=== PATIENT | male | born 1955 | race Caucasian/White ===

== ENCOUNTER 2019-03-15 01:48 | Inpatient (IN) | payer MEDICAID, SELFPAY ==
[2019-03-15] VITALS (15 sets, daily range): BP systolic 125–173; BP diastolic 61–91; PULSE 55–171; RESP 16–24; TEMP 36.6–36.9; O2SAT 92–100; BMI 35.2
--- NOTE | 2019-03-15 02:04 | ED_ITS ---
Entered by Perri Zaidi, acting as scribe for Gali Manrique HPI - Altered Mental Status General: Chief Complaint: Back Pain/Injury Stated Complaint: CONFUSION/AMS Time Seen by Provider: 03/15/19 02:03 Source: EMS Mode of arrival: EMS History of Present Illness: HPI narrative: 63 y/o male presents to the ED with some mental status changes. EMS states he was slow to respond and sluggish upon their arrival. He is a known diabetic and his sugar was 63. Pt has not been eating and drinking much, per EMS. Upon arrival at [facility], pt is complaining of left flank pain. Pt has audible wheezes upon triage. MD complaint: altered mental status and confusion Severity: mild Treatments prior to arrival: oxygen and other (OJ) Review of Systems Const: Denies: fever, chills, body aches or diaphoresis Eyes: Denies: change in vision or blurry vision ENMT: Denies: throat pain, painful swallowing, hoarseness, ear pain, ear discharge, Change in hearing or nasal discharge Card: Denies: chest pain, palpitations, irregular heart rhythm, syncope, pre-syncope, shortness of breath on exertion or shortness of breath when lying down GI: Denies: abdominal pain, nausea, vomiting, vomiting blood, coffee grounds in vomit, diarrhea, constipation, cramping, blood in stool or black tarry stool : Denies: difficulty urinating, painful urination, urinary frequency, urinary urgency, decreased urine ouput, urinary incontinence or blood in urine Musc: Denies: neck pain, back pain, extremity pain, extremity swelling, joint pain, joint swelling, joint warmth or joint stiffness Skin/Breast: Denies: rash, skin tenderness or yellow skin Neuro: Denies: headache, numbness in extremities, weakness in extremities, changes in sensation, lack of coordination, difficulty walking, dizziness, v ertigo or confusion Endo: Denies: excessive thirst, tired all the time, cold intolerance, excessive sweating, flushing or hot flashes Alfonso/Lymph: Denies: easy bruising, easy bleeding, petechiae or enlarged lymph nodes All/Imm: Denies: hives, throat swelling, tongue swelling, facial swelling or acute wheezing PFSH ED PFSH: Statuses (acute, chronic, etc) shown below reflect problem list status as previously entered and may not be historically accurate Medical History (Updated 03/15/19 @ 02:09 by Perri Zaidi) COPD (chronic obstructive pulmonary disease) (Acute) Social History Smoking and tobacco status: never smoked Physical Exam HENMT: COMMON NORMALS: normocephalic, head/scalp atraumatic, hearing grossly normal bilaterally, external ears normal, EAC's normal, external nose normal and moist oral mucous membranes HEAD & SCALP: normal to inspection, normocephalic and atraumatic FACE & SINUS: normal facial exam and face symmetric NOSE: external nose normal and nares normal EXTERNAL EAR: Yes external ears normal EXTERNAL AUDITORY CANAL: EAC's normal MOUTH: oral and palatal mucosa normal and tongue normal Eye: COMMON NORMALS: PERRL, EOMs intact bilaterally, conjunctivae normal and no scleral icterus GENERAL EYE: normal appearance of both eyes and normal light reflex CONJUNCTIVA: Yes conjunctivae normal SCLERA: sclerae normal CORNEA: Yes corneas normal PUPIL: Yes PERRL DIRECT OPHTHALMOSCOPY: Yes normal light reflex Neck/C-Spine: COMMON NORMALS: full ROM, no lymphadenopathy, supple, no meningeal signs and no JVD GENERAL: Yes normal visual inspection and Yes trachea midline CERVICAL SPINE: Yes cervical ROM normal Chest: COMMONS NORMALS: inspection of chest normal and palpation of chest normal Cardio: COMMON NORMALS: no JVD, regular rate, regular rhythm, S1 normal heart sound, S2 normal heart sound, no gallops, no clicks, no murmurs and no rub JUGULAR VENOUS DISTENTION: no JVD RATE: regular rate RHYTHM: regular rhythm HEART SOUNDS: S1 normal and S2 normal GI: COMMON NORMALS: soft to palpation, non-tender, no hepatosplenomegaly and no masses INSPECTION: Yes normal to inspection PALPATION: Yes soft and Yes no hepatosplenomegaly : COMMON NORMALS: Yes no CVA tenderness BLADDER/KIDNEY EXAM: Yes no CVA tenderness Back/Pelvis: COMMON NORMALS: no CVA tenderness, thoracic and lumbar spine normal to inspection, no thoracic nor lumbar tenderness and thoraco-lumbar ROM normal Extremity: COMMON NORMALS: normal to inspection, full ROM, normal capillary refill, no joint enlargement, no clubbing, cyanosis or edema and no calf tenderness Neuro: COMMON NORMALS: CN's II-XII intact bilaterally, moves all extremities, no focal motor deficits and no sensory deficits noted MENINGEAL SIGNS: Yes no meningeal signs Psych: COMMON NORMALS: mental status grossly normal, thought process normal, cooperative, affect normal, speech normal and activity/motor behavior normal SPEECH: Yes normal speech THOUGHT PROCESS: normal thought process Skin: COMMON NORMALS: no rashes or lesions noted, skin turgor normal, no jaundice, no petechiae and no mottling GENERAL SKIN EXAM: no rashes or lesions noted and turgor normal Course Vital Signs: Vital signs: Vital Signs Temperature 98.4 F 03/15/19 02:07 Pulse Rate 55 L 03/15/19 03:09 Respiratory Rate 20 H 03/15/19 03:05 Blood Pressure 142/81 03/15/19 02:07 Pulse Oximetry 98 03/15/19 03:05 MDM - Altered Mental Status MDM Narrative: Medical decision making narrative: Dilcia comes in with altered mental status. EMS reports low blood sugar and improvement with oral replacement of sugar. Upon my examination the patient appears as though he is in respiratory distress. After starting him on nitroglycerin he is greatly improved. He looks as though he has a metabolic acidosis I think this is secondary to his uremia. He has acute on chronic renal failure. Family has arrived and state the patient is at his baseline as far as breathing and mental function. Is unclear what caused the patient's hypoglycemia or his acute on chronic renal failure but I believe he will need to be admitted for further evaluation. I reviewed the case in full with , who is agreeable to admission for further evaluation and care. Lab Data: Attestation: I reviewed the patient's lab results. Labs: Lab Results 03/15/19 03/15/19 03/15/19 Range/Units 01:30 01:30 01:30 WBC 11.4 H (4.0-10.0) 10^3/ uL RBC 3.98 L (4.1-5.3) 10^6/u L Hgb 11.5 L (11.7-16.6) g/dL Hct 35.3 L (42.0-52.0) % MCV 88.7 (80-94) fL MCH 28.9 (28.0-34.0) pg MCHC 32.6 (30.0-36.0) g/dL RDW 13.7 (12.1-15.1) % Plt Count 364 (130-400) 10^3/c mm MPV 9.5 (7.4-10.4) fL Neut % (Auto) 81.7 % Lymph % (Auto) 12.9 % [place] % (Auto) 4.8 % Eos % (Auto) 0.1 % Baso % (Auto) 0.3 % Neut # (Auto) 9.3 H (1.8-7.7) 10^3/u L Lymph # (Auto) 1.5 (0.8-4.8) 10^3/u L [place] # (Auto) 0.6 (0.2-0.9) 10^3/u L Eos # (Auto) 0.0 (0.0-0.8) 10^3/u L Baso # (Auto) 0.0 (0.0-0.1) 10^3/u L Nucleated RBC % (a uto) 0 % Nucleated RBCs # 0.0 /100WBC PT 13.70 H (10.5-13.3) SECO NDS INR 1.02 (0.8-1.2) Specimen Type Sample Site ABG pH (7.35-7.45) ABG pCO2 (35-45) mmHg ABG pO2 (80.0-100.0) mmH g ABG HCO3 (22-26) mmol/L ABG Base Excess (-2.0-2.0) mmol/ L Ted Test Hematocrit (42-52) % O2 Delivery Device O2 Liters/Min % Mailroom Personnel ID Sodium 135 L (136-145) mmol/L Potassium 5.1 (3.5-5.1) mmol/L Chloride 91 L (98-107) mmol/L Carbon Dioxide 21 L (22-29) mmol/L Anion Gap 28.1 H (5-19) BUN 149 H* (8-23) mg/dL Creatinine 5.9 H* (0.7-1.2) mg/dL GFR Calculation 9.7 L (90-130) mL/min Glucose 104 (74-106) mg/dL Lactic Acid (0.5-2.2) mmol/L Calcium 9.1 (8.8-10.2) mg/Dl Magnesium 2.7 H (1.7-2.3) mg/dL Total Bilirubin 0.2 (0.15-1.2) mg/dL AST 26 (0-40) U/L ALT 23 (0-41) U/L Alkaline Phosphata se 69 (40-130) IU/L Ammonia (16-60) umol/L Troponin T Baselin e (0-15) ng/mL Troponin T 120 Min swati (0-15) ng/mL Delta Troponin T (0-10) ABS# NT-Pro-B Natriuret Pep 1862 H (0-125) pg/mL Total Protein 8.0 (6.6-8.7) g/dL Albumin 4.2 (3.5-5.2) g/dL Globulin 3.8 (1.3-4.6) g/dL Lipase 57 (13-60) U/L Ethyl Alcohol < 10 (0-10) mg/dL 03/15/19 03/15/19 03/15/19 Range/Units 01:30 02:58 02:58 WBC (4.0-10.0) 10^3/ uL RBC (4.1-5.3) 10^6/u L Hgb (11.7-16.6) g/dL Hct (42.0-52.0) % MCV (80-94) fL MCH (28.0-34.0) pg MCHC (30.0-36.0) g/dL RDW (12.1-15.1) % Plt Count (130-400) 10^3/c mm MPV (7.4-10.4) fL Neut % (Auto) % Lymph % (Auto) % [place] % (Auto) % Eos % (Auto) % Baso % (Auto) % Neut # (Auto) (1.8-7.7) 10^3/u L Lymph # (Auto) (0.8-4.8) 10^3/u L [place] # (Auto) (0.2-0.9) 10^3/u L Eos # (Auto) (0.0-0.8) 10^3/u L Baso # (Auto) (0.0-0.1) 10^3/u L Nucleated RBC % (a uto) % Nucleated RBCs # /100WBC PT (10.5-13.3) SECO NDS INR (0.8-1.2) Specimen Type Sample Site ABG pH (7.35-7.45) ABG pCO2 (35-45) mmHg ABG pO2 (80.0-100.0) mmH g ABG HCO3 (22-26) mmol/L ABG Base Excess (-2.0-2.0) mmol/ L Ted Test Hematocrit (42-52) % O2 Delivery Device O2 Liters/Min % Mailroom Personnel ID Sodium (136-145) mmol/L Potassium (3.5-5.1) mmol/L Chloride (98-107) mmol/L Carbon Dioxide (22-29) mmol/L Anion Gap (5-19) BUN (8-23) mg/dL Creatinine (0.7-1.2) mg/dL GFR Calculation (90-130) mL/min Glucose (74-106) mg/dL Lactic Acid 0.9 (0.5-2.2) mmol/L Calcium (8.8-10.2) mg/Dl Magnesium (1.7-2.3) mg/dL Total Bilirubin (0.15-1.2) mg/dL AST (0-40) U/L ALT (0-41) U/L Alkaline Phosphata se (40-130) IU/L Ammonia 12 L (16-60) umol/L Troponin T Baselin e 245 H* (0-15) ng/mL Troponin T 120 Min swati (0-15) ng/mL Delta Troponin T (0-10) ABS# NT-Pro-B Natriuret Pep (0-125) pg/mL Total Protein (6.6-8.7) g/dL Albumin (3.5-5.2) g/dL Globulin (1.3-4.6) g/dL Lipase (13-60) U/L Ethyl Alcohol (0-10) mg/dL 03/15/19 03/15/19 Range/Units 03:20 04:00 WBC (4.0-10.0) 10^3/ uL RBC (4.1-5.3) 10^6/u L Hgb (11.7-16.6) g/dL Hct (42.0-52.0) % MCV (80-94) fL MCH (28.0-34.0) pg MCHC (30.0-36.0) g/dL RDW (12.1-15.1) % Plt Count (130-400) 10^3/c mm MPV (7.4-10.4) fL Neut % (Auto) % Lymph % (Auto) % [place] % (Auto) % Eos % (Auto) % Baso % (Auto) % Neut # (Auto) (1.8-7.7) 10^3/u L Lymph # (Auto) (0.8-4.8) 10^3/u L [place] # (Auto) (0.2-0.9) 10^3/u L Eos # (Auto) (0.0-0.8) 10^3/u L Baso # (Auto) (0.0-0.1) 10^3/u L Nucleated RBC % (a uto) % Nucleated RBCs # /100WBC PT (10.5-13.3) SECO NDS INR (0.8-1.2) Specimen Type Arterial Sample Site Radial, left ABG pH 7.27 L (7.35-7.45) ABG pCO2 45.2 H (35-45) mmHg ABG pO2 105.0 H (80.0-100.0) mmH g ABG HCO3 20.8 L (22-26) mmol/L ABG Base Excess -5.9 L (-2.0-2.0) mmol/ L Ted Test Pos Hematocrit 31.6 L (42-52) % O2 Delivery Device Nc O2 Liters/Min 5.0 % Mailroom Personnel ID [email or web address] Sodium (136-145) mmol/L Potassium (3.5-5.1) mmol/L Chloride (98-107) mmol/L Carbon Dioxide (22-29) mmol/L Anion Gap (5-19) BUN (8-23) mg/dL Creatinine (0.7-1.2) mg/dL GFR Calculation (90-130) mL/min Glucose (74-106) mg/dL Lactic Acid (0.5-2.2) mmol/L Calcium (8.8-10.2) mg/Dl Magnesium (1.7-2.3) mg/dL Total Bilirubin (0.15-1.2) mg/dL AST (0-40) U/L ALT (0-41) U/L Alkaline Phosphata se (40-130) IU/L Ammonia (16-60) umol/L Troponin T Baselin e (0-15) ng/mL Troponin T 120 Min swati 214.50 H (0-15) ng/mL Delta Troponin T -30.50 L (0-10) ABS# NT-Pro-B Natriuret Pep (0-125) pg/mL Total Protein (6.6-8.7) g/dL Albumin (3.5-5.2) g/dL Globulin (1.3-4.6) g/dL Lipase (13-60) U/L Ethyl Alcohol (0-10) mg/dL Imaging Data^: CXR: My impression: Cardiomegaly and mild pulmonary vascular congestion. CT Head: Radiologist's impression: [place] [address] CT Scan Report Signed Patient: Helio Reynoso Unit #: [id number] : 1955 Age/Sex: 63 / M ADM Date: 03/15/19 Loc: ER Room/Bed: Attending Dr: Ordering Provider/Ordering MD: Gali Manrique DO Date of Service: 03/15/19 Procedure(s): CT head wo con* [id number] Accession Number(s): [id number] Report Number: [id number] PROCEDURE INFORMATION: Exam: CT Head Without Contrast Exam date and time: 03/15/2019 2:47 AM Age: 63 years old Clinical indication: Pain; Altered mental status/memory loss; Headache not specified; Additional info: Phan/ams TECHNIQUE: Imaging protocol: Computed tomography of the head without contrast. Total DLP: 1630.24 mGy-cm Radiation optimization: All CT scans at this facility use at least one of these dose optimization techniques: automated exposure control; mA and/or kV adjustment per patient size (includes targeted exams where dose is matched to clinical indication); or iterative reconstruction. COMPARISON: MRI IAC'S w/wo* [id number] 01/05/2017 8:35 AM FINDINGS: Brain: Few chronic lacunar infarcts bilaterally. Brain atrophy with hypodensities in the periventricular/deep white matter that suggest chronic microvascular ischemia. Ventricles: No hydrocephalus. Bones/joints: No acute fracture. Sinuses: Trace chronic paranasal sinus disease. Mastoid air cells: No significant mastoid effusion. Soft tissues: Unremarkable. Vasculature: Vascular calcifications. CT/CT head wo con* [id number] IMPRESSION: No acute intracranial abnormality. Radiation Dose CTDIVOL = (mGy): DLP = 1630.24 (mGy-cm) Dictated By: Misael Small MD Signed By: Misael Small MD Signed Date/Time: 03/15/19421 DD/ 0 CT Abd/Pel: Radiologist's impression: [address] [address] [address] Scan Report Signed Patient: Helio Reynoso Unit #: [id number] : 1955 Age/Sex: 63 / M ADM Date: 02/23 04/13 Loc: ER Room/Bed: Attending Dr: Ordering Provider/Ordering MD: Gali Manrique DO Date of Service: 03/15/19 Procedure(s): CT kidney stone [id number] Accession Number(s): [id number] Report Number: [id number] PROCEDURE INFORMATION: Exam: CT Abdomen And Pelvis Without Contrast Exam date and time: 03/15/2019 2:46 AM Age: 63 years old Clinical indication: Abdominal pain; Flank; Left; Additional info: Flank/abdominal pain TECHNIQUE: Imaging protocol: Computed tomography of the abdomen and pelvis without contrast. Total DLP: 1858.2 mGy-cm Radiation optimization: All CT scans at this facility use at least one of these dose optimization techniques: automated exposure control; mA and/or kV adjustment per patient size (includes targeted exams where dose is matched to clinical indication); or iterative reconstruction. COMPARISON: US Renal Kidney Structu* [id number] 01/15/2019 7:41 AM FINDINGS: Mediastinum: Small hiatal hernia. Liver: Normal. No mass. Gallbladder and bile ducts: Cholelithiasis without pericholecystic inflammatory changes. Pancreas: Normal. No ductal dilation. Spleen: Calcified splenic granulomas. Adrenals: Normal. No mass. Kidneys and ureters: Normal. No hydronephrosis. Stomach and bowel: Large right lumbar hernia containing colon without inflammation or obstruction. Appendix: Normal appendix. Intraperitoneal space: No free air. No significant fluid collection. Vasculature: No abdominal aortic aneurysm. Lymph nodes: No enlarged lymph nodes. Bladder: Unremarkable as visualized. Reproductive: Unremarkable as visualized. Bones/joints: Postsurgical changes affect the right iliac bone. Soft tissues: Unremarkable. CT/CT kidney stone [id number] IMPRESSION: 1. Large right lumbar hernia containing colon without inflammation or obstruction. 2. Cholelithiasis without pericholecystic inflammatory changes. Radiation Dose CTDIVOL = (mGy): DLP = 1858.2 (mGy-cm) Dictated By: Misael Small MD Signed By: Misael Small MD Signed Date/Time: 03/15/19438 DD/ 7 EKG Data^: EKG 1: Attestation: I personally reviewed and interpreted this EKG as follows: Computer generated interpretation: 0238 -normal sinus rhythm at 61 beats a minute, no acute ST or T wave changes. Prolonged QT. EKG 2: Attestation: I personally reviewed and interpreted this EKG as follows: Interpretation: EKG at 0424 -normal sinus rhythm at 64 beats a minute, no acute ST or T wave changes, normal HI interval, normal QTC. Discharge Plan Discharge Prescriptions: No Action Daily Multi-Vitamin Tablet 1 tab PO DAILY RF: 0 furosemide 40 mg tablet 80 mg PO BID RF: 0 Lantus U-100 Insulin 100 unit/mL solution 40 unit SUBCUT BID RF: 0 metoprolol succinate 100 mg tablet extended release 24 hr 200 mg PO DAILY RF: 0 metolazone 5 mg tablet 5 mg PO DAILY RF: 0 aspirin 81 mg tablet,delayed release (DR/EC) 81 mg PO DAILY RF: 0 levothyroxine 88 mcg tablet 88 mcg PO DAILY RF: 0 clonidine HCl 0.2 mg tablet 0.2 mg PO TID RF: 0 amlodipine 10 mg tablet 10 mg PO DAILY RF: 0 ferrous sulfate 325 mg (65 mg iron) tablet,delayed release (DR/EC) 325 mg PO DAILY RF: 0 Novolog Flexpen U-100 Insulin 100 unit/mL (3 mL) insulin pen 18 unit SUBCUT BID RF: 0 Vitamin D3 25 mcg (1,000 unit) tablet 1,000 unit PO DAILY RF: 0 Symbicort 160-4.5 mcg/actuation HFA aerosol inhaler 2 puff INHALATION BID RF: 0 Fish Oil 360-1,200 mg capsule 1 cap PO DAILY RF: 0 Coding Level of Care Code ED Asset Analyst for Chg Fwd The documentation recorded by the roxieibDejuan harper Ashley, accurately reflects the service I personally performed and the decisions made by Hilaria welch Eli N Mar 15, 2019 01:48
--- NOTE | 2019-03-15 02:07 | ECG_ITS ---
Measurements Intervals [place] Rate: 70 P: 136 PA: 162 QRS: 33 QRSD: 105 T: 65 QT: 425 QTc: 460 Possible ECTOPIC ATRIAL RHYTHM-ABNORMAL RHYTHM ECG Compared to ECG 01/11/2019 16:42:34 Ectopic atrial rhythm now present Sinus rhythm no longer present T-wave abnormality no longer present Baseline artifact, need to repeat the study Electronically Signed On 03-15-2019 20:24:23 TELLER SUPERVISOR by Lam Murguia M.D. [email or web address]
--- NOTE | 2019-03-15 02:07 | XR_ITS ---
WS: [id number] CHEST XRAY TECHNIQUE: Portable chest. CLINICAL INFORMATION: cough COMPARISON: January 12, 2019 FINDINGS: Heart: Cardiomegaly. Lungs: Chronic emphysematous changes. No acute-appearing pulmonary infiltrates. Chronic interstitial thickening. No focal pneumonia. Bones: Normal visualized bony structures. XR/XR chest 1V portable [id number] IMPRESSION: No acute chest findings
[2019-03-15 02:17] LABS: Basophils % 0.3 %; Eosinophils % 0.1 %; Hematocrit 35.3 % (42.0-52.0); Hemoglobin 11.5 g/dL (11.7-16.6); Lymphocytes # 1.5 10^3/uL (0.8-4.8); Lymphocytes % 12.9 %; Mean Corpuscular HGB Conc 32.6 g/dL (30.0-36.0); Mean Corpuscular Hemoglobin 28.9 pg (28.0-34.0); Mean Corpuscular Volume 88.7 fL (80-94); Mean Platelet Volume 9.5 fL (7.4-10.4); Monocytes # 0.6 10^3/uL (0.2-0.9); Monocytes % 4.8 %; Neutrophils # 9.3 10^3/uL (1.8-7.7); Neutrophils % 81.7 %; Nucleated Red Blood Cells % 0 %; Platelet Count 364 10^3/cmm (130-400); Red Blood Count 3.98 10^6/uL (4.1-5.3); Red Cell Distribution Width 13.7 % (12.1-15.1); White Blood Count 11.4 10^3/uL (4.0-10.0)
[2019-03-15 02:21] LABS: INR 1.02 (0.8-1.2)
[2019-03-15 02:31] LABS: Troponin(5th) Baseline 245 ng/mL (0-15)
[2019-03-15 02:38] LABS: Alanine Aminotransferase 23 U/L (0-41); Albumin Level 4.2 g/dL (3.5-5.2); Alkaline Phosphatase 69 IU/L (40-130); Anion Gap 28.1 (5-19); Aspartate Amino Transferase 26 U/L (0-40); Calcium 9.1 mg/Dl (8.8-10.2); Carbon Dioxide 21 mmol/L (22-29); Chloride 91 mmol/L (98-107); Globulin 3.8 g/dL (1.3-4.6); Glomerular Filtration Rate 9.7 mL/min (90-130); Glucose 104 mg/dL (74-106); Lipase 57 U/L (13-60); Magnesium 2.7 mg/dL (1.7-2.3); NT Pro B Type Natriuretic Pept 1862 pg/mL (0-125); Potassium 5.1 mmol/L (3.5-5.1); Sodium 135 mmol/L (136-145); Total Bilirubin 0.2 mg/dL (0.15-1.2)
[2019-03-15 02:44] LABS: Alcohol Level < 10 mg/dL (0-10)
[2019-03-15 02:45] LABS: Blood Urea Nitrogen 149 mg/dL (8-23)
[2019-03-15] MEDS: levalbuterol 1.25 mg/3 mL Neb 3.75 MG INHALATION (02:49)
[2019-03-15] MEDS: sodium chloride 0.9% 1,000 ML 100 ML IV (02:56)
[2019-03-15] MEDS: nitroglycerin drip 50 MG/250 ML PREMIX 6 MG (02:57)
[2019-03-15 03:20] LABS: Lactic Sepsis W/Reflex 0.9 mmol/L (0.5-2.2)
[2019-03-15 03:31] LABS: ABG PCO2 45.2 mmHg (35-45); ABG PH Result 7.27 (7.35-7.45); Arterial Blood Gas Hematocrit 31.6 % (42-52); Base Excess ABG -5.9 mmol/L (-2.0-2.0); Blood Gas Allen Test Pos; Blood Gas Sample Site Radial, left; Blood Gas Sample Type Arterial; HCO3 ABG 20.8 mmol/L (22-26); Oxygen Device NC
--- NOTE | 2019-03-15 04:07 | ECG_ITS ---
Measurements Intervals [place] Rate: 64 P: 75 SC: 164 QRS: 66 QRSD: 102 T: 87 QT: 424 QTc: 438 SINUS RHYTHM Compared to ECG 01/11/2019 16:42:34 T-wave abnormality no longer present Electronically Signed On 03-15-2019 20:33:38 TELEVISION TECHNICIAN by Lam Murguia M.D. [email or web address]
[2019-03-15 04:21] LABS: Ammonia 12 umol/L (16-60)
--- NOTE | 2019-03-15 04:31 | PC.NURSE ---
2 HOUR TROPONIN 214.5
--- NOTE | 2019-03-15 05:30 | P.HP_ITS ---
Providers/Chief Complaint Primary Care Provider: Carla Ceballos MD Chief Complaint: CONFUSION/AMS History of Present Illness Helio Reynoso is a 63 year old male who carries diagnoses of chronic kidney disease stage IV was scheduled to see Dr. Reyes and Dr. Rapp for fistula placement and initiation of dialysis came in with chief complaint of altered mental status. He was brought in by his family members after altered mental status which was confusion and slurred speech blood sugar was checked it was 62, he was given couple of juices and blood sugar was fluctuating between 60-70 he was brought to ER for further evaluation, his mentation improved by the time he was evaluated in ER, patient is stating that he is compliant with his medication and is not yet ready for dialysis. He is taking metolazone and Lasix and is making urine without any difficulty, he has been having chronic back pains especially left side hip pain because of his abnormal gait(1 leg is shorter than the other). He has been using 4 L of oxygen [id number] for his oxygen dependent COPD, he has been gaining weight however able to lay flat and sleep supine. Hospital service was requested to admit the patient because of recent hypoglyc emic event and high troponin without any ischemic changes on EKG, He was hypertensive systolic blood pressure 180s, he was started on nitroglycerin drip which I have discontinued On my evaluation systolic blood pressure was 152/90, patient was awake alert oriented x3, able to give me all the details Review of Systems Const: Reports: body aches, change in appetite, change in weight, fatigue and malaise; Denies: fever or chills Eyes: Denies: change in vision ENMT: Denies: throat pain Card: Reports: edema and swelling of feet/ankles; Denies: chest pain, palpitations or irregular heart rhythm Resp: Denies: shortness of breath GI: Denies: abdominal pain, nausea or coffee grounds in vomit : Reports: flank pain and decreased urine ouput; Denies: difficulty urinating or urinary frequency Musc: Reports: back pain and joint pain; Denies: neck pain Skin/Breast: Reports: new lesion, dry skin and nail changes; Denies: rash or redness Neuro: Denies: headache Psych: Reports: anxiety Endo: Denies: excessive urination or excessive thirst Alfonso/Lymph: Reports: easy bruising, easy bleeding and petechiae All/Imm: Denies: hives Medications/Allergies Home Medications Medication Instructions Recorded Confirmed Last Taken Type amlodipine 10 mg PO DAILY 03/15/19 03/15/19 03/14/19 History aspirin 81 mg PO DAILY 03/15/19 03/15/19 03/14/19 History budesonide-formoterol [Symbicort] 2 puff INHALATION BID 03/15/19 03/15/19 03/14/19 History cholecalciferol (vitamin D3) 1,000 unit PO DAILY 03/15/19 03/15/19 03/14/19 History [Vitamin D3] clonidine HCl 0.2 mg PO TID 03/15/19 03/15/19 03/14/19 History ferrous sulfate 325 mg PO DAILY 03/15/19 03/15/19 03/14/19 History furosemide 80 mg PO BID 03/15/19 03/15/19 1 Day Ago History ~03/14/19 insulin aspart U-100 [Novolog 18 unit SUBCUT BID 03/15/19 03/15/19 03/14/19 History Flexpen U-100 Insulin] insulin glargine [Lantus U-100 40 unit SUBCUT BID 03/15/19 03/15/19 03/14/19 History Insulin] levothyroxine 88 mcg PO DAILY 03/15/19 03/15/19 03/14/19 History metolazone 5 mg PO DAILY 03/15/19 03/15/19 03/14/19 History metoprolol succinate 200 mg PO DAILY 03/15/19 03/15/19 03/14/19 History multivitamin [Daily Multi-Vitamin] 1 tab PO DAILY 03/15/19 03/15/19 03/14/19 History omega-3 fatty acids-fish oil [Fish 1 cap PO DAILY 03/15/19 03/15/19 03/14/19 History Oil] Allergies Allergy/AdvReac Type Severity Reaction Status Date / Time No Known Allergies Allergy Verified 03/15/19 02:38 PFSH Acute PFSH: Statuses (acute, chronic, etc) shown below reflect problem list status as previously entered and may not be historically accurate Medical History (Updated 03/15/19 @ 06:19 by Rosita Madera MD) Blood transfusion abn reaction or complication, no procedure mishap (Acute) Cataract disorder type 14 (Acute) CKD (chronic kidney disease), stage IV (Acute) COPD (chronic obstructive pulmonary disease) (Acute) COPD (chronic obstructive pulmonary disease) (Acute) Diastolic congestive heart failure (Acute) Hypothyroidism (Acute) Insulin dependent type 2 diabetes mellitus (Acute) Iron deficiency anemia (Acute) Morbid obesity (Acute) Nonalcoholic liver disease, chronic (Acute) Surgical History (Updated 03/15/19 @ 05:34 by Rosita Madera MD) History of open reduction and internal fixation (ORIF) procedure (Acute) Family History (Updated 03/15/19 @ 05:34 by Rosita Madera MD) Other CAD (coronary artery disease) Hyperlipidemia Hypertension Denies family history of Cancer Social History (Updated 03/15/19 @ 05:34 by Rosita Madera MD) Smoking and tobacco status: former smoker Alcohol intake: never Substance/Drug Use: never Household members: family Vitals/I&O/Wt Last Vital Signs Temp 98.4 F 03/15/19 02:07 Pulse 55 L 03/15/19 03:09 Resp 20 H 03/15/19 03:05 BP 142/81 03/15/19 02:07 Pulse Ox 98 03/15/19 03:05 Weight last 48 hrs Weight 102.058 kg Physical Exam Narrative: EXAM NARRATIVE: Patient was sitting in his bed without any active distress Morbidly obese male Awake alert oriented x3 GCS 15 No focal deficit Bilateral lower extremity edema with visible skin wrinkling dorsalis pedis pulses 1+ bilaterally S1, S2 mild positive JVD Abdomen soft, distended, with obesity, bowel sounds present Lung auscultation reveals bilateral adequate air movement without adventitious sounds Skin shows multiple petechiae and purpura Yellow nails Pallor positive Impaired cognition however able to comprehend my questions give relevant answers Data : 03/15/19 01:30 03/15/19 01:30 Micro: Microbiology 03/15/19 02:58 Blood Culture - Preliminary Blood SPECIMEN COLLECTED 03/15/19 02:57 Blood Culture - Preliminary Blood SPECIMEN COLLECTED A&P Assessment and plan (1) Acute kidney injury superimposed on chronic kidney disease: Status: Acute Code(s): N17.9 - Acute kidney failure, unspecified; N18.9 - Chronic kidney disease, unspecified (2) Hypoglycemia: Status: Acute Code(s): E16.2 - Hypoglycemia, unspecified (3) Polypharmacy: Status: Acute Code(s): Z79.899 - Other intermediate (current) drug therapy (4) Hypertensive urgency: Status: Acute Code(s): I16.0 - Hypertensive urgency Additional A&P Information Acute on chronic kidney disease stage IV progressing towards stage V He is on Lasix and metolazone and is making good amount of urine Because of his worsening kidney function his medications needs to be readjusted Considering high BUN and metabolic acidosis he will be given 1 amp of bicarb No acute indications for urgent dialysis Patient will follow-up with Dr. Reyes for fistula placement and Dr. Rapp on outpatient settings Hypertensive urgency: Currently blood pressure 154/90 on nitroglycerin drip which I have discontinued, I will resume his home medication including clonidine prevent rebound hypertension Type 2 diabetes Insulin dose will be reduced to 40 once a day instead of twice a day for long- acting insulin Because of kidney failure dose adjustment is required Hypothyroidism: Continue thyroxine 88 mcg Oxygen dependent COPD: 4 L [id number], no active exacerbation no active wheezing High troponins are most likely secondary to fluid overload due to renal failure His EF was preserved without diastolic dysfunction Patient is DNR/DNI Attestations Medical Necessity Statement*: Anticipating his discharge in less than 48 hours, he was admitted for management of hypoglycemia and dose readjustment of insulin because of worsening kidney function Time Spent in Patient Care: (>than 50% of time spent in counselling and/or direct pt care on unit) . 50 Coding Level of Care Code Acute Supervisor [employer] for Brynn Castro Diagnoses Acute kidney injury superimposed on chronic kidney disease N17.9; N18.9 Hypoglycemia E16.2 Polypharmacy Z79.899 Hypertensive urgency I16.0
[2019-03-15] MEDS: FUROsemide 10 mg/mL SDV 4mL 40 MG IVP ×2 (06:07→06:14)
--- NOTE | 2019-03-15 06:16 | PC.NURSE ---
Sodium Bicarb NOT GIVEN. (Santy) will reorder with D5.
[2019-03-15 06:58] LABS: Urine Appearance Clear (CLEAR); Urine Color Yellow (Yellow); pH Urine 5 (5-7)
[2019-03-15 06:59] LABS: Bilirubin Urine Neg (NEGATIVE); Blood Urine 2+ (Negative); Glucose Urine UA Norm (Normal); Ketones Urine Negative (Negative); Leukocyte Esterase Urine Negative (Negative); Nitrate Urine Negative (Negative); Protein Urine 3+ (Negative); Specific Gravity, Urine 1.015 (1.005-1.030); Urobilinogen Urine Norm (Negative)
[2019-03-15 07:05] LABS: Amorphous Sediment Urine 1+; Bacteria Urine 1+; RBC Urine 0-4 /hpf (0-2); WBC Urine RARE /hpf (0-5)
[2019-03-15 07:06] LABS: Add Urine Culture? No; Coarse Granular Casts Urine 0-4 /lpf
--- NOTE | 2019-03-15 08:07 | ECG_ITS ---
Measurements Intervals [place] Rate: 61 P: 89 UT: 160 QRS: 67 QRSD: 105 T: 73 QT: 470 QTc: 476 SINUS RHYTHM PROLONGED QT INTERVAL Compared to ECG 01/11/2019 16:42:34 Prolonged QT interval now present T-wave abnormality no longer present Electronically Signed On 03-15-2019 20:33:12 CAN CAPPER by Lam Murguia M.D. [id number]
[2019-03-15 08:09] LABS: Troponin 5 6HR 218.3 ng/L (0-15); Troponin 5 6HR Delta -26.7 ng/L (0-12)
--- NOTE | 2019-03-15 09:14 | PC.NURSE ---
BREAKFAST TRAY HAS BEEN DELIVERED AND PT ATE.
[2019-03-15 09:27] LABS: Amphetamines Screen Urine Negative (Negative); Barbiturates Screen Urine Negative (Negative); Benzodiazepines Screen Urine Negative (Negative); Cocaine Screen Urine Negative (Negative); Opiate Screen Urine Negative (Negative); PCP Screen Urine Negative (Negative); THC Screen Urine Negative (Negative)
[2019-03-15 11:04] LABS: Glucose Point of Care 421 mg/dL (70-110)
[2019-03-15 11:05] LABS: Estmated Average Glucose 151; Hemoglobin A1C 6.9 % (4.0-6.0)
--- NOTE | 2019-03-15 11:05 | PC.NURSE ---
ACCU-CHEK done 421
--- NOTE | 2019-03-15 12:14 | PM.CONSULT ---
Providers/Reason For Consult Consulting Physican/Specialty*: felicia kay md telenephrology Reason for Consult*: carter on ckd, hyperkalemia, AMS Requesting Physcian: Dr. Madera Primary Care Provider: Carla Ceballos MD History of Present Illness History of Present Illness Helio Reynoso is a 63 year old male CKD stage 4. was last here around 2018. lost 30 lbs since then and cr has risen above 5. he is now less sob, less swollen, but is confused, weak, nauseated. Review of Systems Const: Reports: change in appetite, change in weight, fatigue and malaise Card: Reports: edema Resp: Reports: shortness of breath Neuro: Reports: weakness in extremities, dizziness and confusion Psych: Reports: change in appetite Endo: Reports: other (diabeyic) Meds/Allergies Home Medications and Allergies Home Medications Medication Instructions Recorded Confirmed Type amlodipine 10 mg PO DAILY 03/15/19 03/15/19 History aspirin 81 mg PO DAILY 03/15/19 03/15/19 History budesonide-formoterol [Symbicort] 2 puff INHALATION BID 03/15/19 03/15/19 History cholecalciferol (vitamin D3) 1,000 unit PO DAILY 03/15/19 03/15/19 History [Vitamin D3] clonidine HCl 0.2 mg PO TID 03/15/19 03/15/19 History ferrous sulfate 325 mg PO DAILY 03/15/19 03/15/19 History furosemide 80 mg PO BID 03/15/19 03/15/19 History insulin aspart U-100 [Novolog 18 unit SUBCUT BID 03/15/19 03/15/19 History Flexpen U-100 Insulin] insulin glargine [Lantus U-100 40 unit SUBCUT BID 03/15/19 03/15/19 History Insulin] levothyroxine 88 mcg PO DAILY 03/15/19 03/15/19 History metolazone 5 mg PO DAILY 03/15/19 03/15/19 History metoprolol succinate 200 mg PO DAILY 03/15/19 03/15/19 History multivitamin [Daily Multi-Vitamin] 1 tab PO DAILY 03/15/19 03/15/19 History omega-3 fatty acids-fish oil [Fish 1 cap PO DAILY 03/15/19 03/15/19 History Oil] Allergies Allergy/AdvReac Type Severity Reaction Status Date / Time No Known Allergies Allergy Verified 03/15/19 02:38 PFSH Acute PFSH: Statuses (acute, chronic, etc) shown below reflect problem list status as previously entered and may not be historically accurate Medical History (Updated 03/15/19 @ 06:19 by Rosita Madera MD) Blood transfusion abn reaction or complication, no procedure mishap (Acute) Cataract disorder type 14 (Acute) CKD (chronic kidney disease), stage IV (Acute) COPD (chronic obstructive pulmonary disease) (Acute) COPD (chronic obstructive pulmonary disease) (Acute) Diastolic congestive heart failure (Acute) Hypothyroidism (Acute) Insulin dependent type 2 diabetes mellitus (Acute) Iron deficiency anemia (Acute) Morbid obesity (Acute) Nonalcoholic liver disease, chronic (Acute) Surgical History (Updated 03/15/19 @ 05:34 by Rosita Madera MD) History of open reduction and internal fixation (ORIF) procedure (Acute) Family History (Updated 03/15/19 @ 05:34 by Rosita Madera MD) Other CAD (coronary artery disease) Hyperlipidemia Hypertension Denies family history of Cancer Social History (Updated 03/15/19 @ 05:34 by Rosita Madera MD) Smoking and tobacco status: former smoker Alcohol intake: never Household members: family Vitals/I&O/Wt Last Vital Signs Temp 98.4 F 03/15/19 02:07 Pulse 75 03/15/19 08:38 Resp 16 03/15/19 08:38 BP 168/86 03/15/19 07:23 Pulse Ox 98 03/15/19 08:38 Weight last 48 hrs Weight 102.058 kg Physical Exam Narrative: EXAM NARRATIVE: obese sob, sitting in chair, using 2 l nc o2 heent- nc/at, eomi neck- no jvp lungs crackles heart reg +SALINA abd soft, nt, nd +BS ext + edema neuro- a,a, o x 2, asterixis, weak Data Micro: Micro: Microbiology 03/15/19 02:58 Blood Culture - Pr eliminary Blood SPECIMEN [facility] SHERIE 03/15/19 02:57 Blood Culture - Pr eliminary Blood SPECIMEN [facility] SHERIE Other Data: Attestation for Other Data: I personally reviewed and interpreted the following: Other data: Abnormal lab results 03/15/19 03/15/19 03/15/19 Range/Units 01:30 01:30 01:30 WBC 11.4 H (4.0-10.0) 10^3/ uL RBC 3.98 L (4.1-5.3) 10^6/u L Hgb 11.5 L (11.7-16.6) g/dL Hct 35.3 L (42.0-52.0) % Neut # (Auto) 9.3 H (1.8-7.7) 10^3/u L PT 13.70 H (10.5-13.3) SECO NDS ABG pH (7.35-7.45) ABG pCO2 (35-45) mmHg ABG pO2 (80.0-100.0) mmH g ABG HCO3 (22-26) mmol/L ABG Base Excess (-2.0-2.0) mmol/ L Hematocrit (42-52) % Sodium 135 L (136-145) mmol/L Chloride 91 L (98-107) mmol/L Carbon Dioxide 21 L (22-29) mmol/L Anion Gap 28.1 H (5-19) BUN 149 H* (8-23) mg/dL Creatinine 5.9 H* (0.7-1.2) mg/dL GFR Calculation 9.7 L (90-130) mL/min Hemoglobin A1c (4.0-6.0) % Magnesium 2.7 H (1.7-2.3) mg/dL Ammonia (16-60) umol/L Troponin I 6 Hour (0-15) ng/L Troponin I Hi Sens Del (0-12) ng/L Troponin T Baselin e (0-15) ng/mL Troponin T 120 Min [place] (0-15) ng/mL Delta Troponin T (0-10) ABS# NT-Pro-B Natriuret Pep 1862 H (0-125) pg/mL Urine Protein (Negative) Urine Occult Blood (Negative) Urine RBC (0-2) /hpf Urine Bacteria (NONE) Coarse Granular Ca sts /lpf 03/15/19 03/15/19 03/15/19 Range/Units 01:30 01:30 02:58 WBC (4.0-10.0) 10^3/ uL RBC (4.1-5.3) 10^6/u L Hgb (11.7-16.6) g/dL Hct (42.0-52.0) % Neut # (Auto) (1.8-7.7) 10^3/u L PT (10.5-13.3) SECO NDS ABG pH (7.35-7.45) ABG pCO2 (35-45) mmHg ABG pO2 (80.0-100.0) mmH g ABG HCO3 (22-26) mmol/L ABG Base Excess (-2.0-2.0) mmol/ L Hematocrit (42-52) % Sodium (136-145) mmol/L Chloride (98-107) mmol/L Carbon Dioxide (22-29) mmol/L Anion Gap (5-19) BUN (8-23) mg/dL Creatinine (0.7-1.2) mg/dL GFR Calculation (90-130) mL/min Hemoglobin A1c 6.9 H (4.0-6.0) % Magnesium (1.7-2.3) mg/dL Ammonia 12 L (16-60) umol/L Troponin I 6 Hour (0-15) ng/L Troponin I Hi Sens Del (0-12) ng/L Troponin T Baselin e 245 H* (0-15) ng/mL Troponin T 120 Min [place] (0-15) ng/mL Delta Troponin T (0-10) ABS# NT-Pro-B Natriuret Pep (0-125) pg/mL Urine Protein (Negative) Urine Occult Blood (Negative) Urine RBC (0-2) /hpf Urine Bacteria (NONE) Coarse Granular Ca sts /lpf 03/15/19 03/15/19 03/15/19 Range/Units 03:20 04:00 06:40 WBC (4.0-10.0) 10^3/ uL RBC (4.1-5.3) 10^6/u L Hgb (11.7-16.6) g/dL Hct (42.0-52.0) % Neut # (Auto) (1.8-7.7) 10^3/u L PT (10.5-13.3) SECO NDS ABG pH 7.27 L (7.35-7.45) ABG pCO2 45.2 H (35-45) mmHg ABG pO2 105.0 H (80.0-100.0) mmH g ABG HCO3 20.8 L (22-26) mmol/L ABG Base Excess -5.9 L (-2.0-2.0) mmol/ L Hematocrit 31.6 L (42-52) % Sodium (136-145) mmol/L Chloride (98-107) mmol/L Carbon Dioxide (22-29) mmol/L Anion Gap (5-19) BUN (8-23) mg/dL Creatinine (0.7-1.2) mg/dL GFR Calculation (90-130) mL/min Hemoglobin A1c (4.0-6.0) % Magnesium (1.7-2.3) mg/dL Ammonia (16-60) umol/L Troponin I 6 Hour (0-15) ng/L Troponin I Hi Sens Del (0-12) ng/L Troponin T Baselin e (0-15) ng/mL Troponin T 120 Min [place] 214.50 H (0-15) ng/mL Delta Troponin T -30.50 L (0-10) ABS# NT-Pro-B Natriuret Pep (0-125) pg/mL Urine Protein 3+ H (Negative) Urine Occult Blood 2+ H (Negative) Urine RBC 0-4 H (0-2) /hpf Urine Bacteria 1+ H (NONE) Coarse Granular Ca sts 0-4 H /lpf 03/15/19 Range/Units 07:29 WBC (4.0-10.0) 10^3/ uL RBC (4.1-5.3) 10^6/u L Hgb (11.7-16.6) g/dL Hct (42.0-52.0) % Neut # (Auto) (1.8-7.7) 10^3/u L PT (10.5-13.3) SECO NDS ABG pH (7.35-7.45) ABG pCO2 (35-45) mmHg ABG pO2 (80.0-100.0) mmH g ABG HCO3 (22-26) mmol/L ABG Base Excess (-2.0-2.0) mmol/ L Hematocrit (42-52) % Sodium (136-145) mmol/L Chloride (98-107) mmol/L Carbon Dioxide (22-29) mmol/L Anion Gap (5-19) BUN (8-23) mg/dL Creatinine (0.7-1.2) mg/dL GFR Calculation (90-130) mL/min Hemoglobin A1c (4.0-6.0) % Magnesium (1.7-2.3) mg/dL Ammonia (16-60) umol/L Troponin I 6 Hour 218.3 H (0-15) ng/L Troponin I Hi Sens Del -26.7 L (0-12) ng/L Troponin T Baselin e (0-15) ng/mL Troponin T 120 Min [place] (0-15) ng/mL Delta Troponin T (0-10) ABS# NT-Pro-B Natriuret Pep (0-125) pg/mL Urine Protein (Negative) Urine Occult Blood (Negative) Urine RBC (0-2) /hpf Urine Bacteria (NONE) Coarse Granular Ca sts /lpf A&P Additional A&P Information 63 yr old man w/ CKD stage 4 from dm, htn. CRS, obesity. pt has been diuresed and progressed to CKD stage 5/ ESRD. Given his symptoms and underlying renal dysfunction- I feel the best idea would be to place a tunneled catheter and initiate HD. can then have cardiology and pulmonary optimize the patient for AVF placement. -once start hd- hold metolazone and lasix. -repeat stat chem 7 now. rx k medically till access is placed. htn- should improve w/ dialysis anemia eval dm control AMS- should improve off of diuretics and with dialysis. Dr. Reyse called to place a line discussed w/ pt, family, hospitalist- Dr. Gordon, and w/ Dr. Bui Consult Attestations Medical Necessity Statement: carter, hyperkalemia, chf, htn, sob Time Spent in Patient Care: Greater than 35 minutes (>than 50% of time spent in counselling and/or direct pt care on unit). Coding Level of Care Code Acute [employer] for Brynn Castro
[2019-03-15] MEDS: metoprolol succinate ER (24 HR) 100 mg Tablet 200 MG PO (12:17)
[2019-03-15] MEDS: metOLazone 5 MG Tablet PO (12:19)
[2019-03-15] MEDS: levothyroxine 88 mcg Tablet PO (12:21)
[2019-03-15] MEDS: ferrous sulfate EC 325 mg Tablet PO (12:22)
[2019-03-15] MEDS: amlodipine 10 mg Tablet PO (12:24)
[2019-03-15] MEDS: aspirin 81 mg EC Tablet PO (12:24)
[2019-03-15] MEDS: FUROsemide 40 mg Tablet 80 MG PO (12:59)
[2019-03-15] MEDS: heparin 5,000 unit/mL INJ 1 mL 5000 UNIT SUBCUT ×2 (13:01→20:51)
[2019-03-15] MEDS: sodium bicarbonate 150 MEQ in dextrose 5% 1,000 ML 100 MEQ IV (13:05)
[2019-03-15] MEDS: cloNIDine 0.1 mg Tablet 0.2 MG PO (13:10)
[2019-03-15 13:26] LABS: Alanine Aminotransferase 20 U/L (0-41); Albumin Level 3.9 g/dL (3.5-5.2); Alkaline Phosphatase 64 IU/L (40-130); Anion Gap 29.9 (5-19); Aspartate Amino Transferase 21 U/L (0-40); Calcium 8.5 mg/Dl (8.8-10.2); Carbon Dioxide 18 mmol/L (22-29); Chloride 87 mmol/L (98-107); Globulin 3.6 g/dL (1.3-4.6); Glomerular Filtration Rate 9.7 mL/min (90-130); Potassium 5.9 mmol/L (3.5-5.1); Sodium 129 mmol/L (136-145); Total Bilirubin 0.2 mg/dL (0.15-1.2); Total Protein 7.5 g/dL (6.6-8.7)
[2019-03-15 13:45] LABS: Blood Urea Nitrogen 149 mg/dL (8-23); Glucose 523 mg/dL (74-106)
[2019-03-15 13:56] LABS: Glucose Point of Care 427 mg/dL (70-110)
--- NOTE | 2019-03-15 14:17 | PC.NURSE ---
Dr Knight to room for possible placement of dialysis port
--- NOTE | 2019-03-15 14:39 | P.CONIM_ITS ---
Providers/Reason For Consult Consulting Physican/Specialty*: Dr. Reyes/cardiothoracic surgery Reason for Consult*: Request for temporary dialysis catheter for urgent hemodialysis Requesting Physcian: Dr. Fierro Attending Physician: Rosita Madera MD Primary Care Provider: Carla Ceballos MD History of Present Illness History of Present Illness Helio Reynoso is a 63 year old male with progressive renal dysfunction and diabetes mellitus for the past several years. He has been followed by Dr. Rapp for the past 2 years. He has re-presented with volume overload hyperkalemia to 5.9 and moderate acidosis. He has been seen by Dr. Fierro and expeditious hemodialysis have been recommended. He has requested we place a temporary dialysis catheter to allow for dialysis this afternoon. Mr. Reynoso has a long history of tobacco use for over 40 years, though has not smoked in over 2 years. He reports he has had lunch about 2 hours ago. Therefore, we will make preparations for expeditious temporary dialysis catheter placement utilizing local anesthesia only. I will tentatively plan to place this catheter in the right internal jugular vein. Review of Systems Eyes: Denies: change in vision ENMT: Denies: painful swallowing or hoarseness Card: Reports: edema, swelling of feet/ankles and shortness of breath when lying down; Denies: chest pain, palpitations or syncope Resp: Reports: shortness of breath and non-productive cough; Denies: coughing up blood GI: Denies: abdominal pain, nausea or vomiting Psych: Denies: anxiety or depression Meds/Allergies Home Medications and Allergies Home Medications Medication Instructions Recorded Confirmed Type amlodipine 10 mg PO DAILY 03/15/19 03/15/19 History aspirin 81 mg PO DAILY 03/15/19 03/15/19 History budesonide-formoterol [Symbicort] 2 puff INHALATION BID 03/15/19 03/15/19 History cholecalciferol (vitamin D3) 1,000 unit PO DAILY 03/15/19 03/15/19 History [Vitamin D3] clonidine HCl 0.2 mg PO TID 03/15/19 03/15/19 History ferrous sulfate 325 mg PO DAILY 03/15/19 03/15/19 History furosemide 80 mg PO BID 03/15/19 03/15/19 History insulin aspart U-100 [Novolog 18 unit SUBCUT BID 03/15/19 03/15/19 History Flexpen U-100 Insulin] insulin glargine [Lantus U-100 40 unit SUBCUT BID 03/15/19 03/15/19 History Insulin] levothyroxine 88 mcg PO DAILY 03/15/19 03/15/19 History metolazone 5 mg PO DAILY 03/15/19 03/15/19 History metoprolol succinate 200 mg PO DAILY 03/15/19 03/15/19 History multivitamin [Daily Multi-Vitamin] 1 tab PO DAILY 03/15/19 03/15/19 History omega-3 fatty acids-fish oil [Fish 1 cap PO DAILY 03/15/19 03/15/19 History Oil] Allergies Allergy/AdvReac Type Severity Reaction Status Date / Time No Known Allergies Allergy Verified 03/15/19 02:38 Current Medications Current Medications Generic Name Dose Route Start Last Admin Trade Name Freq PRN Reason Stop Dose Admin Amlodipine Besylate 10 mg 03/15/19 12:00 03/15/19 12:24 Norvasc PO 10 mg DAILY LENNIE Administration Aspirin 81 mg 03/15/19 12:00 03/15/19 12:24 Aspirin Ec PO 81 mg DAILY LENNIE Administration Clonidine HCl 0.2 mg 03/15/19 12:00 03/15/19 13:10 Catapres PO 0.2 mg TID LENNIE Administration Ferrous Sulfate 325 mg 03/15/19 12:00 03/15/19 12:22 Ferrous Sulfate PO 325 mg DAILY LENNIE Administration Furosemide 80 mg 03/15/19 12:00 03/15/19 12:59 Lasix PO 80 mg BID LENNIE Administration Heparin Sodium (Beef Lung) 5,000 unit 03/15/19 12:00 03/15/19 13:01 Heparin SUBCUT 5,000 unit Q8H LENNIE Administration Sodium Bicarbonate 150 meq/ 1,150 mls @ 100 mls/hr 03/15/19 09:53 03/15/19 13:05 Dextrose IV 03/15/19 21:22 100 mls/hr .[id number] ONE Administration Insulin Aspart 0 unit 03/15/19 08:00 03/15/19 12:48 Novolog SUBCUT Not Given TIDWM LENNIE Protocol Insulin Aspart 20 unit 03/15/19 12:00 03/15/19 12:26 Novolog SUBCUT 20 unit BID LENNIE Administration Insulin Detemir 30 unit 03/15/19 12:00 03/15/19 12:41 Levemir SUBCUT 30 unit BID LENNIE Administration Levothyroxine Sodium 88 mcg 03/15/19 12:00 03/15/19 12:21 Synthroid PO 88 mcg DAILY LENNIE Administration Metolazone 5 mg 03/15/19 12:00 03/15/19 12:19 Zaroxolyn PO 5 mg DAILY LENNIE Administration Metoprolol Succinate 200 mg 03/15/19 12:00 03/15/19 12:17 Toprol Xl PO 200 mg DAILY LENNIE Administration PFSH Acute PFSH: Statuses (acute, chronic, etc) shown below reflect problem list status as previously entered and may not be historically accurate Medical History (Updated 03/15/19 @ 06:19 by Rosita Madera MD) Blood transfusion abn reaction or complication, no procedure mishap (Acute) Cataract disorder type 14 (Acute) CKD (chronic kidney disease), stage IV (Acute) COPD (chronic obstructive pulmonary disease) (Acute) COPD (chronic obstructive pulmonary disease) (Acute) Diastolic congestive heart failure (Acute) Hypothyroidism (Acute) Insulin dependent type 2 diabetes mellitus (Acute) Iron deficiency anemia (Acute) Morbid obesity (Acute) Nonalcoholic liver disease, chronic (Acute) Surgical History (Updated 03/15/19 @ 05:34 by Rosita Madera MD) History of open reduction and internal fixation (ORIF) procedure (Acute) Family History (Updated 03/15/19 @ 05:34 by Rosita Madera MD) Other CAD (coronary artery disease) Hyperlipidemia Hypertension Denies family history of Cancer Social History (Updated 03/15/19 @ 05:34 by Rosita Madera MD) Smoking and tobacco status: former smoker Alcohol intake: never Substance/Drug Use: never Household members: family Vitals/I&O/Wt Last Vital Signs Temp 98.4 F 03/15/19 02:07 Pulse 75 03/15/19 08:38 Resp 16 03/15/19 08:38 BP 173/71 03/15/19 13:10 Pulse Ox 98 03/15/19 08:38 Weight last 48 hrs Weight 225 lb Physical Exam HENMT: COMMON NORMALS: normocephalic HEAD & SCALP: normocephalic Chest: COMMONS NORMALS: inspection of chest normal and palpation of chest normal Resp: EFFORT & INSPECTION: Yes symmetric chest movement, Yes tachypneic, No decreased respiratory effort and Yes uses accessory muscles AUSCULTATION: crackles, rales and wheezes Cardio: COMMON NORMALS: S1 normal heart sound and S2 normal heart sound JUGULAR VENOUS DISTENTION: JVD PALPATION: normal PMI HEART SOUNDS: S1 normal and S2 normal BRUITS: no carotid bruits PERIPHERAL PULSES: radial pulses present and femoral pulses present Extremity: GENERAL: Yes edema Data Micro: Micro: Microbiology 03/15/19 02:58 Blood Culture - Pr eliminary Blood SPECIMEN [facility]LE SHERIE 03/15/19 02:57 Blood Culture - Pr eliminary Blood SPECIMEN [facility] A&P Assessment and plan (1) Acute kidney injury superimposed on chronic kidney disease: 63-year-old gentleman with progressive renal dysfunction now requiring expeditious hemodialysis as determined by our nephrology colleagues. They have requested to place a temporary dialysis catheter to allow for dialysis this afternoon. He has had lunch about 2 hours ago. Therefore I will plan for temporary dialysis catheter in the neck under local anesthesia to be performed in the emergency department so that he may be transported directly to our dialysis unit for treatment this afternoon. Rationale for this was carefully discussed with Mr. Reynoso and his who was present during the interview. Risk of bleeding, major infection, pneumothorax requiring chest tube, inability to place a catheter, major vascular injury requiring major intrathoracic procedure for repair attempt were all frankly discussed. He stated understanding and wishes to proceed. Consent is being prepared for his review and signature. Status: Acute Code(s): N17.9 - Acute kidney failure, unspecified; N18.9 - Chronic kidney disease, unspecified Consult Attestations Medical Necessity Statement: Acute on chronic renal failure necessitating expeditious hemodialysis requiring dialysis catheter placement Time Spent in Patient Care: Greater than 35 minutes Coding Level of Care Code [facility] Diagnoses Acute kidney injury superimposed on chronic kidney disease N17.9; N18.9
--- NOTE | 2019-03-15 15:02 | PC.NURSE ---
Pt moved to room [address] Reyes to room with surgery staff to perform dialysis shunt placement
--- NOTE | 2019-03-15 15:32 | XRR_ITS ---
PROCEDURE INFORMATION: Exam: XR Chest, 1 View Exam date and time: 03/15/2019 3:39 PM Age: 63 years old Clinical indication: Other non-vascualr catheter or device placement; Dialysis; Additional info: Confirm dialysis placement TECHNIQUE: Imaging protocol: XR of the chest Views: 1 view. COMPARISON: CR XR chest 1V portable [id number] 03/15/2019 2:56 AM FINDINGS: Lungs: Unremarkable. No consolidation. Pleural space: Unremarkable. No pleural effusion. No pneumothorax. Heart/Mediastinum: Unremarkable. No cardiomegaly. Bones/joints: Unremarkable. A catheter central line is in place on the right side extending into the SVC. XR/XR chest 1V portable [id number] IMPRESSION: No acute findings. Right central line extends into the SVC
--- NOTE | 2019-03-15 17:42 | PM.OP ---
Operative Report Date of procedure: 03/15/19 Pre-op Diagnosis: Acute on chronic renal failure Post-op diagnosis: same Procedure Done: Right subclavian temporary dialysis catheter placement Implants: March subclavian dialysis catheter Pathology: none sent Surgeon: Horace Reyes Anesthesia: Local (10 cc) Estimated blood loss (mL): 30 Complications: None: Post procedure chest x-ray reveals appropriate catheter placement without evidence for pneumothorax, effusion, or infiltrate Condition: stable Disposition: floor Brief History: Mr. Reynoso is a 63-year-old gentleman with chronic renal insufficiency followed by Dr. Rapp. He has now developed episodes of acute on chronic renal failure. At this presentation it is felt by nephrology that he would benefit from acute dialysis due to modest acidosis and hyperkalemia up to 5.9. A temporary dialysis catheter placement was requested for acute hemodialysis. Rationale was carefully discussed with Mr. Reynoso and his . Appropriate consents have been provided for review and signature. Details and risks of the surgery were carefully discussed. Procedure: Axillary roll was placed and Mr. Reynoso was positioned in reverse Trendelenburg position as he is upper chest and neck were sterilely prepped and draped bilaterally. Handheld ultrasonography was performed initially at the base of the neck though it was somewhat difficult to appropriately isolate the right internal jugular vein. Therefore, elected to proceed with subclavian placement. 1% lidocaine was infiltrated in the right subclavicular region and utilizing modified shoulder technique the right subclavian vein was engaged and guidewire was placed. #11 scalpel blade was used to incise the skin. A series of progressive larger dilators were utilized to dilate the tract over the guidewire. Next, the dual-lumen catheter was placed over the guidewire and advanced into position without difficulty or resistance. Guidewire was removed intact. Each lumen of the catheter easily aspirated of blood and was flushed with heparin solution. Securing caps were placed. Catheter was secured to the skin with 2-0 silk suture. Sterile dressing was applied. There are equal breath sounds bilaterally at the completion the procedure with stable vital signs. Post procedure chest x-ray revealed no evidence for pneumothorax and appropriate catheter placement. I counseled with his at the completion of the procedure.
--- NOTE | 2019-03-15 19:23 | PM.PN ---
Subjective Subjective: Interval history: This morning, patient's seen in the ICU, sitting up in bed, states that he has no complaints this morning, denies chest pain, palpitations, lightheadedness, dizziness, nausea, vomiting, does have bilateral tremors, complains of dry skin, no falls, no injuries Patient is not sure why he is in the emergency room, states that he was brought in by family members, because he said he passed out States that he has a history of type 2 diabetes mellitus, is on glargine 40 units twice daily, NovoLog 18 units twice daily, states that his blood sugars are really well controlled, blood sugars are anywhere between the 100s to 200s. no blood sugar greater than 400, no blood sugar less than 100 patient states that his hemoglobin A1c is 6.7. States that the last thing he remembers, he had dinner, he gave himself 40 units of Lantus, he sat in his chair to watch TV, not for the last thing he can remember. Vitals/I&O/Wt Last Vital Signs Temp 97.8 F 03/15/19 18:33 Pulse 81 03/15/19 18:33 Resp 20 H 03/15/19 18:33 BP 131/71 03/15/19 18:33 Pulse Ox 99 03/15/19 18:33 Weight last 48 hrs Weight 102.058 kg Physical Exam Const: COMMON NORMALS: no apparent distress and oriented x3 HENMT: COMMON NORMALS: normocephalic HEAD & SCALP: normocephalic Neck/C-Spine: COMMON NORMALS: no JVD Resp: COMMON NORMALS: normal respiratory effort, no retractions, no use of accessory muscles and clear to auscultation bilaterally AUSCULTATION: clear to auscultation bilaterally Cardio: COMMON NORMALS: no JVD, regular rate, regular rhythm, S1 normal heart sound and S2 normal heart sound RATE: regular rate RHYTHM: regular rhythm HEART SOUNDS: S1 normal and S2 normal GI: COMMON NORMALS: normal to inspection, nondistended, normoactive bowel sounds, soft to palpation, non-tender, no hepatosplenomegaly, no masses and no bruits PALPATION: Yes soft and Yes no hepatosplenomegaly Extremity: COMMON NORMALS: normal capillary refill, no clubbing, cyanosis or edema, no calf tenderness and no pedal edema Neuro: COMMON NORMALS: oriented x3 Psych: COMMON NORMALS: mental status grossly normal Data : 03/15/19 01:30 03/15/19 12:45 Micro: Microbiology 03/15/19 02:58 Blood Culture - Preliminary Blood SPECIMEN COLLECTED 03/15/19 02:57 Blood Culture - Preliminary Blood SPECIMEN COLLECTED A&P Assessment and plan (1) Hypertensive urgency: -Continue home medications Status: Acute Code(s): I16.0 - Hypertensive urgency (2) Hypoglycemia: -Likely secondary to CKD stage V, decrease elimination of insulin -Continue Levemir 30 units twice daily -Lantus 10 units twice daily -Monitor blood sugars closely Status: Acute Code(s): E16.2 - Hypoglycemia, unspecified (3) Acute kidney injury superimposed on chronic kidney disease: -Possibly patient's passing out spells and altered mental status could be uremic symptoms given his BUN of 149, creatinine 5.9 -There were plans on placing a dialysis fistula, but this was delayed -I have consulted nephrology, who recommended dialysis -Dr. Reyes from cardiothoracic surgery has been consulted, and has graciously placed a temporary dialysis catheter for acute hemodialysis Status: Acute Code(s): N17.9 - Acute kidney failure, unspecified; N18.9 - Chronic kidney disease, unspecified (4) COPD (chronic obstructive pulmonary disease): Stable Status: Acute Code(s): J44.9 - Chronic obstructive pulmonary disease, unspecified (5) Altered mental status: Multifactorial, likely listed related to hypoglycemia and uremic symptoms Status: Acute Code(s): R41.82 - Altered mental status, unspecified (6) Diastolic congestive heart failure: Weight is down roughly 10 pounds since last admission Does not look fluid overloaded Status: Acute Code(s): I50.30 - Unspecified diastolic (congestive) heart failure Attestations Medical Necessity Statement*: Patient requires hospitalization, greater than 2 minutes, altered mental status secondary to uremia and hypoglycemia, requiring urgent dialysis Coding Level of Care Code Acute Big Data Admin for Chg Fwd Diagnoses Hypertensive urgency I16.0 Hypoglycemia E16.2 Acute kidney injury superimposed on chronic kidney disease N17.9; N18.9 COPD (chronic obstructive pulmonary disease) J44.9 Altered mental status R41.82 Diastolic congestive heart failure I50.30
[2019-03-15 21:03] LABS: Hepatitis C Virus Antibody Non-Reactive (Nonreactive)
[2019-03-15 21:11] LABS: Hepatitis B Surface AB. 3.5 (0-8.5); Hepatitis B Surface Antigen. Non-Reactive (Nonreactive)
[2019-03-15 21:19] LABS: Glucose Point of Care 86 mg/dL (70-110)
[2019-03-15 22:14] LABS: Glucose Point of Care 369 mg/dL (70-110)
[2019-03-16] VITALS (15 sets, daily range): BP systolic 118–168; BP diastolic 62–78; PULSE 70–107; RESP 18–24; TEMP 36.4–37.1; O2SAT 92–98
--- NOTE | 2019-03-16 | SCC_ITS ---
Procedure Done: Tunneled left IJ dual-lumen dialysis catheter placement Removal of right subclavian temporary dialysis catheter 96.1 seconds of fluoroscopic guidance, for a cumulative dose of 15.85 mGy, was provided to Dr. Reyes by the radiology department. C-arm images of the chest were saved for the patient's permanent record. [facility]
[2019-03-16] MEDS: heparin 5,000 unit/mL INJ 1 mL 5000 UNIT SUBCUT ×2 (04:24→21:55)
[2019-03-16 05:34] LABS: Hematocrit 28.5 % (42.0-52.0); Hemoglobin 9.4 g/dL (11.7-16.6); Lymphocytes # 1.3 10^3/uL (0.8-4.8); Lymphocytes % 9.5 %; Mean Corpuscular Hemoglobin 29.6 pg (28.0-34.0); Mean Corpuscular Volume 89.6 fL (80-94); Mean Platelet Volume 9.2 fL (7.4-10.4); Monocytes # 0.8 10^3/uL (0.2-0.9); Monocytes % 6.3 %; Neutrophils # 11.1 10^3/uL (1.8-7.7); Neutrophils % 83.7 %; Nucleated Red Blood Cells % 0 %; Platelet Count 273 10^3/cmm (130-400); Red Blood Count 3.18 10^6/uL (4.1-5.3); Red Cell Distribution Width 13.8 % (12.1-15.1); White Blood Count 13.2 10^3/uL (4.0-10.0)
[2019-03-16 06:00] LABS: Alanine Aminotransferase 18 U/L (0-41); Albumin Level 3.8 g/dL (3.5-5.2); Alkaline Phosphatase 56 IU/L (40-130); Anion Gap 22.5 (5-19); Aspartate Amino Transferase 24 U/L (0-40); Calcium 8.5 mg/Dl (8.8-10.2); Carbon Dioxide 26 mmol/L (22-29); Chloride 93 mmol/L (98-107); Globulin 2.6 g/dL (1.3-4.6); Glomerular Filtration Rate 12.1 mL/min (90-130); Glucose 111 mg/dL (74-106); Magnesium 2.3 mg/dL (1.7-2.3); Phosphorus 7.2 mg/dL (2.5-4.5); Potassium 4.5 mmol/L (3.5-5.1); Sodium 137 mmol/L (136-145); Total Bilirubin 0.2 mg/dL (0.15-1.2); Total Protein 6.4 g/dL (6.6-8.7)
[2019-03-16 06:23] LABS: Blood Urea Nitrogen 109 mg/dL (8-23)
[2019-03-16 06:29] LABS: Influenza A by IFA Negative (Negative); Influenza B by IFA Negative (Negative)
--- NOTE | 2019-03-16 09:12 | PC.RESP ---
Pt refuses to wear omc Bipap, wears his own at home, but cannot sleep on ours.
[2019-03-16] MEDS: amlodipine 10 mg Tablet 5 MG PO (10:58)
[2019-03-16] MEDS: ferrous sulfate EC 325 mg Tablet PO (10:59)
[2019-03-16] MEDS: cloNIDine 0.1 mg Tablet PO ×2 (10:59→21:52)
[2019-03-16] MEDS: aspirin 81 mg EC Tablet PO (11:00)
[2019-03-16] MEDS: levothyroxine 88 mcg Tablet PO (11:00)
[2019-03-16] MEDS: metoprolol succinate ER (24 HR) 100 mg Tablet 200 MG PO (11:00)
[2019-03-16 11:09] LABS: Glucose Point of Care 191 mg/dL (70-110)
[2019-03-16] MEDS: multivitamin therapeutic Tablet 1 TAB PO (11:10)
[2019-03-16] MEDS: cholecalciferol (vitamin D3) 1,000 unit Tablet 1000 UNIT PO (11:10)
[2019-03-16] MEDS: metOLazone 5 MG Tablet PO (11:10)
--- NOTE | 2019-03-16 11:11 | PM.PN ---
Subjective Subjective: Interval history: Patient has no complaints. He is breathing a bit easier. Apparently, they were having some difficulties with flow from the temporary dialysis catheter during plan dialysis today, though it did seem to work reasonably well last evening. Vitals/I&O/Wt Last Vital Signs Temp 97.5 F L 03/16/19 09:00 Pulse 88 03/16/19 09:10 Resp 22 H 03/16/19 09:10 BP 168/71 03/16/19 10:59 Pulse Ox 92 03/16/19 09:10 03/15/19 03/16/19 03/16/19 22:59 06:59 14:59 Output Total 150 / 150 250 / 400 Balance -150 / -150 -250 / -400 Weight last 48 hrs Weight 225 lb Physical Exam Chest: COMMONS NORMALS: inspection of chest normal (Dialysis catheter insertion site appears to be clean and dry. No apparent difficulties visual.) Data : 03/16/19 05:20 03/16/19 05:20 Micro: Microbiology 03/15/19 02:58 Blood Culture - Preliminary Blood NEGATIVE TO DATE 03/15/19 02:57 Blood Culture - Preliminary Blood NEGATIVE TO DATE A&P Assessment and plan (1) Acute kidney injury superimposed on chronic kidney disease: Acute on chronic renal failure requiring urgent hemodialysis yesterday evening. Temporary dialysis catheter appears to be having some difficulties with flow today as reported by nursing service I will plan to exchange for a tunneled dialysis catheter later today. This will be a catheter of larger dimensions, so hopefully will provide better flow. Status: Acute Code(s): N17.9 - Acute kidney failure, unspecified; N18.9 - Chronic kidney disease, unspecified Attestations Medical Necessity Statement*: Acute on chronic renal failure requiring hemodialysis Time Spent in Patient Care: less than 15 minutes Coding Level of Care Code Acute Psychologist Clinical [facility] Diagnoses Acute kidney injury superimposed on chronic kidney disease N17.9; N18.9
--- NOTE | 2019-03-16 11:51 | PC.CHAP ---
Pastoral Care Encounter/Spiritual Assessment Type of Contact [] Declined prison officer visit [] Patient/Family/Request visit [] Outpatient visit [] Follow-up visit [] Physician referral [] Code/Alert [x] Routine visit [] Staff referral [] Actively dying [] Patient sleeping [] Family support [] [] Out of room [] Palliative care [] [] Receiving care in room [] Pre-surgical visit [] Trauma [] Long length of stay [] ICU visit [] Other: Relational/Emotional Strength [x] Patient feels connected with others/family/visitors/staff [] Distress [] Loneliness/isolation [] Abandonment Spirituality of Patient [] Person of Bhavana [] Attends Tenriism of their Bhavana [] Believes in Prayer [] Reads Bible or Mormon materials [] There are Spiritual issues to be addressed Melter Supervisor Interventions [x] Prayer [x] Active listening [x] Non-anxious presence x[] Spiritual/emotional support [] Crisis/trauma care [] Spiritual counseling [] Bereavement support [] Provided bereavement packet [] Provided Bible/devotional materials [] Provided toy/stuffed animal, coloring book to patient or family member [x] Completed spiritual assessment [] Provided Communion [] Anointing/[place] [] Salvation [] Other: Impact on Illness or Injury [] Angry [] Fearful [] Anxious [] Often cries [] Exhaustion [] Unable to work [] Unable to attend rastafarian [] Unable to walk/stand [] Unable to read [] Unable to drive [] Unable to eat/drink [] Unable to sleep [] Unable to be with family [] Other: Summary patient not interested in conversation at this time only prayer Time spent with patient 5 min
--- NOTE | 2019-03-16 14:51 | P.PN_ITS ---
Subjective Subjective: Interval history: This morning patient is in is in the dialysis suite, has no significant complaints, no chest pain, no shortness of breath, no lightheadedness, no dizziness, no current episodes of confusion, no headaches, mild tremor persists According to the dialysis nurse, catheter that was placed yesterday has had poor flow, 1 hour of dialysis took 2 hours, I spoke to Dr. Reyes, who was kind enough to take the patient to the OR to place a permanent pigtail catheter later on this evening Vitals/I&O/Wt Last Vital Signs Temp 98.8 F 03/16/19 11:34 Pulse 81 03/16/19 11:34 Resp 18 03/16/19 11:34 BP 159/68 03/16/19 11:34 Pulse Ox 92 03/16/19 11:34 03/15/19 03/16/19 03/16/19 22:59 06:59 14:59 Intake Total 120 / 120 Output Total 150 / 150 250 / 400 100 / 100 Balance -150 / -150 -250 / -400 Weight last 48 hrs Weight 102.058 kg Physical Exam Narrative: EXAM NARRATIVE: Right catheter in place Const: COMMON NORMALS: no apparent distress and oriented x3 HENMT: COMMON NORMALS: normocephalic HEAD & SCALP: normocephalic Neck/C-Spine: COMMON NORMALS: no JVD Resp: COMMON NORMALS: normal respiratory effort, no retractions, no use of accessory muscles and clear to auscultation bilaterally AUSCULTATION: clear to auscultation bilaterally Cardio: COMMON NORMALS: no JVD, regular rate, regular rhythm, S1 normal heart sound and S2 normal heart sound RATE: regular rate RHYTHM: regular rhythm HEART SOUNDS: S1 normal and S2 normal GI: COMMON NORMALS: normal to inspection, nondistended, normoactive bowel sounds, soft to palpation, non-tender, no hepatosplenomegaly, no masses and no bruits PALPATION: Yes soft and Yes no hepatosplenomegaly Extremity: COMMON NORMALS: normal capillary refill, no clubbing, cyanosis or edema, no calf tenderness and no pedal edema Neuro: COMMON NORMALS: oriented x3 Psych: COMMON NORMALS: mental status grossly normal Data : 03/16/19 05:20 03/16/19 05:20 Micro: Microbiology 03/15/19 02:58 Blood Culture - Preliminary Blood NEGATIVE TO DATE 03/15/19 02:57 Blood Culture - Preliminary Blood NEGATIVE TO DATE A&P Assessment and plan (1) Hypertensive urgency: -Continue home medications Status: Acute Code(s): I16.0 - Hypertensive urgency (2) Hypoglycemia: -Likely secondary to CKD stage V, decrease elimination of insulin -Continue Levemir 30 units twice daily -Lantus 20 units twice daily -Monitor blood sugars closely Status: Acute Code(s): E16.2 - Hypoglycemia, unspecified (3) Acute kidney injury superimposed on chronic kidney disease: -Possibly patient's passing out spells and altered mental status could be uremic symptoms given his BUN of 109, creatinine 4.9 -There were plans on placing a dialysis fistula, but this was delayed -I have consulted nephrology, possible dialysis tomorrow -Dr. Reyes from cardiothoracic surgery has been consulted, and has graciously agreed to place pigtail catheter later on tonight Status: Acute Code(s): N17.9 - Acute kidney failure, unspecified; N18.9 - Chronic kidney disease, unspecified (4) COPD (chronic obstructive pulmonary disease): Stable Status: Acute Code(s): J44.9 - Chronic obstructive pulmonary disease, unspecified (5) Altered mental status: Multifactorial, likely listed related to hypoglycemia and uremic symptoms Status: Acute Code(s): R41.82 - Altered mental status, unspecified (6) Diastolic congestive heart failure: Weight is down roughly 10 pounds since last admission Does not look fluid overloaded Status: Acute Code(s): I50.30 - Unspecified diastolic (congestive) heart failure Additional A&P Information Hypothyroidism: Continue thyroxine 88 mcg Oxygen dependent COPD: 4 L [id number], no active exacerbation no active wheezing High troponins are most likely secondary to fluid overload due to renal failure His EF was preserved without diastolic dysfunction Patient is DNR/DNI Attestations Medical Necessity Statement*: Patient requires continued hospitalization, for uremia, requiring dialysis Coding Level of Care Code Acute Supervisor [employer] for Chg Fwd Diagnoses Hypertensive urgency I16.0 Hypoglycemia E16.2 Acute kidney injury superimposed on chronic kidney disease N17.9; N18.9 COPD (chronic obstructive pulmonary disease) J44.9 Altered mental status R41.82 Diastolic congestive heart failure I50.30
--- NOTE | 2019-03-16 15:31 | ANES.PREANES ---
Pre-Anesthetic Assessment Pre-Anesthetic Assessment: Height/Weight: Height 1.7 m Weight 102.058 kg Temp Pulse Resp BP Pulse Ox 97.6 F 75 20 H 135/78 98 03/16/19 15:22 03/16/19 15:22 03/16/19 15:22 03/16/19 15:22 03/16/19 15:22 Preop Diagnosis: Acute on chronic renal failure Proposed Procedure: Operation Date: 03/16/19 16:00 Proposed Procedures p Dialysis Catheter Placement(Not Applicable) - Horace Reyes MD Last intake: Intake Last Liquid Date 03/16/19 Last Liquid Time 10:00 Last Solid Date 03/16/19 Last Solid Time 10:00 Social: Pack years: 80 Comment: quit 2 y ago Exam: Pre-Anes Outpt Exam: alert, oriented x 3, clear to auscultation bilaterally and regular rate & rhythm Additional Exam Findings (including area of procedure): date 03/16/19 Place [place] Airway: Submandibular: Other Cervical ROM: Other MP: 3 Dentition: Full Pulmonary: Pulmonary: COPD Comments: breathing feels good Home 02 @ 4 lpm x 4 years CV/HEM: CV/HEM: CHF : : Chronic renal failure Metabolic: Metabolic: DM (rx'd x 9 years, normally 100-200) Comments: Thyroid x 9y Neuropsych: Comments: Altered mental status on admission, oriented x3 today Meds/Allergies Current Medications: Current Medications Generic Name Dose Route Start Last Admin Trade Name Freq PRN Reason Stop Dose Admin Amlodipine Besylat e 5 mg 03/16/19 09:00 03/16/19 10:58 Norvasc PO 5 mg DAILY LENNIE Administration Aspirin 81 mg 03/15/19 12:00 03/16/19 11:00 Aspirin Ec PO 81 mg DAILY LENNIE Administration Clonidine HCl 0.1 mg 03/16/19 09:00 03/16/19 10:59 Catapres PO 0.1 mg TID LENNIE Administration Ferrous Sulfate 325 mg 03/15/19 12:00 03/16/19 10:59 Ferrous Sulfate PO 325 mg DAILY LENNIE Administration Heparin Sodium (Be ef Lung) 5,000 unit 03/15/19 12:00 03/16/19 11:32 Heparin SUBCUT Not Given Q8H LENNIE Insulin Aspart 0 unit 03/15/19 08:00 03/16/19 11:32 Novolog SUBCUT Not Given TIDWM [facility] Protocol Insulin Aspart 20 unit 03/15/19 12:00 03/16/19 11:13 Novolog SUBCUT Not Given BID LENNIE Insulin Detemir 30 unit 03/15/19 12:00 03/16/19 11:14 Levemir SUBCUT Not Given BID LENNIE Levothyroxine Sodi um 88 mcg 03/15/19 12:00 03/16/19 11:00 Synthroid PO 88 mcg DAILY LENNIE Administration Metolazone 5 mg 03/15/19 12:00 03/16/19 11:10 Zaroxolyn PO 5 mg DAILY LENNIE Administration Metoprolol Succina te 200 mg 03/15/19 12:00 03/16/19 11:00 Toprol Xl PO 200 mg DAILY LENNIE Administration Multivitamins Ther apeutic 1 tab 03/16/19 12:00 03/16/19 11:10 Multivitamin Tab PO 1 tab DAILY LENNIE Administration Fluticasone/Salmet gwendolyn 1 puff 03/15/19 12:00 03/16/19 09:08 Advair Diskus 50 0-50 INHALATION 1 puff BID LENNIE Administration Vitamin D 1,000 unit 03/16/19 12:00 03/16/19 11:10 Vitamin D3 PO 1,000 unit DAILY LENNIE Administration PFSH Anesthesia PFSH: Family History (Updated 03/15/19 @ 05:34 by Rosita Madera MD) Other CAD (coronary artery disease) Hyperlipidemia Hypertension Denies family history of Cancer Social History (Updated 03/15/19 @ 05:34 by Rosita Madera MD) Smoking and tobacco status: former smoker Alcohol intake: never Substance/Drug Use: never Household members: family Data Anesthesia CBC & Chem 7: 03/16/19 05:20 03/16/19 05:20 Other Labs: Laboratory Results - last 48 hr 03/15/19 03/15/19 03/15/19 01:30 01:30 01:30 WBC 11.4 H RBC 3.98 L Hgb 11.5 L Hct 35.3 L MCV 88.7 MCH 28.9 MCHC 32.6 RDW 13.7 Plt Count 364 MPV 9.5 Neut % (Auto) 81.7 Lymph % (Auto) 12.9 Churchill % (Auto) 4.8 Eos % (Auto) 0.1 Baso % (Auto) 0.3 Neut # (Auto) 9.3 H Lymph # (Auto) 1.5 Churchill # (Auto) 0.6 Eos # (Auto) 0.0 Baso # (Auto) 0.0 Nucleated RBC % (auto) 0 Nucleated RBCs # 0.0 PT 13.70 H INR 1.02 Specimen Type Sample Site ABG pH ABG pCO2 ABG pO2 ABG HCO3 ABG Base Excess Ted Test Hematocrit O2 Delivery Device O2 Liters/Min Hammer Mill Operator ID Sodium 135 L Potassium 5.1 Chloride 91 L Carbon Dioxide 21 L Anion Gap 28.1 H BUN 149 H* Creatinine 5.9 H* GFR Calculation 9.7 L Glucose 104 POC Glucose Estimat Average Glucose Hemoglobin A1c Lactic Acid Calcium 9.1 Phosphorus Magnesium 2.7 H Total Bilirubin 0.2 AST 26 ALT 23 Alkaline Phosphatase 69 Ammonia Troponin I 6 Hour Troponin I Hi Sens Del Troponin T Baseline Troponin T 120 Minute Delta Troponin T NT-Pro-B Natriuret Pep 1862 H Total Protein 8.0 Albumin 4.2 Globulin 3.8 Lipase 57 Urine Color Urine Appearance Urine pH Ur Specific Agency Urine Protein Urine Glucose (UA) Urine Ketones Urine Occult Blood Urine Nitrate Urine Bilirubin Urine Urobilinogen Ur Leukocyte Esterase Urine RBC Urine WBC Ur Squamous Epith Cells Amorphous Sediment Urine Bacteria Coarse Granular Casts Urine Opiates Screen Ur Barbiturates Screen Ur Phencyclidine Scrn Ur Amphetamines Screen U Benzodiazepines Scrn Urine Cocaine Screen U Marijuana (THC) Screen Ethyl Alcohol < 10 Hep Bs Antigen Hep Bs Antibody Hep B Core Total Ab Hepatitis C Antibody Influenza Type A Ag POC Influenza B Ag 03/15/19 03/15/19 03/15/19 01:30 01:30 01:30 WBC RBC Hgb Hct MCV MCH MCHC RDW Plt Count MPV Neut % (Auto) Lymph % (Auto) [place] % (Auto) Eos % (Auto) Baso % (Auto) Neut # (Auto) Lymph # (Auto) [place] # (Auto) Eos # (Auto) Baso # (Auto) Nucleated RBC % (auto) Nucleated RBCs # PT INR Specimen Type Sample Site ABG pH ABG pCO2 ABG pO2 ABG HCO3 ABG Base Excess Ted Test Hematocrit O2 Delivery Device O2 Liters/Min Hammer [employer] Operator ID Sodium Potassium Chloride Carbon Dioxide Anion Gap BUN Creatinine GFR Calculation Glucose POC Glucose Estimat Average Glucose 151 Hemoglobin A1c 6.9 H Lactic Acid Calcium Phosphorus Magnesium Total Bilirubin AST ALT Alkaline Phosphatase Ammonia Troponin I 6 Hour Troponin I Hi Sens Del Troponin T Baseline 245 H* Troponin T 120 Minute Delta Troponin T NT-Pro-B Natriuret Pep Total Protein Albumin Globulin Lipase Urine Color Urine Appearance Urine pH Ur Specific Agency Urine Protein Urine Glucose (UA) Urine Ketones Urine Occult Blood Urine Nitrate Urine Bilirubin Urine Urobilinogen Ur Leukocyte Esterase Urine RBC Urine WBC Ur Squamous Epith Cells Amorphous Sediment Urine Bacteria Coarse Granular Casts Urine Opiates Screen Ur Barbiturates Screen Ur Phencyclidine Scrn Ur Amphetamines Screen U Benzodiazepines Scrn Urine Cocaine Screen U Marijuana (THC) Screen Ethyl Alcohol Hep Bs Antigen Non-reactive Hep Bs Antibody 3.5 Hep B Core Total Ab Non-reactive Hepatitis C Antibody Influenza Type A Ag POC Influenza B Ag 03/15/19 03/15/19 03/15/19 01:30 02:58 02:58 WBC RBC Hgb Hct MCV MCH MCHC RDW Plt Count MPV Neut % (Auto) Lymph % (Auto) [place] % (Auto) Eos % (Auto) Baso % (Auto) Neut # (Auto) Lymph # (Auto) [place] # (Auto) Eos # (Auto) Baso # (Auto) Nucleated RBC % (auto) Nucleated RBCs # PT INR Specimen Type Sample Site ABG pH ABG pCO2 ABG pO2 ABG HCO3 ABG Base Excess Ted Test Hematocrit O2 Delivery Device O2 Liters/Min Hammer [employer] Operator ID Sodium Potassium Chloride Carbon Dioxide Anion Gap BUN Creatinine GFR Calculation Glucose POC Glucose Estimat Average Glucose Hemoglobin A1c Lactic Acid 0.9 Calcium Phosphorus Magnesium Total Bilirubin AST ALT Alkaline Phosphatase Ammonia 12 L Troponin I 6 Hour Troponin I Hi Sens Del Troponin T Baseline Troponin T 120 Minute Delta Troponin T NT-Pro-B Natriuret Pep Total Protein Albumin Globulin Lipase Urine Color Urine Appearance Urine pH Ur Specific Agency Urine Protein Urine Glucose (UA) Urine Ketones Urine Occult Blood Urine Nitrate Urine Bilirubin Urine Urobilinogen Ur Leukocyte Esterase Urine RBC Urine WBC Ur Squamous Epith Cells Amorphous Sediment Urine Bacteria Coarse Granular Casts Urine Opiates Screen Ur Barbiturates Screen Ur Phencyclidine Scrn Ur Amphetamines Screen U Benzodiazepines Scrn Urine Cocaine Screen U Marijuana (THC) Screen Ethyl Alcohol Hep Bs Antigen Hep Bs Antibody Hep B Core Total Ab Hepatitis C Antibody Non-reactive Influenza Type A Ag POC Influenza B Ag 03/15/19 03/15/19 03/15/19 03:20 04:00 06:40 WBC RBC Hgb Hct MCV MCH MCHC RDW Plt Count MPV Neut % (Auto) Lymph % (Auto) [place] % (Auto) Eos % (Auto) Baso % (Auto) Neut # (Auto) Lymph # (Auto) [place] # (Auto) Eos # (Auto) Baso # (Auto) Nucleated RBC % (auto) Nucleated RBCs # PT INR Specimen Type Arterial Sample Site Radial, left ABG pH 7.27 L ABG pCO2 45.2 H ABG pO2 105.0 H ABG HCO3 20.8 L ABG Base Excess -5.9 L Ted Test Pos Hematocrit 31.6 L O2 Delivery Device Nc O2 Liters/Min 5.0 Hammer Mill Operator ID [email or web address] Sodium Potassium Chloride Carbon Dioxide Anion Gap BUN Creatinine GFR Calculation Glucose POC Glucose Estimat Average Glucose Hemoglobin A1c Lactic Acid Calcium Phosphorus Magnesium Total Bilirubin AST ALT Alkaline Phosphatase Ammonia Troponin I 6 Hour Troponin I Hi Sens Del Troponin T Baseline Troponin T 120 Minute 214.50 H Delta Troponin T -30.50 L NT-Pro-B Natriuret Pep Total Protein Albumin Globulin Lipase Urine Color Yellow Urine Appearance Clear Urine pH 5 Ur Specific Agency 1.015 Urine Protein 3+ H Urine Glucose (UA) Norm Urine Ketones Negative Urine Occult Blood 2+ H Urine Nitrate Negative Urine Bilirubin Neg Urine Urobilinogen Norm Ur Leukocyte Esterase Negative Urine RBC 0-4 H Urine WBC Rare Ur Squamous Epith Cells None Amorphous Sediment 1+ Urine Bacteria 1+ H Coarse Granular Casts 0-4 H Urine Opiates Screen Ur Barbiturates Screen Ur Phencyclidine Scrn Ur Amphetamines Screen U Benzodiazepines Scrn Urine Cocaine Screen U Marijuana (THC) Screen Ethyl Alcohol Hep Bs Antigen Hep Bs Antibody Hep B Core Total Ab Hepatitis C Antibody Influenza Type A Ag POC Influenza B Ag 03/15/19 03/15/19 03/15/19 07:29 09:01 11:01 WBC RBC Hgb Hct MCV MCH MCHC RDW Plt Count MPV Neut % (Auto) Lymph % (Auto) [place] % (Auto) Eos % (Auto) Baso % (Auto) Neut # (Auto) Lymph # (Auto) Churchill # (Auto) Eos # (Auto) Baso # (Auto) Nucleated RBC % (auto) Nucleated RBCs # PT INR Specimen Type Sample Site ABG pH ABG pCO2 ABG pO2 ABG HCO3 ABG Base Excess Ted Test Hematocrit O2 Delivery Device O2 Liters/Min Hammer [employer] Operator ID Sodium Potassium Chloride Carbon Dioxide Anion Gap BUN Creatinine GFR Calculation Glucose POC Glucose 421 Estimat Average Glucose Hemoglobin A1c Lactic Acid Calcium Phosphorus Magnesium Total Bilirubin AST ALT Alkaline Phosphatase Ammonia Troponin I 6 Hour 218.3 H Troponin I Hi Sens Del -26.7 L Troponin T Baseline Troponin T 120 Minute Delta Troponin T NT-Pro-B Natriuret Pep Total Protein Albumin Globulin Lipase Urine Color Urine Appearance Urine pH Ur Specific Agency Urine Protein Urine Glucose (UA) Urine Ketones Urine Occult Blood Urine Nitrate Urine Bilirubin Urine Urobilinogen Ur Leukocyte Esterase Urine RBC Urine WBC Ur Squamous Epith Cells Amorphous Sediment Urine Bacteria Coarse Granular Casts Urine Opiates Screen Negative Ur Barbiturates Screen Negative Ur Phencyclidine Scrn Negative Ur Amphetamines Screen Negative U Benzodiazepines Scrn Negative Urine Cocaine Screen Negative U Marijuana (THC) Screen Negative Ethyl Alcohol Hep Bs Antigen Hep Bs Antibody Hep B Core Total Ab Hepatitis C Antibody Influenza Type A Ag POC Influenza B Ag 03/15/19 03/15/19 03/15/19 12:45 13:53 15:58 WBC RBC Hgb Hct MCV MCH MCHC RDW Plt Count MPV Neut % (Auto) Lymph % (Auto) [place] % (Auto) Eos % (Auto) Baso % (Auto) Neut # (Auto) Lymph # (Auto) [place] # (Auto) Eos # (Auto) Baso # (Auto) Nucleated RBC % (auto) Nucleated RBCs # PT INR Specimen Type Sample Site ABG pH ABG pCO2 ABG pO2 ABG HCO3 ABG Base Excess Ted Test Hematocrit O2 Delivery Device O2 Liters/Min Hammer [employer] Operator ID Sodium 129 L Potassium 5.9 H Chloride 87 L Carbon Dioxide 18 L Anion Gap 29.9 H BUN 149 H* Creatinine 5.9 H* GFR Calculation 9.7 L Glucose 523 H* POC Glucose 427 369 Estimat Average Glucose Hemoglobin A1c Lactic Acid Calcium 8.5 L Phosphorus Magnesium Total Bilirubin 0.2 AST 21 ALT 20 Alkaline Phosphatase 64 Ammonia Troponin I 6 Hour Troponin I Hi Sens Del Troponin T Baseline Troponin T 120 Minute Delta Troponin T NT-Pro-B Natriuret Pep Total Protein 7.5 Albumin 3.9 Globulin 3.6 Lipase Urine Color Urine Appearance Urine pH Ur Specific Agency Urine Protein Urine Glucose (UA) Urine Ketones Urine Occult Blood Urine Nitrate Urine Bilirubin Urine Urobilinogen Ur Leukocyte Esterase Urine RBC Urine WBC Ur Squamous Epith Cells Amorphous Sediment Urine Bacteria Coarse Granular Casts Urine Opiates Screen Ur Barbiturates Screen Ur Phencyclidine Scrn Ur Amphetamines Screen U Benzodiazepines Scrn Urine Cocaine Screen U Marijuana (THC) Screen Ethyl Alcohol Hep Bs Antigen Hep Bs Antibody Hep B Core Total Ab Hepatitis C Antibody Influenza Type A Ag POC Influenza B Ag 03/15/19 03/16/19 03/16/19 21:06 04:40 05:20 WBC 13.2 H RBC 3.18 L Hgb 9.4 L Hct 28.5 L MCV 89.6 MCH 29.6 MCHC 33.0 RDW 13.8 Plt Count 273 MPV 9.2 Neut % (Auto) 83.7 Lymph % (Auto) 9.5 Churchill % (Auto) 6.3 Eos % (Auto) 0.0 Baso % (Auto) 0.0 Neut # (Auto) 11.1 H Lymph # (Auto) 1.3 [place] # (Auto) 0.8 Eos # (Auto) 0.0 Baso # (Auto) 0.0 Nucleated RBC % (auto) 0 Nucleated RBCs # 0.0 PT INR Specimen Type Sample Site ABG pH ABG pCO2 ABG pO2 ABG HCO3 ABG Base Excess Ted Test Hematocrit O2 Delivery Device O2 Liters/Min Hammer [employer] Operator ID Sodium Potassium Chloride Carbon Dioxide Anion Gap BUN Creatinine GFR Calculation Glucose POC Glucose 86 Estimat Average Glucose Hemoglobin A1c Lactic Acid Calcium Phosphorus Magnesium Total Bilirubin AST ALT Alkaline Phosphatase Ammonia Troponin I 6 Hour Troponin I Hi Sens Del Troponin T Baseline Troponin T 120 Minute Delta Troponin T NT-Pro-B Natriuret Pep Total Protein Albumin Globulin Lipase Urine Color Urine Appearance Urine pH Ur Specific Agency Urine Protein Urine Glucose (UA) Urine Ketones Urine Occult Blood Urine Nitrate Urine Bilirubin Urine Urobilinogen Ur Leukocyte Esterase Urine RBC Urine WBC Ur Squamous Epith Cells Amorphous Sediment Urine Bacteria Coarse Granular Casts Urine Opiates Screen Ur Barbiturates Screen Ur Phencyclidine Scrn Ur Amphetamines Screen U Benzodiazepines Scrn Urine Cocaine Screen U Marijuana (THC) Screen Ethyl Alcohol Hep Bs Antigen Hep Bs Antibody Hep B Core Total Ab Hepatitis C Antibody Influenza Type A Ag Negative POC Influenza B Ag Negative 03/16/19 03/16/19 05:20 10:57 WBC RBC Hgb Hct MCV MCH MCHC RDW Plt Count MPV Neut % (Auto) Lymph % (Auto) [place] % (Auto) Eos % (Auto) Baso % (Auto) Neut # (Auto) Lymph # (Auto) [place] # (Auto) Eos # (Auto) Baso # (Auto) Nucleated RBC % (auto) Nucleated RBCs # PT INR Specimen Type Sample Site ABG pH ABG pCO2 ABG pO2 ABG HCO3 ABG Base Excess Ted Test Hematocrit O2 Delivery Device O2 Liters/Min Hammer Mill Operator ID Sodium 137 Potassium 4.5 Chloride 93 L Carbon Dioxide 26 Anion Gap 22.5 H BUN 109 H* Creatinine 4.9 H GFR Calculation 12.1 L Glucose 111 H POC Glucose 191 Estimat Average Glucose Hemoglobin A1c Lactic Acid Calcium 8.5 L Phosphorus 7.2 H Magnesium 2.3 Total Bilirubin 0.2 AST 24 ALT 18 Alkaline Phosphatase 56 Ammonia Troponin I 6 Hour Troponin I Hi Sens Del Troponin T Baseline Troponin T 120 Minute Delta Troponin T NT-Pro-B Natriuret Pep Total Protein 6.4 L Albumin 3.8 Globulin 2.6 Lipase Urine Color Urine Appearance Urine pH Ur Specific Agency Urine Protein Urine Glucose (UA) Urine Ketones Urine Occult Blood Urine Nitrate Urine Bilirubin Urine Urobilinogen Ur Leukocyte Esterase Urine RBC Urine WBC Ur Squamous Epith Cells Amorphous Sediment Urine Bacteria Coarse Granular Casts Urine Opiates Screen Ur Barbiturates Screen Ur Phencyclidine Scrn Ur Amphetamines Screen U Benzodiazepines Scrn Urine Cocaine Screen U Marijuana (THC) Screen Ethyl Alcohol Hep Bs Antigen Hep Bs Antibody Hep B Core Total Ab Hepatitis C Antibody Influenza Type A Ag POC Influenza B Ag Micro: Microbiology 03/15/19 02:58 Blood Culture - Preliminary Blood NEGATIVE TO DATE 03/15/19 02:57 Blood Culture - Preliminary Blood NEGATIVE TO DATE Cardiac Studies: No Data to Display
--- NOTE | 2019-03-16 15:44 | SC_ITS ---
WS: [id number] C-ARM RADIOGRAPHS CHEST; 2 IMAGES HISTORY: dialysis catheter COMPARISON: None available. Intraoperative imaging during dialysis catheter placement. Dialysis catheter is noted over the upper thorax. SC/C-arm FL for CVA [id number] IMPRESSION: Intraoperative imaging during dialysis catheter placement.
[2019-03-16] MEDS: sodium chloride 0.9% 1,000 ML 30 ML IV (15:58)
[2019-03-16] MEDS: lidocaine 1% INJ 20 mL IM (16:47)
[2019-03-16] MEDS: ceFAZolin 1,000 mg SDV 1000 MG IRRIGATION (16:53)
[2019-03-16] MEDS: heparin, porcine 1,000 unit/mL INJ 10 mL 6000 UNIT INJECTION (16:57)
--- NOTE | 2019-03-16 17:28 | XRR_ITS ---
PROCEDURE INFORMATION: Exam: XR Chest, 1 View Exam date and time: 03/16/2019 5:43 PM Age: 63 years old Clinical indication: Other vascular access device placement or adjustment; Other: Dialysis catheter; Additional info: Post dialysis cath TECHNIQUE: Imaging protocol: XR of the chest Views: 1 view. COMPARISON: CR XR chest 1V portable [id number] 03/15/2019 3:31 PM FINDINGS: Tubes, catheters and devices: Termination central venous catheter in the right atrium. Lungs: Incomplete visualization of the apices warranting repeat chest radiograph. Hyperinflation and interstitial prominence. Pleural space: No significant pneumothorax or pleural effusion in the incompletely visualized chest. Heart/Mediastinum: Borderline cardiomegaly and prominent epicardial fat. Bones/joints: Osteopenia and degenerative change. XR/XR chest 1V portable [id number] IMPRESSION: 1. Incomplete visualization of the apices warranting repeat chest radiograph. 2. Termination of central venous catheter in the right atrium.
--- NOTE | 2019-03-16 17:50 | P.OP_ITS ---
Operative Report Date of procedure: 03/16/19 Pre-op Diagnosis: Acute on chronic renal failure Post-op diagnosis: same Procedure Done: Tunneled left IJ dual-lumen dialysis catheter placement Removal of right subclavian temporary dialysis catheter Specimens removed/disposition: Temporary right subclavian dialysis catheter removed intact Surgeon: Horace Reyes Anesthesia: MAC and Local Estimated blood loss (mL): 30 Complications: None: Post procedure chest x-ray reveals appropriate catheter placement without evidence for pneumothorax Condition: stable Disposition: PACU Brief History: 63-year-old gentleman presents with acute on chronic renal insufficiency. Nephrology requested urgent hemodialysis yesterday, therefore a temporary right subclavian dialysis catheter was placed in the emergency room and he underwent hemodialysis last night. Hemodialysis was again performed this morning though flow was not as well as night. We recommended exchange to a more consistent tunnel dialysis catheter. This was carefully discussed with the patient and . Appropriate signs have been reviewed and signed. Procedure: The entire chest was sterilely prepped and draped. With the patient in Trendelenburg position, and utilizing a modified Seldinger technique, the left internal jugular vein was engaged with a needle and easily aspirated of blood utilizing handheld ultrasound guidance for identification and needle advancement.. Guidewire was placed and advanced without difficulty under fluoroscopic guidance. The patient was returned to the supine position. The fluoroscopy was then used to confirm appropriate placement of the guidewire during exchanges. Next, the dialysis catheter was measured to the appropriate length. A small incision was made in the left subclavicular region. The dialysis catheter was then tunneled from this point medially to the point of exit of the guidewire at the base of the left neck after the tunnel had been infiltrated with 1% lidocaine. Velcro cuff was placed in this tunnel. Next, utilizing a series of dilators over the guidewire, under fluoroscopic guidance, the subcutaneous tract was dilated. Next, a dilator and tear-away sheath was placed over the guidewire and advanced under fluoroscopic guidance. Dilator and guidewire were removed. The dual-lumen dialysis catheter was then placed in the tear-away sheath as the tear-away sheath was removed. The entire system was interrogated with fluoroscopy to confirm appropriate position. Next, each lumen of the catheter was aspirated of air and blood and flushed with heparin solution. Securing caps and clamps were applied. The superior wound was closed with 4-0 Monocryll suture in a subcuticular fashion. The dialysis catheter was secured to the skin with 2-0 silk suture. A sterile dressing was applied. There were equal breath sounds bilaterally at the completion of the procedure. Next, the right subclavian temporary dialysis catheter was removed with the patient's chest elevated at 30 degrees. Chest x-ray revealed appropriate catheter placement and without evidence for pneumothorax. I did travel counselor automobile club with the family at the completion of the procedure.
[2019-03-16 18:20] LABS: Glucose Point of Care 129 mg/dL (70-110)
[2019-03-16 20:55] LABS: Glucose Point of Care 266 mg/dL (70-110)
[2019-03-17] VITALS (8 sets, daily range): BP systolic 156–175; BP diastolic 68–75; PULSE 71–90; RESP 16–21; TEMP 36.5–36.8; O2SAT 92–99
[2019-03-17 05:53] LABS: Basophils % 0.2 %; Eosinophils # 0.2 10^3/uL (0.0-0.8); Eosinophils % 1.4 %; Hematocrit 28.7 % (42.0-52.0); Hemoglobin 9.1 g/dL (11.7-16.6); Lymphocytes # 1.5 10^3/uL (0.8-4.8); Lymphocytes % 12.9 %; Mean Corpuscular HGB Conc 31.7 g/dL (30.0-36.0); Mean Corpuscular Volume 91.4 fL (80-94); Mean Platelet Volume 9.7 fL (7.4-10.4); Monocytes # 1.3 10^3/uL (0.2-0.9); Monocytes % 10.8 %; Neutrophils # 8.8 10^3/uL (1.8-7.7); Neutrophils % 74.4 %; Nucleated Red Blood Cells % 0 %; Platelet Count 263 10^3/cmm (130-400); Red Blood Count 3.14 10^6/uL (4.1-5.3); White Blood Count 11.8 10^3/uL (4.0-10.0)
[2019-03-17] MEDS: heparin 5,000 unit/mL INJ 1 mL 5000 UNIT SUBCUT (05:53)
[2019-03-17] MEDS: HYDROcodone-acetaminophen 5-325 mg Tablet 1 TAB PO (06:01)
[2019-03-17 06:20] LABS: Alanine Aminotransferase 14 U/L (0-41); Albumin Level 3.7 g/dL (3.5-5.2); Alkaline Phosphatase 52 IU/L (40-130); Aspartate Amino Transferase 24 U/L (0-40); Carbon Dioxide 25 mmol/L (22-29); Chloride 97 mmol/L (98-107); Globulin 2.7 g/dL (1.3-4.6); Glomerular Filtration Rate 14.8 mL/min (90-130); Glucose 113 mg/dL (74-106); Magnesium 2.2 mg/dL (1.7-2.3); Phosphorus 6.1 mg/dL (2.5-4.5); Sodium 138 mmol/L (136-145); Total Bilirubin 0.2 mg/dL (0.15-1.2); Total Protein 6.4 g/dL (6.6-8.7)
[2019-03-17 06:34] LABS: Blood Urea Nitrogen 82 mg/dL (8-23)
[2019-03-17 06:36] LABS: Glucose Point of Care 105 mg/dL (70-110)
[2019-03-17 12:16] LABS: Glucose Point of Care 134 mg/dL (70-110)
[2019-03-17] MEDS: aspirin 81 mg EC Tablet PO (12:22)
[2019-03-17] MEDS: levothyroxine 88 mcg Tablet PO (12:22)
[2019-03-17] MEDS: cholecalciferol (vitamin D3) 1,000 unit Tablet 1000 UNIT PO (12:22)
[2019-03-17] MEDS: ferrous sulfate EC 325 mg Tablet PO (12:22)
[2019-03-17] MEDS: metoprolol succinate ER (24 HR) 100 mg Tablet 200 MG PO (12:22)
[2019-03-17] MEDS: multivitamin therapeutic Tablet 1 TAB PO (12:22)
[2019-03-17] MEDS: amlodipine 10 mg Tablet 5 MG PO (12:23)
[2019-03-17] MEDS: cloNIDine 0.1 mg Tablet PO (12:23)
[2019-03-17] MEDS: metOLazone 5 MG Tablet PO (12:30)
--- NOTE | 2019-03-17 13:53 | P.DS_ITS ---
Discharge Providers Date of Admission: 03/15/19 19:25 Date of Discharge: 03/17/19 Attending Provider at Admission: Rosita Madera MD Attending Provider at Discharge: Arnaldo Samson MD Primary Care Provider: Carla Ceballos MD Diagnoses at Discharge Discharge Diagnosis (1) Hypertensive urgency: Status: Acute (2) Hypoglycemia: Status: Acute (3) Acute kidney injury superimposed on chronic kidney disease: Status: Acute (4) COPD (chronic obstructive pulmonary disease): Status: Acute (5) Altered mental status: Status: Acute (6) Diastolic congestive heart failure: Status: Acute Reason for Visit Reason for Visit: Reason For Visit: CONFUSION/AMS Hospital Course Discharge Summary: This is a 63-year-old male with a past medical history of insulin-dependent type 2 diabetes mellitus, hypothyroidism, COPD 4 L oxygen at baseline, CKD stage V, diastolic CHF, hypertension who presented to the emergency room due to complaints of altered mental status Patient was admitted for altered mental status secondary to hypoglycemia and uremic encephalopathy. Patient's blood sugar at home was in the 60s, he was actually hyperglycemic here, patient's insulin requirements have likely decreased due to his declining renal function. Patient was discharged on Lantus 10 units twice daily, and NovoLog sliding scale. Patient was advised to check blood sugars 3 times daily, record them in a blood sugar log, call primary care if blood sugar greater than 500, if blood sugar less than 60 drink orange juice, and call primary care. For patient's uremia, BUN on admission was 149, creatinine 5.9. Patient sees Dr. Rapp as outpatient, and there were plans on placing a AV fistula eventually. Nephrology was consulted who recommended urgent dialysis, patient had a right subclavian temporary dialysis catheter placed by Dr. Reyes. However due to flow issues in dialysis through the temporary dialysis catheter, this was removed removed, and a tunneled left IJ dual-lumen dialysis catheter was placed by Dr. Reyes. Patient received dialysis using this new catheter, had good flow, tolerated it well, was discharged home with home health care, with instructions to start dialysis on Wednesday. Physical Exam Const: COMMON NORMALS: no apparent distress and oriented x3 GENERAL APPEARANCE: cooperative and comfortable Eye: COMMON NORMALS: PERRL, EOMs intact bilaterally and no papilledema GENERAL EYE: normal appearance of both eyes PUPIL: Yes PERRL DIRECT OPHTHALMOSCOPY: Yes no papilledema Neck/C-Spine: COMMON NORMALS: full ROM, no lymphadenopathy, no JVD and thyroid normal THYROID: thyroid normal OTHER: left IJ dual-lumen dialysis catheter Lymph: LYMPHATIC: no lymphadenopathy noted Resp: COMMON NORMALS: normal respiratory effort, no retractions, no use of accessory muscles and clear to auscultation bilaterally AUSCULTATION: clear to auscultation bilaterally Cardio: COMMON NORMALS: no JVD, regular rate, regular rhythm, S1 normal heart sound, S2 normal heart sound, no gallops, no clicks and no murmurs RATE: regular rate RHYTHM: regular rhythm HEART SOUNDS: S1 normal and S2 normal GI: COMMON NORMALS: normal to inspection, nondistended, normoactive bowel sounds, soft to palpation, non-tender and no hepatosplenomegaly PALPATION: Yes soft and Yes no hepatosplenomegaly Neuro: COMMON NORMALS: oriented x3 Discharge Data Data Completed and Pending: Completed Studies During Hospitalization Category Date Time Status CT head wo con* 7 0450 Urgent Cat Scan 03/15/19 02:[address] kidney stone 7 4176 Urgent Cat Scan 03/15/19 02:06 Completed XR chest 1V franki ble [id number] Routine Exams 03/15/19 15:32 Completed XR chest 1V franki ble [id number] Routine Exams 03/16/19 17:28 Completed XR chest 1V franki ble [id number] Stat Exams 03/15/19 02:07 Completed Pending at discharge Category Date Time Status Blood Culture Sta t Lab 03/15/19 02:58 Results Complete Blood Co unt w/Auto AM LABS Lab 03/18/19 04:00 Ordered Comprehensive Met abolic Panel AM LA BS Lab 03/18/19 04:00 Ordered Magnesium AM LABS Lab 03/18/19 04:00 Ordered Phosphorus AM LAB S Lab 03/18/19 04:00 Ordered Labs from last 24 hours 03/17/19 03/17/19 03/17/19 12:13 06:29 05:30 WBC RBC Hgb Hct MCV MCH MCHC RDW Plt Count MPV Neut % (Auto) Lymph % (Auto) [place] % (Auto) Eos % (Auto) Baso % (Auto) Neut # (Auto) Lymph # (Auto) [place] # (Auto) Eos # (Auto) Baso # (Auto) Nucleated RBC % (a uto) Nucleated RBCs # Sodium 138 Potassium 4.0 Chloride 97 L Carbon Dioxide 25 Anion Gap 20.0 H BUN 82 H* Creatinine 4.1 H GFR Calculation 14.8 L Glucose 113 H POC Glucose 134 105 Calcium 9.0 Phosphorus 6.1 H Magnesium 2.2 Total Bilirubin 0.2 AST 24 ALT 14 Alkaline Phosphata se 52 Total Protein 6.4 L Albumin 3.7 Globulin 2.7 03/17/19 03/16/19 03/16/19 05:30 20:51 18:17 WBC 11.8 H RBC 3.14 L Hgb 9.1 L Hct 28.7 L MCV 91.4 MCH 29.0 MCHC 31.7 RDW 14.0 Plt Count 263 MPV 9.7 Neut % (Auto) 74.4 Lymph % (Auto) 12.9 [place] % (Auto) 10.8 Eos % (Auto) 1.4 Baso % (Auto) 0.2 Neut # (Auto) 8.8 H Lymph # (Auto) 1.5 [place] # (Auto) 1.3 H Eos # (Auto) 0.2 Baso # (Auto) 0.0 Nucleated RBC % (a uto) 0 Nucleated RBCs # 0.0 Sodium Potassium Chloride Carbon Dioxide Anion Gap BUN Creatinine GFR Calculation Glucose POC Glucose 266 129 Calcium Phosphorus Magnesium Total Bilirubin AST ALT Alkaline Phosphata se Total Protein Albumin Globulin Vitals: Last Vital Signs Temp 98.3 F 03/17/19 13:17 Pulse 90 03/17/19 13:17 Resp 18 03/17/19 13:17 BP 157/75 03/17/19 13:17 Pulse Ox 97 03/17/19 13:17 Discharge Plan Discharge Patient Disposition: Home Health Service Condition: Stable Prescriptions: New clonidine HCl 0.1 mg Tablet 0.1 mg PO TID 30 Days Qty: 90 RF: 0 amlodipine 10 mg Tablet 5 mg PO DAILY 30 Days Qty: 30 RF: 0 Novolog Flexpen U-100 Insulin 100 unit/mL (3 mL) insulin pen See Rx Instructions .ROUTE .COMPLEX Qty: 15 RF: 0 Continued Daily Multi-Vitamin Tablet 1 tab PO DAILY RF: 0 metoprolol succinate 100 mg tablet extended release 24 hr 200 mg PO DAILY RF: 0 metolazone 5 mg tablet 5 mg PO DAILY RF: 0 aspirin 81 mg tablet,delayed release (DR/EC) 81 mg PO DAILY RF: 0 levothyroxine 88 mcg tablet 88 mcg PO DAILY RF: 0 ferrous sulfate 325 mg (65 mg iron) tablet,delayed release (DR/EC) 325 mg PO DAILY RF: 0 Vitamin D3 25 mcg (1,000 unit) tablet 1,000 unit PO DAILY RF: 0 Symbicort 160-4.5 mcg/actuation HFA aerosol inhaler 2 puff INHALATION BID RF: 0 Fish Oil 360-1,200 mg capsule 1 cap PO DAILY RF: 0 Changed Lantus U-100 Insulin 100 unit/mL solution 10 unit SUBCUT BID 30 Days Qty: 6 RF: 0 Held furosemide 40 mg tablet 80 mg PO BID RF: 0 Hold Instructions: Resume on 03/24/19. HOLD UNTILE SEEN BY Discontinued clonidine HCl 0.2 mg tablet 0.2 mg PO TID RF: 0 amlodipine 10 mg tablet 10 mg PO DAILY RF: 0 Novolog Flexpen U-100 Insulin 100 unit/mL (3 mL) insulin pen 18 unit SUBCUT BID RF: 0 Discharge Orders: Discharge Order (Routine); Ordered 03/17/19 Ordered By: Arnaldo Samson Referrals: Liu Rapp MD [Referring] - 1-3 days (You have a appoinment with Dr. Rapp on at 11am. -[address] [place] [address]) Discharge Diet: Cardiac Discharge Activity: Resume usual activity Patient Instructions: Clonidine (By mouth), Amlodipine (By mouth), Insulin Aspart, Recombinant (Injection), Diabetic Hypoglycemia (DC), How to Give a Subcutaneous Injection (GEN) Activity Restrictions/Additional Instructions: -Patient needs to have dialysis scheduled for Wednesday03/20/2019 -Check blood sugars 3 times daily -If blood sugar less than 60, drink or juice,, call primary care -If blood sugar greater than 500 call primary care -Your Lantus dose has been decreased to 10 units twice daily -Your short acting NovoLog, inject based on sliding scale provided in prescription, inject before meals Discharge Attestations Time Spent in Discharge Care*: less than 30 min Quality Metrics Clinical Quality Measures During this hospital stay, did patient experience: None Coding Level of Care Code Acute Fishing Captain for Chg Fwd Exam Problem Focused Diagnoses Hypertensive urgency I16.0 Hypoglycemia E16.2 Acute kidney injury superimposed on chronic kidney disease N17.9; N18.9 COPD (chronic obstructive pulmonary disease) J44.9 Altered mental status R41.82 Diastolic congestive heart failure I50.30
--- NOTE | 2019-03-17 15:21 | P.PN_ITS ---
Vitals/I&O/Wt Last Vital Signs Temp 98.3 F 03/17/19 13:17 Pulse 90 03/17/19 13:17 Resp 18 03/17/19 13:17 BP 157/75 03/17/19 13:17 Pulse Ox 97 03/17/19 13:17 03/17/19 03/17/19 03/17/19 06:59 14:59 22:59 Intake Total 60 / 60 Output Total 700 / 810 100 / 100 Balance -700 / -325 -40 / -40 Data : 03/17/19 05:30 03/17/19 05:30 A&P Additional A&P Information Uneventful dialysis treatment today. Permcath worked well. He feels well for discharge; outpatient dialysis has been arranged under direction of Dr Rapp for Wednesday at 6:30 am anemia management will continue at dialysis he has appointment to see vascular surgeon for AVF Attestations Medical Necessity Statement*: discharge today Coding Level of Care Code Acute Ostomy Nurse for Brynn Castro
== END 2019-03-17 15:52 | disposition home health service (06) | DRG 673 ==
LOC: ER 14:13 → MEDSURG 15:48
PROVIDERS: Internal Medicine Nephrology; Thoracic Surgery (Cardiothoracic Vascular Surgery); Admitting Provider Internal Medicine; Emergency Provider Emergency Medicine; Family Provider Internal Medicine; PCP Internal Medicine; Visit Provider Family Medicine
PROC: 0JH63XZ Insertion of Tunneled Vascular Access Device into Chest Subcutaneous Tissue and Fascia, Percutaneous Approach (ICD-10-PCS; principal; 2019-03-16 16:00)
DX: N17.9 Acute kidney failure, unspecified (principal); I50.31 Acute diastolic (congestive) heart failure; E87.2 Acidosis; I13.2 Hypertensive heart and chronic kidney disease with heart failure and with stage 5 chronic kidney disease, or end stage renal disease; G93.49 Other encephalopathy; I16.0 Hypertensive urgency; Z79.899 Other long term (current) drug therapy; E03.9 Hypothyroidism, unspecified; E66.01 Morbid (severe) obesity due to excess calories; E11.22 Type 2 diabetes mellitus with diabetic chronic kidney disease; Z79.4 Long term (current) use of insulin; K76.9 Liver disease, unspecified; Z79.82 Long term (current) use of aspirin; Z79.890 Hormone replacement therapy; E87.5 Hyperkalemia; E11.649 Type 2 diabetes mellitus with hypoglycemia without coma; N18.5 Chronic kidney disease, stage 5; M25.552 Pain in left hip; G89.29 Other chronic pain; M54.9 Dorsalgia, unspecified; Z99.81 Dependence on supplemental oxygen; J44.9 Chronic obstructive pulmonary disease, unspecified; Z66 Do not resuscitate
CPT/HCPCS: 12345; 36415; 36416; 36600; 70450; 71045; 74176; 76000; 77001; 80053; 80307; 81001; 82140; 82803; 82962; 83036; 83605; 83690; 83735; 83880; 84100; 84484; 85025; 85610; 86705; 86706; 86803; 87040; 87340; 87804; 90935; 93005; 94640; 96365; 96372; 96374; 99283; C1750; C1752; G0378; J0690; J1644; J1815; J1940; J2001; J2704; J2930; J3490; J7030; J7614; Q3014

== ENCOUNTER 2019-03-15 01:48 | Emergency (ER) | payer MEDICAID, SELFPAY | END 2019-03-15 14:06 | disposition admitted as inpatient to this hospital (09) | LOC: ER 04-07 13:02 | PROVIDERS: Emergency Provider Emergency Medicine; Family Provider Internal Medicine; PCP Internal Medicine | DX: E11.649 Type 2 diabetes mellitus with hypoglycemia without coma (principal); R41.82 Altered mental status, unspecified; R10.9 Unspecified abdominal pain; J44.9 Chronic obstructive pulmonary disease, unspecified; Z79.4 Long term (current) use of insulin; Z79.82 Long term (current) use of aspirin | CPT/HCPCS: 12345; 36415; 36416; 36600; 70450; 71045; 74176; 80053; 80307; 81001; 82140; 82803; 82962; 83036; 83605; 83690; 83735; 83880; 84484; 85025; 85610; 86705; 86706; 86803; 87040; 87340; 93005; 94640; 96361; 96372; 96374; 96375; 99283; 99285; G0378; J1644; J1815; J1940; J2930; J3490; J7030; J7614; Q3014 ==

== ENCOUNTER 2019-03-23 13:56 | Outpatient (CLI) | payer MEDICAID, SELFPAY ==
--- NOTE | 2019-03-23 14:15 | USCV_ITS ---
Helio Reynoso Age: 63 Gender: M : 1955 Exam Date: 03/23/2019 14:05 Ordering Phys: Liu Rapp MD Technologist: Marilyn Moreno Exam Location: [facility] [place] Indication: PRE OP FOR DIALYSIS GRAFT Findings RT PRE OP RIGHT AX V 5.7mm RIGHT AX A 6.0 mm RIGHT CEPH V UA 2.6mm RIGHT CEPH V FA 2.4mm RIGHT CEPH V WR 1.5mm RIGHT BAS V UA 2.8mm RIGHT BAS V AC 3.3mm RIGHT BR 2.4mm RIGHT BR V2 3.4mm RIGHT BR A 6.7mm RIGHT RAD A 2.6mm RIGHT ULN A 1.9mm LT PRE OO LEFT AX V 5.7mm LEFT AX A 7.7mm LEFT CEPH V UA 3.4mm LEFT CEPH V FA 4.0mm LEFT CEPH V WR 1.9mm LEFT BAS V UA 3.2mm LEFT BAS V AC 3.6mm LEFT MED BAS V 3.2mm LEFT BR V1 3.2mm LEFT BR V2 3.4mm LEFT BR A 6.3mm LEFT RAD A 3.2mm LEFT ULN A 2.3 Conclusions 1. Patent veins in the arteries of the upper extremities bilaterally 2. Relatively small caliber superficial veins on the left side 3. No evidence of venous thrombosis 4. The venous dimensions as mentioned above Dr Lam Murguia MD [facility] (Electronically Signed) Final Date: 24 March 2019 08:53 S
== END 2019-03-23 13:57 | disposition home or self-care (01) ==
LOC: US 13:58
PROVIDERS: Family Provider Internal Medicine; PCP Internal Medicine; Visit Provider Internal Medicine Nephrology
DX: N18.4 Chronic kidney disease, stage 4 (severe) (principal)
CPT/HCPCS: 93970

== ENCOUNTER 2019-04-10 10:08 | Day surgery (SDC) | payer MEDICAID, SELFPAY ==
[2019-04-07 11:32] VITALS: BMI 31.3
--- NOTE | 2019-04-10 | SCC_ITS ---
Procedure Done: Removal of dialysis catheter from the left internal jugular vein 110.7 seconds of fluoroscopic guidance, for a cumulative dose of 16.12 mGy, was provided to Dr. Steinberg by the radiology department. C-arm images of the chest were saved for the patient's permanent record. [facility]
[2019-04-10 10:53] VITALS: BP 151/67; PULSE 72; RESP 20; TEMP 36.4; O2SAT 100
[2019-04-10] MEDS: sodium chloride 0.9% 1,000 ML 15 ML IV (11:07)
--- NOTE | 2019-04-10 11:14 | ANES.PREANE2 ---
Pre-Anesthetic Assessment Pre-Anesthetic Assessment: Height/Weight: Height 1.7 m Weight 90.718 kg Temp Pulse Resp BP Pulse Ox 97.5 F L 72 20 H 151/67 100 04/10/19 10:53 04/10/19 10:53 04/10/19 10:53 04/10/19 10:53 04/10/19 10:53 Preop Diagnosis: Acute renal failure Proposed Procedure: Operation Date: 04/10/19 11:45 Proposed Procedures p Hemodialysis Dialysis Catheter [id number](Not Applicable) - Giovanni Steinberg MD Was Beta Veronica taken within 24 hours: Yes Last intake: Intake Last Liquid Date 04/09/19 Last Liquid Time 20:00 Last Solid Date 04/09/19 Last Solid Time 18:00 Social: Social History: Tobacco (quit 2016) and No alcohol Exam: Pre-Anes Outpt Exam: alert, oriented x 3, clear to auscultation bilaterally and regular rate & rhythm Airway: Submandibular: WNL Cervical ROM: WNL MP: 2 Dentition: Other (very poor dentation) History/ROS: No significant history except as noted Pulmonary: Pulmonary: COPD, REYEZ and Sleep apnea CV/HEM: CV/HEM: CHF and HTN : : Chronic renal failure Hepatic: Hepatic: None reported GI: GI: None reported Metabolic: Metabolic: DM, Hyperlipidemia, Morbid obesity and Thyroid Musc/skel: Musc/skel: OA/DJD Neuropsych: Neuropsych: None reported Anesthetic Plan: ASA status: 3 Anesthesia: Anesthesia Evaluation and MAC Risk of > 500 ml blood loss (7ml/kg in children): No Meds/Allergies Current Medications: Current Medications Generic Name Dose Route Start Last Admin Trade Name Freq PRN Reason Stop Dose Admin Sodium Chloride 1,000 mls @ 30 ml s/hr 04/10/19 10:30 04/10/19 11:07 Sodium Chloride 0.9% IV 04/11/19 10:29 15 mls/hr .Q24H LENNIE Administration PFSH Anesthesia PFSH: Medical History Blood transfusion abn reaction or complication, no procedure mishap Cataract disorder type 14 CKD (chronic kidney disease), stage IV COPD (chronic obstructive pulmonary disease) COPD (chronic obstructive pulmonary disease) Diastolic congestive heart failure Hypothyroidism Insulin dependent type 2 diabetes mellitus Iron deficiency anemia Morbid obesity Nonalcoholic liver disease, chronic Surgical History History of open reduction and internal fixation (ORIF) procedure S/P dialysis catheter insertion Family History Other CAD (coronary artery disease) Hyperlipidemia Hypertension Denies family history of Cancer Social History Smoking and tobacco status: former smoker Alcohol intake: never Household members: family History of recent travel: No Data Anesthesia Cardiac Studies: No Data to Display
--- NOTE | 2019-04-10 11:38 | W.PM.OPSUD ---
Surgery/Procedure H&P Update DATE OF PROCEDURE: April 10, 2019 DATE H&P PERFORMED: 03/28/19 H&P UPDATE INFORMATION: H&P completed within last 30 days and No changes to prior documentation PREOP DIAGNOSIS: Acute renal failure PLANNED PROCEDURE: Operation Date: 04/10/19 11:45 Proposed Procedures p Hemodialysis Dialysis Catheter [id number]/N18.9(Not Applicable) - Giovanni Steinberg MD
--- NOTE | 2019-04-10 13:01 | PM.OP ---
Operative Report Date of procedure: April 10, 2019 Pre-op Diagnosis: Acute renal failure Pre-op Diagnosis: Nonfunctioning left IJ tunneled dialysis catheter Post-op diagnosis: same Procedure Done: Removal of dialysis catheter from the left internal jugular vein Placement of tunneled AshSplit hemodialysis catheter in the right internal jugular vein Fluoroscopic guidance and interpretation for placement of catheter in the distal superior vena cava Ultrasound guidance to access the right internal jugular vein Pathology: none sent Surgeon: Giovanni Steinberg Anesthesia: MAC Estimated blood loss (mL): 10 Condition: stable Disposition: PACU Procedure: The patient was taken to the operating room and placed under MAC after IV antibiotic had been administered. The chest and neck were prepped and draped in a sterile manner bilaterally. An ultrasound of the right internal jugular vein revealed patent flow, no thrombus identified. Using introducer needle the internal jugular vein on the right side was accessed and guidewire passed into the right atrium under fluoroscopy. Under fluoroscopy the location for the dialysis catheter was marked. Using 11 blade a skin incision was extended at the vein access site as well as the previously marked location on the left chest wall. The dialysis catheter was attached to the tunneler and passed subcutaneously, exiting at the venous access site. Serial dilators were passed over the guidewire under fluoroscopy. Finally the dilator peel-away sheath was passed over the guidewire and the inner dilator and guidewire was removed and the dialysis catheter was introduced into the left internal jugular vein as the peel-away sheath was removed. The tip of the catheter was noted to be in the right atrium. Both ports of the catheter courtney blood and flushed easily. The catheter was sutured to the skin using 2-0 Prolene and the venous access site was closed with 4-0 Monocryl and Dermabond. A total of 5 mL of 1:10,000 heparin was injected into the 2 ports under dialysis catheter. After confirming good position and functioning right IJ tunneled dialysis catheter, the sutures of the left tunneled IJ dialysis catheter was cut and the catheter was dissected from the surrounding subcutaneous tissue up to the cuff and removed intact without difficulty. Pressure dressings were applied Fluoroscopic guidance and interpretation for passage of guidewire and dilator and placement of catheter in the right atrium.
--- NOTE | 2019-04-10 13:06 | SC_ITS ---
WS: [id number] C-arm FL for CVA [id number] REASON FOR EXAM: dialysis cath FINDINGS: A triple-lumen dialysis catheter is seen extending from the side the tip is down below in t he inferior vena cava. No complications of the chest no pneumothorax or fluid is seen. SC/C-arm FL for CVA [id number] IMPRESSION: Dialysis catheter in the inferior vena cava.
[2019-04-10] MEDS: lidocaine 1% INJ 20 mL 5 ML INJECTION (13:30)
[2019-04-10] MEDS: heparin, porcine 1,000 unit/mL INJ 10 mL 6000 UNIT IRRIGATION (13:33)
[2019-04-10] MEDS: lidocaine 1% INJ 20 mL 5 ML IM (13:44)
[2019-04-10 13:54] VITALS: BP 138/72; PULSE 66; RESP 66; TEMP 36.2; O2SAT 100
[2019-04-10 14:36] VITALS: BP 155/77; PULSE 70; RESP 20; TEMP 36.3; O2SAT 99
== END 2019-04-10 15:25 | disposition home or self-care (01) ==
PROVIDERS: Family Provider Internal Medicine; PCP Internal Medicine; Visit Provider Surgery
PROC: (CPT 36590; principal; 2019-04-10 11:45)
DX: Z49.01 Encounter for fitting and adjustment of extracorporeal dialysis catheter (principal); Z79.82 Long term (current) use of aspirin; Z79.4 Long term (current) use of insulin; J44.9 Chronic obstructive pulmonary disease, unspecified; E03.9 Hypothyroidism, unspecified; E66.01 Morbid (severe) obesity due to excess calories; Z68.31 Body mass index [BMI] 31.0-31.9, adult; Z82.49 Family history of ischemic heart disease and other diseases of the circulatory system; Z87.891 Personal history of nicotine dependence; E11.22 Type 2 diabetes mellitus with diabetic chronic kidney disease; I13.0 Hypertensive heart and chronic kidney disease with heart failure and stage 1 through stage 4 chronic kidney disease, or unspecified chronic kidney disease; N18.4 Chronic kidney disease, stage 4 (severe); I50.30 Unspecified diastolic (congestive) heart failure; E78.5 Hyperlipidemia, unspecified; M19.90 Unspecified osteoarthritis, unspecified site; I11.0 Hypertensive heart disease with heart failure
CPT/HCPCS: 36590; 12345; 36415; 76000; 77001; 85025; 96365; C1750; J0690; J1644; J2001; J2704; J3010; J3490; J7030

== ENCOUNTER 2019-05-03 06:15 | Day surgery (SDC) | payer MEDICAID, SELFPAY ==
[2019-05-02 09:01] VITALS: BMI 30.4
[2019-05-03] VITALS (7 sets, daily range): BP systolic 90–120; BP diastolic 44–61; PULSE 66–77; RESP 17–20; TEMP 36.1–37.1; O2SAT 94–100
--- NOTE | 2019-05-03 06:44 | W.PM.OPSUD ---
Surgery/Procedure H&P Update DATE OF PROCEDURE: May 03, 2019 DATE H&P PERFORMED: 04/13/19 H&P UPDATE INFORMATION: I have reviewed H&P completed within last 30 days, I have examined patient prior to procedure and No changes to prior documentation PREOP DIAGNOSIS: Left forearm av fistula PRIMARY INDICATION FOR PROCEDURE: Chronic renal insufficiency PLANNED PROCEDURE: Operation Date: 05/03/19 07:00 Proposed Procedures p AV Fistula Dialysis Catheter(Not Applicable) - Horace Reyes MD
[2019-05-03 06:53] LABS: Glucose Point of Care 185 mg/dL (70-110)
--- NOTE | 2019-05-03 07:04 | ANES.PREANE2 ---
Pre-Anesthetic Assessment Pre-Anesthetic Assessment: Height/Weight: Height 1.73 m Weight 90.718 kg Temp Pulse Resp BP Pulse Ox 97 F L 66 20 H 120/61 99 05/03/19 06:26 05/03/19 06:26 05/03/19 06:26 05/03/19 06:26 05/03/19 06:26 Preop Diagnosis: Left forearm av fistula Proposed Procedure: Operation Date: 05/03/19 07:00 Proposed Procedures p AV Fistula Dialysis Catheter(Not Applicable) - Horace Reyes MD Was Beta Veronica taken within 24 hours: Yes Last intake: Intake Last Liquid Date 05/02/19 Last Liquid Time 17:00 Last Solid Date 05/02/19 Last Solid Time 17:00 Social: Social History: No alcohol and No tobacco (h/o smoking) Exam: Pre-Anes Outpt Exam: alert, oriented x 3, clear to auscultation bilaterally and regular rate & rhythm Airway: Submandibular: WNL MP: 3 Additional comments: Poor dentition Pulmonary: Pulmonary: COPD CV/HEM: CV/HEM: Anemia and HTN : : Chronic renal failure Hepatic: Comments: Nonalcoholic liver dz GI: GI: None reported Metabolic: Metabolic: Morbid obesity Musc/skel: Musc/skel: None reported Neuropsych: Neuropsych: None reported Anesthetic Plan: ASA status: 3 Anesthesia: General Risk of > 500 ml blood loss (7ml/kg in children): No PFSH Anesthesia PFSH: Social History Smoking and tobacco status: former smoker Alcohol intake: never Household members: family History of recent travel: No Data Anesthesia Other Labs: Laboratory Results - last 48 hr 05/03/19 06:46 POC Glucose 185 Cardiac Studies: No Data to Display
[2019-05-03 07:05] LABS: Basophils # 0.1 10^3/uL (0.0-0.1); Basophils % 0.5 %; Eosinophils # 0.2 10^3/uL (0.0-0.8); Eosinophils % 2.3 %; Hematocrit 34.3 % (42.0-52.0); Lymphocytes # 2.1 10^3/uL (0.8-4.8); Lymphocytes % 21.9 %; Mean Corpuscular HGB Conc 32.1 g/dL (30.0-36.0); Mean Corpuscular Hemoglobin 29.3 pg (28.0-34.0); Mean Corpuscular Volume 91.2 fL (80-94); Mean Platelet Volume 9.7 fL (7.4-10.4); Monocytes # 0.9 10^3/uL (0.2-0.9); Monocytes % 9.3 %; Neutrophils # 6.4 10^3/uL (1.8-7.7); Neutrophils % 65.6 %; Nucleated Red Blood Cells % 0 %; Platelet Count 326 10^3/cmm (130-400); Red Blood Count 3.76 10^6/uL (4.1-5.3); Red Cell Distribution Width 14.8 % (12.1-15.1); White Blood Count 9.7 10^3/uL (4.0-10.0)
[2019-05-03] MEDS: sodium chloride 0.9% 1,000 ML 30 ML IV (07:07)
[2019-05-03 07:18] LABS: Anion Gap 21.5 (5-19); Blood Urea Nitrogen 50 mg/dL (8-23); Calcium 8.9 mg/dL (8.5-10.5); Carbon Dioxide 25 mmol/L (22-29); Chloride 90 mmol/L (98-107); Glomerular Filtration Rate 9.9 mL/min (90-130); Glucose 210 mg/dL (65-115); Osmolality Calculated 278 mOsm/kg (285-295); Potassium 4.5 mmol/L (3.5-5.1); Sodium 132 mmol/L (136-145)
[2019-05-03] MEDS: ceFAZolin 1,000 mg SDV 1000 MG IRRIGATION (07:52)
[2019-05-03] MEDS: heparin,porcine 1,000 unit/mL INJ 1 mL 1750 UNIT INJECTION (07:53)
[2019-05-03] MEDS: sodium bicarbonate 1 mEq/mL SDV 50mL 0.7 MEQ IRRIGATION (07:56)
[2019-05-03] MEDS: lidocaine 1% INJ 20 mL SUBCUT (09:13)
--- NOTE | 2019-05-03 09:46 | SUR.PHASEI ---
0904 PATIENT TO PACU AT THIS TIME. RR EVEN AND UNLABORED. PLACED ON SIMPLE MASK AT 8L, SPO2 100%. DRESSING CDI, TO RIGHT CHEST AND LEFT WRIST. PATIENT DENIES PAIN.
--- NOTE | 2019-05-03 09:48 | P.OP_ITS ---
Operative Report Date of procedure: May 03, 2019 Pre-op Diagnosis: Left forearm av fistula Post-op diagnosis: same Procedure Done: Left wrist radiocephalic AV fistula creation Pathology: none sent Surgeon: Horace Reyes Anesthesia: MAC and Local (7 cc) Complications: None Condition: stable Disposition: PACU Brief History: 63-year-old gentleman with progressive renal dysfunction currently being hemodialyzed through a right IJ tunneled dialysis catheter. He underwent preop review and interrogation. I recommended attempt at a left forearm autogenous AV fistula. Details the risk of procedure carefully and frankly discussed including potential need for further revisions or failure for maturation of the AV fistula. Procedure: Mr. Reynoso was taken operating room theater and carefully positioned. Appropriate timeout was administered. He underwent IV conscious sedation anesthesia monitoring. His entire left arm forearm and shoulder and lateral chest wall was sterilely prepped and draped. With interrogation by handheld ultrasound I felt that the distal cephalic vein may be of adequate size to allow for a left wrist fistula. 1% lidocaine was infiltrated longitudinally at the left wrist over the radial pulse. #15 scalpel utilized to incise the skin and carefully continue down with cautery and Metzenbaum scissors toward the flexor fascia. Dissection was then continued laterally identifying the cephalic vein. Vessel was dissected free proximally and distally to allow for mobilization. I then opened up the fascia exposing the radial artery and mobi lized it proximally distally as well. Patient received 5000 units of heparin. The cephalic vein was clipped quite distally and then divided. The more proximal end was brought over for the radial artery where it was able to reach without tension. There was excellent backbleeding. Small vascular clamps were placed on the proximal cephalic vein as well as the radial artery proximally distally. A generous spatulated venous end was created and radial arteriotomy also created. An end to side anastomosis was then perform utilizing 7-0 Prolene suture. Vascular clamps were removed and flow was reestablished. Hand-held Doppler revealed a brisk bruit extending up to the proximal arm over the basilic region. Hemostasis was confirmed with anastomosis. We elected not to reverse heparin. Surgicel was applied. Wound was closed with 3-0 Vicryl suture in 2 layers followed by adhesive. Sterile dressing was applied. Mr. Reynoso told procedure well and was taken to the postoperative care unit in stable condition. We counseled with the family at completion of the procedure.
--- NOTE | 2019-05-03 09:52 | PM.PACU ---
PACU note Post-Anesthesia Exam: awake and vital signs stable Disposition: discharged
--- NOTE | 2019-05-03 09:58 | SUR.PHASEI ---
0956 PATIENT TO OPS AT THIS TIME. NO DISTRESS. DENIES PAIN. DRESSING TO RIGHT CHEST AND LEFT WRIST, CDI.
== END 2019-05-03 10:35 | disposition home or self-care (01) ==
PROVIDERS: Family Provider Internal Medicine; PCP Internal Medicine; Visit Provider Thoracic Surgery (Cardiothoracic Vascular Surgery)
PROC: (CPT 36818; principal; 2019-05-03 07:00)
DX: E11.22 Type 2 diabetes mellitus with diabetic chronic kidney disease (principal); I13.2 Hypertensive heart and chronic kidney disease with heart failure and with stage 5 chronic kidney disease, or end stage renal disease; I50.30 Unspecified diastolic (congestive) heart failure; N18.6 End stage renal disease; J44.9 Chronic obstructive pulmonary disease, unspecified; E66.01 Morbid (severe) obesity due to excess calories; Z82.49 Family history of ischemic heart disease and other diseases of the circulatory system; Z87.891 Personal history of nicotine dependence; Z79.82 Long term (current) use of aspirin; Z79.4 Long term (current) use of insulin; Z99.81 Dependence on supplemental oxygen
CPT/HCPCS: 36818; 12345; 36416; 80048; 82962; 85025; J0690; J1644; J2001; J2250; J2370; J2405; J2704; J2765; J3010; J3535; J7030

== ENCOUNTER 2019-08-19 14:34 | Inpatient (IN) | payer MEDICARE, MEDICAID, SELFPAY ==
[2019-08-19] VITALS (21 sets, daily range): BP systolic 101–158; BP diastolic 44–97; PULSE 72–83; RESP 8–29; TEMP 36.4–36.8; O2SAT 92–100; BMI 31.1
--- NOTE | 2019-08-19 14:55 | PC.NURSE ---
EKG done at 1440 and shown to ER doctor
--- NOTE | 2019-08-19 14:57 | XRR_ITS ---
PROCEDURE INFORMATION: Exam: XR Chest, 1 View Exam date and time: 08/19/2019 2:57 PM Age: 64 years old Clinical indication: Shortness of breath TECHNIQUE: Imaging protocol: XR of the chest Views: 1 view. COMPARISON: CR XR chest 1V portable [id number] 03/16/2019 5:25 PM FINDINGS: Tubes, catheters and devices: Dual lumen central venous catheter with the distal tips projecting over the right atrium. Lungs: There is scarring and/or atelectasis along the horizontal fissure. Pleural space: Unremarkable. No pleural effusion. No pneumothorax. Heart/Mediastinum: Unremarkable. No cardiomegaly. Bones/joints: Unremarkable. XR/XR chest 1V portable [id number] IMPRESSION: No acute findings.
[2019-08-19 15:43] LABS: Basophils # 0.1 10^3/uL (0.0-0.1); Basophils % 0.2 %; Lymphocytes # 1.9 10^3/uL (0.8-4.8); Lymphocytes % 8.8 %; Mean Corpuscular HGB Conc 31.2 g/dL (30.0-36.0); Mean Corpuscular Hemoglobin 32.1 pg (28.0-34.0); Mean Platelet Volume 9.8 fL (7.4-10.4); Monocytes # 1.4 10^3/uL (0.2-0.9); Monocytes % 6.4 %; Neutrophils # 17.1 10^3/uL (1.8-7.7); Neutrophils % 80.9 %; Nucleated Red Blood Cells # 0.2 /100WBC; Nucleated Red Blood Cells % 0.8 %; Platelet Count 379 10^3/cmm (130-400); Red Blood Count 1.68 10^6/uL (4.1-5.3); Red Cell Distribution Width 16.3 % (12.1-15.1); White Blood Count 21.1 10^3/uL (4.0-10.0)
[2019-08-19 15:53] LABS: Hematocrit 17.3 % (42.0-52.0); Hemoglobin 5.4 g/dL (11.7-16.6)
--- NOTE | 2019-08-19 15:56 | CTR_ITS ---
PROCEDURE INFORMATION: Exam: CT Abdomen And Pelvis Without Contrast Exam date and time: 08/19/2019 3:59 PM Age: 64 years old Clinical indication: Abdominal pain; Additional info: Diarrhea, leucocytosis, anemia TECHNIQUE: Imaging protocol: Computed tomography of the abdomen and pelvis without contrast. Radiation optimization: All CT scans at this facility use at least one of these dose optimization techniques: automated exposure control; mA and/or kV adjustment per patient size (includes targeted exams where dose is matched to clinical indication); or iterative reconstruction. COMPARISON: CT kidney stone [id number] 03/15/2019 4:01 AM RADIATION DOSE METRICS: Total DLP (mGy-cm): 1199.36 FINDINGS: Lungs: Multifocal small patchy opacities at the left lung base the larger of which measures 9 mm. Liver: Normal. No mass. Gallbladder and bile ducts: Cholelithiasis. Pancreas: Normal. No ductal dilation. Spleen: Normal. No splenomegaly. Adrenals: Normal. No mass. Kidneys and ureters: Normal. No hydronephrosis. Stomach and bowel: Large right lumbar hernia containing large and small bowel was seen the prior study as well. There is minimal inflammatory stranding in the herniated mesentery raising concern for strangulation. A normal appendix is identified in the right lumbar hernia. Appendix: See Stomach and bowel finding. Intraperitoneal space: See Stomach and bowel finding. Vasculature: Multivessel atherosclerotic disease which involves the coronary arteries. Lymph nodes: Unremarkable. No enlarged lymph nodes. Bladder: Unremarkable as visualized. Reproductive: There are calcifications in the prostate gland. Bones/joints: Unremarkable. No acute fracture. Soft tissues: Tiny fat containing umbilical hernia. CT/CT abdomen pelvis wo con [id number] IMPRESSION: 1. Large right lumbar hernia containing large and small bowel with mild associated mesenteric inflammatory stranding raising concern for inflammation or strangulation. 2. Multifocal small patchy opacities at the left lung base the larger of which measures 9 mm.For patients at low risk (minimal or absent history of smoking and of other known risk factors), recommend CT at 3-6 months, then consider CT at 18-24 months. For patients at high risk (history of smoking or of other known risk factors), recommend CT at 3-6 months, then CT at 18-24 months. (marc Sanders al., Fleischner Society, 2017) 3. Multivessel atherosclerotic disease which involves the coronary arteries. 4. Cholelithiasis. Radiation Dose CTDIVOL = (mGy): DLP = 1199.36 (mGy-cm)
[2019-08-19 15:57] LABS: Alanine Aminotransferase 12 U/L (0-41); Albumin Level 3.5 g/dL (3.5-5.2); Alkaline Phosphatase 54 IU/L (40-130); Anion Gap 28.1 (5-19); Aspartate Amino Transferase 26 U/L (0-40); Calcium 7.9 mg/dL (8.5-10.5); Carbon Dioxide 24 mmol/L (22-29); Chloride 88 mmol/L (98-107); Globulin 2.3 g/dL (1.3-4.6); Glomerular Filtration Rate 8.8 mL/min (90-130); Glucose 285 mg/dL (65-115); Lactate (Lactic Acid level) 2.6 mmol/L (0.5-2.2); Lipase 33 U/L (13-60); Osmolality Calculated 291 mOsm/kg (285-295); Potassium 5.1 mmol/L (3.5-5.1); Sodium 135 mmol/L (136-145); Total Bilirubin 0.2 mg/dL (0.15-1.2); Total Protein 5.8 g/dL (6.6-8.7)
[2019-08-19 16:08] LABS: Blood Urea Nitrogen 101 mg/dL (8-23)
--- NOTE | 2019-08-19 16:18 | PC.NURSE ---
On bed mullen that the moment
--- NOTE | 2019-08-19 16:28 | ED_ITS ---
HPI - Weakness General: Chief complaint: Weakness Stated complaint: SOB Time Seen by Provider: 08/19/19 14:44 Source: patient and EMS Mode of arrival: EMS Limitations: no limitations History of Present Illness: HPI Narrative: 64-year-old male with a history of end-stage renal disease on hemodialysis Wednesday and Wednesday presents to the emergency department by EMS. Per EMS the patient complained of weakness and diarrhea. After his dialysis session yesterday he developed diarrhea and has had several episodes so far. He then became weak today. When the ambulance got to his house they said the patient was hypoxic with oxygen saturations in the 70s on his regular 4 L of oxygen. They then placed him on oxygen at 8 L and valuable to get saturations up to the 80s. He was also said to be hypotensive. He apparently had difficulty walking to the cot. The patient admits to diarrhea, but states he has no complaints. He denies weakness, chest pain, abdominal pain, difficulty breathing, dizziness. He is alert and oriented and in no distress. Associated symptoms: Denies dysuria or headache(s) Review of Systems General: Reports: 10 or more systems reviewed and unremarkable except in HPI and below Const: Reports: fatigue Eyes: Denies: change in vision or blurry vision ENMT: Denies: throat pain, enlarged tonsils, odynophagia, hoarseness, mouth pain or swelling of lips/tongue Card: Denies: palpitations, irregular heart rhythm, edema or swelling of feet/ankles Resp: Denies: dyspnea, productive cough or non-productive cough GI: Reports: diarrhea : Denies: flank pain, dysuria, urinary frequency, urinary urgency or urinary hesitancy Musc: Denies: neck pain, back pain or extremity swelling Skin/Breast: Denies: rash, pruritus or erythema Neuro: Denies: headache(s), numbness in extremities or weakness in extremities Endo: Denies: polyuria, polydipsia or tired all the time PFSH ED PFSH: Medical History Blood transfusion abn reaction or complication, no procedure mishap Cataract disorder type 14 CKD (chronic kidney disease), stage IV COPD (chronic obstructive pulmonary disease) COPD (chronic obstructive pulmonary disease) Diastolic congestive heart failure ESRD (end stage renal disease) Hypothyroidism Insulin dependent type 2 diabetes mellitus Iron deficiency anemia Morbid obesity Nonalcoholic liver disease, chronic Surgical History History of open reduction and internal fixation (ORIF) procedure S/P dialysis catheter insertion Status post creation of arteriovenous fistula Family History Other CAD (coronary artery disease) Hyperlipidemia Hypertension Denies family history of Cancer Social History Smoking and tobacco status: former smoker Alcohol intake: never Substance/Drug Use: never Household members: family and other Details: Lives with his mother History of recent travel: No Physical Exam Const: COMMON NORMALS: no acute distress, average body habitus, patient oriented x3, no limitations, healthy appearing, alert and well nourished HENMT: COMMON NORMALS: normocephalic, atraumatic and moist oral mucous membranes HEAD & SCALP: normocephalic and atraumatic Neck/C-Spine: COMMON NORMALS: no meningeal signs and no JVD Resp: COMMON NORMALS: normal respiratory effort, No retractions, No use of accessory muscles, clear to auscultation bilaterally and percussion normal AUSCULTATION: clear to auscultation bilaterally PERCUSSION: percussion normal Cardio: COMMON NORMALS: no JVD, regular rate, regular rhythm, S1 normal heart sound present, S2 normal heart sound present, No gallops present (Cardio), No clicks present (Cardio), No murmurs present (Cardio), No rub (Cardio) and Peripheral pulses 2+ throughout RATE: regular rate RHYTHM: regular rhythm HEART SOUNDS: S1 normal heart sound present and S2 normal heart sound present PERIPHERAL PULSES: Peripheral pulses 2+ throughout GI: COMMON NORMALS: Normal to inspection, nondistended, normoactive bowel sounds present, Soft to palpation, non-tender, No hepatosplenomegaly present, no masses and no bruits PALPATION: Yes Soft to palpation and Yes No hepatosplenomegaly present OTHER: He has a hernial swelling in his right flank region. Nontender, no firm. : COMMON NORMALS: Yes no CVA tenderness BLADDER/KIDNEY EXAM: Yes no CVA tenderness Back/Pelvis: COMMON NORMALS: no CVA tenderness Extremity: COMMON NORMALS: normal to inspection, full ROM, capillary refill normal, no calf tenderness and no pedal edema Neuro: COMMON NORMALS: patient oriented x3 SENSORIUM/ORIENTATION: Yes alert MENINGEAL SIGNS: Yes no meningeal signs Skin: COMMON NORMALS: no rashes or lesions noted, no wounds, turgor normal, no jaundice, no petechiae and no mottling GENERAL SKIN EXAM: no rashes or lesions noted, turgor normal and pallor Course Reevaluation(s): Reevaluation #1: I have discussed his lab findings with him throughout the day. He is severely anemic and requires PRBC transfusion, he also has signs of an infective process with leucocytosis and mesenteric inflammatory stranding on CT of his abdomen. He will benefit from IV antibiotics and other evaluation and management. He voiced understanding and all questions answered. Time: 19:00 Consultations: Consultation #1: Discussed the case with Dr. Steinberg, CT scan findings of mesenteric inflammatory stranding in the lumbar hernia. Concerns for either strangulation or inflammation. He looked at the images and said the hernial mouth is a large and so quite unlikely to be strangulated. He believes this is an inflammatory process that needs medical management. Time: 18:01 Consultation #2: Dr. Madera, hospitalist. He kindly accepted the patient to his service. Time: 19:10 Vital Signs: Vital signs: Vital Signs Temperature 98 F 08/19/19 23:51 Pulse Rate 78 08/19/19 23:51 Respiratory Rate 19 H 08/19/19 23:51 Blood Pressure 140/62 08/19/19 23:51 Pulse Oximetry 100 08/19/19 23:51 MDM - Weakness MDM Narrative: Medical decision making narrative: 64-year-old gentleman who was brought into the emergency department with complaints of weakness and diarrhea. Evaluation in the ED shows the patient is severely anemic, and CT scan findings are suggestive of mesenteric inflammatory stranding. He has leukocytosis also. Because of all this the patient is admitted to the ICU for further evaluation and management. He was started on packed red blood cell transfusion in the emergency department Medical Records: Attestation: I reviewed the patient's medical records. Lab Data: Attestation: I reviewed the patient's lab results. Labs: Lab Results 08/19/19 08/19/19 08/19/19 Range/Units 15:34 15:34 15:34 WBC 21.1 H (4.0-10.0) 10^3/ uL RBC 1.68 L (4.1-5.3) 10^6/u L Hgb 5.4 L* (11.7-16.6) g/dL Hct 17.3 L* (42.0-52.0) % MCV 103.0 H (80-94) fL MCH 32.1 (28.0-34.0) pg MCHC 31.2 (30.0-36.0) g/dL RDW 16.3 H (12.1-15.1) % Plt Count 379 (130-400) 10^3/c mm MPV 9.8 (7.4-10.4) fL Neut % (Auto) 80.9 % Lymph % (Auto) 8.8 % [place] % (Auto) 6.4 % Eos % (Auto) 0.0 % Baso % (Auto) 0.2 % Neut # (Auto) 17.1 H (1.8-7.7) 10^3/u L Lymph # (Auto) 1.9 (0.8-4.8) 10^3/u L [place] # (Auto) 1.4 H (0.2-0.9) 10^3/u L Eos # (Auto) 0.0 (0.0-0.8) 10^3/u L Baso # (Auto) 0.1 (0.0-0.1) 10^3/u L Nucleated RBC % (a uto) 0.8 % Nucleated RBCs # 0.2 /100WBC Sodium 135 L (136-145) mmol/L Potassium 5.1 (3.5-5.1) mmol/L Chloride 88 L (98-107) mmol/L Carbon Dioxide 24 (22-29) mmol/L Anion Gap 28.1 H (5-19) BUN 101 H* D (8-23) mg/dL Creatinine 6.4 H* (0.7-1.2) mg/dL GFR Calculation 8.8 L (90-130) mL/min Glucose 285 H (65-115) mg/dL Calculated Osmolal ity 291 (285-295) mOsm/k g Lactate 2.6 H (0.5-2.2) mmol/L Calcium 7.9 L (8.5-10.5) mg/dL Total Bilirubin 0.2 (0.15-1.2) mg/dL AST 26 (0-40) U/L ALT 12 (0-41) U/L Alkaline Phosphata se 54 (40-130) IU/L Total Protein 5.8 L (6.6-8.7) g/dL Albumin 3.5 (3.5-5.2) g/dL Globulin 2.3 (1.3-4.6) g/dL Lipase 33 (13-60) U/L Vitamin B12 (232-1245) pg/mL Blood Type Rho(D) Type Antibody Screen Crossmatch 08/19/19 08/19/19 Range/Units 15:34 16:25 WBC (4.0-10.0) 10^3/ uL RBC (4.1-5.3) 10^6/u L Hgb (11.7-16.6) g/dL Hct (42.0-52.0) % MCV (80-94) fL MCH (28.0-34.0) pg MCHC (30.0-36.0) g/dL RDW (12.1-15.1) % Plt Count (130-400) 10^3/c mm MPV (7.4-10.4) fL Neut % (Auto) % Lymph % (Auto) % [place] % (Auto) % Eos % (Auto) % Baso % (Auto) % Neut # (Auto) (1.8-7.7) 10^3/u L Lymph # (Auto) (0.8-4.8) 10^3/u L [place] # (Auto) (0.2-0.9) 10^3/u L Eos # (Auto) (0.0-0.8) 10^3/u L Baso # (Auto) (0.0-0.1) 10^3/u L Nucleated RBC % (a uto) % Nucleated RBCs # /100WBC Sodium (136-145) mmol/L Potassium (3.5-5.1) mmol/L Chloride (98-107) mmol/L Carbon Dioxide (22-29) mmol/L Anion Gap (5-19) BUN (8-23) mg/dL Creatinine (0.7-1.2) mg/dL GFR Calculation (90-130) mL/min Glucose (65-115) mg/dL Calculated Osmolal ity (285-295) mOsm/k g Lactate (0.5-2.2) mmol/L Calcium (8.5-10.5) mg/dL Total Bilirubin (0.15-1.2) mg/dL AST (0-40) U/L ALT (0-41) U/L Alkaline Phosphata se (40-130) IU/L Total Protein (6.6-8.7) g/dL Albumin (3.5-5.2) g/dL Globulin (1.3-4.6) g/dL Lipase (13-60) U/L Vitamin B12 388 (232-1245) pg/mL Blood Type A Positive Rho(D) Type Positive Antibody Screen Negative Crossmatch See Detail Imaging Data^: CXR: Radiologist's impression: [place] [address] XRay Report Signed Patient: Helio Reynoso #: [id number] : 6Acct#:[id number] Age/Sex: 64 / MADM Date: 08/19/19 Loc: [facility]/Bed: Attending Dr: Ordering Provider/Ordering MD: Shubham Clark MD, [facility] Date of Service: 08/19/19 Procedure(s): XR chest 1V portable [id number] Accession Number(s): [id number] Report Number: [id number] PROCEDURE INFORMATION: Exam: XR Chest, 1 View Exam date and time: 08/19/2019 2:57 PM Age: 64 years old Clinical indication: Shortness of breath TECHNIQUE: Imaging protocol: XR of the chest Views: 1 view. COMPARISON: CR XR chest 1V portable [id number] 03/16/2019 5:25 PM FINDINGS: Tubes, catheters and devices: Dual lumen central venous catheter with the distal tips projecting over the right atrium. Lungs: There is scarring and/or atelectasis along the horizontal fissure. Pleural space: Unremarkable. No pleural effusion. No pneumothorax. Heart/Mediastinum: Unremarkable. No cardiomegaly. Bones/joints: Unremarkable. XR/XR chest 1V portable [id number] IMPRESSION: No acute findings. Dictated By:Razia Harman MD Signed By:Razia Harman MDSigned Date/Time:08/19/19 1606 DD/ 1604 CT Abd/Pel: Radiologist's impression: [address] [place] [address] CT Scan Report Signed Patient: Helio Reynoso #: [id number] : 6Acct#:[id number] Age/Sex: 64 / MADM Date: 08/19/19 Loc: [facility]/Bed: Attending Dr: Ordering Provider/Ordering MD: Shubham Clark MD, [facility] Date of Service: 08/19/19 Procedure(s): CT abdomen pelvis wo con [id number] Accession Number(s): [id number] Report Number: [id number] PROCEDURE INFORMATION: Exam: CT Abdomen And Pelvis Without Contrast Exam date and time: 08/19/2019 3:59 PM Age: 64 years old Clinical indication: Abdominal pain; Additional info: Diarrhea, leucocytosis, anemia TECHNIQUE: Imaging protocol: Computed tomography of the abdomen and pelvis without contrast. Radiation optimization: All CT scans at this facility use at least one of these dose optimization techniques: automated exposure control; mA and/or kV adjustment per patient size (includes targeted exams where dose is matched to clinical indication); or iterative reconstruction. COMPARISON: CT kidney stone [id number] 03/15/2019 4:01 AM RADIATION DOSE METRICS: Total DLP (mGy-cm): 1199.36 FINDINGS: Lungs: Multifocal small patchy opacities at the left lung base the larger of which measures 9 mm. Liver: Normal. No mass. Gallbladder and bile ducts: Cholelithiasis. Pancreas: Normal. No ductal dilation. Spleen: Normal. No splenomegaly. Adrenals: Normal. No mass. Kidneys and ureters: Normal. No hydronephrosis. Stomach and bowel: Large right lumbar hernia containing large and small bowel was seen the prior study as well. There is minimal inflammatory stranding in the herniated mesentery raising concern for strangulation. A normal appendix is identified in the right lumbar hernia. Appendix: See Stomach and bowel finding. Intraperitoneal space: See Stomach and bowel finding. Vasculature: Multivessel atherosclerotic disease which involves the coronary arteries. Lymph nodes: Unremarkable. No enlarged lymph nodes. Bladder: Unremarkable as visualized. Reproductive: There are calcifications in the prostate gland. Bones/joints: Unremarkable. No acute fracture. Soft tissues: Tiny fat containing umbilical hernia. CT/CT abdomen pelvis wo con [id number] IMPRESSION: 1. Large right lumbar hernia containing large and small bowel with mild associated mesenteric inflammatory stranding raising concern for inflammation or strangulation. 2. Multifocal small patchy opacities at the left lung base the larger of which measures 9 mm.For patients at low risk (minimal or absent history of smoking and of other known risk factors), recommend CT at 3-6 months, then consider CT at 18-24 months. For patients at high risk (history of smoking or of other known risk factors), recommend CT at 3-6 months, then CT at 18-24 months. (Tommy et al., Fleischner Society, 2017) 3. Multivessel atherosclerotic disease which involves the coronary arteries. 4. Cholelithiasis. Radiation Dose CTDIVOL = (mGy): DLP = 1199.36 (mGy-cm) Dictated By:Razia Harman MD Signed By:Razia Harmanigned Date/Time:08/19/191737 DD/ 36 EKG Data^: EKG 1: Attestation: I personally reviewed and interpreted this EKG as follows: EKG interpretation date: 08/19/19 EKG interpretation time: 14:52 Prior EKG tracings: not available for review Interpretation: Normal sinus rhythm. Heart rate [address] changes. Normal axis. EKG 2: Attestation: I personally reviewed and interpreted this EKG as follows: EKG interpretation date: 08/19/19 EKG interpretation time: 17:45 Prior EKG tracings: available for review Interpretation: Normal sinus rhythm. Heart rate 73 beats per minutes. Normal axis. No ST changes. Unchanged from earlier today. Discharge Plan Discharge Patient Disposition: Admitted As Inpatient Admit Provider: Rosita Madera Clinical Impression: Colitis, Anemia Condition: Stable Interventions: ED Discharge Assessment Last Done: 08/19/19 20:30 ED Charges Last Done: 08/19/19 20:30 Discharge Date/Time: 08/19/19 20:43 Coding Level of Care Code ED Weed Controller for Chg Fwd Exam Comprehensive
--- NOTE | 2019-08-19 16:51 | ECG_ITS ---
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 Measurements Intervals [place] Rate: 70 P: 93 [place]: 152 QRS: 40 QRSD: 86 T: 53 QT: 420 QTc: 454 Interpretive Statements SINUS RHYTHM Compared to ECG 03/15/2019 07:52:26 No significant changes Electronically Signed On 08-20-2019 15:10:46 CDT by Bryn Moses M.D. [id number] f
--- NOTE | 2019-08-19 17:40 | PC.NURSE ---
EKG done at 1740 and shown to ER doctor
--- NOTE | 2019-08-19 17:42 | PC.NURSE ---
Pt first unit of blood started with Dennise Correa RN. Consent signed prior to procedure. Pt verified with SULMA Bowden. Unit# [id number], BB [id number]. Pt started at 50ml per hour. See transfusion record for beginning VS.
[2019-08-19] MEDS: sodium chloride 0.9% (100 ml) 100 ML 50 ML (17:48)
--- NOTE | 2019-08-19 17:57 | PC.NURSE ---
Stayed with pt for first 15 min of blood administration. No transfusion reaction noted. Pt rate increased to 90ml/hr. 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
--- NOTE | 2019-08-19 19:04 | PC.NURSE ---
Report received from SULMA Bowden and care transferred to SULMA Flores
--- NOTE | 2019-08-19 19:12 | P.HP_ITS ---
Providers/Chief Complaint Primary Care Provider: Carla Ceballos MD Chief Complaint: SOB History of Present Illness Helio Reynoso is a 64 year old male who has a history of end-stage renal disease Wednesday hemodialysis dependent, hypothyroidism, hypertension, type 2 diabetes came in with chief complaint of profuse diarrhea. Patient is stating that after dialysis on Wednesday he started experiencing profuse diarrhea at home, he had to get up at night as well for his bowel movements. He noticed dark-colored stools which are new for him, he did not notice any fresh red bleed per rectum. He did not experience any fever, abdominal pain, chills, nausea or vomiting. In last 48 hours he has had 5-6 episodes of profuse diarrhea. He has not used any antibiotics recently, no chills, shortness of breath orthopnea PND. Diagnostics in the ER showed leukocytosis, high lactic acid, profuse drop in hemoglobin from 9-5.4, hemodynamically he was stable, afebrile, CT abdomen revealed lumbar hernia with inflammatory changes, CT scan and findings have been discussed with Dr. Steinberg twice, no signs of strangulation, on clinical exam there are no signs of peritonitis, patient is hemodynamically stable. In the ER patient has received Zosyn, first unit of PRBC and fluid resuscitation. Review of Systems Const: Reports: body aches, change in appetite and fatigue; Denies: fever(s) or chills Eyes: Denies: change in vision ENMT: Denies: throat pain Card: Denies: chest pain, palpitations, swelling of feet/ankles, lighthea dedness, pre-syncope, dyspnea on exertion or orthopnea Resp: Denies: dyspnea GI: Reports: nausea and diarrhea; Denies: abdominal pain, vomiting or constipation : Denies: flank pain Musc: Denies: neck pain Skin/Breast: Denies: rash Neuro: Denies: headache(s) Psych: Denies: anxiety Endo: Denies: polyuria Alfonso/Lymph: Denies: easy bruising All/Imm: Denies: urticaria Medications/Allergies Home Medications Medication Instructions Recorded Confirmed Last Taken Type aspirin 81 mg PO DAILY 03/15/19 08/19/19 08/19/19 History budesonide-formoterol [Symbicort] 2 puff INHALATION BID 03/15/19 08/19/19 08/19/19 History furosemide 80 mg PO BID 03/15/19 08/19/19 08/19/19 History levothyroxine 88 mcg PO DAILY 03/15/19 08/19/19 08/19/19 History metolazone 5 mg PO DAILY 03/15/19 08/19/19 08/19/19 History metoprolol succinate 200 mg PO DAILY 03/15/19 08/19/19 08/19/19 History omega-3 fatty acids-fish oil [Fish 1 cap PO DAILY 03/15/19 08/19/19 08/19/19 History Oil] Lantus U-100 Insulin 10 unit SUBCUT BID 30 Days #6 ml 03/17/19 08/19/19 08/18/19 Rx clonidine HCl 0.1 mg tablet 0.2 mg PO TID tab 04/13/19 08/19/19 08/19/19 History insulin aspart U-100 100 unit/mL 18 unit SUBCUT BID ml 04/13/19 08/19/19 08/18/19 History (3 mL) subcutaneous pen oxygen-air delivery systems #1 04/13/19 08/19/19 Unknown History amlodipine 10 mg tablet 10 mg PO DAILY tab 06/22/19 08/19/19 08/19/19 History ferric citrate [Auryxia] See Rx Instructions .ROUTE .COMPLEX 08/19/19 08/19/19 Unknown History lanthanum 1,500 mg PO TID 08/19/19 08/19/19 08/18/19 History vit B,O-MD-tozz-selen-vit D3-E 1 tab PO QPM 08/19/19 08/19/19 08/18/19 History [RenaPlex-D] Allergies Allergy/AdvReac Type Severity Reaction Status Date / Time No Known Allergies Allergy Verified 08/19/19 17:01 PFSH Acute PFSH: Medical History Blood transfusion abn reaction or complication, no procedure mishap Cataract disorder type 14 CKD (chronic kidney disease), stage IV COPD (chronic obstructive pulmonary disease) COPD (chronic obstructive pulmonary disease) Diastolic congestive heart failure ESRD (end stage renal disease) Hypothyroidism Insulin dependent type 2 diabetes mellitus Iron deficiency anemia Morbid obesity Nonalcoholic liver disease, chronic Surgical History History of open reduction and internal fixation (ORIF) procedure S/P dialysis catheter insertion Status post creation of arteriovenous fistula Family History Other CAD (coronary artery disease) Hyperlipidemia Hypertension Denies family history of Cancer Social History (Updated 08/19/19 @ 20:02 by Rosita Madera MD) Smoking and tobacco status: former smoker Alcohol intake: never Substance/Drug Use: never Household members: family and other Details: Lives with his mother History of recent travel: No Vitals/I&O/Wt Last Vital Signs Temp 97.6 F 08/19/19 18:10 Pulse 76 08/19/19 18:10 Resp 20 H 08/19/19 18:10 BP 113/50 08/19/19 18:10 Pulse Ox 94 08/19/19 18:10 08/19/19 08/19/19 08/19/19 06:59 14:59 22:59 Intake Total 0 / 0 Balance 0 / 0 Weight last 48 hrs Weight 92.986 kg Physical Exam Narrative: EXAM NARRATIVE: Head to toe examination Patient is laying supine in the bed without any active distress Saturating well on room air No active abdominal pain Hemodynamically stable S1, S2 no tachycardia or signs of heart failure Lungs are clear to auscultation with mild crackles at the bases no active respiratory distress Abdomen is distended, visceral obesity, right lower quadrant, lumbar hernia without focal signs of peritonitis, abdomen is soft, bowel sounds present, No active nausea or vomiting Lower extremity venous stasis dermatitis no active edema No sign of ischemia gangrene or ulcer EOMI, PERRLA, appropriate mood and affect Neurologically nonfocal exam Pertinent negatives: No active signs of peritonitis Data : 08/19/19 15:34 08/19/19 15:34 A&P Assessment and plan (1) Nonocclusive mesenteric ischemia: Status: Acute (2) Anemia: Status: Acute (3) Lumbar hernia: Status: Acute (4) Hypothyroidism: Status: Acute (5) Diastolic congestive heart failure: Status: Acute (6) COPD (chronic obstructive pulmonary disease): Status: Acute (7) DNR (do not resuscitate): Status: Acute Additional A&P Information Nonocclusive mesenteric ischemia acute profuse diarrhea Patient is endorsing dark-colored stool started on Wednesday No active fever, abdominal pain nausea or vomiting Leukocytosis, positive lactic acid and anemia without active signs of strangulation are concerning factors for nonocclusive mesenteric ischemia Is not a candidate of anticoagulation I believe these findings are secondary to hypoperfusion, I have discussed his findings and clinical exam with Dr. Steinberg as well who has recommended conservative management I will admit patient to ICU, start him on fluids, antibiotic and transfusion with 2 units, currently he is hemodynamically stable, will update Dr. Steinberg if his symptoms worsens. I am holding off on CTA abdomen for now. Acute on chronic macrocytic anemia Acute blood loss anemia with underlying anemia of chronic disease Etiology most likely is blood loss during dialysis versus new mesenteric nonocclusive ischemia Not a candidate to be on any kind of anticoagulation because of active anemia No active signs of peritonitis Check FOBT Transfuse 2 unit End-stage renal disease Hemodialysis dependent Wednesday No acute indication for dialysis Renal tele consult placed Diastolic congestive heart failure: No acute decompensation Hypothyroidism: P.o. meds currently on hold I have discussed goals of care with the patient he adamantly wants to stay DNR /DNI, discussed goals of care in front of ER nurse N.p.o. Dr. Steinberg has been consulted DVT prophylaxis not indicated: Will use SCDs for now Attestations Medical Necessity Statement*: Anticipating stay in the hospital cross more than 2 midnights continued ICU for management of nonocclusive mesenteric isc hemia, currently needing antibiotics and IV fluids along with blood transfusion Time Spent in Patient Care: (>than 50% of time spent in counselling and/or direct pt care on unit) . 60mins Coding Level of Care Code Acute Domestic Cleaner for [facility] Fwd Diagnoses Nonocclusive mesenteric ischemia K55.059 Anemia D64.9 Lumbar hernia K45.8 Hypothyroidism E03.9 Diastolic congestive heart failure I50.30 COPD (chronic obstructive pulmonary disease) J44.9 DNR (do not resuscitate) Z66
[2019-08-19] MEDS: piperacillin-tazobactam 3.375 GM in sodium chloride 0.9% (plus) 50 ML IV (19:39)
--- NOTE | 2019-08-19 20:59 | PC.NURSE ---
Patient arrived to ICU room 9 from ED. Patient A&O, resting quietly on 4L [place] which is his home setting. No acute signs of distress. Blood transfusion in progress. Hospitalists notified.
[2019-08-19] MEDS: sodium chloride 0.9% 1,000 ML 75 ML IV (21:30)
[2019-08-19 22:13] LABS: Vitamin B12 388 pg/mL (232-1245)
[2019-08-19] MEDS: ibuprofen 200 mg Tablet 400 MG PO (22:14)
[2019-08-20] VITALS (31 sets, daily range): BP systolic 112–168; BP diastolic 41–115; PULSE 70–87; RESP 9–27; TEMP 36.4–36.8; O2SAT 97–100
[2019-08-20 04:02] LABS: Basophils # 0.1 10^3/uL (0.0-0.1); Basophils % 0.5 %; Eosinophils # 0.2 10^3/uL (0.0-0.8); Eosinophils % 0.7 %; Lymphocytes # 1.9 10^3/uL (0.8-4.8); Lymphocytes % 7.5 %; Mean Corpuscular HGB Conc 31.6 g/dL (30.0-36.0); Mean Corpuscular Hemoglobin 29.9 pg (28.0-34.0); Mean Corpuscular Volume 94.7 fL (80-94); Monocytes # 1.5 10^3/uL (0.2-0.9); Monocytes % 5.8 %; Neutrophils # 21.6 10^3/uL (1.8-7.7); Neutrophils % 83.8 %; Nucleated Red Blood Cells # 0.1 /100WBC; Nucleated Red Blood Cells % 0.5 %; Platelet Count 379 10^3/cmm (130-400); Red Blood Count 2.64 10^6/uL (4.1-5.3); Red Cell Distribution Width 17.9 % (12.1-15.1); White Blood Count 25.8 10^3/uL (4.0-10.0)
[2019-08-20 04:19] LABS: Lactate (Lactic Acid level) 0.9 mmol/L (0.5-2.2)
[2019-08-20 04:25] LABS: Hemoglobin 7.9 g/dL (11.7-16.6)
[2019-08-20 06:21] LABS: Bilirubin Urine 1+ (NEGATIVE); Blood Urine 2+ (Negative); Glucose Urine UA Trace (Normal); Ketones Urine Negative (Negative); Nitrate Urine Negative (Negative); Protein Urine 1+ (Negative); Urine Appearance Cloudy (CLEAR); Urine Color Yellow (Yellow); Urobilinogen Urine Norm (Negative); pH Urine 5 (5-7)
[2019-08-20 06:22] LABS: Add Urine Microscopic? YES; Leukocyte Esterase Urine Negative (Negative)
[2019-08-20 06:23] LABS: Bacteria Urine 1+; Mucus Urine TRACE; RBC Urine 0-4 /hpf (0-2); Squamous Epithelial Cell Urine 0-4 (0-5)
[2019-08-20 06:24] LABS: Add Urine Culture? No; Amorphous Sediment Urine 1+
[2019-08-20 07:00] LABS: Anion Gap 29.6 (5-19); Calcium 8.1 mg/dL (8.5-10.5); Carbon Dioxide 21 mmol/L (22-29); Chloride 92 mmol/L (98-107); Glomerular Filtration Rate 8.1 mL/min (90-130); Glucose 141 mg/dL (65-115); Potassium 4.6 mmol/L (3.5-5.1); Sodium 138 mmol/L (136-145)
[2019-08-20 07:15] LABS: Osmolality Calculated 290 mOsm/kg (285-295)
[2019-08-20 07:16] LABS: Blood Urea Nitrogen 120 mg/dL (8-23)
[2019-08-20] MEDS: piperacillin-tazobactam 3.375 GM in sodium chloride 0.9% (plus) 50 ML IV ×2 (08:36→20:42)
[2019-08-20] MEDS: pantoprazole 40 MG in sodium chloride 0.9% (plus) 100 ML 20 MG IV ×4 (08:36→23:33)
[2019-08-20] MEDS: levothyroxine 88 mcg Tablet PO (08:36)
[2019-08-20] MEDS: sodium chloride 0.9% 1,000 ML 75 ML IV (08:37)
[2019-08-20 08:50] LABS: Hematocrit 24.3 % (42.0-52.0); Hemoglobin 7.8 g/dL (11.7-16.6)
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
[2019-08-20] MEDS: insulin glargine 100 units/1 mL 5 UNIT SUBCUT (09:04)
[2019-08-20 11:13] LABS: Glucose Point of Care 150 mg/dL (70-110)
[2019-08-20] MEDS: vancomycin 1,000 MG in sodium chloride 0.9% 250 ML 250 MG IV (11:22)
--- NOTE | 2019-08-20 12:06 | PM.PN ---
Subjective Subjective: Interval history: History and physical reviewed in detail. Patient reported no significant abdominal pain. He denies any nausea. While he was in the room he had a large bowel movement of black tarry stool. There was no evidence of bright red blood. Medications: Reviewed: Yes Vitals/I&O/Wt Last Vital Signs Temp 98.2 F 08/20/19 04:00 Pulse 76 08/20/19 11:16 Resp 16 08/20/19 09:01 BP 144/56 08/20/19 06:00 Pulse Ox 97 08/20/19 11:16 08/19/19 08/20/19 08/20/19 22:59 06:59 14:59 Intake Total 400 / 400 350 / 750 833.75 / 833.75 Output Total 50 / 50 Balance 400 / 400 300 / 700 833.75 / 833.75 Weight last 48 hrs Weight 92.986 kg Physical Exam Narrative: EXAM NARRATIVE: General exam is a conversive patient, reporting no pain Cardiovascular regular rate and rhythm without murmur Lungs clear Abdomen is soft, positive bowel sounds, obese Extremities no cyanosis clubbing Data : 08/20/19 08:41 08/20/19 03:27 Micro: Microbiology 08/20/19 10:00 Blood Culture - Preliminary Blood SPECIMEN COLLECTED 08/20/19 08:41 Blood Culture - Preliminary Blood SPECIMEN COLLECTED 08/19/19 16:36 C.difficile Toxin B Gene (PCR) - Final Stool A&P Assessment and plan (1) Nonocclusive mesenteric ischemia: Although possible, less likely than upper GI bleed from gastric or duodenal source. Lactate has improved. He has no abdominal pain. Surgery has evaluated as well. Initiate Protonix drip Placed on Zosyn on admission. Continue currently. Status: Acute (2) Anemia: Consistent with upper GI bleeding. Continue to monitor hemoglobin serially. Transfuse as needed. He has already received 2 units packed red blood cells during this hospital course. Status: Acute (3) Lumbar hernia: Surgery evaluating. Nontender currently. Status: Acute (4) Hypothyroidism: Status: Acute (5) Diastolic congestive heart failure: Compensated Status: Acute (6) COPD (chronic obstructive pulmonary disease): No evidence of exacerbation Status: Acute (7) DNR (do not resuscitate): Status: Acute Additional A&P Information Marked leukocytosis. Cannot rule out infection on presentation even though no fever was present. Vancomycin per pharmacy, culture blood as well as culture from dialysis catheter. End-stage renal disease on hemodialysis. Nephrology consulted. Hypothyroidism Hypertension. Holding some blood pressure medicine secondary to bleeding. Will initiate metoprolol lower dose to prevent withdrawal and increase as tolerated. SCDs for DVT prophylaxis. Anticoagulation held secondary to GI bleeding Attestations Medical Necessity Statement*: Needs continued hospital stay for evaluation of upper GI bleeding Critical Care Time: 34 minutes spent in care near bedside for evaluation of patient, discussion with nursing and specialists, review of multiple laboratories, and this patient with life-threatening illness, requiring transfusion. Prognosis guarded. Coding Level of Care Code Acute Auto Body Estimator for [facility] Fwd Diagnoses Nonocclusive mesenteric ischemia K55.059 Anemia D64.9 Lumbar hernia K45.8 Hypothyroidism E03.9 Diastolic congestive heart failure I50.30 COPD (chronic obstructive pulmonary disease) J44.9 DNR (do not resuscitate) Z66
[2019-08-20] MEDS: acetaminophen 325 mg Tablet 650 MG PO (12:41)
[2019-08-20 14:22] LABS: Add Urine Microscopic? YES; Bilirubin Urine Neg (NEGATIVE); Blood Urine 2+ (Negative); Glucose Urine UA Norm (Normal); Ketones Urine Negative (Negative); Leukocyte Esterase Urine Negative (Negative); Nitrate Urine Negative (Negative); Protein Urine 1+ (Negative); Urine Appearance Clear (CLEAR); Urine Color Yellow (Yellow); Urobilinogen Urine Norm (Negative); pH Urine 5 (5-7)
[2019-08-20 14:29] LABS: RBC Urine 0-4 /hpf (0-2); Squamous Epithelial Cell Urine RARE (0-5); WBC Urine 0-4 /hpf (0-5)
[2019-08-20 14:31] LABS: Bacteria Urine 1+
[2019-08-20 14:32] LABS: Add Urine Culture? No; Amorphous Sediment Urine TRACE
[2019-08-20] MEDS: metoprolol tartrate 25 mg Tablet 12.5 MG PO (16:37)
[2019-08-20 17:10] LABS: Hematocrit 23.6 % (42.0-52.0); Hemoglobin 7.6 g/dL (11.7-16.6)
--- NOTE | 2019-08-20 18:38 | PM.CONSULT ---
Providers/Reason For Consult Consulting Physican/Specialty*: Podaralla/Telenephrology Reason for Consult*: ESRD Management and dialysis need Attending Physician: Denny Koenig MD Primary Care Provider: Carla Ceballos MD History of Present Illness History of Present Illness Helio Reynoso is a 64 year old male with h/o ESRD presented with diarrhea and black colored stools, so admitted for further work up. No nausea or vomiting. Last dialysis was on wednesday. No chest pain or shortness of breath Review of Systems Card: Denies: chest pain or dyspnea on exertion Resp: Denies: dyspnea or productive cough GI: Reports: diarrhea and melena; Denies: abdominal pain, nausea or vomiting Skin/Breast: Denies: rash Neuro: Denies: weakness in extremities Meds/Allergies Home Medications and Allergies Home Medications Medication Instructions Recorded Confirmed Last Taken Type aspirin 81 mg PO DAILY 03/15/19 08/19/19 08/19/19 History budesonide-formoterol [Symbicort] 2 puff INHALATION BID 03/15/19 08/19/19 08/19/19 History furosemide 80 mg PO BID 03/15/19 08/19/19 08/19/19 History levothyroxine 88 mcg PO DAILY 03/15/19 08/19/19 08/19/19 History metolazone 5 mg PO DAILY 03/15/19 08/19/19 08/19/19 History metoprolol succinate 200 mg PO DAILY 03/15/19 08/19/19 08/19/19 History omega-3 fatty acids-fish oil [Fish 1 cap PO DAILY 03/15/19 08/19/19 08/19/19 History Oil] Lantus U-100 Insulin 10 unit SUBCUT BID 30 Days #6 ml 03/17/19 08/19/19 08/18/19 Rx clonidine HCl 0.1 mg tablet 0.2 mg PO TID tab 04/13/19 08/19/19 08/19/19 History insulin aspart U-100 100 unit/mL 18 unit SUBCUT BID ml 04/13/19 08/19/19 08/18/19 History (3 mL) subcutaneous pen oxygen-air delivery systems #1 04/13/19 08/19/19 Unknown History amlodipine 10 mg tablet 10 mg PO DAILY tab 04/08/19/19 08/19/19 History ferric citrate [Auryxia] See Rx Instructions .ROUTE .COMPLEX 08/19/19 08/19/19 Unknown History lanthanum 1,500 mg PO TID 08/19/19 08/19/19 08/18/19 History vit B,J-UG-jqbs-selen-vit D3-E 1 tab PO QPM 08/19/19 08/19/19 08/18/19 History [RenaPlex-D] Allergies Allergy/AdvReac Type Severity Reaction Status Date / Time No Known Allergies Allergy Verified 08/19/19 17:01 Current Medications Current Medications Generic Name Dose Route Start Last Admin Trade Name Freq PRN Reason Stop Dose Admin Acetaminophen 650 mg 08/20/19 12:26 08/20/19 12:41 Tylenol PO 650 mg Q6H PRN Administration MILD PAIN Piperacillin Sod/Tazobactam 50 mls @ 12.5 mls/hr 08/20/19 08:00 08/20/19 12:41 Sod 3.375 gm/ Sodium Chloride IV Infused Q12H LENNIE Infusion Protocol As Directed Pantoprazole Sodium 40 mg/ 100 mls @ 20 mls/hr 08/20/19 08:00 08/20/19 16:36 Sodium Chloride IV 20 mls/hr Q5H LENNIE Administration Sodium Chloride 1,000 mls @ 30 mls/hr 08/20/19 08:30 08/20/19 11:21 Sodium Chloride 0.9% IV Not Given .Q24H LENNIE Insulin Glargine 5 unit 08/20/19 09:00 08/20/19 09:04 Lantus SUBCUT 5 unit DAILY LENNIE Administration Levothyroxine Sodium 88 mcg 08/20/19 09:00 08/20/19 08:36 Synthroid PO 88 mcg DAILY LENNIE Administration Metoprolol Tartrate 12.5 mg 08/20/19 18:00 08/20/19 16:37 Lopressor PO 12.5 mg BID LENNIE Administration Fluticasone/Salmeterol 1 puff 08/20/19 08:15 08/20/19 09:00 Advair Diskus 250-50 INHALATION 1 puff BID.RESPIRATORY LENNIE Administration PFSH Acute PFSH: Medical History (Updated 08/20/19 @ 18:49 by Barrett Wright) Blood transfusion abn reaction or complication, no procedure mishap Cataract disorder type 14 COPD (chronic obstructive pulmonary disease) COPD (chronic obstructive pulmonary disease) Diastolic congestive heart failure ESRD (end stage renal disease) Hypertension Hypothyroidism Insulin dependent type 2 diabetes mellitus Iron deficiency anemia Morbid obesity Nonalcoholic liver disease, chronic Secondary hyperparathyroidism Surgical History History of open reduction and internal fixation (ORIF) procedure S/P dialysis catheter insertion Status post creation of arteriovenous fistula Family History Other CAD (coronary artery disease) Hyperlipidemia Hypertension Denies family history of Cancer Social History Smoking and tobacco status: former smoker Alcohol intake: never Substance/Drug Use: never Household members: family and other Details: Lives with his mother History of recent travel: No Vitals/I&O/Wt Last Vital Signs Temp 97.8 F 08/20/19 14:00 Pulse 71 08/20/19 18:00 Resp 16 08/20/19 18:00 BP 141/41 08/20/19 18:00 Pulse Ox 100 08/20/19 18:00 08/20/19 08/20/19 08/20/19 06:59 14:59 22:59 Intake Total 350 / 750 1015.083 / 1015.083 103.667 / 1118.750 Output Total 50 / 50 803 / 803 Balance 300 / 700 212.083 / 212.083 103.667 / 315.750 Weight last 48 hrs Weight 92.986 kg Physical Exam Narrative: EXAM NARRATIVE: Pt sleepy, not in distress Resp: AUSCULTATION: crackles Cardio: COMMON NORMALS: S1 normal heart sound present and S2 normal heart sound present HEART SOUNDS: S1 normal heart sound present and S2 normal heart sound present GI: AUSCULTATION: Yes normoactive bowel sounds Extremity: GENERAL: Yes edema Skin: COMMON NORMALS: no rashes or lesions noted GENERAL SKIN EXAM: no rashes or lesions noted Data Micro: Micro: Microbiology 08/20/19 10:00 Blood Culture - Pr eliminary Blood SPECIMEN [facility] SHERIE 08/20/19 08:41 Blood Culture - Pr eliminary Blood SPECIMEN [facility] 08/19/19 16:36 C.difficile Toxin B Gene (PCR) - Daniel crandall Stool A&P Assessment and plan (1) ESRD (end stage renal disease): No acute indication for dialysis today. Will plan on doing hemodialysis tommorrow Status: Acute (2) Anemia: Transfuse as needed due to active GI bleed Status: Acute Qualifiers: Anemia type: due to chronic kidney disease Chronic kidney disease stage: on chronic dialysis Qualified Code(s): N18.6 - End stage renal disease; D63.1 - Anemia in chronic kidney disease; Z99.2 - Dependence on renal dialysis (3) Hypertension: Monitor BP closely Status: Acute (4) Secondary hyperparathyroidism: Continue phos binders( lanthanum) Status: Acute Consult Attestations Medical Necessity Statement: GI bleed Coding Level of Care Code Acute Marketing Outreach Coordinator for [facility] Fwd Diagnoses ESRD (end stage renal disease) N18.6 Anemia N18.6; D63.1; Z99.2 Anemia type: due to chronic kidney disease Chronic kidney disease stage: on chronic dialysis Hypertension I10 Secondary hyperparathyroidism N25.81
--- NOTE | 2019-08-20 23:55 | PC.NURSE ---
Patient Transfer: Patient transferred to [facility]-1. Report given to Luisa RN. Transferred on 4L/NC. resting comfortable in bed. No further questions or concerns.
[2019-08-21] VITALS (23 sets, daily range): BP systolic 91–185; BP diastolic 54–103; PULSE 62–94; RESP 16–22; TEMP 36.2–36.8; O2SAT 4–100
[2019-08-21] MEDS: acetaminophen 325 mg Tablet 650 MG PO ×3 (00:15→22:21)
--- NOTE | 2019-08-21 00:17 | PC.NURSE ---
Pt brought to floor from icu. Placed on tele sr at 89. No complaints of pain. oriented to room call button.
[2019-08-21 03:37] LABS: Basophils # 0.1 10^3/uL (0.0-0.1); Basophils % 0.5 %; Eosinophils # 0.4 10^3/uL (0.0-0.8); Eosinophils % 2.2 %; Hematocrit 21.4 % (42.0-52.0); Hemoglobin 6.8 g/dL (11.7-16.6); Lymphocytes # 1.9 10^3/uL (0.8-4.8); Lymphocytes % 9.3 %; Mean Corpuscular HGB Conc 31.8 g/dL (30.0-36.0); Mean Corpuscular Hemoglobin 30.5 pg (28.0-34.0); Mean Platelet Volume 9.8 fL (7.4-10.4); Monocytes # 1.2 10^3/uL (0.2-0.9); Monocytes % 5.7 %; Neutrophils # 16.5 10^3/uL (1.8-7.7); Neutrophils % 80.7 %; Nucleated Red Blood Cells # 0.1 /100WBC; Nucleated Red Blood Cells % 0.5 %; Platelet Count 358 10^3/cmm (130-400); Red Blood Count 2.23 10^6/uL (4.1-5.3); Red Cell Distribution Width 19.1 % (12.1-15.1); White Blood Count 20.4 10^3/uL (4.0-10.0)
[2019-08-21 04:00] LABS: Alanine Aminotransferase 18 U/L (0-41); Albumin Level 2.9 g/dL (3.5-5.2); Alkaline Phosphatase 61 IU/L (40-130); Anion Gap 28.3 (5-19); Aspartate Amino Transferase 27 U/L (0-40); Calcium 8.2 mg/dL (8.5-10.5); Carbon Dioxide 18 mmol/L (22-29); Chloride 97 mmol/L (98-107); Glomerular Filtration Rate 6.9 mL/min (90-130); Glucose 112 mg/dL (65-115); Magnesium 2.2 mg/dL (1.7-2.3); Phosphorus 5.7 mg/dL (2.5-4.5); Potassium 4.3 mmol/L (3.5-5.1); Sodium 139 mmol/L (136-145); Total Bilirubin 0.2 mg/dL (0.15-1.2); Total Protein 5.9 g/dL (6.6-8.7)
[2019-08-21 04:09] LABS: Blood Urea Nitrogen 116 mg/dL (8-23); Osmolality Calculated 291 mOsm/kg (285-295)
[2019-08-21] MEDS: pantoprazole 40 MG in sodium chloride 0.9% (plus) 100 ML 20 MG IV (04:49)
--- NOTE | 2019-08-21 07:54 | P.ANESASSM_ITS ---
Pre-Anesthetic Assessment Pre-Anesthetic Assessment: Height/Weight: Height 1.73 m Weight 92.986 kg Temp Pulse Resp BP Pulse Ox 97.4 F L 81 18 150/71 93 08/21/19 04:00 08/21/19 07:31 08/21/19 07:31 08/21/19 04:00 08/21/19 07:31 Preop Diagnosis: GI FISTULA Proposed Procedure: Operation Date: 08/21/19 07:30 Proposed Procedures p EGD(Not Applicable) - Giovanni Steinberg MD Was Beta Veronica taken within 24 hours: Yes Last intake: Intake Last Liquid Date 08/20/19 Last Liquid Time 23:45 Social: Social History: Tobacco (quit 5 yrs ago) Exam: Pre-Anes Outpt Exam: alert, oriented x 3, clear to auscultation bilaterally (wheezing) and regular rate & rhythm Airway: Submandibular: WNL Cervical ROM: Other (limited) MP: 4 (small mouth ) Dentition: Chipped History/ROS: No significant history except as noted Pulmonary: Pulmonary: COPD (4 liters O2 all the time), REYEZ, Sleep apnea (CPAP) and SOB CV/HEM: CV/HEM: Anemia and HTN : Comments: ESRD, dialysis on Wednesday Hepatic: Hepatic: None reported GI: GI: None reported Metabolic: Metabolic: DM, Hyperlipidemia and Thyroid Musc/skel: Musc/skel: OA/DJD (hip pain) Neuropsych: Neuropsych: None reported Anesthetic Plan: ASA status: 3 Anesthesia: Anesthesia Evaluation and MAC Risk of > 500 ml blood loss (7ml/kg in children): No Meds/Allergies Current Medications: Current Medications Generic Name Dose Route Start Last Admin Trade Name Freq PRN Reason Stop Dose Admin Acetaminophen 650 mg 08/20/19 12:26 08/21/19 00:15 Tylenol PO 650 mg Q6H PRN Administration MILD PAIN Piperacillin Sod/T azobactam 50 mls @ 12.5 mls /hr 08/20/19 08:00 08/20/19 20:42 Sod 3.375 gm/ So dium Chloride IV 12.5 mls/hr Q12H LENNIE Administration Protocol As Directed Pantoprazole Sodiu m 40 mg/ 100 mls @ 20 mls/ hr 08/20/19 08:00 08/21/19 04:49 Sodium Chloride IV 20 mls/hr Q5H LENNIE Administration Sodium Chloride 1,000 mls @ 30 ml s/hr 08/20/19 08:30 08/20/19 11:21 Sodium Chloride 0.9% IV Not Given .Q24H LENNIE Insulin Glargine 5 unit 08/20/19 09:00 08/20/19 09:04 Lantus SUBCUT 5 unit DAILY LENNIE Administration Levothyroxine Sodi um 88 mcg 08/20/19 09:00 08/20/19 08:36 Synthroid PO 88 mcg DAILY LENNIE Administration Metoprolol Tartrat e 12.5 mg 08/20/19 18:00 08/20/19 16:37 Lopressor PO 12.5 mg BID LENNIE Administration Fluticasone/Salmet gwendolyn 1 puff 08/20/19 08:15 08/21/19 07:29 Advair Diskus 25 0-50 INHALATION 1 puff BID.RESPIRATORY S CH Administration PFSH Anesthesia PFSH: Medical History (Updated 08/20/19 @ 18:49 by Barrett Wright) Blood transfusion abn reaction or complication, no procedure mishap Cataract disorder type 14 COPD (chronic obstructive pulmonary disease) COPD (chronic obstructive pulmonary disease) Diastolic congestive heart failure ESRD (end stage renal disease) Hypertension Hypothyroidism Insulin dependent type 2 diabetes mellitus Iron deficiency anemia Morbid obesity Nonalcoholic liver disease, chronic Secondary hyperparathyroidism Surgical History History of open reduction and internal fixation (ORIF) procedure S/P dialysis catheter insertion Status post creation of arteriovenous fistula Family History Other CAD (coronary artery disease) Hyperlipidemia Hypertension Denies family history of Cancer Social History Smoking and tobacco status: former smoker Alcohol intake: never Substance/Drug Use: never Household members: family and other Details: Lives with his mother History of recent travel: No Data Anesthesia CBC & Chem 7: 08/21/19 03:05 08/21/19 03:05 Other Labs: Laboratory Results - last 48 hr 08/19/19 08/19/19 08/19/19 15:34 15:34 15:34 WBC 21.1 H RBC 1.68 L Hgb 5.4 L* Hct 17.3 L* MCV 103.0 H MCH 32.1 MCHC 31.2 RDW 16.3 H Plt Count 379 MPV 9.8 Neut % (Auto) 80.9 Lymph % (Auto) 8.8 Cooper % (Auto) 6.4 Eos % (Auto) 0.0 Baso % (Auto) 0.2 Neut # (Auto) 17.1 H Lymph # (Auto) 1.9 Cooper # (Auto) 1.4 H Eos # (Auto) 0.0 Baso # (Auto) 0.1 Nucleated RBC % (auto) 0.8 Nucleated RBCs # 0.2 Sodium 135 L Potassium 5.1 Chloride 88 L Carbon Dioxide 24 Anion Gap 28.1 H BUN 101 H* D Creatinine 6.4 H* GFR Calculation 8.8 L Glucose 285 H POC Glucose Calculated Osmolality 291 Lactate 2.6 H Calcium 7.9 L Phosphorus Magnesium Total Bilirubin 0.2 AST 26 ALT 12 Alkaline Phosphatase 54 Total Protein 5.8 L Albumin 3.5 Globulin 2.3 Lipase 33 Vitamin B12 Urine Color Urine Appearance Urine pH Ur Specific Reserve Urine Protein Urine Glucose (UA) Urine Ketones Urine Blood Urine Nitrate Urine Bilirubin Urine Urobilinogen Ur Leukocyte Esterase Urine RBC Urine WBC Ur Squamous Epith Cells Amorphous Sediment Urine Bacteria Urine Mucus Blood Type Rho(D) Type Antibody Screen Crossmatch 08/19/19 08/19/19 08/20/19 15:34 16:25 03:27 WBC 25.8 H RBC 2.64 L Hgb 7.9 L D Hct 25.0 L D MCV 94.7 H D MCH 29.9 MCHC 31.6 RDW 17.9 H Plt Count 379 MPV 10.0 Neut % (Auto) 83.8 Lymph % (Auto) 7.5 Cooper % (Auto) 5.8 Eos % (Auto) 0.7 Baso % (Auto) 0.5 Neut # (Auto) 21.6 H Lymph # (Auto) 1.9 Cooper # (Auto) 1.5 H Eos # (Auto) 0.2 Baso # (Auto) 0.1 Nucleated RBC % (auto) 0.5 Nucleated RBCs # 0.1 Sodium Potassium Chloride Carbon Dioxide Anion Gap BUN Creatinine GFR Calculation Glucose POC Glucose Calculated Osmolality Lactate Calcium Phosphorus Magnesium Total Bilirubin AST ALT Alkaline Phosphatase Total Protein Albumin Globulin Lipase Vitamin B12 388 Urine Color Urine Appearance Urine pH Ur Specific Reserve Urine Protein Urine Glucose (UA) Urine Ketones Urine Blood Urine Nitrate Urine Bilirubin Urine Urobilinogen Ur Leukocyte Esterase Urine RBC Urine WBC Ur Squamous Epith Cells Amorphous Sediment Urine Bacteria Urine Mucus Blood Type A Positive Rho(D) Type Positive Antibody Screen Negative Crossmatch See Detail 08/20/19 08/20/19 08/20/19 03:27 03:27 04:30 WBC RBC Hgb Hct MCV MCH MCHC RDW Plt Count MPV Neut % (Auto) Lymph % (Auto) Cooper % (Auto) Eos % (Auto) Baso % (Auto) Neut # (Auto) Lymph # (Auto) Cooper # (Auto) Eos # (Auto) Baso # (Auto) Nucleated RBC % (auto) Nucleated RBCs # Sodium 138 Potassium 4.6 Chloride 92 L Carbon Dioxide 21 L Anion Gap 29.6 H BUN 120 H* Creatinine 6.9 H* GFR Calculation 8.1 L Glucose 141 H POC Glucose Calculated Osmolality 290 Lactate 0.9 Calcium 8.1 L Phosphorus Magnesium Total Bilirubin AST ALT Alkaline Phosphatase Total Protein Albumin Globulin Lipase Vitamin B12 Urine Color Yellow Urine Appearance Cloudy Urine pH 5 Ur Specific Reserve 1.010 Urine Protein 1+ H Urine Glucose (UA) Trace H Urine Ketones Negative Urine Blood 2+ H Urine Nitrate Negative Urine Bilirubin 1+ H Urine Urobilinogen Norm Ur Leukocyte Esterase Negative Urine RBC 0-4 H Urine WBC 5-10 H Ur Squamous Epith Cells 0-4 H Amorphous Sediment 1+ Urine Bacteria 1+ H Urine Mucus Trace Blood Type Rho(D) Type Antibody Screen Crossmatch 08/20/19 08/20/19 08/20/19 08:41 11:00 11:05 WBC RBC Hgb 7.8 L Hct 24.3 L MCV MCH MCHC RDW Plt Count MPV Neut % (Auto) Lymph % (Auto) Cooper % (Auto) Eos % (Auto) Baso % (Auto) Neut # (Auto) Lymph # (Auto) Cooper # (Auto) Eos # (Auto) Baso # (Auto) Nucleated RBC % (auto) Nucleated RBCs # Sodium Potassium Chloride Carbon Dioxide Anion Gap BUN Creatinine GFR Calculation Glucose POC Glucose 150 Calculated Osmolality Lactate Calcium Phosphorus Magnesium Total Bilirubin AST ALT Alkaline Phosphatase Total Protein Albumin Globulin Lipase Vitamin B12 Urine Color Yellow Urine Appearance Clear Urine pH 5 Ur Specific Reserve 1.010 Urine Protein 1+ H Urine Glucose (UA) Norm Urine Ketones Negative Urine Blood 2+ H Urine Nitrate Negative Urine Bilirubin Neg Urine Urobilinogen Norm Ur Leukocyte Esterase Negative Urine RBC 0-4 H Urine WBC 0-4 H Ur Squamous Epith Cells Rare Amorphous Sediment Trace Urine Bacteria 1+ H Urine Mucus Blood Type Rho(D) Type Antibody Screen Crossmatch 08/20/19 08/21/19 08/21/19 17:05 03:05 03:05 WBC 20.4 H RBC 2.23 L Hgb 7.6 L 6.8 L Hct 23.6 L 21.4 L MCV 96.0 H MCH 30.5 MCHC 31.8 RDW 19.1 H Plt Count 358 MPV 9.8 Neut % (Auto) 80.7 Lymph % (Auto) 9.3 Cooper % (Auto) 5.7 Eos % (Auto) 2.2 Baso % (Auto) 0.5 Neut # (Auto) 16.5 H Lymph # (Auto) 1.9 Cooper # (Auto) 1.2 H Eos # (Auto) 0.4 Baso # (Auto) 0.1 Nucleated RBC % (auto) 0.5 Nucleated RBCs # 0.1 Sodium 139 Potassium 4.3 Chloride 97 L Carbon Dioxide 18 L Anion Gap 28.3 H BUN 116 H* Creatinine 7.9 H* GFR Calculation 6.9 L Glucose 112 POC Glucose Calculated Osmolality 291 Lactate Calcium 8.2 L Phosphorus 5.7 H Magnesium 2.2 Total Bilirubin 0.2 AST 27 ALT 18 Alkaline Phosphatase 61 Total Protein 5.9 L Albumin 2.9 L Globulin 3.0 Lipase Vitamin B12 Urine Color Urine Appearance Urine pH Ur Specific Reserve Urine Protein Urine Glucose (UA) Urine Ketones Urine Blood Urine Nitrate Urine Bilirubin Urine Urobilinogen Ur Leukocyte Esterase Urine RBC Urine WBC Ur Squamous Epith Cells Amorphous Sediment Urine Bacteria Urine Mucus Blood Type Rho(D) Type Antibody Screen Crossmatch Micro: Microbiology 08/19/19 20:00 Occult Blood (FIT) - Final Stool 08/20/19 10:00 Blood Culture - Preliminary Blood SPECIMEN COLLECTED 08/20/19 08:41 Blood Culture - Preliminary Blood SPECIMEN COLLECTED Cardiac Studies: No Data to Display
--- NOTE | 2019-08-21 07:57 | PC.NURSE ---
PT OFF FLOOR IN GI LAB FOR EGD PROCEDURE @ 8233
--- NOTE | 2019-08-21 07:57 | PM.PN ---
Subjective Subjective: Interval history: No issues overnight Hemoglobin is down to 6.8 Vitals/I&O/Wt Last Vital Signs Temp 97.4 F L 08/21/19 04:00 Pulse 81 08/21/19 07:31 Resp 18 08/21/19 07:31 BP 150/71 08/21/19 04:00 Pulse Ox 93 08/21/19 07:31 08/20/19 08/21/19 08/21/19 22:59 06:59 14:59 Intake Total 203.667 / 1318.750 100 / 1318.750 Output Total 200 / 1003 Balance 203.667 / 315.750 -100 / 315.750 Weight last 48 hrs Weight 205 lb Physical Exam Narrative: EXAM NARRATIVE: Abdomen: Soft Data : 08/21/19 03:05 08/21/19 03:05 Micro: Microbiology 08/19/19 20:00 Occult Blood (FIT) - Final Stool 08/20/19 10:00 Blood Culture - Preliminary Blood SPECIMEN COLLECTED 08/20/19 08:41 Blood Culture - Preliminary Blood SPECIMEN COLLECTED A&P Assessment and plan (1) Anemia: Plan for EGD under MAC today Procedure, risks, benefits and alternatives have been discussed with the patient who wishes to proceed with surgery. Status: Acute Qualifiers: Anemia type: due to chronic kidney disease Chronic kidney disease stage: on chronic dialysis Qualified Code(s): N18.6 - End stage renal disease; D63.1 - Anemia in chronic kidney disease; Z99.2 - Dependence on renal dialysis Attestations Medical Necessity Statement*: GI bleed Coding Level of Care Code Acute Inter Fold Roll Cutter for [facility] Fwd Diagnoses Anemia N18.6; D63.1; Z99.2 Anemia type: due to chronic kidney disease Chronic kidney disease stage: on chronic dialysis
[2019-08-21 08:12] LABS: Glucose Point of Care 123 mg/dL (70-110)
--- NOTE | 2019-08-21 09:59 | ANE.PACU2 ---
Inpatient post-anesthesia follow up: Airway intact: Yes Vital signs: Temperature 97.1 F Pulse Rate 86 Respiratory Rate 20 Blood Pressure 161/63 Pulse Oximetry 90 Oxygen Delivery Me thod [ Nasal Cannula Current Rate & Del nadja] Oxygen Delivery Me thod Nasal Cannula Oxygen Flow Rate [ Current Rate 3.5 & Delivery] Oxygen Flow Rate 4 Fraction of Inspir ed Oxygen Hydration adequate: Yes Nausea and vomiting: No Mental status: Baseline
[2019-08-21] MEDS: cetylpyridinium Lozenge 1 EACH MUCOUS MEM (10:10)
[2019-08-21] MEDS: sodium chloride 0.9% 1,000 ML 30 ML IV (10:14)
--- NOTE | 2019-08-21 13:59 | PM.PN ---
Subjective Subjective: Interval history: Feels ok on dialysis S/p EGD; report pending Hemodynamics stable Some pain in the hips Medications: Reviewed: Yes Vitals/I&O/Wt Last Vital Signs Temp 98.3 F 08/21/19 11:08 Pulse 94 08/21/19 11:08 Resp 22 H 08/21/19 11:08 BP 178/60 08/21/19 11:08 Pulse Ox 92 08/21/19 11:08 08/20/19 08/21/19 08/21/19 22:59 06:59 14:59 Intake Total 203.667 / 1218.750 100 / 1318.750 480 / 480 Output Total 200 / 1003 0 / 0 Balance 203.667 / 415.750 -100 / 315.750 480 / 480 Weight last 48 hrs Weight 92.986 kg Physical Exam Narrative: EXAM NARRATIVE: comfortable Resp: AUSCULTATION: crackles Cardio: COMMON NORMALS: S1 normal heart sound present and S2 normal heart sound present HEART SOUNDS: S1 normal heart sound present and S2 normal heart sound present GI: AUSCULTATION: Yes normoactive bowel sounds Extremity: GENERAL: Yes edema Skin: COMMON NORMALS: no rashes or lesions noted GENERAL SKIN EXAM: no rashes or lesions noted Data : 08/21/19 03:05 08/21/19 03:05 Micro: Microbiology 08/20/19 10:00 Blood Culture - Preliminary Blood NEGATIVE TO DATE 08/20/19 08:41 Blood Culture - Preliminary Blood NEGATIVE TO DATE 08/19/19 20:00 Occult Blood (FIT) - Final Stool A&P Additional A&P Information 1. ESRD - on dialysis today; 2K, UF 2L - am eval, but will likely cont MWF schedule - dose meds for eGFR < 15 on dialysis 2. Anemia - for 2 units of PRBCs on dialysis - s/po EGD report pending 3. Lytes ok 4. Hemodynamic s stable Attestations Medical Necessity Statement*: eval for ESRD mgmt Coding Level of Care Code Acute Well Drill Operator Rotary Drill for Brynn Castro
--- NOTE | 2019-08-21 14:57 | PC.NURSE ---
PT RECEIVED BLOOD TRANSFUSION DURING DIALYSIS
[2019-08-21] MEDS: morphine 4 mg/mL SDV 1 mL 2 MG IVP ×2 (16:00→22:21)
--- NOTE | 2019-08-21 17:42 | PM.PN ---
Subjective Subjective: Interval history: S/p EGD this morning with gastric and duodenal ulcers without signs of active bleeding. Undergoing dialysis. Ordered for 2PRBC transfusion Medications: Reviewed: Yes Vitals/I&O/Wt Last Vital Signs Temp 97.6 F 08/21/19 16:24 Pulse 88 08/21/19 16:24 Resp 18 08/21/19 16:24 BP 180/69 08/21/19 16:24 Pulse Ox 94 08/21/19 16:24 08/21/19 08/21/19 08/21/19 06:59 14:59 22:59 Intake Total 100 / 1318.750 830 / 830 350 / 1180 Output Total 200 / 1003 0 / 0 Balance -100 / 315.750 830 / 830 350 / 1180 Physical Exam Narrative: EXAM NARRATIVE: GEN: Awake, alert and oriented, no acute distress CVS: S1S2 N RS: CTA B/L Abd: Soft, nt/nd , bs+ SUPERVISOR LEAD BURNING: no focal neuro deficits Data : 08/21/19 03:05 08/21/19 03:05 Micro: Microbiology 08/20/19 10:00 Blood Culture - Preliminary Blood NEGATIVE TO DATE 08/20/19 08:41 Blood Culture - Preliminary Blood NEGATIVE TO DATE 08/19/19 20:00 Occult Blood (FIT) - Final Stool A&P Assessment and plan (1) Nonocclusive mesenteric ischemia: Although possible, less likely than upper GI bleed from gastric or duodenal source. Lactate has improved. He has no abdominal pain. Surgery has evaluated as well. Placed on Zosyn on admission. Continue currently. Status: Acute (2) Anemia: Consistent with upper GI bleeding. S/p EGD with results as above . protonix changd to 40mg po q12h Status: Acute (3) Lumbar hernia: Surgery evaluating. Nontender currently. Status: Acute (4) Hypothyroidism: Status: Acute (5) Diastolic congestive heart failure: Compensated Status: Acute (6) COPD (chronic obstructive pulmonary disease): No evidence of exacerbation Status: Acute (7) DNR (do not resuscitate): Status: Acute Additional A&P Information Marked leukocytosis. Cannot rule out infection on presentation even though no fever was present. Vancomycin per pharmacy, culture blood as well as culture from dialysis catheter. Thus far no growth End-stage renal disease on hemodialysis. Nephrology consulted. Hypothyroidism Hypertension. Holding some blood pressure medicine secondary to bleeding. Will initiate metoprolol lower dose to prevent withdrawal and increase as tolerated. SCDs for DVT prophylaxis. Anticoagulation held secondary to GI bleeding Attestations Medical Necessity Statement*: needs PRBC transfusion, ongoing evaluation for leukocytosis Coding Level of Care Code Acute Manager Field Investigations for [facility] Fwd Diagnoses Nonocclusive mesenteric ischemia K55.059 Anemia D64.9 Lumbar hernia K45.8 Hypothyroidism E03.9 Diastolic congestive heart failure I50.30 COPD (chronic obstructive pulmonary disease) J44.9 DNR (do not resuscitate) Z66
[2019-08-21] MEDS: metoprolol tartrate 25 mg Tablet 12.5 MG PO (18:35)
[2019-08-21] MEDS: pantoprazole DR 40 mg Tablet PO (18:43)
[2019-08-21] MEDS: vancomycin 1,000 MG in sodium chloride 0.9% 250 ML 250 MG IV (19:49)
[2019-08-21] MEDS: piperacillin-tazobactam 3.375 GM in sodium chloride 0.9% (plus) 50 ML IV (21:01)
[2019-08-21] MEDS: ipratropium-albuterol 3 mL Neb INHALATION (23:06)
[2019-08-22] VITALS (12 sets, daily range): BP systolic 152–177; BP diastolic 64–72; PULSE 72–89; RESP 16–20; TEMP 36.5–37; O2SAT 90–96
[2019-08-22] MEDS: hyDRALAzine 20 mg/mL INJ 1 mL 10 MG IVP (04:42)
[2019-08-22] MEDS: morphine 4 mg/mL SDV 1 mL 2 MG IVP (04:42)
[2019-08-22 04:53] LABS: Basophils # 0.1 10^3/uL (0.0-0.1); Basophils % 0.5 %; Eosinophils # 0.4 10^3/uL (0.0-0.8); Eosinophils % 2.8 %; Hematocrit 28.7 % (42.0-52.0); Hemoglobin 9.3 g/dL (11.7-16.6); Lymphocytes # 1.4 10^3/uL (0.8-4.8); Lymphocytes % 9.6 %; Mean Corpuscular HGB Conc 32.4 g/dL (30.0-36.0); Mean Corpuscular Hemoglobin 30.2 pg (28.0-34.0); Mean Corpuscular Volume 93.2 fL (80-94); Mean Platelet Volume 9.4 fL (7.4-10.4); Monocytes # 1.1 10^3/uL (0.2-0.9); Monocytes % 7.8 %; Neutrophils # 11.1 10^3/uL (1.8-7.7); Neutrophils % 77.8 %; Nucleated Red Blood Cells # 0.1 /100WBC; Nucleated Red Blood Cells % 0.6 %; Platelet Count 330 10^3/cmm (130-400); Red Blood Count 3.08 10^6/uL (4.1-5.3); Red Cell Distribution Width 17.3 % (12.1-15.1); White Blood Count 14.2 10^3/uL (4.0-10.0)
[2019-08-22 05:04] LABS: Alanine Aminotransferase 21 U/L (0-41); Albumin Level 3.7 g/dL (3.5-5.2); Alkaline Phosphatase 102 IU/L (40-130); Anion Gap 20.4 (5-19); Aspartate Amino Transferase 32 U/L (0-40); Blood Urea Nitrogen 37 mg/dL (8-23); Calcium 8.4 mg/dL (8.5-10.5); Carbon Dioxide 25 mmol/L (22-29); Chloride 97 mmol/L (98-107); Globulin 2.4 g/dL (1.3-4.6); Glomerular Filtration Rate 15.2 mL/min (90-130); Glucose 101 mg/dL (65-115); Magnesium 1.7 mg/dL (1.7-2.3); Osmolality Calculated 286 mOsm/kg (285-295); Phosphorus 3.9 mg/dL (2.5-4.5); Potassium 3.4 mmol/L (3.5-5.1); Sodium 139 mmol/L (136-145); Total Bilirubin 0.2 mg/dL (0.15-1.2); Total Protein 6.1 g/dL (6.6-8.7)
[2019-08-22] MEDS: piperacillin-tazobactam 3.375 GM in sodium chloride 0.9% (plus) 50 ML IV ×2 (09:00→20:20)
[2019-08-22] MEDS: insulin glargine 100 units/1 mL 5 UNIT SUBCUT (09:01)
[2019-08-22] MEDS: metoprolol tartrate 25 mg Tablet 12.5 MG PO ×2 (09:02→18:15)
[2019-08-22] MEDS: levothyroxine 88 mcg Tablet PO (09:02)
[2019-08-22] MEDS: pantoprazole DR 40 mg Tablet PO ×2 (09:02→18:15)
--- NOTE | 2019-08-22 10:40 | PC.SOCIAL ---
Pg 2 IMM Explained to pt Pg 2 IMM. Pt verbally understands. No questions voiced. Provided pt a copy & left on pt's bedside table. Signed, dated, & timed a copy & placed in pt's chart.
--- NOTE | 2019-08-22 11:01 | PM.PN ---
Subjective Subjective: Interval history: Feels ok, hips still ache. No melena/hematochezia. No edema and no other volume assoc Sx. No uremic Sx. Medications: Reviewed: Yes Vitals/I&O/Wt Last Vital Signs Temp 98.4 F 08/22/19 10:51 Pulse 81 08/22/19 10:51 Resp 18 08/22/19 10:51 BP 158/71 08/22/19 10:51 Pulse Ox 96 08/22/19 10:51 08/21/19 08/22/19 08/22/19 22:59 06:59 14:59 Intake Total 1153.750 / 1983.750 26.250 / 2010.000 480 / 480 Output Total 250 / 250 200 / 450 Balance 903.750 / 1733.750 -173.750 / 1560.000 480 / 480 Physical Exam Narrative: EXAM NARRATIVE: comfortable Resp: AUSCULTATION: crackles Cardio: COMMON NORMALS: S1 normal heart sound present and S2 normal heart sound present HEART SOUNDS: S1 normal heart sound present and S2 normal heart sound present GI: AUSCULTATION: Yes normoactive bowel sounds Extremity: GENERAL: Yes edema Skin: COMMON NORMALS: no rashes or lesions noted GENERAL SKIN EXAM: no rashes or lesions noted Data : 08/22/19 04:00 08/22/19 04:00 Micro: Microbiology 08/20/19 10:00 Blood Culture - Preliminary Blood NEGATIVE TO DATE 08/20/19 08:41 Blood Culture - Preliminary Blood NEGATIVE TO DATE A&P Additional A&P Information 1. ESRD - cont MWF schedule - 2K, UF 3L - dose meds for eGFR < 15 on dialysis 2. Anemia - s/p 2 units of PRBCs on dialysis - s/p EGD yesterday with numerous ulcers seen; on PPI 3. Lytes ok; slightly low K, monitor for now without replacement therapy 4. Hemodynamic s stable Attestations Medical Necessity Statement*: eval for ESRD mgmt Coding Level of Care Code Acute Medical Records Field Technician for [facility] Fwd Exam Detailed
--- NOTE | 2019-08-22 12:26 | ANE.PACU2 ---
Inpatient post-anesthesia follow up: Airway intact: Yes Vital signs: Temperature 98.4 F Pulse Rate 81 Respiratory Rate 18 Blood Pressure 158/71 Pulse Oximetry 96 Oxygen Delivery Me thod [ Nasal Cannula Current Rate & Del nadja] Oxygen Delivery Me thod Nasal Cannula Oxygen Flow Rate [ Current Rate 3.5 & Delivery] Oxygen Flow Rate 4 Fraction of Inspir ed Oxygen Hydration adequate: Yes Nausea and vomiting: No Pain level: 7 Mental status: Baseline
[2019-08-22] MEDS: ipratropium-albuterol 3 mL Neb INHALATION ×2 (14:48→19:25)
[2019-08-22] MEDS: acetaminophen 325 mg Tablet 650 MG PO (20:26)
--- NOTE | 2019-08-22 21:54 | P.PN_ITS ---
Subjective Subjective: Interval history: seen and evaluted earlier this afternoon. No new complaints today. Hb improved at 9.3 toda. Blood cx negative to date. WBC trending down to 14.3 Medications: Reviewed: Yes Vitals/I&O/Wt Last Vital Signs Temp 98.6 F 08/22/19 19:23 Pulse 80 08/22/19 19:32 Resp 18 08/22/19 19:32 BP 157/66 08/22/19 19:23 Pulse Ox 93 08/22/19 19:32 08/22/19 08/22/19 08/22/19 06:59 14:59 22:59 Intake Total 26.250 / 2010.000 1010 / 1010 120 / 1130 Output Total 200 / 450 225 / 225 Balance -173.750 / 3494.464 2055 / 1010 -105 / 905 Physical Exam Narrative: EXAM NARRATIVE: GEN: Awake, alert and oriented, no acute distress CVS: S1S2 N RS: CTA B/L Abd: Soft, nt/nd , bs+ CARDIOTHORACIC ANESTHESIA TECHNICIAN: no focal neuro deficits Data : 08/22/19 04:00 08/22/19 04:00 A&P Assessment and plan (1) Nonocclusive mesenteric ischemia: Noted to have leukocytosis and possible strangulated lumbar hernia initially upon admission, however no compatible clinical symptoms with this. Evaluted by surgery- more likely to have had enteritis. Currently improving on empiric zosyn day 3. Also on vancomycin due to concern for possible line infection from HD cathter. Thus far blood cx negative, if remains negative will d/c iv vancomycin. Status: Acute (2) Anemia: Consistent with upper GI bleeding. S/p EGD with findings of gastric ulceration . protonix changd to 40mg po q12h s/p PRBC transfsion, now stable at 9.4 Likely ulceration relate dto excessive NSAID use. Status: Acute (3) Lumbar hernia: Surgery evaluating. Nontender currently. no clinical signs of strangulation Status: Acute (4) Hypothyroidism: Status: Acute (5) Diastolic congestive heart failure: Compensated Status: Acute (6) COPD (chronic obstructive pulmonary disease): No evidence of exacerbation Status: Acute (7) DNR (do not resuscitate): Status: Acute Additional A&P Information Marked leukocytosis. Cannot rule out infection on presentation even though no fever was present. Vancomycin per pharmacy, culture blood as well as culture from dialysis catheter. Thus far no growth End-stage renal disease on hemodialysis. Nephrology consulted. CUrrently his fistula is functional and he gets outpatient HD via the same. Will remove HD catheter prior to discharge Hypothyroidism Hypertension. Resume amlodipine 10mg po qd SCDs for DVT prophylaxis. Anticoagulation held secondary to GI bleeding. Attestations Medical Necessity Statement*: Planned for discharge after HD tomorrow. will need removal of tunneled cath prior to discharge. Coding Level of Care Code Acute Sand System Operator for [facility] Fwd Diagnoses Nonocclusive mesenteric ischemia K55.059 Anemia D64.9 Lumbar hernia K45.8 Hypothyroidism E03.9 Diastolic congestive heart failure I50.30 COPD (chronic obstructive pulmonary disease) J44.9 DNR (do not resuscitate) Z66
[2019-08-23] VITALS (15 sets, daily range): BP systolic 112–168; BP diastolic 53–80; PULSE 57–92; RESP 17–20; TEMP 36.5–36.9; O2SAT 90–95
[2019-08-23] MEDS: ipratropium-albuterol 3 mL Neb INHALATION ×3 (02:22→14:28)
[2019-08-23 05:52] LABS: Basophils # 0.1 10^3/uL (0.0-0.1); Basophils % 0.4 %; Eosinophils # 0.3 10^3/uL (0.0-0.8); Eosinophils % 2.5 %; Hematocrit 31.3 % (42.0-52.0); Hemoglobin 10.1 g/dL (11.7-16.6); Lymphocytes # 1.1 10^3/uL (0.8-4.8); Lymphocytes % 8.1 %; Mean Corpuscular HGB Conc 32.3 g/dL (30.0-36.0); Mean Corpuscular Hemoglobin 30.4 pg (28.0-34.0); Mean Corpuscular Volume 94.3 fL (80-94); Mean Platelet Volume 9.6 fL (7.4-10.4); Monocytes # 1.1 10^3/uL (0.2-0.9); Monocytes % 8.5 %; Neutrophils # 10.6 10^3/uL (1.8-7.7); Neutrophils % 79.3 %; Nucleated Red Blood Cells % 0.1 %; Platelet Count 340 10^3/cmm (130-400); Red Blood Count 3.32 10^6/uL (4.1-5.3); Red Cell Distribution Width 17.9 % (12.1-15.1); White Blood Count 13.4 10^3/uL (4.0-10.0)
[2019-08-23 06:01] LABS: Alanine Aminotransferase 20 U/L (0-41); Albumin Level 3.8 g/dL (3.5-5.2); Alkaline Phosphatase 74 IU/L (40-130); Anion Gap 20.2 (5-19); Aspartate Amino Transferase 24 U/L (0-40); Blood Urea Nitrogen 41 mg/dL (8-23); Calcium 8.9 mg/dL (8.5-10.5); Carbon Dioxide 27 mmol/L (22-29); Chloride 95 mmol/L (98-107); Globulin 2.7 g/dL (1.3-4.6); Glucose 136 mg/dL (65-115); Magnesium 1.7 mg/dL (1.7-2.3); Osmolality Calculated 288 mOsm/kg (285-295); Phosphorus 4.5 mg/dL (2.5-4.5); Potassium 3.2 mmol/L (3.5-5.1); Sodium 139 mmol/L (136-145); Total Bilirubin 0.2 mg/dL (0.15-1.2); Total Protein 6.5 g/dL (6.6-8.7)
[2019-08-23] MEDS: morphine 4 mg/mL SDV 1 mL 2 MG IVP (07:45)
[2019-08-23] MEDS: levothyroxine 88 mcg Tablet PO (07:47)
[2019-08-23] MEDS: amlodipine 10 mg Tablet PO (07:47)
[2019-08-23] MEDS: insulin glargine 100 units/1 mL 5 UNIT SUBCUT (07:47)
--- NOTE | 2019-08-23 10:30 | PM.PN ---
Subjective Subjective: Interval history: Seen on dialysis; tolerating the procedure well. No complaints. No pain. No melena, no hematochezia. Bps on dialysis fluctuant but largely stable Medications: Reviewed: Yes Vitals/I&O/Wt Last Vital Signs Temp 98.5 F 08/23/19 08:00 Pulse 92 08/23/19 08:00 Resp 17 08/23/19 08:00 BP 168/75 08/23/19 08:00 Pulse Ox 90 08/23/19 08:00 08/22/19 08/23/19 08/23/19 22:59 06:59 14:59 Intake Total 120 / 1130 250 / 1380 180 / 180 Output Total 225 / 225 200 / 425 Balance -105 / 905 50 / 955 180 / 180 Physical Exam Narrative: EXAM NARRATIVE: comfortable Resp: AUSCULTATION: crackles Cardio: COMMON NORMALS: S1 normal heart sound present and S2 normal heart sound present HEART SOUNDS: S1 normal heart sound present and S2 normal heart sound present GI: AUSCULTATION: Yes normoactive bowel sounds Extremity: GENERAL: Yes edema Skin: COMMON NORMALS: no rashes or lesions noted GENERAL SKIN EXAM: no rashes or lesions noted Data : 08/23/19 04:33 08/23/19 04:33 A&P Additional A&P Information 1. ESRD - cont MWF schedule - seen on dialysis today - 3K, UF 3L - dose meds for eGFR < 15 on dialysis 2. Anemia - s/p 2 units of PRBCs on dialysis on Wednesday - s/p EGD yesterday with numerous ulcers seen; on PPI 3. Lytes ok; slightly low K, 3K bath (the highest concentration we have), am labs 4. Hemodynamic are stable - ok for DC after dialysis from my perspective Attestations Medical Necessity Statement*: eval for ESRD mgmt Coding Level of Care Code Acute Ammonia Refrigeration Technician for Brynn Castro
[2019-08-23] MEDS: piperacillin-tazobactam 3.375 GM in sodium chloride 0.9% (plus) 50 ML IV (11:59)
[2019-08-23] MEDS: acetaminophen 325 mg Tablet 650 MG PO (12:00)
[2019-08-23] MEDS: pantoprazole DR 40 mg Tablet PO ×2 (12:00→17:22)
--- NOTE | 2019-08-23 13:27 | PM.DCS ---
Discharge Providers Date of Admission: 08/19/19 19:53 Date of Discharge: August 23, 2019 Attending Provider at Admission: Rosita Madera MD Attending Provider at Discharge: Lian Zarate MD Primary Care Provider: Carla Ceballos MD Diagnoses at Discharge Discharge Diagnosis (1) Nonocclusive mesenteric ischemia: Status: Acute (2) Anemia: Status: Acute (3) Lumbar hernia: Status: Acute (4) Hypothyroidism: Status: Acute (5) Diastolic congestive heart failure: Status: Acute (6) COPD (chronic obstructive pulmonary disease): Status: Acute (7) DNR (do not resuscitate): Status: Acute Reason for Visit Reason for Visit: SOB Hospital Course Discharge Summary: Helio Reynoso is a 64 year old male who has a history of end-stage renal disease Wednesday hemodialysis dependent, hypothyroidism, hypertension, type 2 diabetes came in with chief complaint of profuse diarrhea. Patient is stating that after dialysis on Wednesday he started experiencing profuse diarrhea at home, he had to get up at night as well for his bowel movements. He noticed dark-colored stools which are new for him, he did not notice any fresh red bleed per rectum.Diagnostics in the ER showed leukocytosis, high lactic acid, profuse drop in hemoglobin from 9-5.4, hemodynamically he was stable, afebrile, CT abdomen revealed lumbar hernia with inflammatory changes. White blood cell count was initially very high at greater than 20. During the course of admission he underwent blood transfusion with packed red blood cells and underwent his usual course of dialysis. He underwent an EGD given ongoing melena which showed several gastric ulcerations. He has been initiated on Protonix. Per history from his mother, patient takes an excessive amount of Aleve every day to the tune of at least 7 to 8 tablets on a daily basis. He has been advised to stop taking these now. His hemoglobin is now stable at 10 at the time of discharge. He has not had any further melanotic bowel movements over the last 2 days. Of note his blood leukocytosis says of 20 initially upon admission. On initial CAT scan there was a concern for possibility of strangulated lumbar hernia, this was evaluated by surgery and overall he had no clinical signs compatible with strangulated hernia. His symptoms may have been related to some degree of enteritis. No surgical intervention was indicated at the time. He received empiric antibiotic treatment with Zosyn and vancomycin and the white blood cell count has trended down to 13 at the time of discharge. Blood cultures remain negative. He is overall feeling well. Recently he has received an AV fistula through which she was getting HD as an outpatient. It is relatively new and therefore tunneled hemodialysis catheter had been left in place also through which she received dialysis here. He was scheduled for removal of this catheter as an outpatient however this has been removed today in the hospital. He is being discharged today in an improved state. He has thus far received 4 days of IV antibiotics and is recommended to continue Augmentin for another week for possible enterocolitis. Of note several of his medications were readjusted. Amlodipine was continued at 10 mg p.o. daily. Metoprolol was changed from 200 mg extended release a day to 12.5 mg p.o. twice daily. His blood pressure and heart rate were maintained on this above combination. His clonidine also remain on hold during the course of admission and his blood pressure was well maintained. Regarding his insulin, he had episodes of hypoglycemia with his usual home dose of insulin, therefore the dose was reduced to 5 units of Levemir every day and fingersticks were well maintained between 105-280. Physical Exam Narrative: EXAM NARRATIVE: GEN: Awake, alert and oriented, no acute distress CVS: S1S2 N RS: CTA B/L Abd: Soft, nt/nd , bs+ TOOLS AND PARTS ATTENDANT: no focal neuro deficits Discharge Data Data Completed and Pending: Completed Studies During Hospitalization Category Date Time Status CT abdomen pelvis wo con [id number] Urge nt Cat Scan 08/19/19 15:56 Completed XR chest 1V franki ble [id number] Stat Exams 08/19/19 14:57 Completed Pending at discharge Category Date Time Status Blood Culture Sta t Lab 08/20/19 10:00 Results Labs from last 24 hours 08/23/19 08/23/19 04:33 04:33 WBC 13.4 H RBC 3.32 L Hgb 10.1 L Hct 31.3 L MCV 94.3 H MCH 30.4 MCHC 32.3 RDW 17.9 H Plt Count 340 MPV 9.6 Neut % (Auto) 79.3 Lymph % (Auto) 8.1 Kershaw % (Auto) 8.5 Eos % (Auto) 2.5 Baso % (Auto) 0.4 Neut # (Auto) 10.6 H Lymph # (Auto) 1.1 Kershaw # (Auto) 1.1 H Eos # (Auto) 0.3 Baso # (Auto) 0.1 Nucleated RBC % (a uto) 0.1 Nucleated RBCs # 0.0 Sodium 139 Potassium 3.2 L Chloride 95 L Carbon Dioxide 27 Anion Gap 20.2 H BUN 41 H Creatinine 4.9 H GFR Calculation 12.0 L Glucose 136 H Calculated Osmolal ity 288 Calcium 8.9 Phosphorus 4.5 Magnesium 1.7 Total Bilirubin 0.2 AST 24 ALT 20 Alkaline Phosphata se 74 Total Protein 6.5 L Albumin 3.8 Globulin 2.7 Vitals: Last Vital Signs Temp 98.5 F 08/23/19 08:00 Pulse 57 L 08/23/19 12:00 Resp 18 08/23/19 12:00 BP 130/56 08/23/19 12:00 Pulse Ox 90 08/23/19 08:00 Discharge Plan Discharge Patient Disposition: Home Health Service Condition: Stable Prescriptions: New amoxicillin-pot clavulanate [Augmentin] 875-125 mg tablet 1 tab PO BID 7 Days Qty: 14 RF: 0 metoprolol tartrate 25 mg Tablet 12.5 mg PO BID 30 Days Qty: 30 RF: 0 pantoprazole 40 mg Tablet,Delayed Release (Dr/Ec) 40 mg PO BID 30 Days Qty: 60 RF: 0 Continued (DME) oxygen-air delivery systems Device See Rx Instructions .ROUTE .MEDSUPPLY Qty: 1 RF: 0 amlodipine 10 mg tablet 10 mg PO DAILY RF: 0 furosemide 40 mg tablet 80 mg PO BID RF: 0 Hold Instructions: Resume on 03/24/19. HOLD UNTILE SEEN BY metolazone 5 mg tablet 5 mg PO DAILY RF: 0 levothyroxine 88 mcg tablet 88 mcg PO DAILY RF: 0 budesonide-formoterol [Symbicort] 160-4.5 mcg/actuation HFA aerosol inhaler 2 puff INHALATION BID RF: 0 lanthanum 750 mg tablet,chewable 1,500 mg PO TID RF: 0 Auryxia 210 mg iron tablet See Rx Instructions .ROUTE .COMPLEX RF: 0 Changed Lantus U-100 Insulin 100 unit/mL solution 5 unit SUBCUT BID 30 Days Qty: 6 RF: 0 Discontinued insulin aspart U-100 [Novolog Flexpen U-100 Insulin] 100 unit/mL (3 mL) insulin pen 18 unit SUBCUT BID RF: 0 metoprolol succinate 100 mg tablet extended release 24 hr 200 mg PO DAILY RF: 0 aspirin 81 mg tablet,delayed release (DR/EC) 81 mg PO DAILY RF: 0 No Action clonidine HCl 0.1 mg tablet 0.2 mg PO TID RF: 0 omega-3 fatty acids-fish oil [Fish Oil] 360-1,200 mg capsule 1 cap PO DAILY RF: 0 RenaPlex-D 800 mcg-12.5 mg -2,000 unit tablet 1 tab PO QPM RF: 0 Discharge Orders: Discharge Order (Routine); Ordered 08/23/19 Ordered By: Lian Zarate Referrals: Carla Ceballos MD [Primary Care Provider] - 4-7 days (Post hospital discharge follow-up. Several hypertensive and diabetic medications have been changed would need to be closely monitored with your primary care provider) Giovanni Steinberg MD [Physician] - 2 weeks Discharge Diet: Usual diet Discharge Activity: Resume usual activity Patient Instructions: GI Discharge Instructions Activity Restrictions/Additional Instructions: Did not take Aleve that has led to several gastric ulcerations. Protonix 40 mg twice daily is a new medication for your ulcers. Discharge Attestations Time Spent in Discharge Care*: less than 30 min Quality Metrics Clinical Quality Measures During this hospital stay, did patient experience: None Coding Level of Care Code Acute Lumber Mover for Chg Fwd Diagnoses Nonocclusive mesenteric ischemia K55.059 Anemia D64.9 Lumbar hernia K45.8 Hypothyroidism E03.9 Diastolic congestive heart failure I50.30 COPD (chronic obstructive pulmonary disease) J44.9 DNR (do not resuscitate) Z66
--- NOTE | 2019-08-23 13:56 | PC.NURSE ---
DR LARIOS OKAYED TO NOT GIVE PT DOSE OF METOPROLOL
--- NOTE | 2019-08-23 14:59 | PM.ACPR ---
Procedure/Consent Time out: Time Out Performed: Yes Consent: Consent for Procedure: Consent obtained from patient Additional Consent Information: The patient's right chest was prepped and draped in a sterile manner. 1% lidocaine was infiltrated at the catheter entry site. Using hemostats the catheter along with the associated cuff was surgically dissected free from the surrounding subcutaneous tissue and removed intact without difficulty. Pressure was held for 5 minutes and pressure dressings were applied. Patient tolerated the procedure well. Acute Procedures Epistaxis Control: Time out performed: Yes
[2019-08-23] MEDS: lidocaine 1% INJ 20 mL 5 ML IV (15:09)
[2019-08-23] MEDS: metoprolol tartrate 25 mg Tablet 12.5 MG PO (17:19)
== END 2019-08-23 18:50 | disposition home health service (06) | DRG 393 ==
LOC: ER 15:57 → ICU 20:17 → MEDSURG 08-20 23:53
PROVIDERS: Internal Medicine; Surgery; Admitting Provider Internal Medicine; Emergency Provider Family Medicine; PCP Internal Medicine; Visit Provider Student in an Organized Health Care Education/Training Program
PROC: 0DJ08ZZ Inspection of Upper Intestinal Tract, Via Natural or Artificial Opening Endoscopic (ICD-10-PCS; CPT 43235; principal; 2019-08-21 07:30)
DX: K55.059 Acute (reversible) ischemia of intestine, part and extent unspecified (principal); I50.31 Acute diastolic (congestive) heart failure; N18.6 End stage renal disease; I13.2 Hypertensive heart and chronic kidney disease with heart failure and with stage 5 chronic kidney disease, or end stage renal disease; K92.2 Gastrointestinal hemorrhage, unspecified; Z66 Do not resuscitate; J44.9 Chronic obstructive pulmonary disease, unspecified; K45.8 Other specified abdominal hernia without obstruction or gangrene; E03.9 Hypothyroidism, unspecified; Z99.2 Dependence on renal dialysis; Z79.4 Long term (current) use of insulin; Z79.82 Long term (current) use of aspirin; D63.1 Anemia in chronic kidney disease; K52.9 Noninfective gastroenteritis and colitis, unspecified; Z87.891 Personal history of nicotine dependence
CPT/HCPCS: 12345; 36415; 36416; 36430; 43239; 71045; 74176; 80048; 80053; 81001; 82274; 82607; 82962; 83605; 83690; 83735; 84100; 85014; 85018; 85025; 86850; 86900; 86920; 87040; 87493; 88305; 93005; 94640; 96372; 96375; 99284; C9113; J0360; J1815; J2001; J2270; J2543; J2704; J3370; J7030; J7050; P9016; Q3014

== ENCOUNTER 2019-08-30 06:28 | Day surgery (SDC) | payer MEDICARE, MEDICAID, SELFPAY ==
--- NOTE | 2019-08-30 | SCC_ITS ---
Procedure Done: Placement of 27 cm long AshSplit tunneled hemodialysis catheter right internal jugular vein 180.3 seconds of fluoroscopic guidance, for a cumulative dose of 21.39 mGy, was provided to Dr. Steinberg by the radiology department. C-arm images of the chest were saved for the patient's permanent record. [facility]
[2019-08-30 06:52] VITALS: BP 144/63; PULSE 75; RESP 18; TEMP 36.2; O2SAT 95
--- NOTE | 2019-08-30 06:52 | P.HP_ITS ---
Providers/Chief Complaint Primary Care Provider: Carla Ceballos MD Chief Complaint: CKD History of Present Illness Helio Reynoso is a 64 year old male who was recently admitted to the hospital with severe diarrhea and was just discharged a few days prior. Patient had his hemodialysis catheter removed on his day of discharged.. His AV fistula has been functioning well but apparently it stopped working and now needs anothe r tunneled dialysis catheter in place. Review of Systems General: Reports: 10 or more systems reviewed and unremarkable except in HPI and below Medications/Allergies Home Medications Medication Instructions Recorded Confirmed Last Taken Type budesonide-formoterol [Symbicort] 2 puff INHALATION BID 03/15/19 08/29/19 08/19/19 History furosemide 80 mg PO BID 03/15/19 08/19/19 08/19/19 History levothyroxine 88 mcg PO DAILY 03/15/19 08/29/19 08/19/19 History metolazone 5 mg PO DAILY 03/15/19 08/29/19 08/19/19 History omega-3 fatty acids-fish oil [Fish 1 cap PO DAILY 03/15/19 08/29/19 08/19/19 History Oil] oxygen-air delivery systems #1 04/13/19 08/19/19 Unknown History amlodipine 10 mg tablet 10 mg PO DAILY tab 06/22/19 08/29/19 08/19/19 History RenaPlex-D 1 tab PO QPM 08/19/19 08/29/19 08/18/19 History lanthanum 1,500 mg PO TID 08/19/19 08/29/19 08/18/19 History Lantus U-100 Insulin 5 unit SUBCUT BID 30 Days #6 ml 08/23/19 08/29/19 08/18/19 Rx metoprolol tartrate 12.5 mg PO BID 30 Days #30 tab 08/23/19 08/29/19 Unknown Rx pantoprazole 40 mg PO BID 30 Days #60 tab 08/23/19 08/29/19 Unknown Rx Allergies Allergy/AdvReac Type Severity Reaction Status Date / Time No Known Allergies Allergy Verified 08/19/19 17:01 PFSH PFSH: Medical History Blood transfusion abn reaction or complication, no procedure mishap Cataract disorder type 14 COPD (chronic obstructive pulmonary disease) COPD (chronic obstructive pulmonary disease) Diastolic congestive heart failure ESRD (end stage renal disease) Hypertension Hypothyroidism Insulin dependent type 2 diabetes mellitus Iron deficiency anemia Morbid obesity Nonalcoholic liver disease, chronic Secondary hyperparathyroidism Surgical History History of open reduction and internal fixation (ORIF) procedure S/P dialysis catheter insertion Status post creation of arteriovenous fistula Family History Other CAD (coronary artery disease) Hyperlipidemia Hypertension Denies family history of Cancer Social History Smoking and tobacco status: former smoker Alcohol intake: never Household members: family and other Details: Lives with his mother History of recent travel: No Dietary Habits: Caffeine: Yes Vital Signs Vitals Signs: Last Vital Signs Temp 97.2 F L 08/30/19 06:52 Pulse 75 08/30/19 06:52 Resp 18 08/30/19 06:52 BP 144/63 08/30/19 06:52 Pulse Ox 95 08/30/19 06:52 Weight: Weight last 48 hrs Weight 198 lb Physical Exam Narrative: EXAM NARRATIVE: HEENT: Normocephalic Eye: Sclera /conjunctiva normal Respiratory and chest: Bilateral clear breath sounds on auscultation Cardiovascular: Normal S1 and S2 heart sounds Abdomen: Soft to palpation Neurological: Oriented to place person and time Skin: Intact, AV fistula left arm A&P Assessment and plan (1) ESRD (end stage renal disease): 64-year-old gentleman with ESRD with nonfunctioning AV fistula that now requires a tunneled hemodialysis catheter for dialysis. Plan for placement of tunneled dialysis catheter under MAC on 08/30/2019 Procedure, risks, benefits and alternatives have been discussed with the patient who wishes to proceed with surgery. Status: Acute Coding Level of Care Code Acute Glass Finisher for [facility] Terence Diagnoses ESRD (end stage renal disease) N18.6
[2019-08-30 06:58] VITALS: BMI 30.1
[2019-08-30 07:08] LABS: Glucose Point of Care 127 mg/dL (70-110)
[2019-08-30] MEDS: sodium chloride 0.9% 1,000 ML 30 ML IV (07:20)
--- NOTE | 2019-08-30 07:43 | ANES.PREANE2 ---
Pre-Anesthetic Assessment Pre-Anesthetic Assessment: Height/Weight: Height 1.73 m Weight 89.811 kg Temp Pulse Resp BP Pulse Ox 97.2 F L 75 18 144/63 95 08/30/19 06:52 08/30/19 06:52 08/30/19 06:52 08/30/19 06:52 08/30/19 06:52 Preop Diagnosis: ESRD Proposed Procedure: Operation Date: 08/30/19 08:00 Proposed Procedures p Dialysis Catheter Insertion 45431 N18.6(Not Applicable) - Giovanni Steinberg MD Was Beta Veronica taken within 24 hours: Yes Last intake: Intake Last Liquid Date 08/29/19 Last Solid Date 08/29/19 Social: Social History: No alcohol and No tobacco Exam: Pre-Anes Outpt Exam: alert and oriented x 3 Airway: Submandibular: WNL Cervical ROM: WNL MP: 4 Dentition: Chipped and Full Pulmonary: Pulmonary: COPD (home o2 ), REYEZ, Sleep apnea (cpap) and SOB CV/HEM: CV/HEM: HTN : : Chronic renal failure Hepatic: Hepatic: None reported GI: GI: None reported Metabolic: Metabolic: DM and Morbid obesity Musc/skel: Musc/skel: None reported Neuropsych: Neuropsych: None reported Anesthetic Plan: ASA status: 4 Anesthesia: MAC Meds/Allergies Current Medications: Current Medications Generic Name Dose Route Start Last Admin Trade Name Freq PRN Reason Stop Dose Admin Sodium Chloride 1,000 mls @ 30 ml s/hr 08/29/19 14:00 08/30/19 07:20 Sodium Chloride 0.9% IV 08/30/19 13:59 30 mls/hr .Q24H LENNIE Administration PFSH Anesthesia PFSH: Medical History Blood transfusion abn reaction or complication, no procedure mishap Cataract disorder type 14 COPD (chronic obstructive pulmonary disease) COPD (chronic obstructive pulmonary disease) Diastolic congestive heart failure ESRD (end stage renal disease) Hypertension Hypothyroidism Insulin dependent type 2 diabetes mellitus Iron deficiency anemia Morbid obesity Nonalcoholic liver disease, chronic Secondary hyperparathyroidism Surgical History History of open reduction and internal fixation (ORIF) procedure S/P dialysis catheter insertion Status post creation of arteriovenous fistula Family History Other CAD (coronary artery disease) Hyperlipidemia Hypertension Denies family history of Cancer Social History Smoking and tobacco status: former smoker Alcohol intake: never Household members: family and other Details: Lives with his mother History of recent travel: No Data Anesthesia Other Labs: Laboratory Results - last 48 hr 08/30/19 07:01 POC Glucose 127 Cardiac Studies: No Data to Display
--- NOTE | 2019-08-30 07:47 | SC_ITS ---
WS: [id number] C-ARM RADIOGRAPHS CHEST; 3 IMAGES HISTORY: dialysis catheter placement COMPARISON: None available. Dialysis catheter placement with intraoperative imaging. SC/C-arm FL for CVA [id number] IMPRESSION: Intraoperative imaging during dialysis catheter placement through the RIGHT sub clavian vein.
[2019-08-30] MEDS: ipratropium-albuterol 3 mL Neb INHALATION (08:00)
[2019-08-30 08:03] VITALS: PULSE 71; RESP 18; O2SAT 94
[2019-08-30 08:07] VITALS: PULSE 74
[2019-08-30] MEDS: heparin, porcine 1,000 unit/mL INJ 10 mL 10000 UNIT IRRIGATION (08:35)
[2019-08-30] MEDS: lidocaine 1% INJ 20 mL SUBCUT (08:39)
[2019-08-30] MEDS: heparin,porcine 1,000 unit/mL INJ 1 mL 1000 UNIT IRRIGATION (09:03)
--- NOTE | 2019-08-30 09:16 | PM.OP ---
Operative Report Date of procedure: August 30, 2019 Pre-op Diagnosis: ESRD, nonfunctioning AV fistula Post-op Findings: Same Procedure Done: Placement of 27 cm long AshSplit tunneled hemodialysis catheter right internal jugular vein ultrasound guidance to access right internal jugular vein Fluoroscopic guidance and interpretation for placement of catheter Surgeon: Giovanni Steinberg Anesthesia: MAC Estimated blood loss (mL): 25 Condition: stable Disposition: same day Procedure: The patient was taken to the operating room and placed under MAC after IV antibiotic had been administered. The chest and neck were prepped and draped in a sterile manner bilaterally. An ultrasound of the right internal jugular vein revealed patent flow, no thrombus identified. Using introducer needle the internal jugular vein on the right side was accessed and guidewire passed into the right atrium under fluoroscopy. Under fluoroscopy the location for the dialysis catheter was marked. Using 11 blade a skin incision was extended at the vein access site as well as the previously marked location on the right chest wall. The dialysis catheter was attached to the tunneler and passed subcutaneously, exiting at the venous access site. Serial dilators were passed over the guidewire under fluoroscopy. Finally the dilator peel-away sheath was passed over the guidewire and the inner dilator and guidewire was removed and the dialysis catheter was introduced into the right internal jugular vein as the peel-away sheath was removed. The tip of the catheter was noted to be in the right atrium. The arterial port did not draw blood easily. The catheter was grasped through the skin incision was made in the neck and cut after hemostat was placed and the distal end of the catheter was removed. A 27 cm long AshSplit catheter was attached to the tunneler and passed through the skin incision on the chest and pulled out through the skin incision on the neck. A guidewire was passed under fluoroscopy and the distal portion of the catheter was removed and a dilator sheath was placed over the guidewire and the guidewire and the inner dilator was removed. The AshSplit catheter was then introduced into the superior vena cava and the peel-away sheath was removed. The tip of the catheter was noted at the junction of the atrium and the superior vena cava. Both ports withdrew blood and flushed easily. The catheter was sutured to the skin using 2-0 Prolene and the venous access site was closed with 4-0 Monocryl and Dermabond. A total of 5 mL of 1:10,000 heparin was injected into the 2 ports under dialysis catheter. Fluoroscopic guidance and interpretation for passage of guidewire and dilator and placement of catheter in the right atrium.
[2019-08-30 09:25] VITALS: BP 125/70; PULSE 75; RESP 18; TEMP 36.1; O2SAT 97
[2019-08-30 10:05] VITALS: BP 127/71; PULSE 77; RESP 18; O2SAT 94
== END 2019-08-30 10:30 | disposition home or self-care (01) ==
PROVIDERS: PCP Internal Medicine; Visit Provider Surgery
PROC: (CPT 36558; principal; 2019-08-30 08:00)
DX: T82.590A Other mechanical complication of surgically created arteriovenous fistula, initial encounter (principal); I13.2 Hypertensive heart and chronic kidney disease with heart failure and with stage 5 chronic kidney disease, or end stage renal disease; I50.30 Unspecified diastolic (congestive) heart failure; N18.6 End stage renal disease; J44.9 Chronic obstructive pulmonary disease, unspecified; Z99.81 Dependence on supplemental oxygen; G47.30 Sleep apnea, unspecified; E11.9 Type 2 diabetes mellitus without complications; E66.01 Morbid (severe) obesity due to excess calories; Z68.30 Body mass index [BMI] 30.0-30.9, adult; E03.9 Hypothyroidism, unspecified; Z79.4 Long term (current) use of insulin; Z82.49 Family history of ischemic heart disease and other diseases of the circulatory system; Z83.3 Family history of diabetes mellitus; Z87.891 Personal history of nicotine dependence
CPT/HCPCS: 36558; 12345; 36416; 76000; 77001; 82962; 94640; C1750; J0690; J1644; J2001; J3490; J7030

== ENCOUNTER 2019-08-30 15:50 | Emergency (ER) | payer MEDICARE, MEDICAID, SELFPAY ==
--- NOTE | 2019-08-30 16:22 | W.ED.WOUNDLC ---
HPI - Wound/Laceration General: Stated Complaint: post procedure problems Time Seen by Provider: 08/30/19 16:12 Source: patient Mode of arrival: ambulatory Limitations: no limitations History of Present Illness: HPI narrative: 64-year-old male who had a dialysis catheter placed this morning. Patient does have a small less than 1 cm wound to his upper neck away from the dialysis catheter. Patient had oozing from that site since this morning. Patient sent over here from dialysis clinic as he is still been bleeding from the site. He denies any weakness. He denies any worsening improving factors. Associated symptoms: Denies chills, fever(s), nausea or vomiting Review of Systems Const: Denies: fever(s), chills, body aches or change in appetite Eyes: Denies: blurry vision or eye discomfort ENMT: Denies: throat pain or dental pain Card: Denies: chest pain Resp: Denies: dyspnea GI: Denies: abdominal pain, nausea, vomiting or diarrhea : Denies: dysuria Musc: Denies: neck pain or back pain Skin/Breast: Denies: rash Neuro: Denies: headache(s) Psych: Denies: depression Alfonso/Lymph: Denies: easy bruising All/Imm: Denies: urticaria PFSH ED PFSH: Medical History Blood transfusion abn reaction or complication, no procedure mishap Cataract disorder type 14 COPD (chronic obstructive pulmonary disease) COPD (chronic obstructive pulmonary disease) Diastolic congestive heart failure ESRD (end stage renal disease) Hypertension Hypothyroidism Insulin dependent type 2 diabetes mellitus Iron deficiency anemia Morbid obesity Nonalcoholic liver disease, chronic Secondary hyperparathyroidism Surgical History History of open reduction and internal fixation (ORIF) procedure S/P dialysis catheter insertion (08/30/19) Status post creation of arteriovenous fistula Family History Other CAD (coronary artery disease) Hyperlipidemia Hypertension Denies family history of Cancer Social History Smoking and tobacco status: former smoker Alcohol intake: never Household members: family and other Details: Lives with his mother History of recent travel: No Physical Exam Const: COMMON NORMALS: no acute distress, patient oriented x3 and healthy appearing HENMT: COMMON NORMALS: normocephalic and atraumatic HEAD & SCALP: normocephalic and atraumatic Eye: COMMON NORMALS: Equal, round and reactive pupils present and EOMs intact bilaterally PUPIL: Yes Equal, round and reactive pupils present Neck/C-Spine: COMMON NORMALS: full ROM and supple Chest: COMMONS NORMALS: normal inspection of the chest and normal palpation of entire chest wall Resp: COMMON NORMALS: normal respiratory effort, No retractions, No use of accessory muscles and clear to auscultation bilaterally AUSCULTATION: clear to auscultation bilaterally Cardio: COMMON NORMALS: regular rate, regular rhythm and No murmurs present (Cardio) RATE: regular rate RHYTHM: regular rhythm GI: COMMON NORMALS: Normal to inspection, nondistended, normoactive bowel sounds present, Soft to palpation, non-tender and no masses PALPATION: Yes Soft to palpation Extremity: COMMON NORMALS: normal to inspection and full ROM Neuro: COMMON NORMALS: patient oriented x3, moves all extremities and no focal motor deficits Psych: COMMON NORMALS: mental status grossly normal, Normal thought process present and cooperative THOUGHT PROCESS: Normal thought process present Skin: NARRATIVE SKIN EXAM: To right side of neck patient has what appears to be a less than 1 cm laceration superficial that is currently bleeding Procedures Laceration Laceration 1: Site: neck Side (If applicable): right Size (cm): 1 Description: linear Depth: simple, single layer Local Anesthetic: lidocaine 1% and with epi Amount of anesthesia used (mL): 2 Size (cm): 3-0 and 5-0 Number of sutures: 1 Technique: other ([id number]) Course Vital Signs: Vital signs: Vital Signs Temperature 98.1 F 08/30/19 16:38 Pulse Rate 80 08/30/19 16:38 Respiratory Rate 18 08/30/19 16:38 Blood Pressure 153/66 08/30/19 16:38 Pulse Oximetry 93 08/30/19 16:38 MDM - Wound/Laceration MDM Narrative: Medical decision making narrative: Patient presents here with slight wound to right neck and I did a [id number] stitch with absorbable sutures. Patient has had no more bleeding here and is stable for discharge. He is return if worsening. Discharge Plan Discharge Patient Disposition: Home, Self-Care Clinical Impression: Laceration Condition: Stable Prescriptions: No Action (DME) oxygen-air delivery systems Device See Rx Instructions .ROUTE .MEDSUPPLY Qty: 1 RF: 0 amlodipine 10 mg tablet 10 mg PO DAILY RF: 0 furosemide 40 mg tablet 80 mg PO BID RF: 0 Hold Instructions: Resume on 03/24/19. HOLD UNTILE SEEN BY metolazone 5 mg tablet 5 mg PO DAILY RF: 0 levothyroxine 88 mcg tablet 88 mcg PO DAILY RF: 0 budesonide-formoterol [Symbicort] 160-4.5 mcg/actuation HFA aerosol inhaler 2 puff INHALATION BID RF: 0 omega-3 fatty acids-fish oil [Fish Oil] 360-1,200 mg capsule 1 cap PO DAILY RF: 0 Rose 5-325 mg tablet 1 tab PO Q6H 7 Days Qty: 20 RF: 0 lanthanum 750 mg tablet,chewable 1,500 mg PO TID RF: 0 RenaPlex-D 800 mcg-12.5 mg -2,000 unit tablet 1 tab PO QPM RF: 0 pantoprazole 40 mg Tablet,Delayed Release (Dr/Ec) 40 mg PO BID 30 Days Qty: 60 RF: 0 metoprolol tartrate 25 mg Tablet 12.5 mg PO BID 30 Days Qty: 30 RF: 0 Lantus U-100 Insulin 100 unit/mL solution 5 unit SUBCUT BID 30 Days Qty: 6 RF: 0 Discharge Orders: Discharge Order (Routine); Ordered 08/30/19 Ordered By: Mariella Ann Referrals: Carla Ceballos MD [Primary Care Provider] - 1-3 days Discharge Diet: Advance as tolerated Discharge Activity: Resume usual activity Patient Instructions: Laceration (ED) Coding Level of Care Code ED Workers' Compensation Hearings Officer for Chg Fwd Exam Comprehensive
[2019-08-30 16:38] VITALS: BP 153/66; PULSE 80; RESP 18; TEMP 36.7; O2SAT 93
[2019-08-30 16:51] VITALS: BP 156/66; PULSE 86; RESP 16; TEMP 36.7; O2SAT 95; BMI 30.1
--- NOTE | 2019-08-30 16:57 | PC.NURSE ---
4X4 DRESSING APPLIED TO SURGICAL INCISION ON NECK PER DR. DEMI WILKS.
== END 2019-08-30 17:06 | disposition home or self-care (01) ==
PROVIDERS: Emergency Provider Emergency Medicine; PCP Internal Medicine
DX: S11.91XA Laceration without foreign body of unspecified part of neck, initial encounter (principal); X58.XXXA Exposure to other specified factors, initial encounter; J44.9 Chronic obstructive pulmonary disease, unspecified; I11.0 Hypertensive heart disease with heart failure; I50.30 Unspecified diastolic (congestive) heart failure; E11.22 Type 2 diabetes mellitus with diabetic chronic kidney disease; I13.2 Hypertensive heart and chronic kidney disease with heart failure and with stage 5 chronic kidney disease, or end stage renal disease; N18.6 End stage renal disease; Z99.2 Dependence on renal dialysis; Z79.4 Long term (current) use of insulin; Z87.891 Personal history of nicotine dependence
CPT/HCPCS: 12001; 12002; 12345; 99281; 99282

== ENCOUNTER 2019-10-23 12:43 | Inpatient (IN) | payer MEDICARE, MEDICAID, SELFPAY ==
[2019-10-23] VITALS (15 sets, daily range): BP systolic 110–189; BP diastolic 61–104; PULSE 66–85; RESP 16–22; TEMP 36.4–37.1; O2SAT 94–100; BMI 29.2
--- NOTE | 2019-10-23 12:52 | XRR_ITS ---
PROCEDURE INFORMATION: Exam: XR Chest, 1 View Exam date and time: 10/23/2019 1:06 PM Age: 64 years old Clinical indication: Other: Weakness; Prior surgery; Surgery type: Port; Patient HX: No chest complaints TECHNIQUE: Imaging protocol: XR of the chest Views: 1 view. COMPARISON: CR XR chest 1V portable [id number] 08/19/2019 3:01 PM FINDINGS: Tubes, catheters and devices: A right side central line is in place extending into the right atrium. Lungs: Unremarkable. No consolidation. Pleural space: Unremarkable. No pleural effusion. No pneumothorax. Heart/Mediastinum: Unremarkable. No cardiomegaly. Bones/joints: Unremarkable. Other findings: Comparison to prior examination this finding appears to have been exchanged. XR/XR chest 1V portable [id number] IMPRESSION: 1. No acute findings. 2. Right central line in good position
--- NOTE | 2019-10-23 12:53 | ECG_ITS ---
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 Measurements Intervals [place] Rate: 82 P: 83 TN: 153 QRS: 7 QRSD: 84 T: 77 QT: 370 QTc: 434 Interpretive Statements SINUS RHYTHM Compared to ECG 08/19/2019 14:52:37 No significant changes Electronically Signed On 10-23-2019 23:43:02 CDT by Lam Murguia M.D. [id number] f
--- NOTE | 2019-10-23 13:25 | W.ED.WEAKNES ---
HPI - Weakness General: Chief complaint: Weakness Stated complaint: WEAKNESS AND LEFT SIDED HIP PAIN Time Seen by Provider: 10/23/19 12:48 Source: patient Mode of arrival: ambulatory Limitations: no limitations History of Present Illness: HPI Narrative: Dilcia is a 64-year-old male who comes in with complaint of generalized weakness. Patient stated he felt fine today and then went for a dialysis treatment and started to feel weak during the dialysis treatment. He did not report this to anyone but then was able to drive himself home but when walking from his car to his home he became tired and weak. The patient is to be on oxygen at all times but was not wearing his oxygen. EMS noted the patient to have a pulse ox at 89% on room air. Patient's been placed on oxygen and had a line established by EMS currently he states he feels better but still has mild weakness. He is not certain if they took off too much fluid today at dialysis. He denies chest pain, shortness of breath, fever, headache, cough, abdominal pain, back pain, extremity pain, rashes or any other complaint. Associated symptoms: Denies chest pain, chills, confusion, melena, diaphoresis, dysuria, easy bruising, fever(s), headache(s), nausea, syncope or vomiting Review of Systems Const: Denies: fever(s), chills, body aches, fatigue, malaise or diaphoresis Eyes: Denies: change in vision, blurry vision, photophobia, eye discomfort, eye discharge or eye redness ENMT: Denies: throat pain, odynophagia, hoarseness, swelling of lips/tongue, ear or mastoid pain, ear discharge, change in hearing or nasal discharge Card: Denies: chest pain, palpitations, irregular heart rhythm, edema, lightheadedness, syncope, pre-syncope, dyspnea on exertion or orthopnea Resp: Denies: dyspnea, productive cough, non-productive cough, wheezing, hemoptysis or chest congestion GI: Denies: abdominal pain, nausea, vomiting, hematemesis, coffee ground emesis, heartburn, diarrhea, constipation, GI cramping, hematochezia or melena : Denies: flank pain, dysuria, urinary frequency, urinary urgency or hematuria Musc: Denies: neck pain, back pain, extremity pain, extremity swelling, joint pain, joint swelling, joint redness, joint warmth or joint stiffness Skin/Breast: Denies: rash, pruritus, erythema or skin tenderness Neuro: Denies: headache(s), numbness in extremities, weakness in extremities, sensory changes, lack of coordination, difficulty walking, dizziness, vertigo, confusion, Slurred speech present or seizure-like activity Alfonso/Lymph: Denies: easy bruising, easy bleeding, petechiae, purpura or enlarged lymph nodes All/Imm: Denies: urticaria, throat swelling, tongue swelling, facial swelling or acute wheezing PFSH ED PFSH: Medical History Blood transfusion abn reaction or complication, no procedure mishap Cataract disorder type 14 COPD (chronic obstructive pulmonary disease) COPD (chronic obstructive pulmonary disease) Diastolic congestive heart failure ESRD (end stage renal disease) Hypertension Hypothyroidism Insulin dependent type 2 diabetes mellitus Iron deficiency anemia Morbid obesity Nonalcoholic liver disease, chronic Secondary hyperparathyroidism Surgical History History of open reduction and internal fixation (ORIF) procedure S/P dialysis catheter insertion (08/30/19) Status post creation of arteriovenous fistula Family History Other CAD (coronary artery disease) Hyperlipidemia Hypertension Denies family history of Cancer Social History Smoking and tobacco status: former smoker Alcohol intake: never Household members: family and other Details: Lives with his mother History of recent travel: No Physical Exam Const: COMMON NORMALS: no acute distress, patient oriented x3, no limitations, healthy appearing and well nourished GENERAL APPEARANCE: cooperative, well kempt and well developed HENMT: COMMON NORMALS: normocephalic, atraumatic, external ears normal, EAC's normal and Normal external nose present HEAD & SCALP: normal to inspection, normocephalic and atraumatic FACE & SINUS: normal facial exam and face symmetric NOSE: Normal external nose present and Normal nares present EXTERNAL EAR: Yes external ears normal EXTERNAL AUDITORY CANAL: EAC's normal MOUTH: Normal oral and palatal mucosa present, lip normal and tongue normal Eye: COMMON NORMALS: Equal, round and reactive pupils present and conjunctivae normal GENERAL EYE: appearance normal, both eyes and all related structures ALIGNMENT: Yes alignment normal PERIORBITAL: periorbital findings normal EYELID: eyelids normal CONJUNCTIVA: Yes conjunctivae normal SCLERA: sclerae normal PUPIL: Yes Equal, round and reactive pupils present Neck/C-Spine: COMMON NORMALS: full ROM, no lymphadenopathy, supple, no meningeal signs and no JVD GENERAL: Yes normal visual inspection and Yes trachea midline Chest: COMMONS NORMALS: normal inspection of the chest and normal palpation of entire chest wall Resp: COMMON NORMALS: normal respiratory effort, No retractions, No use of accessory muscles and clear to auscultation bilaterally EFFORT & INSPECTION: Yes able to speak in complete sentences and Yes symmetric chest movement AUSCULTATION: clear to auscultation bilaterally, no crackles, no rales, no rhonchi and no wheezes Cardio: COMMON NORMALS: no JVD, regular rate, regular rhythm, S1 normal heart sound present and S2 normal heart sound present RATE: regular rate RHYTHM: regular rhythm HEART SOUNDS: S1 normal heart sound present, S2 normal heart sound present, no click, no gallops, no murmurs, no rubs and abnormal split S2 GI: COMMON NORMALS: Soft to palpation and No hepatosplenomegaly present PALPATION: Yes Soft to palpation, No Tenderness to palpation present (GI), No Guarding due to palpation present (GI), No Rigid due to palpation, Yes No hepatosplenomegaly present, No Hernia present, No Palpable mass present and No Pulsatile mass present : COMMON NORMALS: Yes no CVA tenderness BLADDER/KIDNEY EXAM: Yes no CVA tenderness Back/Pelvis: COMMON NORMALS: no CVA tenderness, thoracic and lumbar spine normal to inspection, no thoracic nor lumbar tenderness and thoraco-lumbar ROM normal Extremity: COMMON NORMALS: normal to inspection, full ROM, capillary refill normal, no joint enlargement, no clubbing, cyanosis or edema and no calf tenderness Neuro: COMMON NORMALS: patient oriented x3, CN's II-XII intact bilaterally, moves all extremities, no focal motor deficits and no sensory deficits noted MENINGEAL SIGNS: Yes no meningeal signs SPEECH: speech normal Psych: COMMON NORMALS: mental status grossly normal, Normal thought process present, cooperative, normal affect, speech normal and activity/motor behavior normal APPEARANCE: Yes well kempt SPEECH: Yes normal speech THOUGHT PROCESS: Normal thought process present Skin: COMMON NORMALS: no rashes or lesions noted, turgor normal, no jaundice, no petechiae and no mottling GENERAL SKIN EXAM: no rashes or lesions noted and turgor normal Course Vital Signs: Vital signs: Vital Signs Temperature 97.8 F 10/23/19 16:05 Pulse Rate 67 10/23/19 16:45 Respiratory Rate 18 10/23/19 16:45 Blood Pressure 180/104 10/23/19 16:45 Pulse Oximetry 98 10/23/19 16:45 MDM - Weakness MDM Narrative: Medical decision making narrative: Mr. Reynoso is a nice 64-year-old male who claims that he got weak during dialysis and then when he went home he was so weak he could not walk to the door. He is changed his story now to say that his left hip is hurting him so bad he cannot bear weight on it. 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 He denies any new trauma or injury to his hip. We tried to ambulate him here but he was unable to bear any weight. The patient's troponins are within his normal range and is not having chest pain and he has normal EKGs. His story changes each time you ask him but ultimately he is unable to bear weight secondary to pain here. I reviewed the case with Dr. Zarate who agrees to admit the patient for observation we will consult Dr. Mar to evaluate him for his hip pain. I will go ahead and add further imaging here and an ultrasound but the patient has a good pulse intact and again he denies any trauma or new injuries. Lab Data: Attestation: I reviewed the patient's lab results. Labs: Lab Results 10/23/19 10/23/19 10/23/19 Range/Units 13:15 13:15 13:15 WBC 8.5 (4.0-10.0) 10^3/ uL RBC 3.81 L (4.1-5.3) 10^6/u L Hgb 12.1 (11.7-16.6) g/dL Hct 36.6 L (42.0-52.0) % MCV 96.1 H (80-94) fL MCH 31.8 (28.0-34.0) pg MCHC 33.1 (30.0-36.0) g/dL RDW 15.2 H (12.1-15.1) % Plt Count 261 (130-400) 10^3/c mm MPV 8.8 (7.4-10.4) fL Neut % (Auto) 73.9 % Lymph % (Auto) 16.6 % [place] % (Auto) 7.5 % Eos % (Auto) 1.4 % Baso % (Auto) 0.2 % Neut # (Auto) 6.29 (1.8-7.7) 10^3/u L Lymph # (Auto) 1.4 (0.8-4.8) 10^3/u L [place] # (Auto) 0.6 (0.2-0.9) 10^3/u L Eos # (Auto) 0.1 (0.0-0.8) 10^3/u L Baso # (Auto) 0.0 (0.0-0.1) 10^3/u L Nucleated RBC % (a uto) 0 % Nucleated RBCs # 0.0 /100WBC PT 11.90 L (12.1-14.9) SECO NDS INR 0.85 (0.8-1.2) Sodium 138 (136-145) mmol/L Potassium 4.4 (3.5-5.1) mmol/L Chloride 98 (98-107) mmol/L Carbon Dioxide 31 H (22-29) mmol/L Anion Gap 13.4 (5-19) BUN 13 (8-23) mg/dL Creatinine 2.2 H (0.7-1.2) mg/dL GFR Calculation 30.3 L (90-130) mL/min Glucose 130 H (65-115) mg/dL Calculated Osmolal ity 284 L (285-295) mOsm/k g Calcium 9.1 (8.5-10.5) mg/dL Magnesium 1.7 (1.7-2.3) mg/dL Total Bilirubin 0.2 (0.15-1.2) mg/dL AST 16 (0-40) U/L ALT 21 (0-41) U/L Alkaline Phosphata se 82 (40-130) IU/L Troponin T Baselin e (0-15) ng/L Troponin T 120 Min [place] (0-15) ng/L Delta Troponin T (0-10) ABS# Total Protein 6.9 (6.6-8.7) g/dL Albumin 4.0 (3.5-5.2) g/dL Globulin 2.9 (1.3-4.6) g/dL Urine Color (Yellow) Urine Appearance (CLEAR) Urine pH (5-7) Ur Specific Gravit y (1.005-1.030) Urine Protein (Negative) Urine Glucose (UA) (Normal) Urine Ketones (Negative) Urine Blood (Negative) Urine Nitrate (Negative) Urine Bilirubin (NEGATIVE) Prot Sulfosalicyli c Acd (Negative) Urine Urobilinogen (Negative) mg/dL Ur Leukocyte Darshana ase (Negative) Urine RBC (0-2) /hpf Urine WBC (0-5) /hpf Ur Squamous Epith Cells (0-5) Amorphous Sediment Urine Bacteria (NONE) Hyaline Casts Fine Granular Cast s /lpf 10/23/19 10/23/19 10/23/19 Range/Units 13:15 13:35 15:30 WBC (4.0-10.0) 10^3/ uL RBC (4.1-5.3) 10^6/u L Hgb (11.7-16.6) g/dL Hct (42.0-52.0) % MCV (80-94) fL MCH (28.0-34.0) pg MCHC (30.0-36.0) g/dL RDW (12.1-15.1) % Plt Count (130-400) 10^3/c mm MPV (7.4-10.4) fL Neut % (Auto) % Lymph % (Auto) % [place] % (Auto) % Eos % (Auto) % Baso % (Auto) % Neut # (Auto) (1.8-7.7) 10^3/u L Lymph # (Auto) (0.8-4.8) 10^3/u L [place] # (Auto) (0.2-0.9) 10^3/u L Eos # (Auto) (0.0-0.8) 10^3/u L Baso # (Auto) (0.0-0.1) 10^3/u L Nucleated RBC % (a uto) % Nucleated RBCs # /100WBC PT (12.1-14.9) SECO NDS INR (0.8-1.2) Sodium (136-145) mmol/L Potassium (3.5-5.1) mmol/L Chloride (98-107) mmol/L Carbon Dioxide (22-29) mmol/L Anion Gap (5-19) BUN (8-23) mg/dL Creatinine (0.7-1.2) mg/dL GFR Calculation (90-130) mL/min Glucose (65-115) mg/dL Calculated Osmolal ity (285-295) mOsm/k g Calcium (8.5-10.5) mg/dL Magnesium (1.7-2.3) mg/dL Total Bilirubin (0.15-1.2) mg/dL AST (0-40) U/L ALT (0-41) U/L Alkaline Phosphata se (40-130) IU/L Troponin T Baselin e 181 H* (0-15) ng/L Troponin T 120 Min [place] 188.8 H (0-15) ng/L Delta Troponin T 7.8 (0-10) ABS# Total Protein (6.6-8.7) g/dL Albumin (3.5-5.2) g/dL Globulin (1.3-4.6) g/dL Urine Color Yellow (Yellow) Urine Appearance Clear (CLEAR) Urine pH 5 (5-7) Ur Specific Gravit y 1.015 (1.005-1.030) Urine Protein 3+ H (Negative) Urine Glucose (UA) Norm (Normal) Urine Ketones Negative (Negative) Urine Blood Neg (Negative) Urine Nitrate Negative (Negative) Urine Bilirubin Neg (NEGATIVE) Prot Sulfosalicyli c Acd Negative (Negative) Urine Urobilinogen Norm (Negative) mg/dL Ur Leukocyte Darshana ase Negative (Negative) Urine RBC 0-4 H (0-2) /hpf Urine WBC None (0-5) /hpf Ur Squamous Epith Cells 0-4 H (0-5) Amorphous Sediment Not Reportable Urine Bacteria Trace (NONE) Hyaline Casts 5-10 H Fine Granular Cast s 0-4 H /lpf Imaging Data^: CXR: Attestation: I personally reviewed and interpreted this imaging study as follows: My impression: No acute cardiopulmonary findings. No pulmonary vascular congestion. Dialysis catheter with appropriate placement. Pelvis w/ Left Hip: Attestation: I personally reviewed and interpreted this imaging study as follows: My impression: No acute fractures dislocations. Degenerative changes to the left femoral head. Left femur: Attestation: I personally reviewed and interpreted this imaging study as follows: My impression: No acute fractures or other lesions noted Left knee: Attestation: I personally reviewed and interpreted this imaging study as follows: My impression: No acute fractures dislocations US venous Doppler left lower extremity: My impression: Tech interpretation -negative for DVT EKG Data^: EKG 1: Attestation: I personally reviewed and interpreted this EKG as follows: EKG interpretation date: 10/23/19 EKG interpretation time: 12:59 Interpretation: Normal sinus rhythm at 82 beats a minute, no blocks, normal intervals, no acute ST-T wave changes. EKG 2: Attestation: I personally reviewed and interpreted this EKG as follows: EKG interpretation date: 10/23/19 EKG interpretation time: 14:43 Interpretation: Normal sinus rhythm at 77 beats a minute, normal axis, no blocks, normal intervals, no acute ST-T wave changes Discharge Plan Discharge Patient Disposition: Placed in Observation Clinical Impression: Intractable pain, Inability to ambulate due to hip, Generalized weakness Condition: Stable Referrals: Carla Ceballos MD [Primary Care Provider] - Coding Level of Care Code ED Mail List Processor for Chg Fwd Exam Comprehensive
[2019-10-23 13:30] LABS: Basophils % 0.2 %; Eosinophils # 0.1 10^3/uL (0.0-0.8); Eosinophils % 1.4 %; Hematocrit 36.6 % (42.0-52.0); Hemoglobin 12.1 g/dL (11.7-16.6); Lymphocytes # 1.4 10^3/uL (0.8-4.8); Lymphocytes % 16.6 %; Mean Corpuscular HGB Conc 33.1 g/dL (30.0-36.0); Mean Corpuscular Hemoglobin 31.8 pg (28.0-34.0); Mean Corpuscular Volume 96.1 fL (80-94); Mean Platelet Volume 8.8 fL (7.4-10.4); Monocytes # 0.6 10^3/uL (0.2-0.9); Monocytes % 7.5 %; Neutrophils # 6.29 10^3/uL (1.8-7.7); Neutrophils % 73.9 %; Nucleated Red Blood Cells % 0 %; Platelet Count 261 10^3/cmm (130-400); Red Blood Count 3.81 10^6/uL (4.1-5.3); Red Cell Distribution Width 15.2 % (12.1-15.1); White Blood Count 8.5 10^3/uL (4.0-10.0)
[2019-10-23 13:42] LABS: INR 0.85 (0.8-1.2)
[2019-10-23 13:49] LABS: Alanine Aminotransferase 21 U/L (0-41); Alkaline Phosphatase 82 IU/L (40-130); Anion Gap 13.4 (5-19); Aspartate Amino Transferase 16 U/L (0-40); Blood Urea Nitrogen 13 mg/dL (8-23); Calcium 9.1 mg/dL (8.5-10.5); Carbon Dioxide 31 mmol/L (22-29); Chloride 98 mmol/L (98-107); Globulin 2.9 g/dL (1.3-4.6); Glomerular Filtration Rate 30.3 mL/min (90-130); Glucose 130 mg/dL (65-115); Magnesium 1.7 mg/dL (1.7-2.3); Osmolality Calculated 284 mOsm/kg (285-295); Potassium 4.4 mmol/L (3.5-5.1); Sodium 138 mmol/L (136-145); Total Bilirubin 0.2 mg/dL (0.15-1.2); Total Protein 6.9 g/dL (6.6-8.7)
[2019-10-23 13:52] LABS: Troponin(5th) Baseline 181 ng/L (0-15)
[2019-10-23 14:25] LABS: Specific Gravity, Urine 1.015 (1.005-1.030); Urine Appearance Clear (CLEAR); Urine Color Yellow (Yellow); pH Urine 5 (5-7)
[2019-10-23 14:26] LABS: Bilirubin Urine Neg (NEGATIVE); Blood Urine Neg (Negative); Glucose Urine UA Norm (Normal); Ketones Urine Negative (Negative); Leukocyte Esterase Urine Negative (Negative); Nitrate Urine Negative (Negative); Protein Urine 3+ (Negative); Sulfosalicylic Acid Urine Negative (Negative); Urobilinogen Urine Norm (Negative)
[2019-10-23 14:27] LABS: Add Urine Culture? No; Bacteria Urine TRACE; Fine Granular Casts Urine 0-4 /lpf; RBC Urine 0-4 /hpf (0-2); Squamous Epithelial Cell Urine 0-4 (0-5)
--- NOTE | 2019-10-23 14:53 | ECG_ITS ---
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 Measurements Intervals [place] Rate: 77 P: 80 [place]: 147 QRS: 27 QRSD: 94 T: 56 QT: 394 QTc: 446 Interpretive Statements SINUS RHYTHM Compared to ECG 10/23/2019 12:59:00 No significant changes Electronically Signed On 10-23-2019 23:48:07 CDT by Lam Murguia M.D. [id number]
--- NOTE | 2019-10-23 15:15 | XRR_ITS ---
PROCEDURE INFORMATION: Exam: XR Left Hip with Pelvis when Performed Exam date and time: 10/23/2019 3:16 PM Age: 64 years old Clinical indication: Hip pain; Left hip; Patient HX: No known injury TECHNIQUE: Imaging protocol: XR Left hip with pelvis when performed. Views: 2 or 3 views. COMPARISON: CT abdomen pelvis wo con [id number] 08/19/2019 5:01 PM FINDINGS: Bones/joints: There is chronic remodeling and sclerosis involving the left hip. There is symmetrical joint joint space narrowing seen. Multiple subchondral cyst is seen in the left femoral head. Generalized osteopenia is present. No acute fracture. The potential for avascular necrosis of the left femoral head cannot be ruled out. If clinical syndrome is persistent consider left hip MRI examination. Soft tissues: Vascular calcifications are seen in the left leg XR/XR hip LT 2-3V wo/w pel* [id number] IMPRESSION: 1. Chronic sclerosis and deformity left hip osteoarthritis. Rule out AVN. 2. Negative for acute fracture 3. Otherwise negative examination
--- NOTE | 2019-10-23 16:08 | PC.NURSE ---
Changed into gown, clothes in a personal garment bag.
[2019-10-23 16:15] LABS: Troponin 5 2HR Delta 7.8 ABS# (0-10)
[2019-10-23 16:19] LABS: Troponin 5 2HR 188.8 ng/L (0-15)
--- NOTE | 2019-10-23 16:23 | PC.NURSE ---
Tried to walk pt per Dr Manrique. Used a wheelchair for support. Pt stood only on right leg. Left leg stiffened straight and crossing over on top of right foot. States he can not use his left leg.
--- NOTE | 2019-10-23 16:36 | USCV_ITS ---
Helio Reynoso Age: 64 Gender: M : 1955 Exam Date: 10/23/2019 17:13 Ordering Phys: Gali Manrique DO Technologist: Mariah Stevenson Exam Location: [facility] [place] Indication: LLE PAIN HISTORY: LLE pain PROCEDURES: On the left side, the common femoral, superficial femoral, profunda femoral, popliteal, posterior tibial, greater saphenous veins, and the peroneal trunk were identified and interrogated in the standard fashion. These veins were found to be easily compressible with spontaneous blood flow. FINDINGS: Normal 2-D Doppler and augmentation and compressibility throughout the lower extremity venous structures. Additional imaging through the proximal calf veins also reveals no thrombus. Limited evaluation of the greater saphenous vein is patent with no thrombus.. Acute GSV thrombophlebitis. CONCLUSIONS No DVT left lower extremity. Superficial thrombophlebitis GSV. Dr. Tatyana Victor DO (Electronically Signed) Final Date: 24 October 2019 07:07 S
--- NOTE | 2019-10-23 16:36 | XRR_ITS ---
PROCEDURE INFORMATION: Exam: XR Left Femur Exam date and time: 10/23/2019 5:08 PM Age: 64 years old Clinical indication: Injury or trauma; Fall; Initial encounter; Blunt trauma; Thigh or upper leg; Left; Additional info: Pain TECHNIQUE: Imaging protocol: XR Left femur. Views: 2 views. COMPARISON: CR XR knee LT 3V* [id number] 10/23/2019 4:44 PM FINDINGS: Bones/joints: Severe degenerative change involving the left hip along with subchondral sclerosis and cyst. No acute bony injury or malalignment in the visualized left femur. Soft tissues: Skin folds. Vasculature: Vascular calcification. XR/XR femur LT min 2V* [id number] IMPRESSION: No acute bony injury or malalignment in the visualized left femur.
--- NOTE | 2019-10-23 16:36 | XRR_ITS ---
PROCEDURE INFORMATION: Exam: XR Left Knee Exam date and time: 10/23/2019 4:56 PM Age: 64 years old Clinical indication: Pain; Knee; Left TECHNIQUE: Imaging protocol: XR Left knee. Views: 3 views. COMPARISON: No relevant prior studies available. FINDINGS: Bones/joints: Negative for acute bony abnormality Soft tissues: Normal. XR/XR knee LT 3V* [id number] IMPRESSION: No acute findings.
--- NOTE | 2019-10-23 16:46 | PC.NURSE ---
Use venous doppler to find pedal pulse on left foot then was able to palpated weak pulse. Place an X on location of pulse on left foot.
[2019-10-23] MEDS: ipratropium-albuterol 3 mL Neb INHALATION ×2 (17:33→20:15)
[2019-10-23 18:06] LABS: NT Pro B Type Natriuretic Pept 2493 pg/mL (0-125)
[2019-10-23 18:07] LABS: Thyroid Stimulating Hormone 1.88 uIU/mL (0.27-4.20)
[2019-10-23 18:20] LABS: D Dimer 0.67 ug/mIFEU (0-0.59)
[2019-10-23 18:52] LABS: Iron 142 ug/dL (59-158); Percent Saturation 77.1 % (20-50); Procalcitonin 0.15 ng/mL (0-0.5); Total Iron Binding Capacity 184 mcg/dl; Unsaturated Iron Binding 42 ug/dL (112-347)
--- NOTE | 2019-10-23 18:53 | ECG_ITS ---
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 Measurements Intervals [place] Rate: 77 P: 84 MT: 146 QRS: 22 QRSD: 90 T: 67 QT: 390 QTc: 444 Interpretive Statements SINUS RHYTHM Compared to ECG 10/23/2019 14:43:15 No significant changes Nonspecific T wave changes [email or web address]'); Electronically Signed On 10-23-2019 23:54:32 CDT by Lam Murguia M.D. [id number]
[2019-10-23 19:33] LABS: Troponin 5 6HR Delta 3.2 ng/L (0-12)
[2019-10-23 19:34] LABS: Troponin 5 6HR 184.2 ng/L (0-15)
[2019-10-23] MEDS: budesonide 0.5 mg/2 mL Neb INHALATION (20:15)
--- NOTE | 2019-10-23 20:21 | PM.HP ---
Providers/Chief Complaint Admitting Physician: Lian Zarate MD Primary Care Provider: Carla Ceballos MD Chief Complaint: WEAKNESS AND LEFT SIDED HIP PAIN History of Present Illness Helio Reynoso is a 64 year old male with a past medical history of end-stage renal disease on dialysis Wednesday, hypothyroidism, hypertension, type 2 diabetes, who presented today after undergoing his dialysis session, returning home and then being unable to get up. He states he was extremely unsteady on his feet. This happened all of a sudden. There was no preceding trauma. Imaging in the ER was obtained which showed avascular necrosis of the hip. Dr. Monk from orthopedic service has been consulted. He denies any complaints of chest pain dyspnea palpitations or syncope at this present time. There is no complaint of loss of consciousness at any point. No focal weakness. Review of Systems General: Reports: 10 or more systems reviewed and unremarkable except in HPI and below Const: Denies: fever(s), chills or body aches Eyes: Denies: change in vision, blurry vision or photophobia ENMT: Reports: hoarseness; Denies: throat pain, enlarged tonsils, odynophagia or nasal congestion Card: Denies: chest pain, palpitations, irregular heart rhythm, edema, swelling of feet/ankles, lightheadedness, pre-syncope, dyspnea on exertion or orthopnea Resp: Denies: dyspnea, productive cough, non-productive cough, wheezing, stridor, pain on inspiration, change in phlegm color, hemoptysis or chest congestion GI: Denies: abdominal pain, nausea, vomiting, hematemesis, coffee ground emesis, dysphagia, heartburn, diarrhea, constipation, GI cramping, change in stool character, hematochezia or melena : Denies: flank pain, dysuria, urinary frequency, urinary urgency, urinary hesitancy or hematuria Musc: Denies: neck pain, back pain, extremity pain, joint swelling, joint warmth or deformity Neuro: Denies: headache(s), numbness in extremities, weakness in extremities, sensory changes, difficulty walking, frequent falls, dizziness, vertigo, behavioral changes, Slurred speech present or seizure-like activity Psych: Denies: anxiety, depression, suicidal ideation or homicidal ideation Endo: Denies: polyuria, polydipsia, tired all the time, cold intolerance or hot flashes Alfonso/Lymph: Denies: easy bruising or easy bleeding Medications/Allergies Home Medications Medication Instructions Recorded Confirmed Last Taken Type budesonide-formoterol [Symbicort] 2 puff INHALATION BID 03/15/19 10/23/19 10/23/19 History furosemide 80 mg PO BID 03/15/19 10/23/19 10/22/19 History levothyroxine 88 mcg PO DAILY 03/15/19 10/23/19 10/22/19 History metolazone 5 mg PO DAILY 03/15/19 10/23/19 10/22/19 History omega-3 fatty acids-fish oil [Fish 1 cap PO DAILY 03/15/19 10/23/19 10/22/19 History Oil] oxygen-air delivery systems #1 04/13/19 10/23/19 Unknown History amlodipine 10 mg tablet 10 mg PO DAILY tab 06/22/19 10/23/19 10/22/19 History RenaPlex-D 1 tab PO QPM 08/19/19 10/23/19 10/22/19 History lanthanum 1,500 mg PO TID 08/19/19 10/23/19 10/22/19 History Lantus U-100 Insulin 5 unit SUBCUT BID 30 Days #6 ml 08/23/19 10/23/19 10/22/19 Rx pantoprazole 80 mg PO BID 10/23/19 10/23/19 10/22/19 History Allergies Allergy/AdvReac Type Severity Reaction Status Date / Time No Known Allergies Allergy Verified 08/19/19 17:01 PFSH Acute PFSH: Medical History Blood transfusion abn reaction or complication, no procedure mishap Cataract disorder type 14 COPD (chronic obstructive pulmonary disease) COPD (chronic obstructive pulmonary disease) Diastolic congestive heart failure ESRD (end stage renal disease) Hypertension Hypothyroidism Insulin dependent type 2 diabetes mellitus Iron deficiency anemia Morbid obesity Nonalcoholic liver disease, chronic Secondary hyperparathyroidism Surgical History History of open reduction and internal fixation (ORIF) procedure S/P dialysis catheter insertion (08/30/19) Status post creation of arteriovenous fistula Family History Other CAD (coronary artery disease) Hyperlipidemia Hypertension Denies family history of Cancer Social History Smoking and tobacco status: former smoker Alcohol intake: never Household members: family and other Details: Lives with his mother History of recent travel: No Vitals/I&O/Wt Last Vital Signs Temp 97.6 F 10/23/19 18:46 Pulse 81 10/23/19 20:15 Resp 18 10/23/19 20:15 BP 168/92 10/23/19 18:46 Pulse Ox 95 10/23/19 20:15 Weight last 48 hrs Weight 87.09 kg Physical Exam Narrative: EXAM NARRATIVE: GEN: Awake, alert and oriented, no acute distress CVS: S1S2 N RS: CTA B/L Abd: Soft, nt/nd , bs+ 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 Data : 10/24/19 04:20 10/24/19 04:20 Micro: Microbiology 10/23/19 13:25 Blood Culture - Preliminary Blood SPECIMEN COLLECTED 10/23/19 13:15 Blood Culture - Preliminary Blood SPECIMEN COLLECTED A&P Assessment and plan (1) Inability to ambulate due to hip: Patient presented today with sudden inability to stand up. He was noted to have left hip osteoarthritis and suspicion for of avascular necrosis of the left hip. Awaiting evaluation by orthopedics Dr. Mar. Further recommendations for PT OT after orthopedics evaluation. Status: Acute (2) Osteoarthritis of left hip: Status: Acute (3) Hypertension: Currently well controlled, continue amlodipine Status: Acute (4) ESRD (end stage renal disease): Renal consulted to continue hemodialysis while patient remains inpatient. Status: Acute (5) Anemia: Status: Acute Qualifiers: Anemia type: due to chronic kidney disease Chronic kidney disease stage: on chronic dialysis Qualified Code(s): N18.6 - End stage renal disease; D63.1 - Anemia in chronic kidney disease; Z99.2 - Dependence on renal dialysis (6) Hypothyroidism: Continue home dose of levothyroxine Status: Acute (7) Diastolic congestive heart failure: Status: Acute (8) Altered mental status: Status: Acute Attestations Medical Necessity Statement*: Admitted in observation for further evaluation of the left hip, concern for avascular necrosis, awaiting orthopedic recommendations. Coding Level of Care Code Acute [employer] [place] Clerk for Chg Fwd Diagnoses Inability to ambulate due to hip R26.2 Osteoarthritis of left hip M16.12 Hypertension I10 ESRD (end stage renal disease) N18.6 Anemia N18.6; D63.1; Z99.2 Anemia type: due to chronic kidney disease Chronic kidney disease stage: on chronic dialysis Hypothyroidism E03.9 Diastolic congestive heart failure I50.30 Altered mental status R41.82
[2019-10-23] MEDS: heparin 5,000 unit/mL INJ 1 mL 5000 UNIT SUBCUT (21:10)
[2019-10-24] VITALS (12 sets, daily range): BP systolic 163–183; BP diastolic 70–77; PULSE 75–93; RESP 16–18; TEMP 36.7–37.2; O2SAT 92–96
[2019-10-24] MEDS: ipratropium-albuterol 3 mL Neb INHALATION ×3 (02:55→21:00)
[2019-10-24] MEDS: HYDROcodone-acetaminophen 5-325 mg Tablet 1 TAB PO ×3 (03:56→23:54)
[2019-10-24 04:56] LABS: Basophils % 0.3 %; Eosinophils # 0.2 10^3/uL (0.0-0.8); Eosinophils % 2.5 %; Hematocrit 36.8 % (42.0-52.0); Lymphocytes # 1.8 10^3/uL (0.8-4.8); Lymphocytes % 20.1 %; Mean Corpuscular HGB Conc 32.6 g/dL (30.0-36.0); Mean Corpuscular Hemoglobin 31.5 pg (28.0-34.0); Mean Corpuscular Volume 96.6 fL (80-94); Mean Platelet Volume 9.1 fL (7.4-10.4); Monocytes # 0.8 10^3/uL (0.2-0.9); Monocytes % 9.3 %; Neutrophils # 5.94 10^3/uL (1.8-7.7); Neutrophils % 67.5 %; Nucleated Red Blood Cells % 0 %; Platelet Count 275 10^3/cmm (130-400); Red Blood Count 3.81 10^6/uL (4.1-5.3); White Blood Count 8.8 10^3/uL (4.0-10.0)
[2019-10-24 05:27] LABS: Estmated Average Glucose 114; Hemoglobin A1C 5.6 % (4.0-6.0)
[2019-10-24 05:39] LABS: Alanine Aminotransferase 21 U/L (0-41); Albumin Level 3.8 g/dL (3.5-5.2); Alkaline Phosphatase 76 IU/L (40-130); Anion Gap 15.1 (5-19); Aspartate Amino Transferase 22 U/L (0-40); Blood Urea Nitrogen 19 mg/dL (8-23); Calcium 9.1 mg/dL (8.5-10.5); Carbon Dioxide 26 mmol/L (22-29); Chloride 101 mmol/L (98-107); Globulin 2.8 g/dL (1.3-4.6); Glucose 79 mg/dL (65-115); Osmolality Calculated 281 mOsm/kg (285-295); Potassium 4.1 mmol/L (3.5-5.1); Sodium 138 mmol/L (136-145); Total Bilirubin 0.3 mg/dL (0.15-1.2); Total Protein 6.6 g/dL (6.6-8.7)
--- NOTE | 2019-10-24 07:55 | PM.CONSULT ---
Providers/Reason For Consult Consulting Physican/Specialty*: Vin Mar MD; orthopedic surgery Reason for Consult*: Osteoarthritis left hip Attending Physician: Lian Zarate MD Primary Care Provider: Carla Ceballos MD History of Present Illness History of Present Illness Helio Reynoso is a 64 year old male presents with generalized weakness and pain in his left hip. He is a chronic dialysis patient and apparently after dialysis yesterday became weak and tired. He allegedly drove himself home but had difficulty walking from his car. EMS was called and he was transferred by EMS to our emergency room. In the emergency room he began complaining of increasing pain in his left hip. 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 He states he is always had some pain over the past 2 weeks it is been more of a problem. He alleges that he uses a walker during dialysis but not at home. He denies any recent trauma. Review of Systems Const: Denies: fever(s) or chills Meds/Allergies Home Medications and Allergies Home Medications Medication Instructions Recorded Confirmed Last Taken Type budesonide-formoterol [Symbicort] 2 puff INHALATION BID 03/15/19 10/23/19 10/23/19 History furosemide 80 mg PO BID 03/15/19 10/23/19 10/22/19 History levothyroxine 88 mcg PO DAILY 03/15/19 10/23/19 10/22/19 History metolazone 5 mg PO DAILY 03/15/19 10/23/19 10/22/19 History omega-3 fatty acids-fish oil [Fish 1 cap PO DAILY 03/15/19 10/23/19 10/22/19 History Oil] oxygen-air delivery systems #1 04/13/19 10/23/19 Unknown History amlodipine 10 mg tablet 10 mg PO DAILY tab 06/22/19 10/23/19 10/22/19 History RenaPlex-D 1 tab PO QPM 08/19/19 10/23/19 10/22/19 History lanthanum 1,500 mg PO TID 08/19/19 10/23/19 10/22/19 History Lantus U-100 Insulin 5 unit SUBCUT BID 30 Days #6 ml 08/23/19 10/23/19 10/22/19 Rx pantoprazole 80 mg PO BID 10/23/19 10/23/19 10/22/19 History Allergies Allergy/AdvReac Type Severity Reaction Status Date / Time No Known Allergies Allergy Verified 08/19/19 17:01 Current Medications Current Medications Generic Name Dose Route Start Last Admin Trade Name Freq PRN Reason Stop Dose Admin Hydrocodone Bitart/Acetaminophen 1 tab 10/23/19 19:36 10/24/19 03:56 [place] 5-325 Mg PO 1 tab Q4H PRN Administration MODERATE TO SEVERE PAIN Albuterol/Ipratropium 3 ml 10/23/19 21:00 10/24/19 02:55 Duoneb INHALATION 3 ml Q6H.RESPIRATORY LENNIE Administration Budesonide 0.5 mg 10/23/19 20:00 10/23/19 20:15 Pulmicort INHALATION 0.5 mg BID.RESPIRATORY LENNIE Administration Heparin Sodium (Beef Lung) 5,000 unit 10/23/19 21:00 10/23/19 21:10 Heparin SUBCUT 5,000 unit Q12H LENNIE Administration PFSH Acute PFSH: Medical History Blood transfusion abn reaction or complication, no procedure mishap Cataract disorder type 14 COPD (chronic obstructive pulmonary disease) COPD (chronic obstructive pulmonary disease) Diastolic congestive heart failure ESRD (end stage renal disease) Hypertension Hypothyroidism Insulin dependent type 2 diabetes mellitus Iron deficiency anemia Morbid obesity Nonalcoholic liver disease, chronic Secondary hyperparathyroidism Surgical History History of open reduction and internal fixation (ORIF) procedure S/P dialysis catheter insertion (08/30/19) Status post creation of arteriovenous fistula Family History Other CAD (coronary artery disease) Hyperlipidemia Hypertension Denies family history of Cancer Social History Smoking and tobacco status: former smoker Alcohol intake: never Household members: family and other Details: Lives with his mother History of recent travel: No Vitals/I&O/Wt Last Vital Signs Temp 98.1 F 10/24/19 07:49 Pulse 84 10/24/19 07:49 Resp 18 10/24/19 07:49 BP 183/77 10/24/19 07:49 Pulse Ox 92 10/24/19 07:49 Weight last 48 hrs Weight 192 lb Physical Exam Narrative: EXAM NARRATIVE: Mr. Reynoso is a supine in bed sitting comfortably with his left hip flexed. He answers questions appropriately. His left hip can be flexed to 90 degrees, he can be externally rotated 30 degrees. He can be internally rotated to approximately 20 degrees short of neutral. There is some mild pain with extremes of motion. Skin is intact over the left hip. He will flex and extend his left toes and ankle without any motor deficits. There is no pain with motion or palpation of his right lower or upper extremities. Data Micro: Micro: Microbiology 10/23/19 13:25 Blood Culture - Pr eliminary Blood SPECIMEN [facility] 10/23/19 13:15 Blood Culture - Pr eliminary Blood SPECIMEN [facility] A&P Assessment and plan (1) Osteoarthritis of left hip: I told the patient the only option I really would have for him be left total hip arthroplasty. This would be an elective procedure that could be considered perhaps as an outpatient procedure. Patient has multiple medical comorbidities including end-stage renal failure and diabetes. This would best be handled at a referring facility. Once medically optimized and discharged he can consider evaluation in [place] or [place] for candidacy. For now I will get him a walker for discharge. Medical management of pain can be addressed by the primary team if they feel warranted Status: Acute Coding Level of Care Code Acute Policy Value Calculator for Brynn Castro Diagnoses Osteoarthritis of left hip M16.12
[2019-10-24] MEDS: heparin 5,000 unit/mL INJ 1 mL 5000 UNIT SUBCUT ×2 (08:03→19:27)
[2019-10-24] MEDS: levothyroxine 88 mcg Tablet PO (08:03)
[2019-10-24] MEDS: amlodipine 10 mg Tablet PO (08:03)
[2019-10-24] MEDS: FUROsemide 40 mg Tablet 80 MG PO ×2 (08:03→17:04)
[2019-10-24] MEDS: pantoprazole DR 40 mg Tablet 80 MG PO ×2 (08:03→17:04)
[2019-10-24] MEDS: metOLazone 5 MG Tablet PO (08:03)
[2019-10-24 08:38] LABS: Glucose Point of Care 80 mg/dL (70-110)
--- NOTE | 2019-10-24 09:50 | P.CONIM_ITS ---
Providers/Reason For Consult Consulting Physican/Specialty*: telenephrology/ felicia kay md Reason for Consult*: ESRD care Attending Physician: Lian Zarate MD Primary Care Provider: Carla Ceballos MD History of Present Illness History of Present Illness Helio Reynoso is a 64 year old male ESRD, dm, hypothyroidiam, copd, diastolic dysfunction, anemia, secondary hyperparathyroidism. Pt admitted w/ hip pain. renal called for ESRD care. Review of Systems General: Reports: 10 or more systems reviewed and unremarkable except in HPI and below Narrative: left hip pain- says hip locked, cant walk. has chroinic sob, edema, htn Meds/Allergies Home Medications and Allergies Home Medications Medication Instructions Recorded Confirmed Last Taken Type budesonide-formoterol [Symbicort] 2 puff INHALATION BID 03/15/19 10/23/19 10/23/19 History furosemide 80 mg PO BID 03/15/19 10/23/19 10/22/19 History levothyroxine 88 mcg PO DAILY 03/15/19 10/23/19 10/22/19 History metolazone 5 mg PO DAILY 03/15/19 10/23/19 10/22/19 History omega-3 fatty acids-fish oil [Fish 1 cap PO DAILY 03/15/19 10/23/19 10/22/19 History Oil] oxygen-air delivery systems #1 04/13/19 10/23/19 Unknown History amlodipine 10 mg tablet 10 mg PO DAILY tab 06/22/19 10/23/19 10/22/19 History RenaPlex-D 1 tab PO QPM 08/19/19 10/23/19 10/22/19 History lanthanum 1,500 mg PO TID 08/19/19 10/23/19 10/22/19 History Lantus U-100 Insulin 5 unit SUBCUT BID 30 Days #6 ml 08/23/19 10/23/19 10/22/19 Rx pantoprazole 80 mg PO BID 10/23/19 10/23/19 10/22/19 History Allergies Allergy/AdvReac Type Severity Reaction Status Date / Time No Known Allergies Allergy Verified 08/19/19 17:01 Current Medications Current Medications Generic Name Dose Route Start Last Admin Trade Name Freq PRN Reason Stop Dose Admin Hydrocodone Bitart/Acetaminophen 1 tab 10/23/19 19:36 10/24/19 09:33 [place] 5-325 Mg PO 1 tab Q4H PRN Administration MODERATE TO SEVERE PAIN Albuterol/Ipratropium 3 ml 10/23/19 21:00 10/24/19 02:55 Duoneb INHALATION 3 ml Q6H.RESPIRATORY LENNIE Administration Amlodipine Besylate 10 mg 10/24/19 09:00 10/24/19 08:03 Norvasc PO 10 mg DAILY LENNIE Administration Budesonide 0.5 mg 10/23/19 20:00 10/23/19 20:15 Pulmicort INHALATION 0.5 mg BID.RESPIRATORY LENNIE Administration Furosemide 80 mg 10/24/19 09:00 10/24/19 08:03 Lasix PO 80 mg BID LENNIE Administration Heparin Sodium (Beef Lung) 5,000 unit 10/23/19 21:00 10/24/19 08:03 Heparin SUBCUT 5,000 unit Q12H LENNIE Administration Insulin Glargine 5 unit 10/24/19 09:00 10/24/19 08:02 Lantus SUBCUT Not Given BID LENNIE Levothyroxine Sodium 88 mcg 10/24/19 09:00 10/24/19 08:03 Synthroid PO 88 mcg DAILY LENNIE Administration Metolazone 5 mg 10/24/19 09:00 10/24/19 08:03 Zaroxolyn PO 5 mg DAILY LENNIE Administration Non-Formulary Medication 1 cap 10/24/19 09:00 10/24/19 08:05 [place]-3 Fatty Acids-Fish Oil [Fish Oil] PO Not Given DAILY LENNIE Pantoprazole Sodium 80 mg 10/24/19 09:00 10/24/19 08:03 Protonix PO 80 mg BID LENNIE Administration PFSH Acute PFSH: Medical History Blood transfusion abn reaction or complication, no procedure mishap Cataract disorder type 14 COPD (chronic obstructive pulmonary disease) COPD (chronic obstructive pulmonary disease) Diastolic congestive heart failure ESRD (end stage renal disease) Hypertension Hypothyroidism Insulin dependent type 2 diabetes mellitus Iron deficiency anemia Morbid obesity Nonalcoholic liver disease, chronic Secondary hyperparathyroidism Surgical History History of open reduction and internal fixation (ORIF) procedure S/P dialysis catheter insertion (08/30/19) Status post creation of arteriovenous fistula Family History Other CAD (coronary artery disease) Hyperlipidemia Hypertension Denies family history of Cancer Social History Smoking and tobacco status: former smoker Alcohol intake: never Household members: family and other Details: Lives with his mother History of recent travel: No Vitals/I&O/Wt Last Vital Signs Temp 98.1 F 10/24/19 07:49 Pulse 84 10/24/19 07:49 Resp 18 10/24/19 07:49 BP 183/77 10/24/19 07:49 Pulse Ox 92 10/24/19 07:49 10/23/19 10/24/19 10/24/19 22:59 06:59 14:59 Intake Total 120 / 120 Balance 120 / 120 Weight last 48 hrs Weight 87.09 kg Physical Exam Narrative: EXAM NARRATIVE: obese, comfortable in chair, NARD VS noted exam by RN as telemedicine visit bp eleavted heent- nc/at, eomi, anicteric neck supple lungs dull bases RT ACW PC heart reg abd soft, nt, nd, +BS ext edema neuro- a,a, o x 3 Data Micro: Micro: Microbiology 10/23/19 13:25 Blood Culture - Pr eliminary Blood SPECIMEN [facility] SHERIE 10/23/19 13:15 Blood Culture - Pr eliminary Blood SPECIMEN [facility] A&P Additional A&P Information 64 yr old man 1. ESRD- HD MWF 2. hgb excellent 3. hip pain as per orthopedics 4. htn- cont outpt meds. challenge fluid removal on HD in am 5. check tsh on levothyroxine Consult Attestations Medical Necessity Statement: per hospitalist Time Spent in Patient Care: Greater than 35 minutes Coding Level of Care Code Acute Electronics Engineering Technician for Brynn Castro
[2019-10-24 10:51] LABS: Hepatitis B Surface AB 3.5 (0-8.5); Hepatitis B Surface Antigen Non-Reactive (Nonreactive); Hepatitis C Virus Antibody Non-Reactive (Nonreactive)
--- NOTE | 2019-10-24 11:02 | PC.CHAP ---
Pastoral Care Encounter/Spiritual Assessment Type of Contact [] Declined tube winder visit [] Patient/Family/Request visit [] Outpatient visit [] Follow-up visit [] Physician referral [] Code/Alert [x] Routine visit [] Staff referral [] Actively dying [] Patient sleeping [] Family support [] [] Out of room [] Palliative care [] [] Receiving care in room [] Pre-surgical visit [] Trauma [] Long length of stay [] ICU visit [] Other: Relational/Emotional Strength [x] Patient feels connected with others/family/visitors/staff [] Distress [] Loneliness/isolation [] Abandonment Spirituality of Patient [x] Person of Bhavana [] Attends Yazidism of their Bhavana [x] Believes in Prayer [] Reads Bible or Pentecostal materials [] There are Spiritual issues to be addressed Overnight Cashier Interventions [x] Prayer [x] Active listening [x] Non-anxious presence [x] Spiritual/emotional support [] Crisis/trauma care [] Spiritual counseling [] Bereavement support [] Provided bereavement packet [] Provided Bible/devotional materials [] Provided toy/stuffed animal, coloring book to patient or family member [] Provided Communion [] Anointing/Hanna [] Salvation [x] Completed spiritual assessment [] Other: Impact on Illness or Injury [] Angry [] Fearful [] Anxious [] Often cries [] Exhaustion [] Unable to work [] Unable to attend pentecostalism [] Unable to walk/stand [] Unable to read [] Unable to drive [] Unable to eat/drink [] Unable to sleep [] Unable to be with family [] Patient intubated [] Other: Summary Chaplains Jesús prayed with patient. Time spent with patient 8 minutes.
--- NOTE | 2019-10-24 15:46 | P.PN_ITS ---
Subjective Subjective: Interval history: No new complaints today. Continues to complain of pain at the left hip. Seen by physical therapy this morning, recommended SNF due to severe deficits and weakness. Per Ortho would need left hip arthroplasty down the line as an outpatient, referred him to a higher referral center for the above in view of multiple comorbidities. 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 He was noted to have left hip osteoarthritis and suspicion for of avascular necrosis of the left hip. Appreciate orthopedics evaluation. Patient will need a left hip he miarthroplasty as an outpatient, he has been referred from orthopedics site to a higher center in view of multiple comorbidities. PT OT assessment done today. Recommended SNF given severity of deficits. Care coordination working on getting patient placed at a rehab facility. Status: Acute (2) Osteoarthritis of left hip: Status: Acute (3) Hypertension: Currently well controlled, continue amlodipine Status: Acute (4) ESRD (end stage renal disease): Renal consulted to continue hemodialysis while patient remains inpatient. Status: Acute (5) Anemia: Status: Acute Qualifiers: Anemia type: due to chronic kidney disease Chronic kidney disease stage: on chronic dialysis Qualified Code(s): N18.6 - End stage renal disease; D63.1 - Anemia in chronic kidney disease; Z99.2 - Dependence on renal dialysis (6) Hypothyroidism: Continue home dose of levothyroxine Status: Acute (7) Diastolic congestive heart failure: Status: Acute Attestations Medical Necessity Statement*: Change patient to inpatient status as he will need 3 midnights to qualify for Medicare to be [facility] a [facility] facility. Coding Level of Care Code Acute Director Of People for g Fwd Diagnoses Inability to ambulate due to hip R26.2 Osteoarthritis of left hip M16.12 Hypertension I10 ESRD (end stage renal disease) N18.6 Anemia N18.6; D63.1; Z99.2 Anemia type: due to chronic kidney disease Chronic kidney disease stage: on chronic dialysis Hypothyroidism E03.9 Diastolic congestive heart failure I50.30
[2019-10-24 16:46] LABS: Glucose Point of Care 115 mg/dL (70-110)
[2019-10-24] MEDS: insulin glargine 100 units/1 mL 5 UNIT SUBCUT (17:05)
--- NOTE | 2019-10-24 18:07 | PC.NURSE ---
SHIFT SUMMARY PATIENT HAS COMPLAINED OF MINIMAL PAIN TODAY. BLOOD PRESSURE HAS BEEN ELEVATED, PHYSICIAN NOTIFIED. PATIENT STATED I HAVEN'T BEEN TAKING MY BLOOD PRESSURE MEDICATION FOR AT LEAST A COUPLE OF DAYS. CASSIA OZUNA ADMINISTERED BLOOD PRESSURE MEDICATIONS. CONTINUING TO MONITOR. PATIENT WORKED WITH PHYSICAL THERAPY. WILL NEED ASSISTANCE AMBULATING AT THIS TIME. GOOD URINE OUTPUT. PLAN IS FOR DIALYSIS TOMORROW. CURRENTLY RESTING IN BED. NO COMPLAINTS AT THIS TIME.
[2019-10-24] MEDS: budesonide 0.5 mg/2 mL Neb INHALATION (21:00)
[2019-10-25] VITALS (11 sets, daily range): BP systolic 119–173; BP diastolic 64–78; PULSE 82–105; RESP 16–18; TEMP 36.4–37.2; O2SAT 93–99
[2019-10-25] MEDS: ipratropium-albuterol 3 mL Neb INHALATION ×3 (03:50→20:43)
[2019-10-25 05:09] LABS: Basophils % 0.4 %; Eosinophils # 0.3 10^3/uL (0.0-0.8); Eosinophils % 2.7 %; Hematocrit 36.4 % (42.0-52.0); Hemoglobin 11.8 g/dL (11.7-16.6); Lymphocytes # 2.4 10^3/uL (0.8-4.8); Lymphocytes % 25.7 %; Mean Corpuscular HGB Conc 32.4 g/dL (30.0-36.0); Mean Corpuscular Hemoglobin 31.6 pg (28.0-34.0); Mean Corpuscular Volume 97.6 fL (80-94); Monocytes # 0.8 10^3/uL (0.2-0.9); Neutrophils # 5.68 10^3/uL (1.8-7.7); Neutrophils % 61.8 %; Nucleated Red Blood Cells % 0 %; Platelet Count 288 10^3/cmm (130-400); Red Blood Count 3.73 10^6/uL (4.1-5.3); White Blood Count 9.2 10^3/uL (4.0-10.0)
[2019-10-25 05:30] LABS: Alanine Aminotransferase 22 U/L (0-41); Alkaline Phosphatase 81 IU/L (40-130); Aspartate Amino Transferase 21 U/L (0-40); Blood Urea Nitrogen 28 mg/dL (8-23); Calcium 9.3 mg/dL (8.5-10.5); Carbon Dioxide 28 mmol/L (22-29); Chloride 99 mmol/L (98-107); Glomerular Filtration Rate 17.2 mL/min (90-130); Glucose 132 mg/dL (65-115); Magnesium 1.7 mg/dL (1.7-2.3); Osmolality Calculated 287 mOsm/kg (285-295); Sodium 139 mmol/L (136-145); Total Bilirubin 0.3 mg/dL (0.15-1.2)
[2019-10-25 05:45] LABS: Calcium 9.3 mg/dL (8.5-10.5); Parathyroid Hormone 73.3 pg/mL (15-65)
[2019-10-25 07:00] LABS: Glucose Point of Care 136 mg/dL (70-110)
--- NOTE | 2019-10-25 07:28 | PM.PN ---
Subjective Subjective: Interval history: c/o hip pain. no n/v/f/cp/blankenship Medications: Reviewed: Yes Medication Review Details: Current Medications Hydrocodone Bitart/Acetaminophen ([place] 5-325 Mg) 1 tab PO Q4H PRN PRN Reason: MODERATE TO SEVERE PAIN Last Admin: 10/24/19 23:54 Dose: 1 tab Documented by: Albuterol/Ipratropium (Duoneb) 3 ml INHALATION Q6H.RESPIRATORY [facility] Last Admin: 10/25/19 03:50 Dose: 3 ml Documented by: Amlodipine Besylate (Norvasc) 10 mg PO DAILY [facility] Last Admin: 10/24/19 08:03 Dose: 10 mg Documented by: Bisacodyl (Dulcolax) 10 mg PO DAILY PRN PRN Reason: CONSTIPATION Budesonide (Pulmicort) 0.5 mg INHALATION BID.RESPIRATORY [facility] Last Admin: 10/24/19 21:00 Dose: 0.5 mg Documented by: Furosemide (Lasix) 80 mg PO BID [facility] Last Admin: 10/24/19 17:04 Dose: 80 mg Documented by: Heparin Sodium (Beef Lung) (Heparin) 5,000 unit SUBCUT Q12H [facility] Last Admin: 10/24/19 19:27 Dose: 5,000 unit Documented by: Insulin Glargine (Lantus) 5 unit SUBCUT BID [facility] Last Admin: 10/24/19 17:05 Dose: 5 unit Documented by: Levothyroxine Sodium (Synthroid) 88 mcg PO DAILY [facility] Last Admin: 10/24/19 08:03 Dose: 88 mcg Documented by: Metolazone (Zaroxolyn) 5 mg PO DAILY [facility] Last Admin: 10/24/19 08:03 Dose: 5 mg Documented by: Non-Formulary Medication (Vit B,L-Wa-Hqzt-Selen-Vit D3-E [Renaplex-D]) 1 tab PO QPM [facility] Last Admin: 10/24/19 17:34 Dose: Not Given Documented by: Non-Formulary Medication ([place]-3 Fatty Acids-Fish Oil [Fish Oil]) 1 cap PO DAILY [facility] Last Admin: 10/24/19 08:05 Dose: Not Given Documented by: Ondansetron HCl (Zofran) 4 mg IVP Q6H PRN PRN Reason: NAUSEA AND VOMITING Pantoprazole Sodium (Protonix) 80 mg PO BID [facility] Last Admin: 10/24/19 17:04 Dose: 80 mg Documented by: Vitals/I&O/Wt Last Vital Signs Temp 98.0 F 10/25/19 03:41 Pulse 90 10/25/19 03:55 Resp 18 10/25/19 03:50 BP 173/78 10/25/19 03:41 Pulse Ox 94 10/25/19 03:50 10/24/19 10/25/19 10/25/19 22:59 06:59 14:59 Intake Total 240 / 680 60 / 740 Output Total 300 / 500 500 / 1000 Balance -60 / 180 -440 / -260 Weight last 48 hrs Weight 87.09 kg Physical Exam Narrative: EXAM NARRATIVE: obese, comfortable in bed, NARD VS noted exam by RN as telemedicine visit bp eleavted heent- nc/at, eomi, anicteric neck supple lungs dull bases RT ACW PC heart reg abd soft, nt, nd, +BS ext edema, left hip pain neuro- a,a, o x 3 Data : 10/25/19 04:37 10/25/19 04:37 Micro: Microbiology 10/23/19 13:25 Blood Culture - Preliminary Blood NEGATIVE TO DATE 10/23/19 13:15 Blood Culture - Preliminary Blood NEGATIVE TO DATE A&P Additional A&P Information 64 yr old man 1. ESRD- HD MWF- 3.5 hrs, 3k, 2l fluid removal 2. hgb excellent 3. hip pain as per orthopedics 4. htn- cont outpt meds. challenge fluid removal on HD 5. normal tsh on levothyroxine 6. pth -73- no vit d analouge Attestations Medical Necessity Statement*: hip pain per pmd Time Spent in Patient Care: 16 - 35 minutes Coding Level of Care Code Acute Pulverizer Tender for Brynn Castro
[2019-10-25] MEDS: amlodipine 10 mg Tablet PO (08:30)
[2019-10-25] MEDS: FUROsemide 40 mg Tablet 80 MG PO ×2 (08:30→17:57)
[2019-10-25] MEDS: pantoprazole DR 40 mg Tablet 80 MG PO ×2 (08:30→17:57)
[2019-10-25] MEDS: levothyroxine 88 mcg Tablet PO (08:31)
[2019-10-25] MEDS: HYDROcodone-acetaminophen 5-325 mg Tablet 1 TAB PO ×2 (08:31→20:54)
[2019-10-25] MEDS: heparin 5,000 unit/mL INJ 1 mL 5000 UNIT SUBCUT ×2 (08:33→20:54)
[2019-10-25] MEDS: insulin glargine 100 units/1 mL 5 UNIT SUBCUT ×2 (08:39→17:56)
--- NOTE | 2019-10-25 15:28 | PM.PN ---
Subjective Subjective: Interval history: No new complaints today. Patient underwent dialysis this morning. 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 He was noted to have left hip osteoarthritis and suspicion for of avascular necrosis of the left hip. Appreciate orthopedics evaluation. Patient will need a left hip hemiarthroplasty as an outpatient, he has been referred from orthopedics site to a higher center in view of multiple comorbidities. PT OT assessment done today. Recommended SNF given severity of deficits. Care coordination working on getting patient placed at a rehab facility for PT Status: Acute (2) Osteoarthritis of left hip: Status: Acute (3) Hypertension: Currently well controlled, continue amlodipine Status: Acute (4) ESRD (end stage renal disease): Renal consulted to continue hemodialysis while patient remains inpatient. scheduled MWF Status: Acute (5) Anemia: Status: Acute Qualifiers: Anemia type: due to chronic kidney disease Chronic kidney disease stage: on chronic dialysis Qualified Code(s): N18.6 - End stage renal disease; D63.1 - Anemia in chronic kidney disease; Z99.2 - Dependence on renal dialysis (6) Hypothyroidism: Continue home dose of levothyroxine Status: Acute (7) Diastolic congestive heart failure: Status: Acute Attestations Medical Necessity Statement*: Awaiting placement at alf facility for rehab. Coding Level of Care Code Acute Key Carrier for Brynn Castro Diagnoses Inability to ambulate due to hip R26.2 Osteoarthritis of left hip M16.12 Hypertension I10 ESRD (end stage renal disease) N18.6 Anemia N18.6; D63.1; Z99.2 Anemia type: due to chronic kidney disease Chronic kidney disease stage: on chronic dialysis Hypothyroidism E03.9 Diastolic congestive heart failure I50.30
[2019-10-25 17:15] LABS: Glucose Point of Care 143 mg/dL (70-110)
[2019-10-25] MEDS: budesonide 0.5 mg/2 mL Neb INHALATION (20:43)
[2019-10-25 21:15] LABS: Glucose Point of Care 134 mg/dL (70-110)
[2019-10-26] VITALS (14 sets, daily range): BP systolic 122–158; BP diastolic 64–79; PULSE 78–109; RESP 16–18; TEMP -13.4–37.2; O2SAT 92–99
[2019-10-26] MEDS: ipratropium-albuterol 3 mL Neb INHALATION ×2 (02:33→08:57)
[2019-10-26 05:00] LABS: Basophils # 0.1 10^3/uL (0.0-0.1); Basophils % 0.5 %; Eosinophils # 0.2 10^3/uL (0.0-0.8); Eosinophils % 2.3 %; Hematocrit 39.8 % (42.0-52.0); Hemoglobin 12.6 g/dL (11.7-16.6); Lymphocytes # 2.1 10^3/uL (0.8-4.8); Lymphocytes % 20.6 %; Mean Corpuscular HGB Conc 31.7 g/dL (30.0-36.0); Mean Corpuscular Hemoglobin 31.7 pg (28.0-34.0); Mean Corpuscular Volume 100.3 fL (80-94); Neutrophils # 6.76 10^3/uL (1.8-7.7); Neutrophils % 66.1 %; Nucleated Red Blood Cells % 0 %; Platelet Count 265 10^3/cmm (130-400); Red Blood Count 3.97 10^6/uL (4.1-5.3); Red Cell Distribution Width 15.1 % (12.1-15.1); White Blood Count 10.2 10^3/uL (4.0-10.0)
[2019-10-26 05:30] LABS: Alanine Aminotransferase 25 U/L (0-41); Alkaline Phosphatase 85 IU/L (40-130); Anion Gap 17.1 (5-19); Aspartate Amino Transferase 21 U/L (0-40); Blood Urea Nitrogen 21 mg/dL (8-23); Calcium 9.5 mg/dL (8.5-10.5); Carbon Dioxide 27 mmol/L (22-29); Chloride 97 mmol/L (98-107); Globulin 3.1 g/dL (1.3-4.6); Glomerular Filtration Rate 14.8 mL/min (90-130); Glucose 140 mg/dL (65-115); Magnesium 1.9 mg/dL (1.7-2.3); Osmolality Calculated 283 mOsm/kg (285-295); Phosphorus 3.9 mg/dL (2.5-4.5); Potassium 4.1 mmol/L (3.5-5.1); Sodium 137 mmol/L (136-145); Total Bilirubin 0.3 mg/dL (0.15-1.2); Total Protein 7.1 g/dL (6.6-8.7)
[2019-10-26] MEDS: HYDROcodone-acetaminophen 5-325 mg Tablet 1 TAB PO ×2 (06:16→19:55)
--- NOTE | 2019-10-26 07:01 | PM.PN ---
Subjective Subjective: Interval history: c/o hip pain. no other complaints Medications: Reviewed: Yes Medication Review Details: Current Medications Hydrocodone Bitart/Acetaminophen ([place] 5-325 Mg) 1 tab PO Q4H PRN PRN Reason: MODERATE TO SEVERE PAIN Last Admin: 10/26/19 06:16 Dose: 1 tab Documented by: Albuterol/Ipratropium (Duoneb) 3 ml INHALATION Q6H.RESPIRATORY [facility] Last Admin: 10/26/19 02:33 Dose: 3 ml Documented by: Amlodipine Besylate (Norvasc) 10 mg PO DAILY [facility] Last Admin: 10/25/19 08:30 Dose: 10 mg Documented by: Bisacodyl (Dulcolax) 10 mg PO DAILY PRN PRN Reason: CONSTIPATION Budesonide (Pulmicort) 0.5 mg INHALATION BID.RESPIRATORY [facility] Last Admin: 10/25/19 20:43 Dose: 0.5 mg Documented by: Furosemide (Lasix) 80 mg PO BID [facility] Last Admin: 10/25/19 17:57 Dose: 80 mg Documented by: Heparin Sodium (Beef Lung) (Heparin) 5,000 unit SUBCUT Q12H [facility] Last Admin: 10/25/19 20:54 Dose: 5,000 unit Documented by: Insulin Glargine (Lantus) 5 unit SUBCUT BID [facility] Last Admin: 10/25/19 17:56 Dose: 5 unit Documented by: Levothyroxine Sodium (Synthroid) 88 mcg PO DAILY [facility] Last Admin: 10/25/19 08:31 Dose: 88 mcg Documented by: Non-Formulary Medication (Vit B,F-If-Aunj-Selen-Vit D3-E [Renaplex-D]) 1 tab PO QPM [facility] Last Admin: 10/25/19 17:15 Dose: Not Given Documented by: Non-Formulary Medication ([place]-3 Fatty Acids-Fish Oil [Fish Oil]) 1 cap PO DAILY [facility] Last Admin: 10/25/19 08:40 Dose: Not Given Documented by: Ondansetron HCl (Zofran) 4 mg IVP Q6H PRN PRN Reason: NAUSEA AND VOMITING Pantoprazole Sodium (Protonix) 80 mg PO BID [facility] Last Admin: 10/25/19 17:57 Dose: 80 mg Documented by: Vitals/I&O/Wt Last Vital Signs Temp 98.9 F 10/26/19 04:00 Pulse 94 10/26/19 04:00 Resp 18 10/26/19 04:00 BP 134/64 10/26/19 04:00 Pulse Ox 98 10/26/19 04:00 10/25/19 10/26/19 10/26/19 22:59 06:59 14:59 Intake Total 390 / 870 Output Total 350 / 350 Balance 40 / 520 Physical Exam Narrative: EXAM NARRATIVE: obese, comfortable in bed, NARD VS noted and stable exam by RN as telemedicine visit heent- nc/at, eomi, anicteric neck supple lungs CTA b/l RT ACW PC heart reg +SALINA abd soft, nt, nd, +BS ext edema, left hip pain neuro- a,a, o x 3 Data : 10/26/19 04:28 10/26/19 04:28 Micro: Microbiology 10/23/19 21:16 Eye/Ear/Nose/Throat Culture - Preliminary Nose A&P Additional A&P Information 64 yr old man 1. ESRD- HD MWF- repeat HD in am 3.5 hrs, 3k, 2l fluid removal 2. hgb excellent 3. hip pain as per orthopedics 4. htn- cont outpt meds. improved w/ fluid removal on HD 5. normal tsh on levothyroxine 6. pth -73- no vit d analouge 7. for outpt left ekta-arthroplasty Attestations Medical Necessity Statement*: per hospitalist Time Spent in Patient Care: 16 - 35 minutes Coding Level of Care Code Acute Director Of Solutions Architecture for Bassamg Matthew
[2019-10-26 07:31] LABS: Glucose Point of Care 145 mg/dL (70-110)
[2019-10-26] MEDS: FUROsemide 40 mg Tablet 80 MG PO ×2 (08:17→17:41)
[2019-10-26] MEDS: insulin glargine 100 units/1 mL 5 UNIT SUBCUT ×2 (08:17→17:41)
[2019-10-26] MEDS: amlodipine 10 mg Tablet PO (08:17)
[2019-10-26] MEDS: heparin 5,000 unit/mL INJ 1 mL 5000 UNIT SUBCUT ×2 (08:17→20:03)
[2019-10-26] MEDS: levothyroxine 88 mcg Tablet PO (08:18)
[2019-10-26] MEDS: pantoprazole DR 40 mg Tablet 80 MG PO ×2 (08:18→17:41)
[2019-10-26] MEDS: budesonide 0.5 mg/2 mL Neb INHALATION (08:57)
[2019-10-26 11:32] LABS: Glucose Point of Care 274 mg/dL (70-110)
[2019-10-26 11:32] LABS: Glucose Point of Care 321 mg/dL (70-110)
[2019-10-26 17:02] LABS: Glucose Point of Care 218 mg/dL (70-110)
--- NOTE | 2019-10-26 17:03 | PM.PN ---
Subjective Subjective: Interval history: Patient feels weaker today compared to yesetrday, has been particpiating with PT, but increased difficulty ambulating today, intermittently noted to be tachycardic with HR 100-120. No dizziness, chest pain, palpitations. Medications: Reviewed: Yes Vitals/I&O/Wt Last Vital Signs Temp 97.9 F 10/26/19 15:53 Pulse 102 H 10/26/19 15:53 Resp 18 10/26/19 15:53 BP 129/71 10/26/19 15:53 Pulse Ox 92 10/26/19 15:35 10/26/19 10/26/19 10/26/19 06:59 14:59 22:59 Intake Total 360 / 360 Balance 360 / 360 Physical Exam Narrative: EXAM NARRATIVE: GEN: Awake, alert and oriented, no acute distress CVS: S1S2 N RS: CTA B/L Abd: Soft, nt/nd , bs+ Data : 10/26/19 04:28 10/26/19 04:28 Micro: Microbiology 10/23/19 21:16 Eye/Ear/Nose/Throat Culture - Final Nose A&P Assessment and plan (1) Inability to ambulate due to hip: Patient presented with sudden inability to stand up. He was noted to have left hip osteoarthritis and avascular necrosis of the left hip. Appreciate orthopedics evaluation. Patient will need a left hip hemiarthroplasty as an outpatient. PT OT assessment ongoing, patient has been partcipating with PT ,however his degree of ambulation is waxing and waning. Today appeared to be more deconditioned than previous days. He has been recommended SNF given severity of deficits to best achieve pre admission level of independence Status: Acute (2) Osteoarthritis of left hip: Status: Acute (3) Hypertension: Currently well controlled, continue amlodipine Status: Acute (4) ESRD (end stage renal disease): Renal consulted to continue hemodialysis while patient remains inpatient. scheduled MWF Status: Acute (5) Anemia: Status: Acute Qualifiers: Anemia type: due to chronic kidney disease Chronic kidney disease stage: on chronic dialysis Qualified Code(s): N18.6 - End stage renal disease; D63.1 - Anemia in chronic kidney disease; Z99.2 - Dependence on renal dialysis (6) Hypothyroidism: Continue home dose of levothyroxine Status: Acute (7) Diastolic congestive heart failure: currently euvolemic Status: Acute (8) Tachycardia: Sinus tachycardia, with HR up to 120s, asymtpomatic, add metoprolol 12.5mg Po BID and monitor for response Status: Acute Attestations Medical Necessity Statement*: added B blockers, montior HR, ongoing physical therapy, needed more assistance today Coding Level of Care Code Acute Sap Pi Developer for Chg Fwd Diagnoses Inability to ambulate due to hip R26.2 Osteoarthritis of left hip M16.12 Hypertension I10 ESRD (end stage renal disease) N18.6 Anemia N18.6; D63.1; Z99.2 Anemia type: due to chronic kidney disease Chronic kidney disease stage: on chronic dialysis Hypothyroidism E03.9 Diastolic congestive heart failure I50.30 Tachycardia R00.0
[2019-10-26 20:34] LABS: Glucose Point of Care 149 mg/dL (70-110)
[2019-10-27] VITALS (9 sets, daily range): BP systolic 127–175; BP diastolic 68–79; PULSE 90–100; RESP 18–20; TEMP 36.4–36.8; O2SAT 93–100
[2019-10-27] MEDS: HYDROcodone-acetaminophen 5-325 mg Tablet 1 TAB PO ×2 (00:22→15:12)
[2019-10-27 05:24] LABS: Basophils # 0.1 10^3/uL (0.0-0.1); Basophils % 0.7 %; Eosinophils # 0.3 10^3/uL (0.0-0.8); Eosinophils % 2.8 %; Hematocrit 37.4 % (42.0-52.0); Hemoglobin 12.1 g/dL (11.7-16.6); Lymphocytes # 2.1 10^3/uL (0.8-4.8); Lymphocytes % 21.9 %; Mean Corpuscular HGB Conc 32.4 g/dL (30.0-36.0); Mean Corpuscular Hemoglobin 31.7 pg (28.0-34.0); Mean Corpuscular Volume 97.9 fL (80-94); Mean Platelet Volume 9.3 fL (7.4-10.4); Neutrophils # 5.97 10^3/uL (1.8-7.7); Neutrophils % 63.2 %; Nucleated Red Blood Cells % 0 %; Platelet Count 281 10^3/cmm (130-400); Red Blood Count 3.82 10^6/uL (4.1-5.3); Red Cell Distribution Width 14.8 % (12.1-15.1); White Blood Count 9.5 10^3/uL (4.0-10.0)
[2019-10-27 05:37] LABS: Alanine Aminotransferase 35 U/L (0-41); Albumin Level 3.9 g/dL (3.5-5.2); Alkaline Phosphatase 90 IU/L (40-130); Anion Gap 16.1 (5-19); Aspartate Amino Transferase 29 U/L (0-40); Blood Urea Nitrogen 36 mg/dL (8-23); Calcium 9.3 mg/dL (8.5-10.5); Carbon Dioxide 27 mmol/L (22-29); Chloride 99 mmol/L (98-107); Globulin 3.1 g/dL (1.3-4.6); Glomerular Filtration Rate 9.3 mL/min (90-130); Glucose 152 mg/dL (65-115); Osmolality Calculated 286 mOsm/kg (285-295); Phosphorus 4.2 mg/dL (2.5-4.5); Potassium 4.1 mmol/L (3.5-5.1); Sodium 138 mmol/L (136-145); Total Bilirubin 0.4 mg/dL (0.15-1.2)
[2019-10-27 06:38] LABS: Glucose Point of Care 141 mg/dL (70-110)
--- NOTE | 2019-10-27 07:53 | P.PN_ITS ---
Subjective Subjective: Interval history: c/o hip pain. no other complaints. no sob or cp Medications: Reviewed: Yes Medication Review Details: Current Medications Hydrocodone Bitart/Acetaminophen ([place] 5-325 Mg) 1 tab PO Q4H PRN PRN Reason: MODERATE TO SEVERE PAIN Last Admin: 10/27/19 00:22 Dose: 1 tab Documented by: Albuterol/Ipratropium (Duoneb) 3 ml INHALATION Q6H.RESPIRATORY [facility] Last Admin: 10/27/19 02:25 Dose: Not Given Documented by: Amlodipine Besylate (Norvasc) 10 mg PO DAILY [facility] Last Admin: 10/26/19 08:17 Dose: 10 mg Documented by: Bisacodyl (Dulcolax) 10 mg PO DAILY PRN PRN Reason: CONSTIPATION Budesonide (Pulmicort) 0.5 mg INHALATION BID.RESPIRATORY [facility] Last Admin: 10/26/19 21:07 Dose: Not Given Documented by: Furosemide (Lasix) 80 mg PO BID [facility] Last Admin: 10/26/19 17:41 Dose: 80 mg Documented by: Heparin Sodium (Beef Lung) (Heparin) 5,000 unit SUBCUT Q12H [facility] Last Admin: 10/26/19 20:03 Dose: 5,000 unit Documented by: Insulin Glargine (Lantus) 5 unit SUBCUT BID [facility] Last Admin: 10/26/19 17:41 Dose: 5 unit Documented by: Levothyroxine Sodium (Synthroid) 88 mcg PO DAILY [facility] Last Admin: 10/26/19 08:18 Dose: 88 mcg Documented by: Metoprolol Tartrate (Lopressor) 12.5 mg PO BID [facility] Non-Formulary Medication (Vit B,P-Sh-Ltco-Selen-Vit D3-E [Renaplex-D]) 1 tab PO QPM [facility] Last Admin: 10/26/19 15:15 Dose: Not Given Documented by: Non-Formulary Medication ([place]-3 Fatty Acids-Fish Oil [Fish Oil]) 1 cap PO DAILY [facility] Last Admin: 10/26/19 08:18 Dose: Not Given Documented by: Ondansetron HCl (Zofran) 4 mg IVP Q6H PRN PRN Reason: NAUSEA AND VOMITING Pantoprazole Sodium (Protonix) 80 mg PO BID [facility] Last Admin: 10/26/19 17:41 Dose: 80 mg Documented by: Vitals/I&O/Wt Last Vital Signs Temp 97.5 F L 10/27/19 07:33 Pulse 90 10/27/19 07:33 Resp 18 10/27/19 07:33 BP 141/72 10/27/19 07:33 Pulse Ox 98 10/27/19 07:33 10/26/19 10/27/19 10/27/19 22:59 06:59 14:59 Intake Total 240 / 600 Output Total 100 / 100 Balance 240 / 600 -100 / 500 Physical Exam Narrative: EXAM NARRATIVE: obese, comfortable in bed, NARD VS noted and stable exam by RN as telemedicine visit heent- nc/at, eomi, anicteric neck supple lungs CTA b/l RT ACW PC heart reg +SALINA abd soft, nt, nd, +BS ext edema, left hip pain neuro- a,a, o x 3 Data : 10/27/19 04:40 10/27/19 04:40 Micro: Microbiology 10/23/19 21:16 Eye/Ear/Nose/Throat Culture - Final Nose A&P Additional A&P Information 64 yr old man 1. ESRD- HD MWF- repeat HD now 3.5 hrs, 3k, 2l fluid removal 2. hgb excellent 3. hip pain as per orthopedics 4. htn- cont outpt meds. improved w/ fluid removal on HD 5. normal tsh on levothyroxine 6. pth -73- no vit d analouge 7. for outpt left ekta-arthroplasty 8. bp excellent- lower norvasc dose. tachycardi improved on metoprolol Attestations Medical Necessity Statement*: per hospitalist Time Spent in Patient Care: 16 - 35 minutes Coding Level of Care Code Acute Regional Extension Service Specialist for Brynn Castro
--- NOTE | 2019-10-27 08:30 | PC.SOCIAL ---
IMM Page 2 of IMM explained to and signed by patient. He verbalizes understanding. Initialed, dated, and timed and placed in chart. Copy provided to patient.
[2019-10-27] MEDS: levothyroxine 88 mcg Tablet PO (13:06)
[2019-10-27] MEDS: insulin glargine 100 units/1 mL 5 UNIT SUBCUT ×2 (13:07→17:28)
[2019-10-27] MEDS: metoprolol tartrate 25 mg Tablet 12.5 MG PO ×2 (13:07→17:28)
[2019-10-27] MEDS: pantoprazole DR 40 mg Tablet 80 MG PO ×2 (13:07→17:28)
[2019-10-27 13:25] LABS: Glucose Point of Care 159 mg/dL (70-110)
--- NOTE | 2019-10-27 13:32 | PM.DCS ---
Discharge Providers Date of Admission: 10/24/19 15:56 Date of Discharge: October 27, 2019 Attending Provider at Admission: Lian Zarate MD Attending Provider at Discharge: Lian Zarate MD Primary Care Provider: Carla Ceballos MD Diagnoses at Discharge Discharge Diagnosis (1) Inability to ambulate due to hip: Status: Acute (2) Osteoarthritis of left hip: Status: Acute (3) Hypertension: Status: Acute (4) ESRD (end stage renal disease): Status: Acute (5) Anemia: Status: Acute Qualifiers: Anemia type: due to chronic kidney disease Chronic kidney disease stage: on chronic dialysis Qualified Code(s): N18.6 - End stage renal disease; D63.1 - Anemia in chronic kidney disease; Z99.2 - Dependence on renal dialysis (6) Hypothyroidism: Status: Acute (7) Diastolic congestive heart failure: Status: Acute (8) Tachycardia: Status: Acute Reason for Visit Reason for Visit: WEAKNESS AND LEFT SIDED HIP PAIN Hospital Course Discharge Summary: 64 year old male with a past medical history of end-stage renal disease on dialysis Wednesday, Wednesday, Wednesday, hypothyroidism, hypertension, type 2 diabetes, who presented today after undergoing his dialysis session, returning home and then being unable to get up. Imaging in the ER was obtained which showed avascular necrosis of the hip. He was evaluted by Dr. Mar from orthopedics, recommend physical therapy. PT evaluation was done and given severe impairment in mobility, it was thought he would benefit from SNF and more intensive rehab. No acute surgical intervention was warranted per orthopedics, patient would need to follow-up as an outpatient to consider total left hip arthroplasty as an outpatient. During the admission course his level of mobility has continued to wax and wane. Yesterday he was feeling too weak to get out of bed and ambulated only a few steps, however today he was able to walk approximately 5 to 6 feet with a walker. His pain is currently adequately controlled. He received dialysis per schedule on Wednesday and Wednesday. During dialysis today his blood pressure transiently dropped to systolic 80 after 1.6L removeal. Improved after being given 500cc fluids. He denies any complains of chest pain dyspnea or palpitations today. He is being discharged to the nursing facility in a stable condition with recommendation to continue dialysis Wednesday. Changes made to his medications include: Discontinuing amlodipine 10 mg daily, metoprolol 12.5 mg p.o. twice daily has been added for tachycardia, metolazone has been held due to hypotension today, please assess at the nursing facility if this needs to be reinitiated, Protonix dose has been reduced from 80 twice daily to 40 twice daily. Physical Exam Narrative: EXAM NARRATIVE: GEN: Awake, alert and oriented, no acute distress CVS: S1S2 N RS: CTA B/L Abd: Soft, nt/nd , bs+ DIGITAL SOLUTIONS ARCHITECT: no focal neuro deficits Discharge Data Data Completed and Pending: Completed Studies During Hospitalization Category Date Time Status XR chest 1V franki ble [id number] Stat Exams 10/23/19 12:52 Completed XR femur LT min 2 V* [id number] Stat Exams 10/23/19 16:36 Completed XR hip LT 2-3V wo /w pel* [id number] Stat Exams 10/23/19 15:15 Completed XR knee LT 3V* [id number] Stat Exams 10/23/19 16:36 [place] [id number] Stat Ultrasound 10/23/19 16:36 Completed Pending at discharge Category Date Time Status Blood Culture Sta t Lab 10/23/19 13:25 Results Labs from last 24 hours 10/27/19 10/27/19 10/27/19 13:17 06:34 04:40 WBC RBC Hgb Hct MCV MCH MCHC RDW Plt Count MPV Neut % (Auto) Lymph % (Auto) [place] % (Auto) Eos % (Auto) Baso % (Auto) Neut # (Auto) Lymph # (Auto) [place] # (Auto) Eos # (Auto) Baso # (Auto) Nucleated RBC % (a uto) Nucleated RBCs # Sodium 138 Potassium 4.1 Chloride 99 Carbon Dioxide 27 Anion Gap 16.1 BUN 36 H Creatinine 6.1 H* GFR Calculation 9.3 L Glucose 152 H POC Glucose 159 141 Calculated Osmolal ity 286 Calcium 9.3 Phosphorus 4.2 Magnesium 2.0 Total Bilirubin 0.4 AST 29 ALT 35 Alkaline Phosphata se 90 Total Protein 7.0 Albumin 3.9 Globulin 3.1 10/27/19 10/26/19 10/26/19 04:40 20:26 16:54 WBC 9.5 RBC 3.82 L Hgb 12.1 Hct 37.4 L MCV 97.9 H MCH 31.7 MCHC 32.4 RDW 14.8 Plt Count 281 MPV 9.3 Neut % (Auto) 63.2 Lymph % (Auto) 21.9 [place] % (Auto) 11.0 Eos % (Auto) 2.8 Baso % (Auto) 0.7 Neut # (Auto) 5.97 Lymph # (Auto) 2.1 [place] # (Auto) 1.0 H Eos # (Auto) 0.3 Baso # (Auto) 0.1 Nucleated RBC % (a uto) 0 Nucleated RBCs # 0.0 Sodium Potassium Chloride Carbon Dioxide Anion Gap BUN Creatinine GFR Calculation Glucose POC Glucose 149 218 Calculated Osmolal ity Calcium Phosphorus Magnesium Total Bilirubin AST ALT Alkaline Phosphata se Total Protein Albumin Globulin Vitals: Last Vital Signs Temp 97.7 F 10/27/19 13:20 Pulse 100 10/27/19 13:20 Resp 18 10/27/19 13:20 BP 127/76 10/27/19 13:20 Pulse Ox 100 10/27/19 13:20 Discharge Plan Discharge Patient Disposition: [facility] SNF Condition: Stable Prescriptions: New hydrocodone-acetaminophen 5-325 mg Tablet 1 tab PO Q4H PRN (Reason: Moderate To Severe Pain) 30 Days Qty: 30 RF: 0 furosemide 40 mg Tablet 40 mg PO BID 30 Days Qty: 60 RF: 0 metoprolol tartrate 25 mg Tablet 12.5 mg PO BID 30 Days Qty: 30 RF: 0 Continued (DME) oxygen-air delivery systems Device See Rx Instructions .ROUTE .MEDSUPPLY Qty: 1 RF: 0 levothyroxine 88 mcg tablet 88 mcg PO DAILY RF: 0 budesonide-formoterol [Symbicort] 160-4.5 mcg/actuation HFA aerosol inhaler 2 puff INHALATION BID RF: 0 omega-3 fatty acids-fish oil [Fish Oil] 360-1,200 mg capsule 1 cap PO DAILY RF: 0 lanthanum 750 mg tablet,chewable 1,500 mg PO TID RF: 0 RenaPlex-D 800 mcg-12.5 mg -2,000 unit tablet 1 tab PO QPM RF: 0 Lantus U-100 Insulin 100 unit/mL solution 5 unit SUBCUT BID 30 Days Qty: 6 RF: 0 Changed pantoprazole 40 mg Tablet,Delayed Release (Dr/Ec) 40 mg PO BID 30 Days Qty: 30 RF: 0 Discontinued amlodipine 10 mg tablet 10 mg PO DAILY RF: 0 furosemide 40 mg tablet 80 mg PO BID RF: 0 Hold Instructions: Resume on 03/24/19. HOLD UNTILE SEEN BY metolazone 5 mg tablet 5 mg PO DAILY RF: 0 Discharge Orders: Discharge Order (Routine); Ordered 10/27/19 Ordered By: Lian Zarate Other Ambulatory Orders: DME: Walker (Order) Location: None Selected Ordered By: Vin Mar Referrals: [facility] [Outside] Carla Ceballos MD [Primary Care Provider] - ([facility] will make all follow up appointments) Discharge Diet: Usual diet Discharge Activity: As per PT/OT instructions Discharge Attestations Time Spent in Discharge Care*: greater than 30 min Quality Metrics Clinical Quality Measures During this hospital stay, did patient experience: None Coding Level of Care Code Acute Low Emission Automobile Designer for Chg Fwd Diagnoses Inability to ambulate due to hip R26.2 Osteoarthritis of left hip M16.12 Hypertension I10 ESRD (end stage renal disease) N18.6 Anemia N18.6; D63.1; Z99.2 Anemia type: due to chronic kidney disease Chronic kidney disease stage: on chronic dialysis Hypothyroidism E03.9 Diastolic congestive heart failure I50.30 Tachycardia R00.0
[2019-10-27] MEDS: ipratropium-albuterol 3 mL Neb INHALATION (14:03)
[2019-10-27 17:16] LABS: Glucose Point of Care 211 mg/dL (70-110)
== END 2019-10-27 18:35 | disposition skilled nursing facility (03) | DRG 553 ==
LOC: ER 16:53 → MEDSURG 17:47
PROVIDERS: Internal Medicine Nephrology; Student in an Organized Health Care Education/Training Program; Admitting Provider Student in an Organized Health Care Education/Training Program; Emergency Provider Emergency Medicine; PCP Internal Medicine; Visit Provider Student in an Organized Health Care Education/Training Program
DX: M87.88 Other osteonecrosis, other site (principal); N18.6 End stage renal disease; I50.30 Unspecified diastolic (congestive) heart failure; I13.2 Hypertensive heart and chronic kidney disease with heart failure and with stage 5 chronic kidney disease, or end stage renal disease; D63.1 Anemia in chronic kidney disease; Z99.2 Dependence on renal dialysis; E03.9 Hypothyroidism, unspecified; E11.22 Type 2 diabetes mellitus with diabetic chronic kidney disease; E11.649 Type 2 diabetes mellitus with hypoglycemia without coma; Z79.4 Long term (current) use of insulin; J44.9 Chronic obstructive pulmonary disease, unspecified; Z87.891 Personal history of nicotine dependence
CPT/HCPCS: 12345; 36415; 36416; 71045; 73502; 73552; 73562; 80053; 81001; 82310; 82962; 83036; 83540; 83550; 83735; 83880; 83970; 84100; 84145; 84443; 84484; 85025; 85378; 85610; 86706; 86803; 87040; 87070; 87340; 87641; 90935; 93005; 93971; 94640; 96372; 97110; 97116; 97161; 97530; 99284; G0378; J1644; J1815; J7626; Q3014

== ENCOUNTER → 2020-03-09 09:04 | Outpatient (BNVA) | payer MEDICARE, MEDICAID, SELFPAY | PROVIDERS: PCP Internal Medicine; Visit Provider Surgery | DX: Z11.59 Encounter for screening for other viral diseases (principal); N18.6 End stage renal disease | CPT/HCPCS: 87635 ==

== ENCOUNTER 2020-03-14 09:23 | Day surgery (SDC) | payer MEDICARE, MEDICAID, SELFPAY ==
[2020-03-13 14:26] VITALS: BMI 25.8
[2020-03-14] VITALS (8 sets, daily range): BP systolic 125–169; BP diastolic 62–84; PULSE 67–84; RESP 13–22; TEMP 36.2–36.4; O2SAT 94–99
[2020-03-14] MEDS: sodium chloride 0.9% 1,000 ML 30 ML IV (10:13)
[2020-03-14 10:15] LABS: Glucose Point of Care 127 mg/dL (70-110)
--- NOTE | 2020-03-14 10:24 | ANES.PREANE2 ---
Pre-Anesthetic Assessment Pre-Anesthetic Assessment: Height/Weight: Height 1.73 m Weight 77.111 kg Temp Pulse Resp BP Pulse Ox 97.5 F L 84 16 125/67 95 03/14/20 10:02 03/14/20 10:02 03/14/20 10:02 03/14/20 10:02 03/14/20 10:02 Preop Diagnosis: CKD Proposed Procedure: Operation Date: 03/14/20 11:05 Proposed Procedures p Laparoscopic [place] [address] N18.6(Not Applicable) - Giovanni Steinberg MD Familial anesthetic complications: None Was Beta Veronica taken within 24 hours: Yes Last intake: Intake Last Liquid Date 03/13/20 Last Liquid Time 17:30 Last Solid Date 03/13/20 Last Solid Time 17: Social: Social History: No alcohol and No tobacco Exam: Pre-Anes Outpt Exam: alert, oriented x 3, clear to auscultation bilaterally and regular rate & rhythm Airway: Cervical ROM: WNL MP: 4 Additional comments: broken front tooth/misisng, poor dentition Pulmonary: Pulmonary: COPD (4 L NC continously ) CV/HEM: CV/HEM: Anemia, Arrythmia, CHF and HTN : : Chronic renal failure GI: GI: GERD Metabolic: Metabolic: DM and Thyroid Anesthetic Plan: ASA status: 4 Anesthesia: General Risk of > 500 ml blood loss (7ml/kg in children): No Meds/Allergies Current Medications: Current Medications Generic Name Dose Route Start Last Admin Trade Name Freq PRN Reason Stop Dose Admin Sodium Chloride 1,000 mls @ 30 ml s/hr 03/14/20 09:45 03/14/20 10:13 Sodium Chloride 0.9% IV 03/15/20 09:44 30 mls/hr .Q24H LENNIE Administration PFSH Anesthesia PFSH: Medical History Blood transfusion abn reaction or complication, no procedure mishap Cataract disorder type 14 COPD (chronic obstructive pulmonary disease) Diastolic congestive heart failure ESRD (end stage renal disease) Hypertension Hypothyroidism Insulin dependent type 2 diabetes mellitus Iron deficiency anemia Nonalcoholic liver disease, chronic Secondary hyperparathyroidism Surgical History H/O esophagogastroduodenoscopy 2020 History of open reduction and internal fixation (ORIF) procedure S/P dialysis catheter insertion (08/30/19) Status post creation of arteriovenous fistula Family History Other CAD (coronary artery disease) Hyperlipidemia Hypertension Denies family history of Anesthesia complication Bleeding disorder Cancer Social History Smoking and tobacco status: former smoker Alcohol intake: never Household members: family and other Details: Lives with his mother Current occupational status: disabled History of recent travel: No Data Anesthesia Other Labs: Laboratory Results - last 48 hr 03/14/20 10:06 POC Glucose 127 H Cardiac Studies: No Data to Display
--- NOTE | 2020-03-14 10:44 | W.PM.OPSUD ---
Surgery/Procedure H&P Update DATE OF PROCEDURE: March 14, 2020 DATE H&P PERFORMED: 02/27/20 H&P UPDATE INFORMATION: I have reviewed H&P completed within last 30 days, I have examined patient prior to procedure and No changes to prior documentation PREOP DIAGNOSIS: CKD PLANNED PROCEDURE: Operation Date: 03/14/20 11:05 Proposed Procedures p Laparoscopic Peritoneal [place]en [address]79 N18.6(Not Applicable) - Giovanni Steinberg MD
[2020-03-14] MEDS: heparin 5,000 unit/mL INJ 1 mL 5000 UNIT INJECTION (12:08)
[2020-03-14] MEDS: heparin, porcine 1,000 unit/mL INJ 10 mL 5000 UNIT INJECTION (12:14)
--- NOTE | 2020-03-14 12:27 | PM.OP ---
Operative Report Date of procedure: March 14, 2020 Pre-op Diagnosis: Chronic kidney disease on dialysis Post-op diagnosis: same Post-op Diagnosis: Chronic kidney disease Procedure Done: Laparoscopic placement of peritoneal dialysis catheter Pathology: none sent Surgeon: Giovanni Steinberg Anesthesia: General Estimated blood loss (mL): 5 Condition: stable Disposition: PACU Procedure: The patient was taken to the operating room and intubated under general anesthesia after IV antibiotic had been administered. The abdomen was prepped and draped in a sterile manner. Using 15 blade a 1 cm incision was made in the left upper quadrant and a Veress needle introduced to create 15 mm of pneumoperitoneum. Using Optiview technique, a 5 mm port was placed and a 5 mm 30? scope was introduced. Another 5 mm port was placed in the left lower quadrant at the level of the umbilicus in the midclavicular line. The pigtail peritoneal dialysis catheter was placed on the abdominal wall and the position marked, an introducer needle was passed through the abdominal wall to the right of the midline inferior to the umbilicus, guidewire passed through the introducer needle, the needle was removed and a dilator sheath was placed over the guidewire and inner dilator and guidewire was removed. The pigtail catheter was introduced as the peel-away sheath was removed with the tip of the catheter in the pelvis and the cuff within the rectus muscle. The catheter was tunneled proximally to exit in the right upper quadrant. A subcutaneous pocket was created. The catheter was attached to a saline bag and there was good inflow and outflow noted. 20 mL of 1:10,000 heparin was injected into the tube. The ports were removed under direct visualization and there was no bleeding from the port sites. The skin at the 5 mm port sites were closed using 4-0 Monocryl and Dermabond. Sterile dressings were applied at the catheter site. The patient was intubated and transferred to recovery room in stable condition.
--- NOTE | 2020-03-14 14:48 | ANE.PACU2 ---
Inpatient post-anesthesia follow up: Airway intact: Yes Vital signs: Temperature 97.4 F Pulse Rate 81 Respiratory Rate 16 Blood Pressure 155/75 Pulse Oximetry 94 Oxygen Delivery Me thod Nasal Cannula Oxygen Flow Rate 4 Fraction of Inspir ed Oxygen Hydration adequate: Yes Nausea and vomiting: No Pain level: 4 Mental status: Baseline
== END 2020-03-14 13:32 | disposition home or self-care (01) ==
PROVIDERS: PCP Internal Medicine; Visit Provider Surgery
PROC: 0WHG43Z Insertion of Infusion Device into Peritoneal Cavity, Percutaneous Endoscopic Approach (ICD-10-PCS; CPT 49324; principal; 2020-03-14 10:45)
DX: I13.2 Hypertensive heart and chronic kidney disease with heart failure and with stage 5 chronic kidney disease, or end stage renal disease (principal); E11.22 Type 2 diabetes mellitus with diabetic chronic kidney disease; N18.6 End stage renal disease; I50.30 Unspecified diastolic (congestive) heart failure; Z99.2 Dependence on renal dialysis; J44.9 Chronic obstructive pulmonary disease, unspecified; Z99.81 Dependence on supplemental oxygen; K21.9 Gastro-esophageal reflux disease without esophagitis; E03.9 Hypothyroidism, unspecified; Z79.4 Long term (current) use of insulin; Z87.891 Personal history of nicotine dependence
CPT/HCPCS: 49324; 12345; 36416; 82962; C1750; J0690; J1644; J2704; J2710; J3010; J3490; J7030

== ENCOUNTER 2020-04-08 07:36 | Inpatient (IN) | payer MEDICARE, MEDICAID, SELFPAY ==
[2020-04-08] VITALS (29 sets, daily range): BP systolic 82–156; BP diastolic 44–103; PULSE 88–128; RESP 17–32; TEMP 34.1–36.6; O2SAT 68–100; BMI 28.1
--- NOTE | 2020-04-08 07:37 | ED_ITS ---
HPI - SOB/Dyspnea General: Chief Complaint: Shortness of Breath/Dyspnea Stated Complaint: resp distress Time Seen by Provider: 04/08/20 07:37 History of Present Illness: HPI Narrative: 64-year-old male comes in complaining of shortness of breath. He is chronically on oxygen he reports she is usually on 4 L/min however here on 2 L/min he maintains a sat of 100%. He has a history of diabetes mellitus end-stage renal disease he has a tunneled hemodialysis catheter in the right subclavian area also has a PD catheter. He states he gets dialysis Wednesday(?). He seems quite confused this morning. When asked if he gets hemodialysis or peritoneal dialysis regularly he is repeatedly answers home dialysis. However wound recheck to Dr. Rapp's office and dialysis center and they states he is scheduled to get dialysis today by hemodialysis. We are currently trying to confirm what type of dialysis and how frequently he is actually scheduled for. He does state he is short of breath and is increasing orthopnea. He denies any productive cough fevers or myalgias. Reviewing his previous history notes it looks like the peritoneal dialysis catheter was placed approximately 3-1/2 weeks ago. He was in the hospital in September and early October of last year. It appears they are transitioning him from hemodialysis to peritoneal dialysis. Also note that in October when he was discharged [facility] as reported by [facility] he was picked up from at home. MD elicited complaint: shortness of breath and cough Pertinent past history: COPD and diabetes Onset (ago): unknown Timing: intermittent Severity: moderate Exacerbating factors: lying flat and exertion Relieving factors: oxygen, rest and upright position Associated symptoms: Reports chest congestion, cough and orthopnea; Deny abdominal pain, chest pain, diaphoresis, dizziness, extremity pain, fever(s), hemoptysis, lightheadedness, myalgias, nausea, palpitations, paresthe flor, polydipsia, polyuria, rash, sense of impending doom or syncope Treatment prior to arrival: oxygen Review of Systems Const: Denies: fever(s) or diaphoresis ENMT: Denies: throat pain, ear or mastoid pain, nasal discharge or nasal congestion Card: Reports: orthopnea; Denies: chest pain, palpitations, lightheadedness or syncope Resp: Reports: chest congestion; Denies: hemoptysis GI: Denies: abdominal pain or nausea : Denies: flank pain, dysuria, urinary frequency or urinary urgency Musc: Denies: extremity pain Skin/Breast: Denies: rash or pruritus Neuro: Denies: dizziness Endo: Denies: polydipsia PFSH ED PFSH: Medical History Blood transfusion abn reaction or complication, no procedure mishap Cataract disorder type 14 COPD (chronic obstructive pulmonary disease) Diastolic congestive heart failure ESRD (end stage renal disease) Hypertension Hypothyroidism Insulin dependent type 2 diabetes mellitus Iron deficiency anemia Nonalcoholic liver disease, chronic Secondary hyperparathyroidism Surgical History H/O esophagogastroduodenoscopy 2020 History of open reduction and internal fixation (ORIF) procedure Peritoneal dialysis catheter in place (03/14/20) S/P dialysis catheter insertion (08/30/19) Status post creation of arteriovenous fistula Family History Other CAD (coronary artery disease) Hyperlipidemia Hypertension Denies family history of Anesthesia complication Bleeding disorder Cancer Social History Smoking and tobacco status: former smoker Alcohol intake: never Household members: family and other Details: Lives with his mother Current occupational status: disabled History of recent travel: No Physical Exam Const: COMMON NORMALS: no acute distress GENERAL APPEARANCE: cooperative and comfortable ORIENTATION/CONSCIOUSNESS: Yes awake HENMT: COMMON NORMALS: normocephalic, atraumatic, hearing grossly normal bilaterally, external ears normal, EAC's normal, TM's normal bilaterally, Normal nasal mucous membranes and turbinates present, moist oral mucous membranes and oropharynx normal HEAD & SCALP: normocephalic and atraumatic NOSE: Normal nasal mucous membranes and turbinates present EXTERNAL EAR: Yes external ears normal EXTERNAL AUDITORY CANAL: EAC's normal TYMPANIC MEMBRANE: TM's normal bilaterally Eye: COMMON NORMALS: Equal, round and reactive pupils present, EOMs intact bilaterally, conjunctivae normal and no scleral icterus CONJUNCTIVA: Yes conjunctivae normal PUPIL: Yes Equal, round and reactive pupils present Neck/C-Spine: COMMON NORMALS: full ROM, no lymphadenopathy, supple and no JVD Lymph: LYMPHATIC: no lymphadenopathy noted and no lymphedema noted Resp: COMMON NORMALS: normal respiratory effort, No retractions, No use of accessory muscles and clear to auscultation bilaterally AUSCULTATION: clear to auscultation bilaterally Cardio: COMMON NORMALS: no JVD, regular rate, regular rhythm and No murmurs present (Cardio) RATE: regular rate RHYTHM: regular rhythm GI: COMMON NORMALS: Soft to palpation and No hepatosplenomegaly present AUSCULTATION: Yes normoactive bowel sounds PALPATION: Yes Soft to palpation, No Tenderness to palpation present (GI), No Guarding due to palpation present (GI) and Yes No hepatosplenomegaly present Extremity: GENERAL: Yes edema Skin: COMMON NORMALS: no rashes or lesions noted GENERAL SKIN EXAM: no rashes or lesions noted Course Vital Signs: Vital signs: Vital Signs Temperature 97.2 F L 04/08/20 10:30 Pulse Rate 104 H 04/08/20 10:30 Respiratory Rate 22 H 04/08/20 10:30 Blood Pressure 116/70 04/08/20 10:30 Pulse Oximetry 98 04/08/20 10:30 MDM - SOB/Dyspnea MDM Narrative: Medical decision making narrative: Talk to the patient's mother whom he lives with she states he has had diarrhea over the weekend. We checked at the dialysis clinic the notes from their reflect that he did not get dialysis yesterday even though that was alluded to by him. He was being trained in the clinic it appears according to the nurses notes for peritoneal dialysis however according to their notes he struggled greatly with this. Concerned about peritoneal infection however his abdomen is soft and benign at this time will get fluid analysis from peritoneal cath as well as a culture. Restart him on Vanco and Zosyn consulted nephrology for his severe high anion gap metabolic acidosis most likely caused by his end-stage renal disease and fluid losses from diarrhea. Dialysis being started in the emergency room due to severe hyperkalemia. He was given calcium gluconate and sodium bicarb initially at the time this dictation he has been admitted and is getting hemodialysis run in the emergency room due to the fact that there is no available beds we can do hemodialysis on on the floor. Lab Data: Labs: Lab Results 04/08/20 04/08/2004/08/21 Range/Units 07:41 07:41 07:41 WBC 15.1 H (4.0-10.0) 10^3/ uL RBC 3.34 L (4.1-5.3) 10^6/u L Hgb 11.7 (11.7-16.6) g/dL Hct 38.4 L (42.0-52.0) % MCV 115.0 H (80-94) fL MCH 35.0 H (28.0-34.0) pg MCHC 30.5 (30.0-36.0) g/dL RDW 16.6 H (12.1-15.1) % Plt Count 329 (130-400) 10^3/c mm MPV 9.3 (7.4-10.4) fL Neut % (Auto) 87.2 % Lymph % (Auto) 5.8 % [place] % (Auto) 5.4 % Eos % (Auto) 0.0 % Baso % (Auto) 0.1 % Neut # (Auto) 13.16 H (1.8-7.7) 10^3/u L Lymph # (Auto) 0.9 (0.8-4.8) 10^3/u L [place] # (Auto) 0.8 (0.2-0.9) 10^3/u L Eos # (Auto) 0.0 (0.0-0.8) 10^3/u L Baso # (Auto) 0.0 (0.0-0.1) 10^3/u L Nucleated RBC % (a uto) 0.2 % Nucleated RBCs # 0.0 /100WBC Specimen Type Sample Site ABG pH (7.35-7.45) ABG pCO2 (35-45) mmHg ABG pO2 (80.0-100.0) mmH g ABG HCO3 (22-26) mmol/L ABG O2 Saturation ABG Base Excess (-2.0-2.0) mmol/ L Ted Test A-a O2 Gradient (5-10) mmHg Hematocrit (42-52) % Hgb O2 Saturation (95-100) % Carboxyhemoglobin (0.4-20.1) %THgb Methemoglobin (0.4-1.5) % Total Hemoglobin (14-18) g/dL Ionized Calcium (1.1-1.4) mmol/L O2 Delivery Device O2 Liters/Min % FiO2 % Manager Financial Planning ID Sodium 140 (136-145) mmol/L Potassium 7.1 H* (3.5-5.1) mmol/L Chloride 104 (98-107) mmol/L Carbon Dioxide 5 L* (22-29) mmol/L Anion Gap 38.1 H (5-19) BUN 77 H (8-23) mg/dL Creatinine 4.6 H (0.7-1.2) mg/dL GFR Calculation 12.9 L (90-130) mL/min Glucose 130 H (65-115) mg/dL Calculated Osmolal ity 315 H (285-295) mOsm/k g Lactic Acid (0.5-2.2) mmol/L Calcium 9.4 (8.5-10.5) mg/dL Total Bilirubin 0.2 (0.15-1.2) mg/dL AST 46 H (0-40) U/L ALT 31 (0-41) U/L Alkaline Phosphata se 106 (40-130) IU/L Ammonia (16-60) umol/L Creatine Kinase 595 H* (39-308) U/L Total Protein 6.2 L (6.6-8.7) g/dL Albumin 3.7 (3.5-5.2) g/dL Globulin 2.5 (1.3-4.6) g/dL TSH (0.27-4.20) uIU/ mL Urine Color (Yellow) Urine Appearance (CLEAR) Urine pH (5-7) Ur Specific Gravit y (1.005-1.030) Urine Protein (Negative) Urine Glucose (UA) (Normal) Urine Ketones (Negative) Urine Blood (Negative) Urine Nitrate (Negative) Urine Bilirubin (Negative) Urine Urobilinogen (Negative) mg/dL Ur Leukocyte Darshana ase (Negative) Urine RBC (0-2) /hpf Urine WBC (0-5) /hpf Ur Squamous Epith Cells (0-5) /hpf Amorphous Sediment /hpf Urine Bacteria (NONE) /hpf Salicylates (3-10) mg/dL Acetaminophen (10-30) ug/mL Ethyl Alcohol < 10 (0-10) mg/dL 04/08/20 04/08/20 04/08/20 Range/Units 07:41 07:51 08:10 WBC (4.0-10.0) 10^3/ uL RBC (4.1-5.3) 10^6/u L Hgb (11.7-16.6) g/dL Hct (42.0-52.0) % MCV (80-94) fL MCH (28.0-34.0) pg MCHC (30.0-36.0) g/dL RDW (12.1-15.1) % Plt Count (130-400) 10^3/c mm MPV (7.4-10.4) fL Neut % (Auto) % Lymph % (Auto) % [place] % (Auto) % Eos % (Auto) % Baso % (Auto) % Neut # (Auto) (1.8-7.7) 10^3/u L Lymph # (Auto) (0.8-4.8) 10^3/u L [place] # (Auto) (0.2-0.9) 10^3/u L Eos # (Auto) (0.0-0.8) 10^3/u L Baso # (Auto) (0.0-0.1) 10^3/u L Nucleated RBC % (a uto) % Nucleated RBCs # /100WBC Specimen Type Arterial Sample Site Brachial, left ABG pH 6.94 L* (7.35-7.45) ABG pCO2 17.4 L* (35-45) mmHg ABG pO2 144.0 H (80.0-100.0) mmH g ABG HCO3 3.7 L (22-26) mmol/L ABG O2 Saturation 98.5 ABG Base Excess -27.0 L (-2.0-2.0) mmol/ L Ted Test N/a A-a O2 Gradient 4.1 L (5-10) mmHg Hematocrit 35.4 L (42-52) % Hgb O2 Saturation 96.7 (95-100) % Carboxyhemoglobin 0.8 (0.4-20.1) %THgb Methemoglobin 1.0 (0.4-1.5) % Total Hemoglobin 11.5 L (14-18) g/dL Ionized Calcium 1.4 (1.1-1.4) mmol/L O2 Delivery Device Nc O2 Liters/Min 2.0 % FiO2 28.0 % Manager Financial Planning ID Gd Sodium 140.0 (136-145) mmol/L Potassium 6.5 H (3.5-5.1) mmol/L Chloride (98-107) mmol/L Carbon Dioxide (22-29) mmol/L Anion Gap (5-19) BUN (8-23) mg/dL Creatinine (0.7-1.2) mg/dL GFR Calculation (90-130) mL/min Glucose 159.0 H (65-115) mg/dL Calculated Osmolal ity (285-295) mOsm/k g Lactic Acid (0.5-2.2) mmol/L Calcium (8.5-10.5) mg/dL Total Bilirubin (0.15-1.2) mg/dL AST (0-40) U/L ALT (0-41) U/L Alkaline Phosphata se (40-130) IU/L Ammonia (16-60) umol/L Creatine Kinase (39-308) U/L Total Protein (6.6-8.7) g/dL Albumin (3.5-5.2) g/dL Globulin (1.3-4.6) g/dL TSH 3.37 (0.27-4.20) uIU/ mL Urine Color Yellow (Yellow) Urine Appearance Cloudy (CLEAR) Urine pH 5 (5-7) Ur Specific Gravit y 1.020 (1.005-1.030) Urine Protein 1+ H (Negative) Urine Glucose (UA) Norm (Normal) Urine Ketones Negative (Negative) Urine Blood 3+ H (Negative) Urine Nitrate Negative (Negative) Urine Bilirubin Neg (Negative) Urine Urobilinogen Norm (Negative) mg/dL Ur Leukocyte Darshana ase Negative (Negative) Urine RBC 0-4 H (0-2) /hpf Urine WBC None (0-5) /hpf Ur Squamous Epith Cells None (0-5) /hpf Amorphous Sediment 2+ /hpf Urine Bacteria 1+ H (NONE) /hpf Salicylates < 0.3 L (3-10) mg/dL Acetaminophen 8.4 L (10-30) ug/mL Ethyl Alcohol (0-10) mg/dL 04/08/20 04/08/20 Range/Units 08:19 09:57 WBC (4.0-10.0) 10^3/ uL RBC (4.1-5.3) 10^6/u L Hgb (11.7-16.6) g/dL Hct (42.0-52.0) % MCV (80-94) fL MCH (28.0-34.0) pg MCHC (30.0-36.0) g/dL RDW (12.1-15.1) % Plt Count (130-400) 10^3/c mm MPV (7.4-10.4) fL Neut % (Auto) % Lymph % (Auto) % [place] % (Auto) % Eos % (Auto) % Baso % (Auto) % Neut # (Auto) (1.8-7.7) 10^3/u L Lymph # (Auto) (0.8-4.8) 10^3/u L [place] # (Auto) (0.2-0.9) 10^3/u L Eos # (Auto) (0.0-0.8) 10^3/u L Baso # (Auto) (0.0-0.1) 10^3/u L Nucleated RBC % (a uto) % Nucleated RBCs # /100WBC Specimen Type Sample Site ABG pH (7.35-7.45) ABG pCO2 (35-45) mmHg ABG pO2 (80.0-100.0) mmH g ABG HCO3 (22-26) mmol/L ABG O2 Saturation ABG Base Excess (-2.0-2.0) mmol/ L Ted Test A-a O2 Gradient (5-10) mmHg Hematocrit (42-52) % Hgb O2 Saturation (95-100) % Carboxyhemoglobin (0.4-20.1) %THgb Methemoglobin (0.4-1.5) % Total Hemoglobin (14-18) g/dL Ionized Calcium (1.1-1.4) mmol/L O2 Delivery Device O2 Liters/Min % FiO2 % Manager Financial Planning ID Sodium (136-145) mmol/L Potassium (3.5-5.1) mmol/L Chloride (98-107) mmol/L Carbon Dioxide (22-29) mmol/L Anion Gap (5-19) BUN (8-23) mg/dL Creatinine (0.7-1.2) mg/dL GFR Calculation (90-130) mL/min Glucose (65-115) mg/dL Calculated Osmolal ity (285-295) mOsm/k g Lactic Acid 0.8 (0.5-2.2) mmol/L Calcium (8.5-10.5) mg/dL Total Bilirubin (0.15-1.2) mg/dL AST (0-40) U/L ALT (0-41) U/L Alkaline Phosphata se (40-130) IU/L Ammonia 32 (16-60) umol/L Creatine Kinase (39-308) U/L Total Protein (6.6-8.7) g/dL Albumin (3.5-5.2) g/dL Globulin (1.3-4.6) g/dL TSH (0.27-4.20) uIU/ mL Urine Color (Yellow) Urine Appearance (CLEAR) Urine pH (5-7) Ur Specific Gravit y (1.005-1.030) Urine Protein (Negative) Urine Glucose (UA) (Normal) Urine Ketones (Negative) Urine Blood (Negative) Urine Nitrate (Negative) Urine Bilirubin (Negative) Urine Urobilinogen (Negative) mg/dL Ur Leukocyte Darshana ase (Negative) Urine RBC (0-2) /hpf Urine WBC (0-5) /hpf Ur Squamous Epith Cells (0-5) /hpf Amorphous Sediment /hpf Urine Bacteria (NONE) /hpf Salicylates (3-10) mg/dL Acetaminophen (10-30) ug/mL Ethyl Alcohol (0-10) mg/dL Discharge Plan Discharge Patient Disposition: Admitted As Inpatient Clinical Impression: Metabolic acidosis, COPD (chronic obstructive pulmonary disease), Diastolic congestive heart failure, Acute kidney injury superimposed on chronic kidney disease, Altered mental status, ESRD (end stage renal disease), Hyperkalemia, Diarrhea Condition: Stable Prescriptions: No Action (DME) oxygen-air delivery systems Device See Rx Instructions .ROUTE .MEDSUPPLY Qty: 1 RF: 0 hydrocodone-acetaminophen 5-325 mg tablet 1 tab PO Q6H PRN (Reason: pain) RF: 0 metoprolol tartrate 25 mg tablet 12.5 mg PO BID RF: 0 levothyroxine 88 mcg tablet 88 mcg PO DAILY RF: 0 budesonide-formoterol [Symbicort] 160-4.5 mcg/actuation HFA aerosol inhaler 2 puff INHALATION BID RF: 0 omega-3 fatty acids-fish oil [Fish Oil] 360-1,200 mg capsule 1 cap PO DAILY RF: 0 RenaPlex-D 800 mcg-12.5 mg -2,000 unit tablet 1 tab PO QPM RF: 0 pantoprazole 40 mg Tablet,Delayed Release (Dr/Ec) 40 mg PO BID 30 Days Qty: 30 RF: 0 Lantus U-100 Insulin 100 unit/mL solution 10 unit SUBCUT BEDTIME RF: 0 amlodipine 5 mg Tablet 5 mg PO DAILY RF: 0 furosemide [Lasix] 80 mg Tablet 80 mg PO BID RF: 0 docusate sodium [Colace] 100 mg capsule 100 mg PO BID Qty: 30 RF: 0 lanthanum 750 mg Tablet,Chewable 1,500 mg PO TID RF: 0 Referrals: Carla Ceballos MD [Primary Care Provider] - Coding Level of Care Code ED Stockfeed Miller for Chg Fwd Exam Comprehensive
--- NOTE | 2020-04-08 07:44 | XR_ITS ---
WS: [id number] PORTABLE CHEST HISTORY: dyspnea COMPARISON: 10/23/2019 Dialysis catheter over the RIGHT thorax with tip ending near the RIGHT atrial junction. Mildly hyperexpanded lungs. No pneumonia. No pleural effusion or pneumothorax. Cardiac size: Normal. Mediastinum/Aorta: Normal mediastinum. Degenerative changes at the glenohumeral joints. XR/XR chest 1V portable [id number] IMPRESSION: No pneumonia. No acute cardiopulmonary disease.
[2020-04-08 07:50] LABS: Basophils % 0.1 %; Hematocrit 38.4 % (42.0-52.0); Hemoglobin 11.7 g/dL (11.7-16.6); Lymphocytes # 0.9 10^3/uL (0.8-4.8); Lymphocytes % 5.8 %; Mean Corpuscular HGB Conc 30.5 g/dL (30.0-36.0); Mean Platelet Volume 9.3 fL (7.4-10.4); Monocytes # 0.8 10^3/uL (0.2-0.9); Monocytes % 5.4 %; Neutrophils # 13.16 10^3/uL (1.8-7.7); Neutrophils % 87.2 %; Nucleated Red Blood Cells % 0.2 %; Platelet Count 329 10^3/cmm (130-400); Red Blood Count 3.34 10^6/uL (4.1-5.3); Red Cell Distribution Width 16.6 % (12.1-15.1); White Blood Count 15.1 10^3/uL (4.0-10.0)
[2020-04-08 08:06] LABS: Alanine Aminotransferase 31 U/L (0-41); Albumin Level 3.7 g/dL (3.5-5.2); Alkaline Phosphatase 106 IU/L (40-130); Blood Urea Nitrogen 77 mg/dL (8-23); Calcium 9.4 mg/dL (8.5-10.5); Chloride 104 mmol/L (98-107); Globulin 2.5 g/dL (1.3-4.6); Glomerular Filtration Rate 12.9 mL/min (90-130); Glucose 130 mg/dL (65-115); Osmolality Calculated 315 mOsm/kg (285-295); Sodium 140 mmol/L (136-145); Total Bilirubin 0.2 mg/dL (0.15-1.2); Total Protein 6.2 g/dL (6.6-8.7)
[2020-04-08 08:08] LABS: Alveolar-Arterial Oxygen Gradi 4.1 mmHg (5-10); Arterial Blood Gas Hematocrit 35.4 % (42-52); Blood Gas Operator Identificat GD; Blood Gas Sample Site Brachial, left; Blood Gas Sample Type Arterial; Carboxyhemoglobin 0.8 %THgb (0.4-20.1); HCO3 ABG 3.7 mmol/L (22-26); HGB O2 Sat 96.7 % (95-100); Ionized Calcium Level - ABG 1.4 mmol/L (1.1-1.4); Oxygen Device NC; Oxygen Saturation ABG 98.5; Potassium Level - ABG 6.5 mmol/L (3.5-5.0); Total Hemoglobin 11.5 g/dL (14-18)
[2020-04-08 08:09] LABS: ABG PCO2 17.4 mmHg (35-45); ABG PH Result 6.94 (7.35-7.45)
[2020-04-08 08:11] LABS: Carbon Dioxide 5 mmol/L (22-29); Creatine Phosphokinase 595 U/L (39-308)
[2020-04-08 08:12] LABS: Anion Gap 38.1 (5-19); Aspartate Amino Transferase 46 U/L (0-40); Potassium 7.1 mmol/L (3.5-5.1)
[2020-04-08] MEDS: sodium bicarbonate 8.4% 1 mEq/mL 50mL Syr 100 MEQ IVP (08:36)
--- NOTE | 2020-04-08 08:37 | PC.NURSE ---
Pt moved to room 10 for dialysis
--- NOTE | 2020-04-08 08:38 | PC.NURSE ---
Pt moved from ER-13 ro ER-10 for dialysis.
[2020-04-08] MEDS: calcium gluconate 0.1 gm/mL 10% SDV 10mL 2 GM IVP (08:42)
[2020-04-08 08:48] LABS: Alcohol Level < 10 mg/dL (0-10)
[2020-04-08 09:01] LABS: Glucose Urine UA Norm (Normal); Ketones Urine Negative (Negative); Protein Urine 1+ (Negative); Urine Appearance Cloudy (CLEAR); Urine Color Yellow (Yellow); pH Urine 5 (5-7)
--- NOTE | 2020-04-08 09:01 | P.CONIM_ITS ---
Providers/Reason For Consult Consulting Physican/Specialty*: felicia kay md / telenephrology Reason for Consult*: renal failure/ met acidosis/ hyperkalemia Primary Care Provider: Carla Ceballos MD History of Present Illness History of Present Illness Helio Reynoso is a 64 year old male ESRD, DM, recent PD catheter placed. PT for last week doing PD- had nausea and diarrhea. to eR today for sob, weakness, lethargy. pt found to have severe met acidosis, hyperkalemia, and hypothermia- renal called for dialysis. Review of Systems General: Reports: 10 or more systems reviewed and unremarkable except in HPI and below Narrative: weak, diarrhea, poor appetite, confusion, SOB. no cp, no abd pain, minimal edema. weak Meds/Allergies Home Medications and Allergies Home Medications Medication Instructions Recorded Confirmed Last Taken Type budesonide-formoterol [Symbicort] 2 puff INHALATION BID 03/15/19 03/29/20 03/13/20 History levothyroxine 88 mcg PO DAILY 03/15/19 03/29/20 03/13/20 History omega-3 fatty acids-fish oil [Fish 1 cap PO DAILY 03/15/19 03/29/20 10/22/19 History Oil] oxygen-air delivery systems #1 04/13/19 03/29/20 Unknown History RenaPlex-D 1 tab PO QPM 08/19/19 03/29/20 03/13/20 History pantoprazole 40 mg PO BID 30 Days #30 tab 10/27/19 03/29/20 03/13/20 Rx hydrocodone 5 mg-acetaminophen 325 1 tab PO Q6H PRN 02/27/20 03/29/20 Unknown History mg tablet metoprolol tartrate 25 mg tablet 12.5 mg PO BID 02/27/20 03/29/20 03/14/20 History Lantus U-100 Insulin 10 unit SUBCUT BEDTIME 03/13/20 03/29/20 03/13/20 History amlodipine 5 mg PO DAILY 03/13/20 03/29/20 03/14/20 History furosemide [Lasix] 80 mg PO BID 03/13/20 03/29/20 03/13/20 History docusate sodium [Colace] 100 mg PO BID #30 cap 03/14/20 03/29/20 Unknown Rx Allergies Allergy/AdvReac Type Severity Reaction Status Date / Time No Known Allergies Allergy Verified 03/29/20 11:24 PFSH Acute PFSH: Medical History Blood transfusion abn reaction or complication, no procedure mishap Cataract disorder type 14 COPD (chronic obstructive pulmonary disease) Diastolic congestive heart failure ESRD (end stage renal disease) Hypertension Hypothyroidism Insulin dependent type 2 diabetes mellitus Iron deficiency anemia Nonalcoholic liver disease, chronic Secondary hyperparathyroidism Surgical History H/O esophagogastroduodenoscopy 2020 History of open reduction and internal fixation (ORIF) procedure Peritoneal dialysis catheter in place (03/14/20) S/P dialysis catheter insertion (08/30/19) Status post creation of arteriovenous fistula Family History Other CAD (coronary artery disease) Hyperlipidemia Hypertension Denies family history of Anesthesia complication Bleeding disorder Cancer Social History Smoking and tobacco status: former smoker Alcohol intake: never Household members: family and other Details: Lives with his mother Current occupational status: disabled History of recent travel: No Vitals/I&O/Wt Last Vital Signs Temp 93.3 F L 04/08/20 07:39 Pulse 88 04/08/20 08:37 Resp 30 H 04/08/20 08:37 BP 133/66 04/08/20 08:37 Pulse Ox 100 04/08/20 08:37 Weight last 48 hrs Weight 83.915 kg Physical Exam Narrative: EXAM NARRATIVE: hypothermic in bed, tachypneic heent- nc/at, eomi, anicteric neck supple lungs clear hheart reg abd soft, nt, nd, +PD catheetr ext 1+ edema neuro- a,a, o x 2+ A&P Additional A&P Information 64 yr old man ESRd, hypothyroidisim, diastolic dysfunction, hip fx, DM, COPD- home 02 dep, anemia 1. AMs, hypothermia, leukocytosis- eval for sepsis -agree w/ vanco and zosyn -stool for c diff -given h/o diarrhea 2. severe met acidosis -likely renal failure- unsure if doing PD correctly -please call Dr. Rapp for further info -emergent HD- 4 hrs, 2k, remove 1,5l -PD now- 2 hr exchange- send cell count for gram stain and cx 3. hyperkalemia- rx medically and emergent HD -will also perform CAPD 4 exchanges a day of 1.5% gluc and see if works 4. mild elevated ck 5. eval diarrhea 6. DM control 7. bone- mineral- metabolism of eSRD- check pth, ca, phos 8. check tsh and cortisol levels seen w/ RN and Dr. Jones Consult Attestations Medical Necessity Statement: severe met acidosis and hyperkalemia Time Spent in Patient Care: Greater than 35 minutes Coding Level of Care Code Acute Residential Insurance Inspector for Brynn Castro
[2020-04-08 09:02] LABS: Add Urine Culture? No; Add Urine Microscopic? YES; Amorphous Sediment Urine 2+ /hpf; Bacteria Urine 1+ /hpf; Bilirubin Urine Neg (Negative); Blood Urine 3+ (Negative); Leukocyte Esterase Urine Negative (Negative); Nitrate Urine Negative (Negative); RBC Urine 0-4 /hpf (0-2); Urobilinogen Urine Norm (Negative)
[2020-04-08] MEDS: piperacillin-tazobactam 3.375 GM in sodium chloride 0.9% (plus) 50 ML IV (09:14)
[2020-04-08 09:17] LABS: Lactic Sepsis W/Reflex 0.8 mmol/L (0.5-2.2)
[2020-04-08] MEDS: vancomycin 1,000 MG in sodium chloride 0.9% 250 ML 250 MG IV (09:19)
[2020-04-08 10:10] LABS: Acetaminophen 8.4 ug/mL (10-30); Thyroid Stimulating Hormone 3.37 uIU/mL (0.27-4.20)
[2020-04-08 10:12] LABS: Salicylate < 0.3 mg/dL (3-10)
[2020-04-08] MEDS: insulin regular-human 10 UNIT in SYRINGE 1 EACH IVP (10:25)
--- NOTE | 2020-04-08 10:27 | PC.PHAR ---
Pt is unable to verify mediations, mother is not answering phone calls. Ext med history shows renaplex and lathanium 750mg 2 tabs TID.
[2020-04-08] MEDS: dextrose 50% syringe 50 mL IVP ×2 (10:28→20:27)
[2020-04-08] MEDS: sodium bicarbonate 150 MEQ in dextrose 5% 1,000 ML IV (10:29)
[2020-04-08 10:40] LABS: Ammonia 32 umol/L (16-60)
--- NOTE | 2020-04-08 10:50 | P.HP_ITS ---
Providers/Chief Complaint Primary Care Provider: Carla Ceballos MD Chief Complaint: resp distress History of Present Illness 64-year-old gentleman with history of ESRD, recently initiated on peritoneal dialysis with tunneled hemodialysis catheter still in place in right subclavian vein, was brought in for evaluation due to dyspnea, tachypnea, with noted minimal duration of mental status on presentation in ER. It appears that his peritoneal dialysis catheter was first placed 3-1/2 weeks ago. He has been in the process of transitioning from hemodialysis to PD. It appears that he is last prescribed Alysis was last week, with no dialysis performed over the weekend. With difficulties noted with potential dialysis on nursing assessment. Over the weekend he reportedly had diarrhea. On questioning him he does not have a dedicated room at home for peritoneal dialysis. He performs it in the living room. Lives at home with his mother. Denies any pets at home. He denies any abdominal pain. In ER he is noted to have leukocytosis to 15.1. Pulse is 104. He is afebrile, but initial temperature noted low 93.3. He is b eing warmed. He is noted requiring 3 L nasal cannula oxygen. ABG with metabolic acidosis, pH 6.94/17 point 4/144/3 0.7 on 2 L nasal cannula. He is noted to have hyperkalemia, potassium 7.1. Bicarb 5. Anion gap 38.1. BUN 77. Creatinine 4.6. He states he still produces urine. Glucose is 130. AST 46. CK 595. UA with 1+ bacteria. 3+ blood. 0-4 RBC. Acetaminophen level 8.4. Blood cultures were collected in ER. He is started on Zosyn and vancomycin. Received sodium bicarb. Calcium gluconate. Received insulin dextrose. He was seen by nephrology, and arrangements are underway for emergent hemodialysis. Review of Systems Const: Denies: fever(s), chills, body aches or malaise Eyes: Denies: change in vision or eye redness ENMT: Denies: throat pain, oral sores or ear or mastoid pain Card: Denies: chest pain, edema, pre-syncope or dyspnea on exertion Resp: Reports: other (fast breathing); Denies: productive cough, change in phlegm color or hemoptysis GI: Reports: diarrhea; Denies: abdominal pain, nausea, vomiting, constipation, hematochezia or melena : Denies: flank pain, difficulty urinating, urinary frequency, urinary urgency (still produces urine) or hematuria Musc: Denies: back pain, joint swelling or joint redness Skin/Breast: Denies: rash, sores or new lesions Neuro: Denies: headache(s), numbness in extremities, weakness in extremities, dizziness, confusion or seizure-like activity Endo: Denies: polyuria or polydipsia Alfonso/Lymph: Denies: easy bleeding or purpura All/Imm: Denies: urticaria, throat swelling or tongue swelling Medications/Allergies Home Medications Medication Instructions Recorded Confirmed Last Taken Type budesonide-formoterol [Symbicort] 2 puff INHALATION BID 03/15/19 04/08/20 03/13/20 History levothyroxine 88 mcg PO DAILY 03/15/19 04/08/20 03/13/20 History omega-3 fatty acids-fish oil [Fish 1 cap PO DAILY 03/15/19 04/08/20 10/22/19 History Oil] oxygen-air delivery systems #1 04/13/19 04/08/20 Unknown History RenaPlex-D 1 tab PO QPM 08/19/19 04/08/20 03/13/20 History pantoprazole 40 mg PO BID 30 Days #30 tab 10/27/19 04/08/20 03/13/20 Rx hydrocodone 5 mg-acetaminophen 325 1 tab PO Q6H PRN 02/27/20 04/08/20 Unknown History mg tablet metoprolol tartrate 25 mg tablet 12.5 mg PO BID 02/27/20 04/08/20 03/14/20 History Lantus U-100 Insulin 10 unit SUBCUT BEDTIME 03/13/20 04/08/20 03/13/20 History amlodipine 5 mg PO DAILY 03/13/20 04/08/20 03/14/20 History furosemide [Lasix] 80 mg PO BID 03/13/20 04/08/20 03/13/20 History docusate sodium [Colace] 100 mg PO BID #30 cap 03/14/20 04/08/20 Unknown Rx lanthanum 1,500 mg PO TID 04/08/20 04/08/20 Unknown History Allergies Allergy/AdvReac Type Severity Reaction Status Date / Time No Known Allergies Allergy Verified 03/29/20 11:24 PFSH Acute PFSH: Medical History Blood transfusion abn reaction or complication, no procedure mishap Cataract disorder type 14 COPD (chronic obstructive pulmonary disease) Diastolic congestive heart failure ESRD (end stage renal disease) Hypertension Hypothyroidism Insulin dependent type 2 diabetes mellitus Iron deficiency anemia Nonalcoholic liver disease, chronic Secondary hyperparathyroidism Surgical History H/O esophagogastroduodenoscopy 2020 History of open reduction and internal fixation (ORIF) procedure Peritoneal dialysis catheter in place (03/14/20) S/P dialysis catheter insertion (08/30/19) Status post creation of arteriovenous fistula Family History Other CAD (coronary artery disease) Hyperlipidemia Hypertension Denies family history of Anesthesia complication Bleeding disorder Cancer Social History Smoking and tobacco status: former smoker Alcohol intake: never Household members: family and other Details: Lives with his mother Current occupational status: disabled History of recent travel: No Vitals/I&O/Wt Last Vital Signs Temp 97.2 F L 04/08/20 10:30 Pulse 104 H 04/08/20 10:30 Resp 22 H 04/08/20 10:30 BP 116/70 04/08/20 10:30 Pulse Ox 98 04/08/20 10:30 Weight last 48 hrs Weight 83.915 kg Physical Exam Const: COMMON NORMALS: no acute distress and patient oriented x3 GENERAL AP PEARANCE: cooperative NUTRITIONAL APPEARANCE: overweight ORIENTATION/CONSCIOUSNESS: Yes awake OTHER: HENMT: COMMON NORMALS: oropharynx normal Neck/C-Spine: COMMON NORMALS: no JVD Resp: COMMON NORMALS: normal respiratory effort and clear to auscultation bilaterally EFFORT & INSPECTION: Yes tachypneic AUSCULTATION: clear to auscultation bilaterally Cardio: COMMON NORMALS: no JVD, regular rhythm, S1 normal heart sound present, S2 normal heart sound present and No murmurs present (Cardio) RHYTHM: regular rhythm HEART SOUNDS: S1 normal heart sound present and S2 normal heart sound present GI: COMMON NORMALS: Normal to inspection, nondistended, normoactive bowel sounds present, Soft to palpation and non-tender PALPATION: Yes Soft to palpation Extremity: COMMON NORMALS: no joint enlargement and no pedal edema Neuro: COMMON NORMALS: patient oriented x3 and moves all extremities Skin: COMMON NORMALS: no rashes or lesions noted GENERAL SKIN EXAM: no rashes or lesions noted OTHER: Scattered bruises, including over left pectoralis, mid abdomen Data : 04/08/20 07:41 04/08/20 07:41 Micro: Microbiology 04/08/20 10:15 Blood Culture - Preliminary Blood SPECIMEN COLLECTED A&P Assessment and plan (1) Metabolic acidosis: Metabolic acidosis appears to be multifactorial secondary to renal failure, as well as diarrhea over the weekend. Received sodium bicarbonate. Preparations for emergent hemodialysis. Status: Acute (2) Hyperkalemia: Received insulin, dextrose, calcium gluconate, bicarbonate. Currently initiating on emergency dialysis. Low potassium diet. Status: Acute (3) Diarrhea: Stool assessment. Denies abdominal pain. Status: Acute (4) Leukocytosis: Concern for possible sepsis, leukocytosis 15.1. Appears to have regular tachycardia. Heart rates 90s-100s. Leukocytosis, tachycardia may be secondary to metabolic abnormalities, including metabolic acidosis, worsening renal function with inadequate peritoneal dialysis. However, possible sepsis considered. Blood cultures collected. Peritoneal dialysis fluid analysis requested, as well as cultures. He is empirically started currently on Zosyn, vancomycin. Chest x-ray without suggestion of pneumonia. He denies any respiratory symptoms, although he is tachypneic due to metabolic acidosis. Diarrhea noted, stool studies requested. Status: Acute (5) ESRD (end stage renal disease): With acute renal failure, uremia. Appears to had inadequate peritoneal dialysis. Some documented difficulties with dialysis on nursing assessment. At home appears does not have a dedicated room for dialysis. Lives at home with his mother. Appreciate nephrology recommendations. Question will be whether he is needing additional training, or whether able to continue peritoneal dialysis at all. Status: Acute Additional A&P Information Chronic limb length discrepancy. L leg shorter. Walks w cane at home. COPD: Not in exacerbation DM2: Continue insulin HTN Diastolic CHF ALEC Hypothyroidism Other chronic conditions noted. Attestations Medical Necessity Statement*: Admission of over 2 midnights is going to be needed for assessment of management of acute renal failure, including severe hyperkalemia, metabolic acidosis, assessment of diarrhea. Coding Level of Care Code Acute Renal Medicine Physician for Chg Fwd Diagnoses Metabolic acidosis E87.2 Hyperkalemia E87.5 Diarrhea R19.7 Leukocytosis D72.829 ESRD (end stage renal disease) N18.6
[2020-04-08 11:11] LABS: Calcium 9.6 mg/dL (8.5-10.5); Parathyroid Hormone 20.7 pg/mL (15-65)
[2020-04-08 11:28] LABS: Lipase 44 U/L (13-60)
--- NOTE | 2020-04-08 13:45 | PC.NURSE ---
Dialysis nurse stated that she has administered 350ml of normal saline since pt has been on dialysis. Normal saline ordered from physician was placed at bedside for further monitoring of blood pressure.
[2020-04-08 14:09] LABS: Hepatitis B Surface AB 53.8 (0-8.5); Hepatitis B Surface Antigen Non-Reactive (Nonreactive); Hepatitis C Virus Antibody Non-Reactive (Nonreactive)
[2020-04-08 14:23] LABS: Cortisol Random 29.16 ug/dL (2.47-19.5)
[2020-04-08 20:10] LABS: Glucose Point of Care 62 mg/dL (70-110)
[2020-04-08 20:48] LABS: Glucose Point of Care 156 mg/dL (70-110)
[2020-04-08 22:39] LABS: Glucose Point of Care 123 mg/dL (70-110)
--- NOTE | 2020-04-08 23:13 | PC.NURSE ---
Addendum entered by Ramsey Cruz RN 04/08/20 23:35: Correction, report received from SULMA Petersen Original Note: Multiple medications not administered in ED and documetned accordingly, protonix late due to not being administered on time. PD dialysis not completed accordingly. Patient remains in ED at this time, awaiting admission to unit. No repeat labs completed since am of 04/08/2020. Time change provided to zosyn administration due to patient not having received in ED. Report received from SULMA Draper
[2020-04-08 23:16] LABS: Mononuclear #, Pertinoneal Fl 0.079 10^3/uL; Mononuclear %, Pleural Fluid 72 %; Polynuclear # Cells, Perit 0.031 10^3/uL; Polynuclear Cells, Pleural % 28 %
[2020-04-08 23:21] LABS: Glucose Point of Care 113 mg/dL (70-110)
[2020-04-08] MEDS: insulin glargine 100 units/1 mL 5 UNIT SUBCUT (23:28)
[2020-04-09] VITALS (41 sets, daily range): BP systolic 116–161; BP diastolic 55–119; PULSE 2–119; RESP 14–29; TEMP 36.3–38.6; O2SAT 90–100
[2020-04-09] MEDS: piperacillin-tazobactam 3.375 GM in sodium chloride 0.9% (plus) 50 ML IV ×2 (00:10→11:48)
[2020-04-09 00:47] LABS: Appearance, Peritoneal Fluid Clear (Clear); Appearance, Pleural Fluid CLEAR (CLEAR); Color, Peritoneal Fluid Colorless (Pale Yellow); Color, Pleural Fluid Colorless (Pale Yellow); PATH Referal YES
[2020-04-09 00:48] LABS: RBC Pertioneal Fluid 0 10^3/uL; WBC Peritoneal Fluid 110 /uL
[2020-04-09] MEDS: pantoprazole DR 40 mg Tablet PO ×3 (00:52→17:58)
[2020-04-09] MEDS: sodium bicarbonate 150 MEQ in dextrose 5% 1,000 ML IV (00:53)
[2020-04-09 00:55] LABS: Blood Gas Sample Type Venous
[2020-04-09 00:56] LABS: Blood Gas Operator Identificat JB; Oxygen Device NC
[2020-04-09 00:57] LABS: Blood Gas Sample Site NOT SPECIFIED
[2020-04-09 00:59] LABS: PCO2 VBG 31.1 mmHg (41-51); pH VBG 7.33 (7.32-7.42)
[2020-04-09 01:00] LABS: Base Excess VBG -8.8 mmol/L (-3.0-3.0); HCO3 VBG 16.2 mmol/L (24-28); PO2 VBG 53.9 mmHg (25-40)
[2020-04-09 01:01] LABS: Venous Blood Gas Hematocrit 31.7 % (42-52)
[2020-04-09 01:19] LABS: Alanine Aminotransferase 30 U/L (0-41); Albumin Level 3.2 g/dL (3.5-5.2); Alkaline Phosphatase 84 IU/L (40-130); Anion Gap 30.2 (5-19); Aspartate Amino Transferase 45 U/L (0-40); Blood Urea Nitrogen 24 mg/dL (8-23); Calcium 8.4 mg/dL (8.5-10.5); Carbon Dioxide 15 mmol/L (22-29); Chloride 96 mmol/L (98-107); Globulin 2.5 g/dL (1.3-4.6); Glomerular Filtration Rate 23.9 mL/min (90-130); Glucose 101 mg/dL (65-115); Magnesium 1.8 mg/dL (1.7-2.3); Osmolality Calculated 288 mOsm/kg (285-295); Phosphorus 4.7 mg/dL (2.5-4.5); Potassium 4.2 mmol/L (3.5-5.1); Sodium 137 mmol/L (136-145); Total Bilirubin 0.2 mg/dL (0.15-1.2); Total Protein 5.7 g/dL (6.6-8.7)
[2020-04-09] MEDS: acetaminophen 325 mg Tablet PO ×2 (01:34→12:04)
[2020-04-09 02:26] LABS: Basophils % 0.1 %; Hematocrit 37.1 % (42.0-52.0); Lymphocytes # 0.7 10^3/uL (0.8-4.8); Lymphocytes % 7.3 %; Mean Corpuscular HGB Conc 32.3 g/dL (30.0-36.0); Mean Corpuscular Hemoglobin 35.7 pg (28.0-34.0); Mean Corpuscular Volume 110.4 fL (80-94); Mean Platelet Volume 9.2 fL (7.4-10.4); Monocytes # 0.7 10^3/uL (0.2-0.9); Monocytes % 7.5 %; Neutrophils # 8.07 10^3/uL (1.8-7.7); Neutrophils % 84.5 %; Nucleated Red Blood Cells % 0.2 %; Platelet Count 187 10^3/cmm (130-400); Red Blood Count 3.36 10^6/uL (4.1-5.3); Red Cell Distribution Width 16.6 % (12.1-15.1); White Blood Count 9.6 10^3/uL (4.0-10.0)
[2020-04-09] MEDS: Dianeal low Ca w/1.5% dex 2,000 mL Bag 2000 ML INTRAPERIT ×4 (02:31→22:26)
--- NOTE | 2020-04-09 07:20 | PC.NURSE ---
Up0n administration of PD @0230 patient verified that he was not instilled with fluid at this time. Only 10 ml removed.
--- NOTE | 2020-04-09 08:02 | PM.PN ---
Subjective Subjective: Interval history: MS improving. still confused. weak. no n/v/f/c/blankenship/d Medications: Reviewed: Yes Medication Review Details: Current Medications Acetaminophen (Acetaminophen 325 Mg Tablet) 325 - 650 mg PO Q4H PRN PRN Reason: MILD PAIN OR INCREASE TEMP Last Admin: 04/09/20 01:34 Dose: 650 mg Documented by: Dextrose (Dextrose 50% Syringe 50 Ml) 25 ml IVP ONCE PRN; Protocol PRN Reason: hypoglycemia protocol Dextrose (Dextrose 50% Syringe 50 Ml) 50 ml IVP PRN PRN; Protocol PRN Reason: hypoglycemia protocol Last Admin: 04/08/20 20:27 Dose: 50 ml Documented by: Glucagon (Glucagon 1 Mg/Ml Inj 1 Ml) 1 mg IM ONCE PRN; Protocol PRN Reason: Adult Acute Hypoglycemia Prot. Norepinephrine Bitartrate 4 mg (/ Dextrose) 254 mls @ 0 mls/hr IV .Q0M LENNIE; Protocol Last Titration: 04/09/20 00:02 Dose: 0 ml/hr, 0 mls/hr Documented by: Dextrose (D5w) 500 mls @ 100 mls/hr IV ONCE PRN; Protocol PRN Reason: Adult Acute Hypoglycemia Prot Vancomycin HCl 1,000 mg/ (Sodium Chloride) 250 mls @ 250 mls/hr IV Q48H LENNIE; Protocol Piperacillin Sod/Tazobactam (Sod 3.375 gm/ Sodium Chloride) 50 mls @ 12.5 mls/hr IV Q12H LENNIE; Protocol Last Admin: 04/09/20 00:10 Dose: 12.5 mls/hr Documented by: Insulin Aspart (Insulin Aspart 100 Unit/1 Ml) 0 unit SUBCUT WM&BEDTIME LENNIE; Protocol Last Admin: 04/08/20 22:52 Dose: Not Given Documented by: Levothyroxine Sodium (Levothyroxine 88 Mcg Tablet) 88 mcg PO DAILY LENNIE Ondansetron HCl (Ondansetron 2 Mg/Ml Sdv 2 Ml) 4 mg IVP Q6H PRN PRN Reason: NAUSEA AND VOMITING Pantoprazole Sodium (Pantoprazole Dr 40 Mg Tablet) 40 mg PO BID LENNIE Last Admin: 04/09/20 00:52 Dose: 40 mg Documented by: Peritoneal Dialysis Solution (Dianeal Low Ca W/1.5% Dex 2,000 Ml Bag) 2,000 ml INTRAPERIT Q6H LENNIE Last Admin: 02/16/21 02:31 Dose: 2,000 ml Documented by: Fluticasone/Salmeterol (Fluticasone-Salmeterol 500-50 Diskus) 1 puff INHALATION BID.RESPIRATORY LENNIE Vitals/I&O/Wt Last Vital Signs Temp 99.6 F 04/09/20 04:00 Pulse 105 H 04/09/20 06:30 Resp 18 04/09/20 06:30 BP 151/70 04/09/20 06:30 Pulse Ox 91 04/09/20 06:30 04/08/20 04/09/20 04/09/20 22:59 06:59 14:59 Intake Total 122.75 / 575.35 9.125 / 584.475 Balance 122.75 / 575.35 9.125 / 584.475 Weight last 48 hrs Weight 83.915 kg Physical Exam Narrative: EXAM NARRATIVE: comfortable in bed, tachycardic, awake and alertc heent- nc/at, eomi, anicteric neck supple lungs clear heart reg, tachy abd soft, nt, nd, +PD catheter ext 1+ edema neuro- a,a, o x 2 pulses weak DP and PT Data : 04/09/20 01:47 04/09/20 00:45 Micro: Microbiology 04/08/20 08:35 Blood Culture - Preliminary Blood SPECIMEN COLLECTED 04/08/20 10:15 Blood Culture - Preliminary Blood SPECIMEN COLLECTED A&P Additional A&P Information 64 yr old man ESRd, hypothyroidisim, diastolic dysfunction, hip fx, DM, COPD- home 02 dep, anemia 1. AMS- improving w/ abx and HD 2.hypothermia, leukocytosis- improving w/ abx and HD -cultures are NGTD -renal dose abx per medicine -check vanco level in am -stool for c diff -given h/o diarrhea 3. severe met acidosis -likely renal failure- he was training on PD last week and did not do HD -improving w/ dialysis 4. ESRD- will perform PD today 5 exchanges 2 l fills of 1.5% gluc -will need HD on d/c -when MS improves, will discuss risks and benefits of HD and PD w/ pt -PD cell count 110- is negative 5. mild elevated ck - repeat 6. DM control 7. bone- mineral- metabolism of eSRD- check pth-low at 20- hold vit d analouges - ca is good at 8.4, phos = 4.7 8. check tsh and cortisol levels seen w/ RN and Dr. Jones Attestations Medical Necessity Statement*: ams, esrd Time Spent in Patient Care: 16 - 35 minutes Coding Level of Care Code Acute Early Years Teacher for Brynn Castro
[2020-04-09 08:28] LABS: Glucose Point of Care 187 mg/dL (70-110)
--- NOTE | 2020-04-09 08:43 | PM.PN ---
Subjective Subjective: Interval history: He is feeling better, he is generally weak, but denies any complaints. Denies any headache or dizziness. Denies any numbness or focal weakness. Denies any nausea, chest pain or pressure, abdominal discomfort. States his appetite is okay and he is currently working on eating his breakfast. Vitals/I&O/Wt Last Vital Signs Temp 99.6 F 04/09/20 04:00 Pulse 105 H 04/09/20 06:30 Resp 18 04/09/20 06:30 BP 151/70 04/09/20 06:30 Pulse Ox 91 04/09/20 06:30 04/08/20 04/09/20 04/09/20 22:59 06:59 14:59 Intake Total 122.75 / 575.35 9.125 / 584.475 Balance 122.75 / 575.35 9.125 / 584.475 Weight last 48 hrs Weight 83.915 kg Physical Exam Const: COMMON NORMALS: no acute distress and patient oriented x3 GENERAL APPEARANCE: cooperative NUTRITIONAL APPEARANCE: overweight ORIENTATION/CONSCIOUSNESS: Yes awake OTHER: Sitting up in bed. Slowly working on his breakfast tray. HENMT: COMMON NORMALS: oropharynx normal Neck/C-Spine: COMMON NORMALS: no JVD Resp: COMMON NORMALS: normal respiratory effort and clear to auscultation bilaterally EFFORT & INSPECTION: Yes tachypneic AUSCULTATION: clear to auscultation bilaterally Cardio: COMMON NORMALS: no JVD, regular rhythm, S1 normal heart sound present, S2 normal heart sound present and No murmurs present (Cardio) RHYTHM: regular rhythm HEART SOUNDS: S1 normal heart sound present and S2 normal heart sound present GI: COMMON NORMALS: Normal to inspection, nondistended, normoactive bowel sounds present, Soft to palpation and non-tender PALPATION: Yes Soft to palpation Extremity: COMMON NORMALS: no joint enlargement and no pedal edema Neuro: COMMON NORMALS: patient oriented x3 and moves all extremities Skin: COMMON NORMALS: no rashes or lesions noted GENERAL SKIN EXAM: no rashes or lesions noted OTHER: Scattered bruises, including over left pectoralis, mid abdomen Data : 04/09/20 01:47 04/09/20 00:45 Micro: Microbiology 04/08/20 22:44 Gram Stain - Final Peritoneal Fluid 04/08/20 08:35 Blood Culture - Preliminary Blood SPECIMEN COLLECTED 04/08/20 10:15 Blood Culture - Preliminary Blood SPECIMEN COLLECTED A&P Assessment and plan (1) Metabolic acidosis: Improving. Continue hemodialysis together with peritoneal dialysis as per discussion with nephrology. Does not appear to have an active infection at this time, without addition of peritonitis on peritoneal fluid analysis, with fluid treated peritonitis also considered, although should be much less likely. Gram stain is negative. 30 PMN in the fluid. He denies any abdominal pain. His appetite is good. Chest x-ray not suggestive of pneumonia. UA not suggestive of UTI. He is still generally weak, although anticipate this should hopefully improve with additional dialysis. Metabolic acidosis appears to be multifactorial secondary to renal failure, as well as diarrhea over the weekend.\ So far no recurrent diarrhea. Status: Acute (2) Hyperkalemia: Treated. Normalized. Status: Acute (3) Diarrhea: Stool assessment. Denies abdominal pain. Status: Acute (4) Leukocytosis: Leukocytosis resolved. So far no suggestion of active infection or sepsis. Low possibility of partially treated peritonitis, although fluid not suggestive, Gram stain negative, he has no abdominal pain, good appetite this morning. For now continue antibiotics, if continues to do well, will de-escalate. Empirically started currently on Zosyn, vancomycin. Diarrhea reported on presentation, stool studies requested. Status: Acute (5) ESRD (end stage renal disease): With acute renal failure, uremia. Appears to have had inadequate peritoneal dialysis. Some documented difficulties with dialysis on nursing assessment. At home appears does not have a dedicated room for dialysis. Lives at home with his mother. Appreciate nephrology recommendations. At this time and on discharge continue as per recommendations with combination of hemodialysis and peritoneal dialysis until additional reassessment, and determination can be made whether moving forward he can switch entirely to PD, or be limited to hemodialysis. Status: Acute Additional A&P Information Chronic limb length discrepancy. L leg shorter. Walks w cane at home. COPD: Not in exacerbation DM2: Continue insulin HTN Diastolic CHF ALEC Hypothyroidism Other chronic conditions noted. Attestations Medical Necessity Statement*: Continue admission for assessment management of acute renal failure, metabolic acidosis, generalized weakness, diarrhea. Coding Level of Care Code Acute Aircraft Structural Repairer for Chg Fwd Exam Comprehensive Diagnoses Metabolic acidosis E87.2 Hyperkalemia E87.5 Diarrhea R19.7 Leukocytosis D72.829 ESRD (end stage renal disease) N18.6
[2020-04-09] MEDS: b-complex-vitamin c Tablet 1 EACH PO (09:11)
[2020-04-09] MEDS: levothyroxine 88 mcg Tablet PO (09:11)
--- NOTE | 2020-04-09 09:12 | PC.NURSE ---
MAR delay:insulin. Pt still eating meal at this tiem. This nurse busy assisting another pt with their meal.
[2020-04-09 09:58] LABS: Vancomycin Random 7.1 ug/mL (20.0-40.0)
--- NOTE | 2020-04-09 10:42 | PC.CHAP ---
Pastoral Care Encounter/Spiritual Assessment Type of Contact [] Declined executive asst visit [] Patient/Family/Request visit [] Outpatient visit [] Follow-up visit [] Physician referral [] Code/Alert [x] Routine visit [] Staff referral [] Actively dying [] Patient sleeping [] Family support [] [] Out of room [] Palliative care [] [] Receiving care in room [] Pre-surgical visit [] Trauma [] Long length of stay [x] ICU visit [] Other: Relational/Emotional Strength [] Patient feels connected with others/family/visitors/staff [] Distress [] Loneliness/isolation [] Abandonment Spirituality of Patient [] Person of Bhavana [] Attends Gnosticism of their Bhavana [] Believes in Prayer [] Reads Bible or Druze materials [] There are Spiritual issues to be addressed Pelletizer Operator Interventions [x] Prayer [] Active listening [] Non-anxious presence [] Spiritual/emotional support [] Crisis/trauma care [] Spiritual counseling [] Bereavement support [] Provided bereavement packet [] Provided Bible/devotional materials [] Provided toy/stuffed animal, coloring book to patient or family member [] Provided Communion [] Anointing/[place] [] Salvation [x] Completed spiritual assessment [] Other: Impact on Illness or Injury [] Angry [] Fearful [] Anxious [] Often cries [] Exhaustion [] Unable to work [] Unable to attend taoism [] Unable to walk/stand [] Unable to read [] Unable to drive [] Unable to eat/drink [] Unable to sleep [] Unable to be with family [] Patient intubated [] Other: Summary patient appears to be handy capped... executive asst problem she would see him again tomorrow. Time spent with patient 10 min
--- NOTE | 2020-04-09 11:48 | PC.NURSE ---
Aicha delay due to PD and incontinence care.
[2020-04-09 12:00] LABS: Glucose Point of Care 150 mg/dL (70-110)
--- NOTE | 2020-04-09 14:49 | PC.NURSE ---
Dr Oneill notified of this nurse's concerns about pt caring for himself at home and need for PT. Pt stated he gets around with a wheeled walker at home and his 86 yo mother helps him with toileting sometimes. Today pt stated he needed to use BSC, he required moderate/maximum asist of 2 to transfer. also notified that family does not understand PD. While pt. talking on the phone with his mother, she asked about dialysis, He stated he did not know what was going on. Neither of them understood the term dwell in relation to PD.
--- NOTE | 2020-04-09 15:19 | PC.NURSE ---
Addendum entered by Nevaeh Arshad RN 04/09/20 16:06: APR has dialysate scheduled every 4 hours. Original Note: Peritoneal dialysate fluid on APR does not match up with dwell times ordered by physician. Physician ordered dialysate 5x a day and ordered dwell time of 5 hours.. So scanning of the dialysate will not be on the time in the APR.
[2020-04-09 17:19] LABS: Glucose Point of Care 106 mg/dL (70-110)
--- NOTE | 2020-04-09 17:20 | PC.NURSE ---
Report given to France Hernandez.
--- NOTE | 2020-04-09 17:55 | PC.NURSE ---
Pt transferred to [facility] room 268 via W/C. All belongings with pt.
[2020-04-09] MEDS: metoprolol tartrate 25 mg Tablet 12.5 MG PO (17:58)
[2020-04-09 20:17] LABS: Glucose Point of Care 189 mg/dL (70-110)
--- NOTE | 2020-04-09 22:30 | PC.NURSE ---
NURSE IN ROOM ASSESSING PT.
[2020-04-10] VITALS (7 sets, daily range): BP systolic 135–171; BP diastolic 68–80; PULSE 68–99; RESP 17–18; TEMP 36.3–36.7; O2SAT 95–99
[2020-04-10] MEDS: Dianeal low Ca w/1.5% dex 2,000 mL Bag 2000 ML INTRAPERIT (03:27)
[2020-04-10 06:11] LABS: Basophils % 0.1 %; Eosinophils # 0.1 10^3/uL (0.0-0.8); Eosinophils % 0.5 %; Hematocrit 32.2 % (42.0-52.0); Hemoglobin 10.3 g/dL (11.7-16.6); Lymphocytes # 0.9 10^3/uL (0.8-4.8); Lymphocytes % 9.8 %; Mean Corpuscular Hemoglobin 35.4 pg (28.0-34.0); Mean Corpuscular Volume 110.7 fL (80-94); Mean Platelet Volume 9.1 fL (7.4-10.4); Monocytes # 0.9 10^3/uL (0.2-0.9); Monocytes % 9.6 %; Neutrophils # 7.62 10^3/uL (1.8-7.7); Neutrophils % 79.6 %; Nucleated Red Blood Cells % 0.2 %; Platelet Count 218 10^3/cmm (130-400); Red Blood Count 2.91 10^6/uL (4.1-5.3); Red Cell Distribution Width 15.6 % (12.1-15.1); White Blood Count 9.6 10^3/uL (4.0-10.0)
[2020-04-10 06:30] LABS: Glucose Point of Care 109 mg/dL (70-110)
[2020-04-10 06:37] LABS: Alanine Aminotransferase 49 U/L (0-41); Albumin Level 3.1 g/dL (3.5-5.2); Alkaline Phosphatase 80 IU/L (40-130); Anion Gap 19.7 (5-19); Aspartate Amino Transferase 54 U/L (0-40); Blood Urea Nitrogen 32 mg/dL (8-23); Calcium 8.1 mg/dL (8.5-10.5); Carbon Dioxide 27 mmol/L (22-29); Chloride 97 mmol/L (98-107); Globulin 2.6 g/dL (1.3-4.6); Glomerular Filtration Rate 22.9 mL/min (90-130); Glucose 110 mg/dL (65-115); Magnesium 1.7 mg/dL (1.7-2.3); Osmolality Calculated 300 mOsm/kg (285-295); Phosphorus 3.6 mg/dL (2.5-4.5); Sodium 141 mmol/L (136-145); Total Bilirubin 0.4 mg/dL (0.15-1.2); Total Protein 5.7 g/dL (6.6-8.7)
[2020-04-10 06:40] LABS: Potassium 2.7 mmol/L (3.5-5.1)
--- NOTE | 2020-04-10 08:21 | PM.PN ---
Subjective Subjective: Interval history: lethargic, weak, soft stools, poor appetite. no sob Medications: Reviewed: Yes Medication Review Details: Current Medications Acetaminophen (Acetaminophen 325 Mg Tablet) 325 - 650 mg PO Q4H PRN PRN Reason: MILD PAIN OR INCREASE TEMP Last Admin: 04/09/20 12:04 Dose: 650 mg Documented by: Dextrose (Dextrose 50% Syringe 50 Ml) 25 ml IVP ONCE PRN; Protocol PRN Reason: hypoglycemia protocol Dextrose (Dextrose 50% Syringe 50 Ml) 50 ml IVP PRN PRN; Protocol PRN Reason: hypoglycemia protocol Last Admin: 04/08/20 20:27 Dose: 50 ml Documented by: Glucagon (Glucagon 1 Mg/Ml Inj 1 Ml) 1 mg IM ONCE PRN; Protocol PRN Reason: Adult Acute Hypoglycemia Prot. Dextrose (D5w) 500 mls @ 100 mls/hr IV ONCE PRN; Protocol PRN Reason: Adult Acute Hypoglycemia Prot Insulin Aspart (Insulin Aspart 100 Unit/1 Ml) 0 unit SUBCUT WM&BEDTIME [facility]; Protocol Last Admin: 04/10/20 06:47 Dose: Not Given Documented by: Levothyroxine Sodium (Levothyroxine 88 Mcg Tablet) 88 mcg PO DAILY [facility] Last Admin: 04/09/20 09:11 Dose: 88 mcg Documented by: Magnesium Oxide (Magnesium Oxide 400 Mg Tablet) 400 mg PO BID [facility] Stop: 04/11/20 01:00 Metoprolol Tartrate (Metoprolol Tartrate 25 Mg Tablet) 12.5 mg PO BID [facility] Last Admin: 04/09/20 17:58 Dose: 12.5 mg Documented by: Multivitamins (X-Pbqkpyd-Motnfcb C Tablet) 1 each PO DAILY [facility] Last Admin: 04/09/20 09:11 Dose: 1 each Documented by: Ondansetron HCl (Ondansetron 2 Mg/Ml Sdv 2 Ml) 4 mg IVP Q6H PRN PRN Reason: NAUSEA AND VOMITING Pantoprazole Sodium (Pantoprazole Dr 40 Mg Tablet) 40 mg PO BID [facility] Last Admin: 04/09/20 17:58 Dose: 40 mg Documented by: Peritoneal Dialysis Solution (Dianeal Low Ca W/1.5% Dex 2,000 Ml Bag) 2,000 ml INTRAPERIT Q6H [facility] Potassium Chloride (Potassium Chloride Er 20 Meq Tablet) 40 meq PO Q6H [facility] Stop: 04/10/20 14:01 Fluticasone/Salmeterol (Fluticasone-Salmeterol 500-50 Diskus) 1 puff INHALATION BID.RESPIRATORY LENNIE Last Admin: 04/09/20 20:11 Dose: 1 puff Documented by: Vancomycin HCl (Vancomycin 1,000 Mg Oral Holly (Btl)) 125 mg PO QID LENNIE Last Admin: 04/09/20 21:49 Dose: 125 mg Documented by: Vitals/I&O/Wt Last Vital Signs Temp 97.8 F 04/10/20 08:00 Pulse 77 04/10/20 08:00 Resp 18 04/10/20 08:00 BP 171/80 04/10/20 08:00 Pulse Ox 98 04/10/20 08:00 04/09/20 04/10/20 04/10/20 22:59 06:59 14:59 Intake Total 50 / 3450 Output Total 0 / 1450 Balance 1999 Physical Exam Narrative: EXAM NARRATIVE: comfortable in bed, VSS, awake and alertc heent- nc/at, eomi, anicteric neck supple lungs clear heart reg, no rubs abd soft, nt, nd, +PD catheter ext 1+ edema neuro- a,a, o x 2 +, more awake, moves all extremities, follows commands pulses weak DP and PT Data : 04/10/20 05:30 04/10/20 05:30 Micro: Microbiology 04/09/20 11:35 Enteric Pathogens (PCR) - Final Stool Routine Collection Parasite Antigen Panel - Final C.difficile Toxin B Gene (PCR) - Final 04/08/20 08:35 Blood Culture - Preliminary Blood NEGATIVE TO DATE 04/08/20 10:15 Blood Culture - Preliminary Blood NEGATIVE TO DATE 04/08/20 22:44 Gram Stain - Final Peritoneal Fluid A&P Additional A&P Information 64 yr old man ESRd, hypothyroidisim, diastolic dysfunction, hip fx, DM, COPD- home 02 dep, anemia 1. AMS- improving w/ abx and dialysis 2.hypothermia, leukocytosis- improving -cont po vanco for c diff colitis -cultures are NGTD 3. severe met acidosis -likely renal failure- he was training on PD last week and did not do HD -improved w/ dialysis 4. ESRD- will perform PD today 4 exchanges 2 l fills of 1.5% gluc -will need HD on d/c -we discussed PD and HD. he is concerned that he becomes hypotensive on HD. will attempt to train PD here. however, on d/c PLEASE SEND FOR HD AND PD TRAINING SIMULTANEOUSLY. -PD cell count 110- is negative 5. replace k and mag and monitor 6. DM control 7. bone- mineral- metabolism of eSRD- check pth-low at 20- hold vit d analouges - ca is good at 8.1, phos = 3.6 8. tsh 3.37, and cortisol levels =29 seen w/ RN telehealth visit plan discussed w/ rN in detail Attestations Medical Necessity Statement*: esrd, hypokalemia Time Spent in Patient Care: 16 - 35 minutes Coding Level of Care Code Acute Lockstitch Back Maker for Brynn Castro
[2020-04-10 09:07] LABS: Vancomycin Trough 5.8 ug/mL (10-15)
[2020-04-10] MEDS: potassium chloride ER 20 mEq Tablet 40 MEQ PO (09:07)
[2020-04-10] MEDS: levothyroxine 88 mcg Tablet PO (09:08)
[2020-04-10] MEDS: metoprolol tartrate 25 mg Tablet 12.5 MG PO ×2 (09:08→17:54)
[2020-04-10] MEDS: pantoprazole DR 40 mg Tablet PO ×2 (09:08→17:55)
[2020-04-10] MEDS: magnesium oxide 400 mg tablet PO ×2 (09:08→17:54)
[2020-04-10] MEDS: b-complex-vitamin c Tablet 1 EACH PO (09:08)
[2020-04-10 14:16] LABS: Glucose Point of Care 125 mg/dL (70-110)
[2020-04-10 17:05] LABS: Glucose Point of Care 194 mg/dL (70-110)
--- NOTE | 2020-04-10 19:01 | P.PN_ITS ---
Subjective Subjective: Interval history: Today he is doing little bit better. Working with physical therapy. Has been having some muscle tightness, some difficulties with maintaining his balance well. Denies pain or discomfort. Vitals/I&O/Wt Last Vital Signs Temp 98.1 F 04/10/20 16:00 Pulse 68 04/10/20 16:00 Resp 17 04/10/20 16:00 BP 135/75 04/10/20 16:00 Pulse Ox 98 04/10/20 16:00 04/10/20 04/10/20 04/10/20 06:59 14:59 22:59 Intake Total 120 / 120 0 / 120 Output Total 0 / 1450 Balance 0 / 2000 120 / 120 0 / 120 Physical Exam Const: COMMON NORMALS: no acute distress and patient oriented x3 GENERAL APPEARANCE: cooperative NUTRITIONAL APPEARANCE: overweight ORIEN TATION/CONSCIOUSNESS: Yes awake OTHER: Sitting up in bed. More alert, interactive today. HENMT: COMMON NORMALS: oropharynx normal Neck/C-Spine: COMMON NORMALS: no JVD Resp: COMMON NORMALS: normal respiratory effort and clear to auscultation bilaterally EFFORT & INSPECTION: Yes tachypneic AUSCULTATION: clear to auscultation bilaterally Cardio: COMMON NORMALS: no JVD, regular rhythm, S1 normal heart sound present, S2 normal heart sound present and No murmurs present (Cardio) RHYTHM: regular rhythm HEART SOUNDS: S1 normal heart sound present and S2 normal heart sound present GI: COMMON NORMALS: Normal to inspection, nondistended, normoactive bowel sounds present, Soft to palpation and non-tender PALPATION: Yes Soft to palpation Extremity: COMMON NORMALS: no joint enlargement and no pedal edema Neuro: COMMON NORMALS: patient oriented x3 and moves all extremities Skin: COMMON NORMALS: no rashes or lesions noted GENERAL SKIN EXAM: no rashes or lesions noted OTHER: Scattered bruises, including over left pectoralis, mid abdomen Data : 04/10/20 05:30 04/10/20 05:30 Micro: Microbiology 04/08/20 22:44 Gram Stain - Final Peritoneal Fluid Body Fluid Culture - Preliminary 04/09/20 11:35 Enteric Pathogens (PCR) - Final Stool Routine Collection Parasite Antigen Panel - Final C.difficile Toxin B Gene (PCR) - Final A&P Assessment and plan (1) C. difficile colitis: Possible severe C. difficile colitis. Started on vancomycin. Some still persistent diarrhea. Generally appears to show some improvement. Continue oral vancomycin. Status: Acute (2) Metabolic acidosis: Mental status, energy level continues to improve. Mobilizing with therapy. Improving. Continue hemodialysis together with peritoneal dialysis as per discussion with nephrology. Continue combination HD and PD per nephrology. Additional discussion took place regarding reevaluation of candidacy of ongoing PD going forward. Low suspicion for bacterial peritonitis. General weakness is gradually improving. He absolutely declines to consider going to senior care facility. Discussed with him concerns regarding generalized weakness, balance, currently active C. difficile infection, in the s etting of also multiple comorbidities including ESRD requiring dialysis, concerned that he only is staying with his mother at home who may have difficult time handling all his needs. He verbalized understanding. Consider distraction, still declines retirement, but states that his sister may be a vailable to also assist with his needs at home. Discussed with case management. Status: Acute (3) Hyperkalemia: Treated. Normalized. Status: Acute (4) Leukocytosis: IV in divided discontinued. Treatment with oral vancomycin for C. difficile infection. Status: Acute (5) ESRD (end stage renal disease): At this time and on discharge continue as per recommendations with combination of hemodialysis and peritoneal dialysis until additional reas sessment, and determination can be made whether moving forward he can switch entirely to PD, or be limited to hemodialysis. Status: Acute Additional A&P Information Chronic limb length discrepancy. L leg shorter. Walks w cane at home. COPD: Not in exacerbation DM2: Continue insulin HTN Diastolic CHF ALEC Hypothyroidism Other chronic conditions noted. Attestations Medical Necessity Statement*: Continue admission for assessment management of possible severe C. difficile colitis. Improving metabolic acidosis, generalized weakness, continue mobilization, disposition planning and arrangements. Coding Level of Care Code Acute Washcoat Wiper for Brynn Castro Diagnoses C. difficile colitis A04.72 Metabolic acidosis E87.2 Hyperkalemia E87.5 Leukocytosis D72.829 ESRD (end stage renal disease) N18.6
[2020-04-10 19:46] LABS: Alanine Aminotransferase 47 U/L (0-41); Albumin Level 3.3 g/dL (3.5-5.2); Alkaline Phosphatase 86 IU/L (40-130); Anion Gap 13.4 (5-19); Aspartate Amino Transferase 41 U/L (0-40); Blood Urea Nitrogen 16 mg/dL (8-23); Calcium 8.2 mg/dL (8.5-10.5); Carbon Dioxide 29 mmol/L (22-29); Chloride 102 mmol/L (98-107); Globulin 2.5 g/dL (1.3-4.6); Glucose 183 mg/dL (65-115); Magnesium 1.7 mg/dL (1.7-2.3); Osmolality Calculated 298 mOsm/kg (285-295); Potassium 3.4 mmol/L (3.5-5.1); Sodium 141 mmol/L (136-145); Total Bilirubin 0.4 mg/dL (0.15-1.2); Total Protein 5.8 g/dL (6.6-8.7)
--- NOTE | 2020-04-10 19:59 | PC.NURSE ---
Received report from off going nurse. Pt's plan of care reviewed. Pt is resting in bed. Respirations are even and unlabored. No s/sx of distress noted. Pt is alert and oriented and able to make his own decisions. Pt denies any pains or concerns at this time. Pt states he had hemo dialysis today for 3 hours and will not be receiving peritoneal dialysis tonight. Bed in lowest and locked position, call light and water within reach, x's 2 rails up. Will continue to monitor.
[2020-04-10 21:00] LABS: Glucose Point of Care 167 mg/dL (70-110)
[2020-04-11] VITALS (8 sets, daily range): BP systolic 132–160; BP diastolic 66–76; PULSE 77–97; RESP 14–18; TEMP 36.4–37; O2SAT 96–100
[2020-04-11 05:49] LABS: Basophils % 0.1 %; Eosinophils # 0.1 10^3/uL (0.0-0.8); Eosinophils % 0.7 %; Hematocrit 31.7 % (42.0-52.0); Hemoglobin 9.6 g/dL (11.7-16.6); Lymphocytes # 1.2 10^3/uL (0.8-4.8); Lymphocytes % 12.4 %; Mean Corpuscular HGB Conc 30.3 g/dL (30.0-36.0); Mean Corpuscular Hemoglobin 35.3 pg (28.0-34.0); Mean Corpuscular Volume 116.5 fL (80-94); Mean Platelet Volume 9.6 fL (7.4-10.4); Monocytes % 10.3 %; Neutrophils # 7.12 10^3/uL (1.8-7.7); Neutrophils % 75.7 %; Nucleated Red Blood Cells % 0 %; Platelet Count 197 10^3/cmm (130-400); Red Blood Count 2.72 10^6/uL (4.1-5.3); Red Cell Distribution Width 15.9 % (12.1-15.1); White Blood Count 9.4 10^3/uL (4.0-10.0)
[2020-04-11 06:03] LABS: Alanine Aminotransferase 34 U/L (0-41); Albumin Level 2.9 g/dL (3.5-5.2); Alkaline Phosphatase 76 IU/L (40-130); Anion Gap 12.2 (5-19); Aspartate Amino Transferase 29 U/L (0-40); Blood Urea Nitrogen 17 mg/dL (8-23); Carbon Dioxide 28 mmol/L (22-29); Chloride 104 mmol/L (98-107); Globulin 2.4 g/dL (1.3-4.6); Glucose 126 mg/dL (65-115); Magnesium 1.7 mg/dL (1.7-2.3); Osmolality Calculated 295 mOsm/kg (285-295); Phosphorus 2.2 mg/dL (2.5-4.5); Potassium 3.2 mmol/L (3.5-5.1); Sodium 141 mmol/L (136-145); Total Bilirubin 0.4 mg/dL (0.15-1.2); Total Protein 5.3 g/dL (6.6-8.7)
[2020-04-11 06:32] LABS: Glucose Point of Care 123 mg/dL (70-110)
--- NOTE | 2020-04-11 07:50 | PM.PN ---
Subjective Subjective: Interval history: feels well. dec diarrhea. no blankenship/sob/cp/itching/ cp/ leg pains Medications: Reviewed: Yes Medication Review Details: Current Medications Acetaminophen (Acetaminophen 325 Mg Tablet) 325 - 650 mg PO Q4H PRN PRN Reason: MILD PAIN OR INCREASE TEMP Last Admin: 04/09/20 12:04 Dose: 650 mg Documented by: Dextrose (Dextrose 50% Syringe 50 Ml) 25 ml IVP ONCE PRN; Protocol PRN Reason: hypoglycemia protocol Dextrose (Dextrose 50% Syringe 50 Ml) 50 ml IVP PRN PRN; Protocol PRN Reason: hypoglycemia protocol Last Admin: 04/08/20 20:27 Dose: 50 ml Documented by: Glucagon (Glucagon 1 Mg/Ml Inj 1 Ml) 1 mg IM ONCE PRN; Protocol PRN Reason: Adult Acute Hypoglycemia Prot. Dextrose (D5w) 500 mls @ 100 mls/hr IV ONCE PRN; Protocol PRN Reason: Adult Acute Hypoglycemia Prot Insulin Aspart (Insulin Aspart 100 Unit/1 Ml) 0 unit SUBCUT WM&BEDTIME [facility]; Protocol Last Admin: 04/10/20 22:20 Dose: 2 unit Documented by: Levothyroxine Sodium (Levothyroxine 88 Mcg Tablet) 88 mcg PO DAILY [facility] Last Admin: 04/10/20 09:08 Dose: 88 mcg Documented by: Metoprolol Tartrate (Metoprolol Tartrate 25 Mg Tablet) 12.5 mg PO BID [facility] Last Admin: 04/10/20 17:54 Dose: 12.5 mg Documented by: Multivitamins (P-Odsfjzn-Lqrebdf C Tablet) 1 each PO DAILY [facility] Last Admin: 04/10/20 09:08 Dose: 1 each Documented by: Ondansetron HCl (Ondansetron 2 Mg/Ml Sdv 2 Ml) 4 mg IVP Q6H PRN PRN Reason: NAUSEA AND VOMITING Pantoprazole Sodium (Pantoprazole Dr 40 Mg Tablet) 40 mg PO BID [facility] Last Admin: 04/10/20 17:55 Dose: 40 mg Documented by: Fluticasone/Salmeterol (Fluticasone-Salmeterol 500-50 Diskus) 1 puff INHALATION BID.RESPIRATORY LENNIE Last Admin: 04/11/20 07:35 Dose: 1 puff Documented by: Vancomycin HCl (Vancomycin 1,000 Mg Oral Holly (Btl)) 125 mg PO QID [facility] Last Admin: 04/10/20 22:18 Dose: 125 mg Documented by: Vitals/I&O/Wt Last Vital Signs Temp 97.8 F 04/11/20 04:13 Pulse 92 04/11/20 07:42 Resp 18 04/11/20 07:42 BP 146/70 04/11/20 04:13 Pulse Ox 96 04/11/20 07:42 04/10/20 04/11/20 04/11/20 22:59 06:59 14:59 Intake Total 0 / 120 Output Total 0 / 0 100 / 100 Balance 0 / 120 -100 / 20 Physical Exam Narrative: EXAM NARRATIVE: comfortable in bed, VSS, awake and alert heent- nc/at, eomi, anicteric neck supple lungs clear heart reg, no rubs abd soft, nt, nd, +PD catheter ext- b/l trace edema neuro- a,a, o x 2 +, more awake, moves all extremities, follows commands pulses weak DP and PT Data : 04/11/20 05:06 04/11/20 05:06 Micro: Microbiology 04/08/20 22:44 Gram Stain - Final Peritoneal Fluid Body Fluid Culture - Preliminary A&P Additional A&P Information 64 yr old man ESRd, hypothyroidisim, diastolic dysfunction, hip fx, DM, COPD- home 02 dep, anemia 1. AMS- improving w/ po vanco and dialysis 2.hypothermia, leukocytosis- improving -cont po vanco for c diff colitis -cultures are NGTD 3. severe met acidosis -likely renal failure- he was training on PD last week and did not do HD -improved w/ dialysis 4. ESRD- the hospital does not have 1.5% glucose PD bags. So we are performing HD -plan HD in am. outpt would cont HD and he will continue to learn how to perform PD. Pt prefers PD, as he is concerned that he becomes hypotensive on HD. -PD cell count 110- is negative 5. replace k and mag and monitor 6. DM control 7. bone- mineral- metabolism of eSRD- check pth-low at 20- hold vit d analouges - ca is good at 8.1, phos = 2.2- no binders 8. tsh 3.37, and cortisol levels =29 9. mild anemia- epo seen w/ RN telehealth visit plan discussed w/ rN in detail Attestations Medical Necessity Statement*: esrd, c diff colitis, weakness Time Spent in Patient Care: 16 - 35 minutes Coding Level of Care Code Acute Care Clinician for Brynn Castro
[2020-04-11] MEDS: levothyroxine 88 mcg Tablet PO (10:33)
[2020-04-11] MEDS: pantoprazole DR 40 mg Tablet PO ×2 (10:33→19:19)
[2020-04-11] MEDS: metoprolol tartrate 25 mg Tablet 12.5 MG PO ×2 (10:34→19:20)
[2020-04-11] MEDS: potassium chloride ER 20 mEq Tablet 40 MEQ PO (10:34)
[2020-04-11] MEDS: b-complex-vitamin c Tablet 1 EACH PO (10:34)
[2020-04-11 11:50] LABS: Glucose Point of Care 170 mg/dL (70-110)
--- NOTE | 2020-04-11 12:51 | PC.SOCIAL ---
pararescue manager gave pt's mom IMM update via phone on 04/11/20 @ 12:50pm. Initialed, dated, timed and placed in chart.
[2020-04-11 16:50] LABS: Glucose Point of Care 232 mg/dL (70-110)
--- NOTE | 2020-04-11 20:12 | P.PN_ITS ---
Subjective Subjective: Interval history: Today while walking to the restroom he lost his strength/balance and slumped down on the PLASTIC PRINTER who caught him and prevented a fall. He denies any new symptoms. Denies any pain. Denies any shortness of breath, dizziness, headache. No chest pain. Discussed with his mother, as well as with him again concern regarding deconditioning, risk of falls, multiple medical conditions requiring close attention, and concern regarding him returning home which may result in a poor outcome. He had already spoke with things with his mother, and has reconsidered, and has decided he will pursue rehabilitation at SNF. He specifically states he does not want to go to [place] where he has been before. Vitals/I&O/Wt Last Vital Signs Temp 97.8 F 04/11/20 19:49 Pulse 97 04/11/20 19:49 Resp 17 04/11/20 19:49 BP 151/67 04/11/20 19:49 Pulse Ox 99 04/11/20 19:49 04/11/20 04/11/20 04/11/20 06:59 14:59 22:59 Intake Total 250 / 250 120 / 370 Output Total 100 / 100 Balance -100 / 20 250 / 250 120 / 370 Physical Exam Const: COMMON NORMALS: no acute distress and patient oriented x3 GENERAL APPEARANCE: cooperative NUTRITIONAL APPEARANCE: overweight ORIENTATION/CONSCIOUSNESS: Yes awake OTHER: Reclined. More alert, interactive today. HENMT: COMMON NORMALS: oropharynx normal Neck/C-Spine: COMMON NORMALS: no JVD Resp: COMMON NORMALS: normal respiratory effort and clear to auscultation bilaterally EFFORT & INSPECTION: Yes tachypneic AUSCULTATION: clear to auscultation bilaterally Cardio: COMMON NORMALS: no JVD, regular rhythm, S1 normal heart sound present, S2 normal heart sound present and No murmurs present (Cardio) RHYTHM: regular rhythm HEART SOUNDS: S1 normal heart sound present and S2 normal heart sound present GI: COMMON NORMALS: Normal to inspection, nondistended, normoactive bowel sounds present, Soft to palpation and non-tender PALPATION: Yes Soft to palpation Extremity: COMMON NORMALS: no joint enlargement and no pedal edema Neuro: COMMON NORMALS: patient oriented x3 and moves all extremities Skin: COMMON NORMALS: no rashes or lesions noted GENERAL SKIN EXAM: no rashes or lesions noted OTHER: Scattered bruises, including over left pectoralis, mid abdomen healing. Data : 04/11/20 05:06 04/11/20 05:06 Micro: Microbiology 04/08/20 22:44 Gram Stain - Final Peritoneal Fluid Body Fluid Culture - Preliminary A&P Assessment and plan (1) C. difficile colitis: Diarrhea slowly forming up. Possible severe C. difficile colitis. Vancomycin. Still with diarrhea. At home lives with his elderly mother would not be able to care for him adequately. Status: Acute (2) Declining functional status: Risk of falls. Deconditioning. Generalized weakness. Multiple medical conditions requiring close progression. Discussed with him and his mother. He after giving things proper consideration decided he is agreeable to go to SNF. Requests specifically not to go back to [place]. Case management working on placement. Status: Acute (3) Metabolic acidosis: Continue combination HD and PD per nephrology. Additional discussion took place regarding reevaluation of candidacy of ongoing PD going forward. Low suspicion for bacterial peritonitis. Status: Acute (4) Hyperkalemia: Treated. Normalized. Status: Acute (5) Leukocytosis: IV antibiotics discontinued. Treatment with oral vancomycin for C. difficile infection. Status: Acute (6) ESRD (end stage renal disease): Continue combination HD and PD on discharge for additional PD training, reassessment is needed by his civil geotechnical engineer to help determine best choice of modality. Status: Acute Additional A&P Information Chronic limb length discrepancy. L leg shorter. Walks w cane at home. Risk of falls. Pending follow-up with orthopedics. COPD: Not in exacerbation DM2: Continue insulin HTN Diastolic CHF ALEC Hypothyroidism Other chronic conditions noted. Attestations Medical Necessity Statement*: Continue admission for assessment and management of C. difficile colitis, mobilization, arrangements for placement to SNF due to severe deconditioning and decline, fall risk, inability to safely discharged home with multiple medical conditions and lack of support. Coding Level of Care Code Acute Electrolysis Operator for Brynn Castro Diagnoses C. difficile colitis A04.72 Declining functional status R53.81 Metabolic acidosis E87.2 Hyperkalemia E87.5 Leukocytosis D72.829 ESRD (end stage renal disease) N18.6
[2020-04-11 21:43] LABS: Glucose Point of Care 220 mg/dL (70-110)
[2020-04-12] VITALS (9 sets, daily range): BP systolic 124–155; BP diastolic 56–91; PULSE 72–102; RESP 16–22; TEMP 36.5–37.1; O2SAT 97–100
[2020-04-12 06:20] LABS: Basophils % 0.4 %; Eosinophils # 0.2 10^3/uL (0.0-0.8); Eosinophils % 1.7 %; Hematocrit 30.1 % (42.0-52.0); Hemoglobin 9.2 g/dL (11.7-16.6); Lymphocytes # 1.4 10^3/uL (0.8-4.8); Mean Corpuscular HGB Conc 30.6 g/dL (30.0-36.0); Mean Corpuscular Hemoglobin 35.2 pg (28.0-34.0); Mean Corpuscular Volume 115.3 fL (80-94); Mean Platelet Volume 10.1 fL (7.4-10.4); Monocytes # 1.2 10^3/uL (0.2-0.9); Neutrophils # 7.29 10^3/uL (1.8-7.7); Nucleated Red Blood Cells % 0 %; Platelet Count 223 10^3/cmm (130-400); Red Blood Count 2.61 10^6/uL (4.1-5.3); Red Cell Distribution Width 15.5 % (12.1-15.1); White Blood Count 10.3 10^3/uL (4.0-10.0)
[2020-04-12 06:32] LABS: Glucose Point of Care 123 mg/dL (70-110)
[2020-04-12 06:37] LABS: Alanine Aminotransferase 30 U/L (0-41); Albumin Level 2.8 g/dL (3.5-5.2); Alkaline Phosphatase 72 IU/L (40-130); Anion Gap 10.6 (5-19); Aspartate Amino Transferase 24 U/L (0-40); Blood Urea Nitrogen 25 mg/dL (8-23); Calcium 7.9 mg/dL (8.5-10.5); Carbon Dioxide 28 mmol/L (22-29); Chloride 104 mmol/L (98-107); Globulin 2.2 g/dL (1.3-4.6); Glomerular Filtration Rate 26.1 mL/min (90-130); Glucose 119 mg/dL (65-115); Magnesium 1.7 mg/dL (1.7-2.3); Osmolality Calculated 294 mOsm/kg (285-295); Phosphorus 1.9 mg/dL (2.5-4.5); Potassium 3.6 mmol/L (3.5-5.1); Sodium 139 mmol/L (136-145); Total Bilirubin 0.3 mg/dL (0.15-1.2)
[2020-04-12] MEDS: b-complex-vitamin c Tablet 1 EACH PO (09:08)
[2020-04-12] MEDS: levothyroxine 88 mcg Tablet PO (09:08)
[2020-04-12] MEDS: pantoprazole DR 40 mg Tablet PO ×2 (09:08→17:42)
[2020-04-12] MEDS: metoprolol tartrate 25 mg Tablet 12.5 MG PO ×2 (09:08→17:42)
[2020-04-12 10:30] LABS: Glucose Point of Care 123 mg/dL (70-110)
--- NOTE | 2020-04-12 12:46 | PM.PN ---
Subjective Subjective: Interval history: Mr. Reynoso is seen and examined on dialysis today. He is tolerating this therapy well, dialysis parameters and hemodynamics reviewed. Access is working well. No uremic symptoms. He is still having frequent bowel movements, however, they are becoming more formed. Remains weak, participating with therapy. Vitals/I&O/Wt Last Vital Signs Temp 98.7 F 04/12/20 08:00 Pulse 72 04/12/20 08:00 Resp 20 H 04/12/20 08:00 BP 136/88 04/12/20 08:00 Pulse Ox 97 04/12/20 08:00 04/11/20 04/12/20 04/12/20 22:59 06:59 14:59 Intake Total 120 / 370 240 / 240 Output Total 300 / 300 360 / 360 Balance 120 / 370 -300 / 70 -120 / -120 Physical Exam Narrative: EXAM NARRATIVE: Constitutional: Awake, comfortable HEENT: Wet mucosa, no jvp, non icteric Lungs: Bilaterally clear without discernible wheeze, rales in all lung zones CVS: S1 S2, no murmurs Abdo: Soft, BS ok Ext 4: Minimal edema, peripheral perfusion with no cyanosis Neurological: Grossly non-focal Data : 04/12/20 04:59 04/12/20 04:59 Micro: Microbiology 04/08/20 22:44 Gram Stain - Final Peritoneal Fluid Body Fluid Culture - Final A&P Additional A&P Information 1. ESRD Seen and examined on dialysis today. Continue Wednesday schedule. I will review on bedside on Wednesday if he remains in-house. Dose medication for GFR less than 15 on dialysis On HD in house with on going PD training following DC 2. Chronic ESRD issues should be further addressed as standard outpatient management in her dialysis clinic including anemia management, hypophosphatemia, secondary hyperparathyroidism etc. 3. C-Diff on Vanco with clinical improvement 4. Hemodynamics remain stable 5. DC planning to SNF noted Meet Henley MD Nephrology [phone] Patient seen and examined via telemedicine, with the assistance of the bedside RN > 25 min spent in evaluation and mgmt of patient Attestations Medical Necessity Statement*: Eval for ESRD mgmt Coding Level of Care Code Acute Access Nurse for Chg Fwd
[2020-04-12 16:52] LABS: Glucose Point of Care 226 mg/dL (70-110)
--- NOTE | 2020-04-12 21:15 | PM.PN ---
Subjective Subjective: Interval history: Today he states he is doing all right. Denies trouble breathing. No chest pain or pressure. Diarrhea showing improvement. Vitals/I&O/Wt Last Vital Signs Temp 97.8 F 04/12/20 20:00 Pulse 99 04/12/20 20:00 Resp 21 H 04/12/20 20:00 BP 124/65 04/12/20 20:00 Pulse Ox 100 04/12/20 20:00 04/12/20 04/12/20 04/12/20 06:59 14:59 22:59 Intake Total 580 / 580 240 / 820 Output Total 300 / 300 360 / 360 Balance -300 / 70 220 / 220 240 / 460 Physical Exam Const: COMMON NORMALS: no acute distress and patient oriented x3 GENERAL APPEARANCE: cooperative NUTRITIONAL APPEARANCE: overweight ORIENTATION/CONSCIOUSNESS: Yes awake OTHER: Sitting up to work with therapy. HENMT: COMMON NORMALS: oropharynx normal Neck/C-Spine: COMMON NORMALS: no JVD Resp: COMMON NORMALS: normal respiratory effort and clear to auscultation bilaterally EFFORT & INSPECTION: Yes tachypneic AUSCULTATION: clear to auscultation bilaterally Cardio: COMMON NORMALS: no JVD, regular rhythm, S1 normal heart sound present, S2 normal heart sound present and No murmurs present (Cardio) RHYTHM: regular rhythm HEART SOUNDS: S1 normal heart sound present and S2 normal heart sound present GI: COMMON NORMALS: Normal to inspection, nondistended, normoactive bowel sounds present, Soft to palpation and non-tender PALPATION: Yes Soft to palpation Extremity: COMMON NORMALS: no joint enlargement and no pedal edema Neuro: COMMON NORMALS: patient oriented x3 and moves all extremities Skin: COMMON NORMALS: no rashes or lesions noted GENERAL SKIN EXAM: no rashes or lesions noted Data : 04/12/20 04:59 04/12/20 04:59 Micro: Microbiology 04/08/20 22:44 Gram Stain - Final Peritoneal Fluid Body Fluid Culture - Final A&P Assessment and plan (1) C. difficile colitis: Diarrhea improving. Continue oral vancomycin for possible severe C. difficile colitis. Still with diarrhea. At home lives with his elderly mother would not be able to care for him adequately. Status: Acute (2) Declining functional status: Yesterday would have had another fall if [facility] did not catch him. Continues to work with PT. Case management working on setting up rehabilitation at SNF. Status: Acute (3) Metabolic acidosis: Continue combination HD and PD per nephrology. Additional discussion took place regarding reevaluation of candidacy of ongoing PD going forward. Low suspicion for bacterial peritonitis. Status: Acute (4) Hyperkalemia: Treated. Normalized. Status: Acute (5) Leukocytosis: IV antibiotics discontinued. Treatment with oral vancomycin for C. difficile infection. Status: Acute (6) ESRD (end stage renal disease): Continue combination HD and PD on discharge for additional PD training, reassessment is needed by his city distribution clerk to help determine best choice of modality. Status: Acute Additional A&P Information Chronic limb length discrepancy. L leg shorter. Walks w cane at home. Risk of falls. Pending follow-up with orthopedics. COPD: Not in exacerbation DM2: Continue insulin HTN Diastolic CHF ALEC Hypothyroidism Other chronic conditions noted. Attestations Medical Necessity Statement*: Continue admission for assessment management of improving C. difficile colitis, possible severe, disposition arrangements, continue rehabilitation with ongoing risk of falling, inadequate social support and complicated medical condition. Coding Level of Care Code Acute Technical Engineer for Bassamg Fwd Diagnoses C. difficile colitis A04.72 Declining functional status R53.81 Metabolic acidosis E87.2 Hyperkalemia E87.5 Leukocytosis D72.829 ESRD (end stage renal disease) N18.6
[2020-04-12 21:22] LABS: Glucose Point of Care 166 mg/dL (70-110)
[2020-04-13] VITALS (10 sets, daily range): BP systolic 130–166; BP diastolic 57–81; PULSE 61–93; RESP 16–19; TEMP 36.4–37; O2SAT 98–100
[2020-04-13 06:50] LABS: Glucose Point of Care 143 mg/dL (70-110)
[2020-04-13 06:58] LABS: Basophils # 0.1 10^3/uL (0.0-0.1); Basophils % 0.4 %; Eosinophils # 0.2 10^3/uL (0.0-0.8); Eosinophils % 1.6 %; Hematocrit 30.6 % (42.0-52.0); Hemoglobin 9.5 g/dL (11.7-16.6); Lymphocytes # 1.4 10^3/uL (0.8-4.8); Lymphocytes % 12.1 %; Mean Corpuscular Hemoglobin 36.1 pg (28.0-34.0); Mean Corpuscular Volume 116.3 fL (80-94); Mean Platelet Volume 9.7 fL (7.4-10.4); Monocytes # 1.4 10^3/uL (0.2-0.9); Monocytes % 11.8 %; Neutrophils # 8.71 10^3/uL (1.8-7.7); Neutrophils % 73.1 %; Nucleated Red Blood Cells % 0 %; Platelet Count 259 10^3/cmm (130-400); Red Blood Count 2.63 10^6/uL (4.1-5.3); Red Cell Distribution Width 16.3 % (12.1-15.1); White Blood Count 11.9 10^3/uL (4.0-10.0)
[2020-04-13 07:18] LABS: Alanine Aminotransferase 27 U/L (0-41); Albumin Level 2.8 g/dL (3.5-5.2); Alkaline Phosphatase 73 IU/L (40-130); Anion Gap 10.1 (5-19); Aspartate Amino Transferase 20 U/L (0-40); Blood Urea Nitrogen 20 mg/dL (8-23); Carbon Dioxide 29 mmol/L (22-29); Chloride 103 mmol/L (98-107); Globulin 2.6 g/dL (1.3-4.6); Glomerular Filtration Rate 28.8 mL/min (90-130); Glucose 136 mg/dL (65-115); Magnesium 1.7 mg/dL (1.7-2.3); Osmolality Calculated 291 mOsm/kg (285-295); Phosphorus 1.5 mg/dL (2.5-4.5); Potassium 4.1 mmol/L (3.5-5.1); Sodium 138 mmol/L (136-145); Total Bilirubin 0.4 mg/dL (0.15-1.2); Total Protein 5.4 g/dL (6.6-8.7)
[2020-04-13] MEDS: metoprolol tartrate 25 mg Tablet 12.5 MG PO ×2 (08:52→17:28)
[2020-04-13] MEDS: b-complex-vitamin c Tablet 1 EACH PO (08:54)
[2020-04-13] MEDS: pantoprazole DR 40 mg Tablet PO ×2 (08:54→17:28)
[2020-04-13] MEDS: levothyroxine 88 mcg Tablet PO (08:54)
[2020-04-13 10:58] LABS: Glucose Point of Care 193 mg/dL (70-110)
[2020-04-13 16:59] LABS: Glucose Point of Care 187 mg/dL (70-110)
--- NOTE | 2020-04-13 20:26 | P.PN_ITS ---
Subjective Subjective: Interval history: Diarrhea still on and off, slightly worse currently. Otherwise denies new symptoms. Denies abdominal pain. No trouble breathing with nasal cannula. Vitals/I&O/Wt Last Vital Signs Temp 98.3 F 04/13/20 19:37 Pulse 61 04/13/20 19:37 Resp 17 04/13/20 19:37 BP 166/70 04/13/20 19:37 Pulse Ox 100 04/13/20 19:37 04/13/20 04/13/20 04/13/20 06:59 14:59 22:59 Intake Total 160 / 980 240 / 240 240 / 480 Output Total 520 / 880 Balance -360 / 100 240 / 240 240 / 480 Physical Exam Const: COMMON NORMALS: no acute distress and patient oriented x3 GENERAL APPEARANCE: cooperative NUTRITIONAL APPEARANCE: overweight ORIENTATION/CONSCIOUSNESS: Yes awake OTHER: Sitting up HENMT: COMMON NORMALS: oropharynx normal Neck/C-Spine: COMMON NORMALS: no JVD Resp: COMMON NORMALS: normal respiratory effort and clear to auscultation bilaterally EFFORT & INSPECTION: Yes tachypneic AUSCULTATION: clear to auscultation bilaterally Cardio: COMMON NORMALS: no JVD, regular rhythm, S1 normal heart sound present, S2 normal heart sound present and No murmurs present (Cardio) RHYTHM: regular rhythm HEART SOUNDS: S1 normal heart sound present and S2 normal heart sound present GI: COMMON NORMALS: Normal to inspection, nondistended, normoactive bowel sounds present, Soft to palpation and non-tender PALPATION: Yes Soft to palpation Extremity: COMMON NORMALS: no joint enlargement and no pedal edema Neuro: COMMON NORMALS: patient oriented x3 and moves all extremities Skin: COMMON NORMALS: no rashes or lesions noted GENERAL SKIN EXAM: no rashes or lesions noted OTHER: Data : 04/13/20 06:26 04/13/20 06:26 Micro: Microbiology 04/08/20 08:35 Blood Culture - Final Blood NO GROWTH AFTER 5 DAYS 04/08/20 10:15 Blood Culture - Final Blood NO GROWTH AFTER 5 DAYS A&P Assessment and plan (1) C. difficile colitis: Diarrhea somewhat worse today, but overall better than previously. Leukocytosis is little bit worse today 11.9. Continue p.o. vancomycin course. Status: Acute (2) Declining functional status: Unsafe to discharge home due to daily gait, falls, at home living only with his elderly mother. Multiple medical conditions requiring care beyond what is able to be provided at home and at this time still not able to take care of by himself. Continue PT, OT. Case management working on setting up rehabilitation at SNF. Status: Acute (3) Metabolic acidosis: Continue combination HD and PD per nephrology. Additional discussion took place regarding reevaluation of candidacy of ongoing PD going forward. Low suspicion for bacterial peritonitis. Status: Acute (4) Hyperkalemia: Treated. Normalized. Status: Acute (5) Leukocytosis: IV antibiotics discontinued. Treatment with oral vancomycin for C. difficile infection. Status: Acute (6) ESRD (end stage renal disease): Continue combination HD and PD on discharge for additional PD training, reassessment is needed by his concrete journeyman to help determine best choice of modality. Status: Acute Additional A&P Information Chronic limb length discrepancy. L leg shorter. Walks w cane at home. Risk of falls. Pending follow-up with orthopedics. COPD: Not in exacerbation DM2: Continue insulin HTN Diastolic CHF ALEC Hypothyroidism Other chronic conditions noted. Attestations Medical Necessity Statement*: Continue admission for assessment and management of C. difficile colitis, ESRD requiring dialysis, with unsafe discharge home at this time due to lack of social support, multiple medical comorbidities, falls. Coding Level of Care Code Acute Footwear Sales Coordinator for Brynn Castro Diagnoses C. difficile colitis A04.72 Declining functional status R53.81 Metabolic acidosis E87.2 Hyperkalemia E87.5 Leukocytosis D72.829 ESRD (end stage renal disease) N18.6
[2020-04-13 20:57] LABS: Glucose Point of Care 152 mg/dL (70-110)
[2020-04-14] VITALS (10 sets, daily range): BP systolic 146–166; BP diastolic 68–77; PULSE 86–92; RESP 15–18; TEMP 36.5–36.9; O2SAT 98–100
[2020-04-14 05:58] LABS: Basophils # 0.1 10^3/uL (0.0-0.1); Basophils % 0.4 %; Eosinophils # 0.2 10^3/uL (0.0-0.8); Eosinophils % 1.6 %; Hematocrit 29.2 % (42.0-52.0); Lymphocytes # 1.3 10^3/uL (0.8-4.8); Lymphocytes % 9.4 %; Mean Corpuscular HGB Conc 30.8 g/dL (30.0-36.0); Mean Corpuscular Hemoglobin 35.2 pg (28.0-34.0); Mean Corpuscular Volume 114.1 fL (80-94); Mean Platelet Volume 9.8 fL (7.4-10.4); Monocytes # 1.6 10^3/uL (0.2-0.9); Neutrophils # 10.14 10^3/uL (1.8-7.7); Neutrophils % 75.3 %; Nucleated Red Blood Cells % 0 %; Platelet Count 280 10^3/cmm (130-400); Red Blood Count 2.56 10^6/uL (4.1-5.3); Red Cell Distribution Width 15.9 % (12.1-15.1); White Blood Count 13.5 10^3/uL (4.0-10.0)
[2020-04-14 06:16] LABS: Alanine Aminotransferase 34 U/L (0-41); Albumin Level 2.9 g/dL (3.5-5.2); Alkaline Phosphatase 84 IU/L (40-130); Aspartate Amino Transferase 24 U/L (0-40); Blood Urea Nitrogen 29 mg/dL (8-23); Calcium 7.7 mg/dL (8.5-10.5); Carbon Dioxide 27 mmol/L (22-29); Chloride 103 mmol/L (98-107); Globulin 2.5 g/dL (1.3-4.6); Glucose 135 mg/dL (65-115); Magnesium 1.7 mg/dL (1.7-2.3); Osmolality Calculated 294 mOsm/kg (285-295); Phosphorus 1.4 mg/dL (2.5-4.5); Sodium 138 mmol/L (136-145); Total Bilirubin 0.4 mg/dL (0.15-1.2); Total Protein 5.4 g/dL (6.6-8.7)
[2020-04-14 06:21] LABS: Anion Gap 12.2 (5-19); Potassium 4.2 mmol/L (3.5-5.1)
[2020-04-14 06:40] LABS: Glucose Point of Care 146 mg/dL (70-110)
[2020-04-14] MEDS: metoprolol tartrate 25 mg Tablet 12.5 MG PO ×2 (10:07→17:09)
[2020-04-14] MEDS: levothyroxine 88 mcg Tablet PO (10:08)
[2020-04-14] MEDS: pantoprazole DR 40 mg Tablet PO ×2 (10:09→17:10)
[2020-04-14] MEDS: b-complex-vitamin c Tablet 1 EACH PO (10:09)
--- NOTE | 2020-04-14 10:57 | XRR_ITS ---
PROCEDURE INFORMATION: Exam: XR Chest, 1 View Exam date and time: 04/14/2020 12:14 PM Age: 64 years old Clinical indication: Shortness of breath; Additional info: Rising leukocytosis TECHNIQUE: Imaging protocol: XR of the chest Views: 1 view. COMPARISON: CR XR chest 1V portable [id number] 04/08/2020 7:50 AM FINDINGS: Tubes, catheters and devices: A right central line extending into the right atrium Lungs: Unremarkable. No consolidation. Pleural spaces: Unremarkable. No pleural effusion. No pneumothorax. Heart/Mediastinum: Unremarkable. No cardiomegaly. Bones/joints: Unremarkable. Other findings: . XR/XR chest 1V portable [id number] IMPRESSION: 1. No acute findings. 2. Right central line extends to the right atrium
[2020-04-14 11:03] LABS: Glucose Point of Care 247 mg/dL (70-110)
[2020-04-14 16:03] LABS: Add Urine Microscopic? YES; Bilirubin Urine 1+ (Negative); Blood Urine Neg (Negative); Glucose Urine UA 1+ (Normal); Ketones Urine Negative (Negative); Leukocyte Esterase Urine Negative (Negative); Nitrate Urine Negative (Negative); Protein Urine 3+ (Negative); Urine Appearance Clear (CLEAR); Urine Color Dark Yellow (Yellow); Urobilinogen Urine Norm (Negative); pH Urine 5 (5-7)
[2020-04-14 16:04] LABS: Add Urine Culture? No; Bacteria Urine 2+ /hpf
[2020-04-14 17:01] LABS: Glucose Point of Care 137 mg/dL (70-110)
--- NOTE | 2020-04-14 19:28 | P.PN_ITS ---
Subjective Subjective: Interval history: He is up sitting at the edge of the bed. He states that his diarrhea is improving. He denies any cough or shortness of breath. Denies any chest pain or pressure. Denies abdominal pain. Discussed with him regarding rising leukocytosis. He states that he is overall gradually improving. Vitals/I&O/Wt Last Vital Signs Temp 97.7 F 04/14/20 15:34 Pulse 90 04/14/20 15:34 Resp 18 04/14/20 15:34 BP 152/77 04/14/20 15:34 Pulse Ox 99 04/14/20 15:34 04/14/20 04/14/20 04/14/20 06:59 14:59 22:59 Intake Total 240 / 240 Output Total 125 / 125 100 / 100 Balance -125 / 475 240 / 240 -100 / 140 Physical Exam Const: COMMON NORMALS: no acute distress and patient oriented x3 GENERAL APPEARANCE: cooperative NUTRITIONAL APPEARANCE: overweight ORIENTATION/CONSCIOUSNESS: Yes awake OTHER: Sitting up HENMT: COMMON NORMALS: oropharynx normal Neck/C-Spine: COMMON NORMALS: no JVD Resp: COMMON NORMALS: normal respiratory effort and clear to auscultation bilaterally EFFORT & INSPECTION: Yes tachypneic AUSCULTATION: clear to auscultation bilaterally Cardio: COMMON NORMALS: no JVD, regular rhythm, S1 normal heart sound present, S2 normal heart sound present and No murmurs present (Cardio) RHYTHM: regular rhythm HEART SOUNDS: S1 normal heart sound present and S2 normal heart sound present GI: COMMON NORMALS: Normal to inspection, nondistended, normoactive bowel sounds present, Soft to palpation and non-tender PALPATION: Yes Soft to palpation Extremity: COMMON NORMALS: no joint enlargement and no pedal edema Neuro: COMMON NORMALS: patient oriented x3 and moves all extremities Skin: COMMON NORMALS: no rashes or lesions noted GENERAL SKIN EXAM: no rashes or lesions noted OTHER: Data : 04/14/20 05:38 04/14/20 05:38 A&P Assessment and plan (1) Leukocytosis: Unclear reason for rising leukocytosis. Diarrhea appears to be improving. Chest x-ray repeated, does not appear to show pneumonia. UA does show 5-10 WBC, although he is not really having urinary symptoms. Will request urine culture. Continue oral vancomycin for C. difficile. Recheck leukocyte count tomorrow. Off IV antibiotics. Status: Acute (2) C. difficile colitis: Diarrhea improving. Continue oral vancomycin. Status: Acute (3) Declining functional status: Unsafe to discharge home due to unsteady gait, falls, at home living only with his elderly mother. Multiple medical conditions requiring care beyond what is able to be provided at home and at this time still not able to take care of by himself. Continue PT, OT. Case management working on setting up rehabilitation at SNF. Status: Acute (4) Metabolic acidosis: Continue combination HD and PD per nephrology. Additional discussion took place regarding reevaluation of candidacy of ongoing PD going forward. Low suspicion for bacterial peritonitis. Status: Acute (5) Hyperkalemia: Treated. Normalized. Status: Acute (6) ESRD (end stage renal disease): Continue combination HD and PD on discharge for additional PD training, reassessment is needed by his test lab technician to help determine best choice of modality. Status: Acute Additional A&P Information Chronic limb length discrepancy. L leg shorter. Walks w cane at home. Risk of falls. Pending follow-up with orthopedics. COPD: Not in exacerbation DM2: Continue insulin HTN Diastolic CHF ALEC Hypothyroidism Other chronic conditions noted. Attestations Medical Necessity Statement*: Continue admission for additional assessment of rising leukocytosis, continue treatment of C. difficile colitis, continue mobilization, work on safety awareness, gait, strengthening, with arrangements underway for SNF placement. Coding Level of Care Code Acute Application Security Engineer for Brynn Castro Diagnoses Leukocytosis D72.829 C. difficile colitis A04.72 Declining functional status R53.81 Metabolic acidosis E87.2 Hyperkalemia E87.5 ESRD (end stage renal disease) N18.6
[2020-04-14 20:52] LABS: Glucose Point of Care 184 mg/dL (70-110)
[2020-04-15] VITALS (9 sets, daily range): BP systolic 142–164; BP diastolic 69–88; PULSE 81–97; RESP 16–18; TEMP 36.7–36.8; O2SAT 96–100
[2020-04-15] MEDS: acetaminophen 325 mg Tablet PO ×2 (00:12→18:09)
[2020-04-15 06:27] LABS: Glucose Point of Care 131 mg/dL (70-110)
[2020-04-15 06:30] LABS: Basophils # 0.1 10^3/uL (0.0-0.1); Basophils % 0.4 %; Eosinophils # 0.2 10^3/uL (0.0-0.8); Eosinophils % 1.5 %; Hemoglobin 8.9 g/dL (11.7-16.6); Lymphocytes # 1.5 10^3/uL (0.8-4.8); Lymphocytes % 11.4 %; Mean Corpuscular HGB Conc 30.7 g/dL (30.0-36.0); Mean Corpuscular Hemoglobin 35.2 pg (28.0-34.0); Mean Corpuscular Volume 114.6 fL (80-94); Mean Platelet Volume 9.8 fL (7.4-10.4); Monocytes # 1.8 10^3/uL (0.2-0.9); Monocytes % 13.9 %; Neutrophils # 9.07 10^3/uL (1.8-7.7); Neutrophils % 71.5 %; Nucleated Red Blood Cells % 0 %; Platelet Count 327 10^3/cmm (130-400); Red Blood Count 2.53 10^6/uL (4.1-5.3); White Blood Count 12.7 10^3/uL (4.0-10.0)
[2020-04-15 06:58] LABS: Anion Gap 13.2 (5-19); Blood Urea Nitrogen 35 mg/dL (8-23); Calcium 7.6 mg/dL (8.5-10.5); Carbon Dioxide 26 mmol/L (22-29); Chloride 103 mmol/L (98-107); Glomerular Filtration Rate 21.2 mL/min (90-130); Glucose 132 mg/dL (65-115); Osmolality Calculated 296 mOsm/kg (285-295); Potassium 4.2 mmol/L (3.5-5.1); Sodium 138 mmol/L (136-145)
--- NOTE | 2020-04-15 08:36 | PC.NURSE ---
morning medications being held until after dialysis.
--- NOTE | 2020-04-15 10:14 | PC.NURSE ---
Dialysis- patient left for dialysis at 1000.
[2020-04-15 11:27] LABS: Glucose Point of Care 184 mg/dL (70-110)
[2020-04-15 14:37] LABS: Glucose Point of Care 159 mg/dL (70-110)
[2020-04-15] MEDS: metoprolol tartrate 25 mg Tablet 12.5 MG PO ×2 (15:00→18:02)
[2020-04-15] MEDS: levothyroxine 88 mcg Tablet PO (15:00)
[2020-04-15] MEDS: b-complex-vitamin c Tablet 1 EACH PO (15:00)
--- NOTE | 2020-04-15 15:10 | PM.PN ---
Subjective Subjective: Interval history: Mr. Reynoso is seen and examined on dialysis today. He is tolerating this therapy well, dialysis parameters and hemodynamics reviewed. Access is working well. No uremic symptoms. He is still having frequent bowel movements, however, they are becoming more formed. Remains weak, participating with therapy. Vitals/I&O/Wt Last Vital Signs Temp 98.2 F 04/15/20 07:11 Pulse 81 04/15/20 11:27 Resp 18 04/15/20 11:27 BP 164/88 04/15/20 11:27 Pulse Ox 96 04/15/20 11:27 04/15/20 04/15/20 04/15/20 06:59 14:59 22:59 Intake Total 30 / 350 120 / 120 Output Total 75 / 175 Balance -45 / 175 120 / 120 Physical Exam Narrative: EXAM NARRATIVE: Constitutional: Awake, comfortable HEENT: Wet mucosa, no jvp, non icteric Lungs: Bilaterally clear without discernible wheeze, rales in all lung zones CVS: S1 S2, no murmurs Abdo: Soft, BS ok Ext 4: Minimal edema, peripheral perfusion with no cyanosis Neurological: Grossly non-focal Data : 04/15/20 05:35 04/15/20 05:35 A&P Additional A&P Information 1. ESRD Seen and examined on dialysis today. Continue Wednesday schedule. Dose medication for GFR less than 15 on dialysis On HD in house with on going PD training following DC 2. Chronic ESRD issues should be further addressed as standard outpatient management in her dialysis clinic including anemia management, hyperphosphatemia, secondary hyperparathyroidism etc. 3. C-Diff on Vanco with clinical improvement 4. Hemodynamics remain stable 5. DC planning to SNF noted Meet Henley MD Nephrology [phone] Patient seen and examined via telemedicine, with the assistance of the bedside RN > 25 min spent in evaluation and mgmt of patient Attestations Medical Necessity Statement*: eval for esrd Coding Level of Care Code Acute Senior Hardware Design Engineer for Chg Matthew
--- NOTE | 2020-04-15 16:21 | P.PN_ITS ---
Subjective Subjective: Interval history: Patient just returned from dialysis and is about to eat. He does not appreciate my interruption. When asked about going to care home facility he said I have to don't I? Medications: Reviewed: Yes Vitals/I&O/Wt Last Vital Signs Temp 98.0 F 04/15/20 15:46 Pulse 97 04/15/20 15:46 Resp 17 04/15/20 15:46 BP 143/69 04/15/20 15:46 Pulse Ox 100 04/15/20 15:46 04/15/20 04/15/20 04/15/20 06:59 14:59 22:59 Intake Total 30 / 350 240 / 240 Output Total 75 / 175 Balance -45 / 175 240 / 240 Physical Exam Const: COMMON NORMALS: no acute distress, average body habitus and patient oriented x3 Neck/C-Spine: COMMON NORMALS: no JVD Resp: COMMON NORMALS: normal respiratory effort and clear to auscultation bilaterally AUSCULTATION: clear to auscultation bilaterally Cardio: COMMON NORMALS: no JVD, regular rate, regular rhythm and Peripheral pulses 2+ throughout RATE: regular rate RHYTHM: regular rhythm PERIPHERAL PULSES: Peripheral pulses 2+ throughout GI: COMMON NORMALS: Soft to palpation and non-tender PALPATION: Yes Soft to palpation Extremity: COMMON NORMALS: no clubbing, cyanosis or edema Neuro: COMMON NORMALS: patient oriented x3 Data : 04/15/20 05:35 04/15/20 05:35 A&P Assessment and plan (1) Declining functional status: Patient's plan is to be discharged to care home facility. Awaiting acceptance. Discussed with case management today. Status: Acute (2) C. difficile colitis: No documented bowel movements listed today. Patient describes 1 bowel movement that is returning to normal. Status: Acute (3) Leukocytosis: Patient's WBC count is remaining elevated between 11 and 13. It may take more time for this to normalize. Status: Acute (4) Generalized weakness: As above patient will be discharged to a care home facility for rehabilitation. Status: Acute (5) Hypertension: Continue current home meds will follow. Status: Acute (6) ESRD (end stage renal disease): Patient is being followed by nephrology. He is currently on hemodialysis Wednesday. With plans to convert to peritoneal dialysis. Status: Acute (7) DNR (do not resuscitate): Currently in the hospital we have him listed as a full code but I found this diagnosis and his problem list. I will discuss with patient tomorrow. Status: Acute Attestations Medical Necessity Statement*: Awaiting care home facility placement patient safety. Coding Level of Care Code Acute Communication Studies Professor for Bassam Fwd Exam Detailed Diagnoses Declining functional status R53.81 C. difficile colitis A04.72 Leukocytosis D72.829 Generalized weakness R53.1 Hypertension I10 ESRD (end stage renal disease) N18.6 DNR (do not resuscitate) Z66
[2020-04-15 17:21] LABS: Glucose Point of Care 165 mg/dL (70-110)
[2020-04-15] MEDS: pantoprazole DR 40 mg Tablet PO (18:02)
[2020-04-15 21:29] LABS: Glucose Point of Care 182 mg/dL (70-110)
[2020-04-16] VITALS (9 sets, daily range): BP systolic 116–166; BP diastolic 50–79; PULSE 88–99; RESP 16–20; TEMP 36.4–37; O2SAT 98–100
[2020-04-16 06:52] LABS: Glucose Point of Care 143 mg/dL (70-110)
[2020-04-16] MEDS: b-complex-vitamin c Tablet 1 EACH PO (08:51)
[2020-04-16] MEDS: levothyroxine 88 mcg Tablet PO (08:51)
[2020-04-16] MEDS: metoprolol tartrate 25 mg Tablet 12.5 MG PO ×2 (08:51→18:27)
[2020-04-16] MEDS: pantoprazole DR 40 mg Tablet PO ×2 (08:51→18:28)
[2020-04-16 10:37] LABS: Basophils # 0.1 10^3/uL (0.0-0.1); Basophils % 0.5 %; Eosinophils # 0.1 10^3/uL (0.0-0.8); Eosinophils % 1.1 %; Hematocrit 30.7 % (42.0-52.0); Hemoglobin 9.5 g/dL (11.7-16.6); Lymphocytes # 1.4 10^3/uL (0.8-4.8); Lymphocytes % 10.5 %; Mean Corpuscular HGB Conc 30.9 g/dL (30.0-36.0); Mean Corpuscular Hemoglobin 34.8 pg (28.0-34.0); Mean Corpuscular Volume 112.5 fL (80-94); Mean Platelet Volume 9.9 fL (7.4-10.4); Monocytes # 1.6 10^3/uL (0.2-0.9); Monocytes % 12.3 %; Neutrophils # 9.52 10^3/uL (1.8-7.7); Neutrophils % 74.3 %; Nucleated Red Blood Cells % 0 %; Platelet Count 392 10^3/cmm (130-400); Red Blood Count 2.73 10^6/uL (4.1-5.3); Red Cell Distribution Width 15.6 % (12.1-15.1); White Blood Count 12.8 10^3/uL (4.0-10.0)
[2020-04-16 11:01] LABS: Alanine Aminotransferase 44 U/L (0-41); Albumin Level 3.3 g/dL (3.5-5.2); Alkaline Phosphatase 165 IU/L (40-130); Anion Gap 13.4 (5-19); Aspartate Amino Transferase 29 U/L (0-40); Blood Urea Nitrogen 23 mg/dL (8-23); Calcium 8.3 mg/dL (8.5-10.5); Carbon Dioxide 27 mmol/L (22-29); Chloride 102 mmol/L (98-107); Glomerular Filtration Rate 26.1 mL/min (90-130); Glucose 199 mg/dL (65-115); Osmolality Calculated 295 mOsm/kg (285-295); Potassium 4.4 mmol/L (3.5-5.1); Sodium 138 mmol/L (136-145); Total Bilirubin 0.4 mg/dL (0.15-1.2); Total Protein 6.3 g/dL (6.6-8.7)
[2020-04-16 11:51] LABS: Glucose Point of Care 163 mg/dL (70-110)
--- NOTE | 2020-04-16 13:48 | PM.PN ---
Subjective Subjective: Interval history: Doing well, no new issues, pending outpatient placement. No uremic symptoms. He is still having frequent bowel movements, however, they are becoming more formed. Remains weak, participating with therapy. Vitals/I&O/Wt Last Vital Signs Temp 97.5 F L 04/16/20 11:24 Pulse 95 04/16/20 11:24 Resp 18 04/16/20 11:24 BP 149/71 04/16/20 11:24 Pulse Ox 99 04/16/20 11:24 04/15/20 04/16/20 04/16/20 22:59 06:59 14:59 Intake Total 320 / 560 600 / 600 Output Total 100 / 100 100 / 200 Balance 220 / 460 -100 / 360 600 / 600 Physical Exam Narrative: EXAM NARRATIVE: Constitutional: Awake, comfortable HEENT: Wet mucosa, no jvp, non icteric Lungs: Bilaterally clear without discernible wheeze, rales in all lung zones CVS: S1 S2, no murmurs Abdo: Soft, BS ok Ext 4: Minimal edema, peripheral perfusion with no cyanosis Neurological: Grossly non-focal Data : 04/16/20 09:49 04/16/20 09:49 Micro: Microbiology 04/14/20 00:10 Urine Culture - Preliminary Urine,Clean Catch A&P Additional A&P Information 1. ESRD Dialysis planned for tomorrow Continue Wednesday schedule. Dose medication for GFR less than 15 on dialysis On HD in house with on going PD training following DC 2. Chronic ESRD issues should be further addressed as standard outpatient management in her dialysis clinic including anemia management, hyperphosphatemia, secondary hyperparathyroidism etc. 3. C-Diff on Vanco with clinical improvement 4. Hemodynamics remain stable 5. DC planning to SNF noted; awaiting bed Meet Henley MD Nephrology [phone] Patient seen and examined via telemedicine, with the assistance of the bedside RN > 25 min spent in evaluation and mgmt of patient Attestations Medical Necessity Statement*: Eval for ESRD Coding Level of Care Code Acute Server Support Technician for Bassamg Matthew
[2020-04-16 16:40] LABS: Glucose Point of Care 170 mg/dL (70-110)
--- NOTE | 2020-04-16 20:03 | PM.PN ---
Subjective Subjective: Interval history: He ate well today. Denies chest pain or shortness of breath or nausea. Medications: Reviewed: Yes Medication Review Details: Current Medications Acetaminophen (Acetaminophen 325 Mg Tablet) 325 - 650 mg PO Q4H PRN PRN Reason: MILD PAIN OR INCREASE TEMP Last Admin: 04/09/20 12:04 Dose: 650 mg Documented by: Dextrose (Dextrose 50% Syringe 50 Ml) 25 ml IVP ONCE PRN; Protocol PRN Reason: hypoglycemia protocol Dextrose (Dextrose 50% Syringe 50 Ml) 50 ml IVP PRN PRN; Protocol PRN Reason: hypoglycemia protocol Last Admin: 04/08/20 20:27 Dose: 50 ml Documented by: Glucagon (Glucagon 1 Mg/Ml Inj 1 Ml) 1 mg IM ONCE PRN; Protocol PRN Reason: Adult Acute Hypoglycemia Prot. Dextrose (D5w) 500 mls @ 100 mls/hr IV ONCE PRN; Protocol PRN Reason: Adult Acute Hypoglycemia Prot Insulin Aspart (Insulin Aspart 100 Unit/1 Ml) 0 unit SUBCUT WM&BEDTIME [facility]; Protocol Last Admin: 04/10/20 22:20 Dose: 2 unit Documented by: Levothyroxine Sodium (Levothyroxine 88 Mcg Tablet) 88 mcg PO DAILY [facility] Last Admin: 04/10/20 09:08 Dose: 88 mcg Documented by: Metoprolol Tartrate (Metoprolol Tartrate 25 Mg Tablet) 12.5 mg PO BID [facility] Last Admin: 04/10/20 17:54 Dose: 12.5 mg Documented by: Multivitamins (S-Weefxqd-Nlaclfa C Tablet) 1 each PO DAILY [facility] Last Admin: 04/10/20 09:08 Dose: 1 each Documented by: Ondansetron HCl (Ondansetron 2 Mg/Ml Sdv 2 Ml) 4 mg IVP Q6H PRN PRN Reason: NAUSEA AND VOMITING Pantoprazole Sodium (Pantoprazole Dr 40 Mg Tablet) 40 mg PO BID [facility] Last Admin: 04/10/20 17:55 Dose: 40 mg Documented by: Fluticasone/Salmeterol (Fluticasone-Salmeterol 500-50 Diskus) 1 puff INHALATION BID.RESPIRATORY [facility] Last Admin: 04/11/20 07:35 Dose: 1 puff Documented by: Vancomycin HCl (Vancomycin 1,000 Mg Oral Holly (Btl)) 125 mg PO QID [facility] Last Admin: 04/10/20 22:18 Dose: 125 mg Documented by: Vitals/I&O/Wt Last Vital Signs Temp 97.7 F 04/16/20 15:38 Pulse 88 04/16/20 15:38 Resp 16 04/16/20 15:38 BP 156/79 04/16/20 15:38 Pulse Ox 98 04/16/20 15:38 04/16/20 04/16/20 04/16/20 06:59 14:59 22:59 Intake Total 600 / 600 Output Total 100 / 200 300 / 300 Balance -100 / 360 600 / 600 -300 / 300 Physical Exam Const: COMMON NORMALS: no acute distress, average body habitus and patient oriented x3 Neck/C-Spine: COMMON NORMALS: no JVD Resp: COMMON NORMALS: normal respiratory effort and clear to auscultation bilaterally AUSCULTATION: clear to auscultation bilaterally Cardio: COMMON NORMALS: no JVD, regular rate, regular rhythm and Peripheral pulses 2+ throughout RATE: regular rate RHYTHM: regular rhythm PERIPHERAL PULSES: Peripheral pulses 2+ throughout GI: COMMON NORMALS: Soft to palpation and non-tender PALPATION: Yes Soft to palpation Extremity: GENERAL: Yes edema (Bilateral lower extremities with discoloration consistent with venous insuf) Neuro: COMMON NORMALS: patient oriented x3 Data : 04/16/20 09:49 04/16/20 09:49 Micro: Microbiology 04/14/20 00:10 Urine Culture - Preliminary Urine,Clean Catch A&P Assessment and plan (1) Declining functional status: Patient's [facility] Awaiting acceptance. Status: Acute (2) C. difficile colitis: No documented bowel movements listed today. Patient describes 2 bowel movements that are formed. No longer needs isolation. Status: Acute (3) Leukocytosis: Patient's WBC count is remaining elevated between 11 and 13. Status: Acute (4) Generalized weakness: As above patient will be [facility] to a [facility] facility for [facility]. Status: Acute (5) Hypertension: Continue current home meds will follow. Status: Acute (6) ESRD (end stage renal disease): Patient is being followed by nephrology. He is currently on hemodialysis Wednesday. With plans to convert to peritoneal dialysis. Status: Acute (7) DNR (do not resuscitate): will ask RN to confirm. Status: Acute Additional A&P Information Chronic limb length discrepancy. L leg shorter. Walks w cane at home. Risk of falls. Pending follow-up with orthopedics. COPD: Not in exacerbation DM2: Continue insulin HTN Diastolic CHF ALEC Hypothyroidism Other chronic conditions noted. Attestations Medical Necessity Statement*: Awaiting jail facility placement Coding Level of Care Code Acute Statue Carver for Chg Fwd Diagnoses Declining functional status R53.81 C. difficile colitis A04.72 Leukocytosis D72.829 Generalized weakness R53.1 Hypertension I10 ESRD (end stage renal disease) N18.6 DNR (do not resuscitate) Z66
[2020-04-16 20:27] LABS: Glucose Point of Care 150 mg/dL (70-110)
[2020-04-16] MEDS: acetaminophen 325 mg Tablet PO (21:23)
[2020-04-17] VITALS: BP 144/73; PULSE 98; RESP 18; TEMP 36.9; O2SAT 98
[2020-04-17] MEDS: acetaminophen 325 mg Tablet PO ×2 (02:16→10:08)
[2020-04-17 04:00] VITALS: BP 138/66; PULSE 90; RESP 18; TEMP 37.2; O2SAT 99
--- NOTE | 2020-04-17 06:29 | P.PN_ITS ---
Subjective Subjective: Interval history: seen during dialysis, no complaints Medications: Reviewed: Yes Vitals/I&O/Wt Last Vital Signs Temp 98.9 F 04/17/20 04:00 Pulse 90 04/17/20 04:00 Resp 18 04/17/20 04:00 BP 138/66 04/17/20 04:00 Pulse Ox 99 04/17/20 04:00 04/16/20 04/16/20 04/17/20 14:59 22:59 06:59 Intake Total 600 / 600 20 / 620 Output Total 550 / 550 50 / 600 Balance 600 / 600 -530 / 70 -50 / 20 Physical Exam Const: COMMON NORMALS: no acute distress GENERAL APPEARANCE: cooperative Neck/C-Spine: OTHER: + tunneled dialysis catheter Data : 04/16/20 09:49 04/16/20 09:49 Micro: Microbiology 04/14/20 00:10 Urine Culture - Preliminary Urine,Clean Catch A&P Additional A&P Information 1. ESRD, HD MWF 2. C.diff colitis 3. Anemia 4. DM 5. Hypertension Recommend: continue HD MWF Attestations Medical Necessity Statement*: per primary service Time Spent in Patient Care: 16 - 35 minutes Coding Level of Care Code Acute Utility Worker Forge for Brynn Castro
[2020-04-17 06:46] LABS: Glucose Point of Care 125 mg/dL (70-110)
[2020-04-17] MEDS: metoprolol tartrate 25 mg Tablet 12.5 MG PO ×2 (10:00→17:37)
[2020-04-17] MEDS: b-complex-vitamin c Tablet 1 EACH PO (10:00)
[2020-04-17] MEDS: levothyroxine 88 mcg Tablet PO (10:00)
[2020-04-17] MEDS: pantoprazole DR 40 mg Tablet PO ×2 (10:01→17:37)
[2020-04-17 11:01] LABS: Glucose Point of Care 227 mg/dL (70-110)
--- NOTE | 2020-04-17 11:04 | PC.SOCIAL ---
IMM Update Pg. 2 of IMM Updated and reviewed with patient, copy provided.
[2020-04-17 11:30] VITALS: BP 108/81; PULSE 83; RESP 16; TEMP 36.4; O2SAT 99
--- NOTE | 2020-04-17 15:18 | P.DS_ITS ---
Discharge Providers Date of Admission: 04/08/20 10:20 Date of Discharge: April 17, 2020 Attending Provider at Admission: Jared Oneill Attending Provider at Discharge: Casey Tamez DO Primary Care Provider: Carla Ceballos MD Diagnoses at Discharge Discharge Diagnosis (1) Declining functional status: Status: Acute (2) C. difficile colitis: Status: Acute (3) Leukocytosis: Status: Acute (4) Generalized weakness: Status: Acute (5) Hypertension: Status: Acute (6) ESRD (end stage renal disease): Status: Acute (7) DNR (do not resuscitate): Status: Acute Reason for Visit Reason for Visit: resp distress Hospital Course Hospital Course Patient was admitted for shortness of breath and uremia. He had an elevated potassium. He received urgent dialysis. Patient was found to have C. difficile colitis and treated with oral vancomycin. He was found to be debilitated and required physical and occupational therapy for rehabilitation. He was referred to a residential facility. Initially it was difficult to find accepting facility due to unknown treatment for end-stage renal disease. At this point patient is to continue hemodialysis. The best I can tell the patient may not be a good candidate for peritoneal dialysis. And hemodialysis should continue. This will be determined by his manager unit. Physical Exam Const: COMMON NORMALS: no acute distress, average body habitus and patient oriented x3 Neck/C-Spine: COMMON NORMALS: no JVD Resp: COMMON NORMALS: normal respiratory effort and clear to auscultation bilaterally AUSCULTATION: clear to auscultation bilaterally Cardio: COMMON NORMALS: no JVD, regular rate, regular rhythm and Peripheral pulses 2+ throughout RATE: regular rate RHYTHM: regular rhythm PERIPHERAL PULSES: Peripheral pulses 2+ throughout GI: COMMON NORMALS: Soft to palpation and non-tender PALPATION: Yes Soft to palpation Extremity: COMMON NORMALS: no clubbing, cyanosis or edema GENERAL: Yes edema (Bilateral lower extremities with discoloration consistent with venous insuf) Neuro: COMMON NORMALS: patient oriented x3 Discharge Data Data Completed and Pending: Completed Studies During Hospitalization Category Date Time Status XR chest 1V franki ble [id number] Routine Exams 04/14/20 10:57 Completed XR chest 1V franki ble [id number] Stat Exams 04/08/20 07:44 Completed Labs from last 24 hours 0204/17/20 04/16/20 10:55 06:42 20:23 POC Glucose 227 H 125 H 150 H 04/16/20 16:32 POC Glucose 170 H Vitals: Last Vital Signs Temp 97.5 F L 04/17/20 11:30 Pulse 83 04/17/20 11:30 Resp 16 04/17/20 11:30 BP 108/81 04/17/20 11:30 Pulse Ox 99 04/17/20 11:30 Discharge Plan Discharge Patient Disposition: Xfer SNF Condition: Stable Prescriptions: New B-complex with vitamin C Tablet 1 tab PO DAILY Qty: 30 RF: 0 Continued (DME) oxygen-air delivery systems Device See Rx Instructions .ROUTE .MEDSUPPLY Qty: 1 RF: 0 hydrocodone-acetaminophen 5-325 mg tablet 1 tab PO Q6H PRN (Reason: pain) RF: 0 metoprolol tartrate 25 mg tablet 12.5 mg PO BID RF: 0 levothyroxine 88 mcg tablet 88 mcg PO DAILY RF: 0 budesonide-formoterol [Symbicort] 160-4.5 mcg/actuation HFA aerosol inhaler 2 puff INHALATION BID RF: 0 omega-3 fatty acids-fish oil [Fish Oil] 360-1,200 mg capsule 1 cap PO DAILY RF: 0 RenaPlex-D 800 mcg-12.5 mg -2,000 unit tablet 1 tab PO QPM RF: 0 pantoprazole 40 mg Tablet,Delayed Release (Dr/Ec) 40 mg PO BID 30 Days Qty: 30 RF: 0 Lantus U-100 Insulin 100 unit/mL solution 10 unit SUBCUT BEDTIME RF: 0 amlodipine 5 mg Tablet 5 mg PO DAILY RF: 0 Held docusate sodium [Colace] 100 mg capsule 100 mg PO BID Qty: 30 RF: 0 Hold Instructions: Resume on 04/24/20. Pt with Cdiff Discontinued furosemide [Lasix] 80 mg Tablet 80 mg PO BID RF: 0 lanthanum 750 mg Tablet,Chewable 1,500 mg PO TID RF: 0 Discharge Orders: Discharge Order (Routine); Ordered 04/17/20 Ordered By: Casey Tamez Referrals: [facility] [Outside] Carla Ceballos MD [Primary Care Provider] - 04/22/20 1:45 pm () Discharge Diet: As Directed Discharge Activity: Increase activity as tolerated Activity Restrictions/Additional Instructions: Because C. difficile colitis can be infectious, please disinfect any common areas which may come in contact with stool that you may share with your mother or other people at home. Please complete course of vancomycin for C. difficile colitis. Follow-up with your primary care doctor to confirm resolution, or if diarrhea persists, the course may need to be extended. Please make sure to continue peritoneal dialysis lessons, and also continue hemodialysis. Follow-up with your manager unit to determine whether it may be safe to transition at a point to peritoneal dialysis alone, however, please be cautious not to stop hemodialysis until this may be safe due to risk of buildup of life-threatening toxins in your body. Please maintain fall precautions at all times. If there is any concern, call 911 immediately. Please reconsider again regarding going to residential facility, and discuss with your primary care doctor due to concerns that you may not be safe currently at home with limited social support. Please do reach out to her sister as you had planned for additional assistance with your treatments and care at home. Discharge Attestations Time Spent in Discharge Care*: less than 30 min Specific Discharge Activities: discussing with showcase trimmer/social workers/dc planners and documenting/other paperwork Quality Metrics Clinical Quality Measures During this hospital stay, did patient experience: None Coding Level of Care Code Acute Area Intelligence Technician for Brynn Fwd Diagnoses Declining functional status R53.81 C. difficile colitis A04.72 Leukocytosis D72.829 Generalized weakness R53.1 Hypertension I10 ESRD (end stage renal disease) N18.6 DNR (do not resuscitate) Z66
[2020-04-17 15:42] VITALS: BP 144/73; PULSE 88; RESP 16; TEMP 36.6; O2SAT 99
[2020-04-17 17:04] LABS: Glucose Point of Care 136 mg/dL (70-110)
[2020-04-17 17:41] VITALS: BP 144/73; PULSE 88; RESP 16; TEMP 36.6; O2SAT 99
== END 2020-04-17 17:43 | disposition skilled nursing facility (03) | DRG 371 ==
LOC: ER 11:44 → ER IP 14:32 → ICU 22:30 → MEDSURG 04-09 18:57
PROVIDERS: Internal Medicine; Internal Medicine Nephrology; Admitting Provider Internal Medicine; Emergency Provider Family Medicine; PCP Internal Medicine; Visit Provider Internal Medicine
DX: A04.72 Enterocolitis due to Clostridium difficile, not specified as recurrent (principal); N18.6 End stage renal disease; I13.2 Hypertensive heart and chronic kidney disease with heart failure and with stage 5 chronic kidney disease, or end stage renal disease; I50.32 Chronic diastolic (congestive) heart failure; N17.9 Acute kidney failure, unspecified; E87.2 Acidosis; N25.81 Secondary hyperparathyroidism of renal origin; E11.22 Type 2 diabetes mellitus with diabetic chronic kidney disease; Z99.2 Dependence on renal dialysis; I95.9 Hypotension, unspecified; E87.6 Hypokalemia; T68.XXXA Hypothermia, initial encounter; J44.9 Chronic obstructive pulmonary disease, unspecified; E03.9 Hypothyroidism, unspecified; D50.9 Iron deficiency anemia, unspecified; K76.9 Liver disease, unspecified; Z87.891 Personal history of nicotine dependence; Z99.81 Dependence on supplemental oxygen; M21.70 Unequal limb length (acquired), unspecified site; Z66 Do not resuscitate; Z79.4 Long term (current) use of insulin; Z79.891 Long term (current) use of opiate analgesic
CPT/HCPCS: 36415; 36416; 36600; 71045; 80048; 80051; 80053; 80202; 80307; 80500; 81001; 82140; 82310; 82330; 82533; 82550; 82803; 82805; 82962; 83605; 83690; 83735; 83970; 84100; 84443; 85025; 86706; 86803; 87040; 87070; 87075; 87086; 87205; 87340; 87493; 87506; 89050; 90935; 94640; 96365; 96367; 96372; 96375; 97110; 97116; 97162; 97166; 97530; 97535; 99285; J0610; J1644; J1815 ×2; J2543; J3370; J7050; Q3014; Q4081

== ENCOUNTER → 2020-06-03 10:49 | Outpatient (BNVA) | payer MEDICARE, MEDICAID, SELFPAY | PROVIDERS: PCP Internal Medicine; Referring Provider Internal Medicine; Visit Provider Orthopaedic Surgery | DX: M25.552 Pain in left hip (principal); M16.12 Unilateral primary osteoarthritis, left hip | CPT/HCPCS: 73502 ==

== ENCOUNTER 2020-07-09 11:33 | Inpatient (IN) | payer MEDICARE, MEDICAID, SELFPAY ==
[2020-07-09] VITALS (9 sets, daily range): BP systolic 115–170; BP diastolic 59–77; PULSE 77–91; RESP 16–20; TEMP 36.5–36.8; O2SAT 98–100; BMI 23.6
--- NOTE | 2020-07-09 12:31 | USCV_ITS ---
Helio Reynoso Age: 65 Gender: M : 1955 Exam Date: 07/09/2020 12:43 Ordering Phys: John Sotelo DO Technologist: Argelia Lopez [place] [facility] [place]: LT LEG REDNESS AND EDEMA PROCEDURES: Venous duplex imaging was performed in only the left lower extremity. The following venous structures were evaluated: common femoral vein, profunda vein, proximal portion of the greater saphenous vein, superficial femoral vein, and the popliteal vein. In addition, the posterior tibial and peroneal trunk were evaluated. FINDINGS: Normal 2-D Doppler and augmentation and compressibility throughout the lower extremity venous structures. Additional imaging through the proximal calf veins also reveals no thrombus. Limited evaluation of the greater saphenous vein is patent with no thrombus.. CONCLUSIONS No evidence of left lower extremity DVT. Prominent lymph node left groin measuring 2.7 cm non specific but may be reactive Rocky Cooper MD (Electronically Signed) Final Date: 09 Jul 2020 17:05 S
[2020-07-09 15:31] LABS: Basophils # 0.1 10^3/uL (0.0-0.1); Basophils % 0.5 %; Eosinophils # 0.1 10^3/uL (0.0-0.8); Eosinophils % 0.4 %; Hematocrit 38.5 % (42.0-52.0); Lymphocytes # 1.5 10^3/uL (0.8-4.8); Mean Corpuscular HGB Conc 31.2 g/dL (30.0-36.0); Mean Corpuscular Hemoglobin 32.3 pg (28.0-34.0); Mean Corpuscular Volume 103.8 fL (80-94); Mean Platelet Volume 9.4 fL (7.4-10.4); Monocytes # 1.3 10^3/uL (0.2-0.9); Monocytes % 7.3 %; Neutrophils # 14.95 10^3/uL (1.8-7.7); Neutrophils % 81.6 %; Nucleated Red Blood Cells % 0 %; Platelet Count 457 10^3/cmm (130-400); Red Blood Count 3.71 10^6/uL (4.1-5.3); Red Cell Distribution Width 17.4 % (12.1-15.1); White Blood Count 18.3 10^3/uL (4.0-10.0)
--- NOTE | 2020-07-09 15:32 | XRR_ITS ---
PROCEDURE INFORMATION: Exam: XR Chest Exam date and time: 07/09/2020 3:33 PM Age: 65 years old Clinical indication: Injury or trauma; Fall; Blunt trauma (contusions or hematomas) TECHNIQUE: Imaging protocol: XR of the chest. Views: 1 view. COMPARISON: CR XR chest 1V portable [id number] 04/14/2020 12:25 PM FINDINGS: Lungs: The lungs are mildly hyperinflated, suggesting possible COPD. No consolidative pulmonary infiltrates are noted. Pleural spaces: Unremarkable. No pleural effusion. No pneumothorax. Heart/Mediastinum: No cardiomegaly. Vasculature: The thoracic aorta is mildly atherosclerotic. Bones/joints: Unremarkable. XR/XR chest 1V portable [id number] IMPRESSION: 1. The lungs are mildly hyperinflated, suggesting possible COPD. 2. No acute abnormality demonstrated.
--- NOTE | 2020-07-09 15:34 | W.ED.FALL ---
HPI - Fall General: Chief Complaint: Fall Stated Complaint: L LEG PAIN/ REDNESS AND SWELLING Time Seen by Provider: 07/09/20 14:27 Source: patient Mode of arrival: EMS Limitations: no limitations History of Present Illness: HPI Narrative: 65-year-old male patient with a history of CHF, end-stage renal disease on peritoneal dialysis, presents to the emergency department for evaluation. He states that he fell about 5 to 7 days ago and has had pain in his left lower extremity since then. He endorses swelling of the left lower extremity, redness, pain. He denies any fever, nausea or vomiting. complaint: fall Onset (ago): week(s) (1) Fall from: standing Place fall occurred: home Loss of consciousness: None Review of Systems General: Reports: 10 or more systems reviewed and unremarkable except in HPI and below PFSH ED PFSH: Medical History (Updated 07/09/20 @ 22:33 by Shubham Clark MD, [facility] [place]) Altered mental status Blood transfusion abn reaction or complication, no procedure mishap Cataract disorder type 14 COPD (chronic obstructive pulmonary disease) Diastolic congestive heart failure ESRD (end stage renal disease) Hypertension Hypothyroidism Insulin dependent type 2 diabetes mellitus Iron deficiency anemia Nonalcoholic liver disease, chronic Secondary hyperparathyroidism Surgical History H/O esophagogastroduodenoscopy 2020 History of open reduction and internal fixation (ORIF) procedure Peritoneal dialysis catheter in place (03/14/20) S/P dialysis catheter insertion (08/30/19) Status post creation of arteriovenous fistula Family History Other CAD (coronary artery disease) Hyperlipidemia Hypertension Denies family history of Anesthesia complication Bleeding disorder Cancer Social History Smoking and tobacco status: former smoker Alcohol intake: never Household members: family and other Details: Lives with his mother Current occupational status: disabled History of recent travel: No Physical Exam Const: COMMON NORMALS: no acute distress, average body habitus, patient oriented x3, no limitations, healthy appearing, alert and well nourished HENMT: COMMON NORMALS: normocephalic, atraumatic and moist oral mucous membranes HEAD & SCALP: normocephalic and atraumatic Neck/C-Spine: COMMON NORMALS: full ROM, supple, no meningeal signs, no JVD and No carotid bruits Cardio: COMMON NORMALS: no JVD, regular rate, regular rhythm, S1 normal heart sound present, S2 normal heart sound present, No gallops present (Cardio), No clicks present (Cardio), No murmurs present (Cardio), No rub (Cardio) and Peripheral pulses 2+ throughout RATE: regular rate RHYTHM: regular rhythm HEART SOUNDS: S1 normal heart sound present and S2 normal heart sound present PERIPHERAL PULSES: Peripheral pulses 2+ throughout GI: COMMON NORMALS: Normal to inspection, nondistended, normoactive bowel sounds present, Soft to palpation, non-tender, No hepatosplenomegaly present, no masses and no bruits PALPATION: Yes Soft to palpation and Yes No hepatosplenomegaly present Extremity: COMMON NORMALS: normal to inspection, full ROM, capillary refill normal and no calf tenderness GENERAL: Yes edema (4+ edema on his left, 3+ on the right.) OTHER: Left lower extremity with erythema, warmth, tenderness. Left great toe has a superficial wound with a dark eschar. No drainage noted from the wound. Neuro: COMMON NORMALS: patient oriented x3 SENSORIUM/ORIENTATION: Yes alert MENINGEAL SIGNS: Yes no meningeal signs Skin: COMMON NORMALS: no rashes or lesions noted, no wounds, turgor normal, no jaundice, no petechiae and no mottling GENERAL SKIN EXAM: no rashes or lesions noted and turgor normal Course Reevaluation(s): Reevaluation #1: Discussed his lab and imaging findings with him. Advised that he will benefit from hospital admission. He voiced understanding and is in agreement with the plan. Time: 17:00 Consultations: Consultation #1: Discussed the patient with Dr. Samson, hospitalist and he kindly accepted patient to his service. Time: 17:10 Vital Signs: Vital signs: Vital Signs Temperature 97.7 F 07/09/20 19:43 Pulse Rate 91 07/09/20 19:43 Respiratory Rate 20 H 07/09/20 19:43 Blood Pressure 170/68 07/09/20 19:43 Pulse Oximetry 98 07/09/20 19:43 MDM - Fall MDM Narrative: Medical decision making narrative: 65-year-old male patient with clinical features consistent with left leg cellulitis. He has leukocytosis, clinical features of cellulitis, and is being admitted for intravenous antibiotics and wound care. Medical Records: Attestation: I reviewed the patient's medical records. Lab Data: Attestation: I reviewed the patient's lab results. Labs: Lab Results 07/09/20 07/09/20 07/09/20 Range/Units 15:14 15:14 15:14 WBC 18.3 H (4.0-10.0) 10^3/ uL RBC 3.71 L (4.1-5.3) 10^6/u L Hgb 12.0 (11.7-16.6) g/dL Hct 38.5 L (42.0-52.0) % MCV 103.8 H (80-94) fL MCH 32.3 (28.0-34.0) pg MCHC 31.2 (30.0-36.0) g/dL RDW 17.4 H (12.1-15.1) % Plt Count 457 H (130-400) 10^3/c mm MPV 9.4 (7.4-10.4) fL Neut % (Auto) 81.6 % Lymph % (Auto) 8.0 % Mcleod % (Auto) 7.3 % Eos % (Auto) 0.4 % Baso % (Auto) 0.5 % Neut # (Auto) 14.95 H (1.8-7.7) 10^3/u L Lymph # (Auto) 1.5 (0.8-4.8) 10^3/u L Mcleod # (Auto) 1.3 H (0.2-0.9) 10^3/u L Eos # (Auto) 0.1 (0.0-0.8) 10^3/u L Baso # (Auto) 0.1 (0.0-0.1) 10^3/u L Nucleated RBC % (a uto) 0 % Nucleated RBCs # 0.0 /100WBC Sodium Cancelled Potassium Cancelled Chloride Cancelled Carbon Dioxide Cancelled Anion Gap Cancelled BUN Cancelled Creatinine Cancelled GFR Calculation Cancelled Glucose Cancelled Calculated Osmolal ity Cancelled Lactic Acid (0.5-2.2) mmol/L Calcium Cancelled Total Bilirubin Cancelled AST Cancelled ALT Cancelled Alkaline Phosphata se Cancelled C-Reactive Protein Cancelled NT-Pro-B Natriuret Pep (0-125) pg/mL Total Protein Cancelled Albumin Cancelled Globulin Cancelled TSH (0.27-4.20) uIU/ mL 07/09/20 07/09/20 07/09/20 Range/Units 16:18 16:18 16:18 WBC (4.0-10.0) 10^3/ uL RBC (4.1-5.3) 10^6/u L Hgb (11.7-16.6) g/dL Hct (42.0-52.0) % MCV (80-94) fL MCH (28.0-34.0) pg MCHC (30.0-36.0) g/dL RDW (12.1-15.1) % Plt Count (130-400) 10^3/c mm MPV (7.4-10.4) fL Neut % (Auto) % Lymph % (Auto) % Mcleod % (Auto) % Eos % (Auto) % Baso % (Auto) % Neut # (Auto) (1.8-7.7) 10^3/u L Lymph # (Auto) (0.8-4.8) 10^3/u L Mcleod # (Auto) (0.2-0.9) 10^3/u L Eos # (Auto) (0.0-0.8) 10^3/u L Baso # (Auto) (0.0-0.1) 10^3/u L Nucleated RBC % (a uto) % Nucleated RBCs # /100WBC Sodium 132 L Potassium 3.0 L Chloride 91 L Carbon Dioxide 28 Anion Gap 16.0 BUN 45 H Creatinine 3.6 H GFR Calculation 17.1 L Glucose 235 H Calculated Osmolal ity 293 Lactic Acid 1.0 (0.5-2.2) mmol/L Calcium 8.3 L Total Bilirubin 0.2 AST 17 ALT 30 Alkaline Phosphata se 125 C-Reactive Protein 142.6 H NT-Pro-B Natriuret Pep 4381 H (0-125) pg/mL Total Protein 6.4 L Albumin 2.9 L Globulin 3.5 TSH (0.27-4.20) uIU/ mL 07/09/20 Range/Units 16:18 WBC (4.0-10.0) 10^3/ uL RBC (4.1-5.3) 10^6/u L Hgb (11.7-16.6) g/dL Hct (42.0-52.0) % MCV (80-94) fL MCH (28.0-34.0) pg MCHC (30.0-36.0) g/dL RDW (12.1-15.1) % Plt Count (130-400) 10^3/c mm MPV (7.4-10.4) fL Neut % (Auto) % Lymph % (Auto) % Mcleod % (Auto) % Eos % (Auto) % Baso % (Auto) % Neut # (Auto) (1.8-7.7) 10^3/u L Lymph # (Auto) (0.8-4.8) 10^3/u L Mcleod # (Auto) (0.2-0.9) 10^3/u L Eos # (Auto) (0.0-0.8) 10^3/u L Baso # (Auto) (0.0-0.1) 10^3/u L Nucleated RBC % (a uto) % Nucleated RBCs # /100WBC Sodium Potassium Chloride Carbon Dioxide Anion Gap BUN Creatinine GFR Calculation Glucose Calculated Osmolal ity Lactic Acid (0.5-2.2) mmol/L Calcium Total Bilirubin AST ALT Alkaline Phosphata se C-Reactive Protein NT-Pro-B Natriuret Pep (0-125) pg/mL Total Protein Albumin Globulin TSH 3.37 (0.27-4.20) uIU/ mL Imaging Data^: CXR: Attestation: I personally reviewed and interpreted this imaging study as follows: Radiologist's impression: [address] [id number] ReportSigned Patient: Helio Reynoso #: [id number]: [id number]#:[id number]/Sex: 65 / MADM Date: 07/09/20Loc: ERRoom/Bed:Attending Dr: Ordering Provider/Ordering MD: Shubham Clark MD, [facility] [place] Date of Service: 07/09/20 Procedure(s): XR chest 1V portable [id number] Accession Number(s): [id number] Report Number: [id number] PROCEDURE INFORMATION: Exam: XR Chest Exam date and time: 07/09/2020 3:33 PM Age: 65 years old Clinical indication: Injury or trauma; Fall; Blunt trauma (contusions or hematomas) TECHNIQUE: Imaging protocol: XR of the chest. Views: 1 view. COMPARISON: CR XR chest 1V portable [id number] 04/14/2020 12:25 PM FINDINGS: Lungs: The lungs are mildly hyperinflated, suggesting possible COPD. No consolidative pulmonary infiltrates are noted. Pleural spaces: Unremarkable. No pleural effusion. No pneumothorax. Heart/Mediastinum: No cardiomegaly. Vasculature: The thoracic aorta is mildly atherosclerotic. Bones/joints: Unremarkable. XR/XR chest 1V portable [id number] IMPRESSION: 1. The lungs are mildly hyperinflated, suggesting possible COPD. 2. No acute abnormality demonstrated. Dictated By:Mitchell Tucker MDSigned By:Mitchell Tucker MDSigned Date/Time:07/09/208DD/ 161 Vascular: Attestation: I personally reviewed and interpreted this imaging study as follows: Radiologist's impression: [address] [id number] ReportSigned Patient: Helio Reynoso LUnit #: [id number]: 1955cct#:[id number]/Sex: 65 / MADM Date: 07/09/20Loc: ERRoom/Bed:Attending Dr: Ordering Provider/Ordering MD: John Sotelo DO Date of Service: 07/09/20 Procedure(s): [place] [address] Accession Number(s): [id number] Report Number: [id number] Helio Reynoso Age: 65 Gender: M : 1955 Exam Date: 07/09/2020 12:43 Ordering Phys: John Sotelo DO Technologist: Argelia Lopez Exam Location: [facility] [place] Indication: LT LEG REDNESS AND EDEMA PROCEDURES: Venous duplex imaging was performed in only the left lower extremity. The following venous structures were evaluated: common femoral vein, profunda vein, proximal portion of the greater saphenous vein, superficial femoral vein, and the popliteal vein. In addition, the posterior tibial and peroneal trunk were evaluated. FINDINGS: Normal 2-D Doppler and augmentation and compressibility throughout the lower extremity venous structures. Additional imaging through the proximal calf veins also reveals no thrombus. Limited evaluation of the greater saphenous vein is patent with no thrombus.. CONCLUSIONS No evidence of left lower extremity DVT. Prominent lymph node left groin measuring 2.7 cm non specific but may be reactive Rocky Cooper MD (Electronically Signed) Final Date: 09 Jul 2020 17:05 S Discharge Plan Discharge Patient Disposition: Admitted As Inpatient Admit Provider: Arnaldo Samson Clinical Impression: Left leg cellulitis, End stage renal disease Condition: Stable Coding Level of Care Code ED Distributed Generation Project Manager for Brynn Castro
[2020-07-09 16:58] LABS: Alanine Aminotransferase 30 U/L (0-41); Albumin Level 2.9 g/dL (3.5-5.2); Alkaline Phosphatase 125 IU/L (40-130); Aspartate Amino Transferase 17 U/L (0-40); Blood Urea Nitrogen 45 mg/dL (8-23); C Reactive Protein 142.6 mg/L (0.0-4.9); Calcium 8.3 mg/dL (8.5-10.5); Carbon Dioxide 28 mmol/L (22-29); Chloride 91 mmol/L (98-107); Globulin 3.5 g/dL (1.3-4.6); Glomerular Filtration Rate 17.1 mL/min (90-130); Glucose 235 mg/dL (65-115); Osmolality Calculated 293 mOsm/kg (285-295); Sodium 132 mmol/L (136-145); Total Bilirubin 0.2 mg/dL (0.15-1.2); Total Protein 6.4 g/dL (6.6-8.7)
[2020-07-09 17:09] LABS: NT Pro B Type Natriuretic Pept 4381 pg/mL (0-125)
[2020-07-09] MEDS: vancomycin 1,000 MG in sodium chloride 0.9% 250 ML 250 MG IV (17:45)
--- NOTE | 2020-07-09 17:47 | XRR_ITS ---
PROCEDURE INFORMATION: Exam: XR Right Tibia and Fibula Exam date and time: 07/09/2020 5:58 PM Age: 65 years old Clinical indication: Cellulitis; Lower leg; Right; Additional info: Cellulltis TECHNIQUE: Imaging protocol: XR Right tibia and fibula. Views: 2 views. COMPARISON: No relevant prior studies available. FINDINGS: Bones/joints: No fracture or other acute osseous abnormality. No osteolysis. No periosteal reaction. Soft tissues: Soft tissue edema noted. No air in the soft tissues. Vasculature: There are atherosclerotic calcifications demonstrated. XR/XR tibia fibula RT 2V [id number] IMPRESSION: 1. Soft tissue edema noted. No air in the soft tissues. 2. No radiographic evidence of osteomyelitis.
--- NOTE | 2020-07-09 17:58 | P.HP_ITS ---
Providers/Chief Complaint Primary Care Provider: Carla Ceballos MD Chief Complaint: L LEG PAIN/ REDNESS AND SWELLING History of Present Illness Helio Reynoso is a 65 year old male with a past medical history of insulin-dependent type 2 diabetes mellitus, hypothyroidism, hypertension, CKD peritoneal dialysis, chronic pain, who presents to [facility] due to complaints of left lower extremity pain, swelling, for 1 week. Patient tells me that roughly a week ago he fell, he hit his left lower extremity, on the ground, he started to develop swelling over the area. No scratches, no cuts, no open sores, no fevers, chills, he does have type 2 diabetes, he also developed an area of cellulitis over the right lower extremity great toe. Review of Systems Const: Denies: fever(s), chills, fatigue or malaise Eyes: Denies: change in vision or blurry vision ENMT: Denies: nasal congestion Resp: Denies: dyspnea, productive cough, non-productive cough or wheezing GI: Denies: abdominal pain, nausea, vomiting, diarrhea, constipation or melena : Denies: flank pain, difficulty urinating or dysuria Musc: Denies: neck pain Skin/Breast: Denies: rash Neuro: Denies: headache(s) or dizziness Psych: Denies: anxiety Endo: Denies: polyuria Medications/Allergies Home Medications Medication Instructions Recorded Confirmed Last Taken Type budesonide-formoterol [Symbicort] 2 puff INHALATION BID 03/15/19 07/09/20 07/09/20 History levothyroxine 88 mcg PO DAILY 03/15/19 07/09/20 07/09/20 History omega-3 fatty acids-fish oil [Fish 1 cap PO DAILY 03/15/19 07/09/20 07/09/20 History Oil] oxygen-air delivery systems #1 04/13/19 07/09/20 Unknown History RenaPlex-D 1 tab PO QPM 08/19/19 07/09/20 07/08/20 History pantoprazole 40 mg PO BID 30 Days #30 tab 10/27/19 07/09/20 07/09/20 Rx metoprolol tartrate 25 mg tablet 12.5 mg PO BID 02/27/20 07/09/20 07/09/20 History Lantus U-100 Insulin 10 unit SUBCUT BEDTIME 03/13/20 07/09/20 07/08/20 History amlodipine 5 mg PO DAILY 03/13/20 07/09/20 07/09/20 History B-complex with vitamin C 1 tab PO DAILY #30 tab 04/17/20 07/09/20 07/09/20 Rx furosemide 80 mg tablet 80 mg PO BID 06/03/20 07/09/20 07/09/20 History gentamicin 0.1 % topical cream 1 applic TOPICAL DAILY g 06/03/20 07/09/20 Unknown History doxycycline hyclate 100 mg PO BID 07/09/20 07/09/20 07/09/20 History oxycodone-acetaminophen 1 tab PO Q6H PRN 07/09/20 07/09/20 07/09/20 History sodium bicarbonate 650 mg PO BID 07/09/20 07/09/20 07/09/20 History Allergies Allergy/AdvReac Type Severity Reaction Status Date / Time No Known Allergies Allergy Verified 07/09/20 12:10 PFSH Acute PFSH: Medical History (Updated 07/09/20 @ 18:05 by Arnaldo Samson MD) Altered mental status Blood transfusion abn reaction or complication, no procedure mishap Cataract disorder type 14 COPD (chronic obstructive pulmonary disease) Diastolic congestive heart failure ESRD (end stage renal disease) Hypertension Hypothyroidism Insulin dependent type 2 diabetes mellitus Iron deficiency anemia Nonalcoholic liver disease, chronic Secondary hyperparathyroidism Surgical History H/O esophagogastroduodenoscopy 2019 History of open reduction and internal fixation (ORIF) procedure Peritoneal dialysis catheter in place (03/14/20) S/P dialysis catheter insertion (08/30/19) Status post creation of arteriovenous fistula Family History Other CAD (coronary artery disease) Hyperlipidemia Hypertension Denies family history of Anesthesia complication Bleeding disorder Cancer Social History Smoking and tobacco status: former smoker Alcohol intake: never Household members: family and other Details: Lives with his mother Current occupational status: disabled History of recent travel: No Vitals/I&O/Wt Last Vital Signs Temp 98.0 F 07/09/20 12:05 Pulse 87 07/09/20 17:30 Resp 18 07/09/20 17:30 BP 155/77 07/09/20 17:30 Pulse Ox 99 07/09/20 17:30 Weight last 48 hrs Weight 70.307 kg Physical Exam Const: COMMON NORMALS: no acute distress and patient oriented x3 GENERAL APPEARANCE: cooperative and comfortable Eye: COMMON NORMALS: Equal, round and reactive pupils present and no papilledema GENERAL EYE: appearance normal, both eyes and all related structures PUPIL: Yes Equal, round and reactive pupils present Neck/C-Spine: COMMON NORMALS: full ROM, no lymphadenopathy and Thyroid normal Lymph: LYMPHATIC: no lymphadenopathy noted Resp: COMMON NORMALS: normal respiratory effort, No retractions, No use of accessory muscles and clear to auscultation bilaterally AUSCULTATION: clear to auscultation bilaterally Cardio: COMMON NORMALS: no JVD, regular rate, regular rhythm, S1 normal heart sound present, S2 normal heart sound present, No gallops present (Cardio), No clicks present (Cardio) and No murmurs present (Cardio) RATE: regular rate RHYTHM: regular rhythm HEART SOUNDS: S1 normal heart sound present and S2 normal heart sound present GI: COMMON NORMALS: Normal to inspection, nondistended, normoactive bowel sounds present, Soft to palpation and non-tender PALPATION: Yes Soft to palpation Extremity: COMMON NORMALS: normal to inspection and full ROM NARRATIVE EXTREMITY EXAM: Left lower extremity, area of warmth, redness, from mid eduardo down to distal eduardo, Left lower extremity, great toe, open sore, distal tip Neuro: COMMON NORMALS: patient oriented x3, CN's II-XII intact bilaterally and moves all extremities Psych: COMMON NORMALS: mental status grossly normal, Normal thought process present and cooperative THOUGHT PROCESS: Normal thought process present Urinary Catheter Management^: Erwin: Cath Placed During This Visit: yes Urinary Catheter Date of Insertion: 07/09/20 Urinary Catheter Time of Insertion: 17:31 Data : 07/09/20 15:14 07/09/20 16:18 A&P Assessment and plan (1) Left leg cellulitis: -Left eduardo -Left great toe -WBC 18.3, CRP 142 Plan -Admit to general medical floors -Broad-spectrum antibiotics vancomycin, Rocephin -Blood cultures -X-ray of tib-fib -We will consult podiatry for debridement and wound care of right great toe -For now wound care -Monitor clinical status -Full code -Heparin for DVT prophylaxis Status: Acute (2) End stage renal disease: Have consulted nephrology for peritoneal dialysis Status: Acute (3) Secondary hyperparathyroidism: Status: Acute (4) Diastolic congestive heart failure: Does have bilateral 1+ pitting edema, advises me that he does urinate, is on Lasix 80 twice daily -Start Bumex 1 mg every 12 hours -For hypokalemia potassium 3.0, will give 40 mEq of Klor-Con Status: Acute (5) COPD (chronic obstructive pulmonary disease): Chronically on 2 L, not in exacerbation Status: Acute (6) Hypothyroidism: Status: Acute (7) Insulin dependent type 2 diabetes mellitus: Insulin sliding scale, home Lantus Status: Acute Attestations Medical Necessity Statement*: Patient requires hospitalization, inpatient, greater than 2 midnights, for left lower extremity cellulitis Coding Level of Care Code Acute 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
--- NOTE | 2020-07-09 18:08 | XRR_ITS ---
PROCEDURE INFORMATION: Exam: XR Left Tibia and Fibula Exam date and time: 07/09/2020 6:29 PM Age: 65 years old Clinical indication: Cellulitis; Lower leg; Left; Prior surgery; Additional info: Cellultiis TECHNIQUE: Imaging protocol: XR Left tibia and fibula. Views: 2 views. COMPARISON: No relevant prior studies available. FINDINGS: Bones/joints: Status post ORIF of the distal tibia. The hardware appears intact. The fracture appears to have healed. Healed fracture of the distal shaft of the fibula. No acute fracture. No evidence of osteomyelitis. Soft tissues: Soft tissue edema noted. No air in the soft tissues. XR/XR tibia fibula LT 2V [id number] IMPRESSION: 1. Status post ORIF of the distal tibia. 2. Healed fracture of the distal shaft of the fibula. 3. No evidence of osteomyelitis.
--- NOTE | 2020-07-09 18:09 | PM.CONSULT ---
Providers/Reason For Consult Consulting Physican/Specialty*: felicia kay md/ telenephrology Reason for Consult*: ESRD care Requesting Physcian: Dr. Arnaldo Samson Primary Care Provider: Carla Ceballos MD History of Present Illness History of Present Illness Helio Reynoso is a 65 year old male ESRD on CCPD- recent HD catheter removal 2 weeks ago. H/O IDDM, hypothyroidism, diastolic CHF. Pt fell 1 week ago. he is here w/ LLE pain, redness and tenderness. He was dx w/ a LLE cellulitis and admitted to [facility] [place]. renal called to provide ESRD care. Review of Systems General: Reports: 10 or more systems reviewed and unremarkable except in HPI and below Narrative: weak, denies fevers. poor sugar control. states he is eating. poor vision. no CP, No SOB, + still urinates and no complaints. LLE pain and tender, red, and warm and swollen. Meds/Allergies Home Medications and Allergies Home Medications Medication Instructions Recorded Confirmed Last Taken Type budesonide-formoterol [Symbicort] 2 puff INHALATION BID 03/15/19 07/09/20 07/09/20 History levothyroxine 88 mcg PO DAILY 03/15/19 07/09/20 07/09/20 History omega-3 fatty acids-fish oil [Fish 1 cap PO DAILY 03/15/19 07/09/20 07/09/20 History Oil] oxygen-air delivery systems #1 04/13/19 07/09/20 Unknown History RenaPlex-D 1 tab PO QPM 08/19/19 07/09/20 07/08/20 History pantoprazole 40 mg PO BID 30 Days #30 tab 10/27/19 07/09/20 07/09/20 Rx metoprolol tartrate 25 mg tablet 12.5 mg PO BID 02/27/20 07/09/20 07/09/20 History Lantus U-100 Insulin 10 unit SUBCUT BEDTIME 03/13/20 07/09/20 07/08/20 History amlodipine 5 mg PO DAILY 03/13/20 07/09/20 07/09/20 History B-complex with vitamin C 1 tab PO DAILY #30 tab 04/17/20 07/09/20 07/09/20 Rx furosemide 80 mg tablet 80 mg PO BID 06/03/20 07/09/20 07/09/20 History gentamicin 0.1 % topical cream 1 applic TOPICAL DAILY g 06/03/20 07/09/20 Unknown History doxycycline hyclate 100 mg PO BID 07/09/20 07/09/20 07/09/20 History oxycodone-acetaminophen 1 tab PO Q6H PRN 07/09/20 07/09/20 07/09/20 History sodium bicarbonate 650 mg PO BID 07/09/20 07/09/20 07/09/20 History Allergies Allergy/AdvReac Type Severity Reaction Status Date / Time No Known Allergies Allergy Verified 07/09/20 12:10 PFSH Acute PFSH: Medical History (Updated 07/09/20 @ 18:05 by Arnaldo Samson MD) Altered mental status Blood transfusion abn reaction or complication, no procedure mishap Cataract disorder type 14 COPD (chronic obstructive pulmonary disease) Diastolic congestive heart failure ESRD (end stage renal disease) Hypertension Hypothyroidism Insulin dependent type 2 diabetes mellitus Iron deficiency anemia Nonalcoholic liver disease, chronic Secondary hyperparathyroidism Surgical History H/O esophagogastroduodenoscopy 2019 History of open reduction and internal fixation (ORIF) procedure Peritoneal dialysis catheter in place (03/14/20) S/P dialysis catheter insertion (08/30/19) Status post creation of arteriovenous fistula Family History Other CAD (coronary artery disease) Hyperlipidemia Hypertension Denies family history of Anesthesia complication Bleeding disorder Cancer Social History Smoking and tobacco status: former smoker Alcohol intake: never Household members: family and other Details: Lives with his mother Current occupational status: disabled History of recent travel: No Vitals/I&O/Wt Last Vital Signs Temp 98.0 F 07/09/20 12:05 Pulse 87 07/09/20 17:30 Resp 18 07/09/20 17:30 BP 155/77 07/09/20 17:30 Pulse Ox 99 07/09/20 17:30 Weight last 48 hrs Weight 70.307 kg Physical Exam Narrative: EXAM NARRATIVE: VS noted comfortable in bed, NARD HEENT- nc/at, eomi, anicteric neck supple lunbgs clear b/l heart reg, +SALINA abd soft, nt, nd, +BS, + Tenkoff catheter- non tender ext LLE red, swollen, swollen. RLE less edema- non tender pulses weak DP and PT neuro- a,a, o x 3 mood normal exam by RN as telehealth visit Urinary Catheter Management^: Erwin: Cath Placed During This Visit: yes Urinary Catheter Date of Insertion: 07/09/20 Urinary Catheter Time of Insertion: 17:31 Data Micro: Micro: Microbiology 07/09/20 16:18 Blood Culture - Pr eliminary Blood SPECIMEN COLLE SHERIE A&P Additional A&P Information 65 yr old man 1. ESRD- cont PD- hospital only has CAPD- will do 5 exchanges a day- 1.5% gluc, low ca -check vanco level in am 2. Cellulitis- dose abx for ESRD on PD 3. DM care per medicine 4. gentle k repletion -hold bumex- can diurese w/ PD 5. hgb good 6. bone- minerla- metabolism of ESRD- check phos, pth 7. check tsh on levothyroxine discussed w/ Dr. 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
[2020-07-09] MEDS: potassium chloride ER 20 mEq Tablet 40 MEQ PO (19:23)
[2020-07-09 20:36] LABS: Glucose Point of Care 167 mg/dL (70-110)
[2020-07-09 21:57] LABS: Thyroid Stimulating Hormone 3.37 uIU/mL (0.27-4.20)
[2020-07-09] MEDS: cefTRIAXone 1,000 MG in sodium chloride 0.9% (plus) 50 ML 100 MG IV (21:59)
[2020-07-09] MEDS: heparin 5,000 unit/mL INJ 1 mL 5000 UNIT SUBCUT (22:06)
[2020-07-09] MEDS: insulin glargine 100 units/1 mL 10 UNIT SUBCUT (22:06)
[2020-07-09] MEDS: pantoprazole DR 40 mg Tablet PO (22:07)
[2020-07-09] MEDS: metoprolol tartrate 25 mg Tablet 12.5 MG PO (22:07)
[2020-07-09] MEDS: bumetanide 0.25 mg/mL SDV 4 mL 1 MG IV (22:18)
[2020-07-09] MEDS: Dianeal low Ca w/1.5% dex 2,000 mL Bag 2000 ML INTRAPERIT (23:13)
[2020-07-10] VITALS (12 sets, daily range): BP systolic 127–147; BP diastolic 54–75; PULSE 65–94; RESP 16–18; TEMP 36.8–37.3; O2SAT 93–99
[2020-07-10 05:44] LABS: Basophils # 0.1 10^3/uL (0.0-0.1); Basophils % 0.4 %; Eosinophils # 0.1 10^3/uL (0.0-0.8); Eosinophils % 0.6 %; Hematocrit 32.3 % (42.0-52.0); Hemoglobin 10.4 g/dL (11.7-16.6); Lymphocytes # 1.3 10^3/uL (0.8-4.8); Lymphocytes % 7.2 %; Mean Corpuscular HGB Conc 32.2 g/dL (30.0-36.0); Mean Corpuscular Hemoglobin 32.3 pg (28.0-34.0); Mean Corpuscular Volume 100.3 fL (80-94); Mean Platelet Volume 9.1 fL (7.4-10.4); Monocytes # 1.1 10^3/uL (0.2-0.9); Monocytes % 6.2 %; Neutrophils # 15.02 10^3/uL (1.8-7.7); Nucleated Red Blood Cells % 0 %; Platelet Count 455 10^3/cmm (130-400); Red Blood Count 3.22 10^6/uL (4.1-5.3); Red Cell Distribution Width 16.8 % (12.1-15.1); White Blood Count 17.9 10^3/uL (4.0-10.0)
[2020-07-10 06:15] LABS: Vancomycin Trough 16.9 ug/mL (10-15)
[2020-07-10 06:23] LABS: Calcium 7.6 mg/dL (8.5-10.5); Parathyroid Hormone 80.7 pg/mL (15-65)
[2020-07-10 06:24] LABS: Procalcitonin 0.24 ng/mL (0-0.5)
[2020-07-10 06:41] LABS: Alanine Aminotransferase 25 U/L (0-41); Albumin Level 2.3 g/dL (3.5-5.2); Alkaline Phosphatase 121 IU/L (40-130); Anion Gap 16.4 (5-19); Carbon Dioxide 27 mmol/L (22-29); Chloride 96 mmol/L (98-107); Globulin 3.5 g/dL (1.3-4.6); Glucose 136 mg/dL (65-115); Phosphorus 3.1 mg/dL (2.5-4.5); Potassium 3.4 mmol/L (3.5-5.1); Sodium 136 mmol/L (136-145); Total Bilirubin 0.2 mg/dL (0.15-1.2); Total Protein 5.8 g/dL (6.6-8.7)
[2020-07-10 06:44] LABS: Glucose Point of Care 135 mg/dL (70-110)
[2020-07-10 06:44] LABS: Erythrocyte Sedimentation Rate 113 mm/hr (0-10)
--- NOTE | 2020-07-10 07:01 | PM.PN ---
Subjective Subjective: Interval history: feels better. still swollen and sob. had break in sterility overnight w/ PD- as needed to wait for converter piece. no n/v/f/c/blankenship/d Medications: Reviewed: Yes Medication Review Details: Current Medications Acetaminophen (Acetaminophen 325 Mg Tablet) 650 mg PO Q6H PRN PRN Reason: Mild/Mod Pain Or Temp >/= 101 Hydrocodone Bitart/Acetaminophen (Hydrocodone-Acetaminophen 5-325 Mg Tablet) 1 tab PO Q6H PRN PRN Reason: pain Bumetanide (Bumetanide 0.25 Mg/Ml Sdv 4 Ml) 1 mg IV Q12H LENNIE Last Admin: 07/09/20 22:18 Dose: 1 mg Documented by: Dextrose (Dextrose 50% Syringe 50 Ml) 25 ml IVP ONCE PRN; Protocol PRN Reason: hypoglycemia protocol Dextrose (Dextrose 50% Syringe 50 Ml) 50 ml IVP PRN PRN; Protocol PRN Reason: hypoglycemia protocol Gentamicin Sulfate (Gentamicin 0.1% Cream 15 Gm) 1 applic TOPICAL DAILY LENNIE Glucagon (Glucagon 1 Mg/Ml Inj 1 Ml) 1 mg IM ONCE PRN; Protocol PRN Reason: Adult Acute Hypoglycemia Prot. Heparin Sodium (Beef Lung) (Heparin 5,000 Unit/Ml Inj 1 Ml) 5,000 unit SUBCUT Q12H LENNIE Last Admin: 07/09/20 22:06 Dose: 5,000 unit Documented by: Ceftriaxone Sodium 1,000 mg/ (Sodium Chloride) 50 mls @ 100 mls/hr IV Q24H LENNIE; Protocol Last Infusion: 07/09/20 22:38 Dose: Infused Documented by: Dextrose (D5w) 500 mls @ 100 mls/hr IV ONCE PRN; Protocol PRN Reason: Adult Acute Hypoglycemia Prot Vancomycin/PEG/NADA/Lysine/Water (Vancocin) 1,250 mg in 250 mls @ 250 mls/hr IV Q48H LENNIE Insulin Aspart (Insulin Aspart 100 Unit/1 Ml) 0 unit SUBCUT TIDWM LENNIE; Protocol Last Admin: 07/09/20 22:12 Dose: Not Given Documented by: Insulin Glargine (Insulin Glargine 100 Units/1 Ml) 10 unit SUBCUT BEDTIME LENNIE Last Admin: 07/09/20 22:06 Dose: 10 unit Documented by: Levothyroxine Sodium (Levothyroxine 88 Mcg Tablet) 88 mcg PO DAILY LENNIE Metoprolol Tartrate (Metoprolol Tartrate 25 Mg Tablet) 12.5 mg PO BID [facility] Last Admin: 07/09/20 22:07 Dose: 12.5 mg Documented by: Multivitamins (E-Phnbwqb-Cddhryq C Tablet) 1 each PO DAILY [facility] Naloxone HCl (Naloxone 0.4 Mg/Ml Sdv) 0.1 mg IVP Q2M PRN PRN Reason: OPIATERV Ondansetron HCl (Ondansetron 2 Mg/Ml Sdv 2 Ml) 4 mg IVP Q8H PRN PRN Reason: vomiting, or N/V if npo Oxycodone/Acetaminophen (Oxycodone-Apap 5-325 Mg Tablet) 1 tab PO Q6H PRN PRN Reason: Pain Pantoprazole Sodium (Pantoprazole Dr 40 Mg Tablet) 40 mg PO BID [facility] Last Admin: 07/09/20 22:07 Dose: 40 mg Documented by: Peritoneal Dialysis Solution (Dianeal Low Ca W/1.5% Dex 2,000 Ml Bag) 2,000 ml INTRAPERIT 5XD [facility] Last Admin: 07/09/20 23:13 Dose: 2,000 ml Documented by: Peritoneal Dialysis Solution (Dianeal Low Ca W/1.5% Dex 2,000 Ml Bag) 2,000 ml INTRAPERIT BID@08,16 [facility] Peritoneal Dialysis Solution (Dianeal Low Ca W/2.5% Dex 2,000 Ml Bag) 2,000 ml INTRAPERIT TID [facility] Fluticasone/Salmeterol (Fluticasone-Salmeterol 250-50 Diskus) 1 puff INHALATION BID [facility] Vitals/I&O/Wt Last Vital Signs Temp 98.5 F 07/10/20 03:45 Pulse 89 07/10/20 03:45 Resp 18 07/10/20 03:45 BP 147/71 07/10/20 03:45 Pulse Ox 98 07/10/20 04:15 07/09/20 07/10/20 07/10/20 22:59 06:59 14:59 Intake Total 300 / 300 120 / 420 Output Total 475 / 475 Balance 300 / 300 -355 / -55 Weight last 48 hrs Weight 70.307 kg Physical Exam Narrative: EXAM NARRATIVE: VS noted comfortable in bed using NC 02 HEENT- nc/at, eomi, anicteric neck supple lungs -dull bases and crackles b/l heart reg, +SALINA abd soft, nt, nd, +BS, + Tenkoff catheter- non tender ext LLE less red and swollen. RLE remains w/ edema- non tender pulses weak DP and PT neuro- a,a, o x 3 mood normal exam by RN as telehealth visit Urinary Catheter Management^: Erwin: Cath Placed During This Visit: yes Reason for Continuing Indwelling Catheter: Other Urinary Catheter Date of Insertion: 07/09/20 Urinary Catheter Time of Insertion: 17:31 Data : 07/10/20 05:22 07/10/20 05:22 Micro: Microbiology 07/09/20 18:35 Blood Culture - Preliminary Blood SPECIMEN COLLECTED 07/09/20 16:18 Blood Culture - Preliminary Blood SPECIMEN COLLECTED A&P Additional A&P Information 65 yr old man 1. ESRD- cont PD- hospital only has CAPD- will do 5 exchanges a day- alt 2.5% w/ 1.5% gluc, low ca -check vanco level and redose if level <19 -pt had break in sterility- but on abx 2. Cellulitis- dose abx for ESRD on PD 3. DM care per medicine 4. gentle k repletion 5. hgb okay for ESRD 6. bone- minerla- metabolism of ESRD- check phos, pth 80- no vit d analouges 7. check tsh on levothyroxine hold norvasc to allow bp room for fluid removal -d/c na bicarb as on PD pt seen and examined w/ rN- telehealth visit Attestations Medical Necessity Statement*: cellulitis, esrd Time Spent in Patient Care: 16 - 35 minutes Coding Level of Care Code Acute Gis Database Administrator for Brynn Castro
[2020-07-10 07:08] LABS: Aspartate Amino Transferase 19 U/L (0-40); Blood Urea Nitrogen 47 mg/dL (8-23); Glomerular Filtration Rate 19.6 mL/min (90-130); Magnesium 1.4 mg/dL (1.7-2.3); Osmolality Calculated 296 mOsm/kg (285-295)
--- NOTE | 2020-07-10 07:31 | PC.NURSE ---
PD TUBING: THE PATIENT WAS ATTACHED TO THE DIALYSIS FLUID AT 2300. AT 0300, THE PATIENT WAS THEN DRAINED. WHEN THE DRAINING HAD FINISHED, IT WAS NOTED THAT THE CAP AVAILABLE WOULD NOT FIT THE PATIENT'S TUBING. THE PATIENT WAS THEN ASKED TO HOLD THE TUBING WITHOUT MAKING CONTACT WITH ANYTHING WHILE THIS NURSE FOUND AN ADAPTER. AN ADAPTER WAS LOCATED AND PLACED WITH ASEPTIC TECHNIQUE. UPON FURTHER INSPECTION, IT WAS SEEN THAT THERE WAS STILL AN ADAPTER NEEDED TO PROPERLY CONNECT TO THE FUENTES FLUIDS AT THIS FACILITY. THE BUDDER BRUSH PAINTER WAS NOTIFIED OF THE INCIDENT AND ORDERED LABS AND PLACED ORDER CHANGES TO MEDICATIONS IN THE PATIENT CHART. ALL PARTS ARE BEING LOCATED BEFORE NEXT DIALYSIS.
--- NOTE | 2020-07-10 09:45 | USCV_ITS ---
Helio Reynoso Age: 65 Gender: M : 1955 Exam Date: 07/10/2020 15:04 Ordering Phys: Arnaldo Samson MD Technologist: Beltran Rabago Exam Location[place] [facility] [place] Indication: POOR PULSES Risk Factors: Unknown Previous Vascular Surgery: None RIGHT LEFT BP: 140.0 / 70.00 BP: 130.0/ 68.00 0 0 Waveform Velocity (cm/s) Velocity (cm/s) Waveform Iliac Prox 0.0 Monophasic Iliac Mid 150.2 Monophasic Iliac Distal Monophasic 165.5 TIRE SHOP MANAGER 154.8 Monophasic SFA Prox 191.6 Monophasic SFA Mid 225.1 Monophasic SFA Dist 104.2 Monophasic POP 74.4 Monophasic INVESTMENT OFFICER 48.4 Monophasic DPA 35.1 Monophasic NICK 0.7 FINDINGS LT DPA 110 LT INVESTMENT OFFICER 100 Moderate to heavy heterogeneous diffuse plaques in the left iliac and femoral artery. Spectral broadening is noted throughout the iliac and femoral artery. Monophasic, continuous low velocity waveforms in the popliteal and infrapopliteal vessels. CONCLUSIONS Moderate to heavy diffuse plaques in the iliac and femoral arteries on the left side. Elevated velocity, suggestive of greater than 60% stenosis in the left distal superficial femoral artery. Features suggestive of collateral filling of the infrapopliteal vessels. No similar previous studies are available for comparison Dr Lam Murguia MD [facility] (Electronically Signed) Final Date: 11 Jul 2020 16:58 S
--- NOTE | 2020-07-10 10:48 | PC.CHAP ---
Pastoral Care Encounter/Spiritual Assessment Type of Contact [] Declined track liner operator visit [] Patient/Family/Request visit [] Outpatient visit [] Follow-up visit [] Physician referral [] Code/Alert [X] Routine visit [] Staff referral [] Actively dying [] Patient sleeping [] Family support [] [] Out of room [] Palliative care [] [] Receiving care in room [] Pre-surgical visit [] Trauma [] Long length of stay [] ICU visit [] Other: Relational/Emotional Strength [X] Patient feels connected with others/family/visitors/staff [] Distress [] Loneliness/isolation [] Abandonment Spirituality of Patient [X] Person of Bhavana [] Attends Zoroastrianism of their Bhavana [] Believes in Prayer [] Reads Bible or Synagogue materials [] There are Spiritual issues to be addressed Office Machine Installer Interventions [X] Prayer [X] Active listening [X] Non-anxious presence [X] Spiritual/emotional support [] Crisis/trauma care [] Spiritual counseling [] Bereavement support [] Provided bereavement packet [] Provided Bible/devotional materials [] Provided toy/stuffed animal, coloring book to patient or family member [] Provided Communion [] Anointing/Walker [] Salvation [X] Completed spiritual assessment [] Other: Impact on Illness or Injury [] Angry [] Fearful [] Anxious [] Often cries [] Exhaustion [] Unable to work [] Unable to attend restorationist [] Unable to walk/stand [] Unable to read [] Unable to drive [] Unable to eat/drink [] Unable to sleep [] Unable to be with family [] Patient intubated [] Other: Summary Time spent with patient 10 MIN
[2020-07-10] MEDS: b-complex-vitamin c Tablet 1 EACH PO (11:01)
[2020-07-10] MEDS: potassium chloride ER 20 mEq Tablet 40 MEQ PO (11:01)
[2020-07-10] MEDS: pantoprazole DR 40 mg Tablet PO ×2 (11:02→17:22)
[2020-07-10] MEDS: levothyroxine 88 mcg Tablet PO (11:02)
[2020-07-10] MEDS: metoprolol tartrate 25 mg Tablet 12.5 MG PO ×2 (11:02→17:22)
[2020-07-10] MEDS: bumetanide 0.25 mg/mL SDV 4 mL 1 MG IV ×2 (11:02→21:12)
[2020-07-10] MEDS: heparin 5,000 unit/mL INJ 1 mL 5000 UNIT SUBCUT ×2 (11:02→21:31)
[2020-07-10 11:13] LABS: Glucose Point of Care 193 mg/dL (70-110)
[2020-07-10] MEDS: vancomycin 1,000 MG in sodium chloride 0.9% 250 ML 250 MG IV (12:07)
[2020-07-10] MEDS: HYDROcodone-acetaminophen 5-325 mg Tablet 1 TAB PO (12:11)
--- NOTE | 2020-07-10 12:44 | PM.PN ---
Subjective Subjective: Interval history: Patient was seen this morning, he has no particular complaints, he tells me that he he has not had any fevers overnight, no nausea, no vomiting, tolerated peritoneal dialysis well overnight Vitals/I&O/Wt Last Vital Signs Temp 98.7 F 07/10/20 10:57 Pulse 92 07/10/20 10:57 Resp 18 07/10/20 10:57 BP 127/66 07/10/20 10:57 Pulse Ox 93 07/10/20 10:57 07/09/20 07/10/20 07/10/20 22:59 06:59 14:59 Intake Total 300 / 300 120 / 420 120 / 120 Output Total 475 / 475 Balance 300 / 300 -355 / -55 120 / 120 Weight last 48 hrs Weight 70.307 kg Physical Exam Const: COMMON NORMALS: no acute distress and patient oriented x3 GENERAL APPEARANCE: comfortable Eye: COMMON NORMALS: Equal, round and reactive pupils present PUPIL: Yes Equal, round and reactive pupils present Neck/C-Spine: COMMON NORMALS: no JVD Resp: COMMON NORMALS: normal respiratory effort, No retractions, No use of accessory muscles and clear to auscultation bilaterally AUSCULTATION: clear to auscultation bilaterally Cardio: COMMON NORMALS: no JVD, regular rate, regular rhythm, S1 normal heart sound present, S2 normal heart sound present, No gallops present (Cardio), No clicks present (Cardio) and No murmurs present (Cardio) RATE: regular rate RHYTHM: regular rhythm HEART SOUNDS: S1 normal heart sound present and S2 normal heart sound present GI: COMMON NORMALS: Normal to inspection, nondistended, normoactive bowel sounds present, Soft to palpation and non-tender PALPATION: Yes Soft to palpation Extremity: NARRATIVE EXTREMITY EXAM: Left lower extremity, area of warmth, redness, from mid eduardo down to distal eduardo, Left lower extremity, great toe, open sore, distal tip Neuro: COMMON NORMALS: patient oriented x3 Urinary Catheter Management^: Erwin: Cath Placed During This Visit: yes Reason for Continuing Indwelling Catheter: Other Urinary Catheter Date of Insertion: 07/09/20 Urinary Catheter Time of Insertion: 17:31 Data : 07/10/20 05:22 07/10/20 05:22 Micro: Microbiology 07/09/20 18:35 Blood Culture - Preliminary Blood SPECIMEN COLLECTED 07/09/20 16:18 Blood Culture - Preliminary Blood SPECIMEN COLLECTED A&P Assessment and plan (1) Left leg cellulitis: -Left eduardo -Left great toe -WBC 18.3, CRP 142 Plan -Admit to general medical floors -Broad-spectrum antibiotics vancomycin, Rocephin -Blood cultures -X-ray of tib-fib negative for osteomyelitis -We will consult wound care for right great toe -For now wound care -Monitor clinical status -Full code -Heparin for DVT prophylaxis Status: Acute (2) End stage renal disease: Have consulted nephrology for peritoneal dialysis Status: Acute (3) Secondary hyperparathyroidism: Status: Acute (4) Diastolic congestive heart failure: Does have bilateral 1+ pitting edema, advises me that he does urinate, is on Lasix 80 twice daily -Start Bumex 1 mg every 12 hours -For hypokalemia potassium 3.1, will give 40 mEq of Klor-Con Status: Acute (5) COPD (chronic obstructive pulmonary disease): Chronically on 2 L, not in exacerbation Status: Acute (6) Hypothyroidism: Status: Acute (7) Insulin dependent type 2 diabetes mellitus: Insulin sliding scale, home Lantus Status: Acute Attestations Medical Necessity Statement*: Patient requires hospitalization, inpatient, for cellulitis of left leg Coding Level of Care Code 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
[2020-07-10] MEDS: Dianeal low Ca w/2.5% dex 2,000 mL Bag 2000 ML INTRAPERIT (13:51)
[2020-07-10 17:21] LABS: Glucose Point of Care 185 mg/dL (70-110)
[2020-07-10] MEDS: Dianeal low Ca w/1.5% dex 2,000 mL Bag 2000 ML INTRAPERIT (19:25)
[2020-07-10 20:22] LABS: Glucose Point of Care 195 mg/dL (70-110)
[2020-07-10 20:38] LABS: Mononuclear #, Pertinoneal Fl 0.012 10^3/uL; Polynuclear # Cells, Perit 0.004 10^3/uL
[2020-07-10 20:50] LABS: Appearance, Peritoneal Fluid Clear (Clear); Color, Peritoneal Fluid Colorless (Pale Yellow); Pathology Referral Yes; RBC Pertioneal Fluid 0 10^3/uL; WBC Peritoneal Fluid 16 /uL
[2020-07-10] MEDS: insulin glargine 100 units/1 mL 10 UNIT SUBCUT (21:31)
[2020-07-10] MEDS: cefTRIAXone 1,000 MG in sodium chloride 0.9% (plus) 50 ML 100 MG IV (21:31)
[2020-07-11] VITALS (13 sets, daily range): BP systolic 124–152; BP diastolic 63–75; PULSE 79–93; RESP 14–18; TEMP 36.7–37.3; O2SAT 96–100
[2020-07-11] MEDS: Dianeal low Ca w/2.5% dex 2,000 mL Bag 2000 ML INTRAPERIT ×5 (00:31→21:04)
[2020-07-11 06:34] LABS: Basophils # 0.1 10^3/uL (0.0-0.1); Basophils % 0.6 %; Eosinophils # 0.1 10^3/uL (0.0-0.8); Eosinophils % 0.6 %; Hematocrit 36.6 % (42.0-52.0); Hemoglobin 10.8 g/dL (11.7-16.6); Lymphocytes # 1.6 10^3/uL (0.8-4.8); Lymphocytes % 8.7 %; Mean Corpuscular HGB Conc 29.5 g/dL (30.0-36.0); Mean Corpuscular Hemoglobin 32.3 pg (28.0-34.0); Mean Corpuscular Volume 109.6 fL (80-94); Mean Platelet Volume 9.8 fL (7.4-10.4); Monocytes # 1.2 10^3/uL (0.2-0.9); Monocytes % 6.7 %; Neutrophils # 15.15 10^3/uL (1.8-7.7); Neutrophils % 81.4 %; Nucleated Red Blood Cells % 0 %; Platelet Count 356 10^3/cmm (130-400); Red Blood Count 3.34 10^6/uL (4.1-5.3); Red Cell Distribution Width 16.9 % (12.1-15.1); White Blood Count 18.6 10^3/uL (4.0-10.0)
[2020-07-11 06:48] LABS: Glucose Point of Care 152 mg/dL (70-110)
[2020-07-11 06:54] LABS: Alanine Aminotransferase 25 U/L (0-41); Alkaline Phosphatase 109 IU/L (40-130); Blood Urea Nitrogen 39 mg/dL (8-23); Calcium 7.7 mg/dL (8.5-10.5); Carbon Dioxide 23 mmol/L (22-29); Chloride 100 mmol/L (98-107); Globulin 3.6 g/dL (1.3-4.6); Glomerular Filtration Rate 24.9 mL/min (90-130); Glucose 135 mg/dL (65-115); Magnesium 1.5 mg/dL (1.7-2.3); Osmolality Calculated 293 mOsm/kg (285-295); Phosphorus 3.2 mg/dL (2.5-4.5); Sodium 136 mmol/L (136-145); Total Bilirubin 0.2 mg/dL (0.15-1.2); Total Protein 5.6 g/dL (6.6-8.7)
[2020-07-11 06:56] LABS: Creatinine Clr Calc Pharmacy 27.7095
[2020-07-11 06:57] LABS: Anion Gap 17.2 (5-19); Potassium 4.2 mmol/L (3.5-5.1)
[2020-07-11 06:58] LABS: Aspartate Amino Transferase 24 U/L (0-40)
[2020-07-11 07:01] LABS: Procalcitonin 0.21 ng/mL (0-0.5)
--- NOTE | 2020-07-11 07:17 | PM.PN ---
Subjective Subjective: Interval history: feeling better. dec sob. Leg pain improving. no n/v/f/cp/blankenship Medications: Reviewed: Yes Medication Review Details: Current Medications Acetaminophen (Acetaminophen 325 Mg Tablet) 650 mg PO Q6H PRN PRN Reason: Mild/Mod Pain Or Temp >/= 101 Hydrocodone Bitart/Acetaminophen (Hydrocodone-Acetaminophen 5-325 Mg Tablet) 1 tab PO Q6H PRN PRN Reason: pain Last Admin: 07/10/20 12:11 Dose: 1 tab Documented by: Bumetanide (Bumetanide 0.25 Mg/Ml Sdv 4 Ml) 1 mg IV Q12H LENNIE Last Admin: 07/10/20 21:12 Dose: 1 mg Documented by: Dextrose (Dextrose 50% Syringe 50 Ml) 25 ml IVP ONCE PRN; Protocol PRN Reason: hypoglycemia protocol Dextrose (Dextrose 50% Syringe 50 Ml) 50 ml IVP PRN PRN; Protocol PRN Reason: hypoglycemia protocol Gentamicin Sulfate (Gentamicin 0.1% Cream 15 Gm) 1 applic TOPICAL DAILY [facility] Last Admin: 07/10/20 11:03 Dose: 1 applic Documented by: Glucagon (Glucagon 1 Mg/Ml Inj 1 Ml) 1 mg IM ONCE PRN; Protocol PRN Reason: Adult Acute Hypoglycemia Prot. Heparin Sodium (Beef Lung) (Heparin 5,000 Unit/Ml Inj 1 Ml) 5,000 unit SUBCUT Q12H [facility] Last Admin: 07/10/20 21:31 Dose: 5,000 unit Documented by: Ceftriaxone Sodium 1,000 mg/ (Sodium Chloride) 50 mls @ 100 mls/hr IV Q24H LENNIE; Protocol Last Infusion: 07/10/20 22:08 Dose: Infused Documented by: Dextrose (D5w) 500 mls @ 100 mls/hr IV ONCE PRN; Protocol PRN Reason: Adult Acute Hypoglycemia Prot Vancomycin HCl 1,000 mg/ (Sodium Chloride) 250 mls @ 250 mls/hr IV Q48H [facility] Insulin Aspart (Insulin Aspart 100 Unit/1 Ml) 0 unit SUBCUT TIDWM [facility]; Protocol Last Admin: 07/10/20 17:22 Dose: 4 unit Documented by: Insulin Glargine (Insulin Glargine 100 Units/1 Ml) 10 unit SUBCUT BEDTIME [facility] Last Admin: 07/10/20 21:31 Dose: 10 unit Documented by: Levothyroxine Sodium (Levothyroxine 88 Mcg Tablet) 88 mcg PO DAILY [facility] Last Admin: 07/10/20 11:02 Dose: 88 mcg Documented by: Metoprolol Tartrate (Metoprolol Tartrate 25 Mg Tablet) 12.5 mg PO BID [facility] Last Admin: 07/10/20 17:22 Dose: 12.5 mg Documented by: Multivitamins (B-Nikmbwf-Yilnsfw C Tablet) 1 each PO DAILY [facility] Last Admin: 07/10/20 11:01 Dose: 1 each Documented by: Naloxone HCl (Naloxone 0.4 Mg/Ml Sdv) 0.1 mg IVP Q2M PRN PRN Reason: OPIATERV Ondansetron HCl (Ondansetron 2 Mg/Ml Sdv 2 Ml) 4 mg IVP Q8H PRN PRN Reason: vomiting, or N/V if npo Oxycodone/Acetaminophen (Oxycodone-Apap 5-325 Mg Tablet) 1 tab PO Q6H PRN PRN Reason: Pain Pantoprazole Sodium (Pantoprazole Dr 40 Mg Tablet) 40 mg PO BID [facility] Last Admin: 07/10/20 17:22 Dose: 40 mg Documented by: Peritoneal Dialysis Solution (Dianeal Low Ca W/1.5% Dex 2,000 Ml Bag) 2,000 ml INTRAPERIT 0930,1915 [facility] Last Admin: 07/10/20 19:25 Dose: 2,000 ml Documented by: Peritoneal Dialysis Solution (Dianeal Low Ca W/2.5% Dex 2,000 Ml Bag) 2,000 ml INTRAPERIT 0000,[id number] [facility] Last Admin: 07/11/20 05:19 Dose: 2,000 ml Documented by: Fluticasone/Salmeterol (Fluticasone-Salmeterol 250-50 Diskus) 1 puff INHALATION BID [facility] Last Admin: 07/10/20 19:39 Dose: 1 puff Documented by: Vitals/I&O/Wt Last Vital Signs Temp 98.1 F 07/11/20 04:25 Pulse 93 07/11/20 06:00 Resp 18 07/11/20 04:25 BP 148/71 07/11/20 04:25 Pulse Ox 96 07/11/20 04:25 07/10/20 07/11/20 07/11/20 22:59 06:59 14:59 Intake Total 650 / 1260 Output Total 625 / 625 Balance 650 / 1260 -625 / 635 Weight last 48 hrs Weight 70.307 kg Physical Exam Narrative: EXAM NARRATIVE: VS noted comfortable in bed using NC 02 HEENT- nc/at, eomi, anicteric neck supple lungs -dull bases and crackles b/l heart reg, +SALINA abd soft, nt, nd, +BS, + Tenkoff catheter- non tender ext LLE less red and swollen. RLE remains w/ edema- non tender pulses weak DP and PT neuro- a,a, o x 3 mood normal exam by RN as telehealth visit Urinary Catheter Management^: Erwin: Cath Placed During This Visit: yes Reason for Continuing Indwelling Catheter: Other Urinary Catheter Date of Insertion: 07/09/20 Urinary Catheter Time of Insertion: 17:31 Data : 07/10/20 05:22 07/11/20 06:05 Micro: Microbiology 07/09/20 18:35 Blood Culture - Preliminary Blood NEGATIVE TO DATE 07/09/20 16:18 Blood Culture - Preliminary Blood NEGATIVE TO DATE A&P Additional A&P Information 65 yr old man 1. ESRD- cont PD- hospital only has CAPD- will do 5 exchanges a day- 2.5% gluc, low ca -check vanco level and redose if level <19 -pt had break in sterility on 07/10/20- but on abx -only 16 wbc 2. Cellulitis- dose abx for ESRD on PD 3. DM care per medicine 4. hgb okay for ESRD 5. replace magnesium 6. bone- mineral- metabolism of ESRD- check phos, pth 80- no vit d analouges -vit d level pending 7. normal tsh on levothyroxine 8. bicarb okay 9. 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
[2020-07-11 07:56] LABS: Slide Review Slide Review Perform
[2020-07-11 09:06] LABS: Vancomycin Random 24.7 ug/mL (20.0-40.0)
--- NOTE | 2020-07-11 09:54 | CT_ITS ---
WS: [id number] NONCONTRAST CT LEFT LOWER EXTREMITY. TECHNIQUE: Noncontrast CT left lower extremity. with coronal and sagittal reformatted images. CLINICAL INFORMATION: cellultis COMPARISON: None. DLP: 1123.[address] scans at [facility] use at least one of these dose optimization techniques: automat ed exposure control; mA and/or kV adjustment per patient size (includes targeted exams where dose is matched to clinical indication); or iterative reconstruction. FINDINGS: Postoperative changes plate and screw fixation distal tibial diaphysis. Hardware appears well seated. No evidence of hardware loosening. Evidence of prior healed fracture involving the distal fibula sha ft with callus formation. Soft tissue edema left lower leg consistent with cellulitis. No drainable abscess or fluid collection . No evidence of osteomyelitis. Vascular calcifications. Small suprapatellar knee effusion. Mild dege nerative arthritis ankle mortise. CT/CT lower leg LT wo con* [id number] IMPRESSION: 1. Evidence of left lower extremity cellulitis. No drainable abscess or fluid collection. 2. No evidence of osteomyelitis. 3. Prior postoperative changes plate and screw fixation distal tibial shaft. 4. Evidence of prior healed fracture distal fibula with callus formation.
[2020-07-11] MEDS: b-complex-vitamin c Tablet 1 EACH PO (10:22)
[2020-07-11] MEDS: pantoprazole DR 40 mg Tablet PO ×2 (10:22→18:05)
[2020-07-11] MEDS: levothyroxine 88 mcg Tablet PO (10:22)
[2020-07-11] MEDS: heparin 5,000 unit/mL INJ 1 mL 5000 UNIT SUBCUT ×2 (10:22→21:46)
[2020-07-11] MEDS: metoprolol tartrate 25 mg Tablet 12.5 MG PO ×2 (10:23→18:05)
[2020-07-11] MEDS: bumetanide 0.25 mg/mL SDV 4 mL 1 MG IV ×2 (10:23→22:07)
[2020-07-11 10:57] LABS: Glucose Point of Care 252 mg/dL (70-110)
--- NOTE | 2020-07-11 12:19 | PM.PN ---
Subjective Subjective: Interval history: Patient was seen this morning, he is working with physical therapy, he is doing well, no fevers, chills, no nausea, no vomiting, received PD last night, his area of erythema on the left lower extremity is little bit more extensive, but the swelling has improved Vitals/I&O/Wt Last Vital Signs Temp 98.9 F 07/11/20 11:46 Pulse 87 07/11/20 11:46 Resp 17 07/11/20 11:46 BP 152/75 07/11/20 11:46 Pulse Ox 96 07/11/20 11:46 07/10/20 07/11/20 07/11/20 22:59 06:59 14:59 Intake Total 650 / 1260 480 / 480 Output Total 625 / 625 Balance 650 / 1260 -625 / 635 480 / 480 Physical Exam Const: COMMON NORMALS: no acute distress and patient oriented x3 GENERAL APPEARANCE: cooperative and comfortable Resp: COMMON NORMALS: normal respiratory effort, No retractions, No use of accessory muscles and clear to auscultation bilaterally AUSCULTATION: clear to auscultation bilaterally Cardio: COMMON NORMALS: regular rate, regular rhythm, S1 normal heart sound present, S2 normal heart sound present, No gallops present (Cardio), No clicks present (Cardio) and No murmurs present (Cardio) RATE: regular rate RHYTHM: regular rhythm HEART SOUNDS: S1 normal heart sound present and S2 normal heart sound present GI: COMMON NORMALS: Normal to inspection, nondistended, normoactive bowel sounds present, Soft to palpation and non-tender PALPATION: Yes Soft to palpation Extremity: NARRATIVE EXTREMITY EXAM: Left lower extremity, area of warmth, redness, from mid eduardo down to distal eduardo, Left lower extremity, great toe, open sore, distal tip Neuro: COMMON NORMALS: patient oriented x3, CN's II-XII intact bilaterally and moves all extremities Urinary Catheter Management^: Erwin: Cath Placed During This Visit: yes Reason for Continuing Indwelling Catheter: Other Urinary Catheter Date of Insertion: 07/09/20 Urinary Catheter Time of Insertion: 17:31 Data : 07/11/20 06:05 07/11/20 06:05 Micro: Microbiology 07/10/20 19:47 Gram Stain - Final Peritoneal Fluid 07/09/20 18:35 Blood Culture - Preliminary Blood NEGATIVE TO DATE 07/09/20 16:18 Blood Culture - Preliminary Blood NEGATIVE TO DATE A&P Assessment and plan (1) Left leg cellulitis: -Left eduardo -Left great toe wrapped and bandaged, -WBC 18, CRP 142 Plan -Admit to general medical floors -Broad-spectrum antibiotics vancomycin, switched to Zosyn -Left lower extremity CT, arterial ultrasounds -Blood cultures so far unremarkable -X-ray of tib-fib negative for osteomyelitis -We will consult wound care for right great toe -For now wound care -Monitor clinical status -Full code -Heparin for DVT prophylaxis Status: Acute (2) End stage renal disease: Have consulted nephrology for peritoneal dialysis Status: Acute (3) Secondary hyperparathyroidism: Status: Acute (4) Diastolic congestive heart failure: Does have bilateral 1+ pitting edema, advises me that he does urinate, is on Lasix 80 twice daily -Start Bumex 1 mg every 12 hours -For hypokalemia potassium 3.1, will give 40 mEq of Klor-Con Status: Acute (5) COPD (chronic obstructive pulmonary disease): Chronically on 2 L, not in exacerbation Status: Acute (6) Hypothyroidism: Status: Acute (7) Insulin dependent type 2 diabetes mellitus: Insulin sliding scale, home Lantus Status: Acute Attestations Medical Necessity Statement*: Patient requires hospitalization for left lower extremity cellulitis, requiring IV antibiotics, Coding Level of Care Code 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
[2020-07-11] MEDS: piperacillin-tazobactam 3.375 GM in sodium chloride 0.9% (plus) 50 ML IV (14:03)
[2020-07-11] MEDS: HYDROcodone-acetaminophen 5-325 mg Tablet 1 TAB PO (14:03)
--- NOTE | 2020-07-11 16:37 | PC.RESP ---
PULMONARY REHAB INFORMATION SENT TO PATIENT.
[2020-07-11 17:15] LABS: Glucose Point of Care 213 mg/dL (70-110)
[2020-07-11] MEDS: oxyCODONE-APAP 5-325 mg Tablet 1 TAB PO (18:05)
[2020-07-11 20:27] LABS: Glucose Point of Care 290 mg/dL (70-110)
[2020-07-11] MEDS: insulin glargine 100 units/1 mL 10 UNIT SUBCUT (21:47)
[2020-07-12] VITALS (12 sets, daily range): BP systolic 116–161; BP diastolic 70–73; PULSE 81–95; RESP 16–18; TEMP 36.4–37.1; O2SAT 91–99
[2020-07-12] MEDS: Dianeal low Ca w/2.5% dex 2,000 mL Bag 2000 ML INTRAPERIT ×5 (01:24→20:13)
[2020-07-12] MEDS: piperacillin-tazobactam 3.375 GM in sodium chloride 0.9% (plus) 50 ML IV ×3 (01:28→21:48)
[2020-07-12 06:08] LABS: Basophils # 0.1 10^3/uL (0.0-0.1); Basophils % 0.5 %; Eosinophils # 0.2 10^3/uL (0.0-0.8); Eosinophils % 1.3 %; Hematocrit 34.2 % (42.0-52.0); Hemoglobin 10.6 g/dL (11.7-16.6); Lymphocytes # 1.4 10^3/uL (0.8-4.8); Lymphocytes % 8.5 %; Mean Corpuscular Volume 103.3 fL (80-94); Mean Platelet Volume 9.6 fL (7.4-10.4); Monocytes # 1.2 10^3/uL (0.2-0.9); Monocytes % 6.9 %; Neutrophils # 13.19 10^3/uL (1.8-7.7); Neutrophils % 79.5 %; Nucleated Red Blood Cells % 0 %; Platelet Count 511 10^3/cmm (130-400); Red Blood Count 3.31 10^6/uL (4.1-5.3); Red Cell Distribution Width 17.1 % (12.1-15.1); White Blood Count 16.6 10^3/uL (4.0-10.0)
[2020-07-12 06:11] LABS: Glucose Point of Care 248 mg/dL (70-110)
[2020-07-12 06:26] LABS: Alanine Aminotransferase 20 U/L (0-41); Albumin Level 2.4 g/dL (3.5-5.2); Alkaline Phosphatase 114 IU/L (40-130); Anion Gap 16.4 (5-19); Aspartate Amino Transferase 14 U/L (0-40); Blood Urea Nitrogen 42 mg/dL (8-23); Carbon Dioxide 27 mmol/L (22-29); Chloride 100 mmol/L (98-107); Globulin 3.4 g/dL (1.3-4.6); Glomerular Filtration Rate 22.9 mL/min (90-130); Glucose 223 mg/dL (65-115); Magnesium 1.7 mg/dL (1.7-2.3); Osmolality Calculated 307 mOsm/kg (285-295); Phosphorus 3.2 mg/dL (2.5-4.5); Potassium 3.4 mmol/L (3.5-5.1); Sodium 140 mmol/L (136-145); Total Bilirubin 0.2 mg/dL (0.15-1.2); Total Protein 5.8 g/dL (6.6-8.7)
[2020-07-12 06:30] LABS: Vancomycin Random 20.9 ug/mL (20.0-40.0)
[2020-07-12 06:33] LABS: Procalcitonin 0.24 ng/mL (0-0.5)
[2020-07-12] MEDS: vancomycin 1,000 MG in sodium chloride 0.9% 250 ML 250 MG IV (06:39)
[2020-07-12] MEDS: bumetanide 0.25 mg/mL SDV 4 mL 1 MG IV ×2 (08:53→20:35)
[2020-07-12] MEDS: metoprolol tartrate 25 mg Tablet 12.5 MG PO ×2 (08:53→18:34)
[2020-07-12] MEDS: b-complex-vitamin c Tablet 1 EACH PO (08:53)
[2020-07-12] MEDS: levothyroxine 88 mcg Tablet PO (08:53)
[2020-07-12] MEDS: heparin 5,000 unit/mL INJ 1 mL 5000 UNIT SUBCUT ×2 (08:54→20:13)
[2020-07-12] MEDS: pantoprazole DR 40 mg Tablet PO ×2 (10:46→18:34)
--- NOTE | 2020-07-12 10:55 | PM.PN ---
Subjective Subjective: Interval history: Mr. Reynoso is essentially doing well today. He still has significant discomfort in his lower extremity which remains relatively stable. Peritoneal dialysis is going well with painless and and outflow. The effluent is nice and clear, nonbloody or cloudy. Vitals/I&O/Wt Last Vital Signs Temp 97.6 F 07/12/20 08:00 Pulse 85 07/12/20 08:00 Resp 18 07/12/20 08:00 BP 161/73 07/12/20 08:00 Pulse Ox 99 07/12/20 08:00 07/11/20 07/12/20 07/12/20 22:59 06:59 14:59 Intake Total 530 / 1302 50 / 1352 Output Total 400 / 400 200 / 600 Balance 130 / 902 -150 / 752 Physical Exam Narrative: EXAM NARRATIVE: Constitutional: Awake, comfortable HEENT: Wet mucosa, no jvp, non icteric Lungs: Bilaterally clear without discernible wheeze, rales in all lung zones CVS: S1 S2, no murmurs Abdo: Soft, BS ok Ext 4: Minimal edema, peripheral perfusion with no cyanosis, LE cellulitis Neurological: Grossly non-focal Urinary Catheter Management^: Erwin: Cath Placed During This Visit: yes Reason for Continuing Indwelling Catheter: Other Urinary Catheter Date of Insertion: 07/09/20 Urinary Catheter Time of Insertion: 17:31 Data : 07/12/20 05:32 07/12/20 05:32 Micro: Microbiology 07/10/20 19:47 Gram Stain - Final Peritoneal Fluid A&P Additional A&P Information 1. ESRD Continue peritoneal dialysis with current prescription of 5 exchanges, 2 L, 2.5% solution. Strict ins and outs Dose medication for GFR less than 15 on PD. 2. Lower extremity cellulitis Cultures currently sent and pending, Topical gentamicin cream, vancomycin and Zosyn being administered. 3. Chemistry Slightly low potassium, will give 20 KCl otherwise chemistry looks well balanced. Corrected calcium within range. 4. Other chronic ESRD issues to be addressed as outpatient including secondary hyperparathyroidism, chronic anemia which is stable etc. Continue home medication. Meet Henley MD Nephrology [phone] Patient seen and examined via telemedicine, with the assistance of the bedside RN > 25 min spent in evaluation and mgmt of patient Attestations Medical Necessity Statement*: Eval for ESRD mgmt Coding Level of Care Code Acute Dishwasher Preparer for Brynn Castro
--- NOTE | 2020-07-12 11:41 | PM.PN ---
Subjective Subjective: Interval history: Patient was seen this morning, he has no complaints, no fevers, no chills, no nausea, vomiting, no diarrhea, Vitals/I&O/Wt Last Vital Signs Temp 97.6 F 07/12/20 08:00 Pulse 85 07/12/20 08:00 Resp 18 07/12/20 08:00 BP 161/73 07/12/20 08:00 Pulse Ox 99 07/12/20 08:00 07/11/20 07/12/20 07/12/20 22:59 06:59 14:59 Intake Total 530 / 1302 50 / 1352 Output Total 400 / 400 200 / 600 Balance 130 / 902 -150 / 752 Physical Exam Const: COMMON NORMALS: no acute distress and patient oriented x3 Resp: COMMON NORMALS: normal respiratory effort, No retractions, No use of accessory muscles and clear to auscultation bilaterally AUSCULTATION: clear to auscultation bilaterally Cardio: COMMON NORMALS: regular rate, regular rhythm, S1 normal heart sound present and S2 normal heart sound present RATE: regular rate RHYTHM: regular rhythm HEART SOUNDS: S1 normal heart sound present and S2 normal heart sound present GI: COMMON NORMALS: Normal to inspection, nondistended, normoactive bowel sounds present and Soft to palpation PALPATION: Yes Soft to palpation OTHER: PD catheter looks clean and dry, PD site looks clean and dry Extremity: COMMON NORMALS: no pedal edema OTHER: Left lower extremity cellulitis extending from just below the knee down to just above the ankle, improved Neuro: COMMON NORMALS: patient oriented x3 Psych: COMMON NORMALS: mental status grossly normal Urinary Catheter Management^: Erwin: Cath Placed During This Visit: yes Reason for Continuing Indwelling Catheter: Other Urinary Catheter Date of Insertion: 07/09/20 Urinary Catheter Time of Insertion: 17:31 Data : 07/12/20 05:32 07/12/20 05:32 Micro: Microbiology 07/10/20 19:47 Gram Stain - Final Peritoneal Fluid A&P Assessment and plan (1) Left leg cellulitis: -Left eduardo -Left great toe wrapped and bandaged, -WBC 16.6 Plan -Admit to general medical floors -Broad-spectrum antibiotics vancomycin, Zosyn -Left lower extremity CT shows cellulitis, no underlying abscess, no osteomyelitis, -arterial ultrasounds Moderate to heavy diffuse plaques in the iliac and femoral arteries on the left side. Elevated velocity, suggestive of greater than 60% stenosis in the left distal superficial femoral artery. Features suggestive of collateral filling of the infrapopliteal vessels. -I have consulted with Dr. Rios for consideration of vascular intervention, -Blood cultures so far unremarkable -We will consult wound care for right great toe -Bumex 1 mg IV every 12 hours for lower extremity edema, creatinine 2.8, urine output 600 -For now wound care -Monitor clinical status -Full code -Heparin for DVT prophylaxis Status: Acute (2) End stage renal disease: Have consulted nephrology for peritoneal dialysis Status: Acute (3) Secondary hyperparathyroidism: Status: Acute (4) Diastolic congestive heart failure: Does have bilateral 1+ pitting edema, advises me that he does urinate, is on Lasix 80 twice daily -Start Bumex 1 mg every 12 hours -For hypokalemia potassium 3.1, will give 40 mEq of Klor-Con Status: Acute (5) COPD (chronic obstructive pulmonary disease): Chronically on 2 L, not in exacerbation Status: Acute (6) Hypothyroidism: Status: Acute (7) Insulin dependent type 2 diabetes mellitus: Insulin sliding scale, home Lantus Status: Acute Attestations Medical Necessity Statement*: Patient requires hospitalization, for left leg cellulitis, with evidence of peripheral arterial disease Coding Level of Care Code Acute 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
[2020-07-12 12:03] LABS: Glucose Point of Care 225 mg/dL (70-110)
--- NOTE | 2020-07-12 12:09 | PC.SOCIAL ---
IMM Updated Updated pt on Pg 2 IMM. No questions voiced. Provided pt a copy. Signed, dated, & timed copy in chart.
[2020-07-12] MEDS: potassium chloride ER 20 mEq Tablet PO (12:46)
[2020-07-12] MEDS: oxyCODONE-APAP 5-325 mg Tablet 1 TAB PO (14:44)
--- NOTE | 2020-07-12 16:48 | PM.CONSULT ---
Providers/Reason For Consult Consulting Physican/Specialty*: Socrates Rios MD/ Cardiology Reason for Consult*: Peripheral artery disease Requesting Physcian: Dr Samson Attending Physician: Arnaldo Samson MD Primary Care Provider: Carla Ceballos MD History of Present Illness History of Present Illness Helio Reynoso is a 65 year old male with a past medical history of insulin-dependent type 2 diabetes mellitus, hypothyroidism, hypertension, CKD peritoneal dialysis, chronic pain, who presents to hospital due to complaints of left lower extremity pain and swelling for 1 week. According to patient he had noted swelling post a fall when he hit his leg. He is being treated for cellulitis. Cardiology was consulted as patient lower extremity doppler demonstrated significant stenosis of the left distal SFA. He also has a left great toe wound. On baseline patient was feeling lower extremity cramping on exertion. Review of Systems General: Reports: 10 or more systems reviewed and unremarkable except in HPI and below Meds/Allergies Home Medications and Allergies Home Medications Medication Instructions Recorded Confirmed Last Taken Type budesonide-formoterol [Symbicort] 2 puff INHALATION BID 03/15/19 07/09/20 07/09/20 History levothyroxine 88 mcg PO DAILY 03/15/19 07/09/20 07/09/20 History omega-3 fatty acids-fish oil [Fish 1 cap PO DAILY 03/15/19 07/09/20 07/09/20 History Oil] oxygen-air delivery systems #1 04/13/19 07/09/20 Unknown History RenaPlex-D 1 tab PO QPM 08/19/19 07/09/20 07/08/20 History pantoprazole 40 mg PO BID 30 Days #30 tab 10/27/19 07/09/20 07/09/20 Rx metoprolol tartrate 25 mg tablet 12.5 mg PO BID 02/27/20 07/09/20 07/09/20 History Lantus U-100 Insulin 10 unit SUBCUT BEDTIME 03/13/20 07/09/20 07/08/20 History amlodipine 5 mg PO DAILY 03/13/20 07/09/20 07/09/20 History B-complex with vitamin C 1 tab PO DAILY #30 tab 04/17/20 07/09/20 07/09/20 Rx furosemide 80 mg tablet 80 mg PO BID 06/03/20 07/09/20 07/09/20 History gentamicin 0.1 % topical cream 1 applic TOPICAL DAILY g 06/03/20 07/09/20 Unknown History oxycodone-acetaminophen 1 tab PO Q6H PRN 07/09/20 07/09/20 07/09/20 History sodium bicarbonate 650 mg PO BID 07/09/20 07/09/20 07/09/20 History amoxicillin-pot clavulanate 1 tab PO BID 7 Days #14 tab 07/13/20 Unknown Rx [Augmentin] aspirin 81 mg PO DAILY 30 Days #30 tab 07/13/20 Unknown Rx atorvastatin 40 mg PO QPM 30 Days #30 tab 07/13/20 Unknown Rx doxycycline hyclate 100 mg PO BID 7 Days #14 cap 07/13/20 Unknown Rx Allergies Allergy/AdvReac Type Severity Reaction Status Date / Time No Known Allergies Allergy Verified 07/09/20 12:10 Current Medications Current Medications Generic Name Dose Route Start Last Admin Trade Name Freq PRN Reason Stop Dose Admin Hydrocodone Bitart/Acetaminophen 1 tab 07/09/20 20:22 07/11/20 14:03 Hydrocodone-Acetaminophen 5-325 Mg Tablet PO 1 tab Q6H PRN Administration pain Bumetanide 1 mg 07/09/20 20:22 07/12/20 08:53 Bumetanide 0.25 Mg/Ml Sdv 4 Ml IV 1 mg Q12H LENNIE Administration Gentamicin Sulfate 1 applic 07/10/20 09:00 07/12/20 08:55 Gentamicin 0.1% Cream 15 Gm TOPICAL 1 applic DAILY LENNIE Administration Heparin Sodium (Beef Lung) 5,000 unit 07/09/20 20:22 07/12/20 08:54 Heparin 5,000 Unit/Ml Inj 1 Ml SUBCUT 5,000 unit Q12H LENNIE Administration Vancomycin HCl 1,000 mg/ 250 mls @ 250 mls/hr 07/12/20 07:00 07/12/20 15:23 Sodium Chloride IV Infused Q48H LENNIE Infusion Piperacillin Sod/Tazobactam 50 mls @ 12.5 mls/hr 07/11/20 10:00 07/12/20 15:23 Sod 3.375 gm/ Sodium Chloride IV Infused Q12H LENNIE Infusion Insulin Aspart 0 unit 07/09/20 20:22 07/12/20 12:46 Insulin Aspart 100 Unit/1 Ml SUBCUT 6 unit TIDWM LENNIE Administration Protocol Insulin Glargine 10 unit 07/09/20 21:00 07/11/20 21:47 Insulin Glargine 100 Units/1 Ml SUBCUT 10 unit BEDTIME LENNIE Administration Levothyroxine Sodium 88 mcg 07/10/20 09:00 07/12/20 08:53 Levothyroxine 88 Mcg Tablet PO 88 mcg DAILY LENNIE Administration Metoprolol Tartrate 12.5 mg 07/09/20 20:22 07/12/20 08:53 Metoprolol Tartrate 25 Mg Tablet PO 12.5 mg BID LENNIE Administration Multivitamins 1 each 07/10/20 09:00 07/12/20 08:53 E-Euczdms-Fgoytkk C Tablet PO 1 each DAILY LENNIE Administration Oxycodone/Acetaminophen 1 tab 07/09/20 20:22 07/12/20 14:44 Oxycodone-Apap 5-325 Mg Tablet PO 1 tab Q6H PRN Administration Pain Pantoprazole Sodium 40 mg 07/09/20 20:22 07/12/20 10:[address] 40 Mg Tablet PO 40 mg BID LENNIE Administration Peritoneal Dialysis Solution 2,000 ml 07/11/20 10:00 07/12/20 15:31 Dianeal Low Ca W/2.5% Dex 2,000 Ml Bag INTRAPERIT 2,000 ml 5XD LENNIE Administration Fluticasone/Salmeterol 1 puff 07/10/20 09:00 07/12/20 08:00 Fluticasone-Salmeterol 250-50 Diskus INHALATION Not Given BID LENNIE PFSH Acute PFSH: Medical History Altered mental status Blood transfusion abn reaction or complication, no procedure mishap Cataract disorder type 14 COPD (chronic obstructive pulmonary disease) Diastolic congestive heart failure ESRD (end stage renal disease) Hypertension Hypothyroidism Insulin dependent type 2 diabetes mellitus Iron deficiency anemia Nonalcoholic liver disease, chronic Secondary hyperparathyroidism Surgical History H/O esophagogastroduodenoscopy 2020 History of open reduction and internal fixation (ORIF) procedure Peritoneal dialysis catheter in place (03/14/20) S/P dialysis catheter insertion (08/30/19) Status post creation of arteriovenous fistula Family History Other CAD (coronary artery disease) Hyperlipidemia Hypertension Denies family history of Anesthesia complication Bleeding disorder Cancer Social History Smoking and tobacco status: former smoker Alcohol intake: never Household members: family and other Details: Lives with his mother Current occupational status: disabled History of recent travel: No Vitals/I&O/Wt Last Vital Signs Temp 97.8 F 07/12/20 15:37 Pulse 89 07/12/20 15:37 Resp 18 07/12/20 15:37 BP 134/70 07/12/20 15:37 Pulse Ox 98 07/12/20 15:37 07/12/20 07/12/20 07/12/20 06:59 14:59 22:59 Intake Total 50 / 1352 250 / 250 300 / 550 Output Total 200 / 600 Balance -150 / 752 250 / 250 300 / 550 Weight last 48 hrs Weight 155 lb Physical Exam Narrative: EXAM NARRATIVE: Const COMMON NORMALS: no acute distress GENERAL APPEARANCE: cooperative Neck/C-Spine COMMON NORMALS: no JVD Resp COMMON NORMALS: normal respiratory effort, No retractions, No use of accessory muscles and clear to auscultation bilaterally AUSCULTATION: clear to auscultation bilaterally Cardio COMMON NORMALS: no JVD, regular rate, regular rhythm, S1 normal heart sound present and S2 normal heart sound present RATE: regular rate RHYTHM: regular rhythm HEART SOUNDS: S1 normal heart sound present and S2 normal heart sound present GI COMMON NORMALS: Normal to inspection, nondistended, normoactive bowel sounds present, Soft to palpation and non-tender PALPATION: Yes Soft to palpation Extremity NARRATIVE EXTREMITY EXAM: Left lower extremity, cellulitis, left eduardo, significantly improved, left great toe, wrapped and bandaged Urinary Catheter Management^: Erwin: Cath Placed During This Visit: yes Reason for Continuing Indwelling Catheter: Other Urinary Catheter Date of Insertion: 07/09/20 Urinary Catheter Time of Insertion: 17:31 A&P Assessment and plan (1) Left leg cellulitis: Status: Acute (2) Diastolic congestive heart failure: Status: Acute Patient has left lower extremity cellulitis and evidence of significant peripheral artery disease on ultrasound of the left leg sepcifically significant stenosis in distal SFA. We will recommend managing conservatively at this time. Likely will need peripheral angiogram. Will see patient in office as outpatient and set up the angiogram Continue antibiotics as planned. Thank you for involving us with care of this patient. We will continue to follow. Please call with questions. Coding Level of Care Code Acute Registered Dietician for Brynn Castro Diagnoses Left leg cellulitis L03.116 Diastolic congestive heart failure I50.30
[2020-07-12 17:37] LABS: Glucose Point of Care 249 mg/dL (70-110)
[2020-07-12] MEDS: insulin glargine 100 units/1 mL 10 UNIT SUBCUT (20:13)
[2020-07-12 21:49] LABS: Glucose Point of Care 179 mg/dL (70-110)
[2020-07-13] VITALS (8 sets, daily range): BP systolic 138–150; BP diastolic 68–76; PULSE 69–98; RESP 14–18; TEMP 36.1–36.9; O2SAT 97–100
[2020-07-13] MEDS: HYDROcodone-acetaminophen 5-325 mg Tablet 1 TAB PO (01:03)
[2020-07-13] MEDS: Dianeal low Ca w/2.5% dex 2,000 mL Bag 2000 ML INTRAPERIT ×3 (01:04→11:44)
[2020-07-13] MEDS: acetaminophen 325 mg Tablet 650 MG PO (04:30)
[2020-07-13 06:15] LABS: Basophils # 0.1 10^3/uL (0.0-0.1); Basophils % 0.7 %; Eosinophils # 0.3 10^3/uL (0.0-0.8); Eosinophils % 1.6 %; Hemoglobin 10.2 g/dL (11.7-16.6); Lymphocytes # 1.8 10^3/uL (0.8-4.8); Lymphocytes % 10.9 %; Mean Corpuscular HGB Conc 30.9 g/dL (30.0-36.0); Mean Corpuscular Hemoglobin 31.6 pg (28.0-34.0); Mean Corpuscular Volume 102.2 fL (80-94); Mean Platelet Volume 9.2 fL (7.4-10.4); Monocytes # 1.4 10^3/uL (0.2-0.9); Monocytes % 8.4 %; Neutrophils # 12.43 10^3/uL (1.8-7.7); Neutrophils % 74.7 %; Nucleated Red Blood Cells % 0 %; Platelet Count 547 10^3/cmm (130-400); Red Blood Count 3.23 10^6/uL (4.1-5.3); Red Cell Distribution Width 16.5 % (12.1-15.1); White Blood Count 16.6 10^3/uL (4.0-10.0)
[2020-07-13 06:24] LABS: Glucose Point of Care 175 mg/dL (70-110)
[2020-07-13 06:43] LABS: Alanine Aminotransferase 19 U/L (0-41); Albumin Level 2.2 g/dL (3.5-5.2); Alkaline Phosphatase 124 IU/L (40-130); Anion Gap 13.5 (5-19); Aspartate Amino Transferase 16 U/L (0-40); Blood Urea Nitrogen 46 mg/dL (8-23); Calcium 7.8 mg/dL (8.5-10.5); Carbon Dioxide 29 mmol/L (22-29); Chloride 98 mmol/L (98-107); Globulin 3.4 g/dL (1.3-4.6); Glomerular Filtration Rate 21.1 mL/min (90-130); Glucose 179 mg/dL (65-115); Magnesium 1.5 mg/dL (1.7-2.3); Osmolality Calculated 300 mOsm/kg (285-295); Phosphorus 2.9 mg/dL (2.5-4.5); Potassium 3.5 mmol/L (3.5-5.1); Sodium 137 mmol/L (136-145); Total Bilirubin 0.2 mg/dL (0.15-1.2); Total Protein 5.6 g/dL (6.6-8.7)
--- NOTE | 2020-07-13 07:08 | PM.PN ---
Subjective Subjective: Interval history: Mr. Reynoso is essentially doing well today, not much has changes since yesterday Peritoneal dialysis is going well with painless and and outflow. The effluent is nice and clear, nonbloody or cloudy. Vitals/I&O/Wt Last Vital Signs Temp 97.4 F L 07/13/20 04:00 Pulse 83 07/13/20 04:00 Resp 18 07/13/20 04:00 BP 138/75 07/13/20 04:00 Pulse Ox 100 07/13/20 04:00 07/12/20 07/13/20 07/13/20 22:59 06:59 14:59 Intake Total 780 / 1030 200 / 1230 Output Total 300 / 300 Balance 480 / 730 200 / 930 Weight last 48 hrs Weight 70.307 kg Weight 70.307 kg Physical Exam Narrative: EXAM NARRATIVE: Constitutional: Awake, comfortable HEENT: Wet mucosa, no jvp, non icteric Lungs: Bilaterally clear without discernible wheeze, rales in all lung zones CVS: S1 S2, no murmurs Abdo: Soft, BS ok Ext 4: Minimal edema, peripheral perfusion with no cyanosis, LE cellulitis Neurological: Grossly non-focal Urinary Catheter Management^: Erwin: Cath Placed During This Visit: yes Reason for Continuing Indwelling Catheter: Other Urinary Catheter Date of Insertion: 07/09/20 Urinary Catheter Time of Insertion: 17:31 Data : 07/13/20 06:00 07/13/20 06:00 A&P Additional A&P Information 1. ESRD Continue peritoneal dialysis with current prescription of 5 exchanges, 2 L, 2.5% solution. Strict ins and outs Dose medication for GFR less than 15 on PD. 2. Lower extremity cellulitis Cultures currently sent and pending, Topical gentamicin cream, vancomycin and Zosyn being administered. 3. Chemistry Slightly low potassium, will give 20 KCl otherwise chemistry looks well balanced. Corrected calcium within range. 4. Other chronic ESRD issues to be addressed as outpatient including secondary hyperparathyroidism, chronic anemia which is stable etc. Continue home medication. Meet Henley MD Nephrology [phone] Patient seen and examined via telemedicine, with the assistance of the bedside RN > 25 min spent in evaluation and mgmt of patient Attestations Medical Necessity Statement*: Mgmt of PD Coding Level of Care Code Acute Finisher Screwdown for Chg Matthew
[2020-07-13] MEDS: heparin 5,000 unit/mL INJ 1 mL 5000 UNIT SUBCUT (09:26)
[2020-07-13] MEDS: levothyroxine 88 mcg Tablet PO (09:27)
[2020-07-13] MEDS: b-complex-vitamin c Tablet 1 EACH PO (09:27)
[2020-07-13] MEDS: potassium chloride ER 20 mEq Tablet 40 MEQ PO (09:27)
[2020-07-13] MEDS: oxyCODONE-APAP 5-325 mg Tablet 1 TAB PO (09:27)
[2020-07-13] MEDS: metoprolol tartrate 25 mg Tablet 12.5 MG PO (09:27)
[2020-07-13] MEDS: pantoprazole DR 40 mg Tablet PO (09:27)
--- NOTE | 2020-07-13 10:51 | PM.DCS ---
Discharge Providers Date of Admission: 07/09/20 17:21 Date of Discharge: July 13, 2020 Attending Provider at Admission: Arnaldo Samson MD Attending Provider at Discharge: Arnaldo Samson MD Primary Care Provider: Carla Ceballos MD Diagnoses at Discharge Discharge Diagnosis (1) Left leg cellulitis: Status: Acute (2) End stage renal disease: Status: Acute (3) Secondary hyperparathyroidism: Status: Acute (4) Diastolic congestive heart failure: Status: Acute (5) COPD (chronic obstructive pulmonary disease): Status: Acute (6) Hypothyroidism: Status: Acute (7) Insulin dependent type 2 diabetes mellitus: Status: Acute Reason for Visit Reason for Visit: L LEG PAIN/ REDNESS AND SWELLING Hospital Course Hospital Course Helio Reynoso is a 65 year old male with a past medical history of insulin-dependent type 2 diabetes mellitus, hypothyroidism, hypertension, CKD peritoneal dialysis, chronic pain, who presents to [facility] due to complaints of left lower extremity pain, swelling, for 1 week. Patient was admitted for left leg cellulitis: -Left eduardo -Left great toe -Received broad-spectrum antibiotics vancomycin, Zosyn, had slow clinical progress but clinically improved, discharged on Doxy and Augmentin -Venous ultrasound negative for DVT -Left lower extremity CT showed cellulitis, no underlying abscess, no osteomyelitis, -arterial ultrasounds Moderate to heavy diffuse plaques in the iliac and femoral arteries on the left side. Elevated velocity, suggestive of greater than 60% stenosis in the left distal superficial femoral artery. Features suggestive of collateral filling of the infrapopliteal vessels. -I have consulted with Dr. Rios for consideration of vascular intervention, will perform peripheral angiogram as outpatient, discharged on aspirin, statin -Blood cultures so far unremarkable -For left great toe, patient had to be debriding the area of cellulitis with help of family numbers, Dr. Campos saw patient, follow-up wound care -Patient did have bilateral extremity edema secondary to fluid overload he received Bumex as inpatient, clinical improved, discharged on home Lasix Physical Exam Const: COMMON NORMALS: no acute distress GENERAL APPEARANCE: cooperative Neck/C-Spine: COMMON NORMALS: no JVD Resp: COMMON NORMALS: normal respiratory effort, No retractions, No use of accessory muscles and clear to auscultation bilaterally AUSCULTATION: clear to auscultation bilaterally Cardio: COMMON NORMALS: no JVD, regular rate, regular rhythm, S1 normal heart sound present and S2 normal heart sound present RATE: regular rate RHYTHM: regular rhythm HEART SOUNDS: S1 normal heart sound present and S2 normal heart sound present GI: COMMON NORMALS: Normal to inspection, nondistended, normoactive bowel sounds present, Soft to palpation and non-tender PALPATION: Yes Soft to palpation OTHER: PD site looks clean and dry Extremity: NARRATIVE EXTREMITY EXAM: Left lower extremity, cellulitis, left eduardo, significantly improved, left great toe, wrapped and bandaged Urinary Catheter Management^: Erwin: Cath Placed During This Visit: yes Reason for Continuing Indwelling Catheter: Other Urinary Catheter Date of Insertion: 07/09/20 Urinary Catheter Time of Insertion: 17:31 Discharge Data Data Completed and Pending: Completed Studies During Hospitalization Category Date Time Status CT lower leg LT w o con* [id number] Routi ne Cat Scan 07/11/20 09:54 Completed XR chest 1V franki ble [id number] Stat Exams 07/09/20 15:32 Completed XR tibia fibula L T 2V [id number] Stat Exams 07/09/20 18:08 Completed XR tibia fibula R T 2V [id number] Stat Exams 07/09/20 17:47 [place] [address] Rout ine Ultrasound 07/10/20 09:45 [place] [id number] Stat Ultrasound 07/09/20 12:31 Completed Pending at discharge Category Date Time Status Blood Culture Sta t Lab 07/09/20 18:35 Results Body Fluid Cultur e & GS Routine Lab 07/10/20 19:47 Results Complete Blood Co unt w/Auto AM LABS Lab 07/14/20 04:00 Ordered Complete Blood Co unt w/Auto AM LABS Lab 07/15/20 04:00 Ordered Comprehensive Met abolic Panel AM LA BS Lab 07/14/20 04:00 Ordered Comprehensive Met abolic Panel AM LA BS Lab 07/15/20 04:00 Ordered Magnesium AM LABS Lab 07/14/20 04:00 Ordered Magnesium AM LABS Lab 07/15/20 04:00 Ordered Phosphorus AM LAB S Lab 07/14/20 04:00 Ordered Phosphorus AM LAB S Lab 07/15/20 04:00 Ordered Vitamin D 1,25 Di hydroxy AM LABS Lab 07/10/20 05:22 Received Labs from last 24 hours 0507/13/20 07/13/20 06:17 06:00 06:00 WBC 16.6 H RBC 3.23 L Hgb 10.2 L Hct 33.0 L MCV 102.2 H MCH 31.6 MCHC 30.9 RDW 16.5 H Plt Count 547 H MPV 9.2 Neut % (Auto) 74.7 Lymph % (Auto) 10.9 [place] % (Auto) 8.4 Eos % (Auto) 1.6 Baso % (Auto) 0.7 Neut # (Auto) 12.43 H Lymph # (Auto) 1.8 [place] # (Auto) 1.4 H Eos # (Auto) 0.3 Baso # (Auto) 0.1 Nucleated RBC % (a uto) 0 Nucleated RBCs # 0.0 Sodium 137 Potassium 3.5 Chloride 98 Carbon Dioxide 29 Anion Gap 13.5 BUN 46 H Creatinine 3.0 H GFR Calculation 21.1 L Glucose 179 H POC Glucose 175 H Calculated Osmolal ity 300 H Calcium 7.8 L Phosphorus 2.9 Magnesium 1.5 L Total Bilirubin 0.2 AST 16 ALT 19 Alkaline Phosphata se 124 Total Protein 5.6 L Albumin 2.2 L Globulin 3.4 07/12/20 07/12/20 07/12/20 21:44 17:33 11:44 WBC RBC Hgb Hct MCV MCH MCHC RDW Plt Count MPV Neut % (Auto) Lymph % (Auto) [place] % (Auto) Eos % (Auto) Baso % (Auto) Neut # (Auto) Lymph # (Auto) [place] # (Auto) Eos # (Auto) Baso # (Auto) Nucleated RBC % (a uto) Nucleated RBCs # Sodium Potassium Chloride Carbon Dioxide Anion Gap BUN Creatinine GFR Calculation Glucose POC Glucose 179 H 249 H 225 H Calculated Osmolal ity Calcium Phosphorus Magnesium Total Bilirubin AST ALT Alkaline Phosphata se Total Protein Albumin Globulin Vitals: Last Vital Signs Temp 96.9 F L 07/13/20 07:43 Pulse 98 07/13/20 07:58 Resp 16 07/13/20 09:27 BP 145/68 07/13/20 07:43 Pulse Ox 97 07/13/20 09:27 Discharge Plan Discharge Patient Disposition: Home Condition: Stable Prescriptions: New Augmentin 500-125 mg tablet 1 tab PO BID 7 Days Qty: 14 RF: 0 doxycycline hyclate 100 mg capsule 100 mg PO BID 7 Days Qty: 14 RF: 0 aspirin 81 mg tablet,delayed release (DR/EC) 81 mg PO DAILY 30 Days Qty: 30 RF: 0 atorvastatin 40 mg tablet 40 mg PO QPM 30 Days Qty: 30 RF: 0 Continued (DME) oxygen-air delivery systems Device See Rx Instructions .ROUTE .MEDSUPPLY Qty: 1 RF: 0 metoprolol tartrate 25 mg tablet 12.5 mg PO BID RF: 0 furosemide 80 mg tablet 80 mg PO BID RF: 0 gentamicin 0.1 % cream 1 applic topical DAILY RF: 0 levothyroxine 88 mcg tablet 88 mcg PO DAILY RF: 0 budesonide-formoterol [Symbicort] 160-4.5 mcg/actuation HFA aerosol inhaler 2 puff INHALATION BID RF: 0 omega-3 fatty acids-fish oil [Fish Oil] 360-1,200 mg capsule 1 cap PO DAILY RF: 0 oxycodone-acetaminophen 5-325 mg Tablet 1 tab PO Q6H PRN (Reason: Pain) RF: 0 sodium bicarbonate 650 mg Tablet 650 mg PO BID RF: 0 RenaPlex-D 800 mcg-12.5 mg -2,000 unit tablet 1 tab PO QPM RF: 0 pantoprazole 40 mg Tablet,Delayed Release (Dr/Ec) 40 mg PO BID 30 Days Qty: 30 RF: 0 Lantus U-100 Insulin 100 unit/mL solution 10 unit SUBCUT BEDTIME RF: 0 amlodipine 5 mg Tablet 5 mg PO DAILY RF: 0 B-complex with vitamin C Tablet 1 tab PO DAILY Qty: 30 RF: 0 Discontinued doxycycline hyclate 100 mg Capsule 100 mg PO BID RF: 0 Discharge Orders: Discharge Order (Routine); Ordered 07/13/20 Ordered By: Arnaldo Samson Referrals: [facility] [Outside] Socrates Rois M.D [Physician] - 1 week ([facility] will call you Wednesday to set up an appointment.) [facility], [Staff Physician] - 1 week (left great toe [facility] will be calling you to set up an appointment. ) Discharge Diet: Cardiac Discharge Activity: Resume usual activity Patient Instructions: Cellulitis, Doxycycline (By mouth), Amoxicillin/Clavulanate Potassium (By mouth), Atorvastatin (By mouth), Opioid Safety Activity Restrictions/Additional Instructions: -Continue antibiotics for the neck 7 days -Please monitor left lower extremity cellulitis -Follow-up with Dr. Rios, for peripheral arterial disease -Follow-up with wound care -Avoid self debridement Discharge Attestations Time Spent in Discharge Care*: less than 30 min Quality Metrics Clinical Quality Measures During this hospital stay, did patient experience: None Coding Level of Care Code Acute g [facility] note Exam Detailed Diagnoses Left leg cellulitis L03.116 End stage renal disease N18.6 Secondary hyperparathyroidism N25.81 Diastolic congestive heart failure I50.30 COPD (chronic obstructive pulmonary disease) J44.9 Hypothyroidism E03.9 Insulin dependent type 2 diabetes mellitus E11.9; Z79.4
--- NOTE | 2020-07-13 11:30 | P.PN_ITS ---
Subjective Subjective: Interval history: Patient is doing well. Has some discomfort on ambulation in the left lower extremity Vitals/I&O/Wt Last Vital Signs Temp 96.9 F L 07/13/20 07:43 Pulse 98 07/13/20 07:58 Resp 16 07/13/20 09:27 BP 145/68 07/13/20 07:43 Pulse Ox 97 07/13/20 09:27 07/12/20 07/13/20 07/13/20 22:59 06:59 14:59 Intake Total 780 / 1030 200 / 1230 360 / 360 Output Total 300 / 300 Balance 480 / 730 200 / 930 360 / 360 Weight last 48 hrs Weight 155 lb Weight 155 lb Physical Exam Narrative: EXAM NARRATIVE: EXAM NARRATIVE: Const COMMON NORMALS: no acute distress GENERAL APPEARANCE: cooperative Neck/C-Spine COMMON NORMALS: no JVD Resp COMMON NORMALS: normal respiratory effort, No retractions, No use of accessory muscles and clear to auscultation bilaterally AUSCULTATION: clear to auscultation bilaterally Cardio COMMON NORMALS: no JVD, regular rate, regular rhythm, S1 normal heart sound present and S2 normal heart sound present RATE: regular rate RHYTHM: regular rhythm HEART SOUNDS: S1 normal heart sound present and S2 normal heart sound present GI COMMON NORMALS: Normal to inspection, nondistended, normoactive bowel sounds present, Soft to palpation and non-tender PALPATION: Yes Soft to palpation Extremity NARRATIVE EXTREMITY EXAM: Left lower extremity, cellulitis, left eduardo, signif icantly improved, left great toe, wrapped and bandaged Urinary Catheter Management^: Erwin: Cath Placed During This Visit: yes Reason for Continuing Indwelling Catheter: Other Urinary Catheter Date of Insertion: 07/09/20 Urinary Catheter Time of Insertion: 17:31 Data : 07/13/20 06:00 07/13/20 06:00 A&P Assessment and plan (1) Left leg cellulitis: Status: Acute (2) Diastolic congestive heart failure: Status: Acute Patient has left lower extremity cellulitis and evidence of significant peripheral artery disease on ultrasound of the left leg sepcifically significant stenosis in distal SFA. We will recommend managing conservatively at this time. Likely will need peripheral angiogram. Will see patient in office as outpatient and set up the angiogram. Exam unchanged from yesterday Continue antibiotics as planned. Thank you for involving us with care of this patient. Patient is stable to be discharged from cardiology standpoint. Please call with questions. Attestations Medical Necessity Statement*: Care expected to cross 2 midnights. Coding Level of Care Code Acute Air Brake Mechanic for Brynn Castro Diagnoses Left leg cellulitis L03.116 Diastolic congestive heart failure I50.30
[2020-07-13 11:57] LABS: Glucose Point of Care 232 mg/dL (70-110)
--- NOTE | 2020-07-13 16:26 | PC.NURSE ---
PT HAS DONE WELL FOR ME TODAY. PT HAD SOME COMPLAINTS OF PAIN FIRST THING THIS MORNING BUT WAS TREATED WITH OXYCODONE. PT LOST IV ACCESS EARLY THIS MORNING. DR. CARLOS WAS OK WITH THE IV BEING LEFT OUT, SO A NEW IV WAS NEVER STARTED. PT HAS BEEN UP WITH THERAPY TODAY AND DID DECENT WITH THEM. PT RECEIVED ONE ROUND OF DIALYSIS TODAY ON MY SHIFT. PT NEEDED TO BE DRAINED BEFORE DISCHARGING FROM THE HOSPITAL BUT REFUSED TO LET THIS NURSE DRAIN HIM, HE INSISTED ON DOING IT AT HOME. THIS NURSE TRIED TO EXPLAIN THE IMPORTANCE OF LETTING ME DRAIN HIM BUT HE STILL WOULD NOT LET ME. DISCHARGE PAPERWORK WAS GONE OVER WITH PT AND ALL QUESTIONS WERE ANSWERED. MEDICATIONS WERE DONE [id number]. PT WAS ASSISTED BY THIS NURSE INTO HIS CHANGE OF CLOTHES. THIS NURSE THEN WHEELED THE PT OUT OF THE HOSPITAL. PT SAFELY DISCHARGED AT 1607.
[2020-07-17 22:32] LABS: Vit D 1,25 (Oh)2, Total 18 pg/mL (18-72); Vit D2 1,25 (Oh)2 <8 pg/mL; Vit D3 1,25 (Oh)2 18 pg/mL
== END 2020-07-13 16:07 | disposition home health service (06) | DRG 602 ==
LOC: ER 14:27 → MEDSURG 18:57
PROVIDERS: Family Medicine; Internal Medicine Nephrology; Admitting Provider Family Medicine; Emergency Provider Family Medicine; PCP Internal Medicine; Visit Provider Family Medicine
DX: L03.116 Cellulitis of left lower limb (principal); N18.6 End stage renal disease; I50.33 Acute on chronic diastolic (congestive) heart failure; I13.2 Hypertensive heart and chronic kidney disease with heart failure and with stage 5 chronic kidney disease, or end stage renal disease; N25.81 Secondary hyperparathyroidism of renal origin; E11.22 Type 2 diabetes mellitus with diabetic chronic kidney disease; Z99.2 Dependence on renal dialysis; E03.9 Hypothyroidism, unspecified; G89.29 Other chronic pain; J44.9 Chronic obstructive pulmonary disease, unspecified; D50.9 Iron deficiency anemia, unspecified; K76.9 Liver disease, unspecified; Z87.891 Personal history of nicotine dependence; E87.6 Hypokalemia; Z99.81 Dependence on supplemental oxygen; Z91.81 History of falling; Z79.891 Long term (current) use of opiate analgesic; Z79.4 Long term (current) use of insulin
CPT/HCPCS: 36415; 36416; 51702; 71045; 73590; 73700; 80053; 80202; 80500; 82310; 82652; 82962; 83605; 83735; 83880; 83970; 84100; 84145; 84443; 85025; 85651; 86140; 87040; 87070; 87075; 87205; 89050; 90935; 93926; 93971; 94640; 94664; 96365; 96372; 97162; 97166; 97530; 97535; 99285; J0696; J1644; J1815 ×2; J2543; J3370; J3475; J3490; J7050; Q3014

== ENCOUNTER 2020-07-16 08:10 | Outpatient (CLI) | payer MEDICARE, MEDICAID, SELFPAY | END 2020-07-16 08:11 | disposition home or self-care (01) | LOC: WOUND 08:12 | PROVIDERS: PCP Internal Medicine; Visit Provider Nurse Practitioner Family | DX: E11.621 Type 2 diabetes mellitus with foot ulcer (principal); L97.529 Non-pressure chronic ulcer of other part of left foot with unspecified severity; S51.012A Laceration without foreign body of left elbow, initial encounter; S81.011A Laceration without foreign body, right knee, initial encounter; X58.XXXA Exposure to other specified factors, initial encounter | CPT/HCPCS: 99215 ==

== ENCOUNTER 2020-07-23 13:01 | Outpatient (CLI) | payer MEDICARE, MEDICAID, SELFPAY | END 2020-07-23 13:02 | disposition home or self-care (01) | LOC: WOUND 13:03 | PROVIDERS: PCP Internal Medicine; Visit Provider Thoracic Surgery (Cardiothoracic Vascular Surgery) | DX: E11.621 Type 2 diabetes mellitus with foot ulcer (principal); L97.529 Non-pressure chronic ulcer of other part of left foot with unspecified severity; L98.492 Non-pressure chronic ulcer of skin of other sites with fat layer exposed; L97.812 Non-pressure chronic ulcer of other part of right lower leg with fat layer exposed | CPT/HCPCS: 11042; 11045; 97597 ==

== ENCOUNTER 2020-07-30 10:58 | Outpatient (CLI) | payer MEDICARE, MEDICAID, SELFPAY | END 2020-07-30 10:59 | disposition home or self-care (01) | LOC: WOUND 10:59 | PROVIDERS: PCP Internal Medicine; Visit Provider Thoracic Surgery (Cardiothoracic Vascular Surgery) | DX: E11.621 Type 2 diabetes mellitus with foot ulcer (principal); L97.522 Non-pressure chronic ulcer of other part of left foot with fat layer exposed | CPT/HCPCS: 11042; 11045 ==

== ENCOUNTER → 2020-08-05 10:08 | Outpatient (BNVA) | payer MEDICARE, MEDICAID, SELFPAY | PROVIDERS: PCP Internal Medicine; Referring Provider Internal Medicine; Visit Provider Internal Medicine | DX: I70.229 Atherosclerosis of native arteries of extremities with rest pain, unspecified extremity (principal); Z01.818 Encounter for other preprocedural examination; Z20.822 Contact with and (suspected) exposure to COVID-19 | CPT/HCPCS: 80048; 85025; 85610; 87635 ==

== ENCOUNTER 2020-08-06 09:57 | Outpatient (CLI) | payer MEDICARE, MEDICAID, SELFPAY | END 2020-08-06 09:58 | disposition home or self-care (01) | LOC: WOUND 09:59 | PROVIDERS: PCP Internal Medicine; Visit Provider Thoracic Surgery (Cardiothoracic Vascular Surgery) | DX: E11.621 Type 2 diabetes mellitus with foot ulcer (principal); L97.529 Non-pressure chronic ulcer of other part of left foot with unspecified severity | CPT/HCPCS: 99212 ==

== ENCOUNTER 2020-08-07 11:45 | Observation (INO) | payer MEDICARE, MEDICAID, SELFPAY ==
[2020-08-07] VITALS (41 sets, daily range): BP systolic 106–166; BP diastolic 57–102; PULSE 85–108; RESP 10–29; TEMP 36.6–36.8; O2SAT 90–100; BMI 22.8
--- NOTE | 2020-08-07 07:30 | XACV_ITS ---
Wt: 68 kg BSA: 1.81 m2 Any Known Allergies: No known allergies Gender: Male : 1955 Exam Type: Invasive Peripheral Vascular Procedure(s): Procedure Description: Peripheral Cath Diagnostic Procedure Procedure Description: Abdominal aortic angiography Procedure Description: Lower extremities' angiography Procedure Description: Orbital arthrectomy Procedure Description: Balloon angioplasty of the left SFA Exam Priority: Routine Abdominal Diagnostic Findings Distal aorta: Patent. Lower Extremity Diagnostic Findings Left common iliac artery: Patent Left external iliac artery: Patent Left internal iliac artery: Diseased Left common femoral artery: Patent Left profunda femoral artery: Patent Left SFA: Multiple serial mid to distal SFA 80-90% stenosis. Calcified vessel Left popliteal artery: Patent Below the knee patent 3 vessel run off.. Right common iliac artery: Patent Right external iliac artery: Patent Right internal iliac artery: Patent Right common femoral artery: Patent Right profunda femoral artery: Patent Right SFA: Severe mid SFA serial stenosis Right popliteal artery: Patent Below the knee there is 2 vessel runoff with patent AT and peroneal artery. Posterior tibial artery is occluded. . Lower Extremity Interventional Findings Procedure Detail: We obtained access in the right common femoral artery. We performed abdominal angiogram. This was followed by placing a long sheath from the right common femoral artery up and over to the left external iliac artery. Glidwire was used to cross the SFA stenosis. We then used seeker support catheter to exchange the glidewire to viper wire. Orbital arthrectomy was performed in the SFA. This was followed by balloon angioplasty. At this time final angiogram was performed that showed excellent flow in the left lower extremity. Sheath was sutured in place for removal later. Patient left the syrup machine laborer in a stable condition. Conclusions Severe peripheral artery disease. Successful revascularization of the left lower extremity with orbital arthrectomy and balloon angioplasty of the left SFA. Severe PAD of the right lower extremity. Recommendations Transfer to [facility]. Aspirin and Plavix. Outpatient cardiology follow up in 4 weeks. Hemodynamic Data Phase:Rest AO : 119.0 / 52.0 ( 76.0 ) @ 9:29:00 AM Access Site Site: Right Femoral artery Sheath Size: 6 Fr Hemost... Method: Suture Hemost... Success: Successful Procedure Details Findings Pre-Procedure Time Out. Identified patient by full name and date of as verbalized by the patient/guarantor. Does the consent match the physician's order: Yes. Accurate & Complete Informed Consent: Yes. Inpatient/Outpatient History & Physical on Chart: Yes. If H&P is completed, is and addenduem needed: No; If yes, is the addendum complete: N/A. Visualize and Verify Site with Patient/Guarantor: N/A. Relevant Radiology Images available: N/A. Pre-op teaching completed and patient verbalized understanding. The risks, benefits, and alternatives of sedation and/or procedure were discussed by physician. The patient agrees to continue. Procedure started. Correct patient, site and procedure confirmed by cath team. PERRLA. Strong, equal hand manufacturers service representative bilaterally. Lungs clear x 5 lobes. IV Site on Arrival: 22 gauge in the right upper arm. IV Fluids: 0.9% NaCl at KVO. 0 mL infused prior to syrup machine laborer. Pre Procedural Pulses: bilateral dorsalis pedis was Doppled. Pre Procedural Pulses: bilateral posterior tibial was Doppled. Oxygen started at 2liters/min via nasal canula. Pre Procedural Pulses: bilateral radial was 2+. Pt has a peritoneal AV fistula. Physician arrived. Equipment: Peripheral. Cardiac Cath Pack. ACIST Manifold Kit Model BT 2000. Heparinized Saline (2 units/mL), 1000 mL bag. Inventory is JJ 6F 11cm Jihan Plus Sheath. bilateral groins was prepped with chloroprep then draped in the usual sterile fashion. Baseline sample Acquired. HR: 95 BPM. Physician scrubbed in. Immediate Pre-Procedure Time Out. Correct Patient: Yes; Correct Procedure: Yes; Correct Site: Yes; Correct Patient Position: Yes; Correct Supplies: Yes; Dried Flammable Prep: Yes; Blood Products Available: N/A;. Lidocaine 1% infiltrated to the right groin. Arterial access obtained with micropuncture set. A CORDIS 5F UF catheter 65cm was advanced over the wire and used for Abdominal aortogram with runoff. Abdominal aortogram performed in AP @ 10 mL/sec for a total of 30 mL. Catheter removed over the glide wire. Glidewire inserted and advanced into Left SFA. Short 6 fr sheath exchanged for long 6 fr 45 cm Flexor sheath. Inventory is CK 6 FR FLEXOR SHEATH 45CM. Left leg runoff through sheath 10 ml for total of 20 ml. SEEKER support catheter inserted over the wire. SEEKER and wire advanced to peroneal. Glidewire out. Hand injection performed. VIPER wire inserted through Seeker catheter and seated below the knee. Seeker catheter out over Viper wire. Diamondback Orbital Atherectomy 2.0mm device inserted over VIPER wire. Side port of sheath attached to Normal Saline flush at KVO to maintain patency. Orbital atherectomy performed to Left SFA. Orbital atherectomy performed to Left SFA. Orbital atherectomy performed to Left SFA. Orbital atherectomy performed to Left SFA. Orbital atherectomy performed to Left SFA. Orbital atherectomy performed to Left SFA. Atherectomy device removed over Viper wire. Seeker support catheter inserted over the wire. Viper wire out. Glidewire inserted and parked in the peroneal. Seeker catheter removed. Inflation number : 1 A AB Cochran 35 WINE CELLAR WORKER Catheter [id number] was prepped and advanced across the Superficial Femoral, Left , then inflated to 10 KRISTIN for 1:33 seconds. Inflation number: 2 The AB Cochran 35 WINE CELLAR WORKER Catheter [id number] was reinflated across the Superficial Femoral, Left, to 10 KRISTIN for 1:35 seconds. Balloon out over wire. Left leg runoff 10 ml for total of 30 ml. Long 45 cm 6 fr Flexor sheath exchanged for short 6 fr sheath. Right leg runoff 10 ml for total of 30 ml. Physician scrubbed out. A Suture was successful obtaining hemostatsis at the Right Femoral artery insertion site. Sheath(s) sutured into position with 2-0 silk and sterile 4x4's and Op-site applied over the site. No oozing or signs and symptoms of hematoma noted. Arterial sheath flushed and connected to tranducer and pressure bag with heparinized saline. Post Procedure: Pulses reassessed and unchanged. PERRLA. Strong, equal hand manufacturers service representative bilaterally. No VTE prophylaxis required. Post-op diagnosis: severe Left SFA stenosis, severe Right SFA stenosis. Complications: none. Estimated blood loss: 5mL-10mL. Contrast type used: Visipaque 320 mgI/mL, 500 mL bottle. Total IV fluids: 103 mL. Medication's Wasted: Lidocaine 1% = 10 mL. Medication's Wasted: Verapamil = 4 mg. Medication's Wasted: Nitro = 49.9 mg. Medication's Wasted: Heparin = 4000 units. Medication's Wasted: Other = versed 1 mg. Medication's Wasted: Other = fentanyl 50 mcg. Procedure completed. Patient transferred by bed to 1st floor. Vital chart was stopped. Procedure Medications Start: 9:59 AM Stop: 9:59 AM Medication: Versed Amount: 1 mg Route: I.V. Start: 10:00 AM Stop: 10:00 AM Medication: Fentanyl Amount: 50 mcg Route: I.V. Start: 10:20 AM Stop: 10:20 AM Medication: Versed Amount: 1 mg Route: I.V. Start: 10:20 AM Stop: 10:20 AM Medication: Fentanyl Amount: 25 mcg Route: I.V. Start: 10:48 AM Stop: 10:48 AM Medication: Heparin Amount: 5000 units Route: I.V. Start: 10:51 AM Stop: 10:51 AM Medication: Versed Amount: 1 mg Route: I.V. Start: 10:51 AM Stop: 10:51 AM Medication: Fentanyl Amount: 25 mcg Route: I.V. Start: 10:58 AM Stop: 10:58 AM Medication: Versed Amount: 1 mg Route: I.V. Start: 10:58 AM Stop: 10:58 AM Medication: Fentanyl Amount: 50 mcg Route: I.V. I, the attending physician, have reviewed and verified all procedure medications. Yes, all medications given per verbal order History/Risk Factors Hypertension: Yes Dyslipidemia: Yes Peripheral Arterial Disease (PAD): Yes Obesity: No Renal Disease: Yes Dialysis: Current Prior Interventions PCI: No CABG: No Valve Surgery: No Report Signatures Finalized by Socrates Rios MD on 08/21/2020 08:24 PM
[2020-08-07] MEDS: diphenhydrAMINE 50 mg Capsule PO (08:12)
--- NOTE | 2020-08-07 09:53 | W.PM.OPSUD ---
Surgery/Procedure H&P Update DATE OF PROCEDURE: August 07, 2020 DATE H&P PERFORMED: 07/23/20 H&P UPDATE INFORMATION: I have reviewed H&P completed within last 30 days, I have examined patient prior to procedure and No changes to prior documentation PREOP DIAGNOSIS: Critical limb ischemia/ non healing wounds on left foot PRIMARY INDICATION FOR PROCEDURE: Critical limb ischemia/non healing wounds on left foot PLANNED PROCEDURE: Operation Date: 08/07/20 08:30 Proposed Procedures p Peripheral Diagnostic 75598 i73.9(Not Applicable) - Socrates Rios M.D Possible peripheral intervention PATIENT REASSESSED PRIOR TO SEDATION, WITH NO CHANGE NOTED: Yes PHYSICAL EXAM: alert, oriented x 3, clear to auscultation bilaterally and regular rate & rhythm AIRWAY EVAL/ANESTHESIA PLAN: ASA III, Monitored Anesthesia, Local Anesthesia, Risks, benefits & alternatives of sedation and/or procedure discussed and Patient agrees to continue as planned
--- NOTE | 2020-08-07 11:45 | PC.NURSE ---
Received pt from laboratory chemist Pt is awake, oriented x4. Has mild chronic hip pain. Noted Right upper quadrant PD line.Pt has 6 Fr femoral arterial sheath on right groin attached to a pressure bag. No hematoma, swelling or bleeding noted on right groin areas. DP and PT are doppled and good arterial flow. Skin is warm on lower extremities. Wound dressing on left foot noted. Call light within reach. Activity restrictions discuss to pt and such as bedrest and no lifting and moving right hip and right leg.
[2020-08-07] MEDS: clopidogrel 300 mg Tablet PO (12:41)
[2020-08-07] MEDS: Dianeal low Ca w/1.5% dex 2,000 mL Bag 2000 ML INTRAPERIT ×3 (12:43→22:36)
[2020-08-07 12:56] LABS: Glucose Point of Care 162 mg/dL (70-110)
--- NOTE | 2020-08-07 12:58 | PC.NURSE ---
Peritoneal dialysis pt stated he drain his peritoneal dialysis today at 6 am. removed 2500 ml this morning. Pt stated he filled 1.5 and 2.5 a night before.
[2020-08-07 13:43] LABS: Partial Thromboplastin Time 196.3 SECONDS (23.9-36.7)
--- NOTE | 2020-08-07 14:05 | PM.CONSULT ---
Providers/Reason For Consult Consulting Physician/Specialty*: felicia kay md / telenephrology Reason for Consult*: ESRD Attending Physician: Socrates Rios M.D Primary Care Provider: Carla Ceballos MD History of Present Illness History of Present Illness Helio Reynoso is a 65 year old male w/ PMH of ESRD on CCPD, IDDM, CHF, HTN, hyperlipidemia. The pt was recently admitted to the hospital with left lower extremity cellulitis and left great toe wound with black eschar. He was treated with antibiotics. Doppler ultrasound showed possible significant stenosis of distal left SFA. NICK recently performed and a value of 0.7. He does feel exertional pain on the left side. he is s/p angiogram and stent of SFA thia am. renal is asked to consult to provide ESRD care. PT still has residual renal fxn. Review of Systems General: Reports: 10 or more systems reviewed and unremarkable except in HPI and below Narrative: leg pain and swelling. weak, no n/v/f/c/blankenship/d. Chronic sob Meds/Allergies Home Medications and Allergies Home Medications Medication Instructions Recorded Confirmed Last Taken Type budesonide-formoterol [Symbicort] 2 puff INHALATION BID 03/15/19 08/07/20 08/06/20 17:00 History levothyroxine 88 mcg PO DAILY 03/15/19 08/07/20 08/06/20 10:00 History omega-3 fatty acids-fish oil [Fish 1 cap PO DAILY 03/15/19 08/07/20 08/06/20 10:00 History Oil] oxygen-air delivery systems #1 04/13/19 08/06/20 Unknown History RenaPlex-D 1 tab PO QPM 08/19/19 08/07/20 08/06/20 17:00 History pantoprazole 40 mg PO BID 30 Days #30 tab 10/27/19 08/07/20 08/06/20 17:00 Rx metoprolol tartrate 25 mg tablet 12.5 mg PO BID 02/27/20 08/07/20 08/06/20 17:00 History Lantus U-100 Insulin 10 unit SUBCUT BEDTIME 03/13/20 08/07/20 08/06/20 17:00 History amlodipine 5 mg PO DAILY 03/13/20 08/07/2008/06/21 10:00 History B-complex with vitamin C 1 tab PO DAILY #30 tab 04/17/20 08/07/20 08/06/20 10:00 Rx furosemide 80 mg tablet 80 mg PO BID 06/03/20 08/07/20 08/06/20 17:00 History oxycodone-acetaminophen 1 tab PO Q6H PRN 07/09/20 08/07/20 08/06/20 10:00 History sodium bicarbonate 650 mg PO BID 07/09/20 08/07/20 08/06/20 17:00 History aspirin 81 mg PO DAILY 30 Days #30 tab 07/13/20 08/07/20 08/06/20 10:00 Rx atorvastatin 40 mg PO QPM 30 Days #30 tab 07/13/20 08/07/20 08/06/20 17:00 Rx Allergies Allergy/AdvReac Type Severity Reaction Status Date / Time No Known Allergies Allergy Verified 08/07/20 08:13 Current Medications Current Medications Generic Name Dose Route Start Last Admin Trade Name Freq PRN Reason Stop Dose Admin Sodium Chloride 1,000 mls @ 50 mls/hr 08/07/20 07:30 08/07/20 08:12 Sodium Chloride 0.9% IV 08/08/20 03:29 Not Given .Q20H ONE Peritoneal Dialysis Solution 2,000 ml 08/07/20 12:30 08/07/20 12:43 Dianeal Low Ca W/1.5% Dex 2,000 Ml Bag INTRAPERIT 2,000 ml Q4H LENNIE Administration PFSH Acute PFSH: Medical History Altered mental status Blood transfusion abn reaction or complication, no procedure mishap Cataract disorder type 14 COPD (chronic obstructive pulmonary disease) Diastolic congestive heart failure ESRD (end stage renal disease) Hypertension Hypothyroidism Insulin dependent type 2 diabetes mellitus Iron deficiency anemia Nonalcoholic liver disease, chronic Secondary hyperparathyroidism Surgical History H/O esophagogastroduodenoscopy 2020 History of open reduction and internal fixation (ORIF) procedure Peritoneal dialysis catheter in place (03/14/20) S/P dialysis catheter insertion (08/30/19) Status post creation of arteriovenous fistula Family History Other CAD (coronary artery disease) Hyperlipidemia Hypertension Denies family history of Anesthesia complication Bleeding disorder Cancer Social History Smoking and tobacco status: former smoker Alcohol intake: never Household members: family and other Details: Lives with his mother Current occupational status: disabled History of recent travel: No Vitals/I&O/Wt Last Vital Signs Temp 97.9 F 08/07/20 07:55 Pulse 91 08/07/20 12:45 Resp 21 H 08/07/20 12:45 BP 153/80 08/07/20 12:45 Pulse Ox 99 08/07/20 12:45 08/06/20 08/07/20 08/07/20 22:59 06:59 14:59 Output Total 100 / 100 Balance -100 / -100 Weight last 48 hrs Weight 68.039 kg Physical Exam Narrative: EXAM NARRATIVE: NARD in bed vss heent- nc/at, eomi neck no jvp lungs wheezes, basal crackles heart- reg, +SALINA abd soft, nt, nd, +PD catheter ext-LLE ulcer, red, edema neuro- a,a, o x 3 poor DP and PT pulses mood- stable A&P Additional A&P Information 65 yr old man s/p Lower extremity angiogram and intervention 1. ESRD- cont PD- hospital only has CAPD- will do 5 exchanges a day- 1.25% gluc, low ca 2. PVD- s/p angiogram and intervention 3. DM care per medicine 4. hgb okay for ESRD -10.9 on 08/05/20 5. hyponatremia- monitor w/ HD -normal cortisol and tsh in June 2020 6. bone- mineral- metabolism of ESRD- monitor phos, -last pth 80- no vit d analouges -vit d level low- po vit d 7. normal tsh on levothyroxine 8. bicarb okay - d/c oral sodium bicarb as on PD 9. bp okay pt seen and examined w/ RN- telehealth visit discussed w/ pt, family, RN, and Dr. Spicer Consult Attestations Medical Necessity Statement: esrd, pvd- per Dr. Spicer Time Spent in Patient Care: Greater than 35 minutes Coding Level of Care Code Acute Three Dimensional Art Instructor for Brynn Castro
[2020-08-07 16:14] LABS: Glucose Point of Care 243 mg/dL (70-110)
[2020-08-07 16:27] LABS: Partial Thromboplastin Time 39.1 SECONDS (23.9-36.7)
[2020-08-07] MEDS: atorvastatin 40 mg Tablet PO (17:02)
[2020-08-07] MEDS: metoprolol tartrate 25 mg Tablet 12.5 MG PO (17:02)
[2020-08-07] MEDS: pantoprazole DR 40 mg Tablet PO (17:02)
[2020-08-07] MEDS: oxyCODONE-APAP 5-325 mg Tablet 1 TAB PO ×2 (17:13→22:34)
--- NOTE | 2020-08-07 17:36 | PC.NURSE ---
Sheath Removal Explained procedure to pt. Aseptic technique. Right femoral artery felt palpable +3. Sheath removed in right groin. Manual pressure applied for 20 mins. No hematoma, bleeding or swelling noted upon sheath removal. Dorsalis pedis and posterior tibial are doppled are heard w/good arterial flow sound on both lower extremities. Pt tolerated the procedure well. Clean dressing applied to puncture site. call light provided.
--- NOTE | 2020-08-07 19:17 | PC.NURSE ---
Received bedside report from SULMA Oliva. Patient is s/p peripheral angiogram with right femoral access. Sheath has been removed. Dressing in place remains C,D,I. No s/s of bleeding or hematoma formation observed. Patient is received PD fluid at this time. Patient is tolerating well.
[2020-08-07] MEDS: insulin glargine 100 units/1 mL 10 UNIT SUBCUT (20:58)
[2020-08-07 21:42] LABS: Glucose Point of Care 161 mg/dL (70-110)
--- NOTE | 2020-08-07 22:44 | PC.NURSE ---
Begin drain on PD. Patient tolerating well.
--- NOTE | 2020-08-08 04:08 | PC.NURSE ---
Placed next dose of Dianeal for his 0600 PD treatment on warmer.
[2020-08-08 04:28] VITALS: BP 115/62; PULSE 96; RESP 14; TEMP 36.6; O2SAT 99
[2020-08-08 05:06] VITALS: RESP 18
[2020-08-08] MEDS: oxyCODONE-APAP 5-325 mg Tablet 1 TAB PO (05:06)
[2020-08-08 05:21] LABS: Basophils % 0.3 %; Eosinophils # 0.2 10^3/uL (0.0-0.8); Eosinophils % 1.8 %; Hematocrit 28.1 % (42.0-52.0); Lymphocytes # 1.5 10^3/uL (0.8-4.8); Mean Corpuscular Hemoglobin 32.4 pg (28.0-34.0); Mean Corpuscular Volume 101.1 fL (80-94); Mean Platelet Volume 8.9 fL (7.4-10.4); Monocytes # 0.9 10^3/uL (0.2-0.9); Monocytes % 7.3 %; Neutrophils # 8.98 10^3/uL (1.8-7.7); Nucleated Red Blood Cells % 0 %; Platelet Count 404 10^3/cmm (130-400); Red Blood Count 2.78 10^6/uL (4.1-5.3); Red Cell Distribution Width 16.3 % (12.1-15.1); White Blood Count 11.8 10^3/uL (4.0-10.0)
[2020-08-08] MEDS: Dianeal low Ca w/1.5% dex 2,000 mL Bag 2000 ML INTRAPERIT (05:33)
[2020-08-08 05:36] LABS: Alanine Aminotransferase 20 U/L (0-41); Albumin Level 2.2 g/dL (3.5-5.2); Alkaline Phosphatase 98 IU/L (40-130); Anion Gap 16.8 (5-19); Aspartate Amino Transferase 16 U/L (0-40); Blood Urea Nitrogen 43 mg/dL (8-23); Calcium 7.8 mg/dL (8.5-10.5); Carbon Dioxide 23 mmol/L (22-29); Chloride 97 mmol/L (98-107); Globulin 2.9 g/dL (1.3-4.6); Glomerular Filtration Rate 21.1 mL/min (90-130); Glucose 108 mg/dL (65-115); Magnesium 1.2 mg/dL (1.7-2.3); Osmolality Calculated 287 mOsm/kg (285-295); Phosphorus 3.5 mg/dL (2.5-4.5); Potassium 3.8 mmol/L (3.5-5.1); Sodium 133 mmol/L (136-145); Total Bilirubin 0.2 mg/dL (0.15-1.2); Total Protein 5.1 g/dL (6.6-8.7)
[2020-08-08 05:50] LABS: Calcium 7.5 mg/dL (8.5-10.5)
[2020-08-08 05:53] LABS: Parathyroid Hormone 87.1 pg/mL (15-65)
[2020-08-08 06:00] VITALS: PULSE 83
[2020-08-08 06:06] LABS: Iron 26 ug/dL (59-158); Percent Saturation 20.3 % (20-50); Total Iron Binding Capacity 128 mcg/dl; Unsaturated Iron Binding 102 ug/dL (112-347)
[2020-08-08 06:17] LABS: Ferritin 1233 ng/mL (30-400)
[2020-08-08 06:22] LABS: 25 Hydroxy Vitamin D 51 ng/mL (30-100)
[2020-08-08 06:28] LABS: Glucose Point of Care 118 mg/dL (70-110)
[2020-08-08 07:24] VITALS: PULSE 97; RESP 18; O2SAT 98
[2020-08-08 07:29] VITALS: PULSE 101
--- NOTE | 2020-08-08 08:24 | PM.PN ---
Subjective Medications: Reviewed: Yes Vitals/I&O/Wt Last Vital Signs Temp 98 F 08/08/20 04:28 Pulse 101 H 08/08/20 07:29 Resp 18 08/08/20 07:24 BP 115/62 08/08/20 04:28 Pulse Ox 98 08/08/20 07:24 08/07/20 08/08/20 08/08/20 22:59 06:59 14:59 Intake Total 2120 / 4120 120 / 4240 Output Total 2170 / 2270 Balance -50 / 1850 120 / 1970 Weight last 48 hrs Weight 69.536 kg Weight 71.241 kg Weight 68.039 kg Data : 08/08/20 04:25 08/08/20 04:25 A&P Additional A&P Information 1. ESRD on peritoneal dialysis - current rx 1.5%, 2L 5x daily 2. PVD s/p Agram 3. Anemia 4. Mild hyponatremia 5. Diabetes, Hypertension Exam and interview performed with aid of bedside RN using telemedicine Coding Level of Care Code Acute Environmental Conservation Professor for g Matthew
--- NOTE | 2020-08-08 08:50 | P.SS_ITS ---
Short Stay Summary Providers Date of Admit/Discharge: 08/07/20 Attending Provider: Socrates Rios M.D Primary Care Provider: Carla Ceballos MD Chief Complaint: periphreal diagnostic HPI History of Present Illness Helio Reynoso is a 65 year old male with past medical history of end- stage renal disease on peritoneal dialysis and sees Dr. Rapp for that, diabetes, congestive heart failure, hypertension, hyperlipidemia was recently admitted to the hospital with left lower extremity cellulitis and left great toe wound with black eschar. He was treated with antibiotics. He sees wound clinic. Doppler ultrasound showed possible significant stenosis of distal left SFA. NICK recently performed and a value of 0.7. He does feel exertional pain on the left side. He has come to hospital for peripheral angiogram with possible intervention Review of Systems Const: Denies: fever(s), chills, change in weight, fatigue or diaphoresis Eyes: Denies: change in vision or eye redness ENMT: Denies: throat pain, odynophagia, mouth pain or epistaxis Card: Reports: swelling of feet/ankles; Denies: chest pain, palpitations, irregular heart rhythm, edema, syncope, pre- syncope, dyspnea on exertion, orthopnea or leg pain with exertion Resp: Denies: dyspnea, productive cough or wheezing GI: Denies: nausea, vomiting, hematemesis, hematochezia or melena : Denies: hematuria Musc: Denies: extremity swelling or joint pain Skin/Breast: Denies: rash, pruritus, erythema or new lesions Neuro: Denies: numbness in extremities, weakness in extremities, sensory changes, frequent falls, Slurred speech present or difficulty communicating thoughts Psych: Denies: anxiety, depression, irritability, suicidal ideation or homicidal ideation Endo: Denies: polyuria, polydipsia or excessive sweating Alfonso/Lymph: Reports: easy bruising and easy bleeding Home Meds/Allergies Home Medications and Allergies Home Medications Medication Instructions Recorded Confirmed Type budesonide-formoterol [Symbicort] 2 puff INHALATION BID 03/15/19 08/16/20 History levothyroxine 88 mcg PO DAILY 03/15/19 08/16/20 History omega-3 fatty acids-fish oil [Fish 1 cap PO DAILY 03/15/19 08/16/20 History Oil] oxygen-air delivery systems #1 04/13/19 08/14/20 History RenaPlex-D 1 tab PO QPM 08/19/19 08/16/20 History metoprolol tartrate 25 mg tablet 12.5 mg PO BID 02/27/20 08/16/20 History Lantus U-100 Insulin 10 unit SUBCUT BEDTIME 03/13/20 08/16/20 History furosemide 80 mg tablet 80 mg PO BID 06/03/20 08/16/20 History oxycodone-acetaminophen 1 tab PO Q6H PRN 07/09/20 08/16/20 History sodium bicarbonate 650 mg PO BID 07/09/20 08/16/20 History Allergies Allergy/AdvReac Type Severity Reaction Status Date / Time No Known Allergies Allergy Verified 08/14/20 14:27 PFSH Acute PFSH: Medical History Altered mental status Blood transfusion abn reaction or complication, no procedure mishap Cataract disorder type 14 COPD (chronic obstructive pulmonary disease) Diastolic congestive heart failure ESRD (end stage renal disease) Hypertension Hypothyroidism Insulin dependent type 2 diabetes mellitus Iron deficiency anemia Nonalcoholic liver disease, chronic Secondary hyperparathyroidism Surgical History H/O esophagogastroduodenoscopy 2020 History of open reduction and internal fixation (ORIF) procedure Peritoneal dialysis catheter in place (03/14/20) S/P dialysis catheter insertion (08/30/19) Status post creation of arteriovenous fistula Family History Other CAD (coronary artery disease) Hyperlipidemia Hypertension Denies family history of Anesthesia complication Bleeding disorder Cancer Social History Smoking and tobacco status: never smoked Alcohol intake: never Household members: family and other Details: Lives with his mother Current occupational status: disabled History of recent travel: No Vitals/I&O/Wt Last Vital Signs Temp 98 F 08/08/20 04:28 Pulse 101 H 08/08/20 07:29 Resp 18 08/08/20 07:24 BP 115/62 08/08/20 04:28 Pulse Ox 98 08/08/20 07:24 08/07/20 08/08/20 08/08/20 22:59 06:59 14:59 Intake Total 2120 / 4120 120 / 4240 400 / 400 Output Total 2170 / 2270 Balance -50 / 1850 120 / 1970 400 / 400 Weight last 48 hrs Weight 153 lb 4.8 oz Weight 157 lb 0.96 oz Weight 150 lb Physical Exam Narrative: EXAM NARRATIVE: EXAM NARRATIVE: Const COMMON NORMALS: no acute distress GENERAL APPEARANCE: cooperative Neck/C-Spine COMMON NORMALS: no JVD Resp COMMON NORMALS: normal respiratory effort, No retractions, No use of accessory muscles and clear to auscultation bilaterally AUSCULTATION: clear to auscultation bilaterally Cardio COMMON NORMALS: no JVD, regular rate, regular rhythm, S1 normal heart sound present and S2 normal heart sound present RATE: regular rate RHYTHM: regular rhythm HEART SOUNDS: S1 normal heart sound present and S2 normal heart sound present GI COMMON NORMALS: Normal to inspection, nondistended, normoactive bowel sounds present, Soft to palpation and non-tender PALPATION: Yes Soft to palpation Extremity NARRATIVE EXTREMITY EXAM: Left lower extremity, cellulitis, left eduardo, significantly improved, left great toe, wrapped and bandaged Urinary Catheter Management^: Erwin: Cath Placed During This Visit: yes Reason for Continuing Indwelling Catheter: Other Urinary Catheter Date of Insertion: 07/09/20 Urinary Catheter Time of Insertion: 17:31 Hospital Course Hospital Course Helio Reynoso is a 65 year old male with past medical history of end- stage renal disease on peritoneal dialysis and sees Dr. Rapp for that, diabetes, congestive heart failure, hypertension, hyperlipidemia was recently admitted to the hospital with left lower extremity cellulitis and left great toe wound with black eschar. He was treated with antibiotics. He sees wound clinic. Doppler ultrasound showed possible significant stenosis of distal left SFA. NICK recently performed and a value of 0.7. He does feel exertional pain on the left side. Patient underwent peripheral angiogram that showed severe mid to distal left SFA is stenosis. He underwent successful revascularization with orbital arthrectomy and balloon angioplasty. He has developed excellent flow on the left side. He has significant right SFA disease as well. We will stage the procedure for revascularization of right lower extremity. 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 service Routin e Exams 08/07/20 07:30 Taken Complete Blood Co unt w/Auto AM LABS Lab 08/09/20 04:00 Ordered Complete Blood Co unt w/Auto AM LABS Lab 08/10/20 04:00 Ordered Comprehensive Met abolic Panel AM LA BS Lab 08/09/20 04:00 Ordered Comprehensive Met abolic Panel AM LA BS Lab 08/10/20 04:00 Ordered Magnesium AM LABS Lab 08/09/20 04:00 Ordered Magnesium AM LABS Lab 08/10/20 04:00 Ordered Phosphorus AM LAB S Lab 08/09/20 04:00 Ordered Phosphorus AM LAB S Lab 08/10/20 04:00 Ordered Discharge Plan Discharge Patient Disposition: Home Condition: Stable Prescriptions: New clopidogrel [Plavix] 75 mg tablet 75 mg PO DAILY Qty: 90 RF: 3 Continued (DME) oxygen-air delivery systems Device See Rx Instructions .ROUTE .MEDSUPPLY Qty: 1 RF: 0 metoprolol tartrate 25 mg tablet 12.5 mg PO BID RF: 0 furosemide 80 mg tablet 80 mg PO BID RF: 0 levothyroxine 88 mcg tablet 88 mcg PO DAILY RF: 0 budesonide-formoterol [Symbicort] 160-4.5 mcg/actuation HFA aerosol inhaler 2 puff INHALATION BID RF: 0 omega-3 fatty acids-fish oil [Fish Oil] 360-1,200 mg capsule 1 cap PO DAILY RF: 0 oxycodone-acetaminophen 5-325 mg Tablet 1 tab PO Q6H PRN (Reason: Pain) RF: 0 sodium bicarbonate 650 mg Tablet 650 mg PO BID RF: 0 RenaPlex-D 800 mcg-12.5 mg -2,000 unit tablet 1 tab PO QPM RF: 0 pantoprazole 40 mg Tablet,Delayed Release (Dr/Ec) 40 mg PO BID 30 Days Qty: 30 RF: 0 Lantus U-100 Insulin 100 unit/mL solution 10 unit SUBCUT BEDTIME RF: 0 B-complex with vitamin C Tablet 1 tab PO DAILY Qty: 30 RF: 0 No Action sulfamethoxazole-trimethoprim [Bactrim DS] 800-160 mg tablet 1 tab PO BID Qty: 20 RF: 0 Bactrim DS 800-160 mg tablet 1 tab PO DAILY 14 Days Qty: 28 RF: 0 Discharge Orders: Discharge Order (Routine); Ordered 08/08/20 Ordered By: Socrates Rios Referrals: Socrates Rios M.D [Physician] - 09/09/20 3:00 pm (You have a post cardiology followup with Dr. Rios at [facility] on Wednesday, September 09 at 3:00pm) Noemy Lea FNP [Nurse Practitioner] - 08/15/20 12:45 pm (You have a post procedure followup with ENMA Perea at [facility] on , August 15 at 2:45pm) Discharge Diet: Diabetic Discharge Activity: Increase activity as tolerated Patient Instructions: Clopidogrel (By mouth), Peripheral Vascular Angioplasty (DC), Opioid Safety, Post Angiogram Home Care Instructions Activity Restrictions/Additional Instructions: Please do not lift more than 5 pounds of weight for the next 5 days Attestations Medical Necessity Statement*: Care not expected to cross 2 midnights. Time Spent in Patient Care*: greater than 30 min Quality Metrics Clinical Quality Measures: During this hospital stay, did patient experience: None Coding Level of Care Code Acute Admitting Interviewer for Brynn Castro
--- NOTE | 2020-08-08 08:51 | PC.NURSE ---
upon taking morning medications in to patient states I do not want to take any of my pills here i will take them when i get home this nurse educated patient on the importance of taking his medications every day as prescribed. Patient verbalized understanding and explains i have all my meds how i take them and i will take them when i get home thank you
[2020-08-08 09:15] VITALS: BP 117/66; PULSE 107; RESP 18; O2SAT 98
--- NOTE | 2020-08-08 09:58 | PC.NURSE ---
Discharge instructions given per the physician's orders. Patient verbalized understanding of information and medication teaching. IV has been removed. Patient dressed self. Patient to be transported home by sister in private vehicle. Patient placed on protable O2 to be wheeled out of facility.
== END 2020-08-08 09:59 | disposition home or self-care (01) ==
LOC: CSU 11:46 → CCL 08-08 02:41 → CSU 08-08 02:41
PROVIDERS: Internal Medicine Nephrology; Admitting Provider Internal Medicine; PCP Internal Medicine; Visit Provider Internal Medicine
DX: E11.22 Type 2 diabetes mellitus with diabetic chronic kidney disease (principal); I13.2 Hypertensive heart and chronic kidney disease with heart failure and with stage 5 chronic kidney disease, or end stage renal disease; I50.30 Unspecified diastolic (congestive) heart failure; N18.6 End stage renal disease; Z99.2 Dependence on renal dialysis; Z79.4 Long term (current) use of insulin; J44.9 Chronic obstructive pulmonary disease, unspecified; E03.9 Hypothyroidism, unspecified; Z87.891 Personal history of nicotine dependence; E78.5 Hyperlipidemia, unspecified
CPT/HCPCS: 36415; 36416; 37225; 75625; 75716; 80053; 82306; 82310; 82728; 82962; 83540; 83550; 83735; 83970; 84100; 85025; 85730; 94640; 96372; C1724; C1725; C1769; C1887; C1894; G0378; J1644; J1815 ×2; J2250; J3010; J3490; J7030; Q0163; Q3014; Q9967

== ENCOUNTER 2020-08-13 10:53 | Outpatient (CLI) | payer MEDICARE, MEDICAID, SELFPAY | END 2020-08-13 10:54 | disposition home or self-care (01) | LOC: WOUND 10:54 | PROVIDERS: PCP Internal Medicine; Visit Provider Thoracic Surgery (Cardiothoracic Vascular Surgery) | DX: E11.621 Type 2 diabetes mellitus with foot ulcer (principal); L97.529 Non-pressure chronic ulcer of other part of left foot with unspecified severity | CPT/HCPCS: G0463 ==

== ENCOUNTER → 2020-08-14 14:29 | Outpatient (BNVA) | payer MEDICARE, MEDICAID, SELFPAY | PROVIDERS: PCP Internal Medicine; Visit Provider Nurse Practitioner Family | DX: I70.229 Atherosclerosis of native arteries of extremities with rest pain, unspecified extremity (principal); Z20.822 Contact with and (suspected) exposure to COVID-19 | CPT/HCPCS: 87635 ==

== ENCOUNTER 2020-08-19 09:14 | Day surgery (SDC) | payer MEDICARE, MEDICAID, SELFPAY ==
--- NOTE | 2020-08-16 09:13 | ECG_ITS ---
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 Measurements Intervals [place] Rate: 93 P: 108 ND: 154 QRS: 24 QRSD: 78 T: 52 QT: 346 QTc: 432 Interpretive Statements SINUS RHYTHM NONSPECIFIC T-WAVE ABNORMALITY Compared to ECG 10/23/2019 20:51:42 T-wave abnormality now present Electronically Signed On 08-16-2020 14:24:08 CDT by Celestina Rose M.D. [id number]
[2020-08-16 10:09] VITALS: BMI 22.8
--- NOTE | 2020-08-16 10:23 | ANES.PREANE2 ---
Pre-Anesthetic Assessment Pre-Anesthetic Assessment: Height/Weight: Height 1.73 m Weight 68.039 kg Preop Diagnosis: gangrene left great toe Proposed Procedure: Operation Date: 08/19/20 10:50 Proposed Procedures p Amputation of left great toe 48344 E11.621(Left) - Horace Reyes MD Familial anesthetic complications: None Social: Social History: No alcohol and No tobacco Comment: fomer smoker Exam: Pre-Anes Outpt Exam: alert, oriented x 3, clear to auscultation bilaterally and regular rate & rhythm Airway: Cervical ROM: WNL MP: 4 Dentition: Other (missing) Additional comments: poor dentition, small mouth opening Pulmonary: Pulmonary: COPD (4 L NC) Comments: respiratory status stable CV/HEM: CV/HEM: Anemia, Arrythmia (tachycardia), CHF, HTN and PVD : : Chronic renal failure Comments: Dialysis Metabolic: Metabolic: DM and Thyroid Anesthetic Plan: ASA status: 4 Anesthesia: Choice Risk of > 500 ml blood loss (7ml/kg in children): No PFSH Anesthesia PFSH: Medical History Altered mental status Blood transfusion abn reaction or complication, no procedure mishap Cataract disorder type 14 COPD (chronic obstructive pulmonary disease) Diastolic congestive heart failure ESRD (end stage renal disease) Hypertension Hypothyroidism Insulin dependent type 2 diabetes mellitus Iron deficiency anemia Nonalcoholic liver disease, chronic Secondary hyperparathyroidism Surgical History H/O esophagogastroduodenoscopy 2020 History of open reduction and internal fixation (ORIF) procedure Peritoneal dialysis catheter in place (03/14/20) S/P dialysis catheter insertion (08/30/19) Status post creation of arteriovenous fistula Family History Other CAD (coronary artery disease) Hyperlipidemia Hypertension Denies family history of Anesthesia complication Bleeding disorder Cancer Social History Smoking and tobacco status: never smoked Alcohol intake: never Household members: family and other Details: Lives with his mother Current occupational status: disabled History of recent travel: No Data Anesthesia Cardiac Studies: No Data to Display
[2020-08-16 10:30] LABS: Basophils # 0.1 10^3/uL (0.0-0.1); Basophils % 0.6 %; Eosinophils # 0.1 10^3/uL (0.0-0.8); Eosinophils % 0.6 %; Hematocrit 33.2 % (42.0-52.0); Hemoglobin 10.4 g/dL (11.7-16.6); Lymphocytes # 0.8 10^3/uL (0.8-4.8); Lymphocytes % 7.9 %; Mean Corpuscular HGB Conc 31.3 g/dL (30.0-36.0); Mean Corpuscular Hemoglobin 32.3 pg (28.0-34.0); Mean Corpuscular Volume 103.1 fL (80-94); Mean Platelet Volume 8.5 fL (7.4-10.4); Monocytes # 0.8 10^3/uL (0.2-0.9); Monocytes % 8.2 %; Neutrophils % 81.7 %; Nucleated Red Blood Cells % 0 %; Platelet Count 467 10^3/cmm (130-400); Red Blood Count 3.22 10^6/uL (4.1-5.3); Red Cell Distribution Width 15.6 % (12.1-15.1); White Blood Count 10.2 10^3/uL (4.0-10.0)
[2020-08-16 10:55] LABS: Anion Gap 15.3 (5-19); Blood Urea Nitrogen 32 mg/dL (8-23); Carbon Dioxide 28 mmol/L (22-29); Chloride 97 mmol/L (98-107); Glomerular Filtration Rate 30.2 mL/min (90-130); Glucose 89 mg/dL (65-115); Osmolality Calculated 288 mOsm/kg (285-295); Potassium 4.3 mmol/L (3.5-5.1); Sodium 136 mmol/L (136-145)
[2020-08-19 09:43] VITALS: BP 155/74; PULSE 78; RESP 18; TEMP 36.2; O2SAT 100
[2020-08-19 09:55] LABS: Glucose Point of Care 109 mg/dL (70-110)
[2020-08-19] MEDS: sodium chloride 0.9% 1,000 ML 30 ML IV (09:57)
--- NOTE | 2020-08-19 11:35 | P.ANESUD_ITS ---
Pre-Anesthetic Update Pre-Anesthetic Assessment: Date of Surgery/Procedure: 08/19/20 Preop Shirley gnosis: Critical limb ischemia/ non healing wounds on left foot Proposed Procedure: Operation Date: 08/19/20 10:50 Proposed Procedures p Amputation of left great toe 07947 E11.621(Left) - Horace Reyes MD Any changes to Pre-Anesthetic Assessment?: No Last Intake: Intake Last Liquid Date 08/18/20 Last Liquid Time 18:00 Last Solid Date 08/18/20 Last Solid Time 18:00 Labs Last 48hrs: Laboratory Results - last 48 hr 08/19/20 09:45 POC Glucose 109 Vitals: Temperature 97.2 F L 08/19/20 09:43 Temperature Source Temporal Artery S can 08/19/20 09:43 Pulse Rate 78 08/19/20 09:43 Respiratory Rate 18 08/19/20 09:43 Blood Pressure 155/74 08/19/20 09:43 Blood Pressure Maliha n 101 08/19/20 09:43 Pulse Oximetry 100 08/19/20 09:43 Oxygen Delivery Me thod 08/19/20 09:43 Oxygen Flow Rate 4 08/19/20 09:43 Exam: Pre-Anes Outpt Exam: alert, oriented x 3, clear to auscultation bilaterally and regular rate & rhythm Cardiac Studies: No Data to Display
--- NOTE | 2020-08-19 11:46 | W.PM.OPSUD ---
Surgery/Procedure H&P Update DATE OF PROCEDURE: August 19, 2020 DATE H&P PERFORMED: 08/14/20 PREOP DIAGNOSIS: Critical limb ischemia/ non healing wounds on left foot PLANNED PROCEDURE: Operation Date: 08/19/20 10:50 Proposed Procedures p Amputation of left great toe 68037 E11.621(Left) - Horace Reyes MD
[2020-08-19] MEDS: vancomycin 1,000 MG in sodium chloride 0.9% 250 ML 250 MG IV (12:25)
[2020-08-19 13:35] VITALS: BP 133/67; PULSE 78; RESP 12; TEMP 36.4; O2SAT 100
[2020-08-19 13:40] VITALS: BP 145/85; PULSE 81; RESP 16; O2SAT 100
[2020-08-19 13:45] VITALS: BP 157/91; PULSE 79; RESP 16; TEMP 36.2; O2SAT 100
--- NOTE | 2020-08-19 13:46 | PM.OP ---
Operative Report Date of procedure: August 19, 2020 Pre-op Diagnosis: Critical limb ischemia/ non healing wounds on left foot Post-op diagnosis: same Procedure Done: Left great toe amputation Specimens removed/disposition: Left great toe/to pathology Surgeon: Horace Reyes Anesthesia: MAC and Local Estimated blood loss (mL): 20 Complications: None Findings: Bone proximal to the first metatarsal articular surface appeared viable Condition: stable Disposition: PACU Brief History: Mr. Reynoso is a 65-year-old gentlemanWith diabetes mellitus and end-stage renal disease on dialysis at night. He has a gangrenous left great toe. He has known substantial peripheral vascular disease. We have been treating him conservatively in wound care services awaiting interventional therapy for his vascular disease. In mid July he underwent stenting of the left SFA. He is now electively admitted for planned left great toe amputation. Details risk procedure were carefully and frankly discussed. Proper consents have been reviewed and signed. Procedure: Mr. Reynoso was taken operating room theater and placed on the OR table. Appropriate timeout was completed and confirmed. He underwent IV conscious sedation anesthesia monitoring. His entire left leg from the knee distally was sterilely prepped and draped. 1% lidocaine without epinephrine was infiltrated as a digital block at the base of the left great toe for local anesthesia. #15 scalpel was then utilized to incise around the base of the toe where there did appear to be viable skin with the distal two thirds of the toe being frankly gangrenous. Dissection was continued down to the metatarsal phalangeal joint and transection was completed at this level. Culture taken from the specimen and then it was sent to pathology. The articular surface of the first metatarsal was then removed utilizing bone rongeur. Bone appeared to be viable at this area. We did obtain bone specimen for culture. Swab culture was done on the pathology specimen at the time of the amputation. Upon completion of debridement, tendons were placed on tension and then transected. Wound was irrigated with large amounts of antibiotic solution. Hemostasis confirmed. We then elected to attempt primary closure by reapproximating the skin utilizing simple interrupted 3-0 nylon suture. Xeroform gauze and sterile dressings were then applied. Mr. Reynoso tolerated the procedure well and was awakened from conscious sedation and taken back to the postoperative care unit in stable condition. I did grief counsellor with his at completion of the procedure. Will place him on Bactrim DS 1 p.o. twice daily awaiting culture results. He is scheduled for follow-up in wound care services tomorrow.
[2020-08-19 13:58] VITALS: BP 155/74; PULSE 80; RESP 18; TEMP 36.2; O2SAT 100
--- NOTE | 2020-08-19 15:30 | ANE.PACU2 ---
Inpatient post-anesthesia follow up: Airway intact: Yes Vital signs: Temperature 97.2 F Pulse Rate 80 Respiratory Rate 18 Blood Pressure 155/74 Pulse Oximetry 100 Oxygen Delivery Me thod Nasal Cannula Oxygen Flow Rate 4 Fraction of Inspir ed Oxygen Hydration adequate: Yes Nausea and vomiting: No Pain level: 1 Mental status: Baseline
== END 2020-08-19 14:38 | disposition home or self-care (01) ==
PROVIDERS: PCP Internal Medicine; Visit Provider Thoracic Surgery (Cardiothoracic Vascular Surgery)
PROC: (CPT 28820; principal; 2020-08-19 10:40)
DX: E11.621 Type 2 diabetes mellitus with foot ulcer (principal); I73.9 Peripheral vascular disease, unspecified; J44.9 Chronic obstructive pulmonary disease, unspecified; Z99.81 Dependence on supplemental oxygen; E11.22 Type 2 diabetes mellitus with diabetic chronic kidney disease; I13.2 Hypertensive heart and chronic kidney disease with heart failure and with stage 5 chronic kidney disease, or end stage renal disease; I50.30 Unspecified diastolic (congestive) heart failure; N18.6 End stage renal disease; Z99.2 Dependence on renal dialysis; Z82.49 Family history of ischemic heart disease and other diseases of the circulatory system
CPT/HCPCS: 28820; 36415; 36416; 80048; 82962; 85025; 87070; 87075; 87077; 87176; 87186; 87205; 88305; 88311; 93005; J2250; J2704; J3370; J7030; J7050

== ENCOUNTER 2020-08-21 13:06 | Outpatient (CLI) | payer MEDICARE, MEDICAID, SELFPAY | END 2020-08-21 13:07 | disposition home or self-care (01) | LOC: WOUND 13:07 | PROVIDERS: PCP Internal Medicine; Visit Provider Nurse Practitioner Family | DX: E11.621 Type 2 diabetes mellitus with foot ulcer (principal); L97.529 Non-pressure chronic ulcer of other part of left foot with unspecified severity | CPT/HCPCS: 99212 ==

== ENCOUNTER 2020-08-28 07:54 | Outpatient (CLI) | payer MEDICARE, MEDICAID, SELFPAY | END 2020-08-28 07:55 | disposition home or self-care (01) | LOC: WOUND 07:57 | PROVIDERS: PCP Internal Medicine; Visit Provider Nurse Practitioner Family | DX: E11.621 Type 2 diabetes mellitus with foot ulcer (principal); L97.522 Non-pressure chronic ulcer of other part of left foot with fat layer exposed | CPT/HCPCS: 11042 ==

== ENCOUNTER 2020-09-11 13:53 | Outpatient (CLI) | payer MEDICARE, MEDICAID, SELFPAY | END 2020-09-11 13:54 | disposition home or self-care (01) | LOC: WOUND 13:54 | PROVIDERS: PCP Internal Medicine; Visit Provider Thoracic Surgery (Cardiothoracic Vascular Surgery) | DX: E11.621 Type 2 diabetes mellitus with foot ulcer (principal); L97.522 Non-pressure chronic ulcer of other part of left foot with fat layer exposed; S51.811A Laceration without foreign body of right forearm, initial encounter; X58.XXXA Exposure to other specified factors, initial encounter; Z89.422 Acquired absence of other left toe(s) | CPT/HCPCS: 11042; 11044; 87070; 87077; 87176; 87186; 87205; 97597; 97598 ==

== ENCOUNTER 2020-09-13 09:52 | Outpatient (CLI) | payer MEDICARE, MEDICAID, SELFPAY | END 2020-09-13 09:53 | disposition home or self-care (01) | LOC: WOUND 09:53 | PROVIDERS: PCP Internal Medicine; Visit Provider Surgery | DX: E11.621 Type 2 diabetes mellitus with foot ulcer (principal); L97.524 Non-pressure chronic ulcer of other part of left foot with necrosis of bone; S51.811A Laceration without foreign body of right forearm, initial encounter; X58.XXXA Exposure to other specified factors, initial encounter; Z89.422 Acquired absence of other left toe(s) | CPT/HCPCS: 11043; 11044; 11046 ==

== ENCOUNTER 2020-09-17 13:55 | Outpatient (CLI) | payer MEDICARE, MEDICAID, SELFPAY | END 2020-09-17 13:56 | disposition home or self-care (01) | LOC: WOUND 13:57 | PROVIDERS: PCP Internal Medicine; Visit Provider Nurse Practitioner Family | DX: E11.621 Type 2 diabetes mellitus with foot ulcer (principal); L97.521 Non-pressure chronic ulcer of other part of left foot limited to breakdown of skin; S51.812A Laceration without foreign body of left forearm, initial encounter; S51.811A Laceration without foreign body of right forearm, initial encounter; X58.XXXA Exposure to other specified factors, initial encounter; Z89.422 Acquired absence of other left toe(s) | CPT/HCPCS: 99215 ==

== ENCOUNTER 2020-09-24 13:05 | Outpatient (CLI) | payer MEDICARE, MEDICAID, SELFPAY | END 2020-09-24 13:06 | disposition home or self-care (01) | LOC: WOUND 13:07 | PROVIDERS: PCP Internal Medicine; Visit Provider Thoracic Surgery (Cardiothoracic Vascular Surgery) | DX: E11.621 Type 2 diabetes mellitus with foot ulcer (principal); L97.522 Non-pressure chronic ulcer of other part of left foot with fat layer exposed; S51.812A Laceration without foreign body of left forearm, initial encounter; S51.811A Laceration without foreign body of right forearm, initial encounter; X58.XXXA Exposure to other specified factors, initial encounter; Z87.891 Personal history of nicotine dependence; Z89.422 Acquired absence of other left toe(s) | CPT/HCPCS: 11042; 97597; 97598 ==

== ENCOUNTER 2020-10-09 09:49 | Outpatient (CLI) | payer MEDICARE, MEDICAID, SELFPAY | END 2020-10-09 09:50 | disposition home or self-care (01) | LOC: WOUND 09:50 | PROVIDERS: PCP Internal Medicine; Visit Provider Thoracic Surgery (Cardiothoracic Vascular Surgery) | DX: I96 Gangrene, not elsewhere classified (principal); E11.622 Type 2 diabetes mellitus with other skin ulcer; L98.492 Non-pressure chronic ulcer of skin of other sites with fat layer exposed; E11.621 Type 2 diabetes mellitus with foot ulcer; L97.522 Non-pressure chronic ulcer of other part of left foot with fat layer exposed; Z89.412 Acquired absence of left great toe; Z87.891 Personal history of nicotine dependence | CPT/HCPCS: 11042; 11044; 87070; 87077; 87176; 87186; 87205; 97597 ==

== ENCOUNTER → 2020-10-15 10:56 | Day surgery (SDC) | payer MEDICARE, MEDICAID, SELFPAY ==
--- NOTE | 2020-10-15 12:12 | XR_ITS ---
WS: [id number] CHEST XRAY TECHNIQUE: Portable chest. CLINICAL INFORMATION: post PICC insertion COMPARISON: None. FINDINGS: Right PICC line with tip in the distal SVC. No pneumothorax. Normal cardiac silhouette. XR/XR chest 1V portable [id number] IMPRESSION: Right PICC line with tip in distal SVC
[2020-10-15 13:01] VITALS: BP 111/62; PULSE 76; RESP 16; TEMP 36.5; O2SAT 100
[2020-10-15] MEDS: ciprofloxacin 400 MG/200 ML PREMIX 200 MG IV (13:05)
[2020-10-15 13:09] VITALS: BMI 22.9
--- NOTE | 2020-10-15 14:40 | PC.NURSE ---
14:20 IV medication infused. PICC line flushed with 10ml of normal saline. end cap applied. stocking dressing applied for comfort. Patient and family member educated about PICC line safety and care.. Patient discharged in stable condition.
== END ==
PROVIDERS: PCP Internal Medicine; Visit Provider Thoracic Surgery (Cardiothoracic Vascular Surgery)
DX: M86.8X7 Other osteomyelitis, ankle and foot (principal)
CPT/HCPCS: 36569; 71045; 96365; 96366; J0744

== ENCOUNTER 2020-10-16 09:15 | Outpatient (CLI) | payer MEDICARE, MEDICAID, SELFPAY | END 2020-10-16 09:16 | disposition home or self-care (01) | LOC: WOUND 09:17 | PROVIDERS: PCP Internal Medicine; Visit Provider Nurse Practitioner Family | DX: E11.621 Type 2 diabetes mellitus with foot ulcer (principal); L97.514 Non-pressure chronic ulcer of other part of right foot with necrosis of bone; Z89.412 Acquired absence of left great toe; Z87.891 Personal history of nicotine dependence | CPT/HCPCS: 11042 ==

== ENCOUNTER 2020-10-23 09:15 | Outpatient (CLI) | payer MEDICARE, MEDICAID, SELFPAY | END 2020-10-23 09:16 | disposition home or self-care (01) | LOC: WOUND 09:16 | PROVIDERS: PCP Internal Medicine; Visit Provider Thoracic Surgery (Cardiothoracic Vascular Surgery) | DX: E11.621 Type 2 diabetes mellitus with foot ulcer (principal); L97.524 Non-pressure chronic ulcer of other part of left foot with necrosis of bone; Z87.891 Personal history of nicotine dependence; Z89.422 Acquired absence of other left toe(s) | CPT/HCPCS: 11043 ==

== ENCOUNTER 2020-10-30 09:39 | Outpatient (CLI) | payer MEDICARE, MEDICAID, SELFPAY | END 2020-10-30 09:40 | disposition home or self-care (01) | LOC: WOUND 09:41 | PROVIDERS: PCP Internal Medicine; Visit Provider Thoracic Surgery (Cardiothoracic Vascular Surgery) | DX: E11.621 Type 2 diabetes mellitus with foot ulcer (principal); L97.522 Non-pressure chronic ulcer of other part of left foot with fat layer exposed; Z89.422 Acquired absence of other left toe(s); Z87.891 Personal history of nicotine dependence | CPT/HCPCS: 11042; 11044; 87070; 87077; 87176; 87186; 87205 ==

== ENCOUNTER 2020-11-06 09:36 | Outpatient (CLI) | payer MEDICARE, MEDICAID, SELFPAY | END 2020-11-06 09:37 | disposition home or self-care (01) | LOC: WOUND 09:37 | PROVIDERS: PCP Internal Medicine; Visit Provider Nurse Practitioner Family | DX: E11.621 Type 2 diabetes mellitus with foot ulcer (principal); L97.524 Non-pressure chronic ulcer of other part of left foot with necrosis of bone; Z89.422 Acquired absence of other left toe(s); Z87.891 Personal history of nicotine dependence | CPT/HCPCS: 11043 ==

== ENCOUNTER 2020-11-13 09:38 | Outpatient (CLI) | payer MEDICARE, MEDICAID, SELFPAY | END 2020-11-13 09:39 | disposition home or self-care (01) | LOC: WOUND 09:39 | PROVIDERS: PCP Internal Medicine; Visit Provider Thoracic Surgery (Cardiothoracic Vascular Surgery) | DX: E11.621 Type 2 diabetes mellitus with foot ulcer (principal); L97.524 Non-pressure chronic ulcer of other part of left foot with necrosis of bone; Z89.422 Acquired absence of other left toe(s) | CPT/HCPCS: 11042; 11044 ==

== ENCOUNTER 2020-11-20 08:59 | Outpatient (CLI) | payer MEDICARE, MEDICAID, SELFPAY | END 2020-11-20 09:00 | disposition home or self-care (01) | LOC: WOUND 09:00 | PROVIDERS: PCP Internal Medicine; Visit Provider Thoracic Surgery (Cardiothoracic Vascular Surgery) | DX: E11.621 Type 2 diabetes mellitus with foot ulcer (principal); L97.524 Non-pressure chronic ulcer of other part of left foot with necrosis of bone; Z89.422 Acquired absence of other left toe(s); Z87.891 Personal history of nicotine dependence | CPT/HCPCS: 11042; 11043 ==

== ENCOUNTER 2020-11-27 08:33 | Inpatient (IN) | payer MEDICARE, MEDICAID, SELFPAY ==
[2020-11-27] VITALS (41 sets, daily range): BP systolic 89–125; BP diastolic 49–73; PULSE 75–117; RESP 16–25; TEMP 35.3–36.4; O2SAT 96–100; BMI 23.2
--- NOTE | 2020-11-27 08:41 | ECG_ITS ---
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 Measurements Intervals Crystal Rate: 85 P: IN: QRS: 51 QRSD: 85 T: 178 QT: 390 QTc: 465 Interpretive Statements Multifocal atrial rhythm LOW QRS VOLTAGE IN PRECORDIAL LEADS [QRS DEFLECTION < 1.0 mV IN CHEST LEADS] NONSPECIFIC ST & T-WAVE ABNORMALITY Compared to ECG 08/16/2020 10:31:34 Low QRS voltage now present Sinus rhythm no longer present T-wave abnormality still present Electronically Signed On 11-27-2020 23:01:31 CDT by Lam Murguia M.D. [id number]
--- NOTE | 2020-11-27 08:42 | XR_ITS ---
WS: [id number] XR chest 1V portable [id number] REASON FOR EXAM: Cough FINDINGS: Heart and mediastinum are within normal limits. PICC line present on 10/15/2020. No longer identified. Reticular and groundglass opacities in both lower lung mari and mid lung mari peripherally. Degen erative changes in the mid and lower thoracic spine and both shoulders. XR/XR chest 1V portable [id number] IMPRESSION: Infiltrates of unknown chronicity however compatible with acute/subacute pneumo nitis. Infiltrative pattern suggestive of Covid pneumonitis.
--- NOTE | 2020-11-27 08:44 | ED_ITS ---
HPI - General Adult General: Chief complaint: Shortness of Breath/Dyspnea Stated complaint: GENERAL WEAKNESS Time Seen by Provider: 11/27/20 08:38 History of Present Illness: HPI narrative: This patient presents to the emergency department with complaint of generalized weakness and Dyspnea Patient brought in by EMS as a renal failure patient. Patient reportedly was unable to have dialysis treatment yesterday due to a clotted fistula. Patient has a history of COPD and wears oxygen chronically. Patient is also followed by wound care due to a foot ulcer. Patient has no fever and is awake and alert x3. Will do medical evaluation treat as needed. Associated symptoms: Deny chest pain, dyspnea, headache(s), nausea, rash, palpitations or vomiting Review of Systems General: Reports: 10 or more systems reviewed and unremarkable except in HPI and below Const: Denies: fever(s), chills, body aches or fatigue Eyes: Denies: change in vision or blurry vision ENMT: Denies: throat pain, hoarseness or mouth pain Card: Denies: chest pain, palpitations, irregular heart rhythm, edema, swelling of feet/ankles or lightheadedness Resp: Denies: dyspnea, productive cough, non-productive cough, wheezing or pain on inspiration GI: Denies: abdominal pain, nausea or vomiting : Denies: flank pain, dysuria, urinary frequency, urinary urgency or urinary hesitancy Musc: Denies: neck pain, back pain, extremity pain, extremity swelling, joint pain, joint swelling, joint redness, joint warmth or limited range of motion Skin/Breast: Denies: rash, pruritus, erythema or skin tenderness Neuro: Denies: headache(s), numbness in extremities or weakness in extremities Psych: Denies: anxiety or depression PFSH ED PFSH: Medical History Altered mental status Blood transfusion abn reaction or complication, no procedure mishap Cataract disorder type 14 COPD (chronic obstructive pulmonary disease) Diastolic congestive heart failure ESRD (end stage renal disease) Hypertension Hypothyroidism Insulin dependent type 2 diabetes mellitus Iron deficiency anemia Nonalcoholic liver disease, chronic Secondary hyperparathyroidism Surgical History H/O esophagogastroduodenoscopy 2020 History of open reduction and internal fixation (ORIF) procedure Peritoneal dialysis catheter in place (03/14/20) S/P dialysis catheter insertion (08/30/19) Status post creation of arteriovenous fistula Family History Other CAD (coronary artery disease) Hyperlipidemia Hypertension Denies family history of Anesthesia complication Bleeding disorder Cancer Social History Alcohol intake: never Household members: family and other Details: Lives with his mother Current occupational status: disabled History of recent travel: No Physical Exam Const: COMMON NORMALS: no acute distress, average body habitus, patient oriented x3, no limitations, healthy appearing, alert and well nourished HENMT: COMMON NORMALS: normocephalic, atraumatic, hearing grossly normal bilaterally, external ears normal, EAC's normal, TM's normal bilaterally, Normal external nose present, Normal nasal mucous membranes and turbinates present, moist oral mucous membranes, oropharynx normal, dentition normal and gingiva normal HEAD & SCALP: normocephalic and atraumatic NOSE: Normal external nose present and Normal nasal mucous membranes and turbinates present EXTERNAL EAR: Yes external ears normal EXTERNAL AUDITORY CANAL: EAC's normal TYMPANIC MEMBRANE: TM's normal bilaterally Neck/C-Spine: COMMON NORMALS: full ROM, no lymphadenopathy, supple, no meningeal signs, no JVD, Thyroid normal and No carotid bruits THYROID: Thyroid normal Chest: COMMONS NORMALS: normal inspection of the chest, normal palpation of entire chest wall, normal inspection of the breasts and normal palpation of the breasts Breast/axilla inspection: Yes normal inspection of the breasts BREAST/AXILLA PALPATION: Yes normal palpation of the breasts Resp: COMMON NORMALS: normal respiratory effort, No retractions, No use of accessory muscles, clear to auscultation bilaterally and percussion normal AUSCULTATION: clear to auscultation bilaterally PERCUSSION: percussion normal Cardio: COMMON NORMALS: no JVD, regular rate, regular rhythm, S1 normal heart sound present, S2 normal heart sound present, No gallops present (Cardio), No clicks present (Cardio), No murmurs present (Cardio), No rub (Cardio) and Peripheral pulses 2+ throughout RATE: regular rate RHYTHM: regular rhythm HEART SOUNDS: S1 normal heart sound present and S2 normal heart sound present PERIPHERAL PULSES: Peripheral pulses 2+ throughout GI: COMMON NORMALS: Normal to inspection, nondistended, normoactive bowel sounds present, Soft to palpation, non-tender, No hepatosplenomegaly present, no masses and no bruits PALPATION: Yes Soft to palpation and Yes No hepatosplenomegaly present : COMMON NORMALS: Yes no CVA tenderness BLADDER/KIDNEY EXAM: Yes no CVA tenderness Back/Pelvis: COMMON NORMALS: no CVA tenderness, thoracic and lumbar spine normal to inspection, no thoracic nor lumbar tenderness, thoraco-lumbar ROM normal and straight leg raise negative bilaterally Extremity: COMMON NORMALS: normal to inspection, full ROM, capillary refill normal, no joint enlargement, no clubbing, cyanosis or edema, no calf tenderness and no pedal edema Neuro: COMMON NORMALS: patient oriented x3 SENSORIUM/ORIENTATION: Yes alert MENINGEAL SIGNS: Yes no meningeal signs Course Consultations: Consultation #1: I did speak with Dr. Chiang cardiology. We discussed patient's elevated troponin. Believe this is related to her chronic renal failure. She request 2-hour troponin to confirm EKG is unremarkable. We will continue to monitor patient Time: 11:59 Consultation #2: I spoke with Dr. Samson he will see the patient write addit ional orders. Time: 13:07 Vital Signs: Vital signs: Vital Signs Pulse Rate 117 H 11/27/20 13:15 Respiratory Rate 19 H 11/27/20 13:15 Blood Pressure 110/61 11/27/20 13:15 Pulse Oximetry 100 11/27/20 13:[address] [facility] - General Adult Lab Data: Labs: Lab Results 11/27/20 11/27/20 11/27/20 10:38 10:38 10:38 WBC 34.8 10^3/uL H* 1 0^3/uL (4.0-10.0) RBC 3.66 10^6/uL L 10 ^6/uL (4.1-5.3) Hgb 9.6 g/dL L g/dL (11.7-16.6) Hct 33.7 % L % (42.0-52.0) MCV 92.1 fl fl (80-94) MCH 26.2 pg L pg (28.0-34.0) MCHC 28.5 g/dL L g/dL (30.0-36.0) RDW 19.7 % H % (12.1-15.1) Plt Count 449 10^3/cmm H 10 ^3/cmm (130-400) MPV 8.9 fL fL (7.4-10.4) Neut % (Auto) 93.7 % % Lymph % (Auto) 2.1 % % [place] % (Auto) 3.3 % % Eos % (Auto) 0.0 % % Baso % (Auto) 0.2 % % Neut # (Auto) 32.56 10^3/uL H 1 0^3/uL (1.8-7.7) Lymph # (Auto) 0.7 10^3/uL L 10^ 3/uL (0.8-4.8) [place] # (Auto) 1.2 10^3/uL H 10^ 3/uL (0.2-0.9) Eos # (Auto) 0.0 10^3/uL 10^3/ uL (0.0-0.8) Baso # (Auto) 0.1 10^3/uL 10^3/ uL (0.0-0.1) Nucleated RBC % (a uto) 0.2 % % Nucleated RBCs # 0.1 /100WBC /100W BC PT 15.00 SECONDS H S ECONDS (12.1-14.9) INR 1.15 (0.8-1.2) APTT 47.5 SECONDS H SE CONDS (23.9-36.7) Sodium 136 mmol/L mmol/L (136-145) Potassium 4.0 mmol/L mmol/L (3.5-5.1) Chloride 99 mmol/L mmol/L (98-107) Carbon Dioxide 24 mmol/L mmol/L (22-29) Anion Gap 17.0 (5-19) BUN 56 mg/dL H mg/dL (8-23) Creatinine 3.8 mg/dL H mg/dL (0.7-1.2) GFR Calculation 16.1 mL/min L mL/ min (90-130) Glucose 189 mg/dL H mg/dL (65-115) Calculated Osmolal ity 303 mOsm/kg H mOs m/kg (285-295) Lactic Acid Calcium 7.2 mg/dL L mg/dL (8.5-10.5) Total Bilirubin 0.2 mg/dL mg/dL (0.15-1.2) AST 12 U/L U/L (0-40) ALT 16 U/L U/L (0-41) Alkaline Phosphata se 161 IU/L H IU/L (40-130) Troponin T Gen 5 n g/L NT-Pro-B Natriuret Pep 17679 pg/mL H pg/ mL (0-125) Total Protein 5.2 g/dL L g/dL (6.6-8.7) Albumin 1.5 g/dL L g/dL (3.5-5.2) Globulin 3.7 g/dL g/dL (1.3-4.6) 11/27/20 11/27/20 10:38 10:38 WBC RBC Hgb Hct MCV MCH MCHC RDW Plt Count MPV Neut % (Auto) Lymph % (Auto) [place] % (Auto) Eos % (Auto) Baso % (Auto) Neut # (Auto) Lymph # (Auto) [place] # (Auto) Eos # (Auto) Baso # (Auto) Nucleated RBC % (a uto) Nucleated RBCs # PT INR APTT Sodium Potassium Chloride Carbon Dioxide Anion Gap BUN Creatinine GFR Calculation Glucose Calculated Osmolal ity Lactic Acid 1.6 mmol/L mmol/L (0.5-2.2) Calcium Total Bilirubin AST ALT Alkaline Phosphata se Troponin T Gen 5 n g/L 274 ng/L H* ng/L (0-15) NT-Pro-B Natriuret Pep Total Protein Albumin Globulin Imaging Data^: CXR: Attestation: I personally reviewed and interpreted this imaging study as follows: Radiologist's impression: IMPRESSION: Infiltrates of unknown chronicity however compatible with acute/subacute pneumonitis. Infiltrative pattern suggestive of Covid pneumonitis. EKG Data^: EKG 1: Attestation: I personally reviewed and interpreted this EKG as follows: EKG interpretation date: 11/27/20 EKG interpretation time: 09:39 Prior EKG tracings: available for review Interpretation: Atrial fibrillation heart rate 85 Computer generated interpretation: Chest X-Ray 11/27/20 08:42 IMPRESSION: Infiltrates of unknown chronicity however compatible with acute/subacute pneumonitis. Infiltrative pattern suggestive of Covid pneumonitis. Discharge Plan Discharge Patient Disposition: Admitted As Inpatient Clinical Impression: Acute pneumonitis, Chronic kidney disease with end stage renal failure on dialysis, Leukocytosis, Elevated troponin, Congestive heart failure, Sepsis, Wound of foot, COPD (chronic obstructive pulmonary disease), Peritoneal dialysis catheter in place Condition: Stable Coding Level of Care Code ED Dining Room Host/Hostess for Chg Fwd Exam Comprehensive
[2020-11-27 10:49] LABS: Basophils # 0.1 10^3/uL (0.0-0.1); Basophils % 0.2 %; Hematocrit 33.7 % (42.0-52.0); Hemoglobin 9.6 g/dL (11.7-16.6); Lymphocytes # 0.7 10^3/uL (0.8-4.8); Lymphocytes % 2.1 %; Mean Corpuscular HGB Conc 28.5 g/dL (30.0-36.0); Mean Corpuscular Hemoglobin 26.2 pg (28.0-34.0); Mean Corpuscular Volume 92.1 fl (80-94); Mean Platelet Volume 8.9 fL (7.4-10.4); Monocytes # 1.2 10^3/uL (0.2-0.9); Monocytes % 3.3 %; Neutrophils # 32.56 10^3/uL (1.8-7.7); Neutrophils % 93.7 %; Nucleated Red Blood Cells # 0.1 /100WBC; Nucleated Red Blood Cells % 0.2 %; Platelet Count 449 10^3/cmm (130-400); Red Blood Count 3.66 10^6/uL (4.1-5.3); Red Cell Distribution Width 19.7 % (12.1-15.1)
[2020-11-27 11:01] LABS: INR 1.15 (0.8-1.2)
[2020-11-27 11:02] LABS: Partial Thromboplastin Time 47.5 SECONDS (23.9-36.7)
[2020-11-27 11:21] LABS: White Blood Count 34.8 10^3/uL (4.0-10.0)
[2020-11-27 11:39] LABS: Alanine Aminotransferase 16 U/L (0-41); Albumin Level 1.5 g/dL (3.5-5.2); Alkaline Phosphatase 161 IU/L (40-130); Aspartate Amino Transferase 12 U/L (0-40); Blood Urea Nitrogen 56 mg/dL (8-23); Calcium 7.2 mg/dL (8.5-10.5); Carbon Dioxide 24 mmol/L (22-29); Chloride 99 mmol/L (98-107); Globulin 3.7 g/dL (1.3-4.6); Glomerular Filtration Rate 16.1 mL/min (90-130); Glucose 189 mg/dL (65-115); NT Pro B Type Natriuretic Pept 13643 pg/mL (0-125); Osmolality Calculated 303 mOsm/kg (285-295); Sodium 136 mmol/L (136-145); Total Bilirubin 0.2 mg/dL (0.15-1.2); Total Protein 5.2 g/dL (6.6-8.7)
[2020-11-27 11:42] LABS: Lactic Sepsis W/Reflex 1.6 mmol/L (0.5-2.2)
[2020-11-27 11:49] LABS: Troponin T (5th) Once 274 ng/L (0-15)
[2020-11-27] MEDS: cefTRIAXone 1,000 MG in sodium chloride 0.9% (plus) 50 ML 100 MG IV (13:05)
--- NOTE | 2020-11-27 13:08 | PC.PHAR ---
pt states he takes care of his own medications-pt states he is taking lantus 10 units [facility] states [facility] last filled april 2020-
--- NOTE | 2020-11-27 13:35 | USCV_ITS ---
Helio Reynoso Age: 65 Gender: M : 1955 Exam Date: 11/27/2020 13:43 Ordering Phys: Arnaldo Samson MD Technologist: Beltran Rabago Exam Location: [facility] [place] Indication: BILAT LEG SWELLING HISTORY: Lower extremity swelling. Ulcers. PROCEDURES: The venous duplex Doppler examination of both lower extremities was performed in the standard fashion. The following venous structures were evaluated: common femoral vein, profunda vein, proximal portion of the greater saphenous vein, superficial femoral vein, and the popliteal vein. FINDINGS: Normal 2-D Doppler and augmentation and compressibility throughout the lower extremity venous structures. Additional imaging through the proximal calf veins also reveals no thrombus. Limited evaluation of the greater saphenous vein is patent with no thrombus. Bilateral subcutaneous edema. CONCLUSIONS No DVT bilateral lower extremities. Dr. Tatyana Victor DO (Electronically Signed) Final Date: 27 November 2020 15:00 S
[2020-11-27] MEDS: piperacillin-tazobactam 3.375 GM in sodium chloride 0.9% (plus) 50 ML IV (14:15)
[2020-11-27 14:18] LABS: Troponin 5 2HR 273.4 ng/L (0-15); Troponin 5 2HR Delta -1.4 ABS# (0-10)
[2020-11-27 14:19] LABS: SARS Covid-2 Antigen Negative (Negative)
--- NOTE | 2020-11-27 14:23 | PM.HP ---
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 Patient is chronically managed at the wound care clinic, he has developed recurrent left lower extremity plantar aspect diabetic ulcer, that has routinely received in debridement, has recently been on a course of IV antibiotics for greater than 6 weeks for osteomyelitis, exposed bone, discussions with patient were made about amputation but he has declined and has been hesitant about left lower extremity amputation. Currently he is having wound care at home, daily dressing changes, through wound care. He tells me that for the last few days he has been feeling well, no chest pain, no palpitations, shortness of breath, no fevers, no abdominal pain, he has received both Covid vaccinations, denies any cough. He tells me that last night he infused his his dialysate for his peritoneal dialysis, however he was not able to drain the dialysate, denies any abdominal pain, no nausea, no vomiting, has not had a bowel movement. During my examination emergency room, he was tachycardic heart rates in the 110s, normal sinus rhythm, blood pressures did drop into the 90s over 60s, but quickly rebounded to MAP in the 65, he is saturating in the high 90s on room 6 L, uses 4 L at home, afebrile, work-up in emergency room showed significant leukocytosis, 34.8, neutrophil count 32.56, lactic acid 1.6, troponin 274, rapid Covid negative, chest x-ray showed infiltrates of unknown chronicity however compatible with acute subacute pneumonitis, infiltrative pattern suggestive of Covid pneumonitis. Patient's PD catheter is in place, will have one of the [facility] nurses drain PD catheter, and sent off for cultures to evaluate for possible peritonitis. Will order CT scan of the abdomen pelvis to evaluate for possible peritonitis. Examination of patient's right eduardo showed an open store, serosanguineous drainage, with erythema with evidence of cellulitis. Left eduardo, erythema, swelling, evidence of cellulitis. Examination of left lower extremity, left foot, plantar aspect, reveals significant tunneling of a diabetic ulcer with serosanguineous discharge, with tunneling to the bone. Sepsis criteria met, multiple sources including bilateral extremity cellulitis, left lower extremity diabetic ulcer with signs of cellulitis infection osteomyelitis necrosis. Certainly with inability to drain his dialysate, and him sitting in his dialysis for over 12 hours, peritonitis is also a possibility. Currently patient is alert oriented x3, follows all commands, his only complaint is that he is having severe chills. Review of Systems Const: Reports: fatigue and malaise; Denies: fever(s) Eyes: Denies: change in vision or blurry vision ENMT: Denies: nasal congestion Card: Reports: edema and swelling of feet/ankles; Denies: chest pain or palpitations Resp: Denies: dyspnea, productive cough, non-productive cough or wheezing GI: Denies: abdominal pain, nausea, vomiting, hematemesis, diarrhea, constipation, hematochezia or melena : Denies: flank pain, difficulty urinating, dysuria or urinary frequency Musc: Denies: neck pain or back pain Skin/Breast: Denies: rash Neuro: Denies: headache(s), dizziness or vertigo Medications/Allergies Home Medications Medication Instructions Recorded Confirmed Last Taken Type budesonide-formoterol [Symbicort] 2 puff INHALATION BID 03/15/19 11/27/20 11/26/20 History levothyroxine 88 mcg PO QAM 03/15/19 11/27/20 11/26/20 History RenaPlex-D 1 tab PO QPM 08/19/19 11/27/20 11/26/20 History pantoprazole 40 mg PO BID 30 Days #30 tab 10/27/19 11/27/20 10/15/20 Rx metoprolol tartrate 25 mg tablet 12.5 mg PO BID 02/27/20 11/27/20 11/26/20 History furosemide 80 mg tablet 80 mg PO BID 06/03/20 11/27/20 11/26/20 History oxycodone-acetaminophen 1 tab PO Q6H PRN 07/09/20 11/27/20 10/15/20 History sodium bicarbonate 650 mg PO BID 07/09/20 11/27/20 10/15/20 History aspirin [Aspir-81] 81 mg PO QAM 11/27/20 11/27/20 11/26/20 History atorvastatin [Lipitor] 40 mg PO QPM 11/27/20 11/27/20 11/26/20 History gentamicin 1 applic TOPICAL .AFTER CLEANING 11/27/20 11/27/20 Unknown History SITE insulin glargine [Lantus Solostar 10 unit SUBCUT BEDTIME 11/27/20 11/27/20 11/26/20 History U-100 Insulin] magnesium oxide 400 mg PO QAM 11/27/20 11/27/20 11/26/20 History metolazone 5 mg PO .TWICE A WEEK 11/27/20 11/27/20 Unknown History Allergies Allergy/AdvReac Type Severity Reaction Status Date / Time No Known Allergies Allergy Verified 11/27/20 13:08 PFSH Acute PFSH: Medical History Altered mental status Blood transfusion abn reaction or complication, no procedure mishap Cataract disorder type 14 COPD (chronic obstructive pulmonary disease) Diastolic congestive heart failure ESRD (end stage renal disease) Hypertension Hypothyroidism Insulin dependent type 2 diabetes mellitus Iron deficiency anemia Nonalcoholic liver disease, chronic Secondary hyperparathyroidism Surgical History H/O esophagogastroduodenoscopy 2020 History of open reduction and internal fixation (ORIF) procedure Peritoneal dialysis catheter in place (03/14/20) S/P dialysis catheter insertion (08/30/19) Status post creation of arteriovenous fistula Family History Other CAD (coronary artery disease) Hyperlipidemia Hypertension Denies family history of Anesthesia complication Bleeding disorder Cancer Social History Alcohol intake: never Household members: family and other Details: Lives with his mother Current occupational status: disabled History of recent travel: No Vitals/I&O/Wt Last Vital Signs Pulse 117 H 11/27/20 13:15 Resp 19 H 11/27/20 13:15 BP 110/61 11/27/20 13:15 Pulse Ox 100 11/27/20 13:15 11/26/20 11/27/20 11/27/20 22:59 06:59 14:59 Intake Total 50 / 50 Balance 50 / 50 Weight last 48 hrs Weight 69.4 kg Physical Exam Const: COMMON NORMALS: no acute distress and patient oriented x3 GENERAL APPEARANCE: cooperative and comfortable Eye: COMMON NORMALS: Equal, round and reactive pupils present and EOMs intact bilaterally GENERAL EYE: appearance normal, both eyes and all related structures PUPIL: Yes Equal, round and reactive pupils present Neck/C-Spine: COMMON NORMALS: full ROM and no lymphadenopathy THYROID: Thyroid normal Resp: COMMON NORMALS: normal respiratory effort, No retractions, No use of accessory muscles and clear to auscultation bilaterally AUSCULTATION: clear to auscultation bilaterally Cardio: COMMON NORMALS: regular rhythm, S1 normal heart sound present, S2 normal heart sound present, No gallops present (Cardio), No clicks present (Cardio) and No murmurs present (Cardio) RATE: tachycardic RHYTHM: regular rhythm HEART SOUNDS: S1 normal heart sound present and S2 normal heart sound present GI: COMMON NORMALS: Normal to inspection, nondistended, normoactive bowel sounds present, Soft to palpation and non-tender OTHER: PD catheter in place with abdominal binder Extremity: OTHER: Right lower extremity, right eduardo, superficial diabetic ulcer measuring 1 cm long, half centimeter in width, with surrounding erythema, has erythema of right eduardo extending down to right ankle Left lower extremity, erythema of left eduardo Left lower extremity, first digit amputation Left lower extremity, plantar aspect, open diabetic ulcer, right under under remaining four digits, round, measuring 2 x 3 cm, and 2 cm deep, tunneling down to bone, exposed bone, foul odor, serosanguineous discharge, yellow-green Also left lower extremity, multiple superficial ulcers between second and third digit, third and fourth digit, lateral aspect of fifth digit Neuro: COMMON NORMALS: patient oriented x3, CN's II-XII intact bilaterally, moves all extremities and no focal motor deficits Psych: COMMON NORMALS: mental status grossly normal, Normal thought process present and cooperative THOUGHT PROCESS: Normal thought process present Data : 11/27/20 10:38 11/27/20 10:38 Micro: Microbiology 11/27/20 11:38 Blood Culture - Preliminary Blood SPECIMEN COLLECTED 11/27/20 10:38 Blood Culture - Preliminary Blood SPECIMEN COLLECTED A&P Assessment and plan (1) Sepsis: -Sepsis -Likely source of infection is left lower extremity diabetic ulcer with tunneling to bone, with necrosis, osteomyelitis -Has completed 6 weeks of IV antibiotics, repeat debridement, discussions in the past about amputation due to nonhealing ulcer is infection, cultures in the past growing VRE Pseudomonas, -Also has cellulitis of right eduardo, left eduardo, multiple small open sores -No abdominal pain complaints, the PD catheter is not flushing, dialysate has not been removed in over 12 hours -Chest x-ray shows pneumonitis, concerns for possible Covid pneumonitis, rapid Covid negative, has no respiratory complaints, is on 6 L, clinically I feel that this is likely fluid overload -Met sepsis criteria on admission with elevated leukocytosis, source of infection, hypotension, tachycardia, Plan: -Admit to ICU -Obtain CT scan abdomen pelvis to eval for peritonitis, culture dialysate fluid -Obtain cultures left lower extremity -Levophed to maintain MAP in 65, avoid fluids given his history of diastolic CHF and propensity for fluid overload -Start Zyvox, Zosyn -Consulted general surgery for debridement of left lower extremity, possible discussion of amputation, in addition as his PD catheter is not flushing, will assess with nursing staff, possible replacement, possible peritonitis as another source of his infection -Consulted nephrology service -Heparin for DVT prophylaxis -Patient DNR/DNI NSTEMI: -Baseline troponin II 74, no acute ST-T wave changes, no chest pain complaints -Likely type II NSTEMI, from sepsis as above, however cannot rule out underlying cardiac etiology -Continue aspirin, statin, serial troponins, serial EKGs, monitor for chest pain, End-stage renal disease on peritoneal dialysis, as above Generalized weakness secondary to sepsis, as above Diastolic CHF avoid fluid overload Insulin-dependent type 2 diabetes mellitus, will get an A1c, low-dose sliding scale COPD currently not in exacerbation Pneumonitis, concerns for Covid on chest x-ray, currently on 6 L, no respiratory complaints, rapid Covid negative, clinically I feel that this is fluid overload as patient has not had his dialysate removed, await pro-Dennis, will do a trial of Lasix Acute on chronic anemia, second stage renal disease, murmur suppression for sepsis, continue to monitor Peripheral arterial disease -underwent peripheral angiogram with orbital atherectomy and balloon angioplasty of the left superficial femoral. -Right severe SFA stenosis Status: Acute (2) NSTEMI (non-ST elevated myocardial infarction): Status: Acute (3) End stage renal disease: Status: Acute (4) Insulin dependent type 2 diabetes mellitus: Status: Acute (5) Peritoneal dialysis catheter in place: Status: Acute (6) Generalized weakness: Status: Acute (7) Secondary hyperparathyroidism: Status: Acute (8) Anemia: Status: Acute Qualifiers: Anemia type: due to chronic kidney disease Chronic kidney disease stage: on chronic dialysis Qualified Code(s): N18.6 - End stage renal disease; D63.1 - Anemia in chronic kidney disease; Z99.2 - Dependence on renal dialysis (9) Hypothyroidism: Status: Acute (10) Diastolic congestive heart failure: Status: Acute (11) COPD (chronic obstructive pulmonary disease): Status: Acute Attestations Medical Necessity Statement*: Patient requires hospitalization, inpatient, pending two midnights, for sepsis secondary to left lower extremity diabetic ulcer, possible peritonitis, with NSTEMI, anemia, Coding Level of Care Code Acute Casing Cleaner for [facility] Fwd Diagnoses Sepsis A41.9 NSTEMI (non-ST elevated myocardial infarction) I21.4 End stage renal disease N18.6 Insulin dependent type 2 diabetes mellitus E11.9; Z79.4 Peritoneal dialysis catheter in place Z99.2 Generalized weakness R53.1 Secondary hyperparathyroidism N25.81 Anemia N18.6; D63.1; Z99.2 Anemia type: due to chronic kidney disease Chronic kidney disease stage: on chronic dialysis Hypothyroidism E03.9 Diastolic congestive heart failure I50.30 COPD (chronic obstructive pulmonary disease) J44.9
--- NOTE | 2020-11-27 14:32 | CT_ITS ---
WS: [id number] CT abdomen pelvis wo con [id number] REASON FOR EXAM: pd catheter not flushing, elevated wbc, r/o peritonitis IV CONTRAST ADMINISTERED: None. TOTAL EXAM DLP: 1172.[address] scans at [facility] use at least one of these dose optimization techniques: automat ed exposure control; mA and/or kV adjustment per patient size (includes targeted exams where dose is matched to clinical indication); or iterative reconstruction. FINDINGS: ABDOMEN: Unenhanced liver, spleen, and pancreas are unremarkable. Cholelithiasis. No abdominal mass or adenopathy. Free peritoneal fluid with multiple air-fluid levels anteriorly. Large right flank hernia containing fat and right colon. A portion of the colon within the hernia sac has an edematous wall and there appears to be submucosal and intramural air. There is a fluid ji ection containing small bubbles of air within the hernia sac as well. The fat within the hernia sac appears edematous. The portions of colon entering and exiting the hernia sac are decompressed. The loops of small bowel within the abdomen show some degenerative dilatation and mural thickening. The subcutaneous fat adjacent to the hernia sac is edematous. PELVIS: Peritoneal dialysis catheter enters the left lower abdomen and courses into the pelvis where it is co iled. There is no fluid in the pelvis or related to the peritoneal dialysis catheter. No pelvic mass. Unremarkable bladder. CT/CT abdomen pelvis wo con [id number] IMPRESSION: The fluid collection in the hernia sac is likely a significantly dilated portio n of colon, closed loop obstruction. Remaining: in the hernia sac is edematous and has mural air suggesting vascular compromise. Possibly the bowel has perfor ated. The free fluid and air in the peritoneum is likely related to peritoneal dialys is and the inability to remove/drain the dialysate due to the catheter position . There is edema in the the small bowel loops within the peritoneal cavity. This could be reaction to infected peritoneal fluid or ischemia. Results of the examination were called to the attending hospitalist (Dr. Keli morris) at approximately 4:00 PM.
[2020-11-27 14:48] LABS: NT Pro B Type Natriuretic Pept 13664 pg/mL (0-125); Procalcitonin 1.38 ng/mL (0-0.5)
[2020-11-27 14:59] LABS: C Reactive Protein 245.5 mg/L (0.0-4.9)
[2020-11-27] MEDS: linezolid premix 600 MG/300 ML PREMIX 300 MG IV (15:37)
[2020-11-27] MEDS: vancomycin 1,000 MG in sodium chloride 0.9% 250 ML 250 MG IV (15:38)
--- NOTE | 2020-11-27 15:45 | PC.NURSE ---
Priory to administration of vancomycin and linezolid I checked with [employer]ocromedic and it showed compatibilty.
--- NOTE | 2020-11-27 15:48 | P.CONIM_ITS ---
Providers/Reason For Consult Consulting Physician/Specialty*: Arely Mcdaniel D.O., telenephrology Reason for Consult*: ESRD Attending Physician: Arnaldo Samson MD Primary Care Provider: Carla Ceballos MD History of Present Illness History of Present Illness Helio Reynoso is a 65 year old male who presented with PD catheter unable to drain this AM. Uses cycler at night. Performs dialysis himself. States no alarms overnight, but unable to drain this AM. Came to ER because he was not feeling well. Two days ago saw blood in PD fluid. Minimal abdominal discomfort. Meds/Allergies Home Medications and Allergies Home Medications Medication Instructions Recorded Confirmed Last Taken Type budesonide-formoterol [Symbicort] 2 puff INHALATION BID 03/15/19 11/27/20 11/26/20 History levothyroxine 88 mcg PO QAM 03/15/19 11/27/20 11/26/20 History RenaPlex-D 1 tab PO QPM 08/19/19 11/27/20 11/26/20 History pantoprazole 40 mg PO BID 30 Days #30 tab 10/27/19 11/27/20 10/15/20 Rx metoprolol tartrate 25 mg tablet 12.5 mg PO BID 02/27/20 11/27/20 11/26/20 History furosemide 80 mg tablet 80 mg PO BID 06/03/20 11/27/20 11/26/20 History oxycodone-acetaminophen 1 tab PO Q6H PRN 07/09/20 11/27/20 10/15/20 History sodium bicarbonate 650 mg PO BID 07/09/20 11/27/20 10/15/20 History aspirin [Aspir-81] 81 mg PO QAM 11/27/20 11/27/20 11/26/20 History atorvastatin [Lipitor] 40 mg PO QPM 11/27/20 11/27/20 11/26/20 History gentamicin 1 applic TOPICAL .AFTER CLEANING 11/27/20 11/27/20 Unknown History SITE insulin glargine [Lantus Solostar 10 unit SUBCUT BEDTIME 11/27/20 11/27/20 11/26/20 History U-100 Insulin] magnesium oxide 400 mg PO QAM 11/27/20 11/27/20 11/26/20 History metolazone 5 mg PO .TWICE A WEEK 11/27/20 11/27/20 Unknown History Allergies Allergy/AdvReac Type Severity Reaction Status Date / Time No Known Allergies Allergy Verified 11/27/20 13:08 Current Medications Current Medications Generic Name Dose Route Start Last Admin Trade Name Slavaq PRN Reason Stop Dose Admin Linezolid 600 mg in 300 mls @ 300 mls/hr 11/27/20 15:00 11/27/20 15:37 Zyvox Premix IV 300 mls/hr Q12H LENNIE Administration Protocol Vancomycin HCl 1,000 mg/ 250 mls @ 250 mls/hr 11/27/20 15:15 11/27/20 15:38 Sodium Chloride IV 11/27/20 16:14 250 mls/hr ONCE ONE Administration Protocol PFSH Acute PFSH: Medical History Altered mental status Blood transfusion abn reaction or complication, no procedure mishap Cataract disorder type 14 COPD (chronic obstructive pulmonary disease) Diastolic congestive heart failure ESRD (end stage renal disease) Hypertension Hypothyroidism Insulin dependent type 2 diabetes mellitus Iron deficiency anemia Nonalcoholic liver disease, chronic Secondary hyperparathyroidism Surgical History H/O esophagogastroduodenoscopy 2019 History of open reduction and internal fixation (ORIF) procedure Peripheral arterial disease with history of revascularization Peritoneal dialysis catheter in place (03/14/20) S/P dialysis catheter insertion (08/30/19) Status post creation of arteriovenous fistula Family History Other CAD (coronary artery disease) Hyperlipidemia Hypertension Denies family history of Anesthesia complication Bleeding disorder Cancer Social History Alcohol intake: never Household members: family and other Details: Lives with his mother Current occupational status: disabled History of recent travel: No Vitals/I&O/Wt Last Vital Signs Temp 95.6 F L 11/27/20 14:48 Pulse 100 11/27/20 14:48 Resp 18 11/27/20 14:48 BP 89/54 11/27/20 14:48 Pulse Ox 100 11/27/20 14:48 11/27/20 11/27/20 11/27/20 06:59 14:59 22:59 Intake Total 50 / 50 50 / 100 Balance 50 / 50 50 / 100 Weight last 48 hrs Weight 69.4 kg Physical Exam Const: COMMON NORMALS: no acute distress; negative for healthy appearing GENERAL APPEARANCE: cooperative GI: OTHER: PD exit site no redness or drainage Extremity: GENERAL: Yes edema (2-3+ bilateral) LEFT LOWER EXTREMITY: Yes foot & digits (large wound bottom of left foot, prior 1st toe amputation) Data Micro: Micro: Microbiology 11/27/20 11:38 Blood Culture - Pr eliminary Blood SPECIMEN [facility] 11/27/20 10:38 Blood Culture - Pr eliminary Blood SPECIMEN [facility] Imaging^: CT Abd/Pel: Radiologist's impression: + ascites, + free air (may be related to PD) A&P Additional A&P Information 1. ESRD, on peritoneal dialysis 2. Sepsis, open wound left foot 3. Anemia Recommend: attempt to drain PD fluid. send for culture and cell count. No indication for dialysis tonight. Panculture, IV antibiotics. Surgical evaluation foot. Consult Attestations Medical Necessity Statement: critically ill Time Spent in Patient Care: 16 - 35 minutes Coding Level of Care Code Acute Sisal Picker for Brynn Castro
--- NOTE | 2020-11-27 15:59 | CTR_ITS ---
PROCEDURE INFORMATION: Exam: CT Abdomen And Pelvis With Contrast Exam date and time: 11/27/2020 3:59 PM Age: 65 years old Clinical indication: Other: Hernia; Prior surgery; Surgery type: Dialysis cath; Additional info: Incarcerated hernia, bowel ischemia TECHNIQUE: Imaging protocol: Computed tomography of the abdomen and pelvis with contrast. Radiation optimization: All CT scans at this facility use at least one of these dose optimization techniques: automated exposure control; mA and/or kV adjustment per patient size (includes targeted exams where dose is matched to clinical indication); or iterative reconstruction. Contrast material: VISI 320; Contrast volume: 95 ml; Contrast route: INTRAVENOUS (IV); COMPARISON: CT abdomen pelvis wo con [id number] 11/27/2020 3:10 PM RADIATION DOSE METRICS: Total DLP (mGy-cm): 2872.72 FINDINGS: Tubes, catheters and devices: Peritoneal dialysis catheter noted with distal portion in the midline of the pelvis, unchanged. Lungs: Nonspecific focal infiltrates at the lung bases. Pleural spaces: Small right pleural effusion. Trace left pleural effusion. Mediastinal space: There is a small hiatal hernia present. Liver: The liver is unremarkable in appearance. Gallbladder and bile ducts: Calcified gallstones in the gallbladder. There are no secondary signs of cholecystitis. Pancreas: The pancreas is normal in appearance. No pancreatic duct dilatation. Spleen: Calcified granulomas are noted in the spleen. Adrenal glands: The adrenal glands appear within normal limits. Kidneys and ureters: Simple appearing bilateral renal cysts, measuring up to 10 mm. No solid renal mass. No hydronephrosis. Stomach and bowel: No acute gastric abnormality demonstrated. Mild diffuse mural thickening of the small bowel, which may be related to adjacent peritoneal process. No small bowel obstruction. Appendix: No evidence of appendicitis. Intraperitoneal space: There is pneumoperitoneum noted. A large amount of intraperitoneal fluid is noted. Vasculature: The aorta is atherosclerotic. No aortic aneurysm. The aorta is atherosclerotic. No aortic aneurysm. Lymph nodes: No pathologically enlarged lymph nodes. Urinary bladder: Unremarkable as visualized. Reproductive: Unremarkable as visualized. Bones/joints: Advanced degenerative change of the lumbar spine and bilateral hips. Soft tissues: There is a right lateral/right flank hernia. A portion of the ascending colon is located within the hernia. This portion of the colon and demonstrates mild mural thickening, unchanged. There is also ascites and minimal free air within the hernia, similar to the remainder of the peritoneal space. No findings of bowel obstruction are noted. No definite bowel perforation appreciated. Diffuse subcutaneous edema in the abdomen and pelvis. CT/CT abdomen pelvis w con* [id number] IMPRESSION: 1. There is pneumoperitoneum noted. A large amount of intraperitoneal fluid is noted. This is unchanged from the previous study of 11/27/2020 at 3:12 p.m. 2. Peritoneal dialysis catheter noted with distal portion in the midline of the pelvis, unchanged. 3. There is a right lateral/right flank hernia. A portion of the ascending colon is located within the hernia. This portion of the colon and demonstrates mild mural thickening, unchanged. There is also ascites and minimal free air within the hernia, similar to the remainder of the peritoneal space. No findings of bowel obstruction are noted. No definite bowel perforation appreciated. Consider repeat CT imaging with water-soluble enteric contrast to further assess the bowel integrity. 4. Mild diffuse mural thickening of the small bowel, which may be related to adjacent peritoneal process. No small bowel obstruction. 5. Calcified gallstones in the gallbladder. There are no secondary signs of cholecystitis. 6. Nonspecific focal infiltrates at the lung bases. This is unchanged. 7. No new abnormality demonstrated, when compared to the prior study. COMMENTS: Consistent with the [employer]'s Incidental Findings Committee white paper (J Am Gregory Radiol 2018): Any incidental renal lesion less than 1 cm or classified as too small to characterize, or any incidental cystic renal lesion characterized as simple-appearing, is likely benign. No follow-up imaging is recommended for these lesions per consensus recommendations based on imaging criteria. Radiation Dose CTDIVOL = (mGy): DLP = 2872.72 (mGy-cm)
--- NOTE | 2020-11-27 16:04 | CTR_ITS ---
PROCEDURE INFORMATION: Exam: CT Left Lower Extremity With Contrast, Foot Exam date and time: 11/27/2020 4:04 PM Age: 65 years old Clinical indication: Other: Abscess; Prior surgery TECHNIQUE: Imaging protocol: CT of the Left lower extremity with intravenous contrast was performed. Exam focused on the foot. Radiation optimization: All CT scans at this facility use at least one of these dose optimization techniques: automated exposure control; mA and/or kV adjustment per patient size (includes targeted exams where dose is matched to clinical indication); or iterative reconstruction. Contrast material: VISI 320; Contrast volume: 95 ml; Contrast route: INTRAVENOUS (IV); COMPARISON: CT lower leg LT wo con* [id number] 07/11/2020 3:01 PM RADIATION DOSE METRICS: Total DLP (mGy-cm): 152.47 FINDINGS: Bones/joints: Destructive changes of the distal metatarsals and phalanges, which may be related to prior surgery. The tarsals and metatarsals appear intact. Status post ORIF of the distal tibia. Soft tissues: Diffuse subcutaneous edema in the lower leg. There is a fluid collection in the superficial plantar soft tissues, measuring 2.2 cm transverse by 1.2 cm AP x 6.0 cm longitudinal, consistent with an abscess. Additional fluid collection seen in the deep soft tissues adjacent to the proximal metatarsals. This collection measures 1.1 cm transverse x 0.8 cm AP x 1.0 cm craniocaudal, also consistent with abscess. CT/CT foot LT w con [id number] IMPRESSION: 1. There is a fluid collection in the superficial plantar soft tissues, measuring 2.2 cm transverse by 1.2 cm AP x 6.0 cm longitudinal, consistent with an abscess. 2. Additional fluid collection seen in the deep soft tissues adjacent to the proximal metatarsals. This collection measures 1.1 cm transverse x 0.8 cm AP x 1.0 cm craniocaudal, also consistent with abscess. 3. Destructive changes of the distal metatarsals and phalanges, which may be related to prior surgery. Radiation Dose CTDIVOL = (mGy): DLP = 152.47 (mGy-cm)
--- NOTE | 2020-11-27 16:07 | PC.NURSE ---
Called and gave report to Catrachito OZUNA. Catrachito suggested that I reduce the vancomycin down to 150 ml/hr. Provider came by and reported that he wanted a CT of the abdomen and requested a central line be placed. Called and notified SULMA Winston.
--- NOTE | 2020-11-27 16:38 | XRR_ITS ---
PROCEDURE INFORMATION: Exam: XR Abdomen Exam date and time: 11/27/2020 4:38 PM Age: 65 years old Clinical indication: Device placement; Vascular catheter; Additional info: Line placement TECHNIQUE: Imaging protocol: XR of the abdomen. Views: Frontal supine view of the abdomen. 1 View. COMPARISON: CT abdomen pelvis w con* [id number] 11/27/2020 4:48 PM FINDINGS: Tubes, catheters and devices: Right femoral line noted with distal tip overlying the lower lumbar spine, likely within the right common iliac vein. Gastrointestinal tract: Nonobstructive intestinal gas pattern demonstrated. Bones/joints: No acute abnormality. XR/XR KUB portable [id number] IMPRESSION: Right femoral line noted with distal tip overlying the lower lumbar spine, likely within the right common iliac vein. Radiation Dose CTDIVOL = (mGy): DLP = (mGy-cm)
[2020-11-27] MEDS: iodixanol 320 mg/mL 100mL Btl IV ×2 (16:59→17:01)
--- NOTE | 2020-11-27 17:07 | PM.CONSULT ---
Providers/Reason For Consult Consulting Physician/Specialty*: General Surgery Dr. Steinberg Reason for Consult*: Sepsis with necrotic left foot wound Attending Physician: Arnaldo Samson MD Primary Care Provider: Carla Ceballos MD History of Present Illness History of Present Illness Helio Reynoso is a 65 year old male Who presented to the ER today with complaints of generalized weakness and shortness of breath. Patient has ESRD and is on home peritoneal dialysis but he was unable to drain the fluid yesterday. Patient has a chronic wound on his left foot for which amputation has been recommended in the past but patient has refused and has therefore undergone multiple debridements. He denies any abdominal pain, nausea or vomiting and has been having normal bowel function Review of Systems General: Reports: 10 or more systems reviewed and unremarkable except in HPI and below Meds/Allergies Home Medications and Allergies Home Medications Medication Instructions Recorded Confirmed Last Taken Type budesonide-formoterol [Symbicort] 2 puff INHALATION BID 03/15/19 11/27/20 11/26/20 History levothyroxine 88 mcg PO QAM 03/15/19 11/27/20 11/26/20 History RenaPlex-D 1 tab PO QPM 08/19/19 11/27/20 11/26/20 History pantoprazole 40 mg PO BID 30 Days #30 tab 10/27/19 11/27/20 10/15/20 Rx metoprolol tartrate 25 mg tablet 12.5 mg PO BID 02/27/20 11/27/20 11/26/20 History furosemide 80 mg tablet 80 mg PO BID 06/03/20 11/27/20 11/26/20 History oxycodone-acetaminophen 1 tab PO Q6H PRN 07/09/20 11/27/20 10/15/20 History sodium bicarbonate 650 mg PO BID 07/09/20 11/27/20 10/15/20 History aspirin [Aspir-81] 81 mg PO QAM 11/27/20 11/27/20 11/26/20 History atorvastatin [Lipitor] 40 mg PO QPM 11/27/20 11/27/20 11/26/20 History gentamicin 1 applic TOPICAL .AFTER CLEANING 11/27/20 11/27/20 Unknown History SITE insulin glargine [Lantus Solostar 10 unit SUBCUT BEDTIME 11/27/20 11/27/20 11/26/20 History U-100 Insulin] magnesium oxide 400 mg PO QAM 11/27/20 11/27/20 11/26/20 History metolazone 5 mg PO .TWICE A WEEK 11/27/20 11/27/20 Unknown History Allergies Allergy/AdvReac Type Severity Reaction Status Date / Time No Known Allergies Allergy Verified 11/27/20 13:08 Current Medications Current Medications Generic Name Dose Route Start Last Admin Trade Name Freq PRN Reason Stop Dose Admin Linezolid 600 mg in 300 mls @ 300 mls/hr 11/27/20 15:00 11/27/20 15:37 Zyvox Premix IV 300 mls/hr Q12H LENNIE Administration Protocol PFSH Acute PFSH: Medical History Altered mental status Blood transfusion abn reaction or complication, no procedure mishap Cataract disorder type 14 COPD (chronic obstructive pulmonary disease) Diastolic congestive heart failure ESRD (end stage renal disease) Hypertension Hypothyroidism Insulin dependent type 2 diabetes mellitus Iron deficiency anemia Nonalcoholic liver disease, chronic Secondary hyperparathyroidism Surgical History (Updated 11/27/20 @ 17:13 by Giovanni Steinberg MD) H/O esophagogastroduodenoscopy 2019 History of open reduction and internal fixation (ORIF) procedure Peripheral arterial disease with history of revascularization Peritoneal dialysis catheter in place (03/14/20) S/P dialysis catheter insertion (08/30/19) Status post creation of arteriovenous fistula Family History Other CAD (coronary artery disease) Hyperlipidemia Hypertension Denies family history of Anesthesia complication Bleeding disorder Cancer Social History Alcohol intake: never Household members: family and other Details: Lives with his mother Current occupational status: disabled History of recent travel: No Vitals/I&O/Wt Last Vital Signs Temp 95.6 F L 11/27/20 14:48 Pulse 100 11/27/20 14:48 Resp 18 11/27/20 14:48 BP 89/54 11/27/20 14:48 Pulse Ox 100 11/27/20 14:48 11/27/20 11/27/20 11/27/20 06:59 14:59 22:59 Intake Total 50 / 100 50 / 100 Balance 50 / 100 50 / 100 Weight last 48 hrs Weight 153 lb Physical Exam Narrative: EXAM NARRATIVE: HEENT: Normocephalic Eye: Sclera /conjunctiva normal Respiratory and chest: Bilateral clear breath sounds on auscultation Cardiovascular: Normal S1 and S2 heart sounds Abdomen: Soft to palpation, nontender, nondistended, PD catheter in place, patient has a large right flank hernia, nontender Neurological: Oriented to place person and time Skin: Intact, bilateral lower extremity chronic lymphedema with necrotic wound on the plantar aspect of the left foot Data Micro: Micro: Microbiology 11/27/20 11:38 Blood Culture - Pr eliminary Blood SPECIMEN [facility] 11/27/20 10:38 Blood Culture - Pr eliminary Blood SPECIMEN [facility] A&P Assessment and plan (1) Sepsis: Patient has a necrotic wound,. Patient could have peritonitis from his PD catheter.his abdominal exam was completely benign. WBC 34.8 CT abdomen pelvis performed today showed fluid collection in the hernia sac with closed loop obstruction and possible vascular compromise. Findings concerning for ischemia. Obtain CTA abdomen pelvis rule out ischemic bowel Continue IV antibiotics and fluid resuscitation as per hospitalist service Status: Acute (2) Wound of foot: Patient is a chronic left foot wound with necrotic tissue. Discussed with the patient the possibility of sepsis secondary to necrotic wound/cellulitis. Patient does not want to undergo amputation. Plan for CT lower extremity rule out any underlying abscess Plan for debridement left foot under MAC tomorrow Status: Acute Consult Attestations Medical Necessity Statement: As per attending physician Coding Level of Care Code Acute Dance Entertainer for [facility] Diagnoses Sepsis A41.9 Wound of foot S91.309A
[2020-11-27 17:40] LABS: Troponin 5 6HR 243.5 ng/L (0-15)
[2020-11-27 18:21] LABS: Glucose Point of Care 178 mg/dL (70-110)
[2020-11-27] MEDS: heparin 5,000 unit/mL INJ 1 mL 5000 UNIT SUBCUT (18:22)
[2020-11-27] MEDS: famotidine 20 mg/2 mL INJ IVP (18:22)
[2020-11-27] MEDS: atorvastatin 40 mg Tablet PO (18:22)
[2020-11-27] MEDS: pantoprazole DR 40 mg Tablet PO (18:22)
[2020-11-27] MEDS: sodium bicarbonate 650 mg Tablet PO (18:23)
[2020-11-27 18:48] LABS: Thyroid Stimulating Hormone 1.51 uIU/mL (0.27-4.20)
--- NOTE | 2020-11-27 19:00 | ECG_ITS ---
[facility] Test Date: 2020-11-27 Pat Name: Helio Reynoso Department: Room: Gender: Male Quality Compliance Coordinator: : 1955 Requested By: Fadi Cintron Order Number: [id number] Page MD: Lam Murguia M.D. Measurements Intervals [place] Rate: 86 P: 85 MS: 143 QRS: 47 QRSD: 85 T: 174 QT: 403 QTc: 484 Interpretive Statements SINUS RHYTHM WITH OCCASIONAL SUPRAVENTRICULAR PREMATURE COMPLEXES LOW QRS VOLTAGE IN PRECORDIAL LEADS [QRS DEFLECTION < 1.0 mV IN CHEST LEADS] MODERATE T-WAVE ABNORMALITY, CONSIDER LATERAL ISCHEMIA [-0.1+ mV T-WAVE IN I/aVL/V5/V6] Compared to ECG 11/27/2020 09:39:51 Possible ischemia now present Atrial fibrillation no longer present T-wave abnormality still present Electronically Signed On 11-27-2020 23:07:19 CDT by Lam Murguia M.D. [id number]
[2020-11-27 20:58] LABS: Estmated Average Glucose 137; Hemoglobin A1C 6.4 % (4.0-6.0)
[2020-11-27 21:05] LABS: Glucose Point of Care 176 mg/dL (70-110)
[2020-11-28] VITALS (28 sets, daily range): BP systolic 79–138; BP diastolic 40–79; PULSE 71–102; RESP 16–27; TEMP 35.5–36.6; O2SAT 94–100
[2020-11-28] MEDS: piperacillin-tazobactam 3.375 GM in sodium chloride 0.9% (plus) 50 ML IV ×2 (02:24→13:35)
[2020-11-28 02:30] LABS: Mononuclear #, Pertinoneal Fl 0.048 10^3/uL; Polynuclear # Cells, Perit 1.265 10^3/uL
[2020-11-28] MEDS: linezolid premix 600 MG/300 ML PREMIX 300 MG IV ×2 (02:32→15:23)
[2020-11-28 03:43] LABS: Appearance, Peritoneal Fluid Cloudy (Clear); Color, Peritoneal Fluid Slight Pink (Pale Yellow)
[2020-11-28 03:44] LABS: Pathology Referral Yes; RBC Pertioneal Fluid 6 10^3/uL; WBC Peritoneal Fluid 1313 /uL
[2020-11-28] MEDS: levothyroxine 88 mcg Tablet PO (05:13)
[2020-11-28] MEDS: magnesium oxide 400 mg tablet PO (05:13)
[2020-11-28] MEDS: aspirin 81 mg EC Tablet PO (05:13)
[2020-11-28 05:33] LABS: Hematocrit 26.9 % (42.0-52.0); Hemoglobin 7.8 g/dL (11.7-16.6); Mean Corpuscular Hemoglobin 26.3 pg (28.0-34.0); Mean Corpuscular Volume 90.6 fl (80-94); Mean Platelet Volume 9.3 fL (7.4-10.4); Platelet Count 427 10^3/cmm (130-400); Red Blood Count 2.97 10^6/uL (4.1-5.3); Red Cell Distribution Width 19.6 % (12.1-15.1)
[2020-11-28 05:43] LABS: INR 1.41 (0.8-1.2)
[2020-11-28 05:47] LABS: Slide Review Slide Review Perform; White Blood Count 37.7 10^3/uL (4.0-10.0)
[2020-11-28 05:49] LABS: Absolute Neutrophil 35.1 10^3/cmm (1.4-6.5); Absolute Segmented Neutrophil 24.1 10/cmm (1.6-7.1); Band Neutrophils Absolute 10.9 10^3/cmm (0.0-1.2); Eosinophils 0 %; Hypochromasia 1+; Lymphocytes 5 %; Lymphocytes Absolute 1.9 10^3/cmm (1.2-3.4); Monocytes Absolute 0.8 10^3/cmm (0.1-0.6); Platelet Estimate Normal (Normal); Segmented Neutrophils 64 %; Total Cells Counted 100 (0-100)
[2020-11-28 05:50] LABS: Anisocytosis 1+; Stomatocytes Trace
[2020-11-28 05:51] LABS: Basophilic Stippling 1+; Poikilocytosis Trace
[2020-11-28 06:01] LABS: NT Pro B Type Natriuretic Pept 10365 pg/mL (0-125); Procalcitonin 1.48 ng/mL (0-0.5)
[2020-11-28 06:12] LABS: Alanine Aminotransferase 12 U/L (0-41); Albumin Level 1.3 g/dL (3.5-5.2); Alkaline Phosphatase 142 IU/L (40-130); Anion Gap 18.8 (5-19); Aspartate Amino Transferase 9 U/L (0-40); Blood Urea Nitrogen 59 mg/dL (8-23); C Reactive Protein 283.5 mg/L (0.0-4.9); Calcium 6.8 mg/dL (8.5-10.5); Carbon Dioxide 25 mmol/L (22-29); Chloride 98 mmol/L (98-107); Creatine Phosphokinase 36 U/L (39-308); Ferritin 701 ng/mL (30-400); Globulin 3.2 g/dL (1.3-4.6); Glomerular Filtration Rate 15.6 mL/min (90-130); Glucose 128 mg/dL (65-115); Magnesium 1.5 mg/dL (1.7-2.3); Osmolality Calculated 304 mOsm/kg (285-295); Potassium 3.8 mmol/L (3.5-5.1); Sodium 138 mmol/L (136-145); Total Bilirubin 0.2 mg/dL (0.15-1.2); Total Protein 4.5 g/dL (6.6-8.7)
[2020-11-28] MEDS: pantoprazole DR 40 mg Tablet PO ×2 (08:08→17:17)
[2020-11-28] MEDS: magnesium sulfate premix 2 GM/50 ML PIGGYBACK IV (08:08)
[2020-11-28] MEDS: sodium bicarbonate 650 mg Tablet PO (08:08)
--- NOTE | 2020-11-28 09:10 | PC.CHAP ---
Pastoral Care Encounter/Spiritual Assessment Type of Contact [] Declined straw hat brim cutter operator visit [] Patient/Family/Request visit [] Outpatient visit [] Follow-up visit [] Physician referral [] Code/Alert [x] Routine visit [] Staff referral [] Actively dying [x] Patient sleeping [] Family support [] [] Out of room [] Palliative care [] [] Receiving care in room [] Pre-surgical visit [] Trauma [] Long length of stay [x] ICU visit [] Other: Relational/Emotional Strength [] Patient feels connected with others/family/visitors/staff [] Distress [] Loneliness/isolation [] Abandonment Spirituality of Patient [] Person of Bhavana [] Attends Episcopal of their Bhavana [] Believes in Prayer [] Reads Bible or Sikh materials [] There are Spiritual issues to be addressed Surgical Product Sales Consultant Interventions [x] Prayer [] Active listening [] Non-anxious presence [] Spiritual/emotional support [] Crisis/trauma care [] Spiritual counseling [] Bereavement support [] Provided bereavement packet [] Provided Bible/devotional materials [] Provided toy/stuffed animal, coloring book to patient or family member [] Provided Communion [] Anointing/[place] [] Salvation [x] Completed spiritual assessment [] Other: Impact on Illness or Injury [] Angry [] Fearful [] Anxious [] Often cries [] Exhaustion [] Unable to work [] Unable to attend restoration [] Unable to walk/stand [] Unable to read [] Unable to drive [] Unable to eat/drink [] Unable to sleep [] Unable to be with family [] Patient intubated [] Other: Summary Time spent with patient
--- NOTE | 2020-11-28 09:23 | P.PN_ITS ---
Subjective Subjective: Interval history: denies complaints. No abdominal pain Medications: Reviewed: Yes Vitals/I&O/Wt Last Vital Signs Temp 97.3 F L 11/28/20 07:55 Pulse 82 11/28/20 07:55 Resp 19 H 11/28/20 07:55 BP 99/57 11/28/20 07:55 Pulse Ox 100 11/28/20 07:55 11/27/20 11/28/20 11/28/20 22:59 06:59 14:59 Intake Total 625 / 675 300 / 975 50 / 50 Output Total 1000 / 1000 100 / 1100 0 / 0 Balance -375 / -325 200 / -125 50 / 50 Weight last 48 hrs Weight 69.4 kg Physical Exam Const: COMMON NORMALS: no acute distress GENERAL APPEARANCE: cooperative ORIENTATION/CONSCIOUSNESS: Yes awake Extremity: GENERAL: Yes edema Data : 11/28/20 04:55 11/28/20 04:55 Other Labs: PD fluid > 1000 WBC, mainly PMN wound culture GNR Micro: Microbiology 11/27/20 14:45 Gram Stain - Final Other Source Wound Culture - Preliminary Gram Negative Rods 11/27/20 21:54 Gram Stain - Final Peritoneal Fluid 11/27/20 11:38 Blood Culture - Preliminary Blood SPECIMEN COLLECTED 11/27/20 10:38 Blood Culture - Preliminary Blood SPECIMEN COLLECTED A&P Additional A&P Information Impression: 1. ESRD, on peritoneal dialysis, peritonitis, possible PD catheter malfunction 2. Sepsis, open wound left foot, culture growing GNR 3. Anemia Recommend: He received IV vanco yesterday and is currently on linezolid and pip/tazo. Going to OR for foot debridement. Will dose IP vanco and gent x 1 today while awaiting PD culture result. 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
[2020-11-28 10:19] LABS: Add Urine Microscopic? NO; Charge for UA Resulting for Rev
--- NOTE | 2020-11-28 10:36 | P.PN_ITS ---
Subjective Subjective: Interval history: patient was intermittently on levophed , no other issues , peritoneal fluid cultures pending Vitals/I&O/Wt Last Vital Signs Temp 97.3 F L 11/28/20 07:55 Pulse 82 11/28/20 07:55 Resp 19 H 11/28/20 07:55 BP 99/57 11/28/20 07:55 Pulse Ox 100 11/28/20 07:55 11/27/20 11/28/20 11/28/20 22:59 06:59 14:59 Intake Total 625 / 975 300 / 975 50 / 50 Output Total 1000 / 1100 100 / 1100 0 / 0 Balance -375 / -125 200 / -125 50 / 50 Weight last 48 hrs Weight 153 lb Physical Exam Narrative: EXAM NARRATIVE: Left foot : wrapped, chronic lymphedema Abdomen: soft, NT Data : 11/28/20 04:55 11/28/20 04:55 Micro: Microbiology 11/27/20 14:45 Gram Stain - Final Other Source Wound Culture - Preliminary Gram Negative Rods 11/27/20 21:54 Gram Stain - Final Peritoneal Fluid 11/27/20 11:38 Blood Culture - Preliminary Blood SPECIMEN COLLECTED 11/27/20 10:38 Blood Culture - Preliminary Blood SPECIMEN COLLECTED A&P Assessment and plan (1) Sepsis: Patient has a necrotic wound,. Patient could have peritonitis from his PD catheter.his abdominal exam was completely benign. WBC 37.7 CTA abdomen pelvis did not show significant changes from prior CT scan Continue IV antibiotics and fluid resuscitation as per hospitalist service Status: Acute (2) Wound of foot: Patient is a chronic left foot wound with necrotic tissue. Discussed with the patient the possibility of sepsis secondary to necrotic wound/cellulitis. Patient does not want to undergo amputation. CT LLE: left foot abscess Plan for debridement with drainage of abscess left foot under MAC today Status: Acute Attestations Medical Necessity Statement*: left foot abscess Coding Level of Care Code Acute Optical Dispenser for [facility] Fwd Diagnoses Sepsis A41.9 Wound of foot S91.309A
--- NOTE | 2020-11-28 10:36 | P.ANESASSM_ITS ---
Pre-Anesthetic Assessment Pre-Anesthetic Assessment: Height/Weight: Height 1.73 m Weight 69.4 kg Temp Pulse Resp BP Pulse Ox 97.3 F L 82 19 H 99/57 100 11/28/20 07:55 11/28/20 07:55 11/28/20 07:55 11/28/20 07:55 11/28/20 07:55 Preop Diagnosis: Critical limb ischemia/ non healing wounds on left foot Proposed Procedure: Operation Date: 11/28/20 10:30 Proposed Procedures p Debridement left foot(Left) - Giovanni Steinberg MD Was Beta Veronica taken within 24 hours: Yes Was Clonidine taken within 24 hours: N/A Last intake: Intake Last Solid Date 11/27/20 Social: Social History: No alcohol (h/o smoking) and No tobacco Exam: Pre-Anes Outpt Exam: alert, oriented x 3, clear to auscultation bilaterally and regular rate & rhythm Airway: Submandibular: WNL Cervical ROM: WNL MP: 2 Dentition: Chipped Additional comments: Very poor dentition, missing most Pulmonary: Pulmonary: COPD CV/HEM: CV/HEM: Anemia, CAD, CHF, HTN, CT and PVD Comments: Sepsis : : Chronic renal failure (Peritoneal dialysis) GI: GI: GERD Metabolic: Metabolic: DM (Poorly controlled), Hyperlipidemia and Thyroid Musc/skel: Musc/skel: Weakness Anesthetic Plan: ASA status: 4 Anesthesia: MAC Risk of > 500 ml blood loss (7ml/kg in children): No Meds/Allergies Current Medications: Current Medications Generic Name Dose Route Start Last Admin Trade Name Freq PRN Reason Stop Dose Admin Aspirin 81 mg 11/28/20 06:00 11/28/20 05:13 Aspirin 81 Mg Ec Tablet PO 81 mg QAM LENNIE Administration Atorvastatin Calci um 40 mg 11/27/20 18:00 11/27/20 18:22 Atorvastatin 40 Mg Tablet PO 40 mg QPM LENNIE Administration Linezolid 600 mg in 300 mls @ 300 mls/hr 11/27/20 15:00 11/28/20 03:32 Zyvox Premix IV Infused Q12H LENNIE Infusion Protocol Piperacillin Sod/T azobactam 50 mls @ 12.5 mls /hr 11/28/20 02:00 11/28/20 02:24 Sod 3.375 gm/ So dium Chloride IV 12.5 mls/hr Q12H LENNIE Administration Protocol Insulin Aspart 0 unit 11/27/20 18:00 11/28/20 08:05 Insulin Aspart 1 00 Unit/1 Ml SUBCUT Not Given TIDWM [facility] Protocol Levothyroxine Sodi um 88 mcg 11/28/20 06:00 11/28/20 05:13 Levothyroxine 88 Mcg Tablet PO 88 mcg QAM LENNIE Administration Magnesium Oxide 400 mg 11/28/20 06:00 11/28/20 05:13 Magnesium Oxide 400 Mg Tablet PO 400 mg QAM LENNIE Administration Non-Formulary Medi cation 1 tab 11/27/20 18:00 11/27/20 18:23 Vit B,C-Fa-Zinc- Selen-Vit D3-E [Re naplex-D] PO Not Given QPM LENNIE Pantoprazole Sodiu m 40 mg 11/27/20 18:00 11/28/20 08:[address] 40 Mg Tablet PO 40 mg BID LENNIE Administration Fluticasone/Salmet gwendolyn 1 puff 11/27/20 20:00 11/28/20 05:17 Fluticasone-Salm eterol 250-50 Disk us INHALATION Not Given BID.RESPIRATORY S CH Sodium Bicarbonate 650 mg 11/27/20 18:00 11/28/20 08:08 Sodium Bicarbona te 650 Mg Tablet PO 650 mg BID LENNIE Administration PFSH Anesthesia PFSH: Medical History Altered mental status Blood transfusion abn reaction or complication, no procedure mishap Cataract disorder type 14 COPD (chronic obstructive pulmonary disease) Diastolic congestive heart failure ESRD (end stage renal disease) Hypertension Hypothyroidism Insulin dependent type 2 diabetes mellitus Iron deficiency anemia Nonalcoholic liver disease, chronic Secondary hyperparathyroidism Surgical History H/O esophagogastroduodenoscopy 2020 History of open reduction and internal fixation (ORIF) procedure Peripheral arterial disease with history of revascularization Peritoneal dialysis catheter in place (03/14/20) S/P dialysis catheter insertion (08/30/19) Status post creation of arteriovenous fistula Family History Other CAD (coronary artery disease) Hyperlipidemia Hypertension Denies family history of Anesthesia complication Bleeding disorder Cancer Social History Alcohol intake: never Household members: family and other Details: Lives with his mother Current occupational status: disabled History of recent travel: No Data Anesthesia CBC & Chem 7: 11/28/20 04:55 11/28/20 04:55 Other Labs: Laboratory Results - last 48 hr 11/27/20 11/27/20 11/27/20 10:38 10:38 10:38 WBC 34.8 H* RBC 3.66 L Hgb 9.6 L Hct 33.7 L MCV 92.1 MCH 26.2 L MCHC 28.5 L RDW 19.7 H Plt Count 449 H MPV 8.9 Neut % (Auto) 93.7 Lymph % (Auto) 2.1 [place] % (Auto) 3.3 Eos % (Auto) 0.0 Baso % (Auto) 0.2 Neut # (Auto) 32.56 H Lymph # (Auto) 0.7 L [place] # (Auto) 1.2 H Eos # (Auto) 0.0 Baso # (Auto) 0.1 Nucleated RBC % (auto) 0.2 Total Counted Atypical Lymphs % Absolute Neutrophils Segmented Neutrophils Abs Segm Neuts (Man) Band Neutrophils Abs Band Neuts (Man) Absolute Lymphocytes Lymphocytes (Manual) Monocytes (Manual) Absolute Monocytes Eosinophils (Manual) Absolute Eosinophils Basophils (Manual) Absolute Basophils Nucleated RBCs # 0.1 Platelet Estimate Hypochromasia Poikilocytosis Basophilic Stippling Anisocytosis Stomatocytes PT 15.00 H INR 1.15 APTT 47.5 H Sodium 136 Potassium 4.0 Chloride 99 Carbon Dioxide 24 Anion Gap 17.0 BUN 56 H Creatinine 3.8 H GFR Calculation 16.1 L Glucose 189 H POC Glucose Estimat Average Glucose Hemoglobin A1c Calculated Osmolality 303 H Lactic Acid Lactate Calcium 7.2 L Phosphorus Magnesium Ferritin Total Bilirubin 0.2 AST 12 ALT 16 Alkaline Phosphatase 161 H Creatine Kinase Troponin T Gen 5 ng/L Troponin T 120 Minute Delta Troponin T Troponin T Hi Sens 6Hr Troponin T Hi Sens 6Hr Delta C-Reactive Protein NT-Pro-B Natriuret Pep 31956 H Total Protein 5.2 L Albumin 1.5 L Globulin 3.7 Procalcitonin TSH Peritoneal Color Peritoneal Appearance Peritoneal WBC Peritoneal RBC Periton Mononu # Auto Mononuclear WBCs % Polynuclear WBCs % Perit Polynuc WBCs # Peritoneal Diff Commnt SARS-CoV-2 Ag (Rapid) 11/27/20 11/27/20 11/27/20 10:38 10:38 10:38 WBC RBC Hgb Hct MCV MCH MCHC RDW Plt Count MPV Neut % (Auto) Lymph % (Auto) [place] % (Auto) Eos % (Auto) Baso % (Auto) Neut # (Auto) Lymph # (Auto) [place] # (Auto) Eos # (Auto) Baso # (Auto) Nucleated RBC % (auto) Total Counted Atypical Lymphs % Absolute Neutrophils Segmented Neutrophils Abs Segm Neuts (Man) Band Neutrophils Abs Band Neuts (Man) Absolute Lymphocytes Lymphocytes (Manual) Monocytes (Manual) Absolute Monocytes Eosinophils (Manual) Absolute Eosinophils Basophils (Manual) Absolute Basophils Nucleated RBCs # Platelet Estimate Hypochromasia Poikilocytosis Basophilic Stippling Anisocytosis Stomatocytes PT INR APTT Sodium Potassium Chloride Carbon Dioxide Anion Gap BUN Creatinine GFR Calculation Glucose POC Glucose Estimat Average Glucose Hemoglobin A1c Calculated Osmolality Lactic Acid 1.6 Lactate Calcium Phosphorus Magnesium Ferritin Total Bilirubin AST ALT Alkaline Phosphatase Creatine Kinase Troponin T Gen 5 ng/L 274 H* Troponin T 120 Minute Delta Troponin T Troponin T Hi Sens 6Hr Troponin T Hi Sens 6Hr Delta C-Reactive Protein 245.5 H NT-Pro-B Natriuret Pep 67964 H Total Protein Albumin Globulin Procalcitonin 1.38 H TSH Peritoneal Color Peritoneal Appearance Peritoneal WBC Peritoneal RBC Periton Mononu # Auto Mononuclear WBCs % Polynuclear WBCs % Perit Polynuc WBCs # Peritoneal Diff Commnt SARS-CoV-2 Ag (Rapid) 11/27/20 11/27/20 11/27/20 10:38 10:38 13:15 WBC RBC Hgb Hct MCV MCH MCHC RDW Plt Count MPV Neut % (Auto) Lymph % (Auto) [place] % (Auto) Eos % (Auto) Baso % (Auto) Neut # (Auto) Lymph # (Auto) [place] # (Auto) Eos # (Auto) Baso # (Auto) Nucleated RBC % (auto) Total Counted Atypical Lymphs % Absolute Neutrophils Segmented Neutrophils Abs Segm Neuts (Man) Band Neutrophils Abs Band Neuts (Man) Absolute Lymphocytes Lymphocytes (Manual) Monocytes (Manual) Absolute Monocytes Eosinophils (Manual) Absolute Eosinophils Basophils (Manual) Absolute Basophils Nucleated RBCs # Platelet Estimate Hypochromasia Poikilocytosis Basophilic Stippling Anisocytosis Stomatocytes PT INR APTT Sodium Potassium Chloride Carbon Dioxide Anion Gap BUN Creatinine GFR Calculation Glucose POC Glucose Estimat Average Glucose 137 Hemoglobin A1c 6.4 H Calculated Osmolality Lactic Acid Lactate Calcium Phosphorus Magnesium Ferritin Total Bilirubin AST ALT Alkaline Phosphatase Creatine Kinase Troponin T Gen 5 ng/L Troponin T 120 Minute 273.4 H Delta Troponin T -1.4 L Troponin T Hi Sens 6Hr Troponin T Hi Sens 6Hr Delta C-Reactive Protein NT-Pro-B Natriuret Pep Total Protein Albumin Globulin Procalcitonin TSH 1.51 Peritoneal Color Peritoneal Appearance Peritoneal WBC Peritoneal RBC Periton Mononu # Auto Mononuclear WBCs % Polynuclear WBCs % Perit Polynuc WBCs # Peritoneal Diff Commnt SARS-CoV-2 Ag (Rapid) 11/27/20 11/27/20 11/27/20 13:40 16:22 18:17 WBC RBC Hgb Hct MCV MCH MCHC RDW Plt Count MPV Neut % (Auto) Lymph % (Auto) [place] % (Auto) Eos % (Auto) Baso % (Auto) Neut # (Auto) Lymph # (Auto) [place] # (Auto) Eos # (Auto) Baso # (Auto) Nucleated RBC % (auto) Total Counted Atypical Lymphs % Absolute Neutrophils Segmented Neutrophils Abs Segm Neuts (Man) Band Neutrophils Abs Band Neuts (Man) Absolute Lymphocytes Lymphocytes (Manual) Monocytes (Manual) Absolute Monocytes Eosinophils (Manual) Absolute Eosinophils Basophils (Manual) Absolute Basophils Nucleated RBCs # Platelet Estimate Hypochromasia Poikilocytosis Basophilic Stippling Anisocytosis Stomatocytes PT INR APTT Sodium Potassium Chloride Carbon Dioxide Anion Gap BUN Creatinine GFR Calculation Glucose POC Glucose 178 H Estimat Average Glucose Hemoglobin A1c Calculated Osmolality Lactic Acid Lactate Calcium Phosphorus Magnesium Ferritin Total Bilirubin AST ALT Alkaline Phosphatase Creatine Kinase Troponin T Gen 5 ng/L Troponin T 120 Minute Delta Troponin T Troponin T Hi Sens 6Hr 243.5 H Troponin T Hi Sens 6Hr Delta TNP C-Reactive Protein NT-Pro-B Natriuret Pep Total Protein Albumin Globulin Procalcitonin TSH Peritoneal Color Peritoneal Appearance Peritoneal WBC Peritoneal RBC Periton Mononu # Auto Mononuclear WBCs % Polynuclear WBCs % Perit Polynuc WBCs # Peritoneal Diff Commnt SARS-CoV-2 Ag (Rapid) Negative 11/27/20 11/27/20 11/28/20 20:45 21:54 04:55 WBC 37.7 H* RBC 2.97 L Hgb 7.8 L Hct 26.9 L MCV 90.6 MCH 26.3 L MCHC 29.0 L RDW 19.6 H Plt Count 427 H MPV 9.3 Neut % (Auto) Lymph % (Auto) Not Reportable [place] % (Auto) Not Reportable Eos % (Auto) Baso % (Auto) Neut # (Auto) Lymph # (Auto) Not Reportable [place] # (Auto) Not Reportable Eos # (Auto) Baso # (Auto) Nucleated RBC % (auto) Total Counted 100 Atypical Lymphs % 0.0 Absolute Neutrophils 35.1 H Segmented Neutrophils 64 Abs Segm Neuts (Man) 24.1 H Band Neutrophils 29.0 Abs Band Neuts (Man) 10.9 H Absolute Lymphocytes 1.9 Lymphocytes (Manual) 5 Monocytes (Manual) 2.0 Absolute Monocytes 0.8 H Eosinophils (Manual) 0 Absolute Eosinophils 0.0 Basophils (Manual) 0.0 Absolute Basophils 0.0 Nucleated RBCs # Platelet Estimate Normal Hypochromasia 1+ H Poikilocytosis Trace Basophilic Stippling 1+ H Anisocytosis 1+ H Stomatocytes Trace PT INR APTT Sodium Potassium Chloride Carbon Dioxide Anion Gap BUN Creatinine GFR Calculation Glucose POC Glucose 176 H Estimat Average Glucose Hemoglobin A1c Calculated Osmolality Lactic Acid Lactate Calcium Phosphorus Magnesium Ferritin Total Bilirubin AST ALT Alkaline Phosphatase Creatine Kinase Troponin T Gen 5 ng/L Troponin T 120 Minute Delta Troponin T Troponin T Hi Sens 6Hr Troponin T Hi Sens 6Hr Delta C-Reactive Protein NT-Pro-B Natriuret Pep Total Protein Albumin Globulin Procalcitonin TSH Peritoneal Color Slight pink Peritoneal Appearance Cloudy Peritoneal WBC 1313 Peritoneal RBC 6 Periton Mononu # Auto 0.048 Mononuclear WBCs % 3.600 Polynuclear WBCs % 96.400 Perit Polynuc WBCs # 1.265 Peritoneal Diff Commnt Yes SARS-CoV-2 Ag (Rapid) 11/28/20 11/28/20 11/28/20 04:55 04:55 04:55 WBC RBC Hgb Hct MCV MCH MCHC RDW Plt Count MPV Neut % (Auto) Lymph % (Auto) [place] % (Auto) Eos % (Auto) Baso % (Auto) Neut # (Auto) Lymph # (Auto) [place] # (Auto) Eos # (Auto) Baso # (Auto) Nucleated RBC % (auto) Total Counted Atypical Lymphs % Absolute Neutrophils Segmented Neutrophils Abs Segm Neuts (Man) Band Neutrophils Abs Band Neuts (Man) Absolute Lymphocytes Lymphocytes (Manual) Monocytes (Manual) Absolute Monocytes Eosinophils (Manual) Absolute Eosinophils Basophils (Manual) Absolute Basophils Nucleated RBCs # Platelet Estimate Hypochromasia Poikilocytosis Basophilic Stippling Anisocytosis Stomatocytes PT 17.60 H INR 1.41 H APTT Sodium 138 Potassium 3.8 Chloride 98 Carbon Dioxide 25 Anion Gap 18.8 BUN 59 H Creatinine 3.9 H GFR Calculation 15.6 L Glucose 128 H POC Glucose Estimat Average Glucose Hemoglobin A1c Calculated Osmolality 304 H Lactic Acid Lactate 1.0 Calcium 6.8 L Phosphorus 6.0 H Magnesium 1.5 L Ferritin 701 H Total Bilirubin 0.2 AST 9 ALT 12 Alkaline Phosphatase 142 H Creatine Kinase 36 L Troponin T Gen 5 ng/L Troponin T 120 Minute Delta Troponin T Troponin T Hi Sens 6Hr Troponin T Hi Sens 6Hr Delta C-Reactive Protein 283.5 H NT-Pro-B Natriuret Pep 79601 H Total Protein 4.5 L Albumin 1.3 L Globulin 3.2 Procalcitonin 1.48 H TSH Peritoneal Color Peritoneal Appearance Peritoneal WBC Peritoneal RBC Periton Mononu # Auto Mononuclear WBCs % Polynuclear WBCs % Perit Polynuc WBCs # Peritoneal Diff Commnt SARS-CoV-2 Ag (Rapid) Micro: Microbiology 11/27/20 14:45 Gram Stain - Final Other Source Wound Culture - Preliminary Gram Negative Rods 11/27/20 21:54 Gram Stain - Final Peritoneal Fluid 11/27/20 11:38 Blood Culture - Preliminary Blood SPECIMEN COLLECTED 11/27/20 10:38 Blood Culture - Preliminary Blood SPECIMEN COLLECTED Cardiac Studies: No Data to Display
[2020-11-28 10:52] LABS: Bilirubin Urine 1+ (Negative); Blood Urine Neg (Negative); Glucose Urine UA Norm (Normal); Ketones Urine Negative (Negative); Leukocyte Esterase Urine Negative (Negative); Nitrate Urine Negative (Negative); Protein Urine Trace (Negative); Urine Appearance Clear (CLEAR); Urine Color Dark Yellow (Yellow); Urobilinogen Urine Norm (Negative); pH Urine 5 (5-7)
--- NOTE | 2020-11-28 11:25 | PC.NURSE ---
To OR Pt taken to OR Via bed by OR staff. Pt was in good condition when leaving the floor.
[2020-11-28 12:23] LABS: Glucose Point of Care 111 mg/dL (70-110)
[2020-11-28 12:23] LABS: Erythrocyte Sedimentation Rate 129 mm/hr (0-10)
--- NOTE | 2020-11-28 12:27 | PC.NURSE ---
Pt to Room Pt brought to room via bed by OR staff. Pt is stable and alert.
--- NOTE | 2020-11-28 13:20 | ANE.PACU2 ---
Inpatient post-anesthesia follow up: Airway intact: Yes Vital signs: Temperature 97.3 F Pulse Rate [Right Brachial] 100 Pulse Rate 92 Respiratory Rate 20 Blood Pressure [Le ft Arm] 103/73 Blood Pressure 99/57 Pulse Oximetry 100 Oxygen Delivery Me thod Nasal Cannula Oxygen Flow Rate 6 Fraction of Inspir ed Oxygen Hydration adequate: Yes Nausea and vomiting: No Pain level: 1 Mental status: Baseline
--- NOTE | 2020-11-28 13:29 | P.PN_ITS ---
Subjective Subjective: Interval history: Patient was seen this morning, his blood pressures are soft, but MAP greater than 65, remains on 6 L, denies any fevers, no nausea, vomiting, he tells me that he is cold, denies any abdominal complaints, no nausea, no vomiting, no diarrhea, no shortness of breath Medications: Reviewed: Yes Vitals/I&O/Wt Last Vital Signs Temp 97.3 F L 11/28/20 12:00 Pulse 92 11/28/20 12:00 Resp 20 H 11/28/20 12:00 BP 99/57 11/28/20 12:00 Pulse Ox 100 11/28/20 12:00 11/27/20 11/28/20 11/28/20 22:59 06:59 14:59 Intake Total 625 / 675 300 / 975 100 / 100 Output Total 1000 / 1000 100 / 1100 1000 / 1000 Balance -375 / -325 200 / -125 -900 / -900 Weight last 48 hrs Weight 69.4 kg Physical Exam Const: COMMON NORMALS: no acute distress ORIENTATION/CONSCIOUSNESS: Yes awake, Yes oriented to person, Yes oriented to place and Yes oriented to time Resp: COMMON NORMALS: normal respiratory effort, No retractions, No use of accessory muscles and clear to auscultation bilaterally AUSCULTATION: clear to auscultation bilaterally Cardio: COMMON NORMALS: regular rate, regular rhythm, S1 normal heart sound present and S2 normal heart sound present RATE: regular rate RHYTHM: regul ar rhythm HEART SOUNDS: S1 normal heart sound present and S2 normal heart sound present GI: COMMON NORMALS: Normal to inspection, nondistended, normoactive bowel sounds present, Soft to palpation, non-tender and No hepatosplenomegaly present PALPATION: Yes Soft to palpation, No Tenderness to palpation present (GI), No Guarding due to palpation present (GI), No Rigid due to palpation and Yes No hepatosplenomegaly present OTHER: Peritoneal dialysis catheter in place, : COMMON NORMALS: Yes no CVA tenderness BLADDER/KIDNEY EXAM: Yes no CVA tenderness Back/Pelvis: COMMON NORMALS: no CVA tenderness Extremity: COMMON NORMALS: no pedal edema OTHER: Right lower extremity, right eduardo, superficial diabetic ulcer measuring 1 cm long, half centimeter in width, with surrounding erythema, has erythema of right eduardo extending down to right ankle Left lower extremity, erythema of left eduardo Left lower extremity, first digit amputation Left lower extremity, plantar aspect, open diabetic ulcer, right under under remaining four digits, round, measuring 2 x 3 cm, and 2 cm deep, tunneling down to bone, exposed bone, foul odor, serosanguineous discharge, yellow-green Also left lower extremity, multiple superficial ulcers between second and third digit, third and fourth digit, lateral aspect of fifth digit Neuro: SENSORIUM/ORIENTATION: Yes oriented to person, Yes oriented to place and Yes oriented to time Data : 11/28/20 04:55 11/28/20 04:55 Micro: Microbiology 11/27/20 11:38 Blood Culture - Preliminary Blood NEGATIVE TO DATE 11/27/20 10:38 Blood Culture - Preliminary Blood NEGATIVE TO DATE 11/27/20 14:45 Gram Stain - Final Other Source Wound Culture - Preliminary Gram Negative Rods 11/27/20 21:54 Gram Stain - Final Peritoneal Fluid A&P Assessment and plan (1) Sepsis: -Sepsis -Multifactorial from peritonitis with peritoneal dialysis catheter and left lower extremity diabetic ulcer with tunneling to bone, with necrosis, osteomyelitis -Has completed 6 weeks of IV antibiotics, repeat debridement, discussions in the past about amputation due to nonhealing ulcer is infection, cultures in the past growing VRE Pseudomonas, -Also has cellulitis of right eduardo, left eduardo, multiple small open sores -left foot ct showed 1. There is a fluid collection in the superficial plantar soft tissues, measuring 2.2 cm transverse by 1.2 cm AP x 6.0 cm longitudinal, consistent with an abscess. 2. Additional fluid collection seen in the deep soft tissues adjacent to the proximal metatarsals. This collection measures 1.1 cm transverse x 0.8 cm AP x 1.0 cm craniocaudal, also consistent with abscess. 3. Destructive changes of the distal metatarsals and phalanges, which may be related to prior surgery. -No abdominal pain complaints, catheter was not flushing at home, according to patient he had a pinkish tinge dialysate has not been removed in over 12 hours, here initial dialysate a liter was removed, initial dialysate was white and creamy according to nursing staff, peritoneal dialysis analysis showed cloudy, over 1300 white blood cells, 96.4% WBCs, Gram stain no organisms, WBC seen -CT abdomen pelvis showed 1. There is pneumoperitoneum noted. A large amount of intraperitoneal fluid is noted. This is unchanged from the previous study of 11/27/2020 at 3:12 p.m. 2. Peritoneal dialysis catheter noted with distal portion in the midline of the pelvis, unchanged. 3. There is a right lateral/right flank hernia. A portion of the ascending colon is located within the hernia. This portion of the colon and demonstrates mild mural thickening, unchanged. There is also ascites and minimal free air within the hernia, similar to the remainder of the peritoneal space. No findings of bowel obstruction are noted. No definite bowel perforation appreciated. Consider repeat CT imaging with water-soluble enteric contrast to further assess the bowel integrity. 4. Mild diffuse mural thickening of the small bowel, which may be related to adjacent peritoneal process. No small bowel obstruction. 5. Calcified gallstones in the gallbladder. There are no secondary signs of cholecystitis. 6. Nonspecific focal infiltrates at the lung bases. This is unchanged. 7. No new abnormality demonstrated, when compared to the prior study. -Chest x-ray shows pneumonitis, concerns for possible Covid pneumonitis, rapid Covid negative, has no respiratory complaints, is on 6 L, clinically I feel that this is likely fluid overload -Met sepsis criteria on admission with elevated leukocytosis, source of infection, hypotension, tachycardia -Currently in sepsis, with soft blood pressures, white blood cell count 37.7, ESR 129, CRP 283, pro-Dennis 1.48, multiple sources of infection Plan: -Admit to ICU -Maintain MAP ~65, Levophed as needed -Continue Zyvox, Zosyn -Peritoneal vancomycin, gentamicin -Consulted general surgery for debridement of left lower extremity, possible discussion of amputation -Possibly might require PD catheter removal -Follow blood cultures, surgical cultures, peritoneal cultures -Consulted nephrology service -Heparin for DVT prophylaxis -Patient DNR/DNI NSTEMI: -Baseline troponin II 74, no acute ST-T wave changes, no chest pain complaints -Likely type II NSTEMI, from sepsis as above, however cannot rule out underlying cardiac etiology -Continue aspirin, statin, serial troponins, serial EKGs, monitor for chest pain, End-stage renal disease on peritoneal dialysis, as above Generalized weakness secondary to sepsis, as above Diastolic CHF avoid fluid overload Insulin-dependent type 2 diabetes mellitus, will get an A1c, low-dose sliding scale COPD currently not in exacerbation Pneumonitis, concerns for Covid on chest x-ray, currently on 6 L, no respiratory complaints, rapid Covid negative, likely fluid overload Acute on chronic anemia, second stage renal disease, bone marrow suppression for sepsis, hemoglobin 7.8, transfuse 1 unit PRBC Peripheral arterial disease -underwent peripheral angiogram with orbital atherectomy and balloon angioplasty of the left superficial femoral. -Right severe SFA stenosis Status: Acute (2) NSTEMI (non-ST elevated myocardial infarction): Status: Acute (3) End stage renal disease: Status: Acute (4) Insulin dependent type 2 diabetes mellitus: Status: Acute (5) Peritoneal dialysis catheter in place: Status: Acute (6) Generalized weakness: Status: Acute (7) Secondary hyperparathyroidism: Status: Acute (8) Anemia: Status: Acute Qualifiers: Anemia type: due to chronic kidney disease Chronic kidney disease stage: on chronic dialysis Qualified Code(s): N18.6 - End stage renal disease; D63.1 - Anemia in chronic kidney disease; Z99.2 - Dependence on renal dialysis (9) Hypothyroidism: Status: Acute (10) Diastolic congestive heart failure: Status: Acute (11) COPD (chronic obstructive pulmonary disease): Status: Acute (12) Peritonitis due to infected peritoneal dialysis catheter: Status: Acute Attestations Medical Necessity Statement*: Patient requires hospitalization, ICU, sepsis secondary to peritonitis, left lower extremity diabetic ulcer with osteomyelitis, anemia Coding Level of Care Code Acute Claims Adjuster Crop for [facility] Fwd Diagnoses Sepsis A41.9 NSTEMI (non-ST elevated myocardial infarction) I21.4 End stage renal disease N18.6 Insulin dependent type 2 diabetes mellitus E11.9; Z79.4 Peritoneal dialysis catheter in place Z99.2 Generalized weakness R53.1 Secondary hyperparathyroidism N25.81 Anemia N18.6; D63.1; Z99.2 Anemia type: due to chronic kidney disease Chronic kidney disease stage: on chronic dialysis Hypothyroidism E03.9 Diastolic congestive heart failure I50.30 COPD (chronic obstructive pulmonary disease) J44.9 Peritonitis due to infected peritoneal dialysis catheter T85.71XA; K65.9
--- NOTE | 2020-11-28 13:47 | P.OP_ITS ---
Operative Report Date of procedure: November 28, 2020 Pre-op Diagnosis: 1. Necrotic wound left foot 2. Abscess left foot Post-op Diagnosis: 1. 5 x 4 cm wound with necrotic subcutaneous tissue, tendon and muscle 2. Left fourth toe phalanx without any significant soft tissue coverage 3. Abscess plantar aspect of left foot Procedure Done: 1. Excisional debridement of necrotic subcutaneous tissue, tendon and muscle on plantar aspect of left foot 2. Amputation of left fourth toe 3. Incision and drainage of abscess on the plantar aspect of left foot Specimens removed/disposition: 1. Wound culture 2. left fourth toe Surgeon: Giovanni Steinberg Customs Patrol Officer: Giovanni Steinberg Condition: stable Disposition: PACU Procedure: The patient was taken to the operating room and placed under MAC. Using 15 blade excisional debridement of necrotic subcutaneous tissue, tendon and muscle on the lateral plantar aspect of the left foot was performed until there was punctate bleeding noted. The fourth and fifth metatarsal head could be seen at the base of the wound. Using 15 blade 5 cm longitudinal incision was made over the third metatarsal where there was drainage of pus noted. The subcu tissue was divided and loculations were taken down bluntly. Small amount of necrotic tissue was excised. Tissue was sent for microbiology. After debridement had been performed it was noted that there was no significant soft tissue coverage over the fourth toe and therefore amputation of the left fourth toe was performed using a 15 blade. There is small amount of punctate bleeding noted. The wound was irrigated with saline, hemostasis ensured and was packed with ribbon gauze, covered with ABDs. The patient was transferred to recovery room in stable condition.
[2020-11-28] MEDS: sucralfate 1 gm/10 mL Oral Liq UDC PO (17:17)
[2020-11-28] MEDS: atorvastatin 40 mg Tablet PO (17:17)
[2020-11-28] MEDS: Dianeal low Ca w/2.5% dex 2,000 mL Bag 2000 ML INTRAPERIT (17:18)
[2020-11-28 17:29] LABS: Glucose Point of Care 188 mg/dL (70-110)
[2020-11-28] MEDS: insulin lispro 100 unit/1 mL SUBCUT (17:29)
--- NOTE | 2020-11-28 18:00 | PC.NURSE ---
Shift Note Frequent safety and comfort rounds continue. Orders and/or nursing care completed as indicated. Patient monitored for response to intervention and treatment(s). Education provided includes incision and drainage. Patient and/or guest services representative verbalize understanding. Will continue to monitor. Peritoneal Dialysis initiated. 2,000 of the Vanc/Gent instilled. 500ml has drained and is still draining.
[2020-11-28] MEDS: heparin 5,000 unit/mL INJ 1 mL 5000 UNIT SUBCUT (20:28)
[2020-11-28 20:41] LABS: Glucose Point of Care 171 mg/dL (70-110)
[2020-11-29] VITALS (39 sets, daily range): BP systolic 77–127; BP diastolic 45–74; PULSE 53–90; RESP 14–24; TEMP 36.3–36.9; O2SAT 97–100
[2020-11-29] MEDS: Dianeal low Ca w/2.5% dex 2,000 mL Bag 2000 ML INTRAPERIT ×3 (00:08→12:16)
[2020-11-29] MEDS: piperacillin-tazobactam 3.375 GM in sodium chloride 0.9% (plus) 50 ML IV ×2 (02:33→14:57)
[2020-11-29] MEDS: linezolid premix 600 MG/300 ML PREMIX 300 MG IV ×2 (02:33→14:59)
[2020-11-29 05:15] LABS: Basophils # 0.1 10^3/uL (0.0-0.1); Basophils % 0.2 %; Eosinophils % 0.1 %; Hematocrit 24.7 % (42.0-52.0); Hemoglobin 7.1 g/dL (11.7-16.6); Lymphocytes # 0.9 10^3/uL (0.8-4.8); Lymphocytes % 2.6 %; Mean Corpuscular HGB Conc 28.7 g/dL (30.0-36.0); Mean Corpuscular Hemoglobin 26.4 pg (28.0-34.0); Mean Corpuscular Volume 91.8 fl (80-94); Mean Platelet Volume 8.9 fL (7.4-10.4); Monocytes # 1.1 10^3/uL (0.2-0.9); Neutrophils # 32.56 10^3/uL (1.8-7.7); Neutrophils % 92.2 %; Nucleated Red Blood Cells % 0.1 %; Platelet Count 375 10^3/cmm (130-400); Red Blood Count 2.69 10^6/uL (4.1-5.3); Red Cell Distribution Width 19.8 % (12.1-15.1)
[2020-11-29 05:21] LABS: White Blood Count 35.3 10^3/uL (4.0-10.0)
[2020-11-29 05:29] LABS: INR 1.41 (0.8-1.2)
[2020-11-29 05:35] LABS: Lactate (Lactic Acid level) 0.7 mmol/L (0.5-2.2)
[2020-11-29 05:40] LABS: Vancomycin Random 15.4 ug/mL (20.0-40.0)
[2020-11-29] MEDS: levothyroxine 88 mcg Tablet PO (05:48)
[2020-11-29] MEDS: aspirin 81 mg EC Tablet PO (05:48)
[2020-11-29 05:57] LABS: NT Pro B Type Natriuretic Pept 9482 pg/mL (0-125); Procalcitonin 1.73 ng/mL (0-0.5)
[2020-11-29 06:11] LABS: Alanine Aminotransferase 11 U/L (0-41); Albumin Level 1.4 g/dL (3.5-5.2); Alkaline Phosphatase 154 IU/L (40-130); Anion Gap 16.8 (5-19); Aspartate Amino Transferase 11 U/L (0-40); Blood Urea Nitrogen 58 mg/dL (8-23); C Reactive Protein 297.7 mg/L (0.0-4.9); Carbon Dioxide 27 mmol/L (22-29); Chloride 99 mmol/L (98-107); Creatine Phosphokinase 38 U/L (39-308); Ferritin 908 ng/mL (30-400); Globulin 2.9 g/dL (1.3-4.6); Glomerular Filtration Rate 15.6 mL/min (90-130); Glucose 155 mg/dL (65-115); Osmolality Calculated 307 mOsm/kg (285-295); Potassium 3.8 mmol/L (3.5-5.1); Sodium 139 mmol/L (136-145); Total Bilirubin 0.2 mg/dL (0.15-1.2); Total Protein 4.3 g/dL (6.6-8.7)
[2020-11-29] MEDS: oxyCODONE-APAP 5-325 mg Tablet 1 TAB PO (06:12)
[2020-11-29] MEDS: pantoprazole DR 40 mg Tablet PO ×2 (08:28→17:59)
[2020-11-29] MEDS: heparin 5,000 unit/mL INJ 1 mL 5000 UNIT SUBCUT ×2 (08:28→22:56)
[2020-11-29 08:44] LABS: Mononuclear #, Pertinoneal Fl 0.087 10^3/uL; Polynuclear # Cells, Perit 0.382 10^3/uL
--- NOTE | 2020-11-29 09:25 | P.PN_ITS ---
Subjective Subjective: Interval history: no complaints Medications: Reviewed: Yes Vitals/I&O/Wt Last Vital Signs Temp 98 F 11/29/20 00:00 Pulse 75 11/29/20 07:17 Resp 22 H 11/29/20 07:17 BP 101/51 11/29/20 07:17 Pulse Ox 100 11/29/20 07:17 11/28/20 11/29/20 11/29/20 22:59 06:59 14:59 Intake Total 700 / 800 350 / 1150 Output Total 2650 / 3650 2000 / 5650 0 / 0 Balance -1950 / -2850 -1650 / -4500 0 / 0 Is/Os not accurate - output reflects PD output; PD input not recorded Data : 11/29/20 04:59 11/29/20 04:59 Other Labs: PD WBC 497 (decreased from 1300) Micro: Microbiology 11/28/20 12:06 Gram Stain - Final Foot - Left 11/27/20 14:45 Anaerobic Culture - Preliminary Foot - #1 11/27/20 11:38 Blood Culture - Preliminary Blood NEGATIVE TO DATE 11/27/20 10:38 Blood Culture - Preliminary Blood NEGATIVE TO DATE 11/27/20 14:45 Gram Stain - Final Other Source Wound Culture - Preliminary Gram Negative Rods 11/27/20 21:54 Gram Stain - Final Peritoneal Fluid A&P Additional A&P Information Impression: 1. ESRD, on peritoneal dialysis, peritonitis, culture so far no growth. Catheter working well 2. Sepsis, open wound left foot, culture growing GNR, s/p debridement 3. Anemia Recommend: Continue PD 2.5% 2L QID. No need for further IP antibiotics; continue IV antiotics which are providing gram pos and gram neg coverage. Will dose SC epogen Attestations Medical Necessity Statement*: see above Time Spent in Patient Care: 16 - 35 minutes Coding Level of Care Code Acute Network Admin for Brynn Castro
[2020-11-29] MEDS: sodium chloride 0.9% 250 ML 10 ML IV (09:47)
[2020-11-29 10:07] LABS: Appearance, Peritoneal Fluid Hazy (Clear); Color, Peritoneal Fluid Slight Pink (Pale Yellow)
[2020-11-29 10:08] LABS: RBC Pertioneal Fluid 5 10^3/uL; WBC Peritoneal Fluid 469 /uL
[2020-11-29 10:11] LABS: Pathology Referral Yes
--- NOTE | 2020-11-29 10:53 | PC.CHAP ---
Pastoral Care Encounter/Spiritual Assessment Type of Contact [] Declined continuous crusher operator visit [] Patient/Family/Request visit [] Outpatient visit [] Follow-up visit [] Physician referral [] Code/Alert [x] Routine visit [] Staff referral [] Actively dying [] Patient sleeping [] Family support [] [] Out of room [] Palliative care [] [] Receiving care in room [] Pre-surgical visit [] Trauma [] Long length of stay [x] ICU visit [] Other: Relational/Emotional Strength [] Patient feels connected with others/family/visitors/staff [] Distress [] Loneliness/isolation [] Abandonment Spirituality of Patient [] Person of Bhavana [] Attends Hindu of their Bhavana [] Believes in Prayer [] Reads Bible or Sabianist materials [] There are Spiritual issues to be addressed Tire Builder Heavy Service Interventions [x] Prayer [x] Active listening [x Non-anxious presence [x] Spiritual/emotional support [] Crisis/trauma care [] Spiritual counseling [] Bereavement support [] Provided bereavement packet [] Provided Bible/devotional materials [] Provided toy/stuffed animal, coloring book to patient or family member [] Provided Communion [] Anointing/Strunk [] Salvation [x] Completed spiritual assessment [] Other: Impact on Illness or Injury [] Angry [] Fearful [] Anxious [] Often cries [] Exhaustion [] Unable to work [] Unable to attend faith [] Unable to walk/stand [] Unable to read [] Unable to drive [] Unable to eat/drink [] Unable to sleep [] Unable to be with family [] Patient intubated [] Other: Summary patient seems confused.. not total responsive, but requested prayer Time spent with patient 5 min
[2020-11-29 11:17] LABS: Glucose Point of Care 186 mg/dL (70-110)
[2020-11-29] MEDS: insulin lispro 100 unit/1 mL SUBCUT (12:14)
--- NOTE | 2020-11-29 14:03 | PM.PN ---
Subjective Subjective: Interval history: This morning patient was seen, he complains of left foot pain, but no other complaints, no fevers, chills, nausea, vomiting, no chest pain, had soft blood pressures throughout the night, MAP greater than 65, no pressors required, Vitals/I&O/Wt Last Vital Signs Temp 98 F 11/29/20 00:00 Pulse 75 11/29/20 12:00 Resp 20 H 11/29/20 12:00 BP 103/53 11/29/20 12:00 Pulse Ox 99 11/29/20 12:00 11/28/20 11/29/20 11/29/20 22:59 06:59 14:59 Intake Total 700 / 800 350 / 1150 350 / 350 Output Total 2650 / 3650 2000 / 5650 0 / 0 Balance -1950 / -2850 -1650 / -4500 350 / 350 Physical Exam Const: COMMON NORMALS: no acute distress ORIENTATION/CONSCIOUSNESS: Yes awake, Yes oriented to person, Yes oriented to place and Yes oriented to time Resp: COMMON NORMALS: normal respiratory effort, No retractions, No use of accessory muscles and clear to auscultation bilaterally AUSCULTATION: clear to auscultation bilaterally Cardio: COMMON NORMALS: regular rate, regular rhythm, S1 normal heart sound present, S2 normal heart sound present and No murmurs present (Cardio) RATE: regular rate RHYTHM: regular rhythm HEART SOUNDS: S1 normal heart sound present and S2 normal heart sound present GI: COMMON NORMALS: Normal to inspection, nondistended, normoactive bowel sounds present, Soft to palpation and non-tender PALPATION: Yes Soft to palpation OTHER: PD catheter site looks clean and dry Neuro: SENSORIUM/ORIENTATION: Yes oriented to person, Yes oriented to place and Yes oriented to time Skin: NARRATIVE SKIN EXAM: Generalized anasarca, Right lower extremity, right eduardo, superficial diabetic ulcer looks clean and dry, with erythema, has erythema of right eduardo extending down to right ankle Left lower extremity, erythema of left eduardo Left lower extremity, first digit amputation Left lower extremity, wrapped and bandaged Data : 11/29/20 04:59 11/29/20 04:59 Micro: Microbiology 11/27/20 14:45 Anaerobic Culture - Preliminary Foot - #1 11/27/20 21:54 Gram Stain - Final Peritoneal Fluid Body Fluid Culture - Preliminary 11/27/20 09:56 Urine Culture - Preliminary Urine Catheterized 11/27/20 14:45 Gram Stain - Final Other Source Wound Culture - Preliminary Pseudomonas aeruginosa 11/28/20 12:06 Gram Stain - Final Foot - Left 11/27/20 11:38 Blood Culture - Preliminary Blood NEGATIVE TO DATE 11/27/20 10:38 Blood Culture - Preliminary Blood NEGATIVE TO DATE A&P Assessment and plan (1) Sepsis: -Sepsis -Multifactorial from peritonitis with peritoneal dialysis catheter and left lower extremity diabetic ulcer with tunneling to bone, with necrosis, osteomyelitis -Has completed 6 weeks of IV antibiotics, repeat debridement, discussions in the past about amputation due to nonhealing ulcer is infection, cultures in the past growing VRE Pseudomonas, -Also has cellulitis of right eduardo, left eduardo, multiple small open sores -left foot ct showed 1. There is a fluid collection in the superficial plantar soft tissues, measuring 2.2 cm transverse by 1.2 cm AP x 6.0 cm longitudinal, consistent with an abscess. 2. Additional fluid collection seen in the deep soft tissues adjacent to the proximal metatarsals. This collection measures 1.1 cm transverse x 0.8 cm AP x 1.0 cm craniocaudal, also consistent with abscess. 3. Destructive changes of the distal metatarsals and phalanges, which may be related to prior surgery. -No abdominal pain complaints, catheter was not flushing at home, according to patient he had a pinkish tinge dialysate has not been removed in over 12 hours, here initial dialysate a liter was removed, initial dialysate was white and creamy according to nursing staff, peritoneal dialysis analysis showed cloudy, over 1300 white blood cells, 96.4% WBCs, Gram stain no organisms, WBC seen -CT abdomen pelvis showed 1. There is pneumoperitoneum noted. A large amount of intraperitoneal fluid is noted. This is unchanged from the previous study of 11/27/2020 at 3:12 p.m. 2. Peritoneal dialysis catheter noted with distal portion in the midline of the pelvis, unchanged. 3. There is a right lateral/right flank hernia. A portion of the ascending colon is located within the hernia. This portion of the colon and demonstrates mild mural thickening, unchanged. There is also ascites and minimal free air within the hernia, similar to the remainder of the peritoneal space. No findings of bowel obstruction are noted. No definite bowel perforation appreciated. Consider repeat CT imaging with water-soluble enteric contrast to further assess the bowel integrity. 4. Mild diffuse mural thickening of the small bowel, which may be related to adjacent peritoneal process. No small bowel obstruction. 5. Calcified gallstones in the gallbladder. There are no secondary signs of cholecystitis. 6. Nonspecific focal infiltrates at the lung bases. This is unchanged. 7. No new abnormality demonstrated, when compared to the prior study. -Chest x-ray shows pneumonitis, concerns for possible Covid pneumonitis, rapid Covid negative, has no respiratory complaints, is on 6 L, clinically I feel that this is likely fluid overload -Met sepsis criteria on admission with elevated leukocytosis, source of infection, hypotension, tachycardia -Clinically improving, continues to have leukocytosis over 35,000, afebrile, normotensive Plan: -Moved to general medical floors -Continue midodrine -Continue Zyvox, Zosyn -Peritoneal vancomycin, gentamicin 1 dose -So far peritoneal cultures remain unremarkable -Status post debridement left lower extremity -PD catheter placed, continue to follow cultures -Follow blood cultures, surgical cultures, peritoneal cultures -Consulted nephrology service -Consulted general surgery service -Erwin catheter in place, -Right femoral line in place -Heparin for DVT prophylaxis -Patient DNR/DNI Acute on chronic hypoxia, uses 4 L at home, currently on 6 L, secondary to fluid overload, receiving peritoneal dialysis start home Lasix Acute on chronic anemia, from sepsis, bone marrow suppression, end-stage renal disease, cannot rule out slow GI bleed, continue Protonix, Carafate, 1 unit PRBC NSTEMI: -Baseline troponin II 74, no acute ST-T wave changes, no chest pain complaints -Likely type II NSTEMI, from sepsis as above, however cannot rule out underlying cardiac etiology -Continue aspirin, statin, monitor for chest pain, End-stage renal disease on peritoneal dialysis, as above Generalized weakness secondary to sepsis, as above Diastolic CHF avoid fluid overload, peritoneal dialysis Insulin-dependent type 2 diabetes mellitus, will get an A1c, low-dose sliding scale COPD currently not in exacerbation Pneumonitis, concerns for Covid on chest x-ray, currently on 6 L, no respiratory complaints, rapid Covid negative, likely fluid overload Peripheral arterial disease -underwent peripheral angiogram with orbital atherectomy and balloon angioplasty of the left superficial femoral. -Right severe SFA stenosis Status: Acute (2) NSTEMI (non-ST elevated myocardial infarction): Status: Acute (3) End stage renal disease: Status: Acute (4) Insulin dependent type 2 diabetes mellitus: Status: Acute (5) Peritoneal dialysis catheter in place: Status: Acute (6) Generalized weakness: Status: Acute (7) Secondary hyperparathyroidism: Status: Acute (8) Anemia: Status: Acute Qualifiers: Anemia type: due to chronic kidney disease Chronic kidney disease stage: on chronic dialysis Qualified Code(s): N18.6 - End stage renal disease; D63.1 - Anemia in chronic kidney disease; Z99.2 - Dependence on renal dialysis (9) Hypothyroidism: Status: Acute (10) Diastolic congestive heart failure: Status: Acute (11) COPD (chronic obstructive pulmonary disease): Status: Acute (12) Peritonitis due to infected peritoneal dialysis catheter: Status: Acute Attestations Medical Necessity Statement*: Patient requires hospitalization for peritonitis, left lower extremity diabetic ulcer with osteomyelitis with sepsis, on peritoneal dialysis, anemia Coding Level of Care Code Acute Radiator Tester for [facility] Fwd Diagnoses Sepsis A41.9 NSTEMI (non-ST elevated myocardial infarction) I21.4 End stage renal disease N18.6 Insulin dependent type 2 diabetes mellitus E11.9; Z79.4 Peritoneal dialysis catheter in place Z99.2 Generalized weakness R53.1 Secondary hyperparathyroidism N25.81 Anemia N18.6; D63.1; Z99.2 Anemia type: due to chronic kidney disease Chronic kidney disease stage: on chronic dialysis Hypothyroidism E03.9 Diastolic congestive heart failure I50.30 COPD (chronic obstructive pulmonary disease) J44.9 Peritonitis due to infected peritoneal dialysis catheter T85.71XA; K65.9
--- NOTE | 2020-11-29 14:54 | PC.RESP ---
PULMONARY REHAB INFORMATION SENT TO PATIENT.
[2020-11-29] MEDS: docusate sodium 100 mg Capsule PO ×2 (14:56→17:59)
[2020-11-29] MEDS: polyethylene glycol 3350 Pkt 17 gm PO (14:57)
[2020-11-29] MEDS: midodrine 5 mg TABLET 10 MG PO ×2 (14:57→22:56)
[2020-11-29] MEDS: epoetin alfa 1000 Unit/0.05 mL (non-esrd) 20000 UNIT SUBCUT (15:19)
[2020-11-29] MEDS: atorvastatin 40 mg Tablet PO (17:59)
[2020-11-29] MEDS: FUROsemide 40 mg Tablet PO (17:59)
--- NOTE | 2020-11-29 18:15 | PC.NURSE ---
Pt to floor Report was faxed and called to Sujata on second floor. Pt taken by bed to room 264, pt received by RECOVERY ASSISTANT's. Meds and dialysate given to nurses at nurses station.
--- NOTE | 2020-11-29 18:22 | PM.PN ---
Subjective Subjective: Interval history: Patient has remained stable, off pressors, denies any abdominal pain nausea or vomiting. His PD catheter is functioning well Vitals/I&O/Wt Last Vital Signs Temp 97.3 F L 11/29/20 12:52 Pulse 71 11/29/20 16:00 Resp 17 11/29/20 16:00 BP 109/61 11/29/20 16:00 Pulse Ox 100 11/29/20 16:00 11/29/20 11/29/20 11/29/20 06:59 14:59 22:59 Intake Total 350 / 1150 350 / 1100 750 / 1100 Output Total 2000 / 5650 0 / 75 75 / 75 Balance -1650 / -4500 350 / 1025 675 / 1025 Physical Exam Narrative: EXAM NARRATIVE: Abdomen: Soft, nontender, nondistended, PD catheter left upper quadrant Data : 11/29/20 04:59 11/29/20 04:59 Micro: Microbiology 11/27/20 14:45 Anaerobic Culture - Preliminary Foot - #1 11/27/20 21:54 Gram Stain - Final Peritoneal Fluid Body Fluid Culture - Preliminary 11/27/20 09:56 Urine Culture - Preliminary Urine Catheterized 11/27/20 14:45 Gram Stain - Final Other Source Wound Culture - Preliminary Pseudomonas aeruginosa 11/28/20 12:06 Gram Stain - Final Foot - Left A&P Assessment and plan (1) Peritonitis due to infected peritoneal dialysis catheter: PD catheter is functioning well, patient is hemodynamically stable without any evidence of peritonitis on physical exam Continue to use PD catheter IV antibiotics as per hospitalist service Status: Acute (2) Status post excisional debridement: Patient underwent excisional debridement of left foot and again discussed with the patient about possible amputation considering the extent of his wound. Continue with wet-to-dry dressing change once daily Status: Acute Attestations Medical Necessity Statement*: As per primary Coding Level of Care Code Acute Director Of Database Marketing for [facility] Matthew Diagnoses Peritonitis due to infected peritoneal dialysis catheter T85.71XA; K65.9 Status post excisional debridement Z98.890
--- NOTE | 2020-11-29 18:36 | PC.NURSE ---
Dressing change Dressing change to left foot. Red drainage noted on dressing. Packed with Kerlix, abd, kerlix. Pt tolerated well.
[2020-11-29] MEDS: sucralfate 1 gm/10 mL Oral Liq UDC PO (22:56)
[2020-11-30] VITALS (8 sets, daily range): BP systolic 96–108; BP diastolic 53–59; PULSE 56–86; RESP 17–20; TEMP 36.3–36.8; O2SAT 93–98
[2020-11-30] MEDS: piperacillin-tazobactam 3.375 GM in sodium chloride 0.9% (plus) 50 ML IV ×2 (01:00→16:01)
--- NOTE | 2020-11-30 01:35 | PC.NURSE ---
PATIENT REFUSED 0030 ROUND OF PARITONEAL DIALYSIS, STATING I HAVE HAD IT 3 TIMES ALREADY TODAY, THAT'S PLENTY. STAFF EDUCATED PATIENT ON IMPORTANCE OF ADHEARING TO DOCTORS ORDERS AND THE NEED TO DO DIALYSIS ROUTINELY. WILL CONTINUE TO MONITOR. HOSPITALIST NOTIFIED.
--- NOTE | 2020-11-30 01:55 | PC.NURSE ---
TOP ROLL OF KURLEX ON LEFT FOOT DRESSING WAS REPLACED DUE TO IT BEING SOILED WITH DRAINAGE THAT HAD SEEPED ONTO SHEET AND BLANKET. PATIENT TOLERATED WELL. WILL CONTINUE TO DO FREQUENT ROUNDING AND MONITOR.
[2020-11-30] MEDS: linezolid premix 600 MG/300 ML PREMIX 200 MG IV (03:49)
[2020-11-30 05:48] LABS: Basophils # 0.1 10^3/uL (0.0-0.1); Basophils % 0.2 %; Eosinophils # 0.1 10^3/uL (0.0-0.8); Eosinophils % 0.3 %; Hematocrit 27.2 % (42.0-52.0); Lymphocytes % 2.9 %; Mean Corpuscular HGB Conc 29.4 g/dL (30.0-36.0); Mean Corpuscular Hemoglobin 26.1 pg (28.0-34.0); Mean Corpuscular Volume 88.9 fl (80-94); Mean Platelet Volume 9.1 fL (7.4-10.4); Monocytes # 1.1 10^3/uL (0.2-0.9); Monocytes % 3.4 %; Neutrophils % 91.4 %; Nucleated Red Blood Cells # 0.1 /100WBC; Nucleated Red Blood Cells % 0.3 %; Platelet Count 342 10^3/cmm (130-400); Red Blood Count 3.06 10^6/uL (4.1-5.3); Red Cell Distribution Width 19.6 % (12.1-15.1)
[2020-11-30 05:57] LABS: White Blood Count 33.1 10^3/uL (4.0-10.0)
[2020-11-30 05:59] LABS: INR 1.42 (0.8-1.2)
[2020-11-30 06:05] LABS: Lactate (Lactic Acid level) 1.2 mmol/L (0.5-2.2)
[2020-11-30 06:28] LABS: NT Pro B Type Natriuretic Pept 11633 pg/mL (0-125); Procalcitonin 1.34 ng/mL (0-0.5)
[2020-11-30] MEDS: levothyroxine 88 mcg Tablet PO (06:28)
[2020-11-30] MEDS: aspirin 81 mg EC Tablet PO (06:28)
[2020-11-30 06:39] LABS: Alanine Aminotransferase 11 U/L (0-41); Albumin Level 1.3 g/dL (3.5-5.2); Alkaline Phosphatase 165 IU/L (40-130); Anion Gap 15.6 (5-19); Aspartate Amino Transferase 10 U/L (0-40); Blood Urea Nitrogen 57 mg/dL (8-23); C Reactive Protein 231.4 mg/L (0.0-4.9); Carbon Dioxide 25 mmol/L (22-29); Chloride 97 mmol/L (98-107); Creatine Phosphokinase 21 U/L (39-308); Ferritin 953 ng/mL (30-400); Globulin 2.8 g/dL (1.3-4.6); Glomerular Filtration Rate 15.6 mL/min (90-130); Glucose 111 mg/dL (65-115); Magnesium 1.9 mg/dL (1.7-2.3); Osmolality Calculated 295 mOsm/kg (285-295); Potassium 3.6 mmol/L (3.5-5.1); Sodium 134 mmol/L (136-145); Total Bilirubin 0.2 mg/dL (0.15-1.2); Total Protein 4.1 g/dL (6.6-8.7)
[2020-11-30 06:53] LABS: Glucose Point of Care 105 mg/dL (70-110)
--- NOTE | 2020-11-30 09:24 | PC.SOCIAL ---
IMM UPdated Page 2 of IMM updated and reviewed with patient. Initialed, timed and dated and copy left in pts chart.
[2020-11-30] MEDS: FUROsemide 40 mg Tablet PO (09:43)
[2020-11-30] MEDS: pantoprazole DR 40 mg Tablet PO (09:43)
[2020-11-30] MEDS: docusate sodium 100 mg Capsule PO (09:43)
[2020-11-30] MEDS: magnesium hydroxide 30 mL UDC PO (09:43)
[2020-11-30] MEDS: midodrine 5 mg TABLET 10 MG PO ×3 (09:43→21:16)
[2020-11-30] MEDS: heparin 5,000 unit/mL INJ 1 mL 5000 UNIT SUBCUT ×2 (09:47→21:16)
[2020-11-30 11:07] LABS: Glucose Point of Care 123 mg/dL (70-110)
[2020-11-30] MEDS: sucralfate 1 gm/10 mL Oral Liq UDC PO ×3 (11:22→21:16)
[2020-11-30] MEDS: oxyCODONE-APAP 5-325 mg Tablet 1 TAB PO (12:49)
[2020-11-30] MEDS: Dianeal low Ca w/2.5% dex 2,000 mL Bag 2000 ML INTRAPERIT (12:57)
--- NOTE | 2020-11-30 13:20 | P.PN_ITS ---
Vitals/I&O/Wt Last Vital Signs Temp 97.9 F 11/30/20 11:15 Pulse 56 L 11/30/20 11:15 Resp 17 11/30/20 12:49 BP 96/53 11/30/20 11:15 Pulse Ox 96 11/30/20 11:15 11/29/20 11/30/20 11/30/20 22:59 06:59 14:59 Intake Total 3864.167 / 4214.167 600 / 4814.167 Output Total 2074 / 2074 Balance 1789.167 / 2139.167 600 / 2739.167 Physical Exam Const: COMMON NORMALS: no acute distress, patient oriented x3 and alert GENERAL APPEARANCE: cooperative and comfortable ORIENTATION/CONSCIOUSNESS: Yes awake, Yes oriented to person, Yes oriented to place and Yes oriented to time Eye: COMMON NORMALS: Equal, round and reactive pupils present GENERAL EYE: appearance normal, both eyes and all related structures PUPIL: Yes Equal, round and reactive pupils present Neck/C-Spine: COMMON NORMALS: full ROM, no lymphadenopathy and Thyroid normal THYROID: Thyroid normal Resp: COMMON NORMALS: normal respiratory effort, No retractions, No use of accessory muscles and clear to auscultation bilaterally AUSCULTATION: clear to auscultation bilaterally Cardio: COMMON NORMALS: regular rate, regular rhythm, S1 normal heart sound present and S2 normal heart sound present RATE: regular rate RHYTHM: regular rhythm HEART SOUNDS: S1 normal heart sound present and S2 normal heart sound present GI: COMMON NORMALS: Normal to inspection, nondistended, normoactive bowel sounds present, Soft to palpation and non-tender PALPATION: Yes Soft to palpation OTHER: PD catheter site looks clean and dry : COMMON NORMALS: Yes no CVA tenderness BLADDER/KIDNEY EXAM: Yes no CVA tenderness Back/Pelvis: COMMON NORMALS: no CVA tenderness Extremity: COMMON NORMALS: no pedal edema Neuro: COMMON NORMALS: patient oriented x3, moves all extremities and no focal motor deficits SENSORIUM/ORIENTATION: Yes alert, Yes oriented to person, Yes oriented to place and Yes oriented to time Psych: COMMON NORMALS: mental status grossly normal, Normal thought process present and cooperative THOUGHT PROCESS: Normal thought process present Skin: NARRATIVE SKIN EXAM: Generalized anasarca, Right lower extremity, right eduardo, superficial diabetic ulcer looks clean and dry, with erythema, has erythema of right eduardo extending down to right ankle Left lower extremity, erythema of left eduardo Left lower extremity, first digit amputation Left lower extremity, wrapped and bandaged Data : 11/30/20 05:31 11/30/20 05:31 Micro: Microbiology 11/27/20 09:56 Urine Culture - Final Urine Catheterized 11/27/20 14:45 Anaerobic Culture - Preliminary Foot - #1 11/27/20 21:54 Gram Stain - Final Peritoneal Fluid Body Fluid Culture - Preliminary 11/27/20 14:45 Gram Stain - Final Other Source Wound Culture - Preliminary Pseudomonas aeruginosa 11/28/20 12:06 Gram Stain - Final Foot - Left A&P Assessment and plan (1) Sepsis: -Sepsis -Multifactorial from peritonitis with peritoneal dialysis catheter and left lower extremity diabetic ulcer with tunneling to bone, with necrosis, osteomyelitis -Has completed 6 weeks of IV antibiotics, repeat debridement, discussions in the past about amputation due to nonhealing ulcer is infection, cultures in the past growing VRE Pseudomonas, -Also has cellulitis of right eduardo, left eduardo, multiple small open sores -left foot ct showed 1. There is a fluid collection in the superficial plantar soft tissues, measuring 2.2 cm transverse by 1.2 cm AP x 6.0 cm longitudinal, consistent with an abscess. 2. Additional fluid collection seen in the deep soft tissues adjacent to the proximal metatarsals. This collection measures 1.1 cm transverse x 0.8 cm AP x 1.0 cm craniocaudal, also consistent with abscess. 3. Destructive changes of the distal metatarsals and phalanges, which may be related to prior surgery. -No abdominal pain complaints, catheter was not flushing at home, according to patient he had a pinkish tinge dialysate has not been removed in over 12 hours, here initial dialysate a liter was removed, initial dialysate was white and creamy according to nursing staff, peritoneal dialysis analysis showed cloudy, over 1300 white blood cells, 96.4% WBCs, Gram stain no organisms, WBC seen -CT abdomen pelvis showed 1. There is pneumoperitoneum noted. A large amount of intraperitoneal fluid is noted. This is unchanged from the previous study of 11/27/2020 at 3:12 p.m. 2. Peritoneal dialysis catheter noted with distal portion in the midline of the pelvis, unchanged. 3. There is a right lateral/right flank hernia. A portion of the ascending colon is located within the hernia. This portion of the colon and demonstrates mild mural thickening, unchanged. There is also ascites and minimal free air within the hernia, similar to the remainder of the peritoneal space. No findings of bowel obstruction are noted. No definite bowel perforation appreciated. Consider repeat CT imaging with water-soluble enteric contrast to further assess the bowel integrity. 4. Mild diffuse mural thickening of the small bowel, which may be related to adjacent peritoneal process. No small bowel obstruction. 5. Calcified gallstones in the gallbladder. There are no secondary signs of cholecystitis. 6. Nonspecific focal infiltrates at the lung bases. This is unchanged. 7. No new abnormality demonstrated, when compared to the prior study. -Chest x-ray shows pneumonitis, concerns for possible Covid pneumonitis, rapid Covid negative, has no respiratory complaints, is on 4 L, improved -Met sepsis criteria on admission with elevated leukocytosis, source of infection, hypotension, tachycardia -Clinically improving, continues to have leukocytosis over 33,000, crp 231.4, procal 1.34, afebrile, normotensive Plan: -Moved to general medical floors -Continue midodrine -Continue Zyvox, Zosyn -Peritoneal vancomycin, gentamicin received 1 dose -So far peritoneal cultures remain unremarkable -Status post debridement left lower extremity -PD catheter placed, continue to follow cultures -Follow blood cultures, surgical cultures pseudomonas aeurignosa, peritoneal cultures -Receiving PD data -Consulted nephrology service -Consulted general surgery service -Erwin catheter in place, -Right femoral line in place -Heparin for DVT prophylaxis -Patient DNR/DNI -if patient coutinues to have leukocytosis will consider doing a panscan and/or tagged wbc scan Acute on chronic hypoxia, uses 4 L at home, currently on 4 L, receiving peritoneal dialysis start home Lasix Acute on chronic anemia, from sepsis, bone marrow suppression, end-stage renal disease, cannot rule out slow GI bleed, continue Protonix, Carafate, s/p 1 unit PRBC NSTEMI: -Baseline troponin II 74, no acute ST-T wave changes, no chest pain complaints -Likely type II NSTEMI, from sepsis as above, however cannot rule out underlying cardiac etiology -Continue aspirin, statin, monitor for chest pain, End-stage renal disease on peritoneal dialysis, as above Generalized weakness secondary to sepsis, as above Diastolic CHF avoid fluid overload, peritoneal dialysis Insulin-dependent type 2 diabetes mellitus, low-dose sliding scale COPD currently not in exacerbation Pneumonitis, concerns for Covid on chest x-ray, currently on 4 L, no respiratory complaints, rapid Covid negative, likely fluid overload Peripheral arterial disease -underwent peripheral angiogram with orbital atherectomy and balloon angioplasty of the left superficial femoral. -Right severe SFA stenosis Status: Acute (2) NSTEMI (non-ST elevated myocardial infarction): Status: Acute (3) End stage renal disease: Status: Acute (4) Insulin dependent type 2 diabetes mellitus: Status: Acute (5) Peritoneal dialysis catheter in place: Status: Acute (6) Generalized weakness: Status: Acute (7) Secondary hyperparathyroidism: Status: Acute (8) Anemia: Status: Acute Qualifiers: Anemia type: due to chronic kidney disease Chronic kidney disease stage: on chronic dialysis Qualified Code(s): N18.6 - End stage renal disease; D63.1 - Anemia in chronic kidney disease; Z99.2 - Dependence on renal dialysis (9) Hypothyroidism: Status: Acute (10) Diastolic congestive heart failure: Status: Acute (11) COPD (chronic obstructive pulmonary disease): Status: Acute (12) Peritonitis due to infected peritoneal dialysis catheter: Status: Acute Attestations Medical Necessity Statement*: Patient requires hospitalization for oste omyelitis, cellulitis, wound infection, peritonitis, persistent leukocytosis, Coding Level of Care Code Acute Environmental Sampler for [facility] Diagnoses Sepsis A41.9 NSTEMI (non-ST elevated myocardial infarction) I21.4 End stage renal disease N18.6 Insulin dependent type 2 diabetes mellitus E11.9; Z79.4 Peritoneal dialysis catheter in place Z99.2 Generalized weakness R53.1 Secondary hyperparathyroidism N25.81 Anemia N18.6; D63.1; Z99.2 Anemia type: due to chronic kidney disease Chronic kidney disease stage: on chronic dialysis Hypothyroidism E03.9 Diastolic congestive heart failure I50.30 COPD (chronic obstructive pulmonary disease) J44.9 Peritonitis due to infected peritoneal dialysis catheter T85.71XA; K65.9
[2020-11-30] MEDS: polyethylene glycol 3350 Pkt 17 gm PO (15:53)
[2020-11-30] MEDS: linezolid premix 600 MG/300 ML PREMIX 300 MG IV (16:05)
--- NOTE | 2020-11-30 16:36 | P.PN_ITS ---
Subjective Subjective: Interval history: I am seeing him in follow up for his ESRD management. Pt refused peritoneal dialysis at night. No chest pain or shortness of breath Medications: Reviewed: Yes Vitals/I&O/Wt Last Vital Signs Temp 97.7 F 11/30/20 16:00 Pulse 86 11/30/20 16:00 Resp 17 11/30/20 16:00 BP 96/55 11/30/20 16:00 Pulse Ox 96 11/30/20 16:00 11/30/20 11/30/20 11/30/20 06:59 14:59 22:59 Intake Total 600 / 4814.167 Balance 600 / 2739.167 Physical Exam Const: COMMON NORMALS: no acute distress, patient oriented x3 and alert GENERAL APPEARANCE: cooperative ORIENTATION/CONSCIOUSNESS: Yes awake Resp: COMMON NORMALS: clear to auscultation bilaterally AUSCULTATION: clear to auscultation bilaterally Cardio: COMMON NORMALS: S1 normal heart sound present and S2 normal heart sound present HEART SOUNDS: S1 normal heart sound present and S2 normal heart sound present GI: AUSCULTATION: Yes normoactive bowel sounds Extremity: GENERAL: Yes edema Neuro: COMMON NORMALS: patient oriented x3 SENSORIUM/ORIENTATION: Yes alert Skin: COMMON NORMALS: no rashes or lesions noted GENERAL SKIN EXAM: no rash es or lesions noted Data : 11/30/20 05:31 11/30/20 05:31 Micro: Microbiology 11/28/20 12:06 Gram Stain - Final Foot - Left Tissue Culture - Preliminary Gram Negative Rods 11/27/20 14:45 Gram Stain - Final Other Source Wound Culture - Final Pseudomonas aeruginosa 11/27/20 21:54 Gram Stain - Final Peritoneal Fluid Body Fluid Culture - Preliminary 11/27/20 09:56 Urine Culture - Final Urine Catheterized 11/27/20 14:45 Anaerobic Culture - Preliminary Foot - #1 A&P Assessment and plan (1) End stage renal disease: Continue peritoneal dialysis without any change in regimen Status: Acute (2) Sepsis: continue antibiotics Status: Acute (3) Anemia: Follow hb Status: Acute Attestations Medical Necessity Statement*: sepsis Coding Level of Care Code Acute Move Coordinator for [facility] Fwd Diagnoses End stage renal disease N18.6 Sepsis A41.9 Anemia D64.9
[2020-11-30 17:05] LABS: Glucose Point of Care 211 mg/dL (70-110)
[2020-11-30] MEDS: insulin lispro 100 unit/1 mL SUBCUT (17:36)
[2020-11-30 20:07] LABS: Glucose Point of Care 118 mg/dL (70-110)
[2020-12-01] VITALS (11 sets, daily range): BP systolic 104–118; BP diastolic 52–65; PULSE 68–84; RESP 16–20; TEMP 36.4–36.9; O2SAT 91–98
[2020-12-01] MEDS: linezolid premix 600 MG/300 ML PREMIX 300 MG IV ×2 (02:28→14:59)
[2020-12-01] MEDS: piperacillin-tazobactam 3.375 GM in sodium chloride 0.9% (plus) 50 ML IV ×2 (03:22→17:41)
[2020-12-01 05:11] LABS: Basophils % 0.1 %; Eosinophils # 0.1 10^3/uL (0.0-0.8); Eosinophils % 0.2 %; Hematocrit 29.2 % (42.0-52.0); Hemoglobin 8.7 g/dL (11.7-16.6); Lymphocytes # 1.3 10^3/uL (0.8-4.8); Lymphocytes % 4.5 %; Mean Corpuscular HGB Conc 29.8 g/dL (30.0-36.0); Mean Corpuscular Hemoglobin 26.3 pg (28.0-34.0); Mean Corpuscular Volume 88.2 fl (80-94); Mean Platelet Volume 9.1 fL (7.4-10.4); Monocytes # 1.1 10^3/uL (0.2-0.9); Monocytes % 3.7 %; Neutrophils # 25.87 10^3/uL (1.8-7.7); Neutrophils % 90.4 %; Nucleated Red Blood Cells # 0.2 /100WBC; Nucleated Red Blood Cells % 0.5 %; Platelet Count 340 10^3/cmm (130-400); Red Blood Count 3.31 10^6/uL (4.1-5.3); Red Cell Distribution Width 19.3 % (12.1-15.1); White Blood Count 28.6 10^3/uL (4.0-10.0)
[2020-12-01 05:46] LABS: Alanine Aminotransferase 9 U/L (0-41); Alkaline Phosphatase 223 IU/L (40-130); Anion Gap 19.2 (5-19); Aspartate Amino Transferase 9 U/L (0-40); Blood Urea Nitrogen 62 mg/dL (8-23); C Reactive Protein 202.6 mg/L (0.0-4.9); Calcium 6.9 mg/dL (8.5-10.5); Carbon Dioxide 24 mmol/L (22-29); Chloride 97 mmol/L (98-107); Globulin 3.4 g/dL (1.3-4.6); Glomerular Filtration Rate 13.9 mL/min (90-130); Glucose 126 mg/dL (65-115); Magnesium 1.9 mg/dL (1.7-2.3); Osmolality Calculated 303 mOsm/kg (285-295); Phosphorus 5.1 mg/dL (2.5-4.5); Potassium 3.2 mmol/L (3.5-5.1); Sodium 137 mmol/L (136-145); Total Bilirubin 0.2 mg/dL (0.15-1.2); Total Protein 4.4 g/dL (6.6-8.7)
[2020-12-01 05:47] LABS: Lactate (Lactic Acid level) 1.3 mmol/L (0.5-2.2)
[2020-12-01 05:53] LABS: NT Pro B Type Natriuretic Pept 15261 pg/mL (0-125); Procalcitonin 1.31 ng/mL (0-0.5)
[2020-12-01] MEDS: aspirin 81 mg EC Tablet PO (06:11)
[2020-12-01] MEDS: levothyroxine 88 mcg Tablet PO (06:11)
[2020-12-01 06:32] LABS: Glucose Point of Care 134 mg/dL (70-110)
[2020-12-01] MEDS: Dianeal low Ca w/2.5% dex 2,000 mL Bag 2000 ML INTRAPERIT ×3 (08:06→16:13)
[2020-12-01] MEDS: docusate sodium 100 mg Capsule PO (08:32)
[2020-12-01] MEDS: heparin 5,000 unit/mL INJ 1 mL 5000 UNIT SUBCUT ×2 (08:32→20:54)
[2020-12-01] MEDS: pantoprazole DR 40 mg Tablet PO ×2 (08:32→17:41)
[2020-12-01] MEDS: midodrine 5 mg TABLET 10 MG PO ×3 (08:33→20:55)
[2020-12-01] MEDS: FUROsemide 40 mg Tablet PO (08:33)
[2020-12-01 11:26] LABS: Glucose Point of Care 149 mg/dL (70-110)
[2020-12-01] MEDS: insulin lispro 100 unit/1 mL SUBCUT (12:55)
[2020-12-01] MEDS: sucralfate 1 gm/10 mL Oral Liq UDC PO ×2 (12:56→20:54)
[2020-12-01] MEDS: polyethylene glycol 3350 Pkt 17 gm PO (15:01)
--- NOTE | 2020-12-01 15:06 | PM.PN ---
Subjective Subjective: Interval history: States he is doing all right. He is not bothered by abdominal pain. The same time when asked about his states he does not feel like eating due to lack of appetite. Denies pain or discomfort elsewhere either. Visited by his mother. Vitals/I&O/Wt Last Vital Signs Temp 98.5 F 12/01/20 10:56 Pulse 73 12/01/20 10:56 Resp 16 12/01/20 10:56 BP 117/65 12/01/20 10:56 Pulse Ox 96 12/01/20 10:56 12/01/20 12/01/20 12/01/20 06:59 14:59 22:59 Intake Total 300 / 900 50 / 50 Output Total 100 / 450 Balance 200 / 450 50 / 50 Physical Exam Const: COMMON NORMALS: no acute distress GENERAL APPEARANCE: frail appearing ORIENTATION/CONSCIOUSNESS: Yes awake HENMT: COMMON NORMALS: oropharynx normal Neck/C-Spine: COMMON NORMALS: no JVD Resp: COMMON NORMALS: normal respiratory effort and clear to auscultation bilaterally AUSCULTATION: clear to auscultation bilaterally Cardio: COMMON NORMALS: no JVD, regular rhythm, S1 normal heart sound present, S2 normal heart sound present and No murmurs present (Cardio) RHYTHM: regular rhythm HEART SOUNDS: S1 normal heart sound present and S2 normal heart sound present GI: COMMON NORMALS: Normal to inspection, nondistended, normoactive bowel sounds present, Soft to palpation and non-tender PALPATION: Yes Soft to palpation OTHER: PD catheter exits cleanly at L side abdomen Extremity: COMMON NORMALS: no joint enlargement GENERAL: Yes edema (1+ LE edema BL below knees) Neuro: COMMON NORMALS: moves all extremities Skin: COMMON NORMALS: no rashes or lesions noted GENERAL SKIN EXAM: no rashes or lesions noted LESIONS: lesion noted (Skin tears, shallow ulcerations lat R calf/eduardo. Shallow ulc ant L eduardo.) WOUNDS: Yes wounds noted (L ft w centt ant-plant deep wound to bone, necr nase. Loss of 4th toe, blee) other (Partial loss of 2nd, 4th digit, prior amp 1st dig.) OTHER: BL erythema Data : 12/01/20 04:45 12/01/20 04:45 Micro: Microbiology 11/27/20 21:54 Gram Stain - Final Peritoneal Fluid Body Fluid Culture - Final 11/27/20 14:45 Anaerobic Culture - Preliminary Foot - #1 11/27/20 11:38 Blood Culture - Preliminary Blood Coagulase negativ staphylococc 11/28/20 12:06 Gram Stain - Final Foot - Left Tissue Culture - Preliminary Gram Negative Rods 11/27/20 14:45 Gram Stain - Final Other Source Wound Culture - Final Pseudomonas aeruginosa 11/27/20 09:56 Urine Culture - Final Urine Catheterized A&P Assessment and plan (1) Wound of foot: Deep wound on anterior and mostly plantar aspect of left mid left foot with necrotic base, bone exposure, pressure loss of second, third toes, prior imitation of first toe. Discussed with him and his mother. Pseudomonas growing in the wound. Persistently nonhealing wound. Discussed also concern for recent sepsis with persistent leukocytosis, not entirely clear to this is coming from peritonitis as no growth there. Discussed concern for prolonged nonhealing, again treatment failure, as well as prolonged antibiotics. Discussed risk of continued functional decline, other complications. He is interested in discussing further regarding amputation, subsequently to hopefully allow faster healing, subsequently would like to resume ambulation with prosthesis. Discussed with surgery. Continue at this time wound care, packing, Zosyn, linezolid. Status: Acute (2) Sepsis: Secondary to wound infection, unclear whether possible peritonitis as well, although did have quite significant leukocytosis, 1300 WBC with [id number] predominance, but culture negative, no abdominal pain, slight pink, reported cloudy fluid on 11/27. Nephrology documentation appreciated. Had received intraperitoneal antibiotic initially for possible peritonitis, currently continues on IV. This appears to have been decreasing down to 469 on 11/29. Repeat peritoneal fluid analysis. Serum WBC count decreasing. Continue Zosyn, linezolid. Noted coag negative staph in blood culture 11/27, possible contaminant. High leukocytosis. Liquid stool currently, check C. difficile. Status: Acute (3) NSTEMI (non-ST elevated myocardial infarction): Status: Acute (4) End stage renal disease: Status: Acute (5) Insulin dependent type 2 diabetes mellitus: Status: Acute (6) Peritoneal dialysis catheter in place: Status: Acute (7) Generalized weakness: Status: Acute (8) Secondary hyperparathyroidism: Status: Acute (9) Anemia: Status: Acute Qualifiers: Anemia type: due to chronic kidney disease Chronic kidney disease stage: on chronic dialysis Qualified Code(s): N18.6 - End stage renal disease; D63.1 - Anemia in chronic kidney disease; Z99.2 - Dependence on renal dialysis (10) Hypothyroidism: Status: Acute (11) Diastolic congestive heart failure: Status: Acute (12) COPD (chronic obstructive pulmonary disease): Status: Acute (13) Peritonitis due to infected peritoneal dialysis catheter: Status: Acute (14) Status post excisional debridement: Status: Acute Additional A&P Information Pneumonitis, negative PCR for Covid, currently on 4 L, no respiratory complaints, rapid Covid negative, likely was fluid overload. Continue PD. Furosemide. Chronic hypoxia, uses 4 L at home, currently on 4 L Acute on chronic anemia, from sepsis, bone marrow suppression, end-stage renal disease, cannot rule out slow GI bleed, continue Protonix, Carafate, s/p 1 unit PRBC NSTEMI: -Baseline troponin II 74, no acute ST-T wave changes, no chest pain complaints -Likely type II NSTEMI, from sepsis as above, however cannot rule out underlying cardiac etiology -Continue aspirin, statin, monitor for chest pain, End-stage renal disease on peritoneal dialysis, as above Generalized weakness secondary to sepsis, as above Diastolic CHF avoid fluid overload, peritoneal dialysis Insulin-dependent type 2 diabetes mellitus, low-dose sliding scale COPD currently not in exacerbation Peripheral arterial disease -in July underwent peripheral angiogram with orbital atherectomy and balloon angioplasty of the left superficial femoral. -Right severe SFA stenosis Attestations Medical Necessity Statement*: Continue admission for assessment management of left foot nonhealing diabetic wound with necrotic tissue debridement, infection with bone exposure, improving possible peritonitis in a gentleman with multiple underlying comorbidities. Coding Level of Care Code Acute Hand Wrapper Operator for [facility] Fwd Diagnoses Wound of foot S91.309A Sepsis A41.9 NSTEMI (non-ST elevated myocardial infarction) I21.4 End stage renal disease N18.6 Insulin dependent type 2 diabetes mellitus E11.9; Z79.4 Peritoneal dialysis catheter in place Z99.2 Generalized weakness R53.1 Secondary hyperparathyroidism N25.81 Anemia N18.6; D63.1; Z99.2 Anemia type: due to chronic kidney disease Chronic kidney disease stage: on chronic dialysis Hypothyroidism E03.9 Diastolic congestive heart failure I50.30 COPD (chronic obstructive pulmonary disease) J44.9 Peritonitis due to infected peritoneal dialysis catheter T85.71XA; K65.9 Status post excisional debridement Z98.890
[2020-12-01 16:20] LABS: Mononuclear #, Pertinoneal Fl 0.046 10^3/uL; Polynuclear # Cells, Perit 0.053 10^3/uL
[2020-12-01 16:21] LABS: Appearance, Peritoneal Fluid Clear (Clear); Color, Peritoneal Fluid Colorless (Pale Yellow); Pathology Referral Yes; RBC Pertioneal Fluid 1 10^3/uL; WBC Peritoneal Fluid 99 /uL
--- NOTE | 2020-12-01 17:00 | PM.PN ---
Subjective Subjective: Interval history: I am seeing him in follow up for his ESRD management and dialysis needs. No nausea, vomiting or diarrhea Medications: Reviewed: Yes Vitals/I&O/Wt Last Vital Signs Temp 97.6 F 12/01/20 15:11 Pulse 68 12/01/20 15:11 Resp 16 12/01/20 15:11 BP 115/61 12/01/20 15:11 Pulse Ox 98 12/01/20 15:11 12/01/20 12/01/20 12/01/20 06:59 14:59 22:59 Intake Total 300 / 900 50 / 50 Output Total 100 / 450 Balance 200 / 450 50 / 50 Physical Exam Const: COMMON NORMALS: no acute distress, patient oriented x3 and alert GENERAL APPEARANCE: cooperative ORIENTATION/CONSCIOUSNESS: Yes awake OTHER: Telesteth did not connect Neuro: COMMON NORMALS: patient oriented x3 SENSORIUM/ORIENTATION: Yes alert Data : 12/01/20 04:45 12/01/20 04:45 Micro: Microbiology 11/28/20 12:06 Gram Stain - Final Foot - Left Tissue Culture - Preliminary Gram Negative Rods Pseudomonas aeruginosa 11/27/20 21:54 Gram Stain - Final Peritoneal Fluid Body Fluid Culture - Final 11/27/20 14:45 Anaerobic Culture - Preliminary Foot - #1 11/27/20 11:38 Blood Culture - Preliminary Blood Coagulase negativ staphylococc 11/27/20 14:45 Gram Stain - Final Other Source Wound Culture - Final Pseudomonas aeruginosa A&P Assessment and plan (1) End stage renal disease: Continue peritoneal dialysis, tolerating well, no change in regimen Status: Acute (2) Anemia: Will dose erythropoietin as needed Status: Acute (3) Sepsis: Continue antibiotics Status: Acute Attestations Medical Necessity Statement*: Sepsis Coding Level of Care Code Acute Aircraft Navigator for [facility] Fwd Diagnoses End stage renal disease N18.6 Anemia D64.9 Sepsis A41.9
[2020-12-01 17:02] LABS: Glucose Point of Care 174 mg/dL (70-110)
--- NOTE | 2020-12-01 17:56 | PC.NURSE ---
Patient refused evening meds. Notified doctor
--- NOTE | 2020-12-01 18:10 | PC.NURSE ---
Patient's foot was bleeding through the dressing on left foot. Notified Dr. Steinberg. Dr Steinberg states to change the dressing to surgicel, pack with 4x4, wrap with kerlix, wrap with Teodoro and elevate feet.
[2020-12-01 21:00] LABS: Glucose Point of Care 247 mg/dL (70-110)
[2020-12-02] VITALS (83 sets, daily range): BP systolic 41–149; BP diastolic 23–84; PULSE 56–133; RESP 10–42; TEMP 34.2–37; O2SAT 52–100
[2020-12-02] MEDS: Dianeal low Ca w/2.5% dex 2,000 mL Bag 2000 ML INTRAPERIT ×2 (00:23)
[2020-12-02] MEDS: norepinephrine 8 MG in dextrose 5 % 500 ML 76.2 MG IV ×2 (01:00→10:32)
--- NOTE | 2020-12-02 01:15 | CTR_ITS ---
PROCEDURE INFORMATION: Exam: CT Head Without Contrast Exam date and time: 12/02/2020 1:15 AM Age: 65 years old Clinical indication: Altered mental status/memory loss; Confusion or disorientation; Additional info: AMS TECHNIQUE: Imaging protocol: Computed tomography of the head without contrast. Radiation optimization: All CT scans at this facility use at least one of these dose optimization techniques: automated exposure control; mA and/or kV adjustment per patient size (includes targeted exams where dose is matched to clinical indication); or iterative reconstruction. COMPARISON: CT head wo con* [id number] 03/15/2019 3:57 AM RADIATION DOSE METRICS: Total DLP (mGy-cm): 734.97 FINDINGS: Brain: There is mild parenchymal atrophy and chronic small vessel disease. No acute infarct or hemorrhage. Cerebral ventricles: No ventriculomegaly. Paranasal sinuses: Stable left maxillary sinus mucosal thickening. Mastoid air cells: Visualized mastoid air cells are clear. Bones/joints: Unremarkable. No acute fracture. Soft tissues: Unremarkable. Other findings: The examination is limited by patient motion. CT/CT head wo con* [id number] IMPRESSION: 1. The examination is limited by patient motion. 2. No acute infarct or hemorrhage. 3. Mild parenchymal atrophy and chronic small vessel disease. Radiation Dose CTDIVOL = (mGy): DLP = 734.97 (mGy-cm)
--- NOTE | 2020-12-02 01:17 | XRR_ITS ---
PROCEDURE INFORMATION: Exam: XR Chest Exam date and time: 12/02/2020 1:17 AM Age: 65 years old Clinical indication: Dyspnea; Additional info: Acute dyspnea TECHNIQUE: Imaging protocol: XR of the chest. Views: 1 view. COMPARISON: CR XR chest 1V portable [id number] 11/27/2020 8:58 AM FINDINGS: Lungs: Mild emphysema. Hazy left basilar opacity which could be secondary to atelectasis or pneumonia. Pleural spaces: Unremarkable. No pleural effusion. No pneumothorax. Heart/Mediastinum: Unremarkable. No cardiomegaly. Bones/joints: Unremarkable. XR/XR chest 1V portable [id number] IMPRESSION: 1. Hazy left basilar opacity which could be secondary to atelectasis or pneumonia. 2. Mild emphysema. Radiation Dose CTDIVOL = (mGy): DLP = (mGy-cm)
--- NOTE | 2020-12-02 01:25 | PC.NURSE ---
Update This nurse called patient's mother, Emily, to update her of patient being moved to ICU 9. Updated mother that compressions and intubation will not be initiated as per patient wishes and AND status. Mother agrees that patient did not want life-prolonging measures such as compressions or intubation. Mother made aware that patient was to be placed on bipap and that medications were being given in an attempt to raise patient's blood pressure. Mother states that she is agreeable to these interventions. Informed Emily that patient's status is very poor at this time and that if she would like to come in then she is welcome to as patient may continue to decline rapidly. Emily states that she will get ahold of her daughter to bring her in. ICU staff updated.
--- NOTE | 2020-12-02 01:25 | ECG_ITS ---
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 Measurements Intervals [place] Rate: 81 P: 81 CO: 144 QRS: 5 QRSD: 87 T: 43 QT: 359 QTc: 417 Interpretive Statements SINUS RHYTHM LOW QRS VOLTAGE [QRS DEFLECTION < 0.5/1.0 mV IN LIMB/CHEST LEADS] POSSIBLE ANTERIOR MYOCARDIAL INFARCTION , PROBABLY OLD [30 ms Q WAVE IN V3/V4, OR R < 0.2 mV IN V4] INTERPRETATION BASED ON A DEFAULT AGE OF 40 YEARS Compared to ECG 11/27/2020 13:56:19 Myocardial infarct finding now present T-wave abnormality no longer present Possible ischemia no longer present Electronically Signed On 12-02-2020 14:24:45 CDT by Socrates Rios M.D. [email or web address] [email or web address].SwimTopia/store/NU/[id number] nina
--- NOTE | 2020-12-02 01:34 | PC.NURSE ---
patient behavior at baseline at throughout shift, speech clear, took meds orally, responded verbally and responses appropriate, assisted with linen change and hygiene, @2320 clamped removed from dialysis bag to drain, patient remained at baseline, drainage slow, fully drained at 0010 and new dianeal bag started, patient more pale, breath shallow, charge nurse notified and received instruction to notify Dr. Zarate, Dr. Zarate on floor at this time and notified of patients change in condition, Dr. Zarate reviewed notes while charge nurse in room with patient assessing patient, dR. [facility] requested for rapid response called. rapid response called, patient left floor to ICU approx, 0115. see rapid response notes for more detail.
[2020-12-02 01:35] LABS: Glucose Point of Care 230 mg/dL (70-110)
--- NOTE | 2020-12-02 01:40 | P.EN_ITS ---
Event Note Event Note: I was called at patient's bedside by the nurse due to acute change in status noticed at around midnight. Patient was last noted to be normal at 11:30 PM tonight when PD had been started. On rechecking at around midnight, patient was noted to be completely unresponsive. He was gasping, shallow respirations at at 6/min, peripheral radial pulses were not palpable, weak carotid and femoral pulses noted, blood pressure was not recordable. Patient was unable to be awakened with verbal or painful stimulus. Pupils noted to be bilateral mid dilated, poorly responsive. He has not received any opiates. Sinus rhythm noted on groundwater monitoring technician at 70 bpm. Rapid response was called. Ambu bag ventilation initiated, patient has a documented DNR/DNI status therefore endotracheal intubation was not performed. Patient given 1 L of IV fluid bolus, started on Levophed, stat CT head taken and patient moved to ICU. CT head without any acute bleed per my read, radiology confirmation remains pending. Stat chest x-ray ordered, no pneumothorax noted again per my read. Unable to get an ABG at this time due to hypotension and poor peripheral pulses. With Levophed at 30 mics, blood pressure 59/40 mmHg. Patient has right CVC for access. Stat CBC, CMP, troponin ordered. EKG with sinus rhythm, no acute ST-T wave changes noted. Differential considerations at this time include acute stroke, cardiac event such as myocardial infarction, massive PE. Awaiting hemoglobin prior to considering anticoagulation. Mother called with all updates. She confirms DNR/DNI status but okay to proceed with ICU care, pressors, all necessary medical management. Event Notes Attestations Time Spent in Patient Care: Greater than 35 minutes critical care time including time for rapid response and ICU care at 60 minutes
[2020-12-02 01:54] LABS: Alanine Aminotransferase 16 U/L (0-41); Albumin Level 1.3 g/dL (3.5-5.2); Alkaline Phosphatase 161 IU/L (40-130); Anion Gap 29.4 (5-19); Aspartate Amino Transferase 29 U/L (0-40); Blood Urea Nitrogen 52 mg/dL (8-23); Calcium 7.2 mg/dL (8.5-10.5); Carbon Dioxide 15 mmol/L (22-29); Chloride 94 mmol/L (98-107); Globulin 2.7 g/dL (1.3-4.6); Glomerular Filtration Rate 14.7 mL/min (90-130); Glucose 247 mg/dL (65-115); Osmolality Calculated 300 mOsm/kg (285-295); Potassium 4.4 mmol/L (3.5-5.1); Sodium 134 mmol/L (136-145); Total Bilirubin 0.2 mg/dL (0.15-1.2)
[2020-12-02 01:57] LABS: Troponin(5th) Baseline 320 ng/L (0-15)
[2020-12-02 01:58] LABS: Basophils % 0.1 %; Hemoglobin 6.8 g/dL (11.7-16.6); Lymphocytes # 0.8 10^3/uL (0.8-4.8); Lymphocytes % 3.1 %; Mean Corpuscular HGB Conc 28.3 g/dL (30.0-36.0); Mean Corpuscular Volume 95.2 fl (80-94); Mean Platelet Volume 9.3 fL (7.4-10.4); Monocytes # 1.1 10^3/uL (0.2-0.9); Monocytes % 3.9 %; Neutrophils % 88.9 %; Nucleated Red Blood Cells # 1.4 /100WBC; Nucleated Red Blood Cells % 4.9 %; Platelet Count 277 10^3/cmm (130-400); Red Blood Count 2.52 10^6/uL (4.1-5.3); Red Cell Distribution Width 19.7 % (12.1-15.1); White Blood Count 27.4 10^3/uL (4.0-10.0)
[2020-12-02 02:02] LABS: Slide Review Slide Review Perform
[2020-12-02 02:29] LABS: ABG PCO2 45.3 mmHg (35-45); Arterial Blood Gas Hematocrit 19.7 % (42-52); Base Excess ABG -15.7 mmol/L (-2.0-2.0); Blood Gas Allen Test Pos; Blood Gas Operator Identificat JB; Blood Gas Sample Site Radial, right; Blood Gas Sample Type Arterial; HCO3 ABG 13.1 mmol/L (22-26); Oxygen Device BIPAP
[2020-12-02 02:30] LABS: ABG PH Result 7.07 (7.35-7.45)
[2020-12-02 03:29] LABS: Ionized Calcium 0.9 mmol/L (1.1-1.4)
[2020-12-02 03:47] LABS: Basophils # 0.1 10^3/uL (0.0-0.1); Basophils % 0.2 %; Eosinophils # 0.2 10^3/uL (0.0-0.8); Eosinophils % 0.5 %; Hematocrit 22.4 % (42.0-52.0); Mean Corpuscular HGB Conc 28.6 g/dL (30.0-36.0); Mean Corpuscular Hemoglobin 27.4 pg (28.0-34.0); Mean Corpuscular Volume 95.7 fl (80-94); Mean Platelet Volume 9.2 fL (7.4-10.4); Monocytes # 0.9 10^3/uL (0.2-0.9); Monocytes % 2.5 %; Neutrophils # 33.17 10^3/uL (1.8-7.7); Nucleated Red Blood Cells % 5.4 %; Platelet Count 380 10^3/cmm (130-400); Red Blood Count 2.34 10^6/uL (4.1-5.3); Red Cell Distribution Width 19.3 % (12.1-15.1)
--- NOTE | 2020-12-02 03:49 | ECG_ITS ---
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 Measurements Intervals [facility] [place] Rate: 95 P: 102 [place]: 128 QRS: 45 QRSD: 89 T: 136 QT: 361 QTc: 454 Interpretive Statements SINUS RHYTHM LOW QRS VOLTAGE [QRS DEFLECTION < 0.5/1.0 mV IN LIMB/CHEST LEADS] POSSIBLE ANTERIOR MYOCARDIAL INFARCTION , PROBABLY OLD [30 ms Q WAVE IN V3/V4, OR R < 0.2 mV IN V4] MODERATE T-WAVE ABNORMALITY, CONSIDER LATERAL ISCHEMIA [-0.1+ mV T-WAVE IN I/aVL/V5/V6] Compared to ECG 12/02/2020 00:57:02 T-wave abnormality now present Possible ischemia now present Myocardial infarct finding still present Electronically Signed On 12-02-2020 15:52:00 CDT by Socrates Rios M.D. [id number]
[2020-12-02] MEDS: piperacillin-tazobactam 3.375 GM in sodium chloride 0.9% (plus) 50 ML IV (04:00)
[2020-12-02 04:11] LABS: Alanine Aminotransferase 79 U/L (0-41); Albumin Level 1.1 g/dL (3.5-5.2); Alkaline Phosphatase 167 IU/L (40-130); Aspartate Amino Transferase 208 U/L (0-40); Blood Urea Nitrogen 51 mg/dL (8-23); C Reactive Protein 128.1 mg/L (0.0-4.9); Calcium 6.7 mg/dL (8.5-10.5); Carbon Dioxide 13 mmol/L (22-29); Chloride 97 mmol/L (98-107); Glomerular Filtration Rate 14.7 mL/min (90-130); Glucose 232 mg/dL (65-115); Magnesium 2.2 mg/dL (1.7-2.3); Osmolality Calculated 307 mOsm/kg (285-295); Sodium 138 mmol/L (136-145); Total Bilirubin 0.2 mg/dL (0.15-1.2); Total Protein 3.1 g/dL (6.6-8.7)
--- NOTE | 2020-12-02 04:11 | PC.NURSE ---
Responded to rapid 0030 and patient was unresponsive. Were unable to obtain a BP, temp, or sp02. Patient was started on Levophed, bagged by respiratory, and taken to get a head CT. Family was called and started to come to the hospital. Patient was brought to ICU 9. Bipap was put on patient, started vasopressin, and labs were drawn. Family arrived at bedside and Dr. Zarate explained the status of the patient. Family is discussing comfort care at bedside. See MAR for titrations.
[2020-12-02 04:17] LABS: NT Pro B Type Natriuretic Pept 21941 pg/mL (0-125)
[2020-12-02 04:19] LABS: Anion Gap 31.9 (5-19); Lactate (Lactic Acid level) 11.1 mmol/L (0.5-2.2); Phosphorus 8.5 mg/dL (2.5-4.5); Potassium 3.9 mmol/L (3.5-5.1); Troponin 5 2HR 297.2 ng/L (0-15); Troponin 5 2HR Delta -22.8 ABS# (0-10)
[2020-12-02 04:39] LABS: Slide Review Slide Review Perform
[2020-12-02 04:40] LABS: Hemoglobin 6.4 g/dL (11.7-16.6); White Blood Count 36.9 10^3/uL (4.0-10.0)
[2020-12-02 06:22] LABS: ABG PCO2 32.7 mmHg (35-45); ABG PH Result 7.22 (7.35-7.45); Alveolar-Arterial Oxygen Gradi 32.2 mmHg (5-10); Arterial Blood Gas Hematocrit 42.4 % (42-52); Base Excess ABG -13.1 mmol/L (-2.0-2.0); Blood Gas Allen Test Pos; Blood Gas Operator Identificat JB; Blood Gas Sample Site Radial, right; Blood Gas Sample Type Arterial; HCO3 ABG 13.4 mmol/L (22-26); HGB O2 Sat 88.6 % (95-100); Methemoglobin 0.5 % (0.4-1.5); Oxygen Device BIPAP; PO2 ABG 62.6 mmHg (80.0-100.0); Potassium Level - ABG 3.7 mmol/L (3.5-5.0); Total Hemoglobin 13.8 g/dL (14-18)
--- NOTE | 2020-12-02 07:38 | PM.PN ---
Subjective Subjective: Interval history: overnight events noted- transferred to ICU. on 2 pressers, bipap, hypoxic, poor BS Medications: Reviewed: Yes Medication Review Details: Current Medications Acetaminophen (Acetaminophen 325 Mg Tablet) 650 mg PO Q6H PRN PRN Reason: Mild/Mod Pain Or Temp >/= 101 Aspirin (Aspirin 81 Mg Ec Tablet) 81 mg PO QAM [facility] Last Admin: 12/02/20 07:44 Dose: Not Given Documented by: Atorvastatin Calcium (Atorvastatin 40 Mg Tablet) 40 mg PO QPM [facility] Last Admin: 12/01/20 17:55 Dose: Not Given Documented by: Dextrose (Dextrose 50% Syringe 50 Ml) 25 ml IVP ONCE PRN; Protocol PRN Reason: hypoglycemia protocol Dextrose (Dextrose 50% Syringe 50 Ml) 50 ml IVP PRN PRN; Protocol PRN Reason: hypoglycemia protocol Docusate Sodium (Docusate Sodium 100 Mg Capsule) 100 mg PO BID [facility] Last Admin: 12/01/20 17:55 Dose: Not Given Documented by: Furosemide (Furosemide 40 Mg Tablet) 40 mg PO BID [facility] Last Admin: 12/01/20 17:55 Dose: Not Given Documented by: Gentamicin Sulfate (Gentamicin 0.1% Cream 15 Gm) 1 applic TOPICAL PRN PRN PRN Reason: AFTER CLEANSING SITE Gentamicin Sulfate (Gentamicin 0.1% Cream 15 Gm) 1 applic TOPICAL DAILY [facility] Last Admin: 12/01/20 10:40 Dose: 1 applic Documented by: Glucagon (Glucagon 1 Mg/Ml Inj 1 Ml) 1 mg IM ONCE PRN; Protocol PRN Reason: Adult Acute Hypoglycemia Prot. Heparin Sodium (Porcine) (Heparin 5,000 Unit/Ml Inj 1 Ml) 5,000 unit SUBCUT Q12H [facility] Last Admin: 12/01/20 20:54 Dose: 5,000 unit Documented by: Linezolid (Zyvox Premix) 600 mg in 300 mls @ 300 mls/hr IV Q12H [facility]; Protocol Last Infusion: 12/01/20 18:10 Dose: Infused Documented by: Piperacillin Sod/Tazobactam (Sod 3.375 gm/ Sodium Chloride) 50 mls @ 12.5 mls/hr IV Q12H [facility]ENNIE; Protocol Last Admin: 12/02/20 04:00 Dose: 12.5 mls/hr Documented by: Dextrose (D5w) 500 mls @ 100 mls/hr IV ONCE PRN; Protocol PRN Reason: Adult Acute Hypoglycemia Prot Vasopressin 100 unit/ Sodium (Chloride) 100 mls @ 0 mls/hr IV .Q0M [facility]ENNIE; Protocol Last Titration: 12/02/20 03:35 Dose: 0.06 unit/min, 3.6 mls/hr Documented by: Dopamine HCl/Dextrose (Intropin Drip) 400 mg in 250 mls @ 13.013 mls/hr IV CONT [facility]; Protocol Last Admin: 12/02/20 05:43 Dose: Not Given Documented by: Epinephrine HCl 2.5 mg/ Sodium (Chloride) 252.5 mls @ 0 mls/hr IV .Q0M LENNIE; Protocol Norepinephrine Bitartrate 4 mg (/ Dextrose) 254 mls @ 0 mls/hr IV .Q0M [facility]ENNIE; Protocol Ciprofloxacin/Dextrose (Cipro) 200 mg in 100 mls @ 100 mls/hr IV Q24H [facility]ENN[facility]; Protocol Norepinephrine Bitartrate 8 mg (/ Dextrose) 508 mls @ 0 mls/hr IV .Q0M [facility]ENNIE; Protocol Last Titration: 12/02/20 05:35 Dose: 20 mcg/min, 76.2 mls/hr Documented by: Insulin Human Lispro (Insulin Lispro 100 Unit/1 Ml) 0 unit SUBCUT TIDWM [facility]; Protocol Last Admin: 12/01/20 17:55 Dose: Not Given Documented by: Levothyroxine Sodium (Levothyroxine 88 Mcg Tablet) 88 mcg PO QAM [facility] Last Admin: 12/02/20 07:44 Dose: Not Given Documented by: Magnesium Hydroxide (Magnesium Hydroxide 30 Ml Udc) 30 ml PO BID PRN PRN Reason: CONSTIPATION Last Admin: 11/30/20 09:43 Dose: 30 ml Documented by: Midodrine (Midodrine 5 Mg Tablet) 10 mg PO TID [facility] Last Admin: 12/01/20 20:55 Dose: 10 mg Documented by: Naloxone HCl (Naloxone 0.4 Mg/Ml Sdv) 0.1 mg IVP Q2M PRN PRN Reason: OPIATERV Non-Formulary Medication (Vit B,G-Lb-Snul-Selen-Vit D3-E [Renaplex-D]) 1 tab PO QPM [facility] Last Admin: 12/01/20 17:55 Dose: Not Given Documented by: Ondansetron HCl (Ondansetron 2 Mg/Ml Sdv 2 Ml) 4 mg IVP Q8H PRN PRN Reason: vomiting, or N/V if npo Oxycodone/Acetaminophen (Oxycodone-Apap 5-325 Mg Tablet) 1 tab PO Q6H PRN PRN Reason: SEVERE Pain Last Admin: 11/30/20 12:49 Dose: 1 tab Documented by: Pantoprazole Sodium (Pantoprazole Dr 40 Mg Tablet) 40 mg PO BID [facility] Last Admin: 12/01/20 17:41 Dose: 40 mg Documented by: Peritoneal Dialysis Solution (Dianeal Low Ca W/2.5% Dex 2,000 Ml Bag) 2,000 ml INTRAPERIT Q6H [facility] Last Admin: 12/02/20 00:23 Dose: 2,000 ml Documented by: Polyethylene Glycol (Polyethylene Glycol 3350 Pkt 17 Gm) 17 gm PO Q12H [facility] Last Admin: 12/02/20 05:48 Dose: Not Given Documented by: Fluticasone/Salmeterol (Fluticasone-Salmeterol 250-50 Diskus) 1 puff INHALATION BID.RESPIRATORY [facility]ENN[facility] Last Admin: 12/01/20 20:22 Dose: 1 puff Documented by: Sucralfate (Sucralfate 1 Gm/10 Ml Oral Liq Udc) 1 gm PO AC&BEDTIME [facility]ENN[facility] Last Admin: 12/02/20 07:44 Dose: Not Given Documented by: Vitals/I&O/Wt Last Vital Signs Temp 97.4 F L 12/02/20 06:16 Pulse 101 H 12/02/20 06:41 Resp 33 H 12/02/20 06:16 BP 101/58 12/02/20 06:16 Pulse Ox 66 L 12/02/20 06:16 12/01/20 12/02/20 12/02/20 22:59 06:59 14:59 Intake Total 350 / 400 505.86 / 905.86 Output Total 200 / 200 Balance 350 / 400 305.86 / 705.86 Physical Exam Narrative: EXAM NARRATIVE: obese, very ill appearing vs noted heent- nc/at, eomi, anicteric neck supple lungs clear heart -reg, tachy abd soft, mild tender, + hypoactive bs ext 1+ edema neuro-sedated Data : 12/02/20 03:17 12/02/20 03:17 Micro: Microbiology 11/27/20 14:45 Anaerobic Culture - Preliminary Foot - #1 11/28/20 12:06 Gram Stain - Final Foot - Left Tissue Culture - Preliminary Gram Negative Rods Pseudomonas aeruginosa 11/27/20 21:54 Gram Stain - Final Peritoneal Fluid Body Fluid Culture - Final A&P Additional A&P Information 65 yr old man ESRD, IDDM, 1. foot infection, peritonitis -Deep wound on anterior and mostly plantar aspect of left mid left foot with necrotic base, bone exposure, pressure loss of second, third toes -on abx for pseudomonas Peritonitis- PD WBC improving 2. decompensated overnight- w/ hypotension and lactic acidosis- I am concerned for an intra-abdominal process, or possible sepsis from leg/ foot 3. severe leukocytosis 4. anemia- Q of GI or retroperioneal bleed 5 met acidosis improving from 6.94 to 7.22 -lactate 11 6. hypoxemia 7. trop 320 8. ESRD and septic shock- i spoke to pts mother and sister- pt is on 2 pressers- if they want aggressive care- would recommend HD catheter and attempt CRRT. Familt does not want new dialysis catheter - i explained that we can try PD- however, if he has an abd process he may worsen -will attempt CAPD- 1 linstill 4 hr exchanges 1.5% gluc and monitor -can adjust PD if he improves -prognosis is poor time spent 40 minutes seen and examined w/ rN- telehealth visit discussed w/ Dr. Gregory Attestations Medical Necessity Statement*: septic shock in icu Time Spent in Patient Care: Greater than 35 minutes Coding Level of Care Code Acute Manager Tax for Brynn Castro
--- NOTE | 2020-12-02 07:49 | ECG_ITS ---
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 Measurements Intervals [place] Rate: 107 P: 90 CO: 140 QRS: -3 QRSD: 89 T: 140 QT: 318 QTc: 426 Interpretive Statements SINUS TACHYCARDIA LOW QRS VOLTAGE [QRS DEFLECTION < 0.5/1.0 mV IN LIMB/CHEST LEADS] POSSIBLE ANTERIOR MYOCARDIAL INFARCTION , PROBABLY OLD [30 ms Q WAVE IN V3/V4, OR R < 0.2 mV IN V4] Compared to ECG 12/02/2020 04:04:30 Sinus rhythm no longer present T-wave abnormality no longer present Possible ischemia no longer present Myocardial infarct finding still present Electronically Signed On 12-02-2020 15:51:39 CDT by Socrates Rios M.D. [id number]
[2020-12-02 07:56] LABS: Glucose Point of Care 200 mg/dL (70-110)
[2020-12-02 07:56] LABS: Glucose Point of Care 229 mg/dL (70-110)
[2020-12-02 07:56] LABS: Glucose Point of Care 257 mg/dL (70-110)
[2020-12-02] MEDS: ciprofloxacin 200 MG/100 ML PREMIX 100 MG IV (08:11)
[2020-12-02] MEDS: linezolid premix 600 MG/300 ML PREMIX 300 MG IV (08:11)
[2020-12-02] MEDS: heparin 5,000 unit/mL INJ 1 mL 5000 UNIT SUBCUT (08:12)
[2020-12-02] MEDS: insulin lispro 100 unit/1 mL SUBCUT ×2 (08:30→13:32)
--- NOTE | 2020-12-02 09:13 | P.PN_ITS ---
Subjective Subjective: Interval history: Eyes open partially, appears to perhaps look around sometimes, but no history of possible right-sided gaze preference, though does not answer questions or follow commands. Vitals/I&O/Wt Last Vital Signs Temp 97.4 F L 12/02/20 06:16 Pulse 101 H 12/02/20 06:41 Resp 33 H 12/02/20 06:16 BP 101/58 12/02/20 06:16 Pulse Ox 66 L 12/02/20 06:16 12/01/20 12/02/20 12/02/20 22:59 06:59 14:59 Intake Total 350 / 400 505.86 / 905.86 Output Total 200 / 200 Balance 350 / 400 305.86 / 705.86 Physical Exam Const: COMMON NORMALS: no acute distress; negative for alert GENERAL APPEARANCE: frail appearing ORIENTATION/CONSCIOUSNESS: Yes patient obtunded OTHER: Very weak HENMT: COMMON NORMALS: oropharynx normal Neck/C-Spine: COMMON NORMALS: no JVD Resp: COMMON NORMALS: normal respiratory effort and clear to auscultation bilaterally AUSCULTATION: clear to auscultation bilaterally Cardio: COMMON NORMALS: no JVD, regular rhythm, S1 normal heart sound present, S2 normal heart sound present and No murmurs present (Cardio) RHYTHM: regular rhythm HEART SOUNDS: S1 normal heart sound present and S2 normal heart sound present GI: COMMON NORMALS: Normal to inspection, nondistended, normoactive bowel sounds present, Soft to palpation and non-tender PALPATION: Yes Soft to palpation OTHER: PD catheter exits cleanly at L side abdomen Extremity: COMMON NORMALS: no joint enlargement GENERAL: Yes edema (1+ LE edema BL below knees) Neuro: COMMON NORMALS: moves all extremities SENSORIUM/ORIENTATION: No alert Skin: COMMON NORMALS: no rashes or lesions noted GENERAL SKIN EXAM: no rashes or lesions noted LESIONS: lesion noted (Skin tears, shallow ulcerations lat R calf/eduardo. Shallow ulc ant L eduardo.) WOUNDS: Yes wounds noted (L ft w centt ant-plant deep wound to bone, necr nase. Loss of 4th toe, blee) other (Partial loss of 2nd, 4th digit, prior amp 1st dig.) OTHER: BL erythema Data : 12/02/20 03:17 12/02/20 03:17 Micro: Microbiology 11/27/20 14:45 Anaerobic Culture - Preliminary Foot - #1 11/28/20 12:06 Gram Stain - Final Foot - Left Tissue Culture - Preliminary Gram Negative Rods Pseudomonas aeruginosa 11/27/20 21:54 Gram Stain - Final Peritoneal Fluid Body Fluid Culture - Final A&P Assessment and plan (1) Sepsis: Acute decompensation overnight, septic shock, overnight lactic acidosis up to 11, pH down to 7.07. Currently on 20 mcg Levophed, 0.06 vasopressin. Per discussions with family no additional escalation of care, no intubation, mechanical ventilation, no CPR or resuscitation as per his prior wishes. They would like to see how he is doing, as he is reported to have stated he pressure would not want amputation surgery for example even if it took his life, per their discussion per his mother. Antibiotics were broadened with Cipro. Discussed with him consideration of additional managing by CT, will request for now, however, depending on his condition may or may not be able to undergo. However, discussed with them consideration that with herniation, high lactic elevation, rapidly compensation, consideration may be given to possible bowel ischemia, but this again would require surgical intervention for treatment. Discussed imaging may give us additional answers. We are for now tentatively requesting CT scan. Discussed additional consideration of giving vancomycin possibly by NG tube, although they are very hesitant about any additional lines or tubes. For now requesting per rectum due to possibility of C. difficile as well given prior history, very high leukocytosis, rapid compensation, as well as discussed with them peritoneal fluid was showing improvement on cell counts yesterday down to 99 WBCs. Broadening also with vancomycin CT, IV Flagyl. If he is not showing improvement, family leaning to rather transitioning to comfort measures. Hypoxic, but hypoxic appears to be improving and likely related to inadequate respiration, currently tachypneic in the 30s, on BiPAP support, although FiO2 came down to 60% from 100. Noted to proliferation, 320 baseline, trending down to 297 at 2 h, suspected demand ischemia secondary to acute decompensation with septic shock on multiple pressors in setting of ESRD on dialysis. Peritoneal dialysate not infused last night. This morning infusion curtailed. Multifactorial. Currently additional process apart from peritonitis, possibly other intra-abdominal process. As well as secondary to wound infection, possible peritonitis as well, although did have quite significant leukocytosis, 1300 WBC with [id number] predominance, but culture negative, no abdominal pain, slight pink, reported cloudy fluid on 11/27. Nephrology documentation appreciated. Had received intraperitoneal antibiotic initially for possible peritonitis, cur rently continues on IV. This appears to have been decreasing down to 469 on 11/29. Repeat peritoneal fluid analysis. Serum WBC count decreasing. Continue Zosyn, linezolid. Noted coag negative staph in blood culture 11/27, possible contaminant. Status: Acute (2) Anemia: Acute on chronic worsening of anemia, hemoglobin down to 6.4, receiving PRBC. Will request DIC panel. Hold aspirin. Transition PPI twice daily to IV. Status: Acute Qualifiers: Anemia type: due to chronic kidney disease Chronic kidney disease stage: on chronic dialysis Qualified Code(s): N18.6 - End stage renal disease; D63.1 - Anemia in chronic kidney disease; Z99.2 - Dependence on renal dialysis (3) Wound of foot: Deep wound on anterior and mostly plantar aspect of left mid left foot with necrotic base, bone exposure, pressure loss of second, third toes, prior imitation of first toe. Discussed with him and his mother. Pseudomonas growing in the wound. Persistently nonhealing wound. Discussed also concern for recent sepsis with persistent leukocytosis, not entirely clear to this is coming from peritonitis as no growth there. Discussed concern for prolonged nonhealing, again treatment failure, as well as prolonged antibiotics. Discussed risk of continued functional decline, other complications. He is interested in discussing further regarding amputation, subsequently to hopefully allow faster healing, subsequently would like to resume ambulation with prosthesis. Discussed with surgery. Continue at this time wound care, packing, Zosyn, linezolid. Status: Acute (4) NSTEMI (non-ST elevated myocardial infarction): Status: Acute (5) End stage renal disease: Status: Acute (6) Insulin dependent type 2 diabetes mellitus: Status: Acute (7) Peritoneal dialysis catheter in place: Status: Acute (8) Generalized weakness: Status: Acute (9) Secondary hyperparathyroidism: Status: Acute (10) Hypothyroidism: Status: Acute (11) Diastolic congestive heart failure: Status: Acute (12) COPD (chronic obstructive pulmonary disease): Status: Acute (13) Peritonitis due to infected peritoneal dialysis catheter: Status: Acute (14) Status post excisional debridement: Status: Acute (15) Acute encephalopathy: Status: Acute Additional A&P Information Pneumonitis, negative PCR for Covid, currently on 4 L, no respiratory complaints, rapid Covid negative, likely was fluid overload. Continue PD. Furosemide. Chronic hypoxia, uses 4 L at home, currently on 4 L Acute on chronic anemia, from sepsis, bone marrow suppression, end-stage renal disease, cannot rule out slow GI bleed, continue Protonix, Carafate, s/p 1 unit PRBC NSTEMI: -Baseline troponin II 74, no acute ST-T wave changes, no chest pain complaints -Likely type II NSTEMI, from sepsis as above, however cannot rule out underlying cardiac etiology -Continue aspirin, statin, monitor for chest pain, End-stage renal disease on peritoneal dialysis, as above Generalized weakness secondary to sepsis, as above Diastolic CHF avoid fluid overload, peritoneal dialysis Insulin-dependent type 2 diabetes mellitus, low-dose sliding scale COPD currently not in exacerbation Peripheral arterial disease -in July underwent peripheral angiogram with orbital atherectomy and balloon angioplasty of the left superficial femoral. -Right severe SFA stenosis Attestations Medical Necessity Statement*: Continue admission for assessment of management of acute septic shock. Coding Level of Care Code Acute [place] [facility] for [facility] Fwd Diagnoses Sepsis A41.9 Anemia N18.6; D63.1; Z99.2 Anemia type: due to chronic kidney disease Chronic kidney disease stage: on chronic dialysis Wound of foot S91.309A NSTEMI (non-ST elevated myocardial infarction) I21.4 End stage renal disease N18.6 Insulin dependent type 2 diabetes mellitus E11.9; Z79.4 Peritoneal dialysis catheter in place Z99.2 Generalized weakness R53.1 Secondary hyperparathyroidism N25.81 Hypothyroidism E03.9 Diastolic congestive heart failure I50.30 COPD (chronic obstructive pulmonary disease) J44.9 Peritonitis due to infected peritoneal dialysis catheter T85.71XA; K65.9 Status post excisional debridement Z98.890 Acute encephalopathy G93.40
--- NOTE | 2020-12-02 09:17 | CT_ITS ---
WS: [id number] CT ABDOMEN AND PELVIS WITH CONTRAST HISTORY: septic shock TECHNIQUE: Imaging performed of the abdomen and pelvis with IV contrast. Single phase imaging of the abdomen. Coronal and sagittal reformats are submitted. All CT scans at [facility] use at [address] one of these dose optimization techniques: automated exposure control; mA and/or kV adjustment per patient size (includes targeted exams where dose is matched to clinical indication); or iterative re construction. IV CONTRAST: Visipaque 320; 95 mL IV. Oral contrast: No DLP: 1782.77 mGy.cm COMPARISON: 11/27/2020 Lower thorax: Small bilateral pleural effusions and dependent changes at the lung bases. There are sc attered pulmonary opacifications, bilaterally probably representing pneumonia. Mild improvement since the prior study of 11/27/2020. Heart size is normal. Moderate amount of fluid in the distal esophagus . Liver/biliary system: Abnormal appearance of the liver. Heterogeneous enhancement within the liver. T hese are predominantly within the periphery of the liver in a geographic distribution involving the R IGHT and LEFT lobes. The prior study and probably representing hepatic infarcts. No bile duct dilatat ion. Small caliber portal vein. Gallbladder: Mildly distended with stones. Pancreas: Atrophy. Spleen: Atrophy with granulomata. Adrenal glands: Normal. Right kidney: Variable enhancement within the parenchyma. No obstruction. Left kidney: Variable enhancement within the parenchyma. No obstruction. Aorta: Extensive atherosclerosis of the aorta. Lymphadenopathy: None. Free fluid: There is a moderate amount of fluid within the peritoneal cavity which could be related t o peritoneal dialysis. There is a dialysis catheter coiled in the pelvis. There is free air in the ab domen which could be related to the dialysis or perforation. No progression since the prior study. GI tract: There is a loop of bowel herniating lateral from the LEFT abdominal cavity. This herniation was previously described and contains fat, fluid in the loop of ascending colon. There is circumfere ntial thickening approaching which may be an area of ischemia or even contained perforation. This was previously described. This could be a closed loop obstruction as the entry and exit and loops of col on are not dilated but the contained loop within the hernia sac is dilated with thickened wall. Pelvis: Free fluid. Erwin catheter present in the urinary bladder. Soft tissue anasarca. RIGHT centra l venous line. Bones: L4 anterolisthesis. Severe narrowing of the LEFT hip joint with deformity and subchondral cyst ic changes in lateral subluxation. CT/CT abdomen pelvis w con* [id number] IMPRESSION: 1. New changes within the liver and each kidney suspicious for ischemic change . 2. Loop of ascending colon extends beyond the peritoneal cavity into a RIGHT l ateral hernia. This hernia contains fluid, focal loop of dilated colon and poss ible ischemic changes within this colon. This may be a closed loop obstruction. This hernia was previously described. 3. Ascites with free air. Ascites may be related to the peritoneal dialysis as the free air also may be related to dialysis catheter manipulation or perforat ion. 4. Small caliber portal vein 5. Fluid within the distal esophagus. 6. Small bilateral pleural effusions. 7. Improving scattered pulmonary opacifications at the lung bases.
--- NOTE | 2020-12-02 09:45 | PC.CHAP ---
Pastoral Care Encounter/Spiritual Assessment Type of Contact [] Declined certified novell engineer visit [] Patient/Family/Request visit [] Outpatient visit [] Follow-up visit [] Physician referral [] Code/Alert [x] Routine visit [] Staff referral [] Actively dying [] Patient sleeping [x] Family support [] [] Out of room [] Palliative care [] [x] Receiving care in room [] Pre-surgical visit [] Trauma [] Long length of stay [x] ICU visit [] Other: Relational/Emotional Strength [] Patient feels connected with others/family/visitors/staff [] Distress [] Loneliness/isolation [] Abandonment Spirituality of Patient [] Person of Bhavana [] Attends Mandaen of their Bhavana [] Believes in Prayer [] Reads Bible or Restorationism materials [] There are Spiritual issues to be addressed Twisting Frame Operator Interventions [x] Prayer [] Active listening [] Non-anxious presence [] Spiritual/emotional support [] Crisis/trauma care [] Spiritual counseling [] Bereavement support [] Provided bereavement packet [] Provided Bible/devotional materials [] Provided toy/stuffed animal, coloring book to patient or family member [] Provided Communion [] Anointing/[place] [] Salvation [x] Completed spiritual assessment [] Other: Impact on Illness or Injury [] Angry [] Fearful [] Anxious [] Often cries [] Exhaustion [] Unable to work [] Unable to attend yazidism [] Unable to walk/stand [] Unable to read [] Unable to drive [] Unable to eat/drink [] Unable to sleep [] Unable to be with family [] Patient intubated [] Other: Summary patient unable to respond.. family present.. waiting on report from doctor regarding issues of healing or not.. will call certified novell engineer if family decides to remove breathing equipment Time spent with patient 15 min
[2020-12-02] MEDS: Dianeal low Ca w/1.5% dex 2,000 mL Bag 1000 ML INTRAPERIT (10:10)
[2020-12-02] MEDS: pantoprazole 40 mg SDV IVP (11:21)
[2020-12-02 12:00] LABS: ABG PCO2 36.6 mmHg (35-45); ABG PH Result 7.28 (7.35-7.45); Arterial Blood Gas Hematocrit 34.3 % (42-52); Base Excess ABG -8.6 mmol/L (-2.0-2.0); Blood Gas Allen Test Pos; Blood Gas Operator Identificat BD; Blood Gas Sample Site VEIN; Blood Gas Sample Type Venous; HCO3 ABG 17.4 mmol/L (22-26)
[2020-12-02 12:05] LABS: Glucose Point of Care 303 mg/dL (70-110)
[2020-12-02 12:21] LABS: INR 1.93 (0.8-1.2)
[2020-12-02 12:25] LABS: Fibrinogen 502 mg/dL (174-498)
[2020-12-02 12:35] LABS: D Dimer 6.34 ug/mIFEU (0-0.59)
[2020-12-02] MEDS: iodixanol 320 mg/mL 100mL Btl IV (12:35)
[2020-12-02 12:53] LABS: Troponin 5 6HR 275.1 ng/L (0-15); Troponin 5 6HR Delta 44.9 ng/L (0-12)
--- NOTE | 2020-12-02 13:00 | PC.SOCIAL ---
IMM Update: pg 2 of IMM updated and reviewed w/ patients mother and sister @ bedside. Copy provided.
[2020-12-02] MEDS: metroNIDAZOLE IV 500 MG/100 ML PREMIX 100 MG IV (13:29)
--- NOTE | 2020-12-02 13:56 | ECG_ITS ---
[facility] Test Date: 2020-12-02 Pat Name: Helio Reynoso Department: Room: [facility] Gender: Male Patient Accounts Specialist: : [id number] Requested By: Jared Oneill Order Number: [id number] Reading MD: Socrates Rios M.D. Measurements Intervals [place] Rate: 121 P: 88 NE: 142 QRS: 1 QRSD: 87 T: 152 QT: 303 QTc: 431 Interpretive Statements SINUS TACHYCARDIA WITH OCCASIONAL SUPRAVENTRICULAR PREMATURE COMPLEXES LOW QRS VOLTAGE [QRS DEFLECTION < 0.5/1.0 mV IN LIMB/CHEST LEADS] POSSIBLE ANTERIOR MYOCARDIAL INFARCTION , OF INDETERMINATE AGE [30 ms Q WAVE IN V3/V4, OR R < 0.2 mV IN V4] POSSIBLE INFERIOR MYOCARDIAL INFARCTION , PROBABLY OLD [30 ms Q WAVE IN II/aVF] Compared to ECG 12/02/2020 09:22:56 No significant changes Electronically Signed On 12-02-2020 15:14:31 CDT by Socrates Rios M.D. [email or web address]
[2020-12-02] MEDS: vancomycin 500 MG in sodium chloride 0.9% (100 ml) 100 ML 100 MG PR (14:10)
[2020-12-02] MEDS: morphine 10 mg/0.5 mL oral liq UD 5 MG SUBLINGUAL (15:28)
[2020-12-02] MEDS: morphine 10 mg/0.5 mL oral liq UD PO ×3 (16:28→23:56)
[2020-12-02] MEDS: LORazepam 2 mg/mL INJ 1 mL 1 MG IVP (16:29)
--- NOTE | 2020-12-02 18:58 | PC.NURSE ---
Late note. Nurse took patient to CT for a CTA. Accompanied by RT staff. While returning from CT, patient vomited. Patient was on BIPAP and aspirated. Nurse disconnected bipap. Patient was suctioned, and a NRBM was placed on PT at [address] wilkins notified. Patient is saturating at 95% on the NRBM.
--- NOTE | 2020-12-02 19:00 | PC.NURSE ---
Patient's family has decided to place the patient on comfort care. COmfort care process started. IV meds discontinued. Morphine and ativan given as indicated.
--- NOTE | 2020-12-02 19:01 | PC.NURSE ---
Shift Note Frequent safety and comfort rounds continue. Orders and/or nursing care completed as indicated. Patient monitored for response to intervention and treatment.r SHift summary: Patient transitioned to comfort care. Family is at bedside.
--- NOTE | 2020-12-02 22:48 | PC.NURSE ---
Patient family arrived at approx 2200. Chairs and drinks provided. Therapeutic communication given to new arrival of family about goals of comfort care. Comfort and support given to family from nursing staff. Patient repositioned for comfort. PRN morphine given for air hunger. Patient appears more comfortable after morphine. Will continue to monitor.
[2020-12-03] VITALS: BP 42/32; PULSE 82; RESP 5; TEMP 36.8; O2SAT 79
--- NOTE | 2020-12-03 00:43 | PC.NURSE ---
Patient at 0021. Dr. Madera verified expiration. Family at bedside wishes for patient to go to [facility]. [facility] called; patient not candidate for organ donation. Refusal number is [id number]. Georgina from [facility] states that [facility] will be in touch. Family at bedside to say goodbye. Post mortem care done after family left bedside.
--- NOTE | 2020-12-03 01:09 | PC.NURSE ---
[facility] contacted [facility]road Advisor Violet and stated patient is not a candidate. home notified.
--- NOTE | 2020-12-03 20:53 | P.DES_ITS ---
Discharge Providers DDS Date of Admission: 11/27/20 13:49 Date Summary Completed: 12/03/20 Attending Provider at Admission: Arnaldo Samson MD Time of : 00:21 Attending Provider at Discharge: Jared Oneill Primary Care Provider: Carla Ceballos MD DS Diagnoses Hospital Diagnoses (1) Sepsis: (2) Anemia: Qualifiers: Anemia type: due to chronic kidney disease Chronic kidney disease stage: on chronic dialysis Qualified Code(s): N18.6 - End stage renal disease; D63.1 - Anemia in chronic kidney disease; Z99.2 - Dependence on renal dialysis (3) Wound of foot: (4) NSTEMI (non-ST elevated myocardial infarction): (5) End stage renal disease: (6) Insulin dependent type 2 diabetes mellitus: (7) Peritoneal dialysis catheter in place: (8) Generalized weakness: (9) Secondary hyperparathyroidism: (10) Hypothyroidism: (11) Diastolic congestive heart failure: (12) COPD (chronic obstructive pulmonary disease): (13) Peritonitis due to infected peritoneal dialysis catheter: (14) Status post excisional debridement: (15) Acute encephalopathy: Reason for Visit Reason for Visit: GENERAL WEAKNESS Summary Date and Time of Date of : 12/03/20 Time of : 00:21 Summary Summary: 65-year-old gentleman with history of ESRD, on peritoneal dialysis, DM 2, prior history of left first digit osteomyelitis and amputation, with chronic nonhealing diabetic wound of left lower extremity following with wound care, not responsive to current therapy with debridement, prior course of antibiotic with recent treatment of 6 weeks of IV antibiotics, wound cultures positive for VRE, Pseudomonas, with recommendation for amputation, declined on several occasions PAD, with endovascular left lower extremity revascularization of left SFA in July HTN, anemia, hypothyroidism, COPD, other chronic conditions was admitted on 11/27 with multiple complaints including being able to drain dialysate for several days, with finding of acute peritonitis, lower extremity cellulitis, as well as deep wound of left foot with bone exposure, tunneling, drainage. CT abdomen pelvis with colon trapped in hernia, with initial consideration of possible ischemia, with multiple dilated small bowel loops with edema, possibly secondary to peritonitis, cholelithiasis, peritoneal fluid and dialysis catheter. Was seen by surgery. Study was followed up with CT with contrast which again showed portion of ascending colon inguinal hernia, with mild mural thickening unchanged, ascites and minimal free air within the hernia, no findings of bowel obstruction, no definite bowel perforation. From thereon was followed clinically. With sepsis, transient hypotension on admission, although did not require pressors, with noted troponin elevation thought to be secondary to demand ischemia, anemia, with worsening subsequently requiring PRBC transfusion. Received intraperitoneal infusion of antibiotic, but subsequently continued on IV antibiotics with Zosyn, vancomycin with systemic sepsis and multiple foci of infection. With noted also possible pneumonitis versus fluid overload in the lungs and presentation as well. COVID-19 PCR negative. Continues on peritoneal dialysis. Peritoneal fluid WBC count post initial improvement in cell counts. Underwent excisional debridement of necrotic subcutaneous tissue, tendon, muscle on plantar aspect of left foot computation of left fourth toe, I&D of abscess on plantar aspect of left foot. Cultures subsequently negative from peritoneal fluid. Foot cultures growing Pseudomonas. 1/3 bottles blood culture positive for coagulase-negative staph suspected due to contamination. Persistent infection of left foot with bone exposure, surrounding cellulitis. Amputation again discussed given persistent sepsis, life-threatening condition and risk of progression and , however, after initially considering, subsequently again declined surgery. Continued with IV antibiotics, wound care. Without signs of pneumonia, on baseline oxygen of 4 L by nasal cannula. With persistent leukocytosis. Generalized weakness. No abdominal pain, but poor appetite. C. difficile testing was additionally ordered due to past history of infection. His condition acutely decompensated overnight 12/01-12/02, noted unresponsive, in septic shock, requiring maximum Levophed, and vasopressin support, with ineffective respirations, placed on BiPAP support, given fluid boluses, antibiotic broadened additionally with Cipro, with noted worsening acute anemia, hemoglobin down to 6.4, given additional blood transfusions, with noted multiple organ injury, with kidney injury, troponin elevation, acute encephalopathy. With PE consideration, but without option for anticoagulation, although with oxygenation gradually improving. With noted worsening leukocytosis, with lactic acidosis of 11. Additionally assessed by contrast CT abdomen pelvis with noted new ischemic changes in liver, kidneys, with noted again loop of ascending colon extending beyond peritoneal cavity into right lateral hernia, with hernia containing fluid, focal loop of dilated colon and possible ischemic changes within the colon. Also noted right gaze preference with possible ischemic encephalopathy. Empirically started on Keppra, EEG ordered. His condition and findings were discussed in detail with his family, with concern for bowel ischemia requiring urgent surgical intervention, however, similarly to not wanting lower extremity amputation, family described he would not want additional surgery, additional life support to be continued subsequently. With lack of improvement with trial of conservative measures, with persistent septic shock, with multiorgan injury, with suspicion of ischemic encephalopathy, and his expressed goals of care, with continued updates, family eventually opted to transition to comfort measures alone and he with family at his bedside shortly after midnight on 12/03. Discharge Plan Discharge Patient Disposition: Condition: Stable DS Attestations Time Spent in /Discharge Care*: greater than 30 min Quality - AMI: AMI present?: Yes Quality - Stroke: CVA present?: Yes Symptom Onset Unknown: No Quality - VTE: VTE present?: No Deep Vein Thrombosis/Pulmonary Embolism Present on Admission: No Coding Level of Care Code Acute [employer] for g Fwd Diagnoses Sepsis A41.9 Anemia N18.6; D63.1; Z99.2 Anemia type: due to chronic kidney disease Chronic kidney disease stage: on chronic dialysis Wound of foot S91.309A NSTEMI (non-ST elevated myocardial infarction) I21.4 End stage renal disease N18.6 Insulin dependent type 2 diabetes mellitus E11.9; Z79.4 Peritoneal dialysis catheter in place Z99.2 Generalized weakness R53.1 Secondary hyperparathyroidism N25.81 Hypothyroidism E03.9 Diastolic congestive heart failure I50.30 COPD (chronic obstructive pulmonary disease) J44.9 Peritonitis due to infected peritoneal dialysis catheter T85.71XA; K65.9 Status post excisional debridement Z98.890 Acute encephalopathy G93.40
== END 2020-12-03 01:45 | disposition expired | DRG 853 ==
LOC: ER 13:08 → ICU 15:16 → MEDSURG 11-29 17:42 → ICU 12-02 01:08
PROVIDERS: Internal Medicine; Student in an Organized Health Care Education/Training Program; Surgery; Admitting Provider Family Medicine; Emergency Provider Emergency Medicine; PCP Internal Medicine; Visit Provider Internal Medicine
PROC: 0KBW0ZZ Excision of Left Foot Muscle, Open Approach (ICD-10-PCS; principal; 2020-11-28 10:30)
DX: A41.9 Sepsis, unspecified organism (principal); R65.21 Severe sepsis with septic shock; J18.9 Pneumonia, unspecified organism; I50.33 Acute on chronic diastolic (congestive) heart failure; N18.6 End stage renal disease; J96.21 Acute and chronic respiratory failure with hypoxia; K65.9 Peritonitis, unspecified; I21.A1 Myocardial infarction type 2; J44.0 Chronic obstructive pulmonary disease with (acute) lower respiratory infection; I13.2 Hypertensive heart and chronic kidney disease with heart failure and with stage 5 chronic kidney disease, or end stage renal disease; N25.81 Secondary hyperparathyroidism of renal origin; L97.424 Non-pressure chronic ulcer of left heel and midfoot with necrosis of bone; M86.9 Osteomyelitis, unspecified; L03.116 Cellulitis of left lower limb; L03.115 Cellulitis of right lower limb; G93.49 Other encephalopathy; K40.30 Unilateral inguinal hernia, with obstruction, without gangrene, not specified as recurrent; T85.71XA Infection and inflammatory reaction due to peritoneal dialysis catheter, initial encounter; E11.22 Type 2 diabetes mellitus with diabetic chronic kidney disease; Z99.2 Dependence on renal dialysis; D63.1 Anemia in chronic kidney disease; K76.9 Liver disease, unspecified; Z89.412 Acquired absence of left great toe; E11.621 Type 2 diabetes mellitus with foot ulcer; E11.51 Type 2 diabetes mellitus with diabetic peripheral angiopathy without gangrene; E11.69 Type 2 diabetes mellitus with other specified complication; Z98.62 Peripheral vascular angioplasty status; I95.9 Hypotension, unspecified; Z66 Do not resuscitate; K80.20 Calculus of gallbladder without cholecystitis without obstruction; B96.5 Pseudomonas (aeruginosa) (mallei) (pseudomallei) as the cause of diseases classified elsewhere; Z99.81 Dependence on supplemental oxygen; Y81.1 Therapeutic (nonsurgical) and rehabilitative general- and plastic-surgery devices associated with adverse incidents
CPT/HCPCS: 36415; 36416; 36430; 36592; 70450; 71045; 73701; 74018; 74176; 74177; 80051; 80053; 80202; 80500; 81003; 82330; 82550; 82728; 82803; 82805; 82962; 83036; 83605; 83735; 83880; 84100; 84145; 84443; 84484; 85007; 85025; 85362; 85378; 85384; 85610; 85651; 85730; 86140; 86403; 86850; 86900; 86920; 87040; 87070; 87075; 87077; 87086; 87176; 87186; 87205; 87426; 88305; 88311; 89050; 93005; 93970; 94640; 94664; 96365; 96366; 96367; 96372; 97110; 97162; 97167; 97530; 99291; C9113; J0610; J0696; J0744; J0885; J1580; J1644; J1815; J1953; J2020; J2060; J2370; J2543; J2704; J3010; J3370; J3475; J3490; J7050; P9016; Q3014; Q9967; S0030